=== PATIENT | male | born 1945 | race Caucasian/White ===

== ENCOUNTER 2017-02-10 15:37 | Emergency (ER) | payer BC ==
[~2017-02-10] VITALS: Ht 190.5 cm; Wt 126.5 kg
[~2017-02-10 15:37] MED LIST: ASPI81TA28 PO; ATOR-26 PO; CLOP1TAB15 PO; GABA-113 PO; GLC500 PO; ISOS30TA3 PO; LISI20TA55 PO; METO50TA16 PO; MONT1TAB3 PO
[2017-02-10 15:42] VITALS: TEMP 36.9; Ht 190.5 cm; Wt 126.5 kg
[2017-02-10 16:07] VITALS: O2SAT 94
[2017-02-10] MEDS ORDERED: GLC/500 PO (16:11)
[2017-02-10 16:13] LABS: HEMATOCRIT 42.9 % (42-52); MEAN CELL VOLUME 91.3 fL (80-100); MEAN CORPUSCULAR HEMOGLOBIN 31.1 pg (25-34); MEAN PLATELET VOLUME 11.9 fL (7.4-10.4); PLATELET COUNT 231 K/uL (130-400); WHITE BLOOD COUNT 10.04 K/uL (4.8-10.8)
--- NOTE | 2017-02-10 16:21 | DIAGNOSTIC IMAGING REPORT ---
CHEST ONE VIEW PORTABLE CLINICAL HISTORY: chest pain dyspnea COMPARISON STUDY: 08/12/2014 FINDINGS: Prior median sternotomy. Mild stable cardiomegaly. Lungs are clear. Diaphragms are smooth. IMPRESSION: Chronic change. No acute process. Electronically signed by: Lucian Shields M.D. 02/10/2017 4:20 PM Dictated Date/Time: 02/10/2017 4:19 PM
[2017-02-10 16:26] LABS: PROTHROMBIN TIME (PATIENT) 10.7 SECONDS (9.0-12.0)
[2017-02-10 16:37] LABS: BUN/CREATININE RATIO 18.8 (10-20); CALCIUM 8.7 mg/dl (8.5-10.1); CREATININE 1.8 mg/dl (0.60-1.40); POTASSIUM 4.3 mmol/L (3.5-5.1)
[2017-02-10 16:42] LABS: CKMB/CK RATIO 1.9 (0-3.0)
--- NOTE | 2017-02-10 18:24 | DIAGNOSTIC IMAGING REPORT ---
HEAD CT NONCONTRAST CT DOSE: 884.54 mGy.cm HISTORY: Headache headache TECHNIQUE: Multiaxial CT images of the head were performed without the use of intravenous contrast. Comparison: 07/13/2008 Findings: The paranasal sinuses and mastoid air cells are clear. The calvarium and skull base are intact. The ventricles and sulci are within normal limits. There is no mass, hematoma, midline shift, or acute infarct. 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 There is no new or interval finding. There is no evidence for acute intracranial hemorrhage. Impression: Chronic change including several old infarcts. No acute process. Electronically signed by: Lucian Shields M.D. 02/10/2017 6:22 PM Dictated Date/Time: 02/10/2017 6:20 PM
--- NOTE | 2017-02-10 18:56 | EMERGENCY ROOM VISIT NOTE ---
History Report prepared by Arabella: Liliana Love Under the Supervision of: Dr. Fer Velez D.O. First contact with patient: 15:38 Chief Complaint: CARDIAC ASSESSMENT Stated Complaint: PAIN ACROSS SHOULDERS,HEADACHE,BLURRED VISION Nursing Triage Summary: pt reports while shopping starte with pain in back and sob radiates into head , with vision changes , denies sob , speech is clear and appropriate, denies NV History of Present Illness The patient is a 71 year old male who presents to the Emergency Room with complaints of resolved upper back pain beginning just prior to arrival. He notes that he was out at the store shopping when he began to experiences this pain. He also experienced blurred vision and headache. The patient's notes that his speech changed but has now returned to baseline. Patient denies any symptoms at this time. 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 Review of Systems See HPI for pertinent positives & negatives. A total of 10 systems reviewed and were otherwise negative. Past Medical & Surgical Medical Problems: (1) Diabetes (2) HTN (hypertension) (3) GA (myocardial infarction) Surgical Problems: (1) S/P CABG x 2 Family History Cancer Diabetes mellitus Heart disease Hypertension Social History Smoking Status: Former Smoker Marital Status: Housing Status: lives with family Current/Historical Medications Scheduled Aspirin (Aspirin Ec), 81 MG PO HS Atorvastatin (Lipitor), 80 MG PO QAM Clopidogrel (Plavix), 75 MG PO QAM Gabapentin (Neurontin), 300 MG PO TID Isosorbide Mononitrate Ext Rel (Imdur Ext Rel), 30 MG PO QAM Lisinopril/Hctz (Prinzide 20-25MG), 1 TAB PO QAM Metformin Hcl (Glucophage), 500 MG PO BID Metoprolol Tartrate (Lopressor) (Lopressor), 50 MG PO BID Montelukast Sodium (Singulair), 10 MG PO HS Allergies Coded Allergies: No Known Allergies (Verified , 02/10/17) Physical Exam Vital Signs Date Time Temp Pulse Resp B/P Pulse Ox O2 Delivery O2 Flow Rate FiO2 02/10/17 17:57 56 20 116/74 94 Room Air 02/10/17 17:00 64 20 112/77 94 Room Air 02/10/17 16:09 61 02/10/17 16:07 94 Room Air 02/10/17 16:00 64 20 101/62 95 Room Air 02/10/17 15:42 36.9 67 18 94/58 94 Room Air Physical Exam CONSTITUTIONAL/VITAL SIGNS: Reviewed / noted above. GENERAL: Non-toxic in appearance. INTEGUMENTARY: Warm, dry, and [place]. HEAD: Normocephalic. EYES: without scleral icterus or trauma. ENT/OROPHARYNX: clear and moist. LYMPHADENOPATHY/NECK: Is supple without lymphadenopathy or meningismus. RESPIRATORY: Lungs clear and equal. CARDIOVASCULAR: Regular rate and rhythm. GI/ABDOMEN: Soft and nontender. No organomegaly or pulsatile mass. No rebound or guarding. Normal bowel sounds. EXTREMITIES: Warm and well perfused. BACK: No CVA tenderness. NEUROLOGICAL: Intact without focal deficits. PSYCHIATRIC: normal affect. MUSCULOSKELETAL: Normally developed with good muscle tone. Medical Decision & Procedures ER Provider Diagnostic Interpretation: Radiology results as stated below per my review and radiologist interpretation: CHEST ONE VIEW PORTABLE CLINICAL HISTORY: chest pain dyspnea COMPARISON STUDY: 08/12/2014 FINDINGS: Prior median sternotomy. Mild stable cardiomegaly. Lungs are clear. Diaphragms are smooth. IMPRESSION: Chronic change. No acute process. Electronically signed by: Lucian Shields M.D. 02/10/2017 4:20 PM Dictated Date/Time: 02/10/2017 4:[address] CT DOSE: 884.54 mGy.cm HISTORY: Headache headache TECHNIQUE: Multiaxial CT images of the head were performed without the use of intravenous contrast. Comparison: 07/13/2008 Findings: The paranasal sinuses and mastoid air cells are clear. The calvarium and skull base are intact. The ventricles and sulci are within normal limits. There is no mass, hematoma, midline shift, or acute infarct. 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 There is no new or interval finding. There is no evidence for acute intracranial hemorrhage. Impression: Chronic change including several old infarcts. No acute process. Electronically signed by: Lucian Shields M.D. 02/10/2017 6:22 PM Dictated Date/Time: 02/10/2017 6:20 PM Laboratory Results 02/10/17 16:00 02/10/17 16:00 Test 02/10/17 16:00 02/10/17 16:05 Red Blood Count 4.70 M/uL (4.7-6.1) Mean Corpuscular Volume 91.3 fL (80-100) Mean Corpuscular Hemoglobin 31.1 pg (25-34) Mean Corpuscular Hemoglobin Concent 34.0 g/dl (32-36) RDW Standard Deviation 49.0 fL (36.4-46.3) RDW Coefficient of Variation 14.5 % (11.5-14.5) Mean Platelet Volume 11.9 fL (7.4-10.4) Prothrombin Time 10.7 SECONDS (9.0-12.0) Prothromb Time International Ratio 1.0 (0.9-1.1) Activated Partial Thromboplast Time 24.7 SECONDS (21.0-31.0) Partial Thromboplastin Ratio 1.0 Anion Gap 13.0 mmol/L (3-11) Est Creatinine Clear Calc Drug Dose 55.5 ml/min Estimated GFR () 43.5 Estimated GFR (Non- 37.6 BUN/Creatinine Ratio 18.8 (10-20) Calcium Level 8.7 mg/dl (8.5-10.1) Total Bilirubin 0.5 mg/dl (0.2-1) Aspartate Amino Transf (AST/SGOT) 19 U/L (15-37) Alanine Aminotransferase (ALT/SGPT) 22 U/L (12-78) Alkaline Phosphatase 97 U/L (45-117) Total Creatine Kinase 99 U/L (39-308) Creatine Kinase MB 1.9 ng/ml (0.5-3.6) Creatine Kinase MB Ratio 1.9 (0-3.0) Total Protein 7.3 gm/dl (6.4-8.2) Albumin 3.6 gm/dl (3.4-5.0) Globulin 3.7 gm/dl (2.5-4.0) Albumin/Globulin Ratio 1.0 (0.9-2) Bedside Troponin I 0.000 ng/ml (0-0.045) Laboratory results as stated above per my review. ECG Indication: back/shoulder pain Rate (beats per minute): 64 Rhythm: normal sinus Findings: T-wave inversion (Lateral) Comparison ECG Date: When compared to numerous previous there is minimal new changes ED Course 1653: Previous medical records were reviewed. The patient was evaluated in room C12. A complete history and physical examination was performed. 1856: On reevaluation, the patient is hemodynamically stable. I discussed the results and findings with the patient. He verbalized agreement of the treatment plan. He was discharged home. Medical Decision Differential includes acute coronary syndrome, myocardial infarction, CVA, TIA, anemia, infection, pneumonia, UTI, pyelonephritis, poor nutrition, dehydration, electrolyte disturbance,hypoglycemia. This is a 71-year-old male who presents to the ED with a chief complaint of having a discomfort in the top of his back around 2:30 PM today. He states that his vision a little blurry and he also developed a headache and his speech seemed a little thick according to the . This occurred while he was walking through a store. He came to the emergency department for evaluation. His symptoms have resolved. He reports a history of GA, CABG, CVA, TIAs and diabetes. The patient's vital signs are normal. His physical exam was normal. Neurological exam is normal. He has no symptoms. CBC is normal. BUN is 34 creatinine is 1.8. Troponin is negative. Glucose was 156. Chest x-ray is negative for acute disease. EKG shows a normal sinus rhythm at a rate of [address] depressions in lateral leads. Patient has no chest pains or shortness of breath. CT scan of the brain did not show any acute disease. The patient was told the results of the test. He remains symptomatic during his ED stay. He is felt to be stable for discharge and outpatient follow-up. Impression Primary Impression: transient upper back pain Additional Impressions: Back ache Transient visual disturbance Scribe Attestation The scribe's documentation has been prepared under my direction and personally reviewed by me in its entirety. I confirm that the note above accurately reflects all work, treatment, procedures, and medical decision making performed by me. Departure Information Dispostion Home / Self-Care Referrals Chava Bell M.D. (PCP) Forms IMPORTANT VISIT INFORMATION Patient Instructions My [facility] Additional Instructions Follow-up with your doctor for further care and evaluation in 1-2 days. Return to the emergency department for worsening or new symptoms or any concerns. You have been examined and treated today on an emergency basis only. This is not a substitute for, or an effort to provide, complete comprehensive medical care. It is impossible to recognize and treat all injuries or illnesses in a single emergency department visit. It is therefore important that you follow up closely with your doctor. Call as soon as possible for an appointment. Problem Qualifiers
[2017-02-10 19:16] VITALS: BP 150/86; PULSE 54; O2SAT 98
[2017-08-17] MEDS ORDERED: LPR50X OR (11:30)
== END 2017-02-10 19:16 | disposition home or self-care (01) ==
LOC: C.EDB 15:38 → C.EDC 19:16
DX: M54.9 Dorsalgia, unspecified (principal); H53.9 Unspecified visual disturbance; I25.2 Old myocardial infarction; I10 Essential (primary) hypertension; E11.9 Type 2 diabetes mellitus without complications; Z95.1 Presence of aortocoronary bypass graft; Z86.73 Personal history of transient ischemic attack (TIA), and cerebral infarction without residual deficits; Z80.9 Family history of malignant neoplasm, unspecified; Z83.3 Family history of diabetes mellitus; Z82.49 Family history of ischemic heart disease and other diseases of the circulatory system; Z87.891 Personal history of nicotine dependence; Z79.82 Long term (current) use of aspirin; Z79.02 Long term (current) use of antithrombotics/antiplatelets; Z79.899 Other long term (current) drug therapy

== ENCOUNTER 2017-08-15 16:33 | Inpatient (IN) | payer BC, OTHER ==
[~2017-08-15] VITALS: Ht 190.5 cm; Wt 121.3 kg
[~2017-08-15 16:33] MED LIST changes: +GLC/500 PO; -GLC500 PO
[2017-08-15] MEDS ORDERED: ACET-1256 PO (17:01)
[2017-08-15] MEDS ORDERED: SODIUM CHLORIDE 0.9% 1000ML 2,000 ML IV STA (17:18)
[2017-08-15 17:30] LABS: BASO % 0.7 %; BASO ABS # 0.05 K/uL (0-0.2); COMPLETE YES; EOS % 1.5 %; HEMATOCRIT 31.1 % (42-52); IG% 0.1 %; LYMPH % 21.1 %; LYMPH ABS # 1.58 K/uL (1.2-3.4); MEAN CELL VOLUME 93.1 fL (80-100); MEAN CORPUSCULAR HEMOGLOBIN 29.9 pg (25-34); MEAN CORPUSCULAR HGB CONC 32.2 g/dl (32-36); MEAN PLATELET VOLUME 11.1 fL (7.4-10.4); MONO % 4.9 %; NEUT % 71.7 %; PLATELET COUNT 224 K/uL (130-400); RED BLOOD COUNT 3.34 M/uL (4.7-6.1); WHITE BLOOD COUNT 7.49 K/uL (4.8-10.8)
--- NOTE | 2017-08-15 17:34 | EMERGENCY ROOM VISIT NOTE ---
History Report prepared by Arabella: Ramone Means Under the Supervision of: Dr. Chel Castillo M.D. First contact with patient: 17:13 Chief Complaint: VOMITING Stated Complaint: WEAK, LIGHTHEADED, FLU SINCE SATURDAY- REFERRED Nursing Triage Summary: vomiting and diarrhea since , fever, dizziness, clammy, poor color, called pcp and told to bring to er, hx mi, cva, bypass surgery History of Present Illness The patient is a 71 year old male who presents to the Emergency Room with complaints of nausea that began two days ago. At this time, he suddenly became nauseated and began to experience vomiting and diarrhea. He also is also clammy , chilled, dizzy, weak, and lightheaded. He did not have any diarrhea today. He denies any chest pain, shortness of breath, melena, hematochezia, or abnormal urinary symptoms. He called his PCP today, and they told him to go to the ER. Per the patient's , she states that whenever the patient walks, he strays to the side, like he is intoxicated. He does not take any Lasix or other water pills. He has a past medical history of a SC, CVA, and a bypass surgery. He denies any trouble with his kidneys. Source of History: patient Onset: 2 days ago Position: other (GI) Symptom Intensity: moderate Quality: other (Nausea) Timing: constant Associated Symptoms: + chills, + diaphoresis, + nausea, + vomiting, + weakness, No fevers, No chest pain, No SOB, No melena, No hematochezia, No diarrhea, No urinary symptoms Review of Systems See HPI for pertinent positives & negatives. A total of 10 systems reviewed and were otherwise negative. Past Medical & Surgical Medical Problems: (1) Cerebrovascular disease (2) Coronary artery disease (3) Diabetes mellitus, type 2 (4) Dyslipidemia (5) GERD (gastroesophageal reflux disease) (6) Gout (7) History of atrial fibrillation (8) Hypertension (9) Peripheral vascular disease Surgical Problems: (1) Status post cataract extraction (2) Status post coronary artery bypass grafting (3) Status post repair of paraesophageal diaphragmatic hernia (4) Status post repair of ventral hernia (5) Status post tonsillectomy Family History Cancer Diabetes mellitus Heart disease Hypertension Social History Smoking Status: Former Smoker Drug Use: none Marital Status: Housing Status: lives with family Current/Historical Medications Scheduled Acetaminophen (Tylenol), 1,000 MG PO PRN UD Aspirin (Aspirin Ec), 81 MG PO HS Atorvastatin (Lipitor), 80 MG PO QAM Clopidogrel (Plavix), 75 MG PO QAM Gabapentin (Neurontin), 300 MG PO TID Isosorbide Mononitrate Ext Rel (Imdur Ext Rel), 30 MG PO QAM Lisinopril/Hctz (Prinzide 20-25MG), 1 TAB PO QAM Metformin Hcl (Glucophage), 500 MG PO BID Metoprolol Tartrate (Metoprolol Tartrate), 25 MG OR BID Montelukast Sodium (Singulair), 10 MG PO HS Scheduled PRN Indomethacin (Indocin), 50 MG PO TID PRN for gout attack Nitroglycerin (Nitrostat), 0.4 MG UT PRN PRN for chest pain Allergies Coded Allergies: No Known Allergies (Verified , 02/10/17) Physical Exam Vital Signs Date Time Temp Pulse Resp B/P (MAP) Pulse Ox O2 Delivery O2 Flow Rate FiO2 08/15/17 18:02 56 18 115/61 99 Room Air 08/15/17 17:12 56 08/15/17 17:07 53 16 87/53 98 Room Air 08/15/17 16:39 37.0 60 18 93/53 99 Room Air Physical Exam Vital signs reviewed. General: Ill appearing male, in no significant distress. Noted to be hypotensive. HEENT: No scleral icterus, PERRLA, neck supple. Dry mucous membranes. Atraumatic. Cardiovascular: Regular rate and rhythm, no extra sounds. Pulmonary: Clear to auscultation bilaterally, normal work of breathing. Abdomen: Soft, nontender, nondistended, positive bowel sounds. Musculoskeletal: Atraumatic, no peripheral edema. Neurologic: Patient awake alert and oriented x 3, full strength in all 4 extremities. Cranial nerves 2 through 12 grossly intact. Skin: Warm, dry, no rash Medical Decision & Procedures ER Provider Diagnostic Interpretation: Radiology results as stated below per my review and radiologist interpretation: CT HEAD WITHOUT CONTRAST (CT) CLINICAL HISTORY: dizzy, hypotension, gait abnormality COMPARISON STUDY: 02/10/2017 TECHNIQUE: Axial CT of the brain is performed from the vertex to the skull base. IV contrast was not administered for this examination. A dose lowering technique was utilized adhering to the principles of ALARA. CT DOSE: 614.27 mGy.cm FINDINGS: No intra or extra-axial mass lesions are visualized. There is no CT evidence of acute cortical infarction. There is no evidence of midline shift. There is no acute hemorrhage. No calvarial fractures are visualized. There are patchy white matter hypodensities likely on a small vessel basis. There is an old right occipital infarct. There is an old left basal ganglial lacunar infarct. There are old cortical infarctions within the left parietal lobe. There is no evidence of pathologic ventricular dilatation. There is no evidence of acute sinusitis IMPRESSION: Multiple old infarcts. No acute intracranial findings. Electronically signed by: Obdulio Ardon M.D. 08/15/2017 6:01 PM Dictated Date/Time: 08/15/2017 5:57 PM CHEST ONE VIEW PORTABLE CLINICAL HISTORY: hypotension COMPARISON STUDY: 02/10/2017 FINDINGS: The cardiac and mediastinal contours remain stable. There are postsurgical changes of a midline sternotomy. There is a thoracic scoliosis. There is no failure. There is no focal pulmonary consolidation. There are no pleural effusions.[ IMPRESSION: No active disease in the chest. Electronically signed by: Obdulio Ardon M.D. 08/15/2017 5:50 PM Dictated Date/Time: 08/15/2017 5:50 PM (RENAL)RETROPERITON COMP CLINICAL HISTORY: 71 years-old Male presenting with MCKENZIE. TECHNIQUE: Real-time grayscale and limited color Doppler ultrasound imaging of the kidneys and bladder was performed. COMPARISON: CT from 09/11/2014. FINDINGS: Right kidney: Normal echogenicity. Right kidney measures 10.4 cm. No hydronephrosis. No convincing evidence of calculus or mass. Normal perfusion. Left kidney: Normal echogenicity. Left kidney measures 10.2 cm. No hydronephrosis. No convincing evidence of calculus or mass. Normal perfusion. Bladder: No bladder wall thickening. Bilateral ureteral jets not visualized. Other: None. IMPRESSION: 1. Essentially normal renal ultrasound. No evidence of obstruction. Electronically signed by: Chava Broussard M.D. 08/15/2017 8:33 PM Dictated Date/Time: 08/15/2017 8:32 PM Laboratory Results Test 08/15/17 17:15 08/15/17 17:24 08/15/17 17:27 08/15/17 18:05 Prothrombin Time 10.5 SECONDS (9.0-12.0) Prothromb Time International Ratio 1.0 (0.9-1.1) Activated Partial Thromboplast Time 22.2 SECONDS (21.0-31.0) Partial Thromboplastin Ratio 0.9 Magnesium Level 2.2 mg/dl (1.8-2.4) Direct Bilirubin < 0.1 mg/dl (0-0.2) Total Creatine Kinase 84 U/L (39-308) Creatine Kinase MB 1.2 ng/ml (0.5-3.6) Creatine Kinase MB Ratio 1.4 (0-3.0) Bedside Troponin I < 0.030 ng/ml (0-0.045) Bedside Lactic Acid Venous 1.10 mmol/L (0.90-1.70) Urine Color DK YELLOW Urine Appearance CLOUDY (CLEAR) Urine pH 5.0 (4.5-7.5) Urine Specific [place] 1.025 (1.000-1.030) Urine Protein NEG (NEG) Urine Glucose (UA) NEG (NEG) Urine Ketones TRACE (NEG) Urine Occult Blood NEG (NEG) Urine Nitrite NEG (NEG) Urine Bilirubin NEG (NEG) Urine Urobilinogen NEG (NEG) Urine Leukocyte Esterase SMALL (NEG) Urine WBC (Auto) 5-10 /hpf (0-5) Urine RBC (Auto) 0-4 /hpf (0-4) Urine Hyaline Casts (Auto) 5-10 /lpf (0-5) Urine Epithelial Cells (Auto) >30 /lpf (0-5) Urine Bacteria (Auto) NEG (NEG) Urine Pathogenic Casts /lpf (0) Laboratory results per my review. Medications Administered Medications (Trade) Dose Ordered Sig/Wilemr Route Start Time Stop Time Status Last Admin Dose Admin Sodium Chloride 2,000 ml @ 999 mls/hr Q2H1M STAT IV 08/15/17 17:18 08/16/17 09:28 DC 08/15/17 17:18 999 MLS/HR ECG Indication: weakness Rate (beats per minute): 54 Rhythm: sinus bradycardia Findings: nonspecific-ST abn (anterior and lateral), no ectopy ED Course 1713: Past medical records reviewed. The patient was evaluated in room A9. A complete history and physical examination was performed. 1718: Ordered Sodium Chloride 2000 ml @ 999 mls/hr IV 1907: Upon reevaluation, the patient is resting comfortably. I discussed laboratory and radiographic results with him. He verbalized agreement of the treatment plan. I spoke with Dr. Cardenas of the [facility]. The patient will be evaluated for further management and care. Medical Decision Differential diagnosis: Etiologies such as metabolic, infection, hypo/hyperglycemia, electrolyte abnormalities, cardiac sources, intracerebral event, toxicologic, neurologic, as well as others were entertained. This pt was evaluated and found to be in no distress. IV access was obtained and lab work was drawn. Pt was found to be hypotensive. He was hydrated with 2L NSS. Lab work reveals a creatinine of 2.9 with creatinine of 76. Head CT was performed and is indicative of old injury. Renal US is negative. UA is negative. Pt will be evaluated by the hospitalist for further management. Medication Reconcilliation Current Medication List: was personally reviewed by me Blood Pressure Screening Patient's blood pressure: Low blood pressure Consults Time Called: 1903 Consulting Physician: Dr. Cardenas - [facility] Returned Call: 1907 I reviewed the patient's case with him. He will evaluate the patient for further management. Impression Primary Impression: Dehydration Additional Impressions: MCKENZIE (acute kidney injury) Hypotension Scribe Attestation The scribe's documentation has been prepared under my direction and personally reviewed by me in its entirety. I confirm that the note above accurately reflects all work, treatment, procedures, and medical decision making performed by me. Departure Information Dispostion Being Evaluated By Hospitalist Prescriptions Metoprolol Tartrate (Metoprolol Tartrate) 50 Mg Tab 25 MG OR BID, #30 TAB Prov: Michael Walton M.D. 08/17/17 Referrals Chava Bell M.D. (PCP) Patient Instructions My [facility] Problem Qualifiers
[2017-08-15 17:49] LABS: ALT/SGPT 22 U/L (12-78); BLOOD UREA NITROGEN 76 mg/dl (7-18); BUN/CREATININE RATIO 26.3 (10-20); CALCIUM 8.6 mg/dl (8.5-10.1); CARBON DIOXIDE 23 mmol/L (21-32); CHLORIDE 112 mmol/L (98-107); GLUCOSE 91 mg/dl (70-99); MAGNESIUM 2.2 mg/dl (1.8-2.4); POTASSIUM 4.6 mmol/L (3.5-5.1); SODIUM 143 mmol/L (136-145)
--- NOTE | 2017-08-15 17:52 | DIAGNOSTIC IMAGING REPORT ---
CHEST ONE VIEW PORTABLE CLINICAL HISTORY: hypotension COMPARISON STUDY: 02/10/2017 FINDINGS: The cardiac and mediastinal contours remain stable. There are postsurgical changes of a midline sternotomy. There is a thoracic scoliosis. There is no failure. There is no focal pulmonary consolidation. There are no pleural effusions.[ IMPRESSION: No active disease in the chest. Electronically signed by: Obdulio Ardon M.D. 08/15/2017 5:50 PM Dictated Date/Time: 08/15/2017 5:50 PM
[2017-08-15 17:54] LABS: ALKALINE PHOSPHATASE 76 U/L (45-117); AST/SGOT 19 U/L (15-37); CKMB/CK RATIO 1.4 (0-3.0)
--- NOTE | 2017-08-15 18:02 | DIAGNOSTIC IMAGING REPORT ---
CT HEAD WITHOUT CONTRAST (CT) CLINICAL HISTORY: dizzy, hypotension, gait abnormality COMPARISON STUDY: 02/10/2017 TECHNIQUE: Axial CT of the brain is performed from the vertex to the skull base. IV contrast was not administered for this examination. A dose lowering technique was utilized adhering to the principles of ALARA. CT DOSE: 614.27 mGy.cm FINDINGS: No intra or extra-axial mass lesions are visualized. There is no CT evidence of acute cortical infarction. There is no evidence of midline shift. There is no acute hemorrhage. No calvarial fractures are visualized. There are patchy white matter hypodensities likely on a small vessel basis. There is an old right occipital infarct. There is an old left basal ganglial lacunar infarct. There are old cortical infarctions within the left parietal lobe. There is no evidence of pathologic ventricular dilatation. There is no evidence of acute sinusitis IMPRESSION: Multiple old infarcts. No acute intracranial findings. Electronically signed by: Obdulio Ardon M.D. 08/15/2017 6:01 PM Dictated Date/Time: 08/15/2017 5:57 PM
[2017-08-15 18:30] LABS: URINE APPEARANCE CLOUDY (CLEAR); URINE BILIRUBIN NEG (NEG); URINE COLOR DK YELLOW; URINE EPITHELIAL CELL AUTO >30 /lpf (0-5); URINE NITRITE NEG (NEG); URINE SPECIFIC GRAVITY 1.025 (1.000-1.030); UROBILINOGEN NEG (NEG); ZZUR CULT IF INDIC CLEAN CATCH NO
[2017-08-15 18:36] LABS: MANUAL MICROSCOPIC REQUIRED? NO; REVIEW REQ? YES
--- NOTE | 2017-08-15 19:17 | History and Physical ---
History & Physical Date & Time of Service: Aug 15, 2017 at 19:17 . Chief Complaint: weakness . Primary Care Physician: Chava Bell M.D. . History of Present Illness Source: patient, family, clinic records, hospital records 71 [address]O male followed by Dr. Bell for Family Medicine. History of ischemic heart disease, cerebrovascular disease, hypertension, DM type 2, and other problems noted below. He was in his usual state of health until 2 nights prior to admission when he developed nausea, vomiting, diarrhea after eating supper. No hematemesis, melena, hematochezia. No abdominal pain. Also noted fever, chills, myalgias. Had multiple episodes of diarrhea that evening. Nausea and vomiting subsided by the next morning. Yesterday and today felt weak and lightheaded. Referred to ED for further evaluation. [place] somewhat better after receiving IV fluids in ED. . Past Medical/Surgical History Chronic and Resolved Medical Problems: (1) Cerebrovascular disease Permanent Comment: s/p stroke Status: Chronic (2) Coronary artery disease Permanent Comment: s/p CA, s/p CABG x 2 Status: Chronic (3) Diabetes mellitus, type 2 Status: Chronic (4) Dyslipidemia Status: Chronic (5) GERD (gastroesophageal reflux disease) Status: Chronic (6) Gout Status: Chronic (7) History of atrial fibrillation Status: Chronic (8) Hypertension Status: Chronic (9) Peripheral vascular disease Status: Chronic Surgical Problems: (1) Status post cataract extraction Status: Chronic (2) Status post coronary artery bypass grafting Status: Chronic (3) Status post repair of paraesophageal diaphragmatic hernia Status: Chronic (4) Status post repair of ventral hernia Status: Chronic (5) Status post tonsillectomy Status: Chronic . Family History Cancer Diabetes mellitus Heart disease Hypertension Social History Smoking Status: Former Smoker Alcohol Use: occasionally Drug Use: none Marital Status: Immunizations History of Influenza Vaccine: Yes History of Tetanus Vaccine?: Pt. states he is up to date History of Pneumococcal: Yes History of Hepatitis B Vaccine: pt states vaccine given prior to 2002 Multi-Drug Resistant Organisms History of MDRO: No Allergies Coded Allergies: No Known Allergies (Verified , 02/10/17) Home Medications Scheduled Acetaminophen (Tylenol), 1,000 MG PO PRN UD Aspirin (Aspirin Ec), 81 MG PO HS Atorvastatin (Lipitor), 80 MG PO QAM Clopidogrel (Plavix), 75 MG PO QAM Gabapentin (Neurontin), 300 MG PO TID Isosorbide Mononitrate Ext Rel (Imdur Ext Rel), 30 MG PO QAM Lisinopril/Hctz (Prinzide 20-25MG), 1 TAB PO QAM Metformin Hcl (Glucophage), 500 MG PO BID Metoprolol Tartrate (Lopressor) (Lopressor), 50 MG PO BID Montelukast Sodium (Singulair), 10 MG PO HS Scheduled PRN Indomethacin (Indocin), 50 MG PO TID PRN for gout attack Nitroglycerin (Nitrostat), 0.4 MG UT PRN PRN for chest pain Review of Systems Constitutional: + fever, + chills, + fatigue Eyes: No worsening of vision, No diplopia ENT: No nasal symptoms, No sore throat Respiratory: No cough, No shortness of breath Cardiovascular: No chest pain, No edema, No palpitations Abdomen: + problem reported (as noted above in HPI) Musculoskeletal: + muscle pain, No joint pain Genitourinary - Male: No hematuria, No dysuria Neurologic: + problem reported (no headaches; + diabetic neuropathy) Hematologic / Lymphatic: No abnormal bleeding/bruising, No swollen lymph nodes Integumentary: No rash, No new/changing skin lesions Physical Exam Vital Signs Date Time Temp Pulse Resp B/P (MAP) Pulse Ox O2 Delivery O2 Flow Rate FiO2 08/15/17 18:02 56 18 115/61 99 Room Air 08/15/17 17:12 56 08/15/17 17:07 53 16 87/53 98 Room Air 08/15/17 16:39 37.0 60 18 93/53 99 Room Air General Appearance: WD/WN, no apparent distress Head: normocephalic, atraumatic Eyes: normal inspection, PERRL, EOMI, sclerae normal (conjunctivae pink) ENT: normal ENT inspection, hearing grossly normal, pharynx normal Neck: supple, no adenopathy, thyroid normal, no JVD, trachea midline Respiratory/Chest: lungs clear (to A&P), no respiratory distress, no accessory muscle use Cardiovascular: regular rate, rhythm, no edema, no gallop, no JVD, normal peripheral pulses, + systolic murmur (I/ systolic murmur at base) Abdomen/GI: normal bowel sounds, non tender, soft, no organomegaly, no pulsatile mass Extremities/Musculoskelatal: normal inspection, no calf tenderness, normal capillary refill, no pedal edema, + pertinent finding (no diabetic foot lesions) 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 (PERRL, EOMI, no facial palsy, no dysarthria), no motor/sensory deficits (motor strenght upper and lower extremities 5/5 bilat), alert, normal mood/affect, normal reflexes (patellar DTR 's 2/2, plantar reflexes downgoing), oriented x 3 Skin: normal color, warm/dry, no rash Lymphatic: no adenopathy (cervical) Diagnostics Laboratory Results Results Past 24 Hours Test 08/15/17 17:15 08/15/17 17:24 08/15/17 17:27 08/15/17 18:05 Range/Units White Blood Count 7.49 4.8-10.8 K/uL Red Blood Count 3.34 4.7-6.1 M/uL Hemoglobin 10.0 14.0-18.0 g/dL Hematocrit 31.1 42-52 % Mean Corpuscular Volume 93.1 80-100 fL Mean Corpuscular Hemoglobin 29.9 25-34 pg Mean Corpuscular Hemoglobin Concent 32.2 32-36 g/dl Platelet Count 224 130-400 K/uL Mean Platelet Volume 11.1 7.4-10.4 fL Neutrophils (%) (Auto) 71.7 % Lymphocytes (%) (Auto) 21.1 % Monocytes (%) (Auto) 4.9 % Eosinophils (%) (Auto) 1.5 % Basophils (%) (Auto) 0.7 % Neutrophils # (Auto) 5.37 1.4-6.5 K/uL Lymphocytes # (Auto) 1.58 1.2-3.4 K/uL Monocytes # (Auto) 0.37 0.11-0.59 K/uL Eosinophils # (Auto) 0.11 0-0.5 K/uL Basophils # (Auto) 0.05 0-0.2 K/uL RDW Standard Deviation 49.7 36.4-46.3 fL RDW Coefficient of Variation 14.5 11.5-14.5 % Immature Granulocyte % (Auto) 0.1 % Immature Granulocyte # (Auto) 0.01 0.00-0.02 K/uL Sodium Level 143 136-145 mmol/L Potassium Level 4.6 3.5-5.1 mmol/L Chloride Level 112 98-107 mmol/L Carbon Dioxide Level 23 21-32 mmol/L Anion Gap 8.0 3-11 mmol/L Blood Urea Nitrogen 76 7-18 mg/dl Creatinine 2.90 0.60-1.40 mg/dl Est Creatinine Clear Calc Drug Dose 33.7 ml/min Estimated GFR () 24.5 Estimated GFR (Non- 21.1 BUN/Creatinine Ratio 26.3 10-20 Random Glucose 91 70-99 mg/dl Calcium Level 8.6 8.5-10.1 mg/dl Magnesium Level 2.2 1.8-2.4 mg/dl Total Bilirubin 0.4 0.2-1 mg/dl Direct Bilirubin < 0.1 0-0.2 mg/dl Aspartate Amino Transf (AST/SGOT) 19 15-37 U/L Alanine Aminotransferase (ALT/SGPT) 22 12-78 U/L Alkaline Phosphatase 76 45-117 U/L Total Creatine Kinase 84 39-308 U/L Creatine Kinase MB 1.2 0.5-3.6 ng/ml Creatine Kinase MB Ratio 1.4 0-3.0 Total Protein 6.6 6.4-8.2 gm/dl Albumin 3.4 3.4-5.0 gm/dl Bedside Troponin I < 0.030 0-0.045 ng/ml Bedside Lactic Acid Venous 1.10 0.90-1.70 mmol/L Urine Color DK YELLOW Urine Appearance CLOUDY CLEAR Urine pH 5.0 4.5-7.5 Urine Specific [place] 1.025 1.000-1.030 Urine Protein NEG NEG Urine Glucose (UA) NEG NEG Urine Ketones TRACE NEG Urine Occult Blood NEG NEG Urine Nitrite NEG NEG Urine Bilirubin NEG NEG Urine Urobilinogen NEG NEG Urine Leukocyte Esterase SMALL NEG Urine WBC (Auto) 5-10 0-5 /hpf Urine RBC (Auto) 0-4 0-4 /hpf Urine Hyaline Casts (Auto) 5-10 0-5 /lpf Urine Epithelial Cells (Auto) >30 0-5 /lpf Urine Bacteria (Auto) NEG NEG Urine Pathogenic Casts 0 /lpf Microbiology Results 08/15/17 Blood Culture, Received Pending 08/15/17 Blood Culture, Received Pending Diagnostic Radiology CHEST ONE VIEW PORTABLE FINDINGS: The cardiac and mediastinal contours remain stable. There are postsurgical changes of a midline sternotomy. There is a thoracic scoliosis. There is no failure. There is no focal pulmonary consolidation. There are no pleural effusions.[ IMPRESSION: No active disease in the chest. Electronically signed by: Obdulio Ardon M.D. 08/15/2017 5:50 PM Dictated Date/Time: 08/15/2017 5:[address] HEAD WITHOUT CONTRAST (CT) FINDINGS: No intra or extra-axial mass lesions are visualized. There is no CT evidence of acute cortical infarction. There is no evidence of midline shift. There is no acute hemorrhage. No calvarial fractures are visualized. There are patchy white matter hypodensities likely on a small vessel basis. There is an old right occipital infarct. There is an old left basal ganglial lacunar infarct. There are old cortical infarctions within the left parietal lobe. There is no evidence of pathologic ventricular dilatation. There is no evidence of acute sinusitis IMPRESSION: Multiple old infarcts. No acute intracranial findings. Electronically signed by: Obdulio Ardon M.D. 08/15/2017 6:01 PM Dictated Date/Time: 08/15/2017 5:57 PM (RENAL)RETROPERITON COMP FINDINGS: Right kidney: Normal echogenicity. Right kidney measures 10.4 cm. No hydronephrosis. No convincing evidence of calculus or mass. Normal perfusion. Left kidney: Normal echogenicity. Left kidney measures 10.2 cm. No hydronephrosis. No convincing evidence of calculus or mass. Normal perfusion. Bladder: No bladder wall thickening. Bilateral ureteral jets not visualized. Other: None. IMPRESSION: 1. Essentially normal renal ultrasound. No evidence of obstruction. Electronically signed by: Chava Broussard M.D. 08/15/2017 8:33 PM Dictated Date/Time: 08/15/2017 8:32 PM . EKG EKG performed at 17:06 reviewed and demonstrated SB at 54 / minute, slight ST depression and biphasic T-waves I, aVL. Tracing compared to 02/10/17- no significant changes. . Impression Assessment and Plan ACUTE KIDNEY INJURY Serum creatine 2.9, compared to baseline of 1.3. Acute kidney injury probably due to volume depletion from vomiting and diarrhea. No obstruction per renal US. IV fluids. Hold lisinopril, HCTZ, metformin. Follow labs. HYPOTENSION BP's in ED 93/53, 87/53. Hemodynamics improved with fluid resuscitation. Hypotension most likely due to volume depletion. Does not appear to be septic. No GI bleeding Hold lisinopril and HCTZ. Decrease metoprolol dose temporarily. Continue IV fluids. NAUSEA / VOMITING / DIARRHEA Probable viral gastroenteritis. Symptoms resolved. CORONARY ARTERY DISEASE Status post CA, status post CABG. No anginal symptoms. Continue aspirin and metoprolol (at reduced dose until hemodynamics improve). CEREBROVASCULAR DISEASE CT demonstrates old stroke, no new events. Continue aspirin and statin. HYPERTENSION BP's low in ED. Hold lisinopril and HCTZ. Reduced dose of metoprolol until hemodynamics improve. Follow and titrate Rx. DM TYPE 2 Well-controlled at home. Random blood sugar in ED 91. Hold metformin during hospital stay. Follow blood sugars. Lantus + NovoLog per protocol. VTE PROPHYLAXIS Moderate risk. SQ heparin. Ambulate. RESUSCITATION STATUS Full code. DISPOSITION Admit to Med-Surg Unit. Expected discharge to home. Family Medicine follow-up with Dr. Bell. . VTE Prophylaxis Risk Level: Moderate Given or contraindicated: Unfractionated heparin SQ
[2017-08-15] MEDS ORDERED: ACETAMINOPHEN 325 MG TAB PO PRN (19:30)
[2017-08-15] MEDS ORDERED: ONDANSETRON INJ 2 MG/ML 2 ML VIAL IV PRN (19:30)
[2017-08-15 19:49] LABS: PARTIAL THROMBOPLASTIN RATIO 0.9; PROTHROMBIN TIME (PATIENT) 10.5 SECONDS (9.0-12.0)
[2017-08-15] MEDS ORDERED: INDO-24 PO (20:01)
[2017-08-15] MEDS ORDERED: NTRGSL/4 UT (20:01)
[2017-08-15] MEDS ORDERED: NITROGLYCERIN 0.4 MG SL PER TAB CHARGE UT PRN (20:30)
--- NOTE | 2017-08-15 20:35 | DIAGNOSTIC IMAGING REPORT ---
(RENAL)RETROPERITON COMP CLINICAL HISTORY: 71 years-old Male presenting with MCKENZIE. TECHNIQUE: Real-time grayscale and limited color Doppler ultrasound imaging of the kidneys and bladder was performed. COMPARISON: CT from 09/11/2014. FINDINGS: Right kidney: Normal echogenicity. Right kidney measures 10.4 cm. No hydronephrosis. No convincing evidence of calculus or mass. Normal perfusion. Left kidney: Normal echogenicity. Left kidney measures 10.2 cm. No hydronephrosis. No convincing evidence of calculus or mass. Normal perfusion. Bladder: No bladder wall thickening. Bilateral ureteral jets not visualized. Other: None. IMPRESSION: 1. Essentially normal renal ultrasound. No evidence of obstruction. Electronically signed by: Chava Broussard M.D. 08/15/2017 8:33 PM Dictated Date/Time: 08/15/2017 8:32 PM
[2017-08-15] MEDS ORDERED: DEXTROSE 50% 50 ML SYR IV PRN (21:00)
[2017-08-15] MEDS ORDERED: GLUCOSE 10 TABS/TUBE PO PRN (21:00)
[2017-08-15] MEDS: INSULIN ASPART 100 UNITS/ML 3 ML PEN SC SCH (21:00)
[2017-08-15] MEDS ORDERED: GLUCAGON FOR INJ 1 MG VIAL SQ PRN (21:00)
[2017-08-15] MEDS ORDERED: GLUCOSE 40% GEL 15 GM TUBE PO PRN (21:00)
[2017-08-15] MEDS: INSULIN GLARGINE SOLOSTAR 100 UNITS/ML 3 ML PEN SC SCH (21:15)
[2017-08-15] MEDS: METOPROLOL TARTRATE 25 MG TAB PO SCH (21:15)
[2017-08-15 21:19] VITALS: BP 124/82; PULSE 60; TEMP 36.9; O2SAT 100; Ht 190.5 cm; Wt 121.3 kg
[2017-08-15 21:30] VITALS: PULSE 56
[2017-08-15] MEDS: ASPIRIN 81 MG ECTAB PO SCH (21:34)
[2017-08-15] MEDS: GABAPENTIN 300 MG CAP PO SCH (21:34)
[2017-08-15] MEDS: MONTELUKAST SOD 10 MG TAB PO SCH (21:34)
[2017-08-15] MEDS: HEPARIN SOD 5000 UNIT/0.5 ML CARP SQ SCH (21:39)
[2017-08-15] MEDS: SODIUM CHLORIDE 0.9% 1000ML 1,000 ML IV SCH (22:31)
[2017-08-15 23:52] VITALS: BP 97/56; PULSE 66; TEMP 36.7; O2SAT 98
[2017-08-16 05:36] LABS: HEMATOCRIT 26.6 % (42-52); MEAN CORPUSCULAR HEMOGLOBIN 31.1 pg (25-34); MEAN CORPUSCULAR HGB CONC 33.5 g/dl (32-36); MEAN PLATELET VOLUME 10.9 fL (7.4-10.4); PLATELET COUNT 171 K/uL (130-400); RED BLOOD COUNT 2.86 M/uL (4.7-6.1); WHITE BLOOD COUNT 5.49 K/uL (4.8-10.8)
[2017-08-16] MEDS: SODIUM CHLORIDE 0.9% 1000ML 1,000 ML IV SCH (06:11)
[2017-08-16 06:13] LABS: ESTIMATED AVERAGE GLUCOSE 134 mg/dl; HA1C FLAG Normal (Normal)
[2017-08-16 06:19] LABS: BUN/CREATININE RATIO 38.2 (10-20); CALCIUM 7.8 mg/dl (8.5-10.1); CREATININE 1.7 mg/dl (0.60-1.40); POTASSIUM 4.5 mmol/L (3.5-5.1)
[2017-08-16] MEDS: INSULIN ASPART 100 UNITS/ML 3 ML PEN SC SCH ×4 (06:30→21:00)
[2017-08-16 07:20] VITALS: BP 139/71; PULSE 68; TEMP 36.3; O2SAT 100
[2017-08-16] MEDS: INSULIN GLARGINE SOLOSTAR 100 UNITS/ML 3 ML PEN SC SCH ×2 (08:00→21:50)
[2017-08-16] MEDS: ATORVASTATIN 40 MG TAB PO SCH (08:05)
[2017-08-16] MEDS: METOPROLOL TARTRATE 25 MG TAB PO SCH ×2 (08:06→21:44)
[2017-08-16] MEDS: CLOPIDOGREL BISULFATE 75 MG TAB PO SCH (08:06)
[2017-08-16] MEDS: ISOSORBIDE MONONITRATE 30 MG TABCR PO SCH (08:06)
[2017-08-16] MEDS: GABAPENTIN 300 MG CAP PO SCH ×3 (08:06→21:45)
[2017-08-16] MEDS: HEPARIN SOD 5000 UNIT/0.5 ML CARP SQ SCH ×2 (08:11→21:49)
[2017-08-16 10:17] VITALS: BP 139/71; PULSE 68; TEMP 36.3; O2SAT 100
[2017-08-16 15:28] VITALS: BP 121/64; PULSE 66; TEMP 36.9; O2SAT 97
--- NOTE | 2017-08-16 15:55 | Progress Note ---
Progress Note Date of Service Aug 16, 2017. Progress Note Since night time hospital admission, patient doing well. Seen and examined with patient's at bedside. patient denies further symptoms of nausea, vomiting, diarrhea. creatinine after IV fluid trended down from 2.9 to 1.7. switched from IV fluids to oral intake and diet. creatinine baseline from outpatient labs was 1.33. will repeat labs tomorrow AM. Other issues CORONARY ARTERY DISEASE Status post [place], status post CABG. No anginal symptoms. Continue aspirin and metoprolol (at reduced dose until hemodynamics improve). CEREBROVASCULAR DISEASE CT demonstrates old stroke, no new events. Continue aspirin and statin. HYPERTENSION BP's low in ED. Hold lisinopril and HCTZ. Reduced dose of metoprolol until hemodynamics improve. Follow and titrate Rx. DM TYPE 2 Well-controlled at home. Random blood sugar in ED 91. Hold metformin during hospital stay. Follow blood sugars. Lantus + NovoLog per protocol. VTE PROPHYLAXIS Moderate risk. SQ heparin. Ambulate. General Appearance: WD/WN, no apparent distress Head: normocephalic, atraumatic Eyes: normal inspection, PERRL, EOMI, sclerae normal ENT: normal ENT inspection, hearing grossly normal, pharynx normal Neck: supple, no adenopathy, thyroid normal, no JVD, trachea midline Respiratory/Chest: lungs clear no respiratory distress, no accessory muscle use Cardiovascular: regular rate, rhythm, no edema, no gallop, no JVD, normal peripheral pulses, I/ systolic murmur at base Abdomen/GI: normal bowel sounds, non tender, soft, no organomegaly, no pulsatile mass Extremities: normal inspection, no calf tenderness, normal capillary refill, no pedal edema, Neurologic, EOMI, no dysarthria, no motor/sensory deficits, alert, normal mood/ affect, Skin: normal color, warm/dry, no rash Disposition: likely discharge home tomorrow. follow up appoints with Dr. Bell at [facility] on 08/19/17 at 8:45 AM have been made
[2017-08-16 16:00] VITALS: O2SAT 97
[2017-08-16] MEDS: ASPIRIN 81 MG ECTAB PO SCH (21:44)
[2017-08-16] MEDS: MONTELUKAST SOD 10 MG TAB PO SCH (21:45)
[2017-08-17] VITALS: O2SAT 97
[2017-08-17 00:09] VITALS: BP 134/75; PULSE 68; TEMP 36.9; O2SAT 97
[2017-08-17 05:51] VITALS: BP 129/77; PULSE 70; TEMP 36.7; O2SAT 97
[2017-08-17] MEDS: CLOPIDOGREL BISULFATE 75 MG TAB PO SCH (07:48)
[2017-08-17] MEDS: METOPROLOL TARTRATE 25 MG TAB PO SCH (07:49)
[2017-08-17] MEDS: GABAPENTIN 300 MG CAP PO SCH (07:49)
[2017-08-17] MEDS: ISOSORBIDE MONONITRATE 30 MG TABCR PO SCH (07:50)
[2017-08-17] MEDS: INSULIN GLARGINE SOLOSTAR 100 UNITS/ML 3 ML PEN SC SCH (07:53)
[2017-08-17] MEDS: ATORVASTATIN 40 MG TAB PO SCH (08:17)
[2017-08-17] MEDS: HEPARIN SOD 5000 UNIT/0.5 ML CARP SQ SCH (08:24)
[2017-08-17] MEDS: INSULIN ASPART 100 UNITS/ML 3 ML PEN SC SCH (08:24)
[2017-08-17 09:14] LABS: BASO % 0.8 %; BASO ABS # 0.05 K/uL (0-0.2); EOS % 1.6 %; IG% 0.2 %; LYMPH % 17.2 %; MEAN CELL VOLUME 90.9 fL (80-100); MEAN CORPUSCULAR HEMOGLOBIN 30.8 pg (25-34); MEAN PLATELET VOLUME 11.1 fL (7.4-10.4); MONO % 5.5 %; NEUT % 74.7 %; PLATELET COUNT 195 K/uL (130-400); RED BLOOD COUNT 3.41 M/uL (4.7-6.1); WHITE BLOOD COUNT 6.39 K/uL (4.8-10.8)
[2017-08-17 09:22] LABS: COMPLETE YES; MEAN CORPUSCULAR HGB CONC 33.9 g/dl (32-36)
[2017-08-17 09:51] LABS: BUN/CREATININE RATIO 23.9 (10-20); CALCIUM 8.6 mg/dl (8.5-10.1); CREATININE 1.3 mg/dl (0.60-1.40); POTASSIUM 4.2 mmol/L (3.5-5.1)
--- NOTE | 2017-08-17 11:11 | Progress Note ---
Progress Note Date of Service Aug 17, 2017. Progress Note Subjective: patient back at baseline health. denies further episodes of nausea/ vomiting/diarrhea/lightheadedness for which symptoms brought him to the hospital General Appearance: WD/WN, no apparent distress Head: normocephalic, atraumatic Eyes: normal inspection, PERRL, EOMI, sclerae normal ENT: normal ENT inspection, hearing grossly normal, pharynx normal Neck: supple, no adenopathy, thyroid normal, no JVD, trachea midline Respiratory/Chest: lungs clear no respiratory distress, no accessory muscle use Cardiovascular: regular rate, rhythm, no edema, no gallop, no JVD, normal peripheral pulses, I/ systolic murmur at base Abdomen/GI: normal bowel sounds, non tender, soft, no organomegaly, no pulsatile mass Extremities: normal inspection, no calf tenderness, normal capillary refill, no pedal edema, Neurologic, EOMI, no dysarthria, no motor/sensory deficits, alert, normal mood/ affect, Skin: normal color, warm/dry, no rash ACUTE KIDNEY INJURY: resolved Acute kidney injury probably due to volume depletion from vomiting and diarrhea. Since hospital admission, patient denies further symptoms of nausea, vomiting, diarrhea. creatinine after IV fluid trended down from 2.9 to 1.7 on 08/16/17. switched from IV fluids to oral intake and diet with subsequent creatinine lab on 08/17/17 1.3 which is comparable to creatinine baseline from outpatient labs of 1.33. Serum creatine 2.9, compared to baseline of 1.3. No obstruction per renal US. his home dose lisinopril-HCTZ was held during hospital stay but blood pressure of 130s systolic is within normal ranges can continue home dose lisinopril-HCTZ HYPOTENSION: resolved BP's in ED 93/53, 87/53. -his home dose lisinopril-HCTZ was held during hospital stay but blood pressure of 130s systolic is within normal ranges NAUSEA / VOMITING / DIARRHEA: resolved Probable viral gastroenteritis. CORONARY ARTERY DISEASE Status post [place], status post CABG. No anginal symptoms. Continue home dose aspirin On this admission his metoprolol of 50 mg BID at home was reduced to 25 mg BID with max heart rate 70 bpm, patient can continue 25 mg BID and follow up with his primary care doctor for further titration if needed CEREBROVASCULAR DISEASE CT head demonstrates old stroke, no new events. Continue aspirin and statin. HYPERTENSION BP's low in ED. Hold lisinopril and HCTZ. Reduced dose of metoprolol until hemodynamics improve. Follow and titrate Rx. DM TYPE 2 Well-controlled at home. Random blood sugar in ED 91. Held metformin during hospital stay and was placed on subcutaneous insulin Can restart metformin at home Studies: CHEST ONE VIEW PORTABLE CLINICAL HISTORY: hypotension COMPARISON STUDY: 02/10/2017 FINDINGS: The cardiac and mediastinal contours remain stable. There are postsurgical changes of a midline sternotomy. There is a thoracic scoliosis. There is no failure. There is no focal pulmonary consolidation. There are no pleural effusions. IMPRESSION: No active disease in the chest. Electronically signed by: Obdulio Ardon M.D. 08/15/2017 5:50 PM Dictated Date/Time: 08/15/2017 5:[address] HEAD WITHOUT CONTRAST (CT) FINDINGS: No intra or extra-axial mass lesions are visualized. There is no CT evidence of acute cortical infarction. There is no evidence of midline shift. There is no acute hemorrhage. No calvarial fractures are visualized. There are patchy white matter hypodensities likely on a small vessel basis. There is an old right occipital infarct. There is an old left basal ganglial lacunar infarct. There are old cortical infarctions within the left parietal lobe. There is no evidence of pathologic ventricular dilatation. There is no evidence of acute sinusitis IMPRESSION: Multiple old infarcts. No acute intracranial findings. Electronically signed by: Obdulio Ardon M.D. 08/15/2017 6:01 PM Dictated Date/Time: 08/15/2017 5:57 PM (RENAL)RETROPERITON COMP FINDINGS: Right kidney: Normal echogenicity. Right kidney measures 10.4 cm. No hydronephrosis. No convincing evidence of calculus or mass. Normal perfusion. Left kidney: Normal echogenicity. Left kidney measures 10.2 cm. No hydronephrosis. No convincing evidence of calculus or mass. Normal perfusion. Bladder: No bladder wall thickening. Bilateral ureteral jets not visualized. Other: None. IMPRESSION: 1. Essentially normal renal ultrasound. No evidence of obstruction. Electronically signed by: Chava Broussard M.D. 08/15/2017 8:33 PM Dictated Date/Time: 08/15/2017 8:32 PM Disposition:discharge home. follow up appoints with Dr. Bell at [facility] on 08/19/17 at 8:45 AM have been made
[2017-08-17] MEDS ORDERED: LPR50X OR (11:30)
--- NOTE | 2017-08-17 11:33 | Discharge Instructions ---
Discharge Instructions Date of Service Aug 17, 2017. Admission Reason for Admission: Acute Kidney Injury Discharge Discharge Diagnosis / Problem: gastroenteritis, acut kidney injury, hypotension Discharge Goals Goal(s): Improve function Activity Recommendations Activity Limitations: resume your previous activity . Instructions / Follow-Up Instructions / Follow-Up Subjective: patient back at baseline health. denies further episodes of nausea/ vomiting/diarrhea/lightheadedness for which symptoms brought him to the hospital General Appearance: WD/WN, no apparent distress Head: normocephalic, atraumatic Eyes: normal inspection, PERRL, EOMI, sclerae normal ENT: normal ENT inspection, hearing grossly normal, pharynx normal Neck: supple, no adenopathy, thyroid normal, no JVD, trachea midline Respiratory/Chest: lungs clear no respiratory distress, no accessory muscle use Cardiovascular: regular rate, rhythm, no edema, no gallop, no JVD, normal peripheral pulses, I/ systolic murmur at base Abdomen/GI: normal bowel sounds, non tender, soft, no organomegaly, no pulsatile mass Extremities: normal inspection, no calf tenderness, normal capillary refill, no pedal edema, Neurologic, EOMI, no dysarthria, no motor/sensory deficits, alert, normal mood/ affect, Skin: normal color, warm/dry, no rash ACUTE KIDNEY INJURY: resolved Acute kidney injury probably due to volume depletion from vomiting and diarrhea. Since hospital admission, patient denies further symptoms of nausea, vomiting, diarrhea. creatinine after IV fluid trended down from 2.9 to 1.7 on 08/16/17. switched from IV fluids to oral intake and diet with subsequent creatinine lab on 08/17/17 1.3 which is comparable to creatinine baseline from outpatient labs of 1.33. Serum creatine 2.9, compared to baseline of 1.3. No obstruction per renal US. his home dose lisinopril-HCTZ was held during hospital stay but blood pressure of 130s systolic is within normal ranges can continue home dose lisinopril-HCTZ HYPOTENSION: resolved BP's in ED 93/53, 87/53. -his home dose lisinopril-HCTZ was held during hospital stay but blood pressure of 130s systolic is within normal ranges NAUSEA / VOMITING / DIARRHEA: resolved Probable viral gastroenteritis. CORONARY ARTERY DISEASE Status post [place], status post CABG. No anginal symptoms. Continue home dose aspirin On this admission his metoprolol of 50 mg BID at home was reduced to 25 mg BID with max heart rate 70 bpm, patient can continue 25 mg BID and follow up with his primary care doctor for further titration if needed CEREBROVASCULAR DISEASE CT head demonstrates old stroke, no new events. Continue aspirin and statin. HYPERTENSION BP's low in ED. Hold lisinopril and HCTZ. Reduced dose of metoprolol until hemodynamics improve. Follow and titrate Rx. DM TYPE 2 Well-controlled at home. Random blood sugar in ED 91. Held metformin during hospital stay and was placed on subcutaneous insulin Can restart metformin at home Studies: CHEST ONE VIEW PORTABLE CLINICAL HISTORY: hypotension COMPARISON STUDY: 02/10/2017 FINDINGS: The cardiac and mediastinal contours remain stable. There are postsurgical changes of a midline sternotomy. There is a thoracic scoliosis. There is no failure. There is no focal pulmonary consolidation. There are no pleural effusions. IMPRESSION: No active disease in the chest. Electronically signed by: Obdulio Ardon M.D. 08/15/2017 5:50 PM Dictated Date/Time: 08/15/2017 5:[address] HEAD WITHOUT CONTRAST (CT) FINDINGS: No intra or extra-axial mass lesions are visualized. There is no CT evidence of acute cortical infarction. There is no evidence of midline shift. There is no acute hemorrhage. No calvarial fractures are visualized. There are patchy white matter hypodensities likely on a small vessel basis. There is an old right occipital infarct. There is an old left basal ganglial lacunar infarct. There are old cortical infarctions within the left parietal lobe. There is no evidence of pathologic ventricular dilatation. There is no evidence of acute sinusitis IMPRESSION: Multiple old infarcts. No acute intracranial findings. Electronically signed by: Obdulio Ardon M.D. 08/15/2017 6:01 PM Dictated Date/Time: 08/15/2017 5:57 PM (RENAL)RETROPERITON COMP FINDINGS: Right kidney: Normal echogenicity. Right kidney measures 10.4 cm. No hydronephrosis. No convincing evidence of calculus or mass. Normal perfusion. Left kidney: Normal echogenicity. Left kidney measures 10.2 cm. No hydronephrosis. No convincing evidence of calculus or mass. Normal perfusion. Bladder: No bladder wall thickening. Bilateral ureteral jets not visualized. Other: None. IMPRESSION: 1. Essentially normal renal ultrasound. No evidence of obstruction. Electronically signed by: Chava Broussard M.D. 08/15/2017 8:33 PM Dictated Date/Time: 08/15/2017 8:32 PM Disposition:discharge home. follow up appoints with Dr. Bell at [facility] on 08/19/17 at 8:45 AM have been made Current Hospital Diet Patient's current hospital diet: Diabetes Type 2 Diet, AHA Diet (Heart Healthy) Discharge Diet Recommended Diet: AHA Diet (Heart Healthy) Pending Studies Studies pending at discharge: no Laboratory Results Hemoglobin A1c Test 08/16/17 05:13 Range/Units Estimated Average Glucose 134 mg/dl Hemoglobin A1c 6.3 H 4.5-5.6 % Medical Emergencies . Who to Call and When: Medical Emergencies: If at any time you feel your situation is an emergency, please call 911 immediately. . Non-Emergent Contact Non-Emergency issues call your: Primary Care Provider Call Non-Emergent contact if: you have any medication questions . . "Provider Documentation" section prepared by Michael Walton. . VTE Core Measure Inpt VTE Proph given/why not?: SCD's
--- NOTE | 2017-08-17 11:36 | Discharge Summary ---
Discharge Summary Date of Service Aug 17, 2017. Discharge Summary Admission Date: Aug 15, 2017 at 19:20 Discharge Date: Aug 17, 2017 Discharge Disposition: Home Principal Diagnosis: gastroenteritis, hypotension, acute kidney injury Procedures: renal ultrasound, chest X ray, head CT Medication Reconciliation New Medications: Metoprolol Tartrate (Metoprolol Tartrate) 50 Mg Tab 25 MG OR BID, #30 TAB Continued Medications: Aspirin (Aspirin Ec) 81 Mg Tab 81 MG PO HS Atorvastatin (Lipitor) 80 Mg Tab 80 MG PO QAM, TAB Clopidogrel (Plavix) 75 Mg Tab 75 MG PO QAM, TAB Gabapentin (Neurontin) 300 Mg Cap 300 MG PO TID, CAP Indomethacin (Indocin) 50 Mg Cap 50 MG PO TID PRN for gout attack take with food Isosorbide Mononitrate Ext Rel (Imdur Ext Rel) 30 Mg Ertab 30 MG PO QAM, TAB Lisinopril/Hctz (Prinzide 20-25MG) Tab 1 TAB PO QAM Metformin Hcl (Glucophage) 500 Mg Tab 500 MG PO BID, TAB Montelukast Sodium (Singulair) 10 Mg Tab 10 MG PO HS, TAB Nitroglycerin (Nitrostat) 0.4 Mg Tab 0.4 MG UT PRN PRN for chest pain Discontinued Medications: Metoprolol Tartrate (Lopressor) (Lopressor) 50 Mg Tab 50 MG PO BID Admission Information HPI (per Admitting provider): 71 YO male followed by Dr. Bell for Family Medicine. History of ischemic heart disease, cerebrovascular disease, hypertension, DM type 2, and other problems noted below. He was in his usual state of health until 2 nights prior to admission when he developed nausea, vomiting, diarrhea after eating supper. No hematemesis, melena, hematochezia. No abdominal pain. Also noted fever, chills, myalgias. Had multiple episodes of diarrhea that evening. Nausea and vomiting subsided by the next morning. Yesterday and today felt weak and lightheaded. Referred to ED for further evaluation. [place] somewhat better after receiving IV fluids in ED. . Physical Exam (per Admitting): General Appearance: WD/WN, no apparent distress Head: normocephalic, atraumatic Eyes: normal inspection, PERRL, EOMI, sclerae normal (conjunctivae pink) ENT: normal ENT inspection, hearing grossly normal, pharynx normal Neck: supple, no adenopathy, thyroid normal, no JVD, trachea midline Respiratory/Chest: lungs clear (to A&P), no respiratory distress, no accessory muscle use Cardiovascular: regular rate, rhythm, no edema, no gallop, no JVD, normal peripheral pulses, + systolic murmur (I/ systolic murmur at base) Abdomen/GI: normal bowel sounds, non tender, soft, no organomegaly, no pulsatile mass Extremities/Musculoskelatal: normal inspection, no calf tenderness, normal capillary refill, no pedal edema, + pertinent finding (no diabetic foot lesions) Neurologic/Psych: [place] master II-XII nml as tested (PERRL, EOMI, no facial palsy, no dysarthria), no motor/sensory deficits (motor strenght upper and lower extremities 5/5 bilat), alert, normal mood/affect, normal reflexes (patellar DTR 's 2/2, plantar reflexes downgoing), oriented x 3 Skin: normal color, warm/dry, no rash Lymphatic: no adenopathy (cervical) Hospital Course Subjective: patient back at baseline health. denies further episodes of nausea/ vomiting/diarrhea/lightheadedness for which symptoms brought him to the hospital General Appearance: WD/WN, no apparent distress Head: normocephalic, atraumatic Eyes: normal inspection, PERRL, EOMI, sclerae normal ENT: normal ENT inspection, hearing grossly normal, pharynx normal Neck: supple, no adenopathy, thyroid normal, no JVD, trachea midline Respiratory/Chest: lungs clear no respiratory distress, no accessory muscle use Cardiovascular: regular rate, rhythm, no edema, no gallop, no JVD, normal peripheral pulses, I/ systolic murmur at base Abdomen/GI: normal bowel sounds, non tender, soft, no organomegaly, no pulsatile mass Extremities: normal inspection, no calf tenderness, normal capillary refill, no pedal edema, Neurologic, EOMI, no dysarthria, no motor/sensory deficits, alert, normal mood/ affect, Skin: normal color, warm/dry, no rash ACUTE KIDNEY INJURY: resolved Acute kidney injury probably due to volume depletion from vomiting and diarrhea. Since hospital admission, patient denies further symptoms of nausea, vomiting, diarrhea. creatinine after IV fluid trended down from 2.9 to 1.7 on 08/16/17. switched from IV fluids to oral intake and diet with subsequent creatinine lab on 08/17/17 1.3 which is comparable to creatinine baseline from outpatient labs of 1.33. Serum creatine 2.9, compared to baseline of 1.3. No obstruction per renal US. his home dose lisinopril-HCTZ was held during hospital stay but blood pressure of 130s systolic is within normal ranges can continue home dose lisinopril-HCTZ HYPOTENSION: resolved BP's in ED 93/53, 87/53. -his home dose lisinopril-HCTZ was held during hospital stay but blood pressure of 130s systolic is within normal ranges NAUSEA / VOMITING / DIARRHEA: resolved Probable viral gastroenteritis. CORONARY ARTERY DISEASE Status post GA, status post CABG. No anginal symptoms. Continue home dose aspirin On this admission his metoprolol of 50 mg BID at home was reduced to 25 mg BID with max heart rate 70 bpm, patient can continue 25 mg BID and follow up with his primary care doctor for further titration if needed CEREBROVASCULAR DISEASE CT head demonstrates old stroke, no new events. Continue aspirin and statin. HYPERTENSION BP's low in ED. Hold lisinopril and HCTZ. Reduced dose of metoprolol until hemodynamics improve. Follow and titrate Rx. DM TYPE 2 Well-controlled at home. Random blood sugar in ED 91. Held metformin during hospital stay and was placed on subcutaneous insulin Can restart metformin at home Studies: CHEST ONE VIEW PORTABLE CLINICAL HISTORY: hypotension COMPARISON STUDY: 02/10/2017 FINDINGS: The cardiac and mediastinal contours remain stable. There are postsurgical changes of a midline sternotomy. There is a thoracic scoliosis. There is no failure. There is no focal pulmonary consolidation. There are no pleural effusions. IMPRESSION: No active disease in the chest. Electronically signed by: Obdulio Ardon M.D. 08/15/2017 5:50 PM Dictated Date/Time: 08/15/2017 5:[address] HEAD WITHOUT CONTRAST (CT) FINDINGS: No intra or extra-axial mass lesions are visualized. There is no CT evidence of acute cortical infarction. There is no evidence of midline shift. There is no acute hemorrhage. No calvarial fractures are visualized. There are patchy white matter hypodensities likely on a small vessel basis. There is an old right occipital infarct. There is an old left basal ganglial lacunar infarct. There are old cortical infarctions within the left parietal lobe. There is no evidence of pathologic ventricular dilatation. There is no evidence of acute sinusitis IMPRESSION: Multiple old infarcts. No acute intracranial findings. Electronically signed by: Obdulio Ardon M.D. 08/15/2017 6:01 PM Dictated Date/Time: 08/15/2017 5:57 PM (RENAL)RETROPERITON COMP FINDINGS: Right kidney: Normal echogenicity. Right kidney measures 10.4 cm. No hydronephrosis. No convincing evidence of calculus or mass. Normal perfusion. Left kidney: Normal echogenicity. Left kidney measures 10.2 cm. No hydronephrosis. No convincing evidence of calculus or mass. Normal perfusion. Bladder: No bladder wall thickening. Bilateral ureteral jets not visualized. Other: None. IMPRESSION: 1. Essentially normal renal ultrasound. No evidence of obstruction. Electronically signed by: Chava Broussard M.D. 08/15/2017 8:33 PM Dictated Date/Time: 08/15/2017 8:32 PM Disposition:discharge home. follow up appoints with Dr. Bell at [facility] on 08/19/17 at 8:45 AM have been made Total time spent on discharge = This includes examination of the patient, discharge planning, medication reconciliation, and communication with other providers. Discharge Instructions see above
== END 2017-08-17 12:56 | disposition home or self-care (01) | DRG 684 ==
LOC: C.EDB 16:34 → C.4E 19:20 → ENRESERV 19:26
PROVIDERS: ADMIT Hospitalist; ATTEND Hospitalist
DX: N17.9 Acute kidney failure, unspecified (principal); A08.4 Viral intestinal infection, unspecified; E86.0 Dehydration; I95.9 Hypotension, unspecified; I25.2 Old myocardial infarction; I25.10 Atherosclerotic heart disease of native coronary artery without angina pectoris; E11.9 Type 2 diabetes mellitus without complications; E78.5 Hyperlipidemia, unspecified; M10.9 Gout, unspecified; I10 Essential (primary) hypertension; Z79.02 Long term (current) use of antithrombotics/antiplatelets; Z79.82 Long term (current) use of aspirin; Z79.84 Long term (current) use of oral hypoglycemic drugs; Z79.899 Other long term (current) drug therapy; Z95.1 Presence of aortocoronary bypass graft; Z83.3 Family history of diabetes mellitus; Z87.891 Personal history of nicotine dependence; Z86.73 Personal history of transient ischemic attack (TIA), and cerebral infarction without residual deficits

== ENCOUNTER 2019-03-30 13:23 | Inpatient (IN) ==
--- OUTSIDE RECORDS SUMMARY | 2019-03-30 13:27 | External Medical Summary | Continuity of Care Document ---
:1945 Author Name Homar Douglas Address Unavailable Unavailable , Care Team Providers Name Role Phone Homar Douglas Unavailable [email or web address] PCP, UNKNOWN Unavailable Unavailable Problems Active medical history not documented Allergies and Adverse Reactions Allergy history not documented Medications Medications not documented Procedures Procedures not documented Immunizations Immunizations not documented Plan of Treatment Planned Observations Planned Goals not documented Results No Known Results Results not documented
[2019-03-30] MEDS ORDERED: ASPIRIN CHEW 324 MG PO STA (13:45)
[2019-03-30 14:11] LABS: Basophils # (auto) 0.03 K/uL (0-0.2); Basophils % (auto) 0.3 %; Eosinophils # (auto) 0.01 K/uL (0-0.5); Eosinophils % (auto) 0.1 %; Hematocrit (blood only) 33.6 % (42-52); Hemoglobin 11.1 g/dL (14.0-18.0); Immature Granulocytes # (auto) 0.04 K/uL (0.00-0.02); Immature Granulocytes % (auto) 0.4 %; Lymphocytes # (auto) 1.05 K/uL (1.2-3.4); Lymphocytes % (auto) 9.7 %; Mean Corpuscular Volume 89.4 fL (80-100); Mean Platelet Volume 11.4 fL (7.4-10.4); Monocytes % (auto) 4.6 %; Neutrophils # (auto) 9.23 K/uL (1.4-6.5); Neutrophils % (auto) 84.9 %; Platelet Count 197 K/uL (130-400); RDW Coefficient of Variation 15.3 % (11.5-14.5); RDW Standard Deviation 49.4 fL (36.4-46.3); Red Blood Count 3.76 M/uL (4.7-6.1); White Blood Count 10.86 K/uL (4.8-10.8)
[2019-03-30 14:24] LABS: Partial Thromboplastin Ratio 0.8; Partial Thromboplastin Time 20.4 Seconds (21.0-31.0); Prothrombin Time 10.4 Seconds (9.0-12.0)
[2019-03-30 14:27] LABS: BUN Creatinine Ratio 62.9 (10-20); Blood Urea Nitrogen 88 mg/dl (7-18); Calcium 8.8 mg/dl (8.5-10.1); Carbon Dioxide 19 mmol/L (21-32); Chloride 113 mmol/L (98-107); Creatinine Clr Calc Pharmacy 66.3 ml/min; Est GFR (African American) 58.7; Est GFR (Non-African American) 50.6; Glucose 130 mg/dl (70-99); Potassium 4.2 mmol/L (3.5-5.1); Sodium 142 mmol/L (136-145)
[2019-03-30 14:32] LABS: Troponin I < 0.015 ng/ml (0-0.045)
--- NOTE | 2019-03-30 14:32 | XRay Report ---
XR chest 2V routine CLINICAL HISTORY: Chest pain. COMPARISON STUDY: Chest radiograph August 15, 2017. FINDINGS: Postoperative findings within the cervical spine, median sternotomy wires and upper abdomin al surgical clips are noted. There is moderate dextroscoliosis of the lower thoracic spine. No pneumo thorax or pleural effusion is noted. No consolidation or evidence for pulmonary edema. The cardiomedi astinal silhouette is stable. IMPRESSION: No acute cardiopulmonary findings. No change in appearance of the chest. Electronically signed by: Dexter Ibarra M.D. 03/30/2019 2:31 PM
[2019-03-30] MEDS ORDERED: OPTIRAY 320 125ml IV PRN ×2 (15:50)
--- NOTE | 2019-03-30 16:13 | CT Scan Report ---
CT angio chest PE protocol CT DOSE: 742.65 mGy.cm HISTORY: 73 years-old Male with ro PE. Acute shortness of breath TECHNIQUE: Multiple CTA images of the chest were obtained after the intravenous administration of 120 ml Optiray 320. Coronal and sagittal MIPS were obtained from the axial data set and were submitted for review. All measurements were obtained according to NASCET criteria. A dose lowering technique w as utilized adhering to the principles of ALARA. COMPARISON: Chest radiographs of same day. FINDINGS: CTA: Heart is normal in size without pericardial effusion. Prior median sternotomy and CABG. Extensive zachary horace coronary arterial calcifications are noted. There is no thoracic aortic aneurysm or dissection. M oderate mixed plaque formation but the thoracic aortic arch and proximal great vessels appear patent. Tortuosity of the descending thoracic aorta. The pulmonary arterial tree is opacified to level of th e segmental branches. The subsegmental branches are not well visualized secondary to contrast bolus t iming. No focal filling defects identified to suggest pulmonary thromboembolic disease. CT CHEST: Subcentimeter bilateral thyroid nodules. There is no adenopathy by CT size criteria. No pneumothorax or pleural effusion. Mild biapical pleural-parenchymal scarring. There are no suspicious pulmonary no dules or masses identified. 3 mm solid nodule the right upper lobe, image 29 series 4 is indeterminat e. Mild bilateral bronchial wall thickening. 2 mm pleural-based solid nodule about the superior segme nt of the right lower lobe, image 26 series 4. No focal airspace consolidation typical for pneumonia. Central airways appear to be patent. Postoperative changes of the gastroesophageal junction with small hiatal hernia. There is mild wall t hickening noted throughout the esophagus. There is a focal area of soft tissue prominence about the r ight aspect of the esophagus at the level of T6 measuring 1.3 x 0.8 cm on image 219 series 4. No acut e process of the imaged upper abdomen. Soft tissues are unremarkable. Degenerative changes of the onel ulders and spine. Thoracolumbar sigmoidal scoliosis. Postoperative changes of the lower cervical spin e. IMPRESSION: 1. No acute aortic pathology or evidence of pulmonary thromboembolic disease. 2. Mild bilateral bronchial wall thickening suggests reactive airway disease or bronchitis. 3. No focal airspace consolidation typical for pneumonia. 4. Prior median sternotomy and CABG. 5. Mild wall thickening about the esophagus with focal soft tissue prominence of the esophagus at the level of T6 suggestive of esophagitis or mucosal mass lesion. This could be correlated with endoscop y if of further clinical concern. The above report was generated using voice recognition software. It may contain grammatical, syntax o r spelling errors. Electronically signed by: Archie Dennis M.D. 03/30/2019 4:12 PM
--- NOTE | 2019-03-30 16:42 | Emergency Department Note ---
Entered by Aleksandra Barakat acting as a scribe for Koko Jesus History of Present Illness General Chief complaint: Cardiac Assessment Stated complaint: REF BY DR Upton POSSIBLE HEART ATTACK Time Seen by Provider: 03/30/19 13:39 Source: patient and family History of Present Illness Provider complaint: chest pain Onset (ago): day(s) (yesterday afternoon) Location: chest Quality: + other (pain) Associated symptoms: + shortness of breath; no cough The patient is a 73 year old male who presents to the Emergency Department with complaints of chest pain since yesterday afternoon. Per family, the patient was also sweaty and had shortness of breath. His family states that the patient was unable to walk more than 10 steps today without having to stop and catch his breath. Per family, the patient also slept 12 hours last night. His family states that the patient has a history of diabetes, CAD, and hypertension. The patient denies having a cough. His family also states that the patient has a history of a double bypass and then had a heart attack after that. The patient denies having chest pain or shortness of breath currently. His family states that the patient was recently hit in the eye with a stone mowing grass but denies losing consciousness at this time and states that the rock was small. The patient denies recent travel. He states that he is on Plavix. He denies hormone use. Home Medications Home Medications Medication Instructions Recorded Confirmed Type isosorbide mononitrate 30 mg PO QAM #0 tab 08/12/14 03/30/19 History aspirin [Aspirin Low Dose] 81 mg PO DAILY #0 09/11/14 03/30/19 History clopidogrel 75 mg PO QAM #0 tab 11/18/14 03/30/19 History gabapentin 600 mg PO AMPM #0 cap 03/20/16 03/30/19 History montelukast 10 mg PO PM #0 tab 03/20/16 03/30/19 History metformin 1,000 mg PO BID #0 tab 02/10/17 03/30/19 History acetaminophen [Acetaminophen Extra 1,000 mg PO UD PRN #0 tab 08/15/17 03/30/19 History Strength] nitroglycerin 0.4 mg SUBLINGUAL Q5M PRN #0 08/15/17 03/30/19 History ascorbic acid (vitamin C) 500 mg PO HS 03/30/19 03/30/19 History cyanocobalamin (vitamin B-12) 500 mcg PO Q2D 03/30/19 03/30/19 History gabapentin 300 mg PO HS 03/30/19 03/30/19 History lisinopril 5 mg PO DAILY 03/30/19 03/30/19 History pyridoxine (vitamin B6) [Vitamin 100 mg PO DAILY 03/30/19 03/30/19 History B-6] rosuvastatin 40 mg PO HS 03/30/19 03/30/19 History tamsulosin 0.4 mg PO DAILY 03/30/19 03/30/19 History Allergies Allergy/AdvReac Type Severity Reaction Status Date / Time No Known Allergies Allergy Verified 03/30/19 14:33 Past Med/Surg History Medical History Diabetes (Chronic) GERD (gastroesophageal reflux disease) (Chronic) HTN (hypertension) (Chronic) Social History Feels Safe at Home: Yes Smoking Status: Former smoker Review of Systems See HPI for pertinent positives & negatives. and A total of 10 systems reviewed and were otherwise negative Physical Exam Vital Signs Vital Signs - 24 hr 03/30/19 13:34 03/30/19 13:46 03/30/19 13:51 Temperature 36.7 C Temperature Source Oral Sepsis Recent Fever Within 48 Hours No Sepsis New/Unexplained Change in Mental Status No Sepsis Action Taken by Nursing No Action Required Pulse Rate 109 H 101 H Pulse Rate from SpO2 Sensor Pulse Rhythm Regular Pulse Strength Normal Respiratory Rate 20 21 Respiratory Effort / Characteristics Non-Labored Spontaneous Respiratory Depth Normal Respiratory Pattern Regular Blood Pressure 135/80 112/86 Blood Pressure Mean 98 94 Blood Pressure Position Sitting Pulse Oximetry 99 99 Oxygen Delivery Method Room Air Room Air 03/30/19 13:57 03/30/19 14:00 03/30/19 14:10 Temperature Temperature Source Sepsis Recent Fever Within 48 Hours Sepsis New/Unexplained Change in Mental Status Sepsis Action Taken by Nursing Pulse Rate 104 H 102 H 129 H Pulse Rate from SpO2 Sensor 128 H Pulse Rhythm Pulse Strength Respiratory Rate 19 17 22 Respiratory Effort / Characteristics Respiratory Depth Respiratory Pattern Blood Pressure 128/105 H Blood Pressure Mean 112 Blood Pressure Position Pulse Oximetry 98 Oxygen Delivery Method Room Air 03/30/19 14:30 03/30/19 14:31 03/30/19 15:00 Temperature Temperature Source Sepsis Recent Fever Within 48 Hours Sepsis New/Unexplained Change in Mental Status Sepsis Action Taken by Nursing Pulse Rate 107 H 107 H 105 H Pulse Rate from SpO2 Sensor 107 H 107 H 104 H Pulse Rhythm Pulse Strength Respiratory Rate 20 19 21 Respiratory Effort / Characteristics Respiratory Depth Respiratory Pattern Blood Pressure 126/94 Blood Pressure Mean 104 Blood Pressure Position Pulse Oximetry 97 97 97 Oxygen Delivery Method Room Air Room Air Room Air 03/30/19 15:01 03/30/19 15:30 03/30/19 15:31 Temperature Temperature Source Sepsis Recent Fever Within 48 Hours Sepsis New/Unexplained Change in Mental Status Sepsis Action Taken by Nursing Pulse Rate 105 H 100 H 103 H Pulse Rate from SpO2 Sensor 105 H 99 H 102 H Pulse Rhythm Pulse Strength Respiratory Rate 19 21 29 H Respiratory Effort / Characteristics Respiratory Depth Respiratory Pattern Blood Pressure 133/88 118/86 Blood Pressure Mean 103 96 Blood Pressure Position Pulse Oximetry 98 97 96 Oxygen Delivery Method Room Air Room Air Room Air 03/30/19 15:32 Temperature Temperature Source Sepsis Recent Fever Within 48 Hours Sepsis New/Unexplained Change in Mental Status Sepsis Action Taken by Nursing Pulse Rate 101 H Pulse Rate from SpO2 Sensor 99 H Pulse Rhythm Pulse Strength Respiratory Rate 23 Respiratory Effort / Characteristics Respiratory Depth Respiratory Pattern Blood Pressure 118/86 Blood Pressure Mean 96 Blood Pressure Position Pulse Oximetry 97 Oxygen Delivery Method Room Air GENERAL: He is oriented to person, place, and time. He appears well-developed and well-nourished. He does not appear distressed. HENT: Exam performed. - Head: Normocephalic and atraumatic. - Right Ear: External ear normal. No mastoid tenderness. - Left Ear: External ear normal. No mastoid tenderness. - Mouth/Throat: The oropharynx is clear and moist. No trismus in the jaw. No dental abscesses or uvula swelling. No oropharyngeal exudate or tonsillar abscesses. EYES: Conjunctivae and EOM are normal. Pupils are equal, round, and reactive to light. Right eye exhibits no discharge. Left eye exhibits no discharge. No scleral icterus. NECK: Normal range of motion. Neck supple. No JVD present. No spinous process tenderness present. No carotid bruit present. No rigidity. No tracheal deviation and normal range of motion present. No Brudzinski's sign and no Kernig's sign noted. CV: Normal rate, regular rhythm, normal heart sounds and intact distal pulses. There is no peripheral edema. Palpable radial pulses bue. PULM/CHEST: Effort normal and breath sounds normal. No respiratory distress. No stridor. He has no wheezes. He has no rales. - Chest Wall: He exhibits no tenderness. ABD: The abdomen is soft. Bowel sounds are normal. He has no distension. No mass is present. There is no tenderness. There is no rebound, no guarding, no Welch's sign and no tenderness at McBurney's point. Rovsig negative. MUSC/SKEL: Normal range of motion. There is no peripheral edema, tenderness or deformity. LYMPH: No cervical adenopathy. NEURO: He is alert and oriented to person, place, and time. He has normal strength. No cranial nerve deficit or sensory deficit. Coordination and gait normal. GCS eye subscore is 4. GCS verbal subscore is 5. GCS motor subscore is 6. Cerebellar tests wnl. SKIN: Skin is warm and dry. He is not diaphoretic. PSYCH: He has a normal mood and affect. Behavior is normal. Judgment and thought content normal. Course 1342: The patient was evaluated in room A11A. A history and physical were performed. 1437: The patient's labs and imaging are within normal limits. The patient remains persistently tachycardic in the 100-115 range. We will obtain a POC D- Dimer. 1631: CTA of the chest negative for PE. Patient will be brought in for rule out ACS given his symptoms as well as new EKG changes. I discussed the patient's case with Pennie Means who will evaluate the patient for further management. She states to admit to Dr. Guzman I updated the patient who verbalized agreement and understanding of the treatment plan. Consultations Consultation #1: Pennie Means Time: 16:31 Administered Medications Ioversol (Optiray 320 125ml) 120 ml IV ONCE PRN PRN Reason: Interaction Checking Stop: 04/03/19 15:49 Last Admin: 03/30/19 15:52 Dose: 120 ml Documented by: [id number] Discontinued Medications Aspirin (Aspirin) 324 mg PO NOW STA Stop: 03/30/19 13:46 Last Admin: 03/30/19 14:11 Dose: 324 mg Documented by: [id number] Medical Decision Making Medical Records Attestation: I reviewed the patient's medical records. Home Medications Current Medication List: was personally reviewed by me Laboratory Data Attestation: I reviewed the patient's lab results. Result diagrams: 03/30/19 14:00 03/30/19 14:00 Lab Results 03/30/19 03/30/19 03/30/19 Range/Units 14:00 14:00 14:00 WBC 10.86 H (4.8-10.8) K/uL RBC 3.76 L (4.7-6.1) M/uL Hgb 11.1 L (14.0-18.0) g/dL Hct 33.6 L (42-52) % MCV 89.4 (80-100) fL MCH 29.5 (25-34) pg MCHC 33.0 (32-36) g/dL RDW Std Deviation 49.4 H (36.4-46.3) fL RDW Coeff of Leela 15.3 H (11.5-14.5) % Plt Count 197 (130-400) K/uL MPV 11.4 H (7.4-10.4) fL Immature Gran % (Auto) 0.4 % Neut % (Auto) 84.9 % Lymph % (Auto) 9.7 % [place] % (Auto) 4.6 % Eos % (Auto) 0.1 % Baso % (Auto) 0.3 % Immature Gran # (Auto) 0.04 H (0.00-0.02) K/uL Neut # (Auto) 9.23 H (1.4-6.5) K/uL Lymph # (Auto) 1.05 L (1.2-3.4) K/uL [place] # (Auto) 0.50 (0.11-0.59) K/uL Eos # (Auto) 0.01 (0-0.5) K/uL Baso # (Auto) 0.03 (0-0.2) K/uL PT 10.4 (9.0-12.0) Seconds INR 1.0 (0.9-1.1) APTT 20.4 L (21.0-31.0) Seconds PTT Ratio 0.8 POC D-Dimer (0-450) ng/mlFEU Sodium 142 (136-145) mmol/L Potassium 4.2 (3.5-5.1) mmol/L Chloride 113 H (98-107) mmol/L Carbon Dioxide 19 L (21-32) mmol/L Anion Gap 10.0 (3-11) BUN 88 H (7-18) mg/dl Creatinine 1.39 (0.6-1.4) mg/dl Est Cr Clr Drug Dosing 66.3 ml/min Est GFR ( Amer) 58.7 Est GFR (Non-Af Amer) 50.6 BUN/Creatinine Ratio 62.9 H (10-20) Glucose 130 H (70-99) mg/dl Calcium 8.8 (8.5-10.1) mg/dl Troponin I < 0.015 (0-0.045) ng/ml Lipase 148 (73-393) U/L 03/30/19 Range/Units 14:41 WBC (4.8-10.8) K/uL RBC (4.7-6.1) M/uL Hgb (14.0-18.0) g/dL Hct (42-52) % MCV (80-100) fL MCH (25-34) pg MCHC (32-36) g/dL RDW Std Deviation (36.4-46.3) fL RDW Coeff of Leela (11.5-14.5) % Plt Count (130-400) K/uL MPV (7.4-10.4) fL Immature Gran % (Auto) % Neut % (Auto) % Lymph % (Auto) % [place] % (Auto) % Eos % (Auto) % Baso % (Auto) % Immature Gran # (Auto) (0.00-0.02) K/uL Neut # (Auto) (1.4-6.5) K/uL Lymph # (Auto) (1.2-3.4) K/uL [place] # (Auto) (0.11-0.59) K/uL Eos # (Auto) (0-0.5) K/uL Baso # (Auto) (0-0.2) K/uL PT (9.0-12.0) Seconds INR (0.9-1.1) APTT (21.0-31.0) Seconds PTT Ratio POC D-Dimer > 450 H* (0-450) ng/mlFEU Sodium (136-145) mmol/L Potassium (3.5-5.1) mmol/L Chloride (98-107) mmol/L Carbon Dioxide (21-32) mmol/L Anion Gap (3-11) BUN (7-18) mg/dl Creatinine (0.6-1.4) mg/dl Est Cr Clr Drug Dosing ml/min Est GFR ( Amer) Est GFR (Non-Af Amer) BUN/Creatinine Ratio (10-20) Glucose (70-99) mg/dl Calcium (8.5-10.1) mg/dl Troponin I (0-0.045) ng/ml Lipase (73-393) U/L Imaging Data Radiologist's Impression: Radiology results as stated below per my review and the radiologist's interpretation: XR chest 2V routine CLINICAL HISTORY: Chest pain. COMPARISON STUDY: Chest radiograph August 15, 2017. FINDINGS: Postoperative findings within the cervical spine, median sternotomy wires and upper abdominal surgical clips are noted. There is moderate dextroscoliosis of the lower thoracic spine. No pneumothorax or pleural effusion is noted. No consolidation or evidence for pulmonary edema. The cardiomediastinal silhouette is stable. IMPRESSION: No acute cardiopulmonary findings. No change in appearance of the chest. Electronically signed by: Dexter Ibarra M.D. 03/30/2019 2:[address] angio chest PE protocol CT DOSE: 742.65 mGy.cm HISTORY: 73 years-old Male with ro PE. Acute shortness of breath TECHNIQUE: Multiple CTA images of the chest were obtained after the intravenous administration of 120 ml Optiray 320. Coronal and sagittal MIPS were obtained from the axial data set and were submitted for review. All measurements were obtained according to NASCET criteria. A dose lowering technique was utilized adhering to the principles of ALARA. COMPARISON: Chest radiographs of same day. FINDINGS: CTA: Heart is normal in size without pericardial effusion. Prior median sternotomy and CABG. Extensive [place] coronary arterial calcifications are noted. There is no thoracic aortic aneurysm or dissection. Moderate mixed plaque formation but the thoracic aortic arch and proximal great vessels appear patent. Tortuosity of the descending thoracic aorta. The pulmonary arterial tree is opacified to level of the segmental branches. The subsegmental branches are not well visualized secondary to contrast bolus timing. No focal filling defects identified to sug gest pulmonary thromboembolic disease. CT CHEST: Subcentimeter bilateral thyroid nodules. There is no adenopathy by CT size criteria. No pneumothorax or pleural effusion. Mild biapical pleural-parenchymal scarring. There are no suspicious pulmonary nodules or masses identified. 3 mm solid nodule the right upper lobe, image 29 series 4 is indeterminate. Mild bilateral bronchial wall thickening. 2 mm pleural-based solid nodule about the superior segment of the right lower lobe, image 26 series 4. No focal airspace consolidation typical for pneumonia. Central airways appear to be patent. Postoperative changes of the gastroesophageal junction with small hiatal hernia. There is mild wall thickening noted throughout the esophagus. There is a focal area of soft tissue prominence about the right aspect of the esophagus at the level of T6 measuring 1.3 x 0.8 cm on image 219 series 4. No acute process of the imaged upper abdomen. Soft tissues are unremarkable. Degenerative changes of the shoulders and spine. Thoracolumbar sigmoidal scoliosis. Postoperative changes of the lower cervical spine. IMPRESSION: 1. No acute aortic pathology or evidence of pulmonary thromboembolic disease. 2. Mild bilateral bronchial wall thickening suggests reactive airway disease or bronchitis. 3. No focal airspace consolidation typical for pneumonia. 4. Prior median sternotomy and CABG. 5. Mild wall thickening about the esophagus with focal soft tissue prominence of the esophagus at the level of T6 suggestive of esophagitis or mucosal mass lesion. This could be correlated with endoscopy if of further clinical concern. The above report was generated using voice recognition software. It may contain grammatical, syntax or spelling errors. Electronically signed by: Archie Dennis M.D. 03/30/2019 4:12 PM ECG Data Attestation: I personally reviewed and interpreted this ECG as follows: Indication: chest pain Rate (beats per minute): 106 Rhythm: sinus tachycardia Findings: + other (FL, QRS, QTC within normal limits), + ST depression (mild in leads V2, V3) and + T-wave inversion (in lead I, II, aVL, V6); no ST elevation Comparison ECG Date: from (July 2017) Change: the following changes noted (TWI are new) Additional Comments: repeat ECG done at 1402: sinus tachycardia, 102, FL, QRS, QTC within normal limits. No ST elevation. No changes from the ECG done at 1343. Blood Pressure Blood Pressure Findings: Normal blood pressure MDM Narrative 1342: The patient was evaluated in room A11A. A history and physical were performed. 1437: The patient's labs and imaging are within normal limits. The patient remains persistently tachycardic in the 100-115 range. We will obtain a POC D- Dimer. 1631: CTA of the chest negative for PE. Patient will be brought in for rule out ACS given his symptoms as well as new EKG changes. I discussed the patient's case with Pennie Means who will evaluate the patient for further management. She states to admit to Dr. Guzman I updated the patient who verbalized agreement and understanding of the treatment plan. Impression & Plan Chest pain Discharge Plan Visit Data Chief Complaint: Cardiac Assessment Stated Complaint: REF BY - POSSIBLE HEART ATTACK ED Provider: Koko Jesus Discharge Problem: Chest pain Patient Disposition: Being Evaluated by Hospitalist Forms Stand Alone Forms: My [facility] Prescriptions Prescriptions: No Action isosorbide mononitrate 30 mg Tablet Extended Release 24 Hr 30 mg PO QAM Qty: 0 RF: 0 aspirin [Aspirin Low Dose] 81 mg Tablet,Delayed Release (Dr/Ec) 81 mg PO DAILY Qty: 0 RF: 0 clopidogrel 75 mg Tablet 75 mg PO QAM Qty: 0 RF: 0 gabapentin 300 mg Capsule 600 mg PO AMPM Qty: 0 RF: 0 montelukast 10 mg Tablet 10 mg PO PM Qty: 0 RF: 0 metformin 500 mg Tablet 1,000 mg PO BID Qty: 0 RF: 0 acetaminophen [Acetaminophen Extra Strength] 500 mg Tablet 1,000 mg PO UD PRN (Reason: Pain) Qty: 0 RF: 0 nitroglycerin 0.4 mg Tablet, Sublingual 0.4 mg sublingual Q5M PRN (Reason: Chest Pain) Qty: 0 RF: 0 cyanocobalamin (vitamin B-12) 500 mcg Tablet 500 mcg PO Q2D RF: 0 ascorbic acid (vitamin C) 500 mg Tablet 500 mg PO HS RF: 0 tamsulosin 0.4 mg Capsule 0.4 mg PO DAILY RF: 0 gabapentin 300 mg Capsule 300 mg PO HS RF: 0 lisinopril 5 mg Tablet 5 mg PO DAILY RF: 0 pyridoxine (vitamin B6) [Vitamin B-6] 100 mg Tablet 100 mg PO DAILY RF: 0 rosuvastatin 40 mg Tablet 40 mg PO HS RF: 0 Referrals Referrals: Chava Bell MD [Primary Care Provider] - Discharge Problem: Chest pain Qualifiers: Chest pain type: unspecified Qualified Code(s): R07.9 - Chest pain, unspecified The scribe's documentation has been prepared under my direction and personally reviewed by me in its entirety. I confirm that the note above accurately reflects all work, treatment, procedures, and medical decision making performed by me.
--- NOTE | 2019-03-30 17:53 | History & Physical Report ---
Date of Service March 30, 2019 Assessment & Plan (1) Chest pain: (2) Coronary artery disease: -Admit to telemetry -Patient presenting with reports of shortness of breath and chest heaviness very similar to his anginal equivalent in the past -EKG demonstrates new T wave inversions in leads I, II, aVL -Initial troponin negative, will continue to trend -Case was discussed with Dr. Gann -Low threshold for initiating IV heparin however need to discuss with ophthalmology given patient's recent eye injury -Given tachycardia, will resume metoprolol 12.5 mg twice daily (this was discontinued by cardiology about 1 year ago secondary to bradycardia and hypotension) -Continue aspirin, Plavix, statin, nitrate, ACEi (3) Diabetes mellitus, type 2: -Hgb A1c 6.1 02/2019 -Hold oral agents and utilize NovoLog per protocol while hospitalized (4) Hypertension: -BP controlled, continue isosorbide and lisinopril, adding metoprolol as above (5) CVA (cerebral vascular accident): (6) TIA (transient ischemic attack): -Continue aspirin, Plavix, statin (7) DVT prophylaxis: -SCDs for now until discussed with ophthalmology History of Present Illness Chief Complaint: Shortness of breath Primary Care Provider: Chava Bell MD 73-year-old male who presents the ED with shortness of breath. Patient reports his symptoms began yesterday. Patient reports feeling short of breath very minimal exertion with associated chest heaviness. He is also been having episodes of diaphoresis. He reports some nausea with diarrhea yesterday. 5 days ago, patient reports he was struck in the eye with a piece of debris while mowing grass and as per his eye doctor, he has been on minimal activity. He reports his symptoms are very similar as when he has had his previous MIs in the past. Patient was seen at his PCPs office today and was noted to be tachycardic with EKG changes. He was sent to the ED for further evaluation. No orthopnea, however patient reports he was instructed to not lie flat as per his eye doctor. He denies lower extremity edema. Patient denies lightheadedness, dizziness, syncopal events. No other recent illnesses, fevers, chills. He denies abdominal pain and vomiting. He denies any urinary symptoms. In the ED, EKG demonstrates new T wave inversions in leads I, II, aVL. Initial troponin is negative. Patient is hemodynamically stable. He was given a full dose aspirin. CTA chest is negative for PE. Allergies Allergy/AdvReac Type Severity Reaction Status Date / Time No Known Allergies Allergy Verified 03/30/19 14:33 Home Medications Home Medications Medication Instructions Recorded Confirmed Type isosorbide mononitrate 30 mg PO QAM #0 tab 08/12/14 03/30/19 History aspirin [Aspirin Low Dose] 81 mg PO DAILY #0 09/11/14 03/30/19 History clopidogrel 75 mg PO QAM #0 tab 11/18/14 03/30/19 History gabapentin 600 mg PO TID #0 cap 03/20/16 03/30/19 History montelukast 10 mg PO PM #0 tab 03/20/16 03/30/19 History metformin 500 mg PO BID #0 tab 02/10/17 03/30/19 History acetaminophen [Acetaminophen Extra 1,000 mg PO UD PRN #0 tab 08/15/17 03/30/19 History Strength] nitroglycerin 0.4 mg SUBLINGUAL Q5M PRN #0 08/15/17 03/30/19 History ascorbic acid (vitamin C) 500 mg PO HS 03/30/19 03/30/19 History cyanocobalamin (vitamin B-12) 500 mcg PO SUTUTHSA 03/30/19 03/30/19 History lisinopril 5 mg PO DAILY 03/30/19 03/30/19 History pyridoxine (vitamin B6) [Vitamin 100 mg PO MOWEFR 03/30/19 03/30/19 History B-6] rosuvastatin 40 mg PO HS 03/30/19 03/30/19 History tamsulosin 0.4 mg PO DAILY 03/30/19 03/30/19 History Past Med/Surg History Medical History Paroxysmal A-fib (Chronic) TIA (transient ischemic attack) (Chronic) CVA (cerebral vascular accident) (Chronic) Diabetes mellitus, type 2 (Chronic) Hypertension (Chronic) Dyslipidemia (Chronic) Gout (Chronic) GERD (gastroesophageal reflux disease) (Chronic) Diabetes (Chronic) GERD (gastroesophageal reflux disease) (Chronic) HTN (hypertension) (Chronic) Surgical History S/P CABG x 2 (Chronic) S/P repair of paraesophageal hernia (Chronic) History of Amie fundoplication (Chronic) H/O umbilical hernia repair (Chronic) x2 Status post cataract extraction (Chronic) Status post tonsillectomy (Chronic) Family History Mother Stroke Social History Preferred Language: Italian Communication Ability: Effective Car Dumper Required: No Beliefs That Will Affect Care: None Current Living Situation: Spouse Other Information That Helps Us Care for You: No Feels Safe at Home: Yes Safety Concerns: Feels Safe At This Time Smoking Status: Former smoker Do You Dip or Chew Tobacco: No Smoking End Date: 1988 Hx Alcohol Use: Yes Hx Substance Use: No Review of Systems Review of Systems: ROS per HPI, all other systems reviewed and negative Physical Exam Constitutional: WD/WN, vitals as above Eyes: PERRL, conjunctivae normal, anicteric sclerae ENMT: external ear and nose normal, oropharynx normal Respiratory: normal respiratory effort, lungs clear to auscultation Cardiovascular: Rate/Rhythm: regular rhythm and + tachycardic Vessels: normal peripheral pulses Extremities: no edema Gastrointestinal (Abdomen): normal bowel sounds, soft, nontender, no hepatosplenomegaly Musculoskeletal: no cyanosis or clubbing, extremities motor strength 5/5 Skin: no rashes, warm and dry Neurologic: PERRL, EOMI, accommodation nl, no face palsy, no dysarthria Psychiatric: A+Ox3, euthymic affect Results & Data Vital Signs (Past 12 Hours) Vital Signs Temp Pulse Resp BP Pulse Ox 03/30/19 15:32 101 H 23 118/86 97 03/30/19 15:31 103 H 29 H 118/86 96 03/30/19 15:30 100 H 21 97 03/30/19 15:01 105 H 19 133/88 98 03/30/19 15:00 105 H 21 97 03/30/19 14:31 107 H 19 126/94 97 03/30/19 14:30 107 H 20 97 03/30/19 14:10 129 H 22 128/105 H 98 03/30/19 14:00 102 H 17 03/30/19 13:57 104 H 19 03/30/19 13:51 99 03/30/19 13:46 101 H 21 112/86 03/30/19 13:34 36.7 C 109 H 20 135/80 99 Laboratory Results Laboratory Last Values WBC 10.86 K/uL (4.8-10.8) H 03/30/19 14:00 RBC 3.76 M/uL (4.7-6.1) L 03/30/19 14:00 Hgb 11.1 g/dL (14.0-18.0) L 03/30/19 14:00 Hct 33.6 % (42-52) L 03/30/19 14:00 MCV 89.4 fL (80-100) 03/30/19 14:00 MCH 29.5 pg (25-34) 03/30/19 14:00 MCHC 33.0 g/dL (32-36) 03/30/19 14:00 RDW Std Deviation 49.4 fL (36.4-46.3) H 03/30/19 14:00 RDW Coeff of Leela 15.3 % (11.5-14.5) H 03/30/19 14:00 Plt Count 197 K/uL (130-400) 03/30/19 14:00 MPV 11.4 fL (7.4-10.4) H 03/30/19 14:00 Immature Gran % (Auto) 0.4 % 03/30/19 14:00 Neut % (Auto) 84.9 % 03/30/19 14:00 Lymph % (Auto) 9.7 % 03/30/19 14:00 Garrett % (Auto) 4.6 % 03/30/19 14:00 Eos % (Auto) 0.1 % 03/30/19 14:00 Baso % (Auto) 0.3 % 03/30/19 14:00 Immature Gran # (Auto) 0.04 K/uL (0.00-0.02) H 03/30/19 14:00 Neut # (Auto) 9.23 K/uL (1.4-6.5) H 03/30/19 14:00 Lymph # (Auto) 1.05 K/uL (1.2-3.4) L 03/30/19 14:00 Garrett # (Auto) 0.50 K/uL (0.11-0.59) 03/30/19 14:00 Eos # (Auto) 0.01 K/uL (0-0.5) 03/30/19 14:00 Baso # (Auto) 0.03 K/uL (0-0.2) 03/30/19 14:00 PT 10.4 Seconds (9.0-12.0) 03/30/19 14:00 INR 1.0 (0.9-1.1) 03/30/19 14:00 APTT 20.4 Seconds (21.0-31.0) L 03/30/19 14:00 PTT Ratio 0.8 03/30/19 14:00 POC D-Dimer > 450 ng/mlFEU (0-450) H* 03/30/19 14:41 Sodium 142 mmol/L (136-145) 03/30/19 14:00 Potassium 4.2 mmol/L (3.5-5.1) 03/30/19 14:00 Chloride 113 mmol/L (98-107) H 03/30/19 14:00 Carbon Dioxide 19 mmol/L (21-32) L 03/30/19 14:00 Anion Gap 10.0 (3-11) 03/30/19 14:00 BUN 88 mg/dl (7-18) H 03/30/19 14:00 Creatinine 1.39 mg/dl (0.6-1.4) 03/30/19 14:00 Est Cr Clr Drug Dosing 66.3 ml/min 03/30/19 14:00 Est GFR ( Amer) 58.7 03/30/19 14:00 Est GFR (Non-Af Amer) 50.6 03/30/19 14:00 BUN/Creatinine Ratio 62.9 (10-20) H 03/30/19 14:00 Glucose 130 mg/dl (70-99) H 03/30/19 14:00 Calcium 8.8 mg/dl (8.5-10.1) 03/30/19 14:00 Troponin I < 0.015 ng/ml (0-0.045) 03/30/19 14:00 Lipase 148 U/L (73-393) 03/30/19 14:00 Diagnostic Findings CXR IMPRESSION: No acute cardiopulmonary findings. No change in appearance of the chest. CTA CHEST IMPRESSION: 1. No acute aortic pathology or evidence of pulmonary thromboembolic disease. 2. Mild bilateral bronchial wall thickening suggests reactive airway disease or bronchitis. 3. No focal airspace consolidation typical for pneumonia. 4. Prior median sternotomy and CABG. 5. Mild wall thickening about the esophagus with focal soft tissue prominence of the esophagus at the level of T6 suggestive of esophagitis or mucosal mass lesion. This could be correlated with endoscopy if of further clinical concern. Code Status & VTE Plan VTE Prophylaxis Plan VTE Prophylaxis will be ordered: Yes Supervising Physician Co-Signing Physician Notes Pt was seen and examined. Agreed with Pennie MAGAÑA exam, assessment and villalba. 73-year-old male with PMH of CAD, TIA, P-Afib, DM type 2 was sent from PCP office to the ER for chest heaviness and EKG changed. Pt said that he was at his PCP office this morning for SOB associated with chest heaviness and diaphoresis. His EKG demonstrates new T wave inversions in leads I, II, aVL. Troponin x2 sets negative. Case discussed with Cardiology. We will hold on heparin drip for now due to recent eye injury, but if troponin increases, will start on heparin dip. (Pt understood the risk and benefit if we have to start on heparin drip). Will monitor 3rd set of troponin. Continue aspirin, beta bill and statin. Will keep NPO after might for possible cardiac cath in am. Continue monitor closely in tele. MD Ricardo
[2019-03-30] MEDS ORDERED: GLUCAGON FOR INJ 1 MG VIAL SQ PRN (18:21)
[2019-03-30] MEDS ORDERED: DEXTROSE 50% 50 ML SYRINGE IV PRN (18:21)
[2019-03-30] MEDS ORDERED: GLUCOSE 40% GEL 15 GM TUBE PO PRN (18:21)
[2019-03-30] MEDS ORDERED: ENOXAPARIN INJ 40 MG/0.4 ML SYR SQ SCH (18:21)
[2019-03-30] MEDS ORDERED: GLUCOSE 10 TABS/TUBE PO PRN (18:21)
[2019-03-30] MEDS ORDERED: NITROGLYCERIN SL 0.4 MG/TAB TAB SL PRN (18:21)
[2019-03-30] MEDS ORDERED: CARBOHYDRATES FOR HYPOGLYCEMIA PO PRN (18:21)
[2019-03-30] MEDS: INSULIN ASPART 100 UNITS/ML 3 ML PEN SC SCH (20:26)
[2019-03-30] MEDS: ROSUVASTATIN CALCIUM 20 MG TAB PO SCH (21:03)
[2019-03-30] MEDS: GABAPENTIN 600 MG TAB PO SCH (21:04)
[2019-03-30] MEDS: METOPROLOL TARTRATE 25 MG TAB PO SCH (21:04)
[2019-03-30] MEDS: ASCORBIC ACID 500 MG TAB PO SCH (21:04)
[2019-03-30] MEDS: MONTELUKAST SODIUM 10 MG TABLET PO SCH (21:04)
[2019-03-31 05:34] LABS: Hemoglobin 10.5 g/dL (14.0-18.0); Mean Corpuscular Hgb Conc 33.9 g/dL (32-36); Mean Corpuscular Volume 87.6 fL (80-100); Platelet Count 185 K/uL (130-400); RDW Coefficient of Variation 15.1 % (11.5-14.5); Red Blood Count 3.54 M/uL (4.7-6.1); White Blood Count 7.42 K/uL (4.8-10.8)
[2019-03-31 05:51] LABS: BUN Creatinine Ratio 49.2 (10-20); Blood Urea Nitrogen 69 mg/dl (7-18); Calcium 8.8 mg/dl (8.5-10.1); Carbon Dioxide 26 mmol/L (21-32); Chloride 113 mmol/L (98-107); Creatinine Clr Calc Pharmacy 65.2 ml/min; Est GFR (African American) 57.7; Est GFR (Non-African American) 49.8; Glucose 114 mg/dl (70-99); Potassium 3.9 mmol/L (3.5-5.1); Sodium 142 mmol/L (136-145)
[2019-03-31 05:56] LABS: Troponin I < 0.015 ng/ml (0-0.045)
[2019-03-31] MEDS: INSULIN ASPART 100 UNITS/ML 3 ML PEN SC SCH ×4 (08:04→20:39)
[2019-03-31] MEDS: METOPROLOL TARTRATE 25 MG TAB PO SCH ×2 (08:09→14:14)
[2019-03-31] MEDS: CLOPIDOGREL BISULFATE 75 MG TAB PO SCH (08:10)
[2019-03-31] MEDS: GABAPENTIN 600 MG TAB PO SCH ×3 (08:10→20:41)
[2019-03-31] MEDS: ASPIRIN 81 MG ECTAB PO SCH (08:11)
[2019-03-31] MEDS: TAMSULOSIN HCL 0.4 MG CAP PO SCH (08:12)
[2019-03-31] MEDS: CYANOCOBALAMIN 500 MCG TABLET (VITAMIN B-12) PO SCH (08:12)
[2019-03-31] MEDS ORDERED: LISINOPRIL 5 MG TAB PO SCH (09:00)
[2019-03-31] MEDS ORDERED: ISOSORBIDE MONO EXTENDED REL 30 MG TABCR PO SCH (09:00)
[2019-03-31] MEDS ORDERED: PERFLUTREN LIPID MICROSPHERE (DEFINITY) IV ONE (10:23)
[2019-03-31] MEDS ORDERED: fentaNYL citrate 100 MCG/2 ML VIAL ONE (10:40)
[2019-03-31] MEDS ORDERED: NiCARDipine HCL INJ 2.5 MG/ML 10 ML AMP ONE (10:40)
[2019-03-31] MEDS ORDERED: NITROGLYCERIN/D5W 100MCG/ML 20ML SYR ONE (10:40)
[2019-03-31] MEDS ORDERED: MIDAZOLAM HCL 1 MG/ML 2ML VIAL ONE (10:40)
[2019-03-31] MEDS ORDERED: HEPARIN (PORCINE) 1000 UNIT/ML 10 ML (CATH LAB USE ONLY) ONE ×2 (10:40→11:39)
--- NOTE | 2019-03-31 11:05 | Cardiology Consultation ---
Date of Consultation March 31, 2019 Assessment & Plan (1) Unstable angina pectoris: I seen the patient earlier this morning. At that time at approximately 9 AM. He was asymptomatic. He was tolerating dual antiplatelet therapy, and admitting team had discussed with his recent eye surgery with ophthalmology last evening. It was recommended that he would be a candidate for anticoagulation if it was felt to be lifesaving. The decision has been made therefore to remain off of unfractionated heparin last evening as he did not have any significant elevation in his cardiac enzymes and his symptoms had improved, to reduce potential risk of bleeding and reduce risk of his site. The tentative plan was for him to have diagnostic cardiac catheterization later today. Meantime, the patient was transferred from the telemetry unit to the cardiac pulmonary lab for an echocardiogram. After completion of the echocardiogram while he was sitting in a wheelchair waiting for transfer back to the telemetry unit he was observed to have a transient syncopal episode. He was noted to be heavily diaphoretic upon awakening. A code purple was called to assess the patient independently. His systolic blood pressure was 120 mmHg, and his random fingerstick glucose was 150. He had been off of the monitoring and evaluation advisor at the time of the event, but he was placed back on the monitoring and evaluation advisor and he was noted to be in sinus rhythm in the range of 60 bpm. I reviewed his echo images revealing findings of previous circumflex territory scar of LV systolic dysfunction. My concern is that the patient is having unstable angina due to progression of his coronary disease perhaps in the LAD territory or perhaps more likely the right coronary artery territory which would explain his intermittent vague symptoms of feeling generalized illness, diaphoresis, exertional shortness of breath, and syncope. He may have ischemia affecting his conduction system. Regimens were made for urgent cardiac catheterization and he was transferred from [facility] directly to the cardiac catheterization laboratory where procedures being performed as this report is being completed. I discussed these new developments with the patient's spouse, and I accompanied her to the cardiac catheterization waiting room. The patient is not found to have a coronary artery culprit, there are potential differential to consider his arrhythmia especially given his past scar. The patient had an incidental finding on his CT of the chest of mild wall thickening about the esophagus with focal soft tissue prominence in the esophagus at the level of T6 suggestive of esophagitis possible mass lesion. This appears to be an incidental finding do not think it relates to his presenting symptoms. Further assessment will need to be completed after his cardiac up is completed. The patient was on aspirin, clopidogrel, lisinopril, metoprolol and rosuvastatin this morning occasions have been continued. Further recommendations be forthcoming after cardiac catheterization is completed. History of Present Illness Attending Physician: Michael Aguilar DO History of Present Illness Tulio Becerra is a 73 year old male seen in cardiology consultation per the request of GÓMEZ Chu of the [facility] service for symptoms of unstable angina EKG. The patient was in his normal state of health until 5 days ago when he sustained an injury to his right eye from debris that escaped from a lawnmower. He has been followed closely by Dr. Medina of ophthalmology due to concerns of increased intraocular pressure that of trend toward improvement. The patient had been off of his aspirin for 2 days on and Saturday, but continued clopidogrel without interruption. Today is Saturday and he has been back on the aspirin since Saturday. The patient was accompanied at the bedside by his spouse when I had first assessment this morning. She helped with the history as he does have a known mild cognitive impairment dating back to a prior stroke. 2 days ago on Saturday the patient did not quite feel like himself. He describes feeling generalized illness with episodes of heavy perspiration and exertional shortness of breath on and off again throughout the day. Yesterday, Saturday, he was seen in follow-up by ophthalmology and had recurrence of the symptoms including significant heavy perspiration consistent with diaphoresis vague abdominal discomfort and exertional shortness of breath. This prompted an acute visit with his primary care provider at which time an EKG revealed new lateral ST segment depression compared to his prior performed March 2018. The patient was feeling improved at the time he arrived in the emergency room. Initial EKG performed 03/30/2019 at 1343 revealed sinus tachycardia at 106 bpm with 0.[address] segment depression noted in the lateral precordial leads, high lateral leads I and aVL as well as lead II. These repolarization changes persisted on repeat EKG yesterday at 1402. The patient was admitted to the telemetry unit overnight last night and serial troponin levels were within normal limits. EKG performed this morning revealed improvement in the previously noted inferior repolarization changes with mild residual nonspecific T wave changes noted in the lateral precordial leads. When I had interviewed conversant this morning he was asymptomatic. His burning symptoms of diaphoresis and shortness of breath had resolved. He noted a mild visual disturbance in the right eye which has been trending toward improvement since his injury several days ago. Past Cardiac / Vascular History: The patient's coronary heart disease was initially diagnosed in the year 1999 when a stress test was performed for symptoms of vague fatigue. He was found to have two-vessel coronary heart disease and underwent CABG x2 at [facility] at that time with FOLEY to LAD and saphenous vein graft to the circumflex coronary artery. The right coronary artery was free of significantly obstructive disease therefore was managed medically without revascularization. In 2009 he presented with acute lateral ST segment elevation myocardial infarction. He underwent urgent cardiac catheterization at [facility] with findings of occlusion of the saphenous vein graft to the circumflex as well as the [place] circumflex. This was not amenable to revascularization and he was managed medically. At that time a chronic occlusion of the LAD was noted with patent FOLEY to LAD graft good distal flow. The [place] right coronary artery had mild obstructive disease was managed medically. An echocardiogram performed at the [facility] in July 2014 revealed low normal LVEF in the range of 50 to 55% with circumflex territory scar/hypokinesis to akinesis normal wall motion the remaining myocardial segments. Past history of stroke and therefore he is on dual antiplatelet therapy on a chronic basis with aspirin and clopidogrel in addition to his coronary heart disease. History is otherwise notable for type 2 diabetes mellitus, hypertension, dyslipidemia. Allergies Allergy/AdvReac Type Severity Reaction Status Date / Time No Known Allergies Allergy Verified 03/30/19 14:33 Home Medications Home Medications Medication Instructions Recorded Confirmed Type isosorbide mononitrate 30 mg PO QAM #0 tab 08/12/14 03/30/19 History aspirin [Aspirin Low Dose] 81 mg PO DAILY #0 09/11/14 03/30/19 History clopidogrel 75 mg PO QAM #0 tab 11/18/14 03/30/19 History gabapentin 600 mg PO TID #0 cap 03/20/16 03/30/19 History montelukast 10 mg PO PM #0 tab 03/20/16 03/30/19 History metformin 500 mg PO BID #0 tab 02/10/17 03/30/19 History acetaminophen [Acetaminophen Extra 1,000 mg PO UD PRN #0 tab 08/15/17 03/30/19 History Strength] nitroglycerin 0.4 mg SUBLINGUAL Q5M PRN #0 08/15/17 03/30/19 History ascorbic acid (vitamin C) 500 mg PO HS 03/30/19 03/30/19 History cyanocobalamin (vitamin B-12) 500 mcg PO SUTUTHSA 03/30/19 03/30/19 History lisinopril 5 mg PO DAILY 03/30/19 03/30/19 History pyridoxine (vitamin B6) [Vitamin 100 mg PO MOWEFR 03/30/19 03/30/19 History B-6] rosuvastatin 40 mg PO HS 03/30/19 03/30/19 History tamsulosin 0.4 mg PO DAILY 03/30/19 03/30/19 History Patient History Medical History Paroxysmal A-fib (Chronic) TIA (transient ischemic attack) (Chronic) CVA (cerebral vascular accident) (Chronic) Diabetes mellitus, type 2 (Chronic) Hypertension (Chronic) Dyslipidemia (Chronic) Gout (Chronic) GERD (gastroesophageal reflux disease) (Chronic) Diabetes (Chronic) GERD (gastroesophageal reflux disease) (Chronic) HTN (hypertension) (Chronic) Surgical History S/P CABG x 2 (Chronic) S/P repair of paraesophageal hernia (Chronic) History of Amie fundoplication (Chronic) H/O umbilical hernia repair (Chronic) x2 Status post cataract extraction (Chronic) Status post tonsillectomy (Chronic) Family History Mother Stroke Social History Preferred Language: Armenian Communication Ability: Effective Hog Handler Required: No Beliefs That Will Affect Care: None Current Living Situation: Spouse Other Information That Helps Us Care for You: No Feels Safe at Home: Yes Safety Concerns: Feels Safe At This Time Smoking Status: Former smoker Do You Dip or Chew Tobacco: No Smoking End Date: 1988 Hx Alcohol Use: Yes Hx Substance Use: No Review of Systems Review of Systems: All systems reviewed & are unremarkable except as noted in HPI & below Physical Exam Physical Exam: General: no acute distress and stated age Eyes: conjunctiva are pink and non-injected, sclera clear Neck: normal jugular venous pulse, no hepatojugular reflux Chest: normal shape and normal respiratory effort Lungs: clear to auscultation and percussion Cardiac Exam: - regular heart sounds, no murmurs, rubs, or gallops, no jugular venous distention Abdomen: abdomen soft, non-tender, no abnormal masses and no hepatosplenomegaly Musculoskeletal: no gait disturbance, no weakness Extremities: no edema and no cyanosis Neuro:awake, coversant, follows commands, no focal motor deficits Psych: appropriate affect and insight. Results & Data Vital Signs (Past 12 Hours) Vital Signs Temp Pulse Pulse Pulse Resp BP BP 03/31/19 07:33 36.3 C L 76 17 132/85 03/31/19 03:51 36.6 C 72 18 115/77 03/31/19 00:22 36.7 C 83 16 93/59 L 03/30/19 23:52 79 Pulse Ox 03/31/19 07:33 98 03/31/19 03:51 97 03/31/19 00:22 96 03/30/19 23:52 Laboratory Results Cardiac Enzymes 03/30/19 03/30/19 03/30/19 Range/Units 14:00 17:21 22:52 Troponin I < 0.015 < 0.015 0.024 (0-0.045) ng/ml 03/31/19 Range/Units 05:21 Troponin I < 0.015 (0-0.045) ng/ml Coagulation 03/30/19 Range/Units 14:00 PT 10.4 (9.0-12.0) Seconds APTT 20.4 L (21.0-31.0) Seconds CBC 03/30/19 03/31/19 Range/Units 14:00 05:21 WBC 10.86 H 7.42 (4.8-10.8) K/uL RBC 3.76 L 3.54 L (4.7-6.1) M/uL Hgb 11.1 L 10.5 L (14.0-18.0) g/dL Hct 33.6 L 31.0 L (42-52) % Plt Count 197 185 (130-400) K/uL Neut # (Auto) 9.23 H (1.4-6.5) K/uL Lymph # (Auto) 1.05 L (1.2-3.4) K/uL [place] # (Auto) 0.50 (0.11-0.59) K/uL Eos # (Auto) 0.01 (0-0.5) K/uL Baso # (Auto) 0.03 (0-0.2) K/uL Comprehensive Metabolic Panel 03/30/19 03/31/19 Range/Units 14:00 05:21 Sodium 142 142 (136-145) mmol/L Potassium 4.2 3.9 (3.5-5.1) mmol/L Chloride 113 H 113 H (98-107) mmol/L Carbon Dioxide 19 L 26 (21-32) mmol/L BUN 88 H 69 H (7-18) mg/dl Creatinine 1.39 1.41 H (0.6-1.4) mg/dl Glucose 130 H 114 H (70-99) mg/dl Calcium 8.8 8.8 (8.5-10.1) mg/dl Intake and Output 03/30/19 03/31/19 03/31/19 22:59 06:59 14:59 Intake Total 300 / 300 Output Total 900 / 900 Balance 300 / -600 -900 / -600 Intake: Oral 300 / 300 Output: Urine 900 / 900 Other: Other Intake Source NPO # Unmeasured Voids 3 Weight 113 kg 112.6 kg Diagnostic Findings EKG tracings as outlined above Medications Administered Current Inpatient Medications Acetaminophen (Tylenol) 650 mg PO Q4H PRN PRN Reason: Pain or Fever Stop: 04/29/19 18:20 Ascorbic Acid (Vitamin C) 500 mg PO HS [facility] Stop: 04/29/19 20:59 Last Admin: 03/30/19 21:04 Dose: 500 mg Documented by: Aspirin (Ecotrin Ectab) 81 mg PO DAILY [facility] Stop: 04/30/19 08:59 Last Admin: 03/31/19 08:11 Dose: 81 mg Documented by: Clopidogrel Bisulfate (Plavix) 75 mg PO QAM [facility] Stop: 04/30/19 08:59 Last Admin: 03/31/19 08:10 Dose: 75 mg Documented by: Cyanocobalamin (Vitamin B-12) 500 mcg PO SuTuThSa@0900 [facility] Stop: 04/30/19 08:59 Last Admin: 03/31/19 08:12 Dose: 500 mcg Documented by: Dextrose (Dextrose 50%) 25 - 50 ml IV UD PRN; Protocol PRN Reason: Hypoglycemia Protocol Stop: 04/29/19 18:20 Gabapentin (Neurontin) 600 mg PO TID [facility] Stop: 04/29/19 20:59 Last Admin: 03/31/19 08:10 Dose: 600 mg Documented by: Glucagon (Glucagen) 1 mg SQ UD PRN; Protocol PRN Reason: Hypoglycemia Protocol Stop: 04/29/19 18:20 Glucose (Glucose 40%) 15 - 30 gm PO UD PRN; Protocol PRN Reason: Hypoglycemia Protocol Stop: 04/29/19 18:20 Glucose (Dex4 Glucose) 4 - 8 tabs PO UD PRN; Protocol PRN Reason: Hypoglycemia Protocol Stop: 04/29/19 18:20 Insulin Aspart (Novolog Flexpen) 0 units SC ACHS [facility] Stop: 04/29/19 20:59 Last Admin: 03/31/19 08:04 Dose: Not Given Documented by: Isosorbide Mononitrate (Imdur Extended Rel) 30 mg PO QAM [facility] Stop: 04/30/19 08:59 Last Admin: 03/31/19 08:09 Dose: 30 mg Documented by: Lisinopril (Zestril) 5 mg PO DAILY [facility] Stop: 04/30/19 08:59 Last Admin: 03/31/19 08:10 Dose: 5 mg Documented by: Metoprolol Tartrate (Lopressor) 12.5 mg PO BID [facility] Stop: 04/29/19 20:59 Last Admin: 03/31/19 08:09 Dose: 12.5 mg Documented by: Miscellaneous (Carbohydrates For Hypoglycemia) 15 - 30 gm PO UD PRN PRN Reason: Hypoglycemia Treatment Stop: 04/29/19 18:20 Montelukast Sodium (Singulair) 10 mg PO PM [facility] Stop: 04/29/19 20:59 Last Admin: 03/30/19 21:04 Dose: 10 mg Documented by: Nitroglycerin (Nitrostat) 0.4 mg SL UD PRN PRN Reason: Chest Pain Stop: 04/29/19 18:20 Pyridoxine HCl (Vitamin B-6) 100 mg PO MoWeFr@0900 [facility] Stop: 05/01/19 08:59 Rosuvastatin Calcium (Crestor) 40 mg PO HS [facility] Stop: 04/29/19 20:59 Last Admin: 03/30/19 21:03 Dose: 40 mg Documented by: Tamsulosin HCl (Flomax) 0.4 mg PO DAILY [facility] Stop: 04/30/19 08:59 Last Admin: 03/31/19 08:12 Dose: 0.4 mg Documented by:
[2019-03-31] MEDS ORDERED: NOREPINEPHRINE BITARTRATE 1 MG/ML 4 ML VIAL (CATH LAB USE ONLY) ONE (11:18)
--- NOTE | 2019-03-31 12:16 | Cardiology Consultation ---
Date of Consultation March 31, 2019 Assessment & Plan (1) Unstable angina pectoris: Patient with known coronary artery disease, prior bypass surgery with known occluded vein graft to circumflex and severe [place] circumflex disease. Here with intermittent episodes of diaphoresis, shortness of breath found to have transient lateral ST depressions on EKG. Cardiac enzymes have been negative. Echo though shows mild decline in LV function in the setting of presyncopal event and echo lab today agree with proceeding with urgent cardiac catheterization. Discussed risk, benefits, alternatives of procedure with patient and he is willing to proceed. Plan to perform procedure via left radial artery. History of Present Illness Attending Physician: Michael Aguilar, History of Present Illness Mr. Becerra is a 73-year-old man with a history of coronary artery disease post two-vessel CABG in 1999, prior lateral STEMI with acute occlusion of vein graft to circumflex, type 2 diabetes, hypertension, dyslipidemia and ischemic heart myopathy with EF previously around 40%. Patient is followed by [facility] cardiology and Dr. Gann. Interventional cardiology consulted for cardiac catheterization. Patient had multiple recent episodes of generally feeling unwell, diaphoresis and some shortness of breath. Presenting EKG remarkable for lateral ST depressions. Serial troponins have been negative. Today while having an echo had an episode of presyncope and in the setting of concern for unstable ACS cardiac catheterization recommended. Allergies Allergy/AdvReac Type Severity Reaction Status Date / Time No Known Allergies Allergy Verified 03/30/19 14:33 Home Medications Home Medications Medication Instructions Recorded Confirmed Type isosorbide mononitrate 30 mg PO QAM #0 tab 08/12/14 03/30/19 History aspirin [Aspirin Low Dose] 81 mg PO DAILY #0 09/11/14 03/30/19 History clopidogrel 75 mg PO QAM #0 tab 11/18/14 03/30/19 History gabapentin 600 mg PO TID #0 cap 03/20/16 03/30/19 History montelukast 10 mg PO PM #0 tab 03/20/16 03/30/19 History metformin 500 mg PO BID #0 tab 02/10/17 03/30/19 History acetaminophen [Acetaminophen Extra 1,000 mg PO UD PRN #0 tab 08/15/17 03/30/19 History Strength] nitroglycerin 0.4 mg SUBLINGUAL Q5M PRN #0 08/15/17 03/30/19 History ascorbic acid (vitamin C) 500 mg PO HS 03/30/19 03/30/19 History cyanocobalamin (vitamin B-12) 500 mcg PO SUTUTHSA 03/30/19 03/30/19 History lisinopril 5 mg PO DAILY 03/30/19 03/30/19 History pyridoxine (vitamin B6) [Vitamin 100 mg PO MOWEFR 03/30/19 03/30/19 History B-6] rosuvastatin 40 mg PO HS 03/30/19 03/30/19 History tamsulosin 0.4 mg PO DAILY 03/30/19 03/30/19 History Patient History Medical History Paroxysmal A-fib (Chronic) TIA (transient ischemic attack) (Chronic) CVA (cerebral vascular accident) (Chronic) Diabetes mellitus, type 2 (Chronic) Hypertension (Chronic) Dyslipidemia (Chronic) Gout (Chronic) GERD (gastroesophageal reflux disease) (Chronic) Diabetes (Chronic) GERD (gastroesophageal reflux disease) (Chronic) HTN (hypertension) (Chronic) Surgical History S/P CABG x 2 (Chronic) S/P repair of paraesophageal hernia (Chronic) History of Amie fundoplication (Chronic) H/O umbilical hernia repair (Chronic) x2 Status post cataract extraction (Chronic) Status post tonsillectomy (Chronic) Family History Mother Stroke Social History Preferred Language: Arabic Communication Ability: Effective Photographic Platemaker Required: No Beliefs That Will Affect Care: None Current Living Situation: Spouse Other Information That Helps Us Care for You: No Feels Safe at Home: Yes Safety Concerns: Feels Safe At This Time Smoking Status: Former smoker Do You Dip or Chew Tobacco: No Smoking End Date: 1988 Hx Alcohol Use: Yes Hx Substance Use: No Review of Systems Review of Systems: All systems reviewed & are unremarkable except as noted in HPI & below Physical Exam Constitutional: WD/WN, vitals as above Respiratory: normal respiratory effort, lungs clear to auscultation Cardiovascular: RRR, no murmur, no edema Gastrointestinal (Abdomen): normal bowel sounds, soft, nontender, no hepatosplenomegaly Musculoskeletal: Extremities: extremities normal to inspection Skin: no rashes, warm and dry Psychiatric: A+Ox3, euthymic affect Results & Data Vital Signs (Past 12 Hours) Vital Signs Temp Pulse Pulse Resp BP BP Pulse Ox 03/31/19 07:33 36.3 C L 76 17 132/85 98 03/31/19 03:51 36.6 C 72 18 115/77 97 03/31/19 00:22 36.7 C 83 16 93/59 L 96
--- NOTE | 2019-03-31 12:20 | Hospitalist Progress Note ---
Date of Service March 31, 2019 Assessment & Plan (1) Chest pain: (2) Coronary artery disease: Echo at 11, Cath today too-Had QUARTZ CUTTER called in echo, went right to labor supervisor -Patient presenting with reports of shortness of breath and chest heaviness very similar to his anginal equivalent in the past -EKG demonstrates new T wave inversions in leads I, II, aVL -Trops all negative -Dr. Gann on case -Low threshold for initiating IV heparin however need to discuss with ophthalmology given patient's recent eye injury -Given tachycardia, will resume metoprolol 12.5 mg twice daily (this was discontinued by cardiology about 1 year ago secondary to bradycardia and hypotension) -Continue aspirin, Plavix, statin, nitrate, CIRO-I (3) Diabetes mellitus, type 2: -Hgb A1c 6.1 02/2019 -Hold oral agents and utilize NovoLog per protocol while hospitalized (4) Hypertension: -BP controlled, continue isosorbide and lisinopril, adding metoprolol as above (5) CVA (cerebral vascular accident): (6) TIA (transient ischemic attack): -Continue aspirin, Plavix, statin (7) DVT prophylaxis: -SCDs for now until discussed with ophthalmology Physical Exam Physical Exam: ROS-No Headache, No Visual Changes, No Nausea, No Vomiting, No Fever, No Chills, No Neck Pain or Stiffness, + Chest Pain similar to AMI CP, No Palpitations, No SOB, No HOYT, No Cough, No Sputum, No Wheezing, No Abdominal Pain, No Diarrhea, No Hematemesis, No Hemoptysis, No Unexpected Weight Loss, No Flank pain, No Melena, No Hematochezia, No Frequency, No Urgency, No Burning, No Hematuria, No Rashes, No Diaphoresis. Appetite is Normal Physical Exam Gen-AAO x 3, NAD, Afebrile, obese Head-NCAT, EOMI, PERRLA, Anicteric Sclera, No Posterior Pharyngeal Erythema Neck-Supple, No JVD, No Thyromegaly, No Masses, No LAD, No Bruits Lungs-Clear to Auscultation Bilaterally, No Rales, No Rhonchi, No Wheezing, No Crepitus Chest-No S4, +S1, +S2, No S3, No Murmurs, No Rubs, No Gallops, No Ectopy Abdomen-Soft, Bowel Sounds Present, Non Tender, Non Distended, No Hepatomegaly, No Splenomegaly, No Palpable Masses, No Rebound, No Rigidity, No Guarding Musculoskeletal-Full Range of Motion Bilaterally, No CVAT Extremities-No Cyanosis, No Clubbing, No Edema Nuero-Cranial Nerves II-XII grossly intact, Motor WNL, DTRs WNL, Strength WNL, Non Focal Psych-Normal Mood Results & Data Vital Signs (Past 12 Hours) Vital Signs Temp Pulse Pulse Resp BP BP Pulse Ox 03/31/19 07:33 36.3 C L 76 17 132/85 98 03/31/19 03:51 36.6 C 72 18 115/77 97 03/31/19 00:22 36.7 C 83 16 93/59 L 96 Current Diagnoses Type 2 diabetes mellitus without complications (03/30/19) Transient cerebral ischemic attack, unspecified (03/30/19) Essential (primary) hypertension (03/30/19) Unstable angina (03/30/19) Atherosclerotic heart disease of [place] coronary artery without angina pectoris (03/30/19) Cerebral infarction, unspecified (03/30/19) Chest pain, unspecified (03/30/19) Allergies No Known Allergies Allergy (Verified 03/30/19 14:33) Height/Weight/Isolation Height 6 ft 3 in Weight 112.6 kg Chemistry 03/30/19 03/31/19 14:00 05:21 Sodium 142 142 Potassium 4.2 3.9 Chloride 113 H 113 H Carbon Dioxide 19 L 26 Anion Gap 10.0 3.0 BUN 88 H 69 H Creatinine 1.39 1.41 H Glucose 130 H 114 H
[2019-03-31] MEDS ORDERED: SODIUM CHLORIDE 0.9% 1000ML 1,000 ML IV SCH (12:30)
--- NOTE | 2019-03-31 12:33 | Pre Anesthesia Assessment ---
Date of Service March 31, 2019 Pre Sedation Assessment Vital Signs Temp Pulse Pulse Pulse Resp BP BP 03/31/19 07:33 36.3 C L 76 17 03/31/19 03:51 36.6 C 72 18 115/77 03/31/19 00:22 36.7 C 83 16 93/59 L 03/30/19 23:52 79 03/30/19 19:16 37.4 C 97 H 20 152/94 H 03/30/19 18:25 36.6 C 116 H 18 03/30/19 18:24 03/30/19 18:16 36.8 C 103 H 18 03/30/19 17:30 90 18 143/89 H 03/30/19 17:00 03/30/19 16:38 03/30/19 15:33 100 H 18 03/30/19 15:32 101 H 23 118/86 03/30/19 15:31 103 H 29 H 118/86 03/30/19 15:30 100 H 21 03/30/19 15:01 105 H 19 133/88 03/30/19 15:00 105 H 21 03/30/19 14:31 107 H 19 126/94 03/30/19 14:30 107 H 20 03/30/19 14:10 129 H 22 128/105 H 03/30/19 14:00 102 H 17 03/30/19 13:57 104 H 19 03/30/19 13:51 03/30/19 13:46 101 H 21 112/86 03/30/19 13:34 36.7 C 109 H 20 135/80 BP Pulse Ox Pulse Ox 03/31/19 07:33 132/85 98 03/31/19 03:51 97 03/31/19 00:22 96 03/30/19 23:52 03/30/19 19:16 95 03/30/19 18:25 126/87 99 03/30/19 18:24 99 03/30/19 18:16 126/87 99 03/30/19 17:30 100 03/30/19 17:00 95 03/30/19 16:38 99 03/30/19 15:33 97 03/30/19 15:32 97 03/30/19 15:31 96 03/30/19 15:30 97 03/30/19 15:01 98 03/30/19 15:00 97 03/30/19 14:31 97 03/30/19 14:30 97 03/30/19 14:10 98 03/30/19 14:00 03/30/19 13:57 03/30/19 13:51 99 03/30/19 13:46 03/30/19 13:34 99 Cardiovascular RRR, no murmur, no edema Respiratory normal respiratory effort, lungs clear to auscultation Pre-Sedation Airway Assessment Smoking Status: Former smoker Hx Sleep Apnea: No Hx Difficult Intubation: No Short, Thick Neck: No Thyromental Distance: > or= 3.5 Finger Breadths Oral Cavity: + WNL Mallampati Class: III Procedure Planning Contraindications for Sedation: none Current Medications Reviewed: Yes Notes The planned sedation has been discussed with the patient. Informed Consent was obtained. I have identified the patient, determined the appropriateness of sedation and have assessed the patient immediately prior to the procedure. All medicine(s) and interventions are by my order.
--- NOTE | 2019-03-31 12:34 | Post Anesthesia Assessment ---
Date of Service March 31, 2019 Post Sedation Assessment Vital Signs Temp Pulse Pulse Pulse Resp BP BP 03/31/19 07:33 36.3 C L 76 17 03/31/19 03:51 36.6 C 72 18 115/77 03/31/19 00:22 36.7 C 83 16 93/59 L 03/30/19 23:52 79 03/30/19 19:16 37.4 C 97 H 20 152/94 H 03/30/19 18:25 36.6 C 116 H 18 03/30/19 18:24 03/30/19 18:16 36.8 C 103 H 18 03/30/19 17:30 90 18 143/89 H 03/30/19 17:00 03/30/19 16:38 03/30/19 15:33 100 H 18 03/30/19 15:32 101 H 23 118/86 03/30/19 15:31 103 H 29 H 118/86 03/30/19 15:30 100 H 21 03/30/19 15:01 105 H 19 133/88 03/30/19 15:00 105 H 21 03/30/19 14:31 107 H 19 126/94 03/30/19 14:30 107 H 20 03/30/19 14:10 129 H 22 128/105 H 03/30/19 14:00 102 H 17 03/30/19 13:57 104 H 19 03/30/19 13:51 03/30/19 13:46 101 H 21 112/86 03/30/19 13:34 36.7 C 109 H 20 135/80 BP Pulse Ox Pulse Ox 03/31/19 07:33 132/85 98 03/31/19 03:51 97 03/31/19 00:22 96 03/30/19 23:52 03/30/19 19:16 95 03/30/19 18:25 126/87 99 03/30/19 18:24 99 03/30/19 18:16 126/87 99 03/30/19 17:30 100 03/30/19 17:00 95 03/30/19 16:38 99 03/30/19 15:33 97 03/30/19 15:32 97 03/30/19 15:31 96 03/30/19 15:30 97 03/30/19 15:01 98 03/30/19 15:00 97 03/30/19 14:31 97 03/30/19 14:30 97 03/30/19 14:10 98 03/30/19 14:00 03/30/19 13:57 03/30/19 13:51 99 03/30/19 13:46 03/30/19 13:34 99 Recovery Score Activity: Moves 4 extremities Respiration: Deep Breath/Cough Circulation: +/-20% PreAnes Value Consciousness: Fully Awake Oxygen Saturation: O2 needed for >90% Discharge Sedation Level of Care: Fast Track Phase II Post Sedation Plan On clinical assessment, the patient appears to have tolerated the sedation without complications. Patient is recovering as anticipated. Patient will continue to be monitored by nursing and may be discharged when sedation discharge criteria are met per below protocol. Upon Completions of procedure and additional 15 minutes continue every 5 minute vital signs and the P.A.R. score; then discharge to a Phase I or Fast Track to Phase II per the following guidelines: * Discharge Patient to appropriate Phase II area if PAR is 8 or greater or return to pre- procedure baseline. The post - procedure orders will be as directed. * If PAR score is less than 8 or not return to pre-procedure baseline then patient will follow Phase I monitoring till PAR is reached for Phase II. The Phase I may be done in procedure room or may call to secure a Phase I area. * If naloxone or flumazenil are used for reversal, hold in Phase I for continued monitoring from when last reversal dose was given for a minimum of 60 minutes or longer pending the nurse and/or physician discretion of patient condition before discharge to Phase II. Please call the Sedation Physician to re-evaluate and complete post-note for discharge to Phase II area. Do NOT discharge from procedure sedation or Phase 1 until post- sedation evaluation note is complete by procedure /sedation MD Sedation Discharge Instructions to be given to the patient at discharge to home.
[2019-03-31 12:36] LABS: iSTAT Arterial Blood Gas HCO3 20 meg/L (19-24); iSTAT Arterial Blood Gas pCO2 42 mmHg (35-46); iSTAT Carbon Dioxide 22 mEq/l (24-31)
[2019-03-31 12:36] LABS: iSTAT Arterial Blood Gas HCO3 20 meg/L (19-24); iSTAT Arterial Blood Gas pCO2 42 mmHg (35-46); iSTAT Carbon Dioxide 22 mEq/l (24-31)
[2019-03-31] MEDS ORDERED: ICU PROTOCOL FOR HYPERGLYCEMIA PRN (12:36)
--- NOTE | 2019-03-31 12:44 | Cardiac Catheterization ---
Cardiac Cath Procedure Full Procedure Date March 31, 2019 Pre-Procedure Diagnosis Pre-Procedure Diagnosis: Acute Coronary Syndrome AUC Score AUC Score: 8 Post-Procedure Diagnosis Post-Procedure Diagnosis: Severe CAD and Normal Intracardiac Pressures Procedure(s) Performed Procedure(s) Performed: Coronary Angiography, Left Heart Cath, Right Heart Cath and Ultrasound Guided Vascular Access Business Editor Steven Luna MD Identification Printing Machine Setter(s) Michael Estimated Blood Loss Estimated Blood Loss: 10 Medication(s) Medication(s): Fentanyl, Heparin, Lidocaine 1%, Nicardipine, Nitroglycerin, Norepinephrine and Versed Summary of Findings Indication: Suspected unstable angina Access: 6 Fr left radial artery under ultrasound guidance, 7Fr right CFV Catheters: JR4, JL 3.5, EBU 3.5 guide Findings: With fentanyl 25 mcg, 1mg versed patient's systolic cough pressures to 80s, aortic catheter pressures to 50s. Received IV fluids and started on norepi. LM -calcified, moderate diffuse disease LAD -occluded at the ostium Circumflex -small vessel mild diffuse disease, severe diffuse mid segment disease. Occluded OM 2 fills via right to left collaterals. Small OM1 without significant disease. RCA -moderate caliber vessel, mild diffuse mid segment disease, 50% distal right PAV right after takeoff of PDA FOLEY to LADwidely patent, mid to distal LAD after anastomosis without significant disease. RA 0 RV 24/5 PA 21/3 (10) PAWP 4 LV 2 PaSat 59% AoSat 99% Swati CO/CI 5.3/2.2 LM cannulated with EBU 3.5 guide. Attempted to probe ostial LAD occlusion with airplane pilot photogrammetry 50 wire. Occlusion more consistent with chronic occlusion and equipment removed. Arterial Closure: TR Band. Norepi weaned off following completion of pressure. Summary: 1. Severe chronic coronary artery disease - Occluded ostial LAD (previously occluded in the mid segment in 2009 with loss of S1, D1 on current cath). - Severe mid circumflex disease. Occluded OM2. - 50% distal RCA/PAV disease 2. Patent FOLEY to LAD. SVG to Circumflex known to be occluded. 3. Low intracardiac filling pressures. 4. Normal cardiac output Recommendations: No evidence of ACS or low cardiac output to explain presyncope, dyspneic/diaphoretic spells. Continue IV fluids in setting of low filling pressuress Continued DAPT and ASCVD risk factor modification Further cardiac care per Dr. Gann Hemodynamics Rest Ao:: / Ao: LV: 55/2 Recommendations Recommendations: Medical Therapy and/or Counseling Specimens Specimens: None Radiation Exposure (mGy) 2140 Contrast (mls) 95 Fluids (cc crystalloids) Fluids (cc crystalloids): 750 Drains Drains: none Anesthesia moderate Procedural Complication(s) None Disposition ICU ACC Data: Rug Inspector Cardiac Status Clinical evaluation leading to the procedure CAD Presenation: Unstable angina Anginal Classification: CCS III Heart Failure: No Cardiogenic Shock within 24 Hours: No Cardiac Arrest within 24 Hours: No Imaging Studies Past 6 Months: Yes Stress Studies Past 6 Months: No Diagnostic Physicians Name: Steven Luna MD Closure Device Percutaneous Entry Location: Radial Closure Device: Radial Band Recommendations: Medical Therapy and/or Counseling PCI Indication: Unstable Angina Intraprocedure Events Significant Disection: No Perforation: No
[2019-03-31] MEDS ORDERED: NORMOSOL-R 1,000 ML IV ONE (13:07)
[2019-03-31] MEDS: NOREPINEPHRINE BIT INJ 8 MG in DEXTROSE 5% 500 ML IV SCH (13:47)
--- NOTE | 2019-03-31 14:40 | Critical Care Consultation ---
Date of Consultation March 31, 2019 Assessment & Plan (1) Unresponsive episode: Reason Critically Ill: Tulio is a 73-year-old male with a past medical history of CABG x2, coronary artery disease, Amie fundoplication, a single episode of A. 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 He has been admitted to ICU for care following hypotension and bradycardia S/P cardiac catheterization requiring pressor support. Neuro - [facility] ICU: Negative CVA/TIA: History of multiple TIA/CVA with no ongoing strength deficits, but some chronic memory deficits. On dual antiplatelet therapy with aspirin and Plavix, no recent events. MRA and CTA in 2016 showed bilateral MCA, REVIEWER SALES disease with diffuse cerebellar and cerebral atrophy with multifocal infarct. Continue aspirin and Plavix Bilateral carotid Doppler given history of TIA and unresponsive episode today Cardiac - Unresponsive event Following completion of an echo in the CP lab he had an episode of unresponsiveness and a code purple was called. Was not on telemetry at this time. Given concern based on reported decrease in LVEF from 50 to 55% in 2013 to 30% on echo, T wave inversions in leads I, 2, aVL he was taken immediately for cardiac catheterization which showed worsening disease compared to his last cath but with a widely patent LAD graft and no acute changes. Right heart cath showed preserved flow with diminished filling pressure. Given these findings he likely has chronic underlying cardiac disease progression and am suspicious for a vascular or less likely neurogenic origin for his symptoms. Troponins negative. - Bilateral doppler as above. Hold on CT-A given dye load from cardiac cath, follow Cr and puruse once renally stable and able to handle the dye load History of SD status post CABG x2, CAD - On DAPT Plavix/ASA - Hold metoprolol for hypotension - Hold lisinopril for hypotension - Rosuvastatin 40mg daily - Imdur 30mg qAM Respiratory - Shortness of breath without hypoxia - Normal appearing CXR without consolidation or fluid - Low suspicion for PNA - No signs of fluid overload - Sats adequate on room air. - ABG 7.3/42/181/20. RE GI - On a heart healthy diet today. Made n.p.o. at midnight by cardiology out of concern for possible interventional needs tomorrow RENAL/LYTES - No sodium, potassium derangement Cr 1.41, baseline appears ~1.3. Recieved dye load from cardiac cath today, reeval tomorrow Replace lytes as needed. - No concerns at this time. 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 Glucose in 100's. Glucose 150 after code purple above. HEME - Stable H&H. Hgb 10.5 Chronic normocytic anemia No indication for transfusion at this time. No leukocytosis. ID - No concerns for infection at this point. INTEGUMENTARY - No concerns at this time. LINES/IV ACCESS - PIVs intact. DVT PROPHYLAXIS - Heparin held in setting of recent eye injury. DAPT, SCDs. Thank you for allowing us to be part of this patient's care. Please refer to Dr. Gross's documentation for any further recommendations. Supervising Physician Co-Signing Physician Notes Dr. Kraft was resident physician during care of patient. I separately evalu ated patient for peraza portions of the history and the exam. I was present during the critical portion of medical decision making, and I discussed the case with the resident. I generally agree with the findings and plan. Patient requires Levophed for blood pressure support. I discussed the case with Dr. Mcdonald as well as Dr. Luna. I have personally spent 40 minutes of critical care time in the direct management of this patient. This is a life/limb threatening event. This includes time spent evaluating patient, direct bedside care, chart review, placing orders, interpretation of diagnostic studies, discussion with consultants, patient, and/or family members regarding treatment decisions, as well as other required patient management activities. This time is exclusive of all separately billable procedures, and teaching time and separate from and in addition to any other critical care service time. History of Present Illness Attending Physician: Michael Aguilar DO History of Present Illness Tulio is a 73-year-old male with a past medical history of CABG x2, coronary artery disease, Amie fundoplication, a single episode of A. 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 5 days prior to admission he had been mowing when his stone was kicked up, bounced off a dumpster, and struck the lateral portion of his right eye. He experienced clouding of his vision and was seen by Dr. Wilkerson with ophthalmology. He was placed on Alphagan and timolol drops and was seen yesterday for follow- up with reported normalization of his intraocular pressures. 2 days prior to admission he experienced an episode of "sweating like crazy "after showering with achiness, nausea, and diarrhea. He did not have any fevers, chills, or cough. He had some increased shortness of breath that evening without chest pain but feeling "uncomfortable ". He reports that with his prior heart attacks he did not get chest pain. On Saturday his shortness of breath worsened, he experienced improvement in his nausea and diarrhea but worsening with his chest discomfort and presented to the hospital. On admission to the hospital his troponins were noted to be negative although he had EKG changes including T wave inversions in leads I, II and aVL and he was taken for echocardiography. Repeat echo showed decrease in his LVEF to 30 to 35% from 50 to 55% in 2013. While in the [facility] lab he had a brief (less than 1 minute) episode of unresponsiveness while in a wheelchair. He was not on monitor at the time, a code purple was called. He spontaneously resumed consciousness but was diaphoretic. Blood sugar at the time was 150. Blood pressure at [facility] was 120/60. Given his presentation he was taken immediately to the [facility] and underwent cardiac catheterization which showed severe chronic coronary artery disease with known occlusion of ostial LAD and occluded SVG to circumflex graft. He also showed severe mid circumflex disease, 50% distal RCA disease, and low intracardiac filling pressures. His FOLEY to LAD was patent with normal cardiac output. Following cardiac catheterization he became bradycardic to 53 and hypotensive with systolic pressure in the 90s and he was transferred to the ICU for cardiac monitoring and pressure support. He was placed on Levophed on admission. His case was discussed between Dr. Gann and Dr. Wilkerson. Dr. Wilkerson recommended holding Alphagan and continuing atenolol to discontinue timolol if he became bradycardic in the future. Prior to admission he had been taking all medications as directed with the Alphagan and timolol being the only recent changes. He is otherwise on Plavix, isosorbide mononitrate, metformin, Flomax, gabapentin, Singulair, Crestor, aspirin, lisinopril. 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 Corey due to hypotension. Reconciliation of his prior CVA history showed work-up as below: Review of head and neck CTA from [facility] system performed on April 2016 with the followin. Occlusion of right M1 segment with distal reformation of insular and opercular branches through leptomeningeal collaterals from [facility] and posterior circulation 2. Severe, more than 70%, stenosis of left M1 segment with normal opacification of distal MCA 3. Chronic infarcts in the supratentorial brain and a bilateral MCA, right REVIEWER SALES distribution and right deep watershed distribution with corresponding expected perfusion abnormality 4. Diminutive right posterior cerebral artery P1 segment with distal occlusion and chronic right occipital lobe infarct 5. Severe short segment stenosis of left proximal ICA secondary to mixed attenuation atherosclerotic plaque In April 2016 Brain MRA showed occluded/severely attenuated signal in the MCA bilaterally and a nearly occluded right REVIEWER SALES. Left REVIEWER SALES and vertebrobasilar system are unremarkable. Brain MRI showed diffuse cerebellar and cerebral atrophy, multifocal infarct cerebellar and cerebral, and no acute intracranial abnormality at the time. He was seen on 05/22/[address] Bell with [facility] who reviewed his imaging and noted he first had a stroke at age 29 with right-sided weakness with his only risk factor at the time being extensive smoking. Was noted to have frequent TIAs at that time and was placed on aspirin and Plavix for secondary prevention. 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 We reviewed angiogram findings and it was felt that no endovascular intervention was feasible. He was instructed to continue medical management and follow-up with his PCP in stroke clinic. They noted he was a 1 pack-a-day smoker for approximately 20 years, stopped in 1988. Allergies Allergy/AdvReac Type Severity Reaction Status Date / Time No Known Allergies Allergy Verified 03/30/19 14:33 Home Medications Home Medications Medication Instructions Recorded Confirmed Type isosorbide mononitrate 30 mg PO QAM #0 tab 08/12/14 03/30/19 History aspirin [Aspirin Low Dose] 81 mg PO DAILY #0 09/11/14 03/30/19 History clopidogrel 75 mg PO QAM #0 tab 11/18/14 03/30/19 History gabapentin 600 mg PO TID #0 cap 03/20/16 03/30/19 History montelukast 10 mg PO PM #0 tab 03/20/16 03/30/19 History metformin 500 mg PO BID #0 tab 02/10/17 03/30/19 History acetaminophen [Acetaminophen Extra 1,000 mg PO UD PRN #0 tab 08/15/17 03/30/19 History Strength] nitroglycerin 0.4 mg SUBLINGUAL Q5M PRN #0 08/15/17 03/30/19 History ascorbic acid (vitamin C) 500 mg PO HS 03/30/19 03/30/19 History cyanocobalamin (vitamin B-12) 500 mcg PO SUTUTHSA 03/30/19 03/30/19 History lisinopril 5 mg PO DAILY 03/30/19 03/30/19 History pyridoxine (vitamin B6) [Vitamin 100 mg PO MOWEFR 03/30/19 03/30/19 History B-6] rosuvastatin 40 mg PO HS 03/30/19 03/30/19 History tamsulosin 0.4 mg PO DAILY 03/30/19 03/30/19 History Patient History Medical History Paroxysmal A-fib (Chronic) TIA (transient ischemic attack) (Chronic) CVA (cerebral vascular accident) (Chronic) Diabetes mellitus, type 2 (Chronic) Hypertension (Chronic) Dyslipidemia (Chronic) Gout (Chronic) GERD (gastroesophageal reflux disease) (Chronic) Diabetes (Chronic) GERD (gastroesophageal reflux disease) (Chronic) HTN (hypertension) (Chronic) Surgical History S/P CABG x 2 (Chronic) S/P repair of paraesophageal hernia (Chronic) History of Amie fundoplication (Chronic) H/O umbilical hernia repair (Chronic) x2 Status post cataract extraction (Chronic) Status post tonsillectomy (Chronic) Family History Mother Stroke Social History Preferred Language: Luxembourgish Communication Ability: Effective 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 Beliefs That Will Affect Care: None Current Living Situation: Spouse Other Information That Helps Us Care for You: No Feels Safe at Home: Yes Safety Concerns: Feels Safe At This Time Smoking Status: Former smoker Do You Dip or Chew Tobacco: No Smoking End Date: 1988 Hx Alcohol Use: Yes Hx Substance Use: No Review of Systems Review of Systems: Constitutional: Denies fever, chills, malaise, weight change Eyes: Endorses vision change, denies flashers reports visual acuity is intact but with a slight hazy quality ENT: Denies ear pain, sore throat Cardiovascular: Denies Chest pain, endorses chest 'uncomfortablenss'. Denies chest pressure, palpitations, extremity swelling Respiratory: Endorses shortness of breath, denies cough, sputum production, difficulty breathing Gastrointestinal: Denies abdominal pain, nausea, vomiting, constipation, diarrhea today. Genitourinary: Denies pain with urination Musculoskeletal: Denies weakness, muscle aches/pain, joint aches/pain Integumentary:Denies rash, lesions, bruising Neurological: Endorses some neuropathy at baseline. Denies headache, focal weakness. Physical Exam Physical Exam: General: A&Ox3. NAD. Cooperative. HEENT: Atraumatic, normocephalic. Pulm: CTAB A&P. -wheezes, -rales, -rhonchi. Symmetrical chest rise. No increase work of breathing. No respiratory distress. Cardiac: RRR, -mrg. Radial pulses intact and symmetrical. Abdominal: Nontender, nondistended, soft. BS present. Neuro: Speech: Fluent, no dysarthria, naming/comprehension intact without word finding difficulty Cranial nerve: Pupils equal and reactive to light bilaterally, decreased visual acuity in right eye, EOM intact without gaze preference, no facial asymmetry, hearing grossly intact Motor: 5 out of 5 strength to finger flexion/extension/interosseous, wrist flexion/extension, elbow flexion/extension, shoulder flexion, ankle dorsiflexion/plantarflexion, hip flexion bilaterally Sensory: Sensation intact to soft touch in distal extremities without deficit. No clonus Cerebellar: Normal [id number], [id number]-[id number] without tremor or dysmetria. No dysdiadochokinesia. Results & Data Vital Signs (Past 12 Hours) Vital Signs Temp Pulse Pulse Pulse Resp BP BP 03/31/19 13:37 57 L 16 103/56 L 03/31/19 13:32 51 L 14 101/60 03/31/19 13:27 51 L 14 96/56 L 03/31/19 13:22 52 L 19 86/50 L 03/31/19 13:17 55 L 20 96/59 L 03/31/19 13:12 54 L 18 89/50 L 03/31/19 13:08 54 L 17 84/48 L 03/31/19 13:02 51 L 13 104/58 L 03/31/19 13:01 52 L 16 117/65 03/31/19 13:00 51 L 18 90/59 L 03/31/19 12:54 61 18 64/28 L 03/31/19 12:47 57 L 18 85/46 L 03/31/19 12:44 63 20 75/43 L 03/31/19 12:39 63 23 86/46 L 03/31/19 12:37 19 03/31/19 10:28 49 L 03/31/19 09:30 78 03/31/19 09:00 88 03/31/19 08:30 73 03/31/19 08:00 71 03/31/19 07:33 36.3 C L 76 17 03/31/19 07:30 75 03/31/19 07:00 71 03/31/19 03:51 36.6 C 72 18 115/77 BP Pulse Ox 03/31/19 13:37 03/31/19 13:32 100 03/31/19 13:27 100 03/31/19 13:22 98 03/31/19 13:17 100 03/31/19 13:12 03/31/19 13:08 03/31/19 13:02 100 03/31/19 13:01 100 03/31/19 13:00 100 03/31/19 12:54 97 03/31/19 12:47 100 03/31/19 12:44 03/31/19 12:39 03/31/19 12:37 03/31/19 10:28 03/31/19 09:30 03/31/19 09:00 03/31/19 08:30 03/31/19 08:00 03/31/19 07:33 132/85 98 03/31/19 07:30 03/31/19 07:00 03/31/19 03:51 97 Laboratory Results 03/31/19 03/31/19 03/31/19 Range/Units 16:00 13:21 10:52 WBC (4.8-10.8) K/uL RBC (4.7-6.1) M/uL Hgb (14.0-18.0) g/dL Hct (42-52) % MCV (80-100) fL MCH (25-34) pg MCHC (32-36) g/dL RDW Std Deviation (36.4-46.3) fL RDW Coeff of Leela (11.5-14.5) % Plt Count (130-400) K/uL MPV (7.4-10.4) fL POC pH 7.30 L (7.35-7.45) POC pCO2 42 (35-46) mmHg POC pO2 181 H (80-95) mmHg POC HCO3 20 (19-24) catrachito/L POC Total CO2 22 L (24-31) mEq/l POC Base Excess -6.0 (-9-1.8) catrachito/L POC ABG O2 Sat 99.0 H (90-95) % Sodium (136-145) mmol/L Potassium (3.5-5.1) mmol/L Chloride (98-107) mmol/L Carbon Dioxide (21-32) mmol/L Anion Gap (3-11) BUN (7-18) mg/dl Creatinine (0.6-1.4) mg/dl Est Cr Clr Drug Dosing ml/min Est GFR ( Amer) Est GFR (Non-Af Amer) BUN/Creatinine Ratio (10-20) Glucose (70-99) mg/dl POC Glucose 132 H (70-99) Calcium (8.5-10.1) mg/dl Troponin I (0-0.045) ng/ml Nasal Screen MRSA (PCR) Negative (Negative) 03/31/19 03/31/19 03/31/19 Range/Units 10:49 10:35 05:21 WBC 7.42 (4.8-10.8) K/uL RBC 3.54 L (4.7-6.1) M/uL Hgb 10.5 L (14.0-18.0) g/dL Hct 31.0 L (42-52) % MCV 87.6 (80-100) fL MCH 29.7 (25-34) pg MCHC 33.9 (32-36) g/dL RDW Std Deviation 49.0 H (36.4-46.3) fL RDW Coeff of Leela 15.1 H (11.5-14.5) % Plt Count 185 (130-400) K/uL MPV 11.0 H (7.4-10.4) fL POC pH 7.30 L (7.35-7.45) POC pCO2 42 (35-46) mmHg POC pO2 34 L (80-95) mmHg POC HCO3 20 (19-24) catrachito/L POC Total CO2 22 L (24-31) mEq/l POC Base Excess -6.0 (-9-1.8) catrachito/L POC ABG O2 Sat 59.0 L (90-95) % Sodium (136-145) mmol/L Potassium (3.5-5.1) mmol/L Chloride (98-107) mmol/L Carbon Dioxide (21-32) mmol/L Anion Gap (3-11) BUN (7-18) mg/dl Creatinine (0.6-1.4) mg/dl Est Cr Clr Drug Dosing ml/min Est GFR ( Amer) Est GFR (Non-Af Amer) BUN/Creatinine Ratio (10-20) Glucose (70-99) mg/dl POC Glucose 150 H (70-99) Calcium (8.5-10.1) mg/dl Troponin I (0-0.045) ng/ml Nasal Screen MRSA (PCR) (Negative) 03/31/19 03/30/19 03/30/19 Range/Units 05:21 22:52 20:08 WBC (4.8-10.8) K/uL RBC (4.7-6.1) M/uL Hgb (14.0-18.0) g/dL Hct (42-52) % MCV (80-100) fL MCH (25-34) pg MCHC (32-36) g/dL RDW Std Deviation (36.4-46.3) fL RDW Coeff of Leela (11.5-14.5) % Plt Count (130-400) K/uL MPV (7.4-10.4) fL POC pH (7.35-7.45) POC pCO2 (35-46) mmHg POC pO2 (80-95) mmHg POC HCO3 (19-24) catrachito/L POC Total CO2 (24-31) mEq/l POC Base Excess (-9-1.8) catrachito/L POC ABG O2 Sat (90-95) % Sodium 142 (136-145) mmol/L Potassium 3.9 (3.5-5.1) mmol/L Chloride 113 H (98-107) mmol/L Carbon Dioxide 26 (21-32) mmol/L Anion Gap 3.0 (3-11) BUN 69 H (7-18) mg/dl Creatinine 1.41 H (0.6-1.4) mg/dl Est Cr Clr Drug Dosing 65.2 ml/min Est GFR ( Amer) 57.7 Est GFR (Non-Af Amer) 49.8 BUN/Creatinine Ratio 49.2 H (10-20) Glucose 114 H (70-99) mg/dl POC Glucose 98 (70-99) Calcium 8.8 (8.5-10.1) mg/dl Troponin I < 0.015 0.024 (0-0.045) ng/ml Nasal Screen MRSA (PCR) (Negative) Medications Administered Current Inpatient Medications Acetaminophen (Tylenol) 650 mg PO Q4H PRN PRN Reason: Pain or Fever Stop: 04/29/19 18:20 Ascorbic Acid (Vitamin C) 500 mg PO HS [facility] Stop: 04/29/19 20:59 Last Admin: 03/30/19 21:04 Dose: 500 mg Documented by: Aspirin (Ecotrin Ectab) 81 mg PO DAILY [facility] Stop: 04/30/19 08:59 Last Admin: 03/31/19 08:11 Dose: 81 mg Documented by: Clopidogrel Bisulfate (Plavix) 75 mg PO QAM [facility] Stop: 04/30/19 08:59 Last Admin: 03/31/19 08:10 Dose: 75 mg Documented by: Cyanocobalamin (Vitamin B-12) 500 mcg PO SuTuThSa@0900 [facility] Stop: 04/30/19 08:59 Last Admin: 03/31/19 08:12 Dose: 500 mcg Documented by: Dextrose (Dextrose 50%) 25 - 50 ml IV UD PRN; Protocol PRN Reason: Hypoglycemia Protocol Stop: 04/29/19 18:20 Gabapentin (Neurontin) 600 mg PO TID [facility] Stop: 04/29/19 20:59 Last Admin: 03/31/19 13:51 Dose: 600 mg Documented by: Glucagon (Glucagen) 1 mg SQ UD PRN; Protocol PRN Reason: Hypoglycemia Protocol Stop: 04/29/19 18:20 Glucose (Glucose 40%) 15 - 30 gm PO UD PRN; Protocol PRN Reason: Hypoglycemia Protocol Stop: 04/29/19 18:20 Glucose (Dex4 Glucose) 4 - 8 tabs PO UD PRN; Protocol PRN Reason: Hypoglycemia Protocol Stop: 04/29/19 18:20 Sodium Chloride (Nss 1000ml) 1,000 mls @ 150 mls/hr IV .Q6H40M [facility] Stop: 03/31/19 19:09 Last Admin: 03/31/19 13:42 Dose: 150 mls/hr Documented by: Norepinephrine Bitartrate 8 mg (/ Dextrose) 508 mls @ 38.61 mls/hr IV .[id number] [facility]; Protocol Stop: 04/30/19 13:44 Last Titration: 03/31/19 17:57 Dose: 0.09 mcg/kg/min, 38.6 mls/hr Documented by: Insulin Aspart (Novolog Flexpen) 0 units SC ACHS [facility] Stop: 04/29/19 20:59 Last Admin: 03/31/19 17:00 Dose: 4 units Documented by: Isosorbide Mononitrate (Imdur Extended Rel) 30 mg PO QAM [facility] Stop: 04/30/19 08:59 Last Admin: 03/31/19 08:09 Dose: 30 mg Documented by: Lisinopril (Zestril) 5 mg PO DAILY [facility] Stop: 04/30/19 08:59 Last Admin: 03/31/19 08:10 Dose: 5 mg Documented by: Miscellaneous (Carbohydrates For Hypoglycemia) 15 - 30 gm PO UD PRN PRN Reason: Hypoglycemia Treatment Stop: 04/29/19 18:20 Miscellaneous (Icu Protocol For Hyperglycemia) 1 ea N/A PRN PRN; Protocol PRN Reason: Hyperglycemia Protocol Stop: 04/02/19 12:35 Montelukast Sodium (Singulair) 10 mg PO PM [facility] Stop: 04/29/19 20:59 Last Admin: 03/30/19 21:04 Dose: 10 mg Documented by: Nitroglycerin (Nitrostat) 0.4 mg SL UD PRN PRN Reason: Chest Pain Stop: 04/29/19 18:20 Pyridoxine HCl (Vitamin B-6) 100 mg PO MoWeFr@0900 [facility] Stop: 05/01/19 08:59 Rosuvastatin Calcium (Crestor) 40 mg PO HS [facility] Stop: 04/29/19 20:59 Last Admin: 03/30/19 21:03 Dose: 40 mg Documented by: Tamsulosin HCl (Flomax) 0.4 mg PO DAILY [facility] Stop: 04/30/19 08:59 Last Admin: 03/31/19 08:12 Dose: 0.4 mg Documented by: Resident Activity Tracking Resident Involvement: Resident Care Provided Care Provided: Adult Hospital Medicine
--- NOTE | 2019-03-31 15:12 | Cardiology Progress Note ---
Date of Service March 31, 2019 Subjective Patient reassessed. Resting comfortably, lying supine. Sinus bradycardia at 53 bpm noted on night monitor. Systolic blood pressure 99 mmHg by noninvasive cuff. He remains on low-dose Levophed for blood pressure support. I called Dr Medina of ophthalmology who would examined him yesterday. At that time, his intraocular pressures were low. Based on his eye exam yesterday it would not appear that his symptoms are related to his intraocular pressure, however it is noted that the patient had recently been placed on 2 eyedrops Alphagan as well as timolol. The patient had already discontinued the Alphagan as of yesterday. He remains on timolol. To involve course may be contributing with causing her to be bradycardic, however when the patient was symptomatic from diaphoresis standpoint yesterday sinus tachycardia 110 bpm was present. For now, we will hold off on Alphagan, continue timolol, patient's prior to hospital dose of metoprolol has been placed on hold. Continue monitor on telemetry for additional potential arrhythmias. Results & Data Vital Signs (Past 12 Hours) Vital Signs Temp Pulse Pulse Pulse Resp BP BP 03/31/19 14:37 61 23 100/61 03/31/19 14:32 62 24 112/62 03/31/19 14:27 67 22 101/45 L 03/31/19 14:22 54 L 16 111/65 03/31/19 14:17 62 14 95/56 L 03/31/19 14:12 54 L 16 99/55 L 03/31/19 14:07 54 L 14 94/53 L 03/31/19 14:02 53 L 19 104/57 L 03/31/19 13:57 66 18 95/66 L 03/31/19 13:52 51 L 16 118/62 03/31/19 13:47 51 L 18 110/67 03/31/19 13:42 56 L 17 104/64 03/31/19 13:37 57 L 16 103/56 L 03/31/19 13:32 51 L 14 101/60 03/31/19 13:27 51 L 14 96/56 L 03/31/19 13:22 52 L 19 86/50 L 03/31/19 13:17 55 L 20 96/59 L 03/31/19 13:12 54 L 18 89/50 L 03/31/19 13:08 54 L 17 84/48 L 03/31/19 13:02 51 L 13 104/58 L 03/31/19 13:01 52 L 16 117/65 03/31/19 13:00 51 L 18 90/59 L 03/31/19 12:54 61 18 64/28 L 03/31/19 12:47 57 L 18 85/46 L 03/31/19 12:44 63 20 75/43 L 03/31/19 12:39 63 23 86/46 L 03/31/19 12:37 19 03/31/19 10:28 49 L 03/31/19 09:30 78 03/31/19 09:00 88 03/31/19 08:30 73 03/31/19 08:00 71 03/31/19 07:33 36.3 C L 76 17 03/31/19 07:30 75 03/31/19 07:00 71 03/31/19 03:51 36.6 C 72 18 115/77 BP Pulse Ox 03/31/19 14:37 96 03/31/19 14:32 03/31/19 14:27 96 03/31/19 14:22 100 03/31/19 14:17 03/31/19 14:12 93 03/31/19 14:07 94 03/31/19 14:02 100 03/31/19 13:57 100 03/31/19 13:52 100 03/31/19 13:47 03/31/19 13:42 100 03/31/19 13:37 03/31/19 13:32 100 03/31/19 13:27 100 03/31/19 13:22 98 03/31/19 13:17 100 03/31/19 13:12 03/31/19 13:08 03/31/19 13:02 100 03/31/19 13:01 100 03/31/19 13:00 100 03/31/19 12:54 97 03/31/19 12:47 100 03/31/19 12:44 03/31/19 12:39 03/31/19 12:37 03/31/19 10:28 03/31/19 09:30 03/31/19 09:00 03/31/19 08:30 03/31/19 08:00 03/31/19 07:33 132/85 98 03/31/19 07:30 03/31/19 07:00 03/31/19 03:51 97
[2019-03-31] MEDS: ACETAMINOPHEN 325 MG TAB PO PRN (18:19)
[2019-03-31] MEDS: MONTELUKAST SODIUM 10 MG TABLET PO SCH (20:40)
[2019-03-31] MEDS: ROSUVASTATIN CALCIUM 20 MG TAB PO SCH (20:40)
[2019-03-31] MEDS: ASCORBIC ACID 500 MG TAB PO SCH (20:41)
--- NOTE | 2019-03-31 21:53 | Ultrasound Report ---
CAROTID ARTERY ULTRASOUND CLINICAL HISTORY: syncope COMPARISON STUDY: Carotid ultrasound July 09, 2009. TECHNIQUE: Real-time, grayscale, and color Doppler sonography of the carotid and vertebral arteries w as performed. Images were viewed in the transverse and longitudinal planes. FINDINGS: There is extensive atherosclerotic plaque present within the distal left common carotid artery and pr oximal left internal carotid artery with moderate plaque within the proximal right internal carotid a rtery. Velocity measurements are listed below. COMMON CAROTID PEAK SYSTOLIC VELOCITY (CM/S): RIGHT 122 LEFT 120 ICA PEAK SYSTOLIC VELOCITY (CM/S): RIGHT 89 LEFT 245 Systolic ratio between the left internal to common carotid artery is elevated at 2. Antegrade flow is seen in the vertebral arteries. The external carotid arteries are patent. Elevated peak systolic velocity of 190 cm/s within the proximal left external carotid artery was noted. IMPRESSION: 1. Sonographic findings suggestive of greater than 70% stenosis of the proximal left internal carotid artery. 2. Moderate plaque within the proximal right internal carotid artery without evidence for stenosis. 3. Findings suggestive of a stenosis within the proximal left external carotid artery. Electronically signed by: Dexter Ibarra M.D. 03/31/2019 9:51 PM
[2019-04-01] MEDS: NOREPINEPHRINE BIT INJ 8 MG in DEXTROSE 5% 500 ML IV SCH ×2 (02:30→09:41)
[2019-04-01 04:49] LABS: Hemoglobin 9.3 g/dL (14.0-18.0); Mean Corpuscular Hgb Conc 34.4 g/dL (32-36); Mean Corpuscular Volume 88.2 fL (80-100); Mean Platelet Volume 11.1 fL (7.4-10.4); Platelet Count 201 K/uL (130-400); RDW Coefficient of Variation 15.1 % (11.5-14.5); RDW Standard Deviation 48.1 fL (36.4-46.3); Red Blood Count 3.06 M/uL (4.7-6.1); White Blood Count 9.07 K/uL (4.8-10.8)
[2019-04-01 05:12] LABS: Albumin Level 3.2 gm/dl (3.4-5.0); BUN Creatinine Ratio 31.4 (10-20); Bilirubin Direct 0.2 mg/dl (0-0.2); Calcium 8.1 mg/dl (8.5-10.1); Est GFR (African American) 58.7; Est GFR (Non-African American) 50.6; Magnesium 2.3 mg/dl (1.8-2.4); Potassium 3.6 mmol/L (3.5-5.1)
[2019-04-01 05:25] LABS: Albumin Globulin Ratio 1.1 (0.9-2); Bilirubin,Total 0.5 mg/dl (0.2-1); Globulin 2.9 gm/dl (2.5-4.0); Total Protein 6.1 gm/dl (6.4-8.2); Troponin I 0.302 ng/ml (0-0.045)
[2019-04-01] MEDS: CLOPIDOGREL BISULFATE 75 MG TAB PO SCH (08:11)
[2019-04-01] MEDS: ASPIRIN 81 MG ECTAB PO SCH (08:11)
--- NOTE | 2019-04-01 09:17 | Cardiology Progress Note ---
Date of Service April 01, 2019 Assessment & Plan (1) Unstable angina pectoris: EKG improved. No symptoms suggestive of angina overnight last night or thus far this morning. No significant arrhythmias. Troponin however is mildly elevated to the range of 0.302 NG per mL with previous measurements prior to his cardiac catheterization yesterday having been within normal limits. The patient has had ongoing hypotension since he was in the cardiac catheterization laboratory for which she is required low-dose Levophed treatment. Right heart catheterization yesterday revealed suggestion of volume depletion and therefore he is received 3.6 L of fluid in the last 24 hours. Cardiac outputs were within normal limits, despite noted decline in his ejection fraction on echocardiogram. No definite clear culprit in terms of his anginal symptoms on coronary angiography yesterday. The new occlusion of the proximal portion of the LAD diagonal system appears to be chronic by angiography appearance. -We will keep patient n.p.o. and titrate off Levophed. If ongoing hypotension despite fluids, will consider reinvestigation of his intermediate PDA lesion noted yesterday. Continue aspirin plus clopidogrel, antihypertensives on hold. (2) Ischemic cardiomyopathy: Patient with findings of circumflex territory scar on echocardiogram, the anterior septum however in the lateral wall are hypokinetic on the current echocardiogram new compared to 2014. Depending upon the view his ejection fraction appears to be within the range of 30 to 40%. 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 With an attached, sinus rhythm at 60 bpm was noted, with systolic blood pressure above 100 on vital signs and glucose that was 150 mg. Based on hypotension that is been observed in the meantime, this is likely hypotensive episode. After he regained consciousness, he had diaphoresis. Continue to monitor. No arrhythmia noted thus far. (4) CVA (cerebral vascular accident): History of past stroke episodes. Has progressive carotid occlusive disease. I do not think this explains his presenting symptoms, but will need to be reassessed after his cardiac work-up is complete. Hold off on CT angiogram of the carotids for now, given need for potential additional contrast further studies. Subjective Chief complaint: Follow-up heavy perspiration, shortness of breath, syncope Subjective: Patient seen and examined today in room 102 of the ICU. His son and spouse are at the bedside with him. He feels well at present. His right eye visual impairment is stable and unchanged. He denies headache. No additional episodes of diaphoresis. He remains however on low-dose Levophed through his peripheral IV to maintain a systolic blood pressure over 100 mmHg. Telemetry reveals stable sinus bradycardia and sinus rhythm in the 50 to 60 bpm range without significant tachycardia or bradycardia arrhythmia. Physical Exam Physical Exam: General: no acute distress and stated age Eyes: conjunctiva are pink and non-injected, sclera clear Neck: normal jugular venous pulse, no hepatojugular reflux Chest: normal shape and normal respiratory effort Lungs: clear to auscultation and percussion Cardiac Exam: - regular heart sounds, no murmurs, rubs, or gallops, no jugular venous distention Abdomen: abdomen soft, non-tender, no abnormal masses and no hepatosplenomegaly Extremities: no edema and no cyanosis Neuro:awake, coversant, follows commands, no focal motor deficits Psych: appropriate affect and insight. Results & Data Vital Signs (Past 12 Hours) Vital Signs Temp Pulse Pulse Resp BP BP BP 04/01/19 06:00 66 20 105/48 L 04/01/19 05:00 61 16 119/60 04/01/19 04:00 36.8 C 64 18 100/50 L 04/01/19 03:00 55 L 12 105/40 L 04/01/19 02:00 55 L 12 93/44 L 04/01/19 01:00 57 L 12 90/43 L 04/01/19 00:00 36.8 C 55 L 12 80/37 L 03/31/19 22:31 60 16 107/54 L 03/31/19 22:30 67 13 03/31/19 22:16 64 15 110/50 L 03/31/19 22:06 03/31/19 22:05 94/52 L 03/31/19 22:04 56 L 15 88/42 L 03/31/19 21:46 56 L 18 93/38 L 03/31/19 21:31 62 22 100/52 L 03/31/19 21:30 65 18 03/31/19 21:16 64 20 96/51 L Pulse Ox 04/01/19 06:00 98 04/01/19 05:00 94 04/01/19 04:00 98 04/01/19 03:00 94 04/01/19 02:00 98 05/08/19 01:00 94 04/01/19 00:00 97 03/31/19 22:31 96 03/31/19 22:30 97 03/31/19 22:16 98 03/31/19 22:06 99 03/31/19 22:05 03/31/19 22:04 03/31/19 21:46 97 03/31/19 21:31 98 03/31/19 21:30 97 03/31/19 21:16 97 Laboratory Results Cardiac Enzymes 04/01/19 Range/Units 04:11 AST 16 (15-37) U/L Troponin I 0.302 H* (0-0.045) ng/ml CBC 04/01/19 Range/Units 04:11 WBC 9.07 (4.8-10.8) K/uL RBC 3.06 L (4.7-6.1) M/uL Hgb 9.3 L (14.0-18.0) g/dL Hct 27.0 L (42-52) % Plt Count 201 (130-400) K/uL Comprehensive Metabolic Panel 04/01/19 Range/Units 04:11 Sodium 140 (136-145) mmol/L Potassium 3.6 (3.5-5.1) mmol/L Chloride 113 H (98-107) mmol/L Carbon Dioxide 24 (21-32) mmol/L BUN 44 H (7-18) mg/dl Creatinine 1.39 (0.6-1.4) mg/dl Glucose 145 H (70-99) mg/dl Calcium 8.1 L (8.5-10.1) mg/dl Direct Bilirubin 0.2 (0-0.2) mg/dl AST 16 (15-37) U/L ALT 21 (12-78) U/L Alkaline Phosphatase 56 (45-117) U/L Total Protein 6.1 L (6.4-8.2) gm/dl Albumin 3.2 L (3.4-5.0) gm/dl Intake and Output 03/31/19 04/01/19 04/01/19 22:59 06:59 14:59 Intake Total 3267.12 / 3681.20 414.08 / 3681.20 173.833 / 173.833 Output Total 400 / 1600 1200 / 1600 Balance 2867.12 / 2081.20 -785.92 / 2081.20 173.833 / 173.833 Intake: IV 2287.12 / 2701.20 414.08 / 2701.20 123.833 / 123.833 Levophed Inj 8 mg In D5w 500 ml 287.12 / 701.20 414.08 / 701.20 123.833 / 123.833 @ 0.06 MCG/KG/MIN 25.74 mls/hr IV .[id number] [facility] Rx#:[id number] Normosol-R 1,000 ml @ 999 mls/ 1000 / 1000 hr IV .Q1H1M ONE Rx#:[id number] Nss 1000ML 1,000 ml @ 150 mls/ 1000 / 1000 hr IV .Q6H40M [facility] Rx#:[id number] Oral 980 / 980 0 / 980 50 / 50 Output: Urine 400 / 1600 1200 / 1600 Other: # Unmeasured Voids 1 Weight 112.6 kg 113.5 kg Diagnostic Findings EKG performed 04/01/2019 revealed sinus rhythm at 63 bpm with very mild nonspecific repolarization changes most notably in the high lateral leads from 1 and aVL. Carotid duplex performed 03/31/2019 revealed sonographic findings suggestive of greater than 70% stenosis in the proximal left internal carotid artery.
[2019-04-01] MEDS: INSULIN ASPART 100 UNITS/ML 3 ML PEN SC SCH ×4 (09:40→20:18)
--- NOTE | 2019-04-01 10:56 | Critical Care Progress Note ---
Date of Service April 01, 2019 Assessment & Plan (1) Unresponsive episode: Reason Critically Ill: Tulio is a 73-year-old male with a past medical history of CABG x2, coronary artery disease, Amie fundoplication, a single episode of A. fib, multiple TIA/CVA on dual antiplatelet therapy, type 2 diabetes [id number], hypertension, and dyslipidemia who presented to the hospital with 1 to 2 days of shortness of breath worsened with minimal exertion, chest heaviness, and diaphoresis. He has been admitted to ICU for care following hypotension and bradycardia S/P cardiac catheterization requiring pressor support. Neuro - [facility] ICU: Negative CVA/TIA: History of multiple TIA/CVA with no ongoing strength deficits, but some chronic memory deficits. On dual antiplatelet therapy with aspirin and Plavix, no recent events. 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 Continue aspirin and Plavix Bilateral carotid Doppler shows left ICA 70% stenosis increased from his last Doppler in 2008. Given his extensive vascular disease he may be having contributing elements of autonomic instability. Recommend CT angiogram of the brain to further characterize intracranial vascular disease, however we will de lay this as he is pending a possible cardiac cath I do not want to give him an excess contrast load. Cardiac - Unresponsive event Following completion of an echo in the CP lab he had an episode of unresponsiveness and a code purple was called. Was not on telemetry at this time but had normal glucose and did not show any signs of seizure activity.. Given concern based on reported decrease in LVEF from 50 to 55% in 2013 to 30% on echo, T wave inversions in leads I, 2, aVL he was taken immediately for cardiac catheterization which showed worsening disease compared to his last cath but with a widely patent LAD graft and no acute changes. Right heart cath showed preserved flow with diminished filling pressure. Given these findings he likely has chronic underlying cardiac disease progression with a vascular or less likely neurogenic origin for his symptoms. Troponins negative. - Bilateral doppler as above. Hold on CT-A until cardiac work-up complete. Case under discussion with Dr. Gann and Dr. Luna. His case is being reviewed and he may have a repeat cath this afternoon if he is hemodynamically stable for potential PCI given his possible interval decrease in cardiac functio n. Required norepinephrine overnight, progressively weaned down and stopped at 0940 hours. Blood pressure currently 109/59. History of ID status post CABG x2, CAD - On DAPT Plavix/ASA - Hold metoprolol for hypotension - Hold lisinopril for hypotension - Rosuvastatin 40mg daily - Imdur 30mg qAM Respiratory - Shortness of breath without hypoxia - Normal appearing CXR without consolidation or fluid - Low suspicion for PNA - No signs of fluid overload - Sats adequate on room air. GI - N.p.o. pending interventional cardiology RENAL/LYTES - No sodium, potassium derangement Creatinine 1.39 today, no indication of MCKENZIE at this time Replace lytes as needed. - No concerns at this time. ENDO - T2DM non on exogenous insulin on metformin monotherapy RESIDENT INTERN - Last A1C <8% - [facility] ICU protocol. Glucose control adequate. Glucose 150 after code purple above. HEME - Hemoglobin 9.3 today. Continue to follow. Chronic normocytic anemia No indication for transfusion at this time. No leukocytosis. ID - No concerns for infection at this point. INTEGUMENTARY - No concerns at this time. LINES/IV ACCESS - PIVs intact. DVT PROPHYLAXIS - Heparin held in setting of recent eye injury and possible cardiac intervention. DAPT, SCDs. Thank you for allowing us to be part of this patient's care. Please refer to Dr. Gross's documentation for any further recommendations. Supervising Physician Co-Signing Physician Notes Dr. Garcia was resident physician during care of patient. I separately evaluated patient for peraza portions of the history and the exam. I was present during the critical portion of medical decision making, and I discussed the case with the resident. I generally agree with the findings and plan. Neuro: Patient has extracranial peripheral vascular disease that could possibly contribute to aspects of what could be described as dysautonomia. No lesion would be intervene herbal at this time while patient is still requiring vasoactive medication for blood pressure support. Patient has history concerning for microvascular disease, will obtain imaging of intracranial vessels when appropriate, we will defer till after cardiac catheterization Cardiovascular:I discussed the case extensively with Dr. Mcdonald, patient May require cardiac cath with possible intervention pending trial of cardiac function off vasoactive support. GI: N.p.o. for possible cardiac cath DVT prophylaxis: Currently wearing SCDs Lovenox on hold for possible intervention I have personally spent 40 minutes of critical care time in the direct management of this patient. This is a life/limb threatening event. This includes time spent evaluating patient, direct bedside care, chart review, placing orders, interpretation of diagnostic studies, discussion with consultants, patient, and/or family members regarding treatment decisions, as well as other required patient management activities. This time is exclusive of all separately billable procedures, and teaching time and separate from and in addition to any other critical care service time. Subjective Tulio reports he feels well today. He slept well last night, is hungry; has been kept n.p.o. for possible pending cardiac procedure. He is not having any chest pain, shortness of breath, lightheadedness, dizziness this morning. He reports his vision is sharp today with minimal haziness in the right eye. Has questions regarding the ongoing plan, but knows he is pending further evaluation with c ardiology. No other questions or concerns at time of visit. Review of Systems Review of Systems: Constitutional: Denies fever, chills, malaise, weight change Eyes: Endorses vision change, denies flashers reports visual acuity is intact but with a slight hazy quality. Improved from yesterday. ENT: Denies ear pain, sore throat Cardiovascular: Denies Chest pain and 'chest discomfort' today. Denies chest pressure, palpitations, extremity swelling Respiratory: Endorses shortness of breath, denies cough, sputum production, difficulty breathing Gastrointestinal: Denies abdominal pain, nausea, vomiting, constipation, diarrhea today. Genitourinary: Denies pain with urination Musculoskeletal: Denies weakness, muscle aches/pain, joint aches/pain Integumentary:Denies rash, lesions, bruising Neurological: Endorses some neuropathy at baseline without pain/complete numbness. Denies headache, focal weakness. Physical Exam Physical Exam: General: A&Ox3. NAD. Cooperative. HEENT: Atraumatic, normocephalic. Pulm: CTAB A&P. -wheezes, -rales, -rhonchi. Symmetrical chest rise. No increase work of breathing. No respiratory distress. Cardiac: RRR, -mrg. Radial pulses intact and symmetrical. Abdominal: Nontender, nondistended, soft. BS present. Neuro: Speech: Fluent, no dysarthria, naming/comprehension intact without word finding difficulty Cranial nerve: Pupils equal and reactive to light bilaterally, visual acuity grossly intact, no field cuts. EOM intact without gaze preference, no facial asymmetry, hearing grossly intact Motor: 5 out of 5 strength to finger flexion/extension/interosseous, wrist flexi on/extension, elbow flexion/extension, shoulder flexion, ankle dorsiflexion/plantarflexion, hip flexion bilaterally Sensory: Sensation intact to soft touch in distal extremities without deficit. No clonus Cerebellar: Normal [id number], kwbl-mb-rasc without tremor or dysmetria. No dysdiadochokinesia. Finger tap test reveals motor slowing of the left compared to the right with consistent rhythm. Results & Data Vital Signs (Past 12 Hours) Vital Signs Temp Pulse Pulse Resp BP BP BP 04/01/19 06:00 66 20 105/48 L 04/01/19 05:00 61 16 119/60 04/01/19 04:00 36.8 C 64 18 100/50 L 04/01/19 03:00 55 L 12 105/40 L 04/01/19 02:00 55 L 12 93/44 L 04/01/19 01:00 57 L 12 90/43 L 04/01/19 00:00 36.8 C 55 L 12 80/37 L 03/31/19 22:31 60 16 107/54 L 03/31/19 22:30 67 13 03/31/19 22:16 64 15 110/50 L 03/31/19 22:06 03/31/19 22:05 94/52 L 03/31/19 22:04 56 L 15 88/42 L 03/31/19 21:46 56 L 18 93/38 L 03/31/19 21:31 62 22 100/52 L 03/31/19 21:30 65 18 03/31/19 21:16 64 20 96/51 L 03/31/19 21:01 59 L 12 97/53 L 03/31/19 21:00 54 L 17 03/31/19 20:47 57 L 25 H 03/31/19 20:46 64 20 124/61 03/31/19 20:30 54 L 16 112/60 03/31/19 20:16 58 L 19 101/58 L 03/31/19 20:01 36.9 C 58 L 14 100/50 L 03/31/19 20:00 58 L 23 03/31/19 19:53 59 L 03/31/19 19:46 61 17 102/50 L 03/31/19 19:30 60 15 03/31/19 19:27 61 13 126/49 L 03/31/19 19:01 55 L 16 03/31/19 19:00 58 L 17 110/60 03/31/19 18:45 57 L 24 105/55 L Pulse Ox 04/01/19 06:00 98 04/01/19 05:00 94 04/01/19 04:00 98 04/01/19 03:00 94 04/01/19 02:00 98 04/01/19 01:00 94 04/01/19 00:00 97 03/31/19 22:31 96 03/31/19 22:30 97 03/31/19 22:16 98 03/31/19 22:06 99 03/31/19 22:05 03/31/19 22:04 03/31/19 21:46 97 03/31/19 21:31 98 03/31/19 21:30 97 03/31/19 21:16 97 03/31/19 21:01 95 03/31/19 21:00 98 03/31/19 20:47 98 03/31/19 20:46 98 03/31/19 20:30 98 03/31/19 20:16 99 03/31/19 20:01 99 03/31/19 20:00 100 03/31/19 19:53 03/31/19 19:46 98 03/31/19 19:30 96 03/31/19 19:27 100 03/31/19 19:01 99 03/31/19 19:00 100 03/31/19 18:45 99 Resident Activity Tracking Resident Involvement: Resident Care Provided Care Provided: Adult Hospital Medicine
[2019-04-01] MEDS: GABAPENTIN 600 MG TAB PO SCH ×5 (13:00→20:37)
[2019-04-01] MEDS: TIMOLOL MALEATE 0.5% OP SOLN 5 ML BTL OP SCH (13:24)
[2019-04-01] MEDS: PYRIDOXINE HCL 50 MG TAB PO SCH (13:41)
[2019-04-01] MEDS: TAMSULOSIN HCL 0.4 MG CAP PO SCH (13:42)
[2019-04-01] MEDS ORDERED: MIDAZOLAM HCL 1 MG/ML 2ML VIAL ONE (14:26)
[2019-04-01] MEDS ORDERED: HEPARIN (PORCINE) 1000 UNIT/ML 10 ML (CATH LAB USE ONLY) ONE ×3 (14:26→16:12)
[2019-04-01] MEDS ORDERED: fentaNYL citrate 100 MCG/2 ML VIAL ONE (14:26)
[2019-04-01] MEDS ORDERED: NITROGLYCERIN/D5W 100MCG/ML 20ML SYR ONE (14:27)
[2019-04-01] MEDS ORDERED: NiCARDipine HCL INJ 2.5 MG/ML 10 ML AMP ONE (14:27)
[2019-04-01] MEDS ORDERED: NOREPINEPHRINE BITARTRATE 1 MG/ML 4 ML VIAL (CATH LAB USE ONLY) ONE (15:20)
[2019-04-01] MEDS ORDERED: CLOPIDOGREL BISULFATE 300 MG TAB ONE (16:20)
--- NOTE | 2019-04-01 16:32 | Post Anesthesia Assessment ---
Date of Service April 01, 2019 Post Sedation Assessment Vital Signs Temp Pulse Pulse Resp BP BP BP 04/01/19 14:01 66 16 106/67 04/01/19 13:30 64 17 109/66 04/01/19 13:00 65 10 L 104/68 04/01/19 12:30 65 13 105/63 04/01/19 12:00 36.8 C 63 14 107/57 L 04/01/19 11:30 67 11 L 101/64 04/01/19 11:00 65 15 106/63 04/01/19 10:45 66 19 108/72 04/01/19 10:30 68 10 L 103/65 04/01/19 10:15 64 6 L 109/59 L 04/01/19 10:00 65 7 L 100/62 04/01/19 09:45 70 18 104/62 04/01/19 09:40 71 17 113/62 04/01/19 09:33 71 25 H 113/62 04/01/19 09:18 97 H 17 101/60 04/01/19 09:16 76 14 103/77 04/01/19 09:01 68 21 133/70 04/01/19 08:31 65 9 L 128/67 04/01/19 08:27 65 14 136/68 04/01/19 08:01 65 11 L 139/69 04/01/19 07:01 61 14 04/01/19 06:00 66 20 105/48 L 04/01/19 05:00 61 16 119/60 04/01/19 04:00 36.8 C 64 18 100/50 L 04/01/19 03:00 55 L 12 105/40 L 04/01/19 02:00 55 L 12 93/44 L 04/01/19 01:00 57 L 12 90/43 L 04/01/19 00:00 36.8 C 55 L 12 80/37 L 03/31/19 22:31 60 16 107/54 L 03/31/19 22:30 67 13 03/31/19 22:16 64 15 110/50 L 03/31/19 22:06 03/31/19 22:05 94/52 L 03/31/19 22:04 56 L 15 88/42 L 03/31/19 21:46 56 L 18 93/38 L 03/31/19 21:31 62 22 100/52 L 03/31/19 21:30 65 18 03/31/19 21:16 64 20 96/51 L 03/31/19 21:01 59 L 12 97/53 L 03/31/19 21:00 54 L 17 03/31/19 20:47 57 L 25 H 03/31/19 20:46 64 20 124/61 03/31/19 20:30 54 L 16 112/60 03/31/19 20:16 58 L 19 101/58 L 03/31/19 20:01 36.9 C 58 L 14 100/50 L 03/31/19 20:00 58 L 23 03/31/19 19:53 59 L 03/31/19 19:46 61 17 102/50 L 03/31/19 19:30 60 15 03/31/19 19:27 61 13 126/49 L 03/31/19 19:01 55 L 16 03/31/19 19:00 58 L 17 110/60 03/31/19 18:45 57 L 24 105/55 L 03/31/19 18:30 55 L 13 99/52 L 03/31/19 18:16 64 17 101/48 L 03/31/19 18:00 53 L 15 98/50 L 03/31/19 17:54 56 L 16 83/49 L 03/31/19 17:30 60 8 L 90/50 L 03/31/19 17:27 61 16 85/45 L 03/31/19 17:17 65 23 122/58 L 03/31/19 17:00 58 L 16 03/31/19 16:57 56 L 18 99/52 L 03/31/19 16:52 61 23 103/57 L 03/31/19 16:47 63 29 H 106/63 03/31/19 16:43 60 17 97/64 L 03/31/19 16:37 64 21 91/56 L 03/31/19 16:32 61 17 99/49 L Pulse Ox 04/01/19 14:01 99 04/01/19 13:30 99 04/01/19 13:00 97 04/01/19 12:30 100 04/01/19 12:00 99 04/01/19 11:30 98 04/01/19 11:00 98 04/01/19 10:45 99 04/01/19 10:30 96 04/01/19 10:15 98 04/01/19 10:00 98 04/01/19 09:45 96 04/01/19 09:40 97 04/01/19 09:33 98 04/01/19 09:18 04/01/19 09:16 04/01/19 09:01 99 04/01/19 08:31 99 04/01/19 08:27 98 04/01/19 08:01 98 04/01/19 07:01 99 04/01/19 06:00 98 04/01/19 05:00 94 04/01/19 04:00 98 04/01/19 03:00 94 04/01/19 02:00 98 04/01/19 01:00 94 04/01/19 00:00 97 03/31/19 22:31 96 03/31/19 22:30 97 03/31/19 22:16 98 03/31/19 22:06 99 03/31/19 22:05 03/31/19 22:04 03/31/19 21:46 97 03/31/19 21:31 98 03/31/19 21:30 97 03/31/19 21:16 97 03/31/19 21:01 95 03/31/19 21:00 98 03/31/19 20:47 98 03/31/19 20:46 98 03/31/19 20:30 98 03/31/19 20:16 99 03/31/19 20:01 99 03/31/19 20:00 100 03/31/19 19:53 03/31/19 19:46 98 03/31/19 19:30 96 03/31/19 19:27 100 03/31/19 19:01 99 03/31/19 19:00 100 03/31/19 18:45 99 03/31/19 18:30 99 03/31/19 18:16 94 03/31/19 18:00 99 03/31/19 17:54 94 03/31/19 17:30 99 03/31/19 17:27 100 03/31/19 17:17 99 03/31/19 17:00 100 03/31/19 16:57 100 03/31/19 16:52 96 03/31/19 16:47 100 05/07/19 16:43 100 03/31/19 16:37 99 03/31/19 16:32 100 Recovery Score Activity: Moves 4 extremities Respiration: Deep Breath/Cough Circulation: +/-20% PreAnes Value Consciousness: Fully Awake Oxygen Saturation: O2 needed for >90% Discharge Sedation Level of Care: Fast Track Phase II Post Sedation Plan On clinical assessment, the patient appears to have tolerated the sedation without complications. Patient is recovering as anticipated. Patient will continue to be monitored by nursing and may be discharged when sedation discharge criteria are met per below protocol. Upon Completions of procedure and additional 15 minutes continue every 5 minute vital signs and the P.A.R. score; then discharge to a Phase I or Fast Track to Phase II per the following guidelines: * Discharge Patient to appropriate Phase II area if PAR is 8 or greater or return to pre- procedure baseline. The post - procedure orders will be as directed. * If PAR score is less than 8 or not return to pre-procedure baseline then patient will follow Phase I monitoring till PAR is reached for Phase II. The Phase I may be done in procedure room or may call to secure a Phase I area. * If naloxone or flumazenil are used for reversal, hold in Phase I for continued monitoring from when last reversal dose was given for a minimum of 60 minutes or longer pending the nurse and/or physician discretion of patient condition before discharge to Phase II. Please call the Sedation Physician to re-evaluate and complete post-note for discharge to Phase II area. Do NOT discharge from procedure sedation or Phase 1 until post- sedation evaluation note is complete by procedure /sedation MD Sedation Discharge Instructions to be given to the patient at discharge to home.
--- NOTE | 2019-04-01 16:41 | Cardiac Catheterization ---
Cardiac Cath Procedure Full Procedure Date April 01, 2019 Pre-Procedure Diagnosis Pre-Procedure Diagnosis: Acute Coronary Syndrome AUC Score AUC Score: 8 Post-Procedure Diagnosis Post-Procedure Diagnosis: Severe CAD Procedure(s) Performed Procedure(s) Performed: Coronary Angiography and Drug Eluting Stent Catalyst Concentration Operator Steven Luna MD Compressor Stations Superintendent(s) Michael Estimated Blood Loss Estimated Blood Loss: 10 Medication(s) Medication(s): Clopidogrel, Fentanyl, Heparin, Lidocaine 1%, Nicardipine, Nitroglycerin and Versed Summary of Findings Indication: Suspected unstable angina, coronary artery disease Access: 6Fr right radial artery Catheters: AR1 guide Findings: For full details of patient's coronary angiography please see cath report dictated from 03/31/2019. Briefly patient thought to have moderate to severe distal RCA disease and decision to bring back patient for further assessment and possible PCI. Procedure: RCA cannulated with AR-1 guide BMW wire placed into right PLB IVUS used to assess extent of disease, unable to pass IVUS across distal lesion after PDA. Noted to have severe 60 to 70% disease in the distal RCA and mid segment. Vessel moderately calcified. Decision to proceed with PCI of distal RCA. RCA dilated with 2.5 compliant balloon 2.5 x 22 mm [place] drug-eluting stent placed to distal RCA across PDA and right PAV lesion. Stent post dilated with stent balloon Post procedure noted to have severe disease in mid segment Mid RCA stented with 3.0 x 26 mm Bart Postdilated with stent balloon IC vasodilators administered for vasospasm Post procedure angiography revealed well-expanded stents, RANDY-3 flow and no apparent coronary complications. Summary: 1. Successful PCI of mid and distal RCA/PAV with 2 drug-eluting stents (mid 3.0 x 26, distal 2.5 x 22 [place]). 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 Cardiac Status Clinical evaluation leading to the procedure CAD Presenation: Unstable angina Anginal Classification: CCS III Heart Failure: No Cardiogenic Shock within 24 Hours: No Cardiac Arrest within 24 Hours: No Imaging Studies Past 6 Months: Yes Stress Studies Past 6 Months: No Diagnostic Physicians Name: Steven Luna MD Status: Elective Closure Device Percutaneous Entry Location: Radial Closure Device: Radial Band Recommendations: Medical Therapy and/or Counseling PCI Indication: Unstable Angina Lesion Segment Name: distal RCA Culprit Artery: Yes Stenosis Prior to Rx (%): 70 Chronic Total Occlusion: No IVUS: Yes FFR: No Pre-Procedure RANDY Flow: 3 Previously Treated Lesion: No Lesion Complexity: High/C Lesion Length (mm): 15 Thrombus Present: No Bifurcation Lesion: Yes Guidewire Across Lesion: Stenosis Post-Procedure (%): 0 Post-Procedure RANDY Flow: 3 Devices(s) Deployed: Yes Yes Intraprocedure Events Significant Disection: No Perforation: No
--- NOTE | 2019-04-01 17:13 | Hospitalist Progress Note ---
Date of Service April 01, 2019 Assessment & Plan (1) Chest pain: (2) Coronary artery disease: Unstable angina pectoris H/O CAD S/P CABG S/P Cardiac Cath: Successful PCI of mid and distal RCA/PAV with 2 drug-eluting stents Continue aspirin, Plavix, Crestor Currently Off pressors Appreciate Cardiology/ICU team Input Received IV fluids for Hypotension Not BB; Held CIRO, Imdur due to hypotension Ischemic Cardiomyopathy EF: 30-40% Unresponsive Episode H/O CVA Progressive Carotid Artery disease May need further evaluation and Vascular surgery follow up as outpatient Continue Aspirin, Plavix, Statins Telemetry monitoring (3) Diabetes mellitus, type 2: Hgb A1c 6.1 02/2019 Hold oral agents Utilize NovoLog per protocol while hospitalized (4) Hypertension: Isosorbide and lisinopril, held (5) CVA (cerebral vascular accident): (6) TIA (transient ischemic attack): Continue aspirin, Plavix, statin (7) DVT prophylaxis: SCDs for now Code Status: Full Code Subjective Patient is seen and examined at bedside He is off pressors this morning Offers no complaints Denies chest pain, shortness of breath, dizziness, abdominal pain Family at bedside Discussed with primary products inspectors today. Review of Systems Review of Systems: All systems reviewed & are unremarkable except as noted in HPI & below Physical Exam Physical Exam: Physical Exam: Vitals signs as noted above General Appearance:Moderately built and nourished, no apparent distress Head: normocephalic, Atraumatic Eyes: normal inspection, EOMI Neck: supple, Trachea midline Respiratory/Chest: Normal breath sounds, CTA Cardiovascular: S1, S2, No murmur Abdomen/GI:Soft, Non tender, Bowel sounds present Extremities/Musculoskelatal:normal inspection, no edema Neurologic/Psych:AAOX3, grossly no focal neurological deficits Skin: normal color, warm Results & Data Vital Signs (Past 12 Hours) Vital Signs Temp Pulse Pulse Resp BP BP Pulse Ox 04/01/19 14:01 66 16 106/67 99 04/01/19 13:30 64 17 109/66 99 04/01/19 13:00 65 10 L 104/68 97 04/01/19 12:30 65 13 105/63 100 04/01/19 12:00 36.8 C 63 14 107/57 L 99 04/01/19 11:30 67 11 L 101/64 98 04/01/19 11:00 65 15 106/63 98 04/01/19 10:45 66 19 108/72 99 04/01/19 10:30 68 10 L 103/65 96 04/01/19 10:15 64 6 L 109/59 L 98 04/01/19 10:00 65 7 L 100/62 98 04/01/19 09:45 70 18 104/62 96 04/01/19 09:40 71 17 113/62 97 04/01/19 09:33 71 25 H 113/62 98 04/01/19 09:18 97 H 17 101/60 04/01/19 09:16 76 14 103/77 04/01/19 09:01 68 21 133/70 99 04/01/19 08:31 65 9 L 128/67 99 04/01/19 08:27 65 14 136/68 98 04/01/19 08:01 65 11 L 139/69 98 04/01/19 07:01 61 14 99 04/01/19 06:00 66 20 105/48 L 98 04/01/19 05:00 61 16 119/60 94 Laboratory Results Short CBC 04/01/19 Range/Units 04:11 WBC 9.07 (4.8-10.8) K/uL Hgb 9.3 L (14.0-18.0) g/dL Hct 27.0 L (42-52) % Plt Count 201 (130-400) K/uL BMP 04/01/19 04:11 Sodium 140 Potassium 3.6 Chloride 113 H Carbon Dioxide 24 BUN 44 H Creatinine 1.39 Glucose 145 H Calcium 8.1 L Cardiac Enzymes 04/01/19 Range/Units 04:11 Troponin I 0.302 H* (0-0.045) ng/ml Liver Function 04/01/19 Range/Units 04:11 Total Bilirubin 0.5 (0.2-1) mg/dl Direct Bilirubin 0.2 (0-0.2) mg/dl AST 16 (15-37) U/L ALT 21 (12-78) U/L Alkaline Phosphatase 56 (45-117) U/L Albumin 3.2 L (3.4-5.0) gm/dl
[2019-04-01] MEDS ORDERED: SODIUM CHLORIDE 0.9% 1000ML 1,000 ML IV SCH (17:15)
[2019-04-01] MEDS: ASCORBIC ACID 500 MG TAB PO SCH (20:37)
[2019-04-01] MEDS: ROSUVASTATIN CALCIUM 20 MG TAB PO SCH (20:37)
[2019-04-01] MEDS: MONTELUKAST SODIUM 10 MG TABLET PO SCH (20:38)
[2019-04-02 04:56] LABS: Hematocrit (blood only) 24.1 % (42-52); Hemoglobin 8.5 g/dL (14.0-18.0); Mean Corpuscular Hgb Conc 35.3 g/dL (32-36); Mean Corpuscular Volume 86.1 fL (80-100); Mean Platelet Volume 11.1 fL (7.4-10.4); Platelet Count 155 K/uL (130-400); RDW Coefficient of Variation 14.9 % (11.5-14.5); RDW Standard Deviation 47.4 fL (36.4-46.3); White Blood Count 5.75 K/uL (4.8-10.8)
[2019-04-02 05:48] LABS: BUN Creatinine Ratio 21.3 (10-20); Calcium 8.2 mg/dl (8.5-10.1); Creatinine Clr Calc Pharmacy 78.7 ml/min; Est GFR (African American) 72.3; Est GFR (Non-African American) 62.4; Magnesium 2.2 mg/dl (1.8-2.4); Phosphorus 2.6 mg/dl (2.5-4.9); Potassium 3.9 mmol/L (3.5-5.1); Troponin I 0.365 ng/ml (0-0.045)
[2019-04-02] MEDS: INSULIN ASPART 100 UNITS/ML 3 ML PEN SC SCH ×4 (07:59→20:34)
[2019-04-02] MEDS: ASPIRIN 81 MG ECTAB PO SCH (08:01)
[2019-04-02] MEDS: GABAPENTIN 600 MG TAB PO SCH ×3 (08:02→20:34)
[2019-04-02] MEDS: TIMOLOL MALEATE 0.5% OP SOLN 5 ML BTL OP SCH (08:02)
[2019-04-02] MEDS: CYANOCOBALAMIN 500 MCG TABLET (VITAMIN B-12) PO SCH (08:02)
[2019-04-02] MEDS: CLOPIDOGREL BISULFATE 75 MG TAB PO SCH (08:02)
[2019-04-02] MEDS: TAMSULOSIN HCL 0.4 MG CAP PO SCH (08:02)
--- NOTE | 2019-04-02 08:04 | Cardiology Progress Note ---
Date of Service April 02, 2019 Assessment & Plan (1) NSTEMI (non-ST elevated myocardial infarction): (2) Unresponsive episode: (3) NSVT (nonsustained ventricular tachycardia): (4) Ischemic cardiomyopathy: Patient with asymptomatic 17 beat wesley of nonsustained ventricular tachycardia 04/02/19 at 3:20 am while sleeping. First ventricular arrhythmia noted this admission. Was off the monitor however, when he had a transient loss of consciousness episode in cardiopulmonary, slumping over in wheel chair. LVEF in range of 30-40% on reassessment. New lateral and septal hypokinesis compared to 2014 echo, with chronic inferior / posterior scar unchanged compared to 2014. Cardiac output normal on cath hemodynamics. Patient s/p successful PCI of mid and distal RCA/PAV with 2 drug-eluting stents (mid 3.0 x 26, distal 2.5 x 22 [place]). The RCA lesions did not appear acute, perhaps had angina / ischemia provoked by the stress of recent eye injury. Given CAD, LVEF 30-40% , depending on view (apical 2 chamber motion looks normal, with normal LVEF) other views worse, especially with administration of ultrasound contrast, ischemic event, syncope, and NSVT on monitor, will plan to place Life Vest wearable defibrillator if pt and family agreeable, for 3 months of bridge therapy, then repeat echo, and 2 week Zio, and will assess clinically to determined if permanent AICD indicated, or if things improve post revascularization. Start low dose Beta Katheryn today. Patient previously not on beta katheryn , likely due to low HR at baseline. OK to transfer to PCU, NOT 2 North. Continue ASA, plavix, Rosuvastatin. No ACEI, ARB due to relative low BP earlier this stay. Subjective CC: follow up shortness of breath, heavy perspiration, syncope Subjective: patient feeling well. Recovered from repeat cath well overnight. OOB and eating breakfast in the chair. BP and HR stable. EKG pending. Review of Systems Review of Systems: All systems reviewed & are unremarkable except as noted in HPI & below Physical Exam Constitutional: WD/WN, vitals as above Respiratory: normal respiratory effort, lungs clear to auscultation Cardiovascular: RRR, no murmur, no edema Vessels: no JVD Extremities: no edema R and L radial access sites clean dry and intact. Skin: no rashes, warm and dry Neurologic: moves all extremities; no focal motor deficits conversant Results & Data Vital Signs (Past 12 Hours) Vital Signs Temp Pulse Resp BP Pulse Ox 04/02/19 06:01 63 15 123/78 96 04/02/19 05:00 67 17 106/44 L 99 04/02/19 04:31 67 17 92/44 L 98 04/02/19 04:00 36.9 C 56 L 12 99/54 L 04/02/19 03:30 60 14 122/70 99 04/02/19 03:00 66 12 119/79 98 04/02/19 02:30 63 18 106/61 94 04/02/19 02:01 69 16 123/76 96 04/02/19 01:34 69 5 L 85/54 L 100 04/02/19 01:00 65 16 94/47 L 98 04/02/19 00:30 65 18 118/67 96 04/02/19 00:16 72 13 96/46 L 97 04/02/19 00:03 36.6 C 71 18 83/40 L 96 04/01/19 23:00 76 19 121/56 L 04/01/19 22:58 72 04/01/19 22:00 79 18 116/62 100 04/01/19 21:00 76 19 151/73 H 99 04/01/19 20:00 36.9 C 69 18 138/79 98 Laboratory Results Cardiac Enzymes 04/02/19 Range/Units 04:07 Troponin I 0.365 H* (0-0.045) ng/ml CBC 04/02/19 Range/Units 04:07 WBC 5.75 (4.8-10.8) K/uL RBC 2.80 L (4.7-6.1) M/uL Hgb 8.5 L (14.0-18.0) g/dL Hct 24.1 L (42-52) % Plt Count 155 (130-400) K/uL Comprehensive Metabolic Panel 04/02/19 Range/Units 04:07 Sodium 143 (136-145) mmol/L Potassium 3.9 (3.5-5.1) mmol/L Chloride 113 H (98-107) mmol/L Carbon Dioxide 28 (21-32) mmol/L BUN 25 H (7-18) mg/dl Creatinine 1.17 (0.6-1.4) mg/dl Glucose 92 (70-99) mg/dl Calcium 8.2 L (8.5-10.1) mg/dl Intake and Output 04/01/19 04/02/19 04/02/19 22:59 06:59 14:59 Intake Total 0 / 949.863 750 / 949.863 Output Total 0 / 800 800 / 800 Balance 0 / 149.863 -50 / 149.863 Intake: IV 0 / 899.863 750 / 899.863 Levophed Inj 8 mg In D5w 500 ml 0 / 149.863 @ 0 MCG/KG/MIN IV .Q0M [facility] Rx# :[id number] Nss 1000ML 1,000 ml @ 100 mls/ 750 / 750 hr IV .Q10H [facility] Rx#:[id number] Oral 0 / 50 0 / 50 Output: Urine 0 / 800 800 / 800 Other: # Unmeasured Voids 1 Weight 113.4 kg Diagnostic Findings EKG pending. Medications Administered Current Inpatient Medications Acetaminophen (Tylenol) 650 mg PO Q4H PRN PRN Reason: Pain or Fever Stop: 04/29/19 18:20 Last Admin: 03/31/19 18:19 Dose: 650 mg Documented by: Ascorbic Acid (Vitamin C) 500 mg PO HS [facility] Stop: 04/29/19 20:59 Last Admin: 04/01/19 20:37 Dose: 500 mg Documented by: Aspirin (Ecotrin Ectab) 81 mg PO DAILY [facility] Stop: 04/30/19 08:59 Last Admin: 04/01/19 08:11 Dose: 81 mg Documented by: Clopidogrel Bisulfate (Plavix) 75 mg PO QAM [facility] Stop: 04/30/19 08:59 Last Admin: 04/01/19 08:11 Dose: 75 mg Documented by: Cyanocobalamin (Vitamin B-12) 500 mcg PO SuTuThSa@0900 [facility] Stop: 04/30/19 08:59 Last Admin: 03/31/19 08:12 Dose: 500 mcg Documented by: Dextrose (Dextrose 50%) 25 - 50 ml IV UD PRN; Protocol PRN Reason: Hypoglycemia Protocol Stop: 04/29/19 18:20 Gabapentin (Neurontin) 600 mg PO TID [facility] Stop: 04/29/19 20:59 Last Admin: 04/01/19 20:37 Dose: 600 mg Documented by: Glucagon (Glucagen) 1 mg SQ UD PRN; Protocol PRN Reason: Hypoglycemia Protocol Stop: 04/29/19 18:20 Glucose (Glucose 40%) 15 - 30 gm PO UD PRN; Protocol PRN Reason: Hypoglycemia Protocol Stop: 04/29/19 18:20 Glucose (Dex4 Glucose) 4 - 8 tabs PO UD PRN; Protocol PRN Reason: Hypoglycemia Protocol Stop: 04/29/19 18:20 Insulin Aspart (Novolog Flexpen) 0 units SC ACHS [facility] Stop: 04/29/19 20:59 Last Admin: 04/01/19 20:18 Dose: Not Given Documented by: Isosorbide Mononitrate (Imdur Extended Rel) 30 mg PO QAM [facility] Stop: 04/30/19 08:59 Last Admin: 03/31/19 08:09 Dose: 30 mg Documented by: Lisinopril (Zestril) 5 mg PO DAILY [facility] Stop: 04/30/19 08:59 Last Admin: 03/31/19 08:10 Dose: 5 mg Documented by: Metoprolol Tartrate (Lopressor) 12.5 mg PO BID [facility] Stop: 05/02/19 08:59 Miscellaneous (Carbohydrates For Hypoglycemia) 15 - 30 gm PO UD PRN PRN Reason: Hypoglycemia Treatment Stop: 04/29/19 18:20 Miscellaneous (Icu Protocol For Hyperglycemia) 1 ea N/A PRN PRN; Protocol PRN Reason: Hyperglycemia Protocol Stop: 04/02/19 12:35 Montelukast Sodium (Singulair) 10 mg PO PM [facility] Stop: 04/29/19 20:59 Last Admin: 04/01/19 20:38 Dose: 10 mg Documented by: Nitroglycerin (Nitrostat) 0.4 mg SL UD PRN PRN Reason: Chest Pain Stop: 04/29/19 18:20 Pyridoxine HCl (Vitamin B-6) 100 mg PO MoWeFr@0900 [facility] Stop: 05/01/19 08:59 Last Admin: 04/01/19 13:41 Dose: Not Given Documented by: Rosuvastatin Calcium (Crestor) 40 mg PO HS [facility] Stop: 04/29/19 20:59 Last Admin: 04/01/19 20:37 Dose: 40 mg Documented by: Tamsulosin HCl (Flomax) 0.4 mg PO DAILY [facility] Stop: 04/30/19 08:59 Last Admin: 04/01/19 13:42 Dose: Not Given Documented by: Timolol Maleate (Timoptic 0.5% Oph) 1 drops OP DAILY [facility] Stop: 05/01/19 11:14 Last Admin: 04/01/19 13:24 Dose: 1 drops Documented by:
--- NOTE | 2019-04-02 08:05 | Critical Care Progress Note ---
Date of Service April 02, 2019 Assessment & Plan (1) Unresponsive episode: Reason Critically Ill: Tulio is a 73-year-old male with a past medical history of CABG x2, coronary artery disease, Amie fundoplication, a single episode of A. fib, multiple TIA/CVA on dual antiplatelet therapy, type 2 diabetes [id number], hypertension, and dyslipidemia who presented to the hospital with 1 to 2 days of shortness of breath worsened with minimal exertion, chest heaviness, and diaphoresis. He has been admitted to ICU for care following hypotension and bradycardia S/P cardiac catheterization requiring pressor support. He has received PCI with 2X KARLY to his RCA/PAV and has been weaned off of norepinephrine with adequate pressures. Neuro - [facility] ICU: Negative CVA/TIA: History of multiple TIA/CVA with no ongoing strength deficits, but some chronic memory deficits. On dual antiplatelet therapy with aspirin and Plavix, no recent events. MRA and CTA in 2015 showed bilateral MCA, DISEASE CASE MANAGER disease with diffuse cerebellar and cerebral atrophy with multifocal infarct. Continue aspirin and Plavix Bilateral carotid Doppler shows left ICA 70% stenosis increased from his last Doppler in 2008. Given his extensive vascular disease he may be having contributing elements of autonomic instability. Repeat CTA shows no significant flow in either MCA with minimal distal MCA flow suspect secondary to collateralization. Chronic high-grade stenosis and/or occlusion. Intracranial carotids noted to have extensive plaque but without high-grade stenosis bilaterally. No acute pathology was noted. Given his recent stenting and cardiac work-up he is not a candidate for any surgical or vascular interventional stenting at this time, but he will require referral and follow-up with a vascular surgeon regarding his stenosis. Cardiac - Unresponsive event Following completion of an echo in the CP lab he had an episode of unresponsiveness and a code purple was called. Was not on telemetry at this time but had normal glucose and did not show any signs of seizure activity.. Given concern based on reported decrease in LVEF from 50 to 55% in 2013 to 30% on echo, T wave inversions in leads I, II, aVL he was taken immediately for cardiac catheterization which showed worsening disease compared to his last cath but with a widely patent LAD graft and no acute changes. Right heart cath showed preserved flow with diminished filling pressure. He was transferred to the ICU when he became hypotensive, but did well with norepinephrine drip which was weaned and stopped. He returned to cardiac catheterization and had placement of stents as noted below. No repeat episodes of syncope. He had 2 episodes of nonsustained ventricular tachycardia last night, one lasting 4 beats and one lasting 10 beats. Case discussed extensively with Dr. Gann who will be sending him up with a LifeVest. Status post cardiac catheterization with interventional placement of 2 drug- eluting stents to the mid DISEASE CASE MANAGER/BAV. Tolerated procedure well without hypertension or complications. No pain today - Bilateral doppler as above. He has been off norepinephrine support for >24 hours, maintaining adequate blood pressure currently 120/83 with good perfusion. Clinically no chest pain, chest pressure, shortness of breath, or syncope. History of ID status post CABG x2, CAD - On DAPT Plavix/ASA -Metoprolol 12.5 mg p.o. twice daily - Hold INTERVENTIONIST lisinopril at this time - Rosuvastatin 40mg daily -Hold INTERVENTIONIST Imdur 30mg qAM Respiratory - Shortness of breath without hypoxia - Normal appearing CXR without consolidation or fluid - Sats adequate on room air. -No concerns today. GI - Heart healthy diet RENAL/LYTES - No sodium, potassium derangement Creatinine 1.17 today, no signs of MCKENZIE following dye load from catheterization yesterday Replace lytes as needed. - No concerns at this time. ENDO - T2DM non on exogenous insulin on metformin monotherapy INTERVENTIONIST - Last A1C <8% - SSI ICU protocol. Glucose control adequate today. Glucose 150 after code purple above. HEME - Hemoglobin 8.5 today. Continue to follow. Chronic normocytic anemia No indication for transfusion at this time. No leukocytosis. ID - No concerns for infection at this point. INTEGUMENTARY - No concerns at this time. LINES/IV ACCESS - PIVs intact. DVT PROPHYLAXIS - DAPT, SCDs. Mr. Becerra is doing clinically well and is hemodynamically stable. Stable for downgrade from ICU today. Thank you for allowing us to be part of this patient's care. Please refer to Dr. Gross's documentation for any further recommendations. Supervising Physician Co-Signing Physician Notes Dr. Garcia was resident physician during care of patient. I separately evaluated patient for peraza portions of the history and the exam. I was present during the critical portion of medical decision making, and I discussed the case with the resident. I generally agree with the findings and plan. Patient had nonsustained ventricular tachycardia, will be receiving LifeVest, patient stable for downgrade out of ICU to telemetry. Discussed extensively with Dr. Mcdonald Subjective Tulio reports he feels unchanged from yesterday. He had his cardiac cath with placement of two KARLY yesterday, tolerated procedure well. He is not having any chest pain, chest pressure, palpitations, shortness of breath, or weakness tod ay. His vision in his R eye continues to be a little 'cloudy' but with good acuity and sharp lines. Denies eye pain. No lightheadedness/dizziness today. His is not present at bedside this morning, but would like to be called for any updates to the plan. No other questions or concerns at htis time. Review of Systems Review of Systems: Eyes: Endorses vision change (cloudy vision) unchanged from yesterday. Denies flashers reports visual acuity is intact but with a slight hazy quality. Denies eye pain. ENT: Denies ear pain, sore throat Cardiovascular: Denies Chest pain, chest pressure, chest discomfort, palpitations Respiratory: Denies shortness of breath, cough, sputum production, difficulty breathing Gastrointestinal: Denies abdominal pain, nausea, vomiting, constipation, diarrhea today. Genitourinary: Denies pain with urination Musculoskeletal: Denies weakness, muscle aches/pain, joint aches/pain Integumentary:Denies rash, lesions, bruising Neurological: Endorses some neuropathy at baseline without pain/complete numbness. Denies headache, focal weakness. Physical Exam Physical Exam: General: A&Ox3. NAD. Cooperative. HEENT: Atraumatic, normocephalic. Pulm: CTAB A&P. -wheezes, -rales, -rhonchi. Symmetrical chest rise. No increase work of breathing. No respiratory distress. Cardiac: RRR, -mrg. Radial pulses intact and symmetrical. Abdominal: Nontender, nondistended, soft. BS present. Neuro: Speech: Fluent, no dysarthria, naming/comprehension intact without word finding difficulty Cranial nerve: Pupils equal and reactive to light bilaterally, visual acuity grossly intact, no field cuts. EOM intact without gaze preference, no facial asymmetry, hearing grossly intact Motor: Moving distal extremities equally, no gross motor deficits. Ingredient Scaler Helper strength intact bilaterally. Cerebellar: No tremor. No dysdiadochokinesia. Finger tap test continues to show unchanged motor slowing of the left compared to the right with consistent rhythm. Results & Data Vital Signs (Past 12 Hours) Vital Signs Temp Pulse Resp BP Pulse Ox 04/02/19 06:01 63 15 123/78 96 04/02/19 05:00 67 17 106/44 L 99 04/02/19 04:31 67 17 92/44 L 98 04/02/19 04:00 36.9 C 56 L 12 99/54 L 04/02/19 03:30 60 14 122/70 99 04/02/19 03:00 66 12 119/79 98 04/02/19 02:30 63 18 106/61 94 04/02/19 02:01 69 16 123/76 96 04/02/19 01:34 69 5 L 85/54 L 100 04/02/19 01:00 65 16 94/47 L 98 04/02/19 00:30 65 18 118/67 96 04/02/19 00:16 72 13 96/46 L 97 04/02/19 00:03 36.6 C 71 18 83/40 L 96 04/01/19 23:00 76 19 121/56 L 04/01/19 22:58 72 04/01/19 22:00 79 18 116/62 100 04/01/19 21:00 76 19 151/73 H 99 04/01/19 20:00 36.9 C 69 18 138/79 98 04/01/19 19:00 68 16 123/72 99 Resident Activity Tracking Resident Involvement: Resident Care Provided Care Provided: Adult Hospital Medicine
[2019-04-02] MEDS ORDERED: OPTIRAY 320 125ml IV PRN (09:19)
--- NOTE | 2019-04-02 09:39 | CT Scan Report ---
CT angio head wo/w HISTORY: 73 years-old Male autonomic dysfunction, CVD last eval 2016 acutely altered mental status w ith history of prior stroke COMPARISON: CT head 08/15/2017 TECHNIQUE: CTA of the head was obtained following the intravenous administration of 120 mL Optiray 32 0 IV contrast. 3-D coronal and sagittal MIPS were obtained from the axial data set and were submitted for review. All measurements were obtained according to NASCET criteria. Additional noncontrast CT i mages of the head were also obtained. A dose lowering technique was used consistent with the principa ls of OCTAVIANO. FINDINGS: CT HEAD: Age-related involutional changes. Patchy white matter hypodensities suggest chronic microvascular isc hemic disease. Cerebral vascular calcifications are noted. Remote infarctions redemonstrated about th e left garcia radiata, right occipital, right frontal and left parietal lobes. There is no acute intr acranial hemorrhage, midline shift, abnormal extra-axial collections, acute territorial infarct, hydr ocephalus or intra-axial mass identified. No calvarial fracture. The mastoid air cells and middle ear cavities are clear. Paranasal sinuses are generally clear with only minimal mucosal thickening about the right maxillary and ethmoid air cells . Soft tissues and orbits are unremarkable. Prior bilateral cataract repair. CTA HEAD: Extensive calcified plaque noted about the bilateral petrous, cavernous and clinoid segments without high-grade stenosis identified. There is approximately 50% luminal narrowing noted about the bilatera l communicating segments secondary to underlying calcified plaque. The bilateral anterior cerebral ar teries and anterior communicating artery are widely patent. The bilateral middle cerebral arteries are markedly diminutive without significant flow seen within e ither M1 segment. Mild flow is seen within distal branches of the bilateral middle cerebral arteries, likely secondary to 2 collateral. Moderate calcified plaque about the V3 and V4 segments of the bilateral vertebral arteries without hi gh-grade stenosis. Basilar artery and left posterior cerebral artery are widely patent. Interval veno us sinuses are patent and unremarkable. The right posterior cerebral artery is diminutive without sig nificant flow seen past the mid P1 segment. IMPRESSION: 1. No significant flow identified within either middle cerebral artery with a mild degree of flow se en within the distal branches of the bilateral middle cerebral arteries, likely secondary to collater alization. Findings are suggestive of chronic high-grade stenosis and/or occlusion. 2. Diminutive right P1 without flow seen past the distal right 1 segment suggestive of high-grade sunshine nosis and/or occlusion, also likely chronic. 3. Extensive calcified plaque about the intracranial bilateral internal carotid arteries without high -grade stenosis. 4. No acute intracranial abnormality identified. The above report was generated using voice recognition software. It may contain grammatical, syntax o r spelling errors. Electronically signed by: Archie Dennis M.D. 04/02/2019 9:37 AM
[2019-04-02] MEDS ORDERED: SODIUM CHLORIDE 0.9% 1000ML 1,000 ML IV SCH (09:45)
[2019-04-02] MEDS: METOPROLOL TARTRATE 25 MG TAB PO SCH ×2 (10:45→20:32)
--- NOTE | 2019-04-02 14:32 | Hospitalist Progress Note ---
Date of Service April 02, 2019 Assessment & Plan (1) Chest pain: (2) Coronary artery disease: NSTEMI: POA Cardiogenic Shock H/O CAD S/P CABG S/P Cardiac Cath: Successful PCI of mid and distal RCA/PAV with 2 drug-eluting stents Continue aspirin, Plavix, Crestor Pressors discontinued Appreciate Cardiology/ICU team Input Received IV fluids for Hypotension Held CIRO, Imdur due to hypotension Started on Metoprolol 12.5mg BID NSVT: Asymptomatic Low dose Beta bill Monitor on Tele Ischemic Cardiomyopathy EF: 30-40% New lateral and septal hypokinesis compared and prior unchanged inferior/posterior scar on ECHO Planned to be placed on Life Vest 2 week Zio Patch and repeat ECHO in as per Cards Needs to reassess need for AICD placement as outpatient Unresponsive Episode H/O CVA Progressive Carotid Artery disease --Head CTA: No significant flow identified within either middle cerebral artery with a mild degree of flow seen within the distal branches of the bilateral middle cerebral arteries, likely secondary to collateralization. Findings are suggestive of chronic high-grade stenosis and/or occlusion. Diminutive right P1 without flow seen past the distal right 1 segment suggestive of high-grade stenosis and/or occlusion, also likely chronic. Extensive calcified plaque about the intracranial bilateral internal carotid arteries without high-grade stenosis. No acute intracranial abnormality identified. May need further evaluation and Vascular surgery follow up as outpatient Continue Aspirin, Plavix, Statins Telemetry monitoring (3) Diabetes mellitus, type 2: Hgb A1c 6.1 02/2019 Hold oral agents Utilize NovoLog per protocol while hospitalized (4) Hypertension: Isosorbide and lisinopril, held (5) CVA (cerebral vascular accident): (6) TIA (transient ischemic attack): Continue aspirin, Plavix, statin (7) DVT prophylaxis: SCDs for now Code Status: Full Code Subjective Patient is seen and examined at bedside Feels well No new complaints Had NSVT overnight Discussed with ICU team today Denies chest pain, shortness of breath, dizziness, abdominal pain Family at bedside Review of Systems Review of Systems: All systems reviewed & are unremarkable except as noted in HPI & below Physical Exam Physical Exam: Physical Exam: Vitals signs as noted above General Appearance:Moderately built and nourished, no apparent distress Head: normocephalic, Atraumatic Eyes: normal inspection, EOMI Neck: supple, Trachea midline Respiratory/Chest: Normal breath sounds, CTA Cardiovascular: S1, S2, No murmur Abdomen/GI:Soft, Non tender, Bowel sounds present Extremities/Musculoskelatal:normal inspection, no edema Neurologic/Psych:AAOX3, grossly no focal neurological deficits Skin: normal color, warm Results & Data Vital Signs (Past 12 Hours) Vital Signs Temp Pulse Pulse Resp BP BP Pulse Ox 04/02/19 14:03 36.6 C 61 16 121/65 100 04/02/19 13:50 66 04/02/19 11:00 67 20 04/02/19 10:30 64 19 04/02/19 10:01 71 20 141/88 H 04/02/19 10:00 71 26 H 04/02/19 09:31 71 15 04/02/19 09:30 71 17 125/71 04/02/19 09:19 85 27 H 04/02/19 09:00 79 24 120/83 04/02/19 08:31 83 29 H 04/02/19 08:30 79 19 118/66 04/02/19 08:08 85 17 130/61 04/02/19 08:00 84 20 04/02/19 07:30 36.8 C 85 16 04/02/19 07:16 90 19 04/02/19 07:00 78 17 127/92 100 04/02/19 06:01 63 15 123/78 96 04/02/19 05:00 67 17 106/44 L 99 04/02/19 04:31 67 17 92/44 L 98 04/02/19 04:00 36.9 C 56 L 12 99/54 L 04/02/19 03:30 60 14 122/70 99 04/02/19 03:00 66 12 119/79 98 Laboratory Results Short CBC 04/02/19 Range/Units 04:07 WBC 5.75 (4.8-10.8) K/uL Hgb 8.5 L (14.0-18.0) g/dL Hct 24.1 L (42-52) % Plt Count 155 (130-400) K/uL BMP 04/02/19 04:07 Sodium 143 Potassium 3.9 Chloride 113 H Carbon Dioxide 28 BUN 25 H Creatinine 1.17 Glucose 92 Calcium 8.2 L Cardiac Enzymes 04/02/19 Range/Units 04:07 Troponin I 0.365 H* (0-0.045) ng/ml
[2019-04-02] MEDS: ASCORBIC ACID 500 MG TAB PO SCH (20:32)
[2019-04-02] MEDS: ROSUVASTATIN CALCIUM 20 MG TAB PO SCH (20:34)
[2019-04-02] MEDS: MONTELUKAST SODIUM 10 MG TABLET PO SCH (20:34)
[2019-04-02] MEDS: ACETAMINOPHEN 325 MG TAB PO PRN (22:42)
[2019-04-03 07:44] LABS: Hematocrit (blood only) 26.1 % (42-52); Hemoglobin 8.9 g/dL (14.0-18.0); Mean Corpuscular Hgb Conc 34.1 g/dL (32-36); Mean Platelet Volume 10.8 fL (7.4-10.4); Platelet Count 166 K/uL (130-400); RDW Coefficient of Variation 15.1 % (11.5-14.5); RDW Standard Deviation 47.2 fL (36.4-46.3); White Blood Count 6.57 K/uL (4.8-10.8)
[2019-04-03] MEDS: PYRIDOXINE HCL 50 MG TAB PO SCH (08:02)
[2019-04-03] MEDS: TAMSULOSIN HCL 0.4 MG CAP PO SCH (08:02)
[2019-04-03] MEDS: METOPROLOL TARTRATE 25 MG TAB PO SCH (08:02)
[2019-04-03] MEDS: GABAPENTIN 600 MG TAB PO SCH ×2 (08:02→13:43)
[2019-04-03] MEDS: ASPIRIN 81 MG ECTAB PO SCH (08:02)
[2019-04-03] MEDS: CLOPIDOGREL BISULFATE 75 MG TAB PO SCH (08:03)
[2019-04-03] MEDS: TIMOLOL MALEATE 0.5% OP SOLN 5 ML BTL OP SCH (08:04)
[2019-04-03] MEDS: INSULIN ASPART 100 UNITS/ML 3 ML PEN SC SCH ×2 (08:05→12:04)
[2019-04-03 08:18] LABS: BUN Creatinine Ratio 14.8 (10-20); Calcium 8.9 mg/dl (8.5-10.1); Creatinine Clr Calc Pharmacy 76.2 ml/min; Est GFR (African American) 69.4; Est GFR (Non-African American) 59.9
[2019-04-03] MEDS ORDERED: POLYETHYLENE (MIRALAX) 17 GM PACK PO PRN (09:38)
[2019-04-03] MEDS ORDERED: DOCUSATE SODIUM 100 MG CAP PO SCH (09:45)
--- NOTE | 2019-04-03 11:14 | Cardiology Progress Note ---
Date of Service Stable for discharge today, after LifeVest fitting. April 03, 2019 Assessment & Plan (1) NSTEMI (non-ST elevated myocardial infarction): Based on his clinical presentation and hospital course, I do not think that the patient's presentation is vendor representatives of an acute change in his coronary anatomy, I think he likely has had progression of the disease in both the RCA and huslia LAD territory over the last few years since his cardiac catheterization in 2009 when he was noted to have the circumflex coronary territory STEMI. His recent eye injury and the increased demands on his body afterward likely provoked unstable angina with subsequent mild troponin elevation. He has found to have an interval decline in his LV function compared to 2014. His ejection fraction certainly looks worse when ultrasound contrast is administered as compared to the noncontrast images. Some of the views make his ejection fraction look more favorable in the range of 40%, and somewhat coarsened in the range of 30%, overall, I would grade his ejection fraction is in the range of 30 to 40% Right heart catheterization revealed that he was volume depleted with normal cardiac outputs. I do not think he will require daily diuretic at discharge. He previously not been on beta-bill due to intolerance with relative low blood pressure. Given his presentation especially with findings of nonsustained ventricular tachycardia and decline his ejection fraction, we will proceed with another trial, will transition him to metoprolol succinate for discharge 25 mg by mouth daily. Patient also to be on dual antiplatelet therapy with aspirin and clopidogrel, he has been on these chronically. (2) NSVT (nonsustained ventricular tachycardia): No additional ventricular tachycardia noted overnight last night, he did have a 14 beat Flagler of normal complex tachycardia consistent with SVT at 163 bpm at 1706 on 04/02/2019 with spontaneous conversion to sinus rhythm. Otherwise telemetry overnight revealed sinus rhythm in the 70 to 90 bpm range. 17 beat Jamila nonsustained ventricular tachycardia noted on 04/02/2019 3:20 AM while sleeping. This was after his RCA territory PCI. He of course had a transient loss of consciousness episode earlier this hospital stay while he had been off the rn er just after his echocardiogram. Given decline in ejection fraction, loss of consciousness episode, and finding of a single episode of nonsustained ventricular tachycardia, patient to be discharged on a Life Vest. Await arrival of device. Plan for reassessment with future outpatient echocardiogram and long-term rn er for reassessment. (3) Ischemic cardiomyopathy: Status post Successful PCI of mid and distal RCA/PAV with 2 drug-eluting stents (mid 3.0 x 26, distal 2.5 x 22 Bart) on 04/01/2019. (4) Unresponsive episode: As noted above. (5) Stenosis of left internal carotid artery: Patient with long-standing history of cerebrovascular disease with past stroke and TIA. Carotid duplex performed this admission revealed findings suggestive of greater than 70% stenosis of the proximal left internal carotid artery. CT angiogram of the brain was performed revealing intracerebral atherosclerosis, however the images were not extended to include the carotids. I do not think this is the acute issue that brought him to the hospital. He would not be a candidate for revascularization shortly after his cardiac event. Recommend outpatient consultation by [facility] vascular surgery at [facility]. Will defer further imaging to the vascular surgery team. If revascularization is considered in the future, perhaps be a better candidate for carotid stenting rather than endarterectomy. Subjective Chief complaint: Follow-up presenting symptom of heavy perspiration, shortness of breath, syncope Subjective: Patient sitting out of bed next to the window this morning. Feeling well. Denies any chest discomfort, shortness of breath, or heavy perspiration. No additional syncopal episodes. Blood pressures have all been above 100, with most recent blood pressure reading 127/64. He has been receiving both atenolol eyedrops, as well as metoprolol tartrate 12.5 mg twice daily. Physical Exam Physical Exam: General: no acute distress and stated age Eyes: conjunctiva are pink and non-injected, sclera clear Neck: normal jugular venous pulse, no hepatojugular reflux Chest: normal shape and normal respiratory effort Lungs: clear to auscultation and percussion Cardiac Exam: - regular heart sounds, no murmurs, rubs, or gallops, no jugular venous distention Abdomen: abdomen soft, non-tender, no abnormal masses and no hepatosplenomegaly Musculoskeletal: no gait disturbance, no weakness Extremities: no edema and no cyanosis Neuro:awake, coversant, follows commands, no focal motor deficits Psych: appropriate affect and insight. Results & Data Vital Signs (Past 12 Hours) Vital Signs Temp Pulse Pulse Resp BP Pulse Ox 04/03/19 08:00 72 04/03/19 07:13 36.8 C 76 20 127/64 97 04/03/19 03:07 37.0 C 66 17 123/70 96 04/02/19 23:12 37.4 C 79 18 104/66 95 04/02/19 23:00 71 Laboratory Results CBC 04/03/19 Range/Units 07:26 WBC 6.57 (4.8-10.8) K/uL RBC 3.00 L (4.7-6.1) M/uL Hgb 8.9 L (14.0-18.0) g/dL Hct 26.1 L (42-52) % Plt Count 166 (130-400) K/uL Comprehensive Metabolic Panel 04/03/19 Range/Units 07:26 Sodium 142 (136-145) mmol/L Potassium 4.0 (3.5-5.1) mmol/L Chloride 110 H (98-107) mmol/L Carbon Dioxide 28 (21-32) mmol/L BUN 18 (7-18) mg/dl Creatinine 1.21 (0.6-1.4) mg/dl Glucose 105 H (70-99) mg/dl Calcium 8.9 (8.5-10.1) mg/dl Intake and Output 04/02/19 04/03/19 04/03/19 22:59 06:59 14:59 Intake Total 100 / 361.333 0 / 0 Balance 100 / 361.333 0 / 0 Intake: IV 0 / 261.333 0 / 0 Nss 1000ML 1,000 ml @ 80 mls/hr 0 / 261.333 IV .[id number] [facility] Rx#:[id number] Oral 100 / 100 Other: Other Intake Source Sips # Unmeasured Voids 1 Weight 113.9 kg Diagnostic Findings EKG performed 04/02/2019 10:22 AM: Normal sinus rhythm at 65 bpm, mild nonspecific ST-T wave abnormality, unchanged compared to 04/02/2019. Compared to his presenting EKG upon arrival to the emergency room, the lateral horizontal ST segment depression noted in the precordial leads has resolved. Sinus tachycardia has resolved.
--- NOTE | 2019-04-03 16:29 | Hospitalist Progress Note ---
Date of Service April 03, 2019 Assessment & Plan (1) Chest pain: (2) Coronary artery disease: NSTEMI: POA Cardiogenic Shock H/O CAD S/P CABG S/P Cardiac Cath: Successful PCI of mid and distal RCA/PAV with 2 drug-eluting stents Continue aspirin, Plavix, Crestor Pressors discontinued BP stable off pressors Appreciate Cardiology/ICU team Input Received IV fluids for Hypotension Resumed lisinopril at lower dose 2.5 mg today Also plan to continue on Metoprolol Succinate 25mg daily Continue Imdur 30mg daily NSVT: Asymptomatic Continue Beta bill Monitor on Tele Life Vest placed Ischemic Cardiomyopathy EF: 30-40% New lateral and septal hypokinesis compared and prior unchanged inferior/posterior scar on ECHO Life Vest placed 2 week Zio Patch and repeat ECHO as per Cards as outpatient Needs to reassess need for AICD placement as outpatient No plan to discharge on diuretics Unresponsive Episode H/O CVA Progressive Carotid Artery disease --Head CTA: No significant flow identified within either middle cerebral artery with a mild degree of flow seen within the distal branches of the bilateral middle cerebral arteries, likely secondary to collateralization. Findings are suggestive of chronic high-grade stenosis and/or occlusion. Diminutive right P1 without flow seen past the distal right 1 segment suggestive of high-grade stenosis and/or occlusion, also likely chronic. Extensive calcified plaque about the intracranial bilateral internal carotid arteries without high-grade stenosis. No acute intracranial abnormality identified. Needs further evaluation and Vascular surgery follow up as outpatient Continue Aspirin, Plavix, Statins Telemetry monitoring (3) Diabetes mellitus, type 2: Hgb A1c 6.1 02/2019 Hold oral agents Utilize NovoLog per protocol while hospitalized (4) Hypertension: Isosorbide and lisinopril resumed (5) CVA (cerebral vascular accident): (6) TIA (transient ischemic attack): Continue aspirin, Plavix, statin (7) DVT prophylaxis: SCDs for now Code Status: Full Code Disposition: Plan to discharge home today Subjective Patient is seen and examined at bedside Reports constipation Getting Life Vest fitted today No other complaints Discussed with Cardiology today Denies chest pain, shortness of breath, dizziness, abdominal pain Family at bedside Review of Systems Review of Systems: All systems reviewed & are unremarkable except as noted in HPI & below Physical Exam Physical Exam: Physical Exam: Vitals signs as noted above General Appearance:Moderately built and nourished, no apparent distress Head: normocephalic, Atraumatic Eyes: normal inspection, EOMI Neck: supple, Trachea midline Respiratory/Chest: Normal breath sounds, CTA Cardiovascular: S1, S2, No murmur Abdomen/GI:Soft, Non tender, Bowel sounds present Extremities/Musculoskelatal:normal inspection, no edema Neurologic/Psych:AAOX3, grossly no focal neurological deficits Skin: normal color, warm Results & Data Vital Signs (Past 12 Hours) Vital Signs Temp Pulse Pulse Resp BP BP Pulse Ox 04/03/19 15:48 36.4 C L 62 18 123/71 98 04/03/19 11:23 37.2 C 72 18 99/53 L 97 04/03/19 08:00 72 04/03/19 07:13 36.8 C 76 20 127/64 97 Laboratory Results Short CBC 04/03/19 Range/Units 07:26 WBC 6.57 (4.8-10.8) K/uL Hgb 8.9 L (14.0-18.0) g/dL Hct 26.1 L (42-52) % Plt Count 166 (130-400) K/uL BMP 04/03/19 07:26 Sodium 142 Potassium 4.0 Chloride 110 H Carbon Dioxide 28 BUN 18 Creatinine 1.21 Glucose 105 H Calcium 8.9
--- NOTE | 2019-04-03 16:42 | Discharge Summary ---
Date of Service April 03, 2019 Admission HPI Per Admitting Provider 73-year-old male who presents the ED with shortness of breath. Patient reports his symptoms began yesterday. Patient reports feeling short of breath very minimal exertion with associated chest heaviness. He is also been having episodes of diaphoresis. He reports some nausea with diarrhea yesterday. 5 days ago, patient reports he was struck in the eye with a piece of debris while mowing grass and as per his eye doctor, he has been on minimal activity. He reports his symptoms are very similar as when he has had his previous MIs in the past. Patient was seen at his PCPs office today and was noted to be tachycardic with EKG changes. He was sent to the ED for further evaluation. No orthopnea, however patient reports he was instructed to not lie flat as per his eye doctor. He denies lower extremity edema. Patient denies lightheadedness, dizziness, syncopal events. No other recent illnesses, fevers, chills. He denies abdominal pain and vomiting. He denies any urinary symptoms. In the ED, EKG demonstrates new T wave inversions in leads I, II, aVL. Initial troponin is negative. Patient is hemodynamically stable. He was given a full dose aspirin. CTA chest is negative for PE. Admission Exam Per Admitting Provider Constitutional: WD/WN, vitals as above Eyes: PERRL, conjunctivae normal, anicteric sclerae ENMT: external ear and nose normal, oropharynx normal Respiratory: normal respiratory effort, lungs clear to auscultation Cardiovascular: Rate/Rhythm: regular rhythm and + tachycardic Vessels: normal peripheral pulses Extremities: no edema Gastrointestinal (Abdomen): normal bowel sounds, soft, nontender, no hepatosplenomegaly Musculoskeletal: no cyanosis or clubbing, extremities motor strength 5/5 Skin: no rashes, warm and dry Neurologic: PERRL, EOMI, accommodation nl, no face palsy, no dysarthria Psychiatric: A+Ox3, euthymic affect Principal Diagnosis Discharge Information Discharge Diagnosis NSTEMI NSVT Ischemic Cardiomyopathy Progressive Carotid Artery disease Discharge Goals Decrease discomfort,Improve disease control, Improve function Discharge Activity Limitations Per instructions/follow-up Discharge Data Allergies Allergy/AdvReac Type Severity Reaction Status Date / Time No Known Allergies Allergy Verified 03/30/19 14:33 Consultations 03/30/19 16:29 ED Decision to Admit Stat 03/30/19 18:21 Consult Cardiology Routine 03/31/19 10:39 Consult Cardiac Catheterization Routine 03/31/19 12:25 Consult Director Biostatistics Routine 03/31/19 12:36 Consult Case Management - Discharge Planning Routine 04/02/19 09:08 Consult Case Management - Discharge Planning Routine Procedures Performed Operation Date: 03/31/19 11:00 Actual Procedures s Cineradiography w/Routine Exam - Trav Luna MD p Cath, Right and Left with Grafts - Trav Luna MD s Ultrasound Vascular Access - Trav Luan MD s POBA SGL Vessel - Trav Luna MD Operation Date: 04/01/19 15:00 Actual Procedures s Cineradiography w/Routine Exam - Trav Luna MD p Drug Eluting Stent SGl Vessel - Trav Luna MD s IVUS Coronary Single Vessel - Trav Luna MD Chest CTA: 1. No acute aortic pathology or evidence of pulmonary thromboembolic disease. 2. Mild bilateral bronchial wall thickening suggests reactive airway disease or bronchitis. 3. No focal airspace consolidation typical for pneumonia. 4. Prior median sternotomy and CABG. 5. Mild wall thickening about the esophagus with focal soft tissue prominence of the esophagus at the level of T6 suggestive of esophagitis or mucosal mass lesion. This could be correlated with endoscopy if of further clinical concern. Carotid Doppler: 1. Sonographic findings suggestive of greater than 70% stenosis of the proximal left internal carotid artery. 2. Moderate plaque within the proximal right internal carotid artery without evidence for stenosis. 3. Findings suggestive of a stenosis within the proximal left external carotid artery. Head CTA: 1. No significant flow identified within either middle cerebral artery with a mild degree of flow seen within the distal branches of the bilateral middle cerebral arteries, likely secondary to collateralization. Findings are suggestive of chronic high-grade stenosis and/or occlusion. 2. Diminutive right P1 without flow seen past the distal right 1 segment suggestive of high-grade stenosis and/or occlusion, also likely chronic. 3. Extensive calcified plaque about the intracranial bilateral internal carotid arteries without high-grade stenosis. 4. No acute intracranial abnormality identified. ECHO: There is a large sized apical, septal, anteroseptal, inferior, posterior and lateral wall motion abnormality with hypokinesis to akinesis of the segments The left ventricle systolic function is moderate to severely reduced The qualitative left ventricular ejection fraction is 30 to 34% Ordered Studies 03/30/19 14:55 CT angio chest PE protocol Stat 03/31/19 10:46 CL Cath Imgs for PACS use only Routine 03/31/19 17:39 US carotid doppler BI Urgent 04/01/19 13:18 CL Cath Imgs for PACS use only Routine 04/02/19 06:44 CL IVUS Coronary Single Vessel Routine 04/02/19 08:20 CT angio head wo/w Routine Hospital Course (1) Chest pain: (2) Coronary artery disease: NSTEMI: POA Cardiogenic Shock H/O CAD S/P CABG S/P Cardiac Cath: Successful PCI of mid and distal RCA/PAV with 2 drug-eluting stents Continue aspirin, Plavix, Crestor Pressors discontinued BP stable off pressors Appreciate Cardiology/ICU team Input Received IV fluids for Hypotension Resumed lisinopril at lower dose 2.5 mg today Also plan to continue on Metoprolol Succinate 25mg daily Continue Imdur 30mg daily NSVT: Asymptomatic Continue Beta bill Monitor on Tele Life Vest placed Ischemic Cardiomyopathy EF: 30-40% New lateral and septal hypokinesis compared and prior unchanged inferior/posterior scar on ECHO Life Vest placed 2 week Zio Patch and repeat ECHO as per Cards as outpatient Needs to reassess need for AICD placement as outpatient No plan to discharge on diuretics Unresponsive Episode H/O CVA Progressive Carotid Artery disease --Head CTA: No significant flow identified within either middle cerebral artery with a mild degree of flow seen within the distal branches of the bilateral middle cerebral arteries, likely secondary to collateralization. Findings are suggestive of chronic high-grade stenosis and/or occlusion. Diminutive right P1 without flow seen past the distal right 1 segment suggestive of high-grade stenosis and/or occlusion, also likely chronic. Extensive calcified plaque about the intracranial bilateral internal carotid arteries without high-grade stenosi s. No acute intracranial abnormality identified. Needs further evaluation and Vascular surgery follow up as outpatient Continue Aspirin, Plavix, Statins Telemetry monitoring (3) Diabetes mellitus, type 2: Hgb A1c 6.1 02/2019 Hold oral agents Utilize NovoLog per protocol while hospitalized (4) Hypertension: Isosorbide and lisinopril resumed (5) CVA (cerebral vascular accident): (6) TIA (transient ischemic attack): Continue aspirin, Plavix, statin (7) DVT prophylaxis: SCDs for now Code Status: Full Code Disposition: Plan to discharge home today Total Time Total Time Spent Total Time Spent (In Minutes): 45 minutes Total Time Includes: Examination of the Patient, Discharge Planning, Medication Reconciliation, Communication With Other Providers and Other Discharge Plan Discharge Items Patient Disposition: Home - Self-Care Reason For Visit: CHEST PAIN Discharge Diagnosis: NSTEMI NSVT Ischemic Cardiomyopathy Progressive Carotid Artery disease Discharge Goals: Decrease discomfort, Improve disease control and Improve function Activity: Per 'Additional Instructions' section Exercise/Sports: Wait until after follow-up appointment Non-emergency contact: Primary Care Provider, Surgeon and Dietary Aide Cook Call non-emergency contact if: you have any medication questions, your symptoms worsen, your pain is not controlled, your pain is worsening, your pain is unusual for you, your pain is concerning for you and you have a fever Follow-up/Referrals: Chava Bell MD [Primary Care Provider] - Diet: Carb Consistent or DM2 and Heart Healthy Addtl Provider Instructions: Follow up with your PCP on April 082018 at 1:05pm Follow up with your Dietary Aide Cook on April 17, 2019 at 2:30pm Follow up with your Vascular Surgeon as recommended Seek immediate medical attention if your symptoms reoccur or worsen Home Care: * Take your medications exactly as directed. Don't skip doses. * Remember that recovery after a heart attack takes time. Plan to rest for at lease 4-8 weeks while you recover. Then return to normal activity when your doctor says it's okay. * Ask your doctor about joining a heart rehabilitation program. * Tell your doctor if you are feeling depressed. Feelings of sadness are common after a heart attack, but it is important that you speak to someone if you are feeling overwhelmed by these feelings. * If you are having chest pain, call 911 for an ambulance. Do NOT drive yourself to the hospital. * Ask your family members to learn CPR. * Learn to take your own blood pressure and pulse. Keep a record of your r esults. Ask your doctor when you should seek emergency medical attention. He or she will tell you which blood pressure reading is dangerous. Lifestyle Changes: * Maintain a healthy weight. Get help to lose any extra pounds. * Cut back on salt. * Limit canned, dried, packaged, and fast foods. * Don't add salt to your food. * Season foods with herbs instead of salt when you cook. * Break the smoking habit. Enroll in a stop-smoking program to improve your chances of success. * Limit fatty foods. * Ask your doctor about having your lipid levels checked regularly. * Build up your activity according to your doctor's recommendation. * Ask your doctor when it's okay to resume sexual activity. * Tell your doctor about any erectile dysfunction (ED) medication you are taking. Some ED medications are not safe if you take certain heart medications. * Try to manage stress. Follow Up: It is important for you to keep your follow up appointments with your medical provider. Prescriptions: New docusate sodium 100 mg Capsule 100 mg PO BID Qty: 14 RF: 0 metoprolol succinate 25 mg Tablet Extended Release 24 Hr 25 mg PO QAM 30 Days Qty: 30 RF: 1 lisinopril 2.5 mg Tablet 2.5 mg PO QAM 30 Days Qty: 30 RF: 1 polyethylene glycol 3350 [Miralax] 17 gram Powder In Packet 17 g PO DAILY PRN (Reason: constipation) Qty: 7 RF: 0 Continued isosorbide mononitrate 30 mg Tablet Extended Release 24 Hr 30 mg PO QAM Qty: 0 RF: 0 aspirin [Aspirin Low Dose] 81 mg Tablet,Delayed Release (Dr/Ec) 81 mg PO DAILY Qty: 0 RF: 0 clopidogrel 75 mg Tablet 75 mg PO QAM Qty: 0 RF: 0 gabapentin 300 mg Capsule 600 mg PO TID Qty: 0 RF: 0 montelukast 10 mg Tablet 10 mg PO PM Qty: 0 RF: 0 metformin 500 mg Tablet 500 mg PO BID Qty: 0 RF: 0 acetaminophen [Acetaminophen Extra Strength] 500 mg Tablet 1,000 mg PO UD PRN (Reason: Pain) Qty: 0 RF: 0 nitroglycerin 0.4 mg Tablet, Sublingual 0.4 mg sublingual Q5M PRN (Reason: Chest Pain) Qty: 0 RF: 0 cyanocobalamin (vitamin B-12) 500 mcg Tablet 500 mcg PO SUTUTHSA RF: 0 ascorbic acid (vitamin C) 500 mg Tablet 500 mg PO HS RF: 0 tamsulosin 0.4 mg Capsule 0.4 mg PO DAILY RF: 0 pyridoxine (vitamin B6) [Vitamin B-6] 100 mg Tablet 100 mg PO MOWEFR RF: 0 rosuvastatin 40 mg Tablet 40 mg PO HS RF: 0 Discontinued lisinopril 5 mg Tablet 5 mg PO DAILY RF: 0 Stand-Alone Forms: [facility]charge Orders: Discharge Order (Routine); Ordered 04/03/19 Ordered By: Jad Miles Admission Data Admit Date/Time: 03/31/19 12:36 Attending Provider: Jad Miles Admit Provider: Beth Silva Primary Care Provider: Chava Bell Other Providers: Michael Aguilar ; Beth Silva ; Urbano Gann ; Trav Luna ; Bryant Gross Service: Telemetry Other Interventions: Discharge Summary Assessment (RN) Last Done: 04/03/19 17:01 Pending Studies at Discharge: No DC Date/Time DO NOT enter until pt leaves facility: 04/03/19 17:54
[2019-04-04] MEDS ORDERED: LISINOPRIL 2.5 MG TAB PO SCH (09:00)
[2019-04-04] MEDS ORDERED: METOPROLOL SUCC 25MG EXT REL TAB PO SCH (09:00)
== END 2019-04-03 17:54 | disposition home or self-care (01) | DRG 246 ==
LOC: ED 13:23 → 2S 13:23 → SUATTDRO 03-31 12:36 → 1E 03-31 13:14 → 2S 04-02 13:53

== ENCOUNTER 2021-03-15 15:44 | Inpatient (IN) ==
[2021-03-15 16:07] LABS: Basophils # (auto) 0.04 K/uL (0-0.2); Basophils % (auto) 0.6 %; Eosinophils # (auto) 0.11 K/uL (0-0.5); Eosinophils % (auto) 1.5 %; Hematocrit (blood only) 43.5 % (42-52); Hemoglobin 14.9 g/dL (14.0-18.0); Lymphocytes # (auto) 1.91 K/uL (1.2-3.4); Lymphocytes % (auto) 26.3 %; Mean Corpuscular Hemoglobin 30.9 pg (25-34); Mean Corpuscular Hgb Conc 34.3 g/dL (32-36); Mean Corpuscular Volume 90.2 fL (80-100); Mean Platelet Volume 10.8 fL (7.4-10.4); Monocytes # (auto) 0.73 K/uL (0.11-0.59); Neutrophils # (auto) 4.48 K/uL (1.4-6.5); Neutrophils % (auto) 61.6 %; Platelet Count 188 K/uL (130-400); RDW Coefficient of Variation 14.2 % (11.5-14.5); RDW Standard Deviation 47.1 fL (36.4-46.3); Red Blood Count 4.82 M/uL (4.7-6.1); White Blood Count 7.27 K/uL (4.8-10.8)
--- NOTE | 2021-03-15 16:12 | Emergency Department Note ---
Impression & Plan Atrial fibrillation with rapid ventricular response ED Provider Note INFORMANT: Patient ED PROVIDER(S): Tulio Kerr MD CHIEF COMPLAINT: Low blood pressure PLAN: Disposition: Admitted Condition: Good Outpatient prescription management: none Referral: none MEDICAL DECISION MAKING: Patient presented emergency department noting low blood pressure. He did not have hypotension here but he was found to be tachycardic. He was in A. fib with RVR. He does note a history of this but prior ECGs available to me did not reveal any history of A. fib. He also had a left bundle branch block. Patient denied any chest pain. He does have an extensive cardiac history. An IV was established and he was given IV Lopressor. This did help control his rate. He did require second dose. He was found to have an unremarkable CBC and chemistry panel. The patient's troponin is mildly elevated. I did consult with Dr. Olmstead of [facility] cardiology. He recommended initiation of oral metoprolol tartrate 25 mg in addition to the IV doses. We also discussed IV heparinization and he did recommend this. The patient was given IV heparin. He will need further management in the hospital. Patient and are in agreement. Consultation was made with the [facility] hospitalist service. The patient was evaluated in ER by the team. He will be admitted under Dr. Silva. Triage Nursing notes reviewed and agree them. Vital Signs: reviewed and remarkable for tachycardia Differential diagnosis: Dehydration, electrolyte abnormality, cardiac dysrhythmia, thyroid dysfunction, pulmonary embolism, infection, gastrointestinal, as well as other pathologies. Diagnostics interpreted by me: ECG: Rate:144 Rhythm:Atrial fib with RVR [place]:Normal QRS:LBBB ST segements:No elevation or depression Other:+pvcs Cardiac Monitoring: Cardiac monitoring ordered by me: The patient was placed on continuous cardiac monitoring and observed. It revealed atrial fibrillation at 126 beats per minute. Imaging studies: Chest x-ray. Findings: A chest x-ray was performed and revealed no pneumothorax, effusion, infiltrate, pulmonary edema, free air under the diaphragm, or wide mediastinum. Impression: No acute disease. HPI: The patient is a 75 year old male who presents to the Emergency Room with complaints of hypotension. This started today. Patient has extensive cardiac history including afib and CAD. The patient also notes the following associated symptoms, dizziness, fatigue, SOB, weakness. The patient has tried pushing fluids for relieving factors. Current pain is rated as 0/10. No recent illnesses. Only noted some fatigue over the last few days. Pt denies LOC, headache, fevers, chills, diaphoresis, visual changes, neck pain, chest pain, nausea, vomiting, abdominal pain, back pain, melena, hematochezia, urinary symptoms, numbness, lymphadenopathy, rash, or other complaints. ROS: See above HPI for pertinent positives & negatives. A total of 10 systems reviewed and were otherwise negative. PAST MEDICAL HISTORY:See Below , CAD, Afib, DM PAST SURGICAL HISTORY:See Below, CABG, Stents FAMILY HISTORY:See Below SOCIAL HISTORY:See Below, , no tobacco HOME MEDICATIONS:See Below ALLERGIES:See Below VITALS:See Below PHYSICAL EXAMINATION: GENERAL: Awake, alert, well-appearing, in no distress HENT: Normocephalic, atraumatic. Oropharynx unremarkable. EYES: Normal conjunctiva. Sclera non-icteric. NECK: Inspection normal. Non-tender. Supple. No nuchal rigidity. FROM. No masses. RESPIRATORY: Clear to auscultation. No wheezes. No rales. Normal respiratory effort. CARDIAC: Tachycardic rate. Irregular rhythm. No murmurs. No rubs. Extremities warm and well perfused. Pulses equal. No JVD. GI: Soft, non-distended. No tenderness to palpation. No rebound or guarding. No masses. RECTAL: Deferred. MUSCULOSKELETAL: Atraumatic. Chest examination reveals no tenderness. The back is symmetrical on inspection without obvious abnormality. There is no CVA tender ness to palpation. No joint edema. LOWER EXTREMITIES: Calves are equal size bilaterally and non-tender. No edema. No discoloration. NEURO: Normal sensorium. No sensory or motor deficits noted. SKIN: No rash or jaundice noted. CRITICAL CARE: I have personally spent greater than 33 minutes of critical care time in the direct management of this patient. This includes bedside care, interpretation of diagnostic studies, and testing, discussion with consultants, patient, and family members, and other required patient management activities. This 33 minutes is in excess of all separately billable procedures. Tulio Kerr MD Past Med/Surg History Medical History (Updated 03/15/21 @ 18:02 by Cristina Cortez PA-C) CKD (chronic kidney disease) stage 3, GFR 30-59 ml/min CVA (cerebral vascular accident) Diabetes Diabetes mellitus, type 2 Dyslipidemia GERD (gastroesophageal reflux disease) GERD (gastroesophageal reflux disease) Gout HTN (hypertension) Hypertension Paroxysmal A-fib TIA (transient ischemic attack) Surgical History (Updated 03/15/21 @ 17:45 by Cristina Cortez PA-C) H/O umbilical hernia repair x2 History of coronary artery stent placement LAD and RCA 2019 History of Amie fundoplication S/P CABG x 2 S/P repair of paraesophageal hernia Status post cataract extraction Status post tonsillectomy Family History Mother Stroke Social History Smoking Status: Former smoker Second Hand Exposure: No; Do You Dip or Chew Tobacco: No; Tobacco Cessation Education Requested by Patient: No Hx Alcohol Use: Yes Alcohol type: beer Hx Substance Use: No Preferred Language: Mohawk Communication Ability: Effective Revit Drafter Required: No Beliefs That Will Affect Care: None Current Living Situation: Spouse current occupation: Retired Other Information That Helps Us Care for You: No Feels Safe at Home: Yes Safety Concerns: Feels Safe At This Time Assistive Devices: Hearing Aid - Left and Hearing Aid - Right Allergies Allergies Allergy/AdvReac Type Severity Reaction Status Date / Time No Known Allergies Allergy Verified 03/15/21 17:18 Home Meds Home Medications Medication Instructions Recorded Confirmed isosorbide mononitrate 30 mg PO QAM #0 tab 08/12/14 03/15/21 aspirin [Aspirin Low Dose] 81 mg PO DAILY #0 09/11/14 03/15/21 gabapentin 300 mg PO TID #0 cap 03/20/16 03/15/21 metformin 500 mg PO BID #0 tab 02/10/17 03/15/21 acetaminophen [Acetaminophen Extra 1,000 mg PO UD PRN #0 tab 08/15/17 03/15/21 Strength] nitroglycerin 0.4 mg SUBLINGUAL Q5M PRN #0 08/15/17 03/15/21 rosuvastatin 40 mg PO HS 03/30/19 03/15/21 tamsulosin 0.4 mg PO DAILY 03/30/19 03/15/21 clopidogrel 75 mg PO DAILY 03/15/21 03/15/21 cyanocobalamin (vitamin B-12) 1,000 mcg PO DAILY 03/15/21 03/15/21 gabapentin 800 mg PO TID 03/15/21 03/15/21 indomethacin 50 mg PO TID PRN 03/15/21 03/15/21 losartan 25 mg PO DAILY 03/15/21 03/15/21 montelukast 10 mg PO DAILY 03/15/21 03/15/21 Previous Rx's Medication Instructions Recorded docusate sodium 100 mg PO BID #14 cap 04/03/19 Results & Data (ED) Vital Signs Vital Signs - 24 hr 03/15/21 15:48 03/15/21 15:57 03/15/21 15:59 Temperature 36.7 C Temperature Source Temporal Artery Scan Pulse Rate 106 H 117 H Pulse Rate from SpO2 Sensor 122 H Pulse Rhythm Regular Pulse Strength Normal Respiratory Rate 20 17 Respiratory Effort / Characteristics Non-Labored Spontaneous Non-Labored Respiratory Depth Normal Normal Respiratory Pattern Regular Blood Pressure 141/83 H 123/94 Blood Pressure Mean 102 103 Blood Pressure Position Sitting Pulse Oximetry 99 98 Oxygen Delivery Method Room Air Room Air Sepsis Recent Fever Within 48 Hours No Sepsis New/Unexplained Change in Mental Status N/A Sepsis Action Taken by Nursing No Action Required 03/15/21 16:08 03/15/21 16:10 03/15/21 16:20 Temperature Temperature Source Pulse Rate 138 H 113 H 120 H Pulse Rate from SpO2 Sensor 93 H 100 H 89 Pulse Rhythm Pulse Strength Respiratory Rate 15 17 15 Respiratory Effort / Characteristics Respiratory Depth Respiratory Pattern Blood Pressure Blood Pressure Mean Blood Pressure Position Pulse Oximetry 98 90 98 Oxygen Delivery Method Sepsis Recent Fever Within 48 Hours Sepsis New/Unexplained Change in Mental Status Sepsis Action Taken by Nursing 03/15/21 16:23 03/15/21 16:30 03/15/21 16:45 Temperature Temperature Source Pulse Rate 116 H 109 H 96 H Pulse Rate from SpO2 Sensor 59 L 69 70 Pulse Rhythm Pulse Strength Respiratory Rate 17 15 15 Respiratory Effort / Characteristics Respiratory Depth Respiratory Pattern Blood Pressure 124/76 137/87 121/95 Blood Pressure Mean 92 103 103 Blood Pressure Position Pulse Oximetry 98 97 99 Oxygen Delivery Method Room Air Sepsis Recent Fever Within 48 Hours Sepsis New/Unexplained Change in Mental Status Sepsis Action Taken by Nursing 03/15/21 17:00 Temperature Temperature Source Pulse Rate 117 H Pulse Rate from SpO2 Sensor Pulse Rhythm Pulse Strength Respiratory Rate 15 Respiratory Effort / Characteristics Respiratory Depth Respiratory Pattern Blood Pressure 140/89 Blood Pressure Mean 106 Blood Pressure Position Pulse Oximetry 98 Oxygen Delivery Method Sepsis Recent Fever Within 48 Hours Sepsis New/Unexplained Change in Mental Status Sepsis Action Taken by Nursing Laboratory Data Result diagrams: 03/15/21 15:55 03/15/21 15:55 Lab Results 03/15/21 03/15/21 03/15/21 Range/Units 15:55 15:55 15:55 WBC 7.27 (4.8-10.8) K/uL RBC 4.82 (4.7-6.1) M/uL Hgb 14.9 (14.0-18.0) g/dL Hct 43.5 (42-52) % MCV 90.2 (80-100) fL MCH 30.9 (25-34) pg MCHC 34.3 (32-36) g/dL RDW Std Deviation 47.1 H (36.4-46.3) fL RDW Coeff of Leela 14.2 (11.5-14.5) % Plt Count 188 (130-400) K/uL MPV 10.8 H (7.4-10.4) fL Immature Gran % (Auto) 0.0 % Neut % (Auto) 61.6 % Lymph % (Auto) 26.3 % Karnes % (Auto) 10.0 % Eos % (Auto) 1.5 % Baso % (Auto) 0.6 % Neut # (Auto) 4.48 (1.4-6.5) K/uL Lymph # (Auto) 1.91 (1.2-3.4) K/uL Karnes # (Auto) 0.73 H (0.11-0.59) K/uL Eos # (Auto) 0.11 (0-0.5) K/uL Baso # (Auto) 0.04 (0-0.2) K/uL Immature Gran # (Auto) 0.00 (0.00-0.02) K/uL PT 10.0 (9.0-12.0) Seconds INR 1.0 (0.9-1.1) APTT 26.1 (21.0-31.0) Seconds PTT Ratio 1.0 Sodium 140 (136-145) mmol/L Potassium 4.5 (3.5-5.1) mmol/L Chloride 108 H (98-107) mmol/L Carbon Dioxide 29 (21-32) mmol/L Anion Gap 3.0 (3-11) BUN 25 H (7-18) mg/dl Creatinine 1.49 H (0.6-1.4) mg/dl Est Cr Clr Drug Dosing 60.1 ml/min Est GFR ( Amer) 53.2 Est GFR (Non-Af Amer) 45.9 BUN/Creatinine Ratio 16.9 (10-20) Glucose 85 (70-99) mg/dl Calcium 8.6 (8.5-10.1) mg/dl Magnesium 2.2 (1.8-2.4) mg/dl Total Bilirubin 0.6 (0.2-1) mg/dl AST 20 (15-37) U/L ALT 23 (12-78) U/L Alkaline Phosphatase 77 (45-117) U/L Troponin I 0.101 H* (0-0.045) ng/ml Total Protein 7.2 (6.4-8.2) gm/dl Albumin 3.6 (3.4-5.0) gm/dl Globulin 3.6 (2.5-4.0) gm/dl Albumin/Globulin Ratio 1.0 (0.9-2) TSH 5.620 H (0.300-4.500) uIu/ml Free T4 0.92 (0.8-1.6) ng/dl COVID-19 Eval Order SARS-CoV-2 (PCR) (Negative) Influenza Type A (PCR) (Neg) Influenza Type B (PCR) (Neg) RSV (RT-PCR) (Neg) 03/15/21 03/15/21 Range/Units 16:22 16:22 WBC (4.8-10.8) K/uL RBC (4.7-6.1) M/uL Hgb (14.0-18.0) g/dL Hct (42-52) % MCV (80-100) fL MCH (25-34) pg MCHC (32-36) g/dL RDW Std Deviation (36.4-46.3) fL RDW Coeff of Leela (11.5-14.5) % Plt Count (130-400) K/uL MPV (7.4-10.4) fL Immature Gran % (Auto) % Neut % (Auto) % Lymph % (Auto) % Karnes % (Auto) % Eos % (Auto) % Baso % (Auto) % Neut # (Auto) (1.4-6.5) K/uL Lymph # (Auto) (1.2-3.4) K/uL [place] # (Auto) (0.11-0.59) K/uL Eos # (Auto) (0-0.5) K/uL Baso # (Auto) (0-0.2) K/uL Immature Gran # (Auto) (0.00-0.02) K/uL PT (9.0-12.0) Seconds INR (0.9-1.1) APTT (21.0-31.0) Seconds PTT Ratio Sodium (136-145) mmol/L Potassium (3.5-5.1) mmol/L Chloride (98-107) mmol/L Carbon Dioxide (21-32) mmol/L Anion Gap (3-11) BUN (7-18) mg/dl Creatinine (0.6-1.4) mg/dl Est Cr Clr Drug Dosing ml/min Est GFR ( Amer) Est GFR (Non-Af Amer) BUN/Creatinine Ratio (10-20) Glucose (70-99) mg/dl Calcium (8.5-10.1) mg/dl Magnesium (1.8-2.4) mg/dl Total Bilirubin (0.2-1) mg/dl AST (15-37) U/L ALT (12-78) U/L Alkaline Phosphatase (45-117) U/L Troponin I (0-0.045) ng/ml Total Protein (6.4-8.2) gm/dl Albumin (3.4-5.0) gm/dl Globulin (2.5-4.0) gm/dl Albumin/Globulin Ratio (0.9-2) TSH (0.300-4.500) uIu/ml Free T4 (0.8-1.6) ng/dl COVID-19 Eval Order CovFluRsv at [facility] SARS-CoV-2 (PCR) NEGATIVE (Negative) Influenza Type A (PCR) Negative (Neg) Influenza Type B (PCR) Negative (Neg) RSV (RT-PCR) Negative (Neg) Administered Medications Gabapentin (Gabapentin 800 Mg Tab) 800 mg PO TID [facility] Stop: 04/14/21 20:59 Last Admin: 03/15/21 21:40 Dose: 800 mg Documented by: [id number] Gabapentin (Gabapentin 300 Mg Cap) 300 mg PO TID [facility] Stop: 04/14/21 20:59 Last Admin: 03/15/21 21:40 Dose: 300 mg Documented by: [id number] Heparin Sodium/Dextrose (Heparin Sodium/Dextrose) 25,000 units in 500 mls @ 35 mls/hr IV .[id number] [facility]; Protocol Stop: 04/14/21 17:04 Last Titration: 03/16/21 01:04 Dose: 1,650 units/hr, 33 mls/hr Documented by: [id number] Cosigned by: [id number] Admin: 03/15/21 17:19 Dose: 1,750 units/hr, 35 mls/hr Documented by: [id number] Cosigned by: [id number] Diltiazem HCl 125 mg/ Dextrose 125 mls @ 5 mls/hr IV .Q24H [facility]; Protocol Stop: 04/14/21 17:59 Last Admin: 03/15/21 18:41 Dose: 5 mg/hr, 5 mls/hr Documented by: [id number] Cosigned by: [id number] Insulin Aspart (Insulin Aspart 100 Units/Ml 3 Ml Pen) 0 units SC ACHS [facility] Stop: 04/14/21 20:59 Last Admin: 03/15/21 21:34 Dose: Not Given Documented by: [id number] Rosuvastatin Calcium (Rosuvastatin Calcium 20 Mg Tab) 40 mg PO HS [facility] Stop: 04/14/21 20:59 Last Admin: 03/15/21 21:40 Dose: 40 mg Documented by: [id number] Discontinued Medications Diltiazem HCl (Diltiazem Hcl 5 Mg/Ml 5 Ml Vial) 10 mg IV NOW STA Stop: 03/15/21 17:50 Last Admin: 03/15/21 18:43 Dose: 10 mg Documented by: [id number] Cosigned by: [id number] Heparin Sodium (Porcine) (Heparin Sod (Porcine) 1000 Unit/Ml 10 Ml Vial) 5,000 units IV NOW ONE Stop: 03/15/21 17:16 Last Admin: 03/15/21 17:21 Dose: 5,000 units Documented by: [id number] Cosigned by: [id number] Heparin Sodium/Dextrose (Heparin Iv Adult Wt-Based Standard With Bolus Protocol) 1 ea N/A NOW STA; Protocol Stop: 03/15/21 16:50 Last Admin: 03/15/21 17:22 Dose: Not Given Documented by: [id number] Sodium Chloride (Nss 1000ml) 500 mls @ 999 mls/hr IV .Q31M ONE Stop: 03/15/21 16:43 Last Infusion: 03/15/21 16:59 Dose: 999 mls/hr Documented by: [id number] Admin: 03/15/21 16:27 Dose: 999 mls/hr Documented by: [id number] Sodium Chloride (Nss 1000ml) 1,000 mls @ 125 mls/hr IV .Q8H STA Stop: 03/16/21 00:12 Last Admin: 03/15/21 16:28 Dose: 125 mls/hr Documented by: [id number] Metoprolol Tartrate (Metoprolol Tartrate 1 Mg/Ml Vial) 2.5 mg IV NOW STA Stop: 03/15/21 16:14 Last Admin: 03/15/21 16:24 Dose: 2.5 mg Documented by: [id number] Metoprolol Tartrate (Metoprolol Tartrate 50 Mg Tab) 25 mg PO NOW STA Stop: 03/15/21 16:52 Last Admin: 03/15/21 17:15 Dose: 25 mg Documented by: [id number] Metoprolol Tartrate (Metoprolol Tartrate 1 Mg/Ml Vial) 2.5 mg IV NOW STA Stop: 03/15/21 17:09 Last Admin: 03/15/21 17:16 Dose: 2.5 mg Documented by: [id number] Discharge Plan Visit Data Chief Complaint: Hypotension Stated Complaint: LOW BLOOD PRESSURE, DIZZY ED Provider: Tulio Kerr Discharge Problem: Atrial fibrillation with rapid ventricular response Patient Disposition: Admitted As Inpatient Discharge Instructions Interventions: ED Discharge Assessment Last Done: 03/15/21 20:47
[2021-03-15] MEDS ORDERED: SODIUM CHLORIDE 0.9% 1000ML 500 ML IV ONE (16:13)
[2021-03-15] MEDS ORDERED: METOPROLOL TARTRATE 1 MG/ML VIAL IV STA ×2 (16:13→17:08)
[2021-03-15] MEDS ORDERED: SODIUM CHLORIDE 0.9% 1000ML 1,000 ML IV STA (16:13)
[2021-03-15 16:27] LABS: Albumin Level 3.6 gm/dl (3.4-5.0); BUN Creatinine Ratio 16.9 (10-20); Calcium 8.6 mg/dl (8.5-10.1); Creatinine Clr Calc Pharmacy 60.1 ml/min; Est GFR (African American) 53.2; Est GFR (Non-African American) 45.9; Magnesium 2.2 mg/dl (1.8-2.4); Potassium 4.5 mmol/L (3.5-5.1)
[2021-03-15 16:40] LABS: Bilirubin,Total 0.6 mg/dl (0.2-1); Globulin 3.6 gm/dl (2.5-4.0); Thyroid Stimulating Hormone 5.62 uIu/ml (0.300-4.500); Total Protein 7.2 gm/dl (6.4-8.2); Troponin I 0.101 ng/ml (0-0.045)
[2021-03-15] MEDS ORDERED: Heparin IV Adult Wt-Based Standard WITH Bolus Protocol STA (16:49)
[2021-03-15] MEDS ORDERED: METOPROLOL TARTRATE 50 MG TAB PO STA (16:51)
[2021-03-15 16:55] LABS: T4 Free Thyroxine 0.92 ng/dl (0.8-1.6)
[2021-03-15] MEDS ORDERED: HEPARIN SOD (PORCINE) 1000 UNIT/ML IV ONE ×3 (17:05→17:15)
[2021-03-15 17:19] LABS: Influenza A virus by PCR Negative (Neg); Influenza B virus by PCR Negative (Neg); RSV by PCR Negative (Neg); SARS CoV2 RNA(COVID-19) InHosp NEGATIVE (Negative)
[2021-03-15] MEDS: HEPARIN SODIUM/DEXTROSE 25,000 UNITS/500 ML BAG IV SCH (17:19)
[2021-03-15 17:33] LABS: Partial Thromboplastin Time 26.1 Seconds (21.0-31.0)
--- NOTE | 2021-03-15 17:39 | History & Physical Report ---
Date of Service March 15, 2021 Assessment & Plan (1) Atrial fibrillation with rapid ventricular response: (2) LBBB (left bundle branch block): (3) Elevated troponin: This is a 75-year-old male who has significant past medical history of CAD with CABG x2 FOLEY to LAD and vein graft to OM, history of PCI to LAD/RCA 2019, ischemic cardiomyopathy with EF 40 to 45%, history of nonsustained SVT, history of CVA/TIA on dual antiplatelet therapy, PAF, T2DM, HTN, HLD, bilateral asymptomatic carotid artery stenosis, chronic high-grade stenosis of intracranial arteries who presents ED due to shortness of breath and a feeling x1 day. Patient with A. fib RVR, initial rates in 150s Received Toprol tartrate IV 2.5x2, oral metoprolol tartrate 25 mg Discussed with fuse cup expander Dr. Corey Admit to PCU Continue IV heparin drip Initiate IV diltiazem drip Consult cardiology Obtain echocardiogram Cycle troponin, likely elevated in setting of demand ischemia Electrolytes acceptable (4) Coronary artery disease: (5) Ischemic cardiomyopathy: CAD with history of CABG x2 FOLEY to LAD and vein graft to OM PCI to LAD and RCA in 2019 Most recent echocardiogram revealed EF 40 to 45%, well compensated no signs or symptoms of CHF Continue ASA, Plavix, statin and losartan Obtain echocardiogram Patient with new left bundle, discussed with cardiology Dr. Corey likely in setting of rate Monitor EKG, cycle trops (6) Diabetes mellitus, type 2: Last A1c 6.3 on 05/11/2020 Obtain A1c in a.m., hold Metformin NovoLog per protocol (7) CVA (cerebral vascular accident): With residual sensory right upper extremity deficit Continue ASA, Plavix, statin Per neurology permissive hypertension recommended secondary to chronic high- grade stenosis in bilateral MCA territory (8) Hypertension: Blood pressure adequate Continue losartan (9) Dyslipidemia: Continue statin (10) CKD (chronic kidney disease) stage 3, GFR 30-59 ml/min: Baseline creatinine 1.2-1.4 BUN/creatinine 25 and 1.49 today Receiving gentle IV fluid in ED Monitor renal function (11) DVT prophylaxis: Heparin gtt Dispo: PCU PCP: Arabella Full Code Pt was seen and examined in collaboration with Dr. Silva, please see addendum History of Present Illness Chief Complaint: SOB and ill feeling x 1 day. Primary Care Provider: Chava Bell MD This is a 75-year-old male who has significant past medical history of CAD with CABG x2 FOLEY to LAD and vein graft to OM, history of PCI to LAD/RCA 2018, ischemic cardiomyopathy with EF 40 to 45%, history of nonsustained SVT, history of CVA/TIA on dual antiplatelet therapy, PAF, T2DM, HTN, HLD, bilateral asymptomatic carotid artery stenosis, chronic high-grade stenosis of intracranial arteries who presents ED due to shortness of breath and a feeling x1 day. Over the past 2 days he has felt generally weak. Today he developed dyspnea on exertion, lightheadedness, "fuzzy vision." He took blood pressure at home and it was on lower side and his heart rate was, "all over the place." He called into PCP who recommended he be evaluated in ED. is at bedside and is concerned due to prior history of NE where he did not present with chest pain but required eventual bypass. He does recall history of A. fib in the past re quiring anticoagulation but is unsure why he was taken off. He also has past history of CVA approximately 45 years ago with some residual sensory defect and right-sided facial droop. He denies any recent illness, fever, chills, sweats, current lightheadedness, dizziness or syncope, shortness of breath at rest, cough, hemoptysis, nausea, vomiting, abdominal pain. He took his medications today. He has been compliant with his dual antiplatelet regimen of aspirin and Plavix. In ED patient was found to be in A. fib with RVR with heart rates in the 150s. Lab work notable for elevated troponin 0.101, BUN 25, creatinine 149. EKG revealed A. fib with RVR and new left bundle branch block. Patient denies any chest pain and also denied any chest pain with exertion. He has not required any nitroglycerin at home. In ED he was started on IV heparin drip with bolus. He was also received oral Lopressor and a dose of IV Lopressor. Allergies Allergy/AdvReac Type Severity Reaction Status Date / Time No Known Allergies Allergy Verified 03/15/21 17:18 Home Medications Medication Instructions Recorded Confirmed Type isosorbide mononitrate 30 mg PO QAM #0 tab 08/12/14 03/15/21 History gabapentin 300 mg PO TID #0 cap 03/20/16 03/15/21 History metformin 500 mg PO BID #0 tab 02/10/17 03/15/21 History acetaminophen [Acetaminophen Extra 1,000 mg PO UD PRN #0 tab 08/15/17 03/15/21 History Strength] nitroglycerin 0.4 mg SUBLINGUAL Q5M PRN #0 08/15/17 03/15/21 History rosuvastatin 40 mg PO HS 03/30/19 03/15/21 History tamsulosin 0.4 mg PO DAILY 03/30/19 03/15/21 History docusate sodium 100 mg PO BID #14 cap 04/03/19 03/15/21 Rx clopidogrel 75 mg PO DAILY 03/15/21 03/15/21 History cyanocobalamin (vitamin B-12) 1,000 mcg PO DAILY 03/15/21 03/15/21 History gabapentin 800 mg PO TID 03/15/21 03/15/21 History indomethacin 50 mg PO TID PRN 03/15/21 03/15/21 History losartan 25 mg PO DAILY 03/15/21 03/15/21 History montelukast 10 mg PO DAILY 03/15/21 03/15/21 History amiodarone 200 mg PO BID 30 Days #60 tab 03/18/21 Rx apixaban [Eliquis] 5 mg PO BID 30 Days #60 tab 03/18/21 Rx Past Med/Surg History Medical History CKD (chronic kidney disease) stage 3, GFR 30-59 ml/min CVA (cerebral vascular accident) Diabetes Diabetes mellitus, type 2 Dyslipidemia GERD (gastroesophageal reflux disease) GERD (gastroesophageal reflux disease) Gout HTN (hypertension) Hypertension Paroxysmal A-fib TIA (transient ischemic attack) Surgical History H/O umbilical hernia repair x2 History of coronary artery stent placement LAD and RCA 2019 History of Amie fundoplication S/P CABG x 2 S/P repair of paraesophageal hernia Status post cataract extraction Status post tonsillectomy Family History Mother Stroke Social History Smoking Status: Former smoker Second Hand Exposure: No; Hx Alcohol Use: Yes Alcohol type: beer Hx Substance Use: No Preferred Language: Angolan Communication Ability: Effective Scaffold Setter Required: No Beliefs That Will Affect Care: None Current Living Situation: Spouse current occupation: Retired Feels Safe at Home: Yes Assistive Devices: None Review of Systems Review of Systems: All systems reviewed & are unremarkable except as noted in HPI & below Physical Exam Physical Exam: Constitutional: WD/WN, vitals as above, NAD, sitting up in bed, pleasant, conversing easily Head: Normocephalic, Atraumatic Eyes: PERRL, conjunctivae normal, anicteric sclerae ENMT: external ear and nose normal, oropharynx normal Neck: trachea midline, no thyromegaly normal visual inspection Respiratory: normal respiratory effort, lungs clear to auscultation, no wheeze, rales, rhonchi. Normal insp/exp effort, no accessory muscle use Cardiovascular: Irregular rate, irregular rhythm, no murmur, no edema Vessels: no JVD or carotid bruit Chest: normal inspection of chest Abdomen: normal bowel sounds, soft, nontender, no hepatosplenomegaly Musculoskeletal: no cyanosis or clubbing, extremities motor strength 5/5 Skin: no rashes, warm and dry normal turgor Neurologic: PERRL, EOMI, accommodation nl, no face palsy, no dysarthria CN's II-XI intact bilaterally and moves all extremities Psychiatric: A+Ox3, euthymic affect Lymphatic: no cervical or axillary lymphadenopathy : deferred Results & Data Results & Data ([facility]) Vital Signs (Past 12 Hours) Vital Signs Temp Pulse Resp BP Pulse Ox 03/15/21 16:45 96 H 15 121/95 99 03/15/21 16:30 109 H 15 137/87 97 03/15/21 16:23 116 H 17 124/76 98 03/15/21 16:20 120 H 15 98 03/15/21 16:10 113 H 17 90 03/15/21 16:08 138 H 15 98 03/15/21 15:59 117 H 17 123/94 98 03/15/21 15:48 36.7 C 106 H 20 141/83 H 99 Medications Administered Sodium Chloride (Nss 1000ml) 1,000 mls @ 125 mls/hr IV .Q8H STA Stop: 03/16/21 00:12 Last Admin: 03/15/21 16:28 Dose: 125 mls/hr Documented by: [id number] Heparin Sodium/Dextrose (Heparin Sodium/Dextrose) 25,000 units in 500 mls @ 35 mls/hr IV .[id number] [facility]; Protocol Stop: 04/14/21 17:04 Last Admin: 03/15/21 17:19 Dose: 1,750 units/hr, 35 mls/hr Documented by: [id number] Cosigned by: [id number] Discontinued Medications Heparin Sodium (Porcine) (Heparin Sod (Porcine) 1000 Unit/Ml 10 Ml Vial) 5,000 units IV NOW ONE Stop: 03/15/21 17:16 Last Admin: 03/15/21 17:21 Dose: 5,000 units Documented by: [id number] Cosigned by: [id number] Heparin Sodium/Dextrose (Heparin Iv Adult Wt-Based Standard With Bolus Protocol) 1 ea N/A NOW ; Protocol Stop: 03/15/21 16:50 Last Admin: 03/15/21 17:22 Dose: Not Given Documented by: [id number] Sodium Chloride (Nss 1000ml) 500 mls @ 999 mls/hr IV .Q31M ONE Stop: 03/15/21 16:43 Last Infusion: 03/15/21 16:59 Dose: 999 mls/hr Documented by: [id number] Admin: 03/15/21 16:27 Dose: 999 mls/hr Documented by: [id number] Metoprolol Tartrate (Metoprolol Tartrate 1 Mg/Ml Vial) 2.5 mg IV NOW STA Stop: 03/15/21 16:14 Last Admin: 03/15/21 16:24 Dose: 2.5 mg Documented by: [id number] Metoprolol Tartrate (Metoprolol Tartrate 50 Mg Tab) 25 mg PO NOW STA Stop: 03/15/21 16:52 Last Admin: 03/15/21 17:15 Dose: 25 mg Documented by: [id number] Metoprolol Tartrate (Metoprolol Tartrate 1 Mg/Ml Vial) 2.5 mg IV NOW STA Stop: 03/15/21 17:09 Last Admin: 03/15/21 17:16 Dose: 2.5 mg Documented by: [id number] ECG Rate (beats per minute): 144 Rhythm: atrial fibrillation Findings: + LBBB COVID-19 Results Results COVID-19 Adm Lab Results: RBC 4.67 M/uL (4.7-6.1) L 03/16/21 WBC 5.20 K/uL (4.8-10.8) 03/16/21 Hgb 14.4 g/dL (14.0-18.0) 03/16/21 Hct 41.7 % (42-52) L 03/16/21 Plt Count 175 K/uL (130-400) 03/16/21 Neutrophils (%) (Auto) 61.6 % 03/15/21 Lymphocytes (%) (Auto) 26.3 % 03/15/21 Monocytes # (Auto) 0.73 K/uL (0.11-0.59) H 03/15/21 Eosinophils # (Auto) 0.11 K/uL (0-0.5) 03/15/21 Immature Granulocyte % (Auto) 0.0 % 03/15/21 Neutrophils # (Auto) 4.48 K/uL (1.4-6.5) 03/15/21 Lymphocytes # (Auto) 1.91 K/uL (1.2-3.4) 03/15/21 Monocytes # (Auto) 0.73 K/uL (0.11-0.59) H 03/15/21 Eosinophils # (Auto) 0.11 K/uL (0-0.5) 03/15/21 Basophils # (Auto) 0.04 K/uL (0-0.2) 03/15/21 Immature Granulocyte # (Auto) 0.00 K/uL (0.00-0.02) 03/15/21 Na 144 mmol/L (136-145) 03/16/21 K 4.1 mmol/L (3.5-5.1) 03/16/21 Cl 115 mmol/L (98-107) H 03/16/21 CO2 27 mmol/L (21-32) 03/16/21 Anion Gap 2.0 (3-11) L 03/16/21 BUN 22 mg/dl (7-18) H 03/16/21 Creatinine 1.13 mg/dl (0.6-1.4) 03/16/21 BUN/Creatinine Ratio 19.2 (10-20) 03/16/21 Glucose Level 95 mg/dl (70-99) 03/16/21 Ca 8.5 mg/dl (8.5-10.1) 03/16/21 Total Bilirubin 0.6 mg/dl (0.2-1) 03/15/21 AST/SGOT 20 U/L (15-37) 03/15/21 ALT/SGPT 23 U/L (12-78) 03/15/21 Alkaline Phosphatase 77 U/L (45-117) 03/15/21 Total Protein 7.2 gm/dl (6.4-8.2) 03/15/21 Albumin 3.6 gm/dl (3.4-5.0) 03/15/21 Globulin 3.6 gm/dl (2.5-4.0) 03/15/21 Albumin/Globulin Ratio 1.0 (0.9-2) 03/15/21 Troponin I 0.128 ng/ml (0-0.045) H* 03/16/21 PTT 42.6 Seconds (21.0-31.0) H 03/16/21 INR 1.0 (0.9-1.1) 03/15/21 COVID-19 PCR NEGATIVE (Negative) 03/15/21 Influenza Virus Type A (PCR) Negative (Neg) 03/15/21 Influenza Virus Type B (PCR) Negative (Neg) 03/15/21 Chest X-Ray 03/15/21 Code Status & VTE Plan Code Status Full Code VTE Prophylaxis Plan VTE Prophylaxis will be ordered: No Supervising Physician Co-Signing Physician Notes Pt was seen and examined. Agreed with Cristina CANALES exam, assessment and plan. 75-year-old male with significant past medical history of CAD with CABG x2 FOLEY to LAD and vein graft to OM, history of PCI to LAD/RCA 2018, ischemic cardiomyopathy with EF 40 to 45%, history of nonsustained SVT, history of CVA/TIA on dual antiplatelet therapy, PAF, T2DM, HTN, HLD, bilateral asymptomatic carotid artery stenosis, chronic high-grade stenosis of intracranial arteries who presents ED with c/o shortness of breath. Pt said that for the last 2 days he has been having SOB with exertion associated with weakness. and lightheadedness. He said that he checked his vital and his heart rate was all over the place. Pt said that in the past he remembered that he had Afib and was on anticoagulant. He could not remember why the anticoagulant was stopped. In ED patient was found to be in A. fib with RVR with heart rates in the 150s. Lab on admission showed elevated troponin 0.101, BUN 25, creatinine 149. EKG revealed A. fib with RVR and new left bundle branch block. Patient denies any chest pain and also denied any chest pain with exertion. In ED he was started on IV heparin drip with bolus and IV Lopressor was given. IV cardizem drip was started. Will continue IV Cardizem and Heparin drip. Will consult cardiology. Will get a resting ECHO in am.Will keep pt NPO after midnight. Will continue monitor closely in Telemetry. MD Ricardo
[2021-03-15] MEDS ORDERED: STAT IV Infusion **Titration per Protocol STA (17:49)
[2021-03-15] MEDS ORDERED: dilTIAZem HCl 5 MG/ML 5 ML VIAL IV STA (17:49)
[2021-03-15] MEDS ORDERED: dilTIAZem HCL 125 MG in DEXTROSE 5% 100 ML IV SCH (18:00)
--- NOTE | 2021-03-15 19:20 | XRay Report ---
XR chest 1V portable CLINICAL HISTORY: Shortness of breath COMPARISON STUDY: 03/30/2019 FINDINGS: The heart is enlarged. There are postsurgical changes of a midline sternotomy. There is a t horacic scoliosis. There is no failure. There is no focal pulmonary consolidation. There are no pleur al effusions.[ IMPRESSION: Cardiomegaly. No evidence of focal pulmonary consolidation. ACT 112: Negative or not required by law. Electronically signed by: Obdulio Ardon M.D. 03/15/2021 7:19 PM
[2021-03-15] MEDS ORDERED: DEXTROSE 50% 50 ML SYRINGE IV PRN (20:46)
[2021-03-15] MEDS ORDERED: ALUMINUM/MAGNESIUM SUSP 30 ML UDC PO PRN (20:46)
[2021-03-15] MEDS ORDERED: POLYETHYLENE (MIRALAX) 17 GM PACK PO PRN (20:46)
[2021-03-15] MEDS ORDERED: ONDANSETRON INJ 2 MG/ML 2 ML VIAL IV PRN (20:46)
[2021-03-15] MEDS ORDERED: CARBOHYDRATES FOR HYPOGLYCEMIA PO PRN (20:46)
[2021-03-15] MEDS ORDERED: MAGNESIUM HYDROXIDE SUSP 30 ML UDC PO PRN (20:46)
[2021-03-15] MEDS ORDERED: HEPARIN SODIUM/DEXTROSE 25,000 UNITS/500 ML BAG IV SCH (20:46)
[2021-03-15] MEDS ORDERED: ACETAMINOPHEN 325 MG TAB PO PRN (20:46)
[2021-03-15] MEDS ORDERED: GLUCOSE 40% GEL 15 GM TUBE PO PRN (20:46)
[2021-03-15] MEDS ORDERED: Heparin IV Adult Wt-Based Standard *NO* Bolus Protocol ONE (20:46)
[2021-03-15] MEDS ORDERED: GLUCAGON FOR INJ 1 MG VIAL SQ PRN (20:46)
[2021-03-15] MEDS ORDERED: GLUCOSE 10 TABS/TUBE PO PRN (20:46)
[2021-03-15] MEDS ORDERED: PNEUMOCOCCAL ADMINISTRATION CHARGE ONE (21:18)
[2021-03-15] MEDS ORDERED: PNEUMOCOCCAL POLYSACCHARIDES 25 MCG/0.5 ML VIAL/SYR IM ONE (21:18)
[2021-03-15] MEDS: INSULIN ASPART 100 UNITS/ML 3 ML PEN SC SCH (21:34)
[2021-03-15] MEDS: ROSUVASTATIN CALCIUM 20 MG TAB PO SCH (21:40)
[2021-03-15] MEDS: GABAPENTIN 300 MG CAP PO SCH (21:40)
[2021-03-15] MEDS: GABAPENTIN 800 MG TAB PO SCH (21:40)
[2021-03-16 00:54] LABS: Partial Thromboplastin Ratio 2.7
[2021-03-16 01:04] LABS: Partial Thromboplastin Time 70.3 Seconds (21.0-31.0)
[2021-03-16 04:31] LABS: Hematocrit (blood only) 41.7 % (42-52); Hemoglobin 14.4 g/dL (14.0-18.0); Mean Corpuscular Hemoglobin 30.8 pg (25-34); Mean Corpuscular Hgb Conc 34.5 g/dL (32-36); Mean Corpuscular Volume 89.3 fL (80-100); Mean Platelet Volume 11.4 fL (7.4-10.4); Platelet Count 175 K/uL (130-400); RDW Coefficient of Variation 14.4 % (11.5-14.5); Red Blood Count 4.67 M/uL (4.7-6.1)
[2021-03-16 04:49] LABS: Est GFR (African American) 74.3; Potassium 4.1 mmol/L (3.5-5.1)
[2021-03-16 04:50] LABS: BUN Creatinine Ratio 19.2 (10-20); Calcium 8.5 mg/dl (8.5-10.1); Creatinine Clr Calc Pharmacy 79.5 ml/min; Est GFR (Non-African American) 64.1; Magnesium 2.1 mg/dl (1.8-2.4)
[2021-03-16 04:56] LABS: Troponin I 0.194 ng/ml (0-0.045)
[2021-03-16] MEDS: INSULIN ASPART 100 UNITS/ML 3 ML PEN SC SCH ×4 (07:37→20:30)
[2021-03-16] MEDS: HEPARIN SODIUM/DEXTROSE 25,000 UNITS/500 ML BAG IV SCH ×2 (07:38→12:09)
[2021-03-16] MEDS: GABAPENTIN 800 MG TAB PO SCH ×3 (07:40→20:32)
[2021-03-16] MEDS: ISOSORBIDE MONO EXTENDED REL 30 MG TABCR PO SCH (07:40)
[2021-03-16] MEDS: CYANOCOBALAMIN 500 MCG TABLET (VITAMIN B-12) PO SCH (07:41)
[2021-03-16] MEDS: MONTELUKAST SODIUM 10 MG TABLET PO SCH (07:41)
[2021-03-16] MEDS: CLOPIDOGREL BISULFATE 75 MG TAB PO SCH (07:41)
[2021-03-16] MEDS: TAMSULOSIN HCL 0.4 MG CAP PO SCH (07:41)
[2021-03-16] MEDS: LOSARTAN POTASSIUM 25 MG TAB PO SCH (07:41)
[2021-03-16] MEDS: GABAPENTIN 300 MG CAP PO SCH ×3 (07:42→20:31)
[2021-03-16 07:56] LABS: Estimated Average Glucose 137 mg/dl; Hemoglobin A1C 6.4 % (4.5-5.6)
[2021-03-16 08:42] LABS: Partial Thromboplastin Ratio 2.6
[2021-03-16 08:44] LABS: Partial Thromboplastin Time 68.5 Seconds (21.0-31.0)
[2021-03-16] MEDS ORDERED: ASPIRIN 81 MG ECTAB PO SCH (09:00)
--- NOTE | 2021-03-16 10:04 | Cardiology Consultation ---
Date of Consultation March 16, 2021 Assessment & Plan (1) Atrial fibrillation with rapid ventricular response: (2) LBBB (left bundle branch block): (3) CKD (chronic kidney disease) stage 3, GFR 30-59 ml/min: (4) Elevated troponin: (5) Stenosis of left internal carotid artery: (6) Ischemic cardiomyopathy: (7) S/P CABG x 2: (8) CVA (cerebral vascular accident): Mr. Becerra is suffering from symptomatic atrial fibrillation with rapid ventricular response and a new rate related bundle. I do believe he would improve symptomatically with cardioversion to sinus rhythm. Given the fact that we do not know for certain how long he has been in A. fib obviously the risk of left atrial appendage thrombus must be taken into account. So at this point after discussing our treatment options with both the patient and his it was agreed that he would like to follow with rhythm control s trategy. So we will perform a PABLO guided cardioversion the procedure, risks, benefits and alternatives were discussed at great lengths. The patient is both state that they agree with the above plan and would like to proceed. Further recommendations to follow PABLO and hopefully cardioversion Patient will likely be discharged with Eliquis and possible amiodarone which was helpful in maintaining sinus rhythm when he was in A. fib in the postoperative state several years ago. History of Present Illness Attending Physician: Beth Silva MD History of Present Illness Mr. Becerra is a very pleasant 75-year-old gentleman who routinely follows with myself as an outpatient for his history of coronary artery disease and ischemic cardiomyopathy. He presented to the emergency department with complaints of fatigue and dizziness. He states he has been in his normal state of health until a few days ago when he started feeling rundown and tired while taking care of his 2 granddaughters. The day prior to presentation he started developing some dizziness and some visual changes. He called his PCP who recommended ER evaluation. Upon presentation he was found to be in atrial fibrillation with rapid ventricular response and a new left bundle branch block likely rate related. He was started on heparin and Cardizem drips as per my direction and admitted to telemetry. Overnight he states he has been feeling well at rest. Upon further questioning he denies any recent chest pain, shortness of breath, palpitations or lightheadedness. He has been compliant with his medications and otherwise feeling well. PAST MEDICAL HISTORY: 1. Coronary artery disease status post CABG x2 with a FOLEY to the LAD and vein graft to the OM with followup ST segment elevation NC and collapse of the vein graft 2. PCI to the LAD and RCA March 2019 revealing a patent FOLEY 3. Nonsustained ventricular tachycardia 4. Ischemic cardiomyopathy [id number]% 5. Carotid artery stenosis 6. History of CVA and likely recent TIA 7. Peripheral arterial disease with failed PTCA of the arteries of his hip under questionable circumstances at an outside facility 8. Paroxysmal atrial fibrillation 9. Diabetes 10. No flow in bilateral middle cerebral arteries with collateralization sugge stive of chronic high-grade stenosis and/or occlusion. Neurology recommending permissive hypertension to increased cerebral flow. Allergies Allergy/AdvReac Type Severity Reaction Status Date / Time No Known Allergies Allergy Verified 03/15/21 17:18 Home Medications Medication Instructions Recorded Confirmed Type isosorbide mononitrate 30 mg PO QAM #0 tab 08/12/14 03/15/21 History aspirin [Aspirin Low Dose] 81 mg PO DAILY #0 09/11/14 03/15/21 History gabapentin 300 mg PO TID #0 cap 03/20/16 03/15/21 History metformin 500 mg PO BID #0 tab 02/10/17 03/15/21 History acetaminophen [Acetaminophen Extra 1,000 mg PO UD PRN #0 tab 08/15/17 03/15/21 History Strength] nitroglycerin 0.4 mg SUBLINGUAL Q5M PRN #0 08/15/17 03/15/21 History rosuvastatin 40 mg PO HS 03/30/19 03/15/21 History tamsulosin 0.4 mg PO DAILY 03/30/19 03/15/21 History docusate sodium 100 mg PO BID #14 cap 04/03/19 03/15/21 Rx clopidogrel 75 mg PO DAILY 03/15/21 03/15/21 History cyanocobalamin (vitamin B-12) 1,000 mcg PO DAILY 03/15/21 03/15/21 History gabapentin 800 mg PO TID 03/15/21 03/15/21 History indomethacin 50 mg PO TID PRN 03/15/21 03/15/21 History losartan 25 mg PO DAILY 03/15/21 03/15/21 History montelukast 10 mg PO DAILY 03/15/21 03/15/21 History Patient History Medical History CKD (chronic kidney disease) stage 3, GFR 30-59 ml/min CVA (cerebral vascular accident) Diabetes Diabetes mellitus, type 2 Dyslipidemia GERD (gastroesophageal reflux disease) GERD (gastroesophageal reflux disease) Gout HTN (hypertension) Hypertension Paroxysmal A-fib TIA (transient ischemic attack) Surgical History H/O umbilical hernia repair x2 History of coronary artery stent placement LAD and RCA 2019 History of Amie fundoplication S/P CABG x 2 S/P repair of paraesophageal hernia Status post cataract extraction Status post tonsillectomy Family History Mother Stroke Social History Smoking Status: Former smoker Second Hand Exposure: No; Do You Dip or Chew Tobacco: No; Tobacco Cessation Education Requested by Patient: No Hx Alcohol Use: Yes Alcohol type: beer Hx Substance Use: No Preferred Language: French Communication Ability: Effective Sports Therapist Required: No Beliefs That Will Affect Care: None Current Living Situation: Spouse current occupation: Retired Other Information That Helps Us Care for You: No Feels Safe at Home: Yes Safety Concerns: Feels Safe At This Time Assistive Devices: Hearing Aid - Left and Hearing Aid - Right Review of Systems Review of Systems: All systems reviewed & are unremarkable except as noted in HPI & below Physical Exam Physical Exam: General: Awake, alert and oriented x 3. No acute distress. HEENT: Normocephalic, atraumatic. Pupils equal, round and reactive to light and accommodation. Extraocular muscles are intact. Anicteric sclera. Moist mucous membranes. Neck: No JVD. No bruit. Cardiovascular: irregularly irregular, unable to appreciate murmur, rub or gallop. Pulmonary: Clear to auscultation bilaterally. No rales, rhonchi, or wheezing. Abdomen: Bowel sounds x 4, soft. No rebound, guarding or tenderness. No organomegaly. Extremities: No clubbing, cyanosis or edema. +2 pedal pulses bilaterally. Skin: Warm and dry. Results & Data ([facility]) Vital Signs (Past 12 Hours) Vital Signs Temp Pulse Pulse Resp BP Pulse Ox 03/16/21 03:51 36.5 C 03/16/21 03:49 82 17 157/90 H 96 03/16/21 01:10 78 03/16/21 00:36 74 03/15/21 23:33 36.5 C 03/15/21 23:30 81 16 128/74 97 Laboratory Results Laboratory Results - last 24 hr 03/15/21 03/15/21 03/15/21 15:55 15:55 15:55 WBC 7.27 RBC 4.82 Hgb 14.9 Hct 43.5 MCV 90.2 MCH 30.9 MCHC 34.3 RDW Std Deviation 47.1 H RDW Coeff of Leela 14.2 Plt Count 188 MPV 10.8 H Immature Gran % (Auto) 0.0 Neut % (Auto) 61.6 Lymph % (Auto) 26.3 [place] % (Auto) 10.0 Eos % (Auto) 1.5 Baso % (Auto) 0.6 Neut # (Auto) 4.48 Lymph # (Auto) 1.91 [place] # (Auto) 0.73 H Eos # (Auto) 0.11 Baso # (Auto) 0.04 Immature Gran # (Auto) 0.00 PT 10.0 INR 1.0 APTT 26.1 PTT Ratio 1.0 Sodium 140 Potassium 4.5 Chloride 108 H Carbon Dioxide 29 Anion Gap 3.0 BUN 25 H Creatinine 1.49 H Est Cr Clr Drug Dosing 60.1 Est GFR ( Amer) 53.2 Est GFR (Non-Af Amer) 45.9 BUN/Creatinine Ratio 16.9 Glucose 85 POC Glucose Estimat Average Glucose Hemoglobin A1c Calcium 8.6 Magnesium 2.2 Total Bilirubin 0.6 AST 20 ALT 23 Alkaline Phosphatase 77 Troponin I 0.101 H* Total Protein 7.2 Albumin 3.6 Globulin 3.6 Albumin/Globulin Ratio 1.0 TSH 5.620 H Free T4 0.92 COVID-19 Eval Order SARS-CoV-2 (PCR) Influenza Type A (PCR) Influenza Type B (PCR) RSV (RT-PCR) 03/15/21 03/15/21 03/15/21 16:22 16:22 20:59 WBC RBC Hgb Hct MCV MCH MCHC RDW Std Deviation RDW Coeff of Leela Plt Count MPV Immature Gran % (Auto) Neut % (Auto) Lymph % (Auto) [place] % (Auto) Eos % (Auto) Baso % (Auto) Neut # (Auto) Lymph # (Auto) [place] # (Auto) Eos # (Auto) Baso # (Auto) Immature Gran # (Auto) PT INR APTT PTT Ratio Sodium Potassium Chloride Carbon Dioxide Anion Gap BUN Creatinine Est Cr Clr Drug Dosing Est GFR ( Amer) Est GFR (Non-Af Amer) BUN/Creatinine Ratio Glucose POC Glucose 103 H Estimat Average Glucose Hemoglobin A1c Calcium Magnesium Total Bilirubin AST ALT Alkaline Phosphatase Troponin I Total Protein Albumin Globulin Albumin/Globulin Ratio TSH Free T4 COVID-19 Eval Order CovFluRsv at [facility] SARS-CoV-2 (PCR) NEGATIVE Influenza Type A (PCR) Negative Influenza Type B (PCR) Negative RSV (RT-PCR) Negative 03/15/21 03/16/21 03/16/21 21:04 00:17 03:52 WBC 5.20 RBC 4.67 L Hgb 14.4 Hct 41.7 L MCV 89.3 MCH 30.8 MCHC 34.5 RDW Std Deviation 47.0 H RDW Coeff of Leela 14.4 Plt Count 175 MPV 11.4 H Immature Gran % (Auto) Neut % (Auto) Lymph % (Auto) [place] % (Auto) Eos % (Auto) Baso % (Auto) Neut # (Auto) Lymph # (Auto) [place] # (Auto) Eos # (Auto) Baso # (Auto) Immature Gran # (Auto) PT INR APTT 70.3 H* PTT Ratio 2.7 Sodium Potassium Chloride Carbon Dioxide Anion Gap BUN Creatinine Est Cr Clr Drug Dosing Est GFR ( Amer) Est GFR (Non-Af Amer) BUN/Creatinine Ratio Glucose POC Glucose Estimat Average Glucose Hemoglobin A1c Calcium Magnesium Total Bilirubin AST ALT Alkaline Phosphatase Troponin I 0.166 H* Total Protein Albumin Globulin Albumin/Globulin Ratio TSH Free T4 COVID-19 Eval Order SARS-CoV-2 (PCR) Influenza Type A (PCR) Influenza Type B (PCR) RSV (RT-PCR) 03/16/21 03/16/21 03/16/21 03:52 03:52 07:05 WBC RBC Hgb Hct MCV MCH MCHC RDW Std Deviation RDW Coeff of Leela Plt Count MPV Immature Gran % (Auto) Neut % (Auto) Lymph % (Auto) [place] % (Auto) Eos % (Auto) Baso % (Auto) Neut # (Auto) Lymph # (Auto) [place] # (Auto) Eos # (Auto) Baso # (Auto) Immature Gran # (Auto) PT INR APTT 68.5 H* PTT Ratio 2.6 Sodium 144 Potassium 4.1 Chloride 115 H Carbon Dioxide 27 Anion Gap 2.0 L BUN 22 H Creatinine 1.13 D Est Cr Clr Drug Dosing 79.5 Est GFR ( Amer) 74.3 Est GFR (Non-Af Amer) 64.1 BUN/Creatinine Ratio 19.2 Glucose 95 POC Glucose Estimat Average Glucose 137 Hemoglobin A1c 6.4 H Calcium 8.5 Magnesium 2.1 Total Bilirubin AST ALT Alkaline Phosphatase Troponin I 0.194 H* Total Protein Albumin Globulin Albumin/Globulin Ratio TSH Free T4 COVID-19 Eval Order SARS-CoV-2 (PCR) Influenza Type A (PCR) Influenza Type B (PCR) RSV (RT-PCR) 03/16/21 07:36 WBC RBC Hgb Hct MCV MCH MCHC RDW Std Deviation RDW Coeff of Leela Plt Count MPV Immature Gran % (Auto) Neut % (Auto) Lymph % (Auto) [place] % (Auto) Eos % (Auto) Baso % (Auto) Neut # (Auto) Lymph # (Auto) [place] # (Auto) Eos # (Auto) Baso # (Auto) Immature Gran # (Auto) PT INR APTT PTT Ratio Sodium Potassium Chloride Carbon Dioxide Anion Gap BUN Creatinine Est Cr Clr Drug Dosing Est GFR ( Amer) Est GFR (Non-Af Amer) BUN/Creatinine Ratio Glucose POC Glucose 95 Estimat Average Glucose Hemoglobin A1c Calcium Magnesium Total Bilirubin AST ALT Alkaline Phosphatase Troponin I Total Protein Albumin Globulin Albumin/Globulin Ratio TSH Free T4 COVID-19 Eval Order SARS-CoV-2 (PCR) Influenza Type A (PCR) Influenza Type B (PCR) RSV (RT-PCR) Medications Administered Current Inpatient Medications Acetaminophen (Acetaminophen 325 Mg Tab) 650 mg PO Q4H PRN PRN Reason: Pain or Fever Stop: 04/14/21 20:45 Al Hydrox/Mg Hydrox/Simethicone (Aluminum/Magnesium Susp 30 Ml Udc) 15 ml PO Q4H PRN PRN Reason: Dyspepsia Stop: 04/14/21 20:45 Aspirin (Aspirin 81 Mg Ectab) 81 mg PO DAILY GITA Stop: 04/15/21 08:59 Last Admin: 03/16/21 07:41 Dose: 81 mg Documented by: Clopidogrel Bisulfate (Clopidogrel Bisulfate 75 Mg Tab) 75 mg PO DAILY [facility] Stop: 04/15/21 08:59 Last Admin: 03/16/21 07:41 Dose: 75 mg Documented by: Cyanocobalamin (Cyanocobalamin 500 Mcg Tablet (Vitamin B-12)) 1,000 mcg PO DAILY [facility] Stop: 04/15/21 08:59 Last Admin: 03/16/21 07:41 Dose: 1,000 mcg Documented by: Dextrose (Dextrose 50% 50 Ml Syringe) 25 - 50 ml IV UD PRN; Protocol PRN Reason: Hypoglycemia Protocol Stop: 04/14/21 20:45 Gabapentin (Gabapentin 800 Mg Tab) 800 mg PO TID [facility] Stop: 04/14/21 20:59 Last Admin: 03/16/21 07:40 Dose: 800 mg Documented by: Gabapentin (Gabapentin 300 Mg Cap) 300 mg PO TID [facility] Stop: 04/14/21 20:59 Last Admin: 03/16/21 07:42 Dose: 300 mg Documented by: Glucagon (Glucagon For Inj 1 Mg Vial) 1 mg SQ UD PRN; Protocol PRN Reason: Hypoglycemia Protocol Stop: 04/14/21 20:45 Glucose (Glucose 10 Tabs/Tube) 4 - 8 tabs PO UD PRN; Protocol PRN Reason: Hypoglycemia Protocol Stop: 04/14/21 20:45 Glucose (Glucose 40% Gel 15 Gm Tube) 15 - 30 gm PO UD PRN; Protocol PRN Reason: Hypoglycemia Protocol Stop: 04/14/21 20:45 Heparin Sodium/Dextrose (Heparin Sodium/Dextrose) 25,000 units in 500 mls @ 31 mls/hr IV .Q16H8M [facility]; Protocol Stop: 04/14/21 17:04 Last Titration: 03/16/21 08:54 Dose: 1,550 units/hr, 31 mls/hr Documented by: Diltiazem HCl 125 mg/ Dextrose 125 mls @ 5 mls/hr IV .Q24H [facility]; Protocol Stop: 04/14/21 17:59 Last Titration: 03/16/21 07:38 Dose: 5 mg/hr, 5 mls/hr Documented by: Insulin Aspart (Insulin Aspart 100 Units/Ml 3 Ml Pen) 0 units SC ACHS [facility] Stop: 04/14/21 20:59 Last Admin: 03/16/21 07:37 Dose: Not Given Documented by: Isosorbide Mononitrate (Isosorbide [place] Extended Rel 30 Mg Tabcr) 30 mg PO QAM [facility] Stop: 04/15/21 08:59 Last Admin: 03/16/21 07:40 Dose: 30 mg Documented by: Losartan Potassium (Losartan Potassium 25 Mg Tab) 25 mg PO DAILY GITA Stop: 04/15/21 08:59 Last Admin: 03/16/21 07:41 Dose: 25 mg Documented by: Magnesium Hydroxide (Magnesium Hydroxide Susp 30 Ml Udc) 30 ml PO Q12H PRN PRN Reason: Constipation Stop: 04/14/21 20:45 Miscellaneous (Carbohydrates For Hypoglycemia ) 15 - 30 gm PO UD PRN PRN Reason: Hypoglycemia Protocol Stop: 04/14/21 20:45 Montelukast Sodium (Montelukast Sodium 10 Mg Tablet) 10 mg PO DAILY GITA Stop: 04/15/21 08:59 Last Admin: 03/16/21 07:41 Dose: 10 mg Documented by: Ondansetron HCl (Ondansetron Inj 2 Mg/Ml 2 Ml Vial) 4 mg IV Q6H PRN PRN Reason: Nausea Stop: 04/14/21 20:45 Polyethylene Glycol (Polyethylene (Miralax) 17 Gm Pack) 17 gm PO DAILY PRN PRN Reason: Constipation Stop: 04/14/21 20:45 Rosuvastatin Calcium (Rosuvastatin Calcium 20 Mg Tab) 40 mg PO HS GITA Stop: 04/14/21 20:59 Last Admin: 03/15/21 21:40 Dose: 40 mg Documented by: Tamsulosin HCl (Tamsulosin Hcl 0.4 Mg Cap) 0.4 mg PO DAILY GITA Stop: 04/15/21 08:59 Last Admin: 03/16/21 07:41 Dose: 0.4 mg Documented by:
--- NOTE | 2021-03-16 10:05 | History & Physical Bridge Note ---
Date of Service March 16, 2021 History & Physical Bridge Note I have examined the patient, reviewed the History & Physical and in the interval since the performance of the History & Physical I have noted the following changes of clinical significance: no changes noted
[2021-03-16] MEDS ORDERED: MIDAZOLAM HCL 5 MG/ML 1 ML VIAL ONE (10:38)
[2021-03-16] MEDS ORDERED: fentaNYL citrate 100 MCG/2 ML VIAL ONE ×2 (10:38→11:17)
--- NOTE | 2021-03-16 10:54 | Pre Anesthesia Assessment ---
Date of Service March 16, 2021 Pre Sedation Assessment Vital Signs Temp Pulse Pulse Resp BP BP Pulse Ox 03/16/21 10:40 96 H 18 162/90 H 96 03/16/21 10:00 93 H 17 03/16/21 09:00 91 H 18 03/16/21 08:21 104 H 24 144/103 H 03/16/21 08:00 115 H 20 03/16/21 07:55 36.7 C 95 H 19 144/103 H 95 03/16/21 07:00 82 8 L 03/16/21 06:45 83 9 L 03/16/21 03:51 36.5 C 03/16/21 03:49 82 17 157/90 H 96 03/16/21 01:10 78 03/16/21 00:36 74 03/15/21 23:33 36.5 C 03/15/21 23:30 81 16 128/74 97 03/15/21 21:16 78 03/15/21 20:56 36.6 C 88 20 129/87 95 03/15/21 18:45 86 15 130/100 98 03/15/21 18:41 107 H 16 130/94 95 03/15/21 18:21 118 H 13 120/80 99 03/15/21 18:00 109 H 15 154/108 H 98 03/15/21 17:45 109 H 15 153/95 H 99 03/15/21 17:30 104 H 17 128/87 96 03/15/21 17:15 104 H 17 134/107 H 95 03/15/21 17:00 117 H 15 140/89 98 03/15/21 16:45 96 H 15 121/95 99 03/15/21 16:30 109 H 15 137/87 97 03/15/21 16:23 116 H 17 124/76 98 03/15/21 16:20 120 H 15 98 03/15/21 16:10 113 H 17 90 03/15/21 16:08 138 H 15 98 03/15/21 15:59 117 H 17 123/94 98 03/15/21 15:48 36.7 C 106 H 20 141/83 H 99 Pre-Sedation Airway Assessment Smoking Status: Former smoker Hx Sleep Apnea: No Hx Difficult Intubation: No Short, Thick Neck: Yes Thyromental Distance: > or= 3.5 Finger Breadths Oral Cavity: + WNL Mallampati Class: I ASA: ASA3 NPO Status Date of Last Intake of Fluids: 03/15/21 Time of Last Intake of Fluids: 23:00 Date of Last Intake of Solid Food: 03/15/21 Time of Last Intake of Solid Foods: 23:00 Notes The planned sedation has been discussed with the patient. Informed Consent was obtained. I have identified the patient, determined the appropriateness of sedation and have assessed the patient immediately prior to the procedure. All medicine(s) and interventions are by my order.
--- NOTE | 2021-03-16 11:34 | Post Anesthesia Assessment ---
Date of Service March 16, 2021 Post Sedation Assessment Vital Signs Temp Pulse Pulse Resp BP BP Pulse Ox 03/16/21 11:30 98 H 15 132/66 97 03/16/21 11:28 110 H 15 138/85 98 03/16/21 11:25 98 H 15 132/78 98 03/16/21 11:20 106 H 15 140/78 98 03/16/21 11:18 99 H 15 149/89 H 97 03/16/21 11:14 119 H 18 146/99 H 99 03/16/21 11:11 97 H 18 148/84 H 97 03/16/21 11:08 102 H 24 140/106 H 97 03/16/21 10:40 96 H 18 162/90 H 96 03/16/21 10:00 93 H 17 03/16/21 09:00 91 H 18 03/16/21 08:21 104 H 24 144/103 H 03/16/21 08:00 115 H 20 03/16/21 07:55 36.7 C 95 H 19 144/103 H 95 03/16/21 07:00 82 8 L 03/16/21 06:45 83 9 L 03/16/21 03:51 36.5 C 03/16/21 03:49 82 17 157/90 H 96 03/16/21 01:10 78 03/16/21 00:36 74 03/15/21 23:33 36.5 C 03/15/21 23:30 81 16 128/74 97 03/15/21 21:16 78 03/15/21 20:56 36.6 C 88 20 129/87 95 03/15/21 18:45 86 15 130/100 98 03/15/21 18:41 107 H 16 130/94 95 03/15/21 18:21 118 H 13 120/80 99 03/15/21 18:00 109 H 15 154/108 H 98 03/15/21 17:45 109 H 15 153/95 H 99 03/15/21 17:30 104 H 17 128/87 96 03/15/21 17:15 104 H 17 134/107 H 95 03/15/21 17:00 117 H 15 140/89 98 03/15/21 16:45 96 H 15 121/95 99 03/15/21 16:30 109 H 15 137/87 97 03/15/21 16:23 116 H 17 124/76 98 03/15/21 16:20 120 H 15 98 03/15/21 16:10 113 H 17 90 03/15/21 16:08 138 H 15 98 03/15/21 15:59 117 H 17 123/94 98 03/15/21 15:48 36.7 C 106 H 20 141/83 H 99 Discharge Sedation Level of Care: Fast Track Phase II Post Sedation Plan On clinical assessment, the patient appears to have tolerated the sedation without complications. Patient is recovering as anticipated. Patient will continue to be monitored by nursing and may be discharged when sedation discharge criteria are met per below protocol. Upon Completions of procedure up to 15 minutes continue every 5 minute vital si gns and the P.A.R. score; then discharge to a Phase I or Fast Track to Phase II per the following guidelines: * Discharge Patient to appropriate Phase II area if PAR is 8 or greater or return to pre- procedure baseline. The post - procedure orders will be as directed. * If PAR score is less than 8 or not return to pre-procedure baseline then patient will follow Phase I monitoring till PAR is reached for Phase II. The Phase I may be done in procedure room or may call to secure a Phase I area. * If naloxone or flumazenil are used for reversal, hold in Phase I for continued monitoring from when last reversal dose was given for a minimum of 60 minutes or longer pending the nurse and/or physician discretion of patient condition before discharge to Phase II. Please call the Sedation Physician to re-evaluate and complete post-note for discharge to Phase II area. Do NOT discharge from procedure sedation or Phase 1 until post- sedation evaluation note is complete by procedure /sedation MD Sedation Discharge Instructions to be given to the patient at discharge to home.
--- NOTE | 2021-03-16 11:36 | Cardioversion ---
Date of Service March 16, 2021 Electrical Cardioversion Rpt Electrical Cardioversion Report Informed consent obtained. Patient prepped. Adequate moderate sedation achieved with a total of Versed 5 mg and fentanyl 125 mcg. PABLO performed which revealed no left atrial appendage thrombus. Patient repositioned. 360 J of synchronized direct-current energy was applied with successful cardioversion to sinus rhythm. Patient tolerated procedure well. To be recovered per protocol and return to telemetry bed. Start time: 1114 stop time: 1131 Plan: Return to telemetry. Continue heparin drip for now and initiate Eliquis therapy. Monitor on telemetry overnight.
[2021-03-16] MEDS: AMIODARONE 200 MG TAB PO SCH ×2 (13:15→17:00)
[2021-03-16 15:23] LABS: Partial Thromboplastin Ratio 1.6; Partial Thromboplastin Time 42.6 Seconds (21.0-31.0)
[2021-03-16] MEDS ORDERED: Nursing to Pharmacy Communication SCH (17:15)
[2021-03-16] MEDS ORDERED: METOPROLOL TARTRATE 25 MG TAB PO ONE (18:03)
--- NOTE | 2021-03-16 18:47 | Hospitalist Progress Note ---
Date of Service March 16, 2021 Assessment & Plan (1) Atrial fibrillation with rapid ventricular response: (2) LBBB (left bundle branch block): (3) Elevated troponin: This is a 75-year-old male who has significant past medical history of CAD with CABG x2 FOLEY to LAD and vein graft to OM, history of PCI to LAD/RCA 2019, ischemic cardiomyopathy with EF 40 to 45%, history of nonsustained SVT, history of CVA/TIA on dual antiplatelet therapy, PAF, T2DM, HTN, HLD, bilateral asymptomatic carotid artery stenosis, chronic high-grade stenosis of intracranial arteries who presents ED due to shortness of breath and a feeling x1 day. Present on admission with Afib with RVR Received Toprol tartrate IV 2.5x2, oral metoprolol tartrate 25 mg and metoprolol Cardizem drip and heparin were started on admission PABLO done showed no left atrial appendage thrombus S/P successful cardioversion by cardiology Starting on amiodarone 400mg TID Cardizem drip discontinued Will discontinue heparin drip and transition to eliquis 5mg BID Continue monitor in tele (4) Coronary artery disease: (5) Ischemic cardiomyopathy: CAD with history of CABG x2 FOLEY to LAD and vein graft to OM PCI to LAD and RCA in 2019 Most recent echocardiogram revealed EF 40 to 45%, well compensated no signs or symptoms of CHF Continue ASA, Plavix, statin and losartan (6) Diabetes mellitus, type 2: Last A1c 6.3 on 05/11/2020 Obtain A1c in a.m., hold Metformin NovoLog per protocol (7) CVA (cerebral vascular accident): With residual sensory right upper extremity deficit Continue ASA, Plavix, statin Per neurology permissive hypertension recommended secondary to chronic high- grade stenosis in bilateral MCA territory (8) Hypertension: Blood pressure adequate Continue losartan (9) Dyslipidemia: Continue statin (10) CKD (chronic kidney disease) stage 3, GFR 30-59 ml/min: Baseline creatinine 1.2-1.4 BUN/creatinine 25 and 1.49 today Receiving gentle IV fluid in ED Monitor renal function (11) DVT prophylaxis: Heparin gtt Dispo: PCU PCP: Arabella Full Code Admission and Anticipated Discharge Date Admission Date: March 15, 2021 Subjective Pt was seen and examined for follow up of Afib Lying in bed with no distress Pt said that he feels ok He had successful cardioverted today Denies any chest pain, palpitation, dizziness and SOB Review of Systems Review of Systems: All systems reviewed & are unremarkable except as noted in Subjective Physical Exam Physical Exam: General- No acute distress Head- atraumatic Eyes- PERRL, EOMI, ENT- oropharynx clear Neck- supple, no JVD Lungs- clear to auscultation Heart- regular rhythm; no murmur Abdomen- normal bowel sounds, soft, nontender Extremities- no calf tenderness Neuro- alert, oriented x 3; PERRL, EOMI; no facial palsy; no dysarthria Skin- warm & dry Results & Data Results & Data ([facility]) Vital Signs (Past 12 Hours) Vital Signs Temp Pulse Pulse Resp BP BP Pulse Ox 03/16/21 15:47 55 L 03/16/21 15:45 57 L 19 113/72 03/16/21 15:30 60 17 108/72 03/16/21 15:16 59 L 20 03/16/21 15:15 59 L 10 L 118/71 03/16/21 15:00 60 24 114/78 03/16/21 14:46 58 L 19 03/16/21 14:45 58 L 13 115/77 03/16/21 14:40 59 L 17 124/74 03/16/21 14:39 70 26 H 03/16/21 14:15 57 L 16 107/74 03/16/21 14:01 58 L 14 03/16/21 14:00 56 L 8 L 99/71 L 03/16/21 13:46 54 L 6 L 03/16/21 13:45 53 L 4 L 95/68 L 03/16/21 13:31 55 L 10 L 03/16/21 13:30 54 L 10 L 91/59 L 03/16/21 13:16 57 L 14 88/64 L 03/16/21 13:15 53 L 7 L 03/16/21 13:00 58 L 17 03/16/21 12:45 61 18 03/16/21 12:31 69 14 109/90 03/16/21 12:30 66 16 03/16/21 12:16 68 16 03/16/21 12:15 61 15 114/82 03/16/21 12:03 59 L 19 102/71 03/16/21 12:02 56 L 15 106/65 96 03/16/21 12:00 56 L 17 03/16/21 11:56 13 03/16/21 11:46 60 16 110/65 93 03/16/21 11:31 58 L 16 119/70 96 03/16/21 11:30 98 H 15 132/66 97 03/16/21 11:28 110 H 15 138/85 98 03/16/21 11:25 98 H 15 132/78 98 03/16/21 11:20 106 H 15 140/78 98 03/16/21 11:18 99 H 15 149/89 H 97 03/16/21 11:14 119 H 18 146/99 H 99 03/16/21 11:11 97 H 18 148/84 H 97 03/16/21 11:08 102 H 24 140/106 H 97 03/16/21 10:40 96 H 18 162/90 H 96 03/16/21 10:15 95 H 22 03/16/21 10:00 93 H 17 03/16/21 09:00 91 H 18 03/16/21 08:21 104 H 24 144/103 H 03/16/21 08:00 115 H 20 03/16/21 07:55 36.7 C 95 H 19 144/103 H 95 03/16/21 07:00 82 8 L
[2021-03-16] MEDS: APIXABAN 2.5 MG TAB PO SCH (20:31)
[2021-03-16] MEDS: ROSUVASTATIN CALCIUM 20 MG TAB PO SCH (20:32)
[2021-03-16] MEDS ORDERED: HEPARIN - STOP ORDER ONE (21:00)
--- NOTE | 2021-03-17 08:04 | Electrocardiogram Report ---
Test Reason : Blood Pressure : / mmHG Vent. Rate : 053 BPM Atrial Rate : 053 BPM P-R Int : 166 ms QRS Dur : 106 ms QT Int : 484 ms P-R-T Axes : 028 002 105 degrees QTc Int : 454 ms Sinus bradycardia Possible Left atrial enlargement Abnormal ECG When compared with ECG of 16-MAR-2021 05:55, (unconfirmed) Sinus rhythm has replaced Atrial fibrillation Vent. rate has decreased BY 36 BPM Confirmed by Steven Hensley ([id number]) on 03/16/2021 12:24:22 PM Also confirmed by Steven Hensley ([id number]), graphic editor Edouard Trevizo ([id number]) on 03/17/2021 8:04:15 AM Referred By: Chava Bell Confirmed By:Juan Hensley
[2021-03-17] MEDS: INSULIN ASPART 100 UNITS/ML 3 ML PEN SC SCH ×4 (08:23→20:35)
[2021-03-17] MEDS: MONTELUKAST SODIUM 10 MG TABLET PO SCH (09:07)
[2021-03-17] MEDS: TAMSULOSIN HCL 0.4 MG CAP PO SCH (09:07)
[2021-03-17] MEDS: ISOSORBIDE MONO EXTENDED REL 30 MG TABCR PO SCH (09:07)
[2021-03-17] MEDS: GABAPENTIN 800 MG TAB PO SCH ×3 (09:07→19:53)
[2021-03-17] MEDS: CYANOCOBALAMIN 500 MCG TABLET (VITAMIN B-12) PO SCH (09:07)
[2021-03-17] MEDS: CLOPIDOGREL BISULFATE 75 MG TAB PO SCH (09:07)
[2021-03-17] MEDS: APIXABAN 2.5 MG TAB PO SCH ×2 (09:07→19:54)
[2021-03-17] MEDS: GABAPENTIN 300 MG CAP PO SCH ×3 (09:07→19:53)
[2021-03-17] MEDS: LOSARTAN POTASSIUM 25 MG TAB PO SCH (09:07)
[2021-03-17] MEDS: AMIODARONE 200 MG TAB PO SCH ×4 (09:08→19:53)
--- NOTE | 2021-03-17 13:26 | Cardiology Progress Note ---
Date of Service March 17, 2021 Assessment & Plan (1) Atrial fibrillation with rapid ventricular response: Patient remains in sinus rhythm this morning. Telemetry reveals intermittent left bundle branch block 1 short run of atrial tachycardia last evening. No further arrhythmias. Heart rates trending towards bradycardic but no pauses no cardiac complaints. Plan continue telemetry additional 24-hour and follow EKGs on amiodarone load. Maintain anticoagulation as ordered with Eliquis Repeat EKG at 1700 (2) LBBB (left bundle branch block): (3) CKD (chronic kidney disease) stage 3, GFR 30-59 ml/min: (4) Elevated troponin: (5) Stenosis of left internal carotid artery: (6) Ischemic cardiomyopathy: (7) S/P CABG x 2: (8) CVA (cerebral vascular accident): Admission and Anticipated Discharge Date Admission Date: March 15, 2021 Subjective Patient was seen and examined, chart, medications, telemetry reviewed. Overall feels well this morning. Heart rate in the 50s. Brief runs of atrial tachycardia last evening no further events. Intermittent left bundle branch block notable on telemetry. Patient denies chest pains, shortness of breath, tachypalpitations or dizziness. Review of Systems Review of Systems: All systems reviewed & are unremarkable except as noted in HPI & below Physical Exam Constitutional: WD/WN, vitals as above Eyes: PERRL, conjunctivae normal, anicteric sclerae ENMT: external ear and nose normal, oropharynx normal Neck: trachea midline, no thyromegaly + thick neck Respiratory: normal respiratory effort, lungs clear to auscultation Cardiovascular: Rate/Rhythm: regular rate and regular rhythm Heart Sounds: normal S1 and normal S2; no gallop and no murmur Palpation: normal PMI Vessels: normal carotid upstroke and radial pulses present; no JVD and no carotid bruit Extremities: no edema Gastrointestinal (Abdomen): normal bowel sounds, soft, nontender, no hepatosplenomegaly Musculoskeletal: no cyanosis or clubbing, extremities motor strength 5/5 Skin: no rashes, warm and dry Neurologic: PERRL, EOMI, accommodation nl, no face palsy, no dysarthria Psychiatric: A+Ox3, euthymic affect Results & Data ([facility]) Vital Signs (Past 12 Hours) Vital Signs Temp Pulse Resp BP Pulse Ox 03/17/21 12:30 36.8 C 57 L 18 127/75 97 03/17/21 08:00 37.2 C 55 L 14 153/81 H 95 Laboratory Results Laboratory Results - last 24 hr 03/16/21 03/16/21 03/16/21 14:55 16:41 20:27 APTT 42.6 H PTT Ratio 1.6 POC Glucose 98 123 H Magnesium 03/17/21 03/17/21 03/17/21 05:17 07:57 12:12 APTT PTT Ratio POC Glucose 101 H 109 H Magnesium 2.3 ECG Additional Comments: 17-MAR-2021 05:27:21 [facility]-SICU ROUTINE RETRIEVAL Sinus bradycardia Left bundle branch block Abnormal ECG When compared with ECG of 16-MAR-2021 11:37, Left bundle branch block has replaced Incomplete left bundle block QTc 471
--- NOTE | 2021-03-17 16:19 | Electrocardiogram Report ---
Test Reason : Blood Pressure : / mmHG Vent. Rate : 049 BPM Atrial Rate : 049 BPM P-R Int : 178 ms QRS Dur : 158 ms QT Int : 522 ms P-R-T Axes : 081 030 135 degrees QTc Int : 471 ms Sinus bradycardia Left bundle branch block Abnormal ECG When compared with ECG of 16-MAR-2021 11:37, Left bundle branch block has replaced Incomplete left bundle block Confirmed by Steven Hensley ([id number]) on 03/17/2021 4:19:08 PM Referred By: Chava Bell Confirmed By:Juan Hensley
--- NOTE | 2021-03-17 17:32 | Electrocardiogram Report ---
Test Reason : Blood Pressure : / mmHG Vent. Rate : 089 BPM Atrial Rate : 086 BPM P-R Int : 000 ms QRS Dur : 142 ms QT Int : 416 ms P-R-T Axes : 000 024 162 degrees QTc Int : 506 ms Atrial fibrillation Left bundle branch block Abnormal ECG When compared with ECG of 15-MAR-2021 17:29, (unconfirmed) No significant change was found Confirmed by Steven Hensley ([id number]) on 03/17/2021 5:31:48 PM Referred By: Chava Bell Confirmed By:Juan Hensley
--- NOTE | 2021-03-17 17:32 | Electrocardiogram Report ---
Test Reason : Blood Pressure : / mmHG Vent. Rate : 144 BPM Atrial Rate : 156 BPM P-R Int : 000 ms QRS Dur : 136 ms QT Int : 330 ms P-R-T Axes : 000 -01 179 degrees QTc Int : 510 ms Atrial fibrillation with rapid ventricular response with premature ventricular or aberrantly conducte d complexes Left bundle branch block Abnormal ECG When compared with ECG of 02-APR-2019 10:22, Atrial fibrillation has replaced Sinus rhythm Vent. rate has increased BY 79 BPM Left bundle branch block is now Present Confirmed by Steven Hensley ([id number]) on 03/17/2021 5:32:31 PM Referred By: Confirmed By:Juan Hensley
--- NOTE | 2021-03-17 17:32 | Electrocardiogram Report ---
Test Reason : Blood Pressure : / mmHG Vent. Rate : 110 BPM Atrial Rate : 080 BPM P-R Int : 000 ms QRS Dur : 142 ms QT Int : 388 ms P-R-T Axes : 000 006 161 degrees QTc Int : 525 ms Atrial fibrillation with rapid ventricular response Left bundle branch block Abnormal ECG When compared with ECG of 15-MAR-2021 15:54, (unconfirmed) No significant change was found Confirmed by Steven Hensley ([id number]) on 03/17/2021 5:31:37 PM Referred By: Chava Bell Confirmed By:Juan Hensley
--- NOTE | 2021-03-17 19:21 | Hospitalist Progress Note ---
Date of Service March 17, 2021 Assessment & Plan (1) Atrial fibrillation with rapid ventricular response: (2) LBBB (left bundle branch block): (3) Elevated troponin: This is a 75-year-old male who has significant past medical history of CAD with CABG x2 FOLEY to LAD and vein graft to OM, history of PCI to LAD/RCA 2019, ischemic cardiomyopathy with EF 40 to 45%, history of nonsustained SVT, history of CVA/TIA on dual antiplatelet therapy, PAF, T2DM, HTN, HLD, bilateral asymptomatic carotid artery stenosis, chronic high-grade stenosis of intracranial arteries who presents ED due to shortness of breath and a feeling x1 day. Present on admission with Afib with RVR Received Toprol tartrate IV 2.5x2, oral metoprolol tartrate 25 mg and metoprolol Cardizem drip and heparin were started on admission PABLO done showed no left atrial appendage thrombus S/P successful cardioversion by cardiology on 03/16 Brief episode of atrial tachycardia Continue amiodarone 400mg TID Continue eliquis 5mg BID Continue monitor in tele (4) Coronary artery disease: (5) Ischemic cardiomyopathy: CAD with history of CABG x2 FOLEY to LAD and vein graft to OM PCI to LAD and RCA in 2019 Most recent echocardiogram revealed EF 40 to 45%, well compensated no signs or symptoms of CHF Continue ASA, Plavix, statin and losartan (6) Diabetes mellitus, type 2: Last A1c 6.3 on 05/11/2020 Obtain A1c in a.m., hold Metformin NovoLog per protocol (7) CVA (cerebral vascular accident): With residual sensory right upper extremity deficit Continue ASA, Plavix, statin Per neurology permissive hypertension recommended secondary to chronic high- grade stenosis in bilateral MCA territory (8) Hypertension: Blood pressure adequate Continue losartan (9) Dyslipidemia: Continue statin (10) CKD (chronic kidney disease) stage 3, GFR 30-59 ml/min: Baseline creatinine 1.2-1.4 BUN/creatinine 25 and 1.49 today Receiving gentle IV fluid in ED Monitor renal function (11) DVT prophylaxis: Heparin gtt Dispo: PCU PCP: Arabella Full Code Admission and Anticipated Discharge Date Admission Date: March 15, 2021 Subjective Pt was seen and examined for follow up of Afib Lying in bed with no distress Pt said that he feels ok He had a brief runs of atrial tachycardia last evening He had successful cardioverted today Denies any chest pain, palpitation, dizziness and SOB Review of Systems Review of Systems: All systems reviewed & are unremarkable except as noted in Subjective Physical Exam Physical Exam: General- No acute distress Head- atraumatic Eyes- PERRL, EOMI, ENT- oropharynx clear Neck- supple, no JVD Lungs- clear to auscultation Heart- regular rhythm; no murmur Abdomen- normal bowel sounds, soft, nontender Extremities- no calf tenderness Neuro- alert, oriented x 3; PERRL, EOMI; no facial palsy; no dysarthria Skin- warm & dry Results & Data Results & Data ([facility]) Vital Signs (Past 12 Hours) Vital Signs Temp Pulse Resp BP Pulse Ox 03/17/21 15:18 36.8 C 55 L 20 126/70 96 03/17/21 12:30 36.8 C 57 L 18 127/75 97 03/17/21 08:00 37.2 C 55 L 14 153/81 H 95
[2021-03-17] MEDS: ROSUVASTATIN CALCIUM 20 MG TAB PO SCH (19:53)
[2021-03-18] MEDS: CYANOCOBALAMIN 500 MCG TABLET (VITAMIN B-12) PO SCH (07:50)
[2021-03-18] MEDS: AMIODARONE 200 MG TAB PO SCH (07:50)
[2021-03-18] MEDS: APIXABAN 2.5 MG TAB PO SCH (07:50)
[2021-03-18] MEDS: CLOPIDOGREL BISULFATE 75 MG TAB PO SCH (07:50)
[2021-03-18] MEDS: GABAPENTIN 800 MG TAB PO SCH (07:50)
[2021-03-18] MEDS: ISOSORBIDE MONO EXTENDED REL 30 MG TABCR PO SCH (07:51)
[2021-03-18] MEDS: TAMSULOSIN HCL 0.4 MG CAP PO SCH (07:51)
[2021-03-18] MEDS: LOSARTAN POTASSIUM 25 MG TAB PO SCH (07:51)
[2021-03-18] MEDS: GABAPENTIN 300 MG CAP PO SCH (07:51)
[2021-03-18] MEDS: MONTELUKAST SODIUM 10 MG TABLET PO SCH (07:51)
[2021-03-18] MEDS: INSULIN ASPART 100 UNITS/ML 3 ML PEN SC SCH ×2 (07:55→11:58)
--- NOTE | 2021-03-18 12:13 | Hospitalist Progress Note ---
Date of Service March 18, 2021 Assessment & Plan (1) Atrial fibrillation with rapid ventricular response: (2) LBBB (left bundle branch block): (3) Elevated troponin: This is a 75-year-old male who has significant past medical history of CAD with CABG x2 FOLEY to LAD and vein graft to OM, history of PCI to LAD/RCA 2019, ischemic cardiomyopathy with EF 40 to 45%, history of nonsustained SVT, history of CVA/TIA on dual antiplatelet therapy, PAF, T2DM, HTN, HLD, bilateral asymptomatic carotid artery stenosis, chronic high-grade stenosis of intracranial arteries who presents ED due to shortness of breath and a feeling x1 day. Present on admission with Afib with RVR Received Toprol tartrate IV 2.5x2, oral metoprolol tartrate 25 mg and metoprolol Cardizem drip and heparin were started on admission PABLO done showed no left atrial appendage thrombus S/P successful cardioversion by cardiology on 03/16 Brief episode of atrial tachycardia on 03/16 case discussed with cardiology that recommended to decrease on amiodarone 200mg BID Continue eliquis 5mg BID Follow up with cardiology (4) Coronary artery disease: (5) Ischemic cardiomyopathy: CAD with history of CABG x2 FOLEY to LAD and vein graft to OM PCI to LAD and RCA in 2019 Most recent echocardiogram revealed EF 40 to 45%, well compensated no signs or symptoms of CHF Continue Plavix, statin and losartan Continue Eliquis BID and asa discontinued Case discussed with cardio and agreed about d/c aspirin (6) Diabetes mellitus, type 2: Last A1c 6.3 on 05/11/2020 Obtain A1c in a.m., hold Metformin NovoLog per protocol (7) CVA (cerebral vascular accident): With residual sensory right upper extremity deficit Continue Plavix, statin Will d/c aspirin since pt starting on eliquis due to risk of bleeding while on plavix+eliquis Per neurology permissive hypertension recommended secondary to chronic high- grade stenosis in bilateral MCA territory (8) Hypertension: Blood pressure adequate Continue losartan (9) Dyslipidemia: Continue statin (10) CKD (chronic kidney disease) stage 3, GFR 30-59 ml/min: Baseline creatinine 1.2-1.4 BUN/creatinine 25 and 1.49 today Receiving gentle IV fluid in ED Monitor renal function (11) DVT prophylaxis: Heparin gtt PCP: Arabella Full Code Discharge home today Admission and Anticipated Discharge Date Admission Date: March 15, 2021 Subjective Pt was seen and examined for follow up of Afib Lying in bed with no distress watching TV He said that he feels fine Denies any chest pain, palpitation, dizziness and SOB Review of Systems Review of Systems: All systems reviewed & are unremarkable except as noted in Subjective Physical Exam Physical Exam: General- No acute distress Head- atraumatic Eyes- PERRL, EOMI, ENT- oropharynx clear Neck- supple, no JVD Lungs- clear to auscultation Heart- regular rhythm; no murmur Abdomen- normal bowel sounds, soft, nontender Extremities- no calf tenderness Neuro- alert, oriented x 3; PERRL, EOMI; no facial palsy; no dysarthria Skin- warm & dry Results & Data Results & Data ([facility]) Vital Signs (Past 12 Hours) Vital Signs Temp Pulse Pulse Resp BP Pulse Ox 03/18/21 11:01 36.7 C 56 L 18 124/73 93 03/18/21 07:30 36.5 C 55 L 20 138/73 96 03/18/21 07:23 50 L 03/18/21 04:00 36.4 C L 55 L 16 137/80 97 03/18/21 00:10 36.6 C 54 L 16 126/74 96
--- NOTE | 2021-03-18 12:34 | Discharge Summary ---
Date of Service March 18, 2021 Admission HPI Per Admitting Provider This is a 75-year-old male who has significant past medical history of CAD with CABG x2 FOLEY to LAD and vein graft to OM, history of PCI to LAD/RCA 2018, ischemic cardiomyopathy with EF 40 to 45%, history of nonsustained SVT, history of CVA/TIA on dual antiplatelet therapy, PAF, T2DM, HTN, HLD, bilateral asymptomatic carotid artery stenosis, chronic high-grade stenosis of intracranial arteries who presents ED due to shortness of breath and a feeling x1 day. Over the past 2 days he has felt generally weak. Today he developed dyspnea on exertion, lightheadedness, "fuzzy vision." He took blood pressure at home and it was on lower side and his heart rate was, "all over the place." He called into PCP who recommended he be evaluated in ED. is at bedside and is concerned due to prior history of AL where he did not present with chest pain but required eventual bypass. He does recall history of A. fib in the past requiring anticoagulation but is unsure why he was taken off. He also has past history of CVA approximately 45 years ago with some residual sensory defect and right-sided facial droop. He denies any recent illness, fever, chills, sweats, current lightheadedness, dizziness or syncope, shortness of breath at rest, cough, hemoptysis, nausea, vomiting, abdominal pain. He took his medications today. He has been compliant with his dual antiplatelet regimen of aspirin and Plavix. In ED patient was found to be in A. fib with RVR with heart rates in the 150s. Lab work notable for elevated troponin 0.101, BUN 25, creatinine 149. EKG revealed A. fib with RVR and new left bundle branch block. Patient denies any chest pain and also denied any chest pain with exertion. He has not required any nitroglycerin at home. In ED he was started on IV heparin drip with bolus. He was also received oral Lopressor and a dose of IV Lopressor. Admission Exam Per Admitting Provider Constitutional: WD/WN, vitals as above, NAD, sitting up in bed, pleasant, conversing easily Head: Normocephalic, Atraumatic Eyes: PERRL, conjunctivae normal, anicteric sclerae ENMT: external ear and nose normal, oropharynx normal Neck: trachea midline, no thyromegaly normal visual inspection Respiratory: normal respiratory effort, lungs clear to auscultation, no wheeze, rales, rhonchi. Normal insp/exp effort, no accessory muscle use Cardiovascular: Irregular rate, irregular rhythm, no murmur, no edema Vessels: no JVD or carotid bruit Chest: normal inspection of chest Abdomen: normal bowel sounds, soft, nontender, no hepatosplenomegaly Musculoskeletal: no cyanosis or clubbing, extremities motor strength 5/5 Skin: no rashes, warm and dry normal turgor Neurologic: PERRL, EOMI, accommodation nl, no face palsy, no dysarthria CN's II-XI intact bilaterally and moves all extremities Psychiatric: A+Ox3, euthymic affect Lymphatic: no cervical or axillary lymphadenopathy : deferred Principal Diagnosis (1) Atrial fibrillation with rapid ventricular response: (2) LBBB (left bundle branch block): (3) Elevated troponin (4) Coronary artery disease: (5) Ischemic cardiomyopathy: (6) Diabetes mellitus, type 2 (7) CVA (cerebral vascular accident): (8) Hypertension: (9) Dyslipidemia (10) CKD (chronic kidney disease) stage 3, GFR 30-59 ml/min: Discharge Exam General- No acute distress Head- atraumatic Eyes- PERRL, EOMI, ENT- oropharynx clear Neck- supple, no JVD Lungs- clear to auscultation Heart- regular rhythm; no murmur Abdomen- normal bowel sounds, soft, nontender Extremities- no calf tenderness Neuro- alert, oriented x 3; PERRL, EOMI; no facial palsy; no dysarthria Skin- warm & dry Discharge Data Allergies Allergy/AdvReac Type Severity Reaction Status Date / Time No Known Allergies Allergy Verified 03/15/21 17:18 Consultations 03/15/21 16:59 ED Decision to Admit Stat 03/15/21 17:08 Consult Cardiology Routine Procedures Performed Operation Date: 03/16/21 11:00 Actual Procedures s Echo Transesophageal - Mukul Corey DO p Cardioversion - Mukul Corey DO s Echo Color Flow - Mukul Corey DO s Echo Doppler Complete - Mukul Corey DO Ordered Studies XR chest 1V portable CLINICAL HISTORY: Shortness of breath COMPARISON STUDY: 03/30/2019 FINDINGS: The heart is enlarged. There are postsurgical changes of a midline sternotomy. There is a thoracic scoliosis. There is no failure. There is no focal pulmonary consolidation. There are no pleural effusions.[ IMPRESSION: Cardiomegaly. No evidence of focal pulmonary consolidation. ACT 112: Negative or not required by law. Electronically signed by: Obdulio Ardon M.D. 03/15/2021 7:19 PM Dictated: 03/15/211917Transcribed: 03/15/211917 Hospital Course (1) Atrial fibrillation with rapid ventricular response: (2) LBBB (left bundle branch block): (3) Elevated troponin: This is a 75-year-old male who has significant past medical history of CAD with CABG x2 FOLEY to LAD and vein graft to OM, history of PCI to LAD/RCA 2018, ischemic cardiomyopathy with EF 40 to 45%, history of nonsustained SVT, history of CVA/TIA on dual antiplatelet therapy, PAF, T2DM, HTN, HLD, bilateral asymptomatic carotid artery stenosis, chronic high-grade stenosis of intracranial arteries who presents ED due to shortness of breath and a feeling x1 day. Present on admission with Afib with RVR Received Toprol tartrate IV 2.5x2, oral metoprolol tartrate 25 mg and metoprolol Cardizem drip and heparin were started on admission PABLO done showed no left atrial appendage thrombus S/P successful cardioversion by cardiology on 03/16 Brief episode of atrial tachycardia on 03/16 case discussed with cardiology that recommended to decrease on amiodarone 200mg BID Continue eliquis 5mg BID Follow up with cardiology (4) Coronary artery disease: (5) Ischemic cardiomyopathy: CAD with history of CABG x2 FOLEY to LAD and vein graft to OM PCI to LAD and RCA in 2018 Most recent echocardiogram revealed EF 40 to 45%, well compensated no signs or symptoms of CHF Continue Plavix, statin and losartan Continue Eliquis BID and asa discontinued Case discussed with cardio and agreed about d/c aspirin (6) Diabetes mellitus, type 2: Last A1c 6.3 on 05/11/2020 Obtain A1c in a.m., hold Metformin NovoLog per protocol (7) CVA (cerebral vascular accident): With residual sensory right upper extremity deficit Continue Plavix, statin Will d/c aspirin since pt starting on eliquis due to risk of bleeding while on plavix+eliquis Per neurology permissive hypertension recommended secondary to chronic high- grade stenosis in bilateral MCA territory (8) Hypertension: Blood pressure adequate Continue losartan (9) Dyslipidemia: Continue statin (10) CKD (chronic kidney disease) stage 3, GFR 30-59 ml/min: Baseline creatinine 1.2-1.4 BUN/creatinine 25 and 1.49 today Receiving gentle IV fluid in ED Monitor renal function (11) DVT prophylaxis: Heparin gtt PCP: Arabella Full Code Discharge home today Total Time Total Time Spent Total Time Spent (In Minutes): 35 minutes Total Time Includes: Examination of the Patient, Discharge Planning, Medication Reconciliation, Communication With Other Providers and Other Discharge Plan Discharge Items Patient Disposition: Home - Self-Care Reason For Visit: AFIB RVR Discharge Diagnosis: (1) Atrial fibrillation with rapid ventricular response: (2) LBBB (left bundle branch block): (3) Elevated troponin (4) Coronary artery disease: (5) Ischemic cardiomyopathy: (6) Diabetes mellitus, type 2 (7) CVA (cerebral vascular accident): (8) Hypertension: (9) Dyslipidemia (10) CKD (chronic kidney disease) stage 3, GFR 30-59 ml/min: Activity: Resume your previous activity Non-emergency contact: Primary Care Provider Call non-emergency contact if: you have any medication questions Follow-up/Referrals: Chava Bell MD [Primary Care Provider] - (Date & Time 03/23/2021 8:40 AM Provider Chava Bell MD Department [facility] ) Diet: Carb Consistent or DM2 and Heart Healthy Addtl Attending Provider Instructions: Follow up with your primary care provider dr. Bell on 03/23/2021 at 8:[address] [facility] Follow up with your cardiology (Please call for the appointment) Fall precaution Monitor for any abnormal bleeding while on blood thinner Eliquis Please seek medical attention if you develop any abnormal bleeding Medication Instructions: Eliquis Your condition is typically treated with an anticoagulant. Anticoagulants will thin your blood to help prevent new clots. You should take her medication exactly as directed. Never skip a dose. Never take a double dose. If you miss a dose, take it as soon as you remember. Avoid NSAIDs (Motrin, Aleve, Naproxen, Ibuprofen, Advil, Meloxicam,..) due to risks of bleeding Call your Primary Care doctor if you experience any of the following: Swelling or Pain in your leg Sudden, continuous pain deep in a muscle Pain that worsens when you are active or when you stand still for a long time Chest Pain Sudden Shortness of Breath Rapid or pounding heart beat Fainting Dizziness Cough with blood or bloody sputum Sweating more than normal Bruises Heavy or uncontrolled bleeding Blood in your urine, stool or vomit Black or tarry stools Pending Studies at Discharge: No Stand-Alone Forms: My [facility] [employer]eg[employer], Smoking Cessation Medications and DC Order Prescriptions: New amiodarone 200 mg Tablet 200 mg PO BID 30 Days Qty: 60 RF: 0 Eliquis 5 mg tablet 5 mg PO BID 30 Days Qty: 60 RF: 0 Continued isosorbide mononitrate 30 mg Tablet Extended Release 24 Hr 30 mg PO QAM Qty: 0 RF: 0 gabapentin 300 mg Capsule 300 mg PO TID Qty: 0 RF: 0 metformin 500 mg Tablet 500 mg PO BID Qty: 0 RF: 0 acetaminophen [Acetaminophen Extra Strength] 500 mg Tablet 1,000 mg PO UD PRN (Reason: Pain) Qty: 0 RF: 0 nitroglycerin 0.4 mg Tablet, Sublingual 0.4 mg sublingual Q5M PRN (Reason: Chest Pain) Qty: 0 RF: 0 tamsulosin 0.4 mg Capsule 0.4 mg PO DAILY RF: 0 rosuvastatin 40 mg Tablet 40 mg PO HS RF: 0 docusate sodium 100 mg Capsule 100 mg PO BID Qty: 14 RF: 0 indomethacin 50 mg capsule 50 mg PO TID PRN (Reason: as directed) RF: 0 gabapentin 800 mg tablet 800 mg PO TID RF: 0 montelukast 10 mg tablet 10 mg PO DAILY RF: 0 losartan 25 mg tablet 25 mg PO DAILY RF: 0 clopidogrel 75 mg Tablet 75 mg PO DAILY RF: 0 cyanocobalamin (vitamin B-12) 1,000 mcg Capsule 1,000 mcg PO DAILY RF: 0 Discontinued aspirin [Aspirin Low Dose] 81 mg Tablet,Delayed Release (Dr/Ec) 81 mg PO DAILY Qty: 0 RF: 0 Discharge Orders: Discharge Order (Routine); Ordered 03/18/21 Ordered By: Beth Overton/Other Patient Handouts: High Blood Sugar (Hyperglycemia), Hypoglycemia (Low Blood Sugar), Managing Type 2 Diabetes, 5 Steps for Eating Healthier, Managing Diabetes: The A1C Test Admission Data Admit Date/Time: 03/15/21 17:08 Attending Provider: Beth Silva Admit Provider: Beth Silva Primary Care Provider: Chava Bell Other Providers: Beth Silva ; Mukul Corey Other Interventions: Discharge Summary Assessment (RN) Last Done: 03/18/21 13:00
--- NOTE | 2021-03-18 13:30 | Cardiology Progress Note ---
Date of Service March 18, 2021 Assessment & Plan (1) Atrial fibrillation with rapid ventricular response: Patient remains in sinus rhythm this morning. Telemetry reveals intermittent left bundle branch block 1 short run of atrial tachycardia last evening. No further arrhythmias. Heart rates trending towards bradycardic but no pauses no cardiac complaints. Plan continue telemetry additional 24-hour and follow EKGs on amiodarone load. Maintain anticoagulation as ordered with Eliquis Repeat EKG at 1700 (2) LBBB (left bundle branch block): (3) CKD (chronic kidney disease) stage 3, GFR 30-59 ml/min: (4) Elevated troponin: (5) Stenosis of left internal carotid artery: (6) Ischemic cardiomyopathy: (7) S/P CABG x 2: (8) CVA (cerebral vascular accident): Patient is undergone successful PABLO guided cardioversion Has been maintained in normal sinus rhythm with amiodarone 200 mg twice daily. No significant bradycardia. Tolerating Eliquis. We will DC to home on current regimen of amiodarone and Eliquis. He was already on dual antiplatelet therapy and his aspirin will be discontinued at this time and Plavix continued for his underlying vascular disease and history of CVA. My office will call to arrange follow-up with me in 2 to 4 weeks. Okay to discharge to home. I called and reviewed with the patient's , Piper, as well. Admission and Anticipated Discharge Date Admission Date: March 15, 2021 Subjective Patient seen and examined, chart reviewed. States he is feeling well and denies any chest pain, shortness of breath, palpitations, lightheadedness, dizziness or syncope. Telemetry reviewed: Normal sinus rhythm with underlying left bundle branch block no significant bradycardic episodes or bradycardia arrhythmias. Review of Systems Review of Systems: All systems reviewed & are unremarkable except as noted in HPI & below Physical Exam Physical Exam: General: Awake, alert and oriented x 3. No acute distress. HEENT: Normocephalic, atraumatic. Pupils equal, round and reactive to light and accommodation. Extraocular muscles are intact. Anicteric sclera. Moist mucous membranes. Neck: No JVD. No bruit. Cardiovascular: Regular. Positive S-4. Normal S-1 and S-2. No S-3. 3/6 mid to late systolic ejection murmur, greatest at the right sternal border, second intercostal space with radiation to the bilateral carotids. No rubs. Pulmonary: Clear to auscultation bilaterally. No rales, rhonchi, or wheezing. Abdomen: Bowel sounds x 4, soft. No rebound, guarding or tenderness. No organomegaly. Extremities: No clubbing, cyanosis or edema. +2 pedal pulses bilaterally. Skin: Warm and dry. Results & Data ([facility]) Vital Signs (Past 12 Hours) Vital Signs Temp Pulse Pulse Resp BP Pulse Ox 03/18/21 13:00 36.7 C 56 L 18 124/73 93 03/18/21 11:01 36.7 C 56 L 18 124/73 93 03/18/21 07:30 36.5 C 55 L 20 138/73 96 03/18/21 07:23 50 L 03/18/21 04:00 36.4 C L 55 L 16 137/80 97
--- NOTE | 2021-03-19 06:55 | Electrocardiogram Report ---
Test Reason : Blood Pressure : / mmHG Vent. Rate : 052 BPM Atrial Rate : 052 BPM P-R Int : 174 ms QRS Dur : 108 ms QT Int : 444 ms P-R-T Axes : 025 006 102 degrees QTc Int : 412 ms Sinus bradycardia Possible Left atrial enlargement Abnormal ECG When compared with ECG of 17-MAR-2021 05:27, Left bundle branch block is no longer Present Confirmed by Fred Louise ([id number]) on 03/19/2021 6:55:21 AM Referred By: Chava Bell Confirmed By:Fred Louise
--- NOTE | 2021-03-19 07:41 | Electrocardiogram Report ---
Test Reason : Blood Pressure : / mmHG Vent. Rate : 056 BPM Atrial Rate : 056 BPM P-R Int : 172 ms QRS Dur : 106 ms QT Int : 438 ms P-R-T Axes : 030 017 102 degrees QTc Int : 422 ms Sinus bradycardia Possible Left atrial enlargement Abnormal ECG When compared with ECG of 17-MAR-2021 17:09, No significant change was found Confirmed by Fred Louise ([id number]) on 03/19/2021 7:41:09 AM Referred By: Chava Bell Confirmed By:Fred Louise
--- NOTE | 2021-03-28 13:02 | Coding Query ---
CODING QUERY To promote full compliance with coding requirements relating to patient care, provider participation is requested in all cases of storage architect uncertainty. Please assist us with the question(s) below: Coding Question(s): Elevated Troponin is documented throughout the record and on Discharge Summary, with documentation on the H&P of, "Cycle troponin, likely elevated in setting of demand ischemia", however, this is not documented past the H&P. Please specify below, in your clinical opinion, regarding the elevated troponin. ( ) Elevated Troponin is likely due to Demand Ischemia (x ) Elevated Troponin is likely due to Other: Please Specify___due to Afib ( ) Elevated Troponin is due to Unknown likely etiology Physician's Response(s): Thank you Stephanie Daniel Principal Diagnosis: "that condition established after study, to be chiefly responsible for occasioning the admission of the patient to the hospital for care." Co-Existing Principal Diagnosis: "when two or more diagnoses equally meet the criteria for principal diagnosis as determined by the circumstances of admission, diagnostic work up, and/or therapy provided, and the Alphabetic Index, Tabular List, or another coding guideline does not provide sequencing direction, any one of the diagnoses may be sequenced first." "When the physician has documented what appears to be a current diagnosis in the body of the record, but has not included the diagnosis in the final diagnostic statement, the physician should be asked whether the diagnosis should be added." (Source Coding [facility] 2 QTR90. p3-4) TAMELA
== END 2021-03-18 14:00 | disposition home or self-care (01) | DRG 310 ==
LOC: ED 15:44 → 1E 17:08 → 2S 03-17 14:53

== ENCOUNTER 2021-07-29 12:39 | Inpatient (IN) ==
--- NOTE | 2021-07-29 13:20 | Emergency Department Note ---
History of Present Illness General Chief complaint: Hypotension Stated complaint: VERY LOW BP,PASSING OUT,CARDIAC HX Time Seen by Provider: 07/29/21 13:07 Source: patient and family ( who is at the bedside) Mode of arrival: ambulatory Limitations: no limitations History of Present Illness This patient is 75-year-old male who comes in after feeling sweaty and passing out this morning. He was fine yesterday. His says blood pressure was one twenty-eight systolic and measured multiple times with the lowest being seventy- four. His pulse remained eighty-three and his oxygen remained fine. He was sitting on a barstool as it was next a fan he felt like he was sweaty he did not have a fever. He did fall. He may have hit his head but laying on his buttocks first he has no headache or external signs of trauma. His says he presents atypically and he presented very similarly when he had a cardiac issue and had a couple stents placed earlier this year. He has had no chest pain shortness of breath or pleurisy. No fever. Has been tired the last day or so. No blood or melena stool no abdominal or back pain. No focal numbness weakness. No headache neck pain or stiffness. No change in medications. He did see customs compliance manager on Saturday and is scheduled for a cardiac MRI this week. He has been keeping up with his fluids. Home Medications Medication Instructions Recorded Confirmed Type isosorbide mononitrate 30 mg 30 mg PO QAM #0 tab 08/12/14 07/29/21 History tablet,extended release 24 hr metformin 500 mg tablet 500 mg PO BID #0 tab 02/10/17 07/29/21 History acetaminophen 500 mg tablet 1,000 mg PO UD PRN #0 tab 08/15/17 07/29/21 History (Acetaminophen Extra Strength) nitroglycerin 0.4 mg sublingual 0.4 mg SUBLINGUAL Q5M PRN #0 08/15/17 07/29/21 History tablet rosuvastatin 40 mg tablet 40 mg PO HS 03/30/19 07/29/21 History tamsulosin 0.4 mg capsule 0.4 mg PO DAILY 03/30/19 07/29/21 History clopidogrel 75 mg tablet 75 mg PO DAILY 03/15/21 07/29/21 History gabapentin 800 mg tablet 800 mg PO TID 03/15/21 07/29/21 History indomethacin 50 mg capsule 50 mg PO TID PRN 03/15/21 07/29/21 History montelukast 10 mg tablet 10 mg PO DAILY 03/15/21 07/29/21 History cyanocobalamin (vitamin B-12) 5,000 mcg SUBLINGUAL DAILY 07/29/21 07/29/21 History 5,000 mcg sublingual tablet (Vitamin B-12) ezetimibe 10 mg tablet 10 mg PO DAILY 07/29/21 07/29/21 History utnypned-qho-qtioe acid 0.4 1 tab PO DAILY 07/29/21 07/29/21 History mg-lycopene 300 mcg-lutein 250 mcg tablet (Centrum Silver) Allergies Allergy/AdvReac Type Severity Reaction Status Date / Time No Known Allergies Allergy Verified 07/29/21 14:48 Past Med/Surg History Medical History (Updated 07/29/21 @ 19:21 by Bryant Willson MD) Atrial fibrillation with rapid ventricular response Chronic bundle branch block LBBB CKD (chronic kidney disease), stage III Coronary artery disease 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 CVA (cerebral vascular accident) Diabetes Diabetes mellitus, type 2 Dyslipidemia GERD (gastroesophageal reflux disease) GERD (gastroesophageal reflux disease) Gout HTN (hypertension) Hypertension Paroxysmal A-fib TIA (transient ischemic attack) Surgical History H/O umbilical hernia repair x2 History of coronary artery stent placement LAD and RCA 2019 History of Amie fundoplication S/P CABG x 2 S/P repair of paraesophageal hernia Status post cataract extraction Status post tonsillectomy Family History Mother Stroke Social History Smoking Status: Former smoker Second Hand Exposure: No; Hx Alcohol Use: Yes Alcohol type: beer Hx Substance Use: No Preferred Language: Japanese Communication Ability: Effective Radiology Technologist Required: No Beliefs That Will Affect Care: None Current Living Situation: Spouse current occupation: Retired Other Information That Helps Us Care for You: No Feels Safe at Home: Yes Safety Concerns: Feels Safe At This Time Assistive Devices: Hearing Aid - Bilateral Assistive Devices Comment: at home Review of Systems A total of 10 systems reviewed and were otherwise negative Physical Exam Vital Signs Vital Signs - 24 hr 07/29/21 12:48 07/29/21 13:02 07/29/21 13:16 Temperature 36.7 C Temperature Source Temporal Artery Scan Pulse Rate 70 66 70 Pulse Rate from SpO2 Sensor 66 Pulse Rhythm Regular Respiratory Rate 18 22 18 Blood Pressure 93/57 L 111/57 L Blood Pressure Mean 69 75 Pulse Oximetry 98 98 98 Oxygen Delivery Method Room Air Room Air Sepsis Recent Fever Within 48 Hours No Sepsis New/Unexplained Change in Mental Status No Sepsis Action Taken by Nursing No Action Required 07/29/21 13:31 07/29/21 14:00 07/29/21 14:30 Temperature Temperature Source Pulse Rate 62 65 64 Pulse Rate from SpO2 Sensor 64 65 Pulse Rhythm Respiratory Rate 14 17 20 Blood Pressure 91/49 L 113/81 132/67 Blood Pressure Mean 63 91 88 Pulse Oximetry 98 98 Oxygen Delivery Method Sepsis Recent Fever Within 48 Hours Sepsis New/Unexplained Change in Mental Status Sepsis Action Taken by Nursing 07/29/21 15:00 Temperature Temperature Source Pulse Rate 68 Pulse Rate from SpO2 Sensor 68 Pulse Rhythm Respiratory Rate 19 Blood Pressure 139/71 Blood Pressure Mean 93 Pulse Oximetry 97 Oxygen Delivery Method Sepsis Recent Fever Within 48 Hours Sepsis New/Unexplained Change in Mental Status Sepsis Action Taken by Nursing General: Well developed well nourished older male who appears in no acute distress, breathing comfortably on room air. Normal speech HEENT: Normal cephalic atraumatic. Pupils are equal round and reactive to light. Extraocular movements are intact. Oropharynx is pink with moist mucous membranes. No swelling of the mouth lips or tongue. Neck: Supple with a midline trachea. No meningeal signs or stiffness, no JVD or bruits. No Stridor. Chest: Clear to auscultation bilaterally. No wheezes or rhonchi. No increased work of breathing. Heart: Regular rate and rhythm without murmurs or gallops. Abdomen: Soft nontender, nondistended without rebound guarding or rigidity. Extremities: No cyanosis clubbing or edema. No calf tenderness or assymetry Spine/Back. Non tender to palpation. No CVA tenderness Skin: Good turgor without rashes. Neurologic exam: Cranial nerves two through 12 are intact. Motor and sensation are intact and symmetrical throughout. Course Administered Medications Insulin Aspart (Insulin Aspart 100 Units/Ml 3 Ml Pen) 0 units SC ACHS GITA Stop: 08/28/21 17:14 Last Admin: 07/29/21 18:40 Dose: Not Given Documented by: [id number] Discontinued Medications Sodium Chloride (Nss) 500 mls @ 999 mls/hr IV .Q31M ONE Stop: 07/29/21 14:03 Last Infusion: 07/29/21 14:32 Dose: 0 mls/hr Documented by: [id number] Admin: 07/29/21 13:36 Dose: 999 mls/hr Documented by: [id number] Critical Care Time Critical Care Time: Yes Total Critical Care Time: 36 Due to the patient's hypotension, complex medical history, frequent reassessment and evaluation need for cardiology consultation and echocardiogram in the ER as well as admission and further consultations and treatment, I have personally spent greater than 36 minutes of critical care time in the direct management of this patient. This includes bedside care, interpretation of diagnostic studies, and testing, discussion with consultants, patient, and family members, and other required patient management activities. This 36 minutes is in excess of all separately billable procedures. Medical Decision Making Differential Diagnosis Acute coronary syndrome, arrhythmia, sepsis, hypotension, anemia, trauma Medical Records Attestation: I reviewed the patient's medical records. Home Medications Current Medication List: was personally reviewed by me Laboratory Data Result diagrams: 07/29/21 13:05 07/29/21 13:05 Lab Results 07/29/21 07/29/21 07/29/21 Range/Units 13:05 13:05 13:05 WBC 10.50 (4.8-10.8) K/uL RBC 3.35 L (4.7-6.1) M/uL Hgb 10.5 L (14.0-18.0) g/dL Hct 32.7 L (42-52) % MCV 97.6 (80-100) fL MCH 31.3 (25-34) pg MCHC 32.1 (32-36) g/dL RDW Std Deviation 53.5 H (36.4-46.3) fL RDW Coeff of Leela 15.0 H (11.5-14.5) % Plt Count 186 (130-400) K/uL MPV 11.5 H (7.4-10.4) fL Immature Gran % (Auto) 0.2 % Neut % (Auto) 80.4 % Lymph % (Auto) 14.2 % [place] % (Auto) 3.8 % Eos % (Auto) 1.0 % Baso % (Auto) 0.4 % Neut # (Auto) 8.44 H (1.4-6.5) K/uL Lymph # (Auto) 1.49 (1.2-3.4) K/uL [place] # (Auto) 0.40 (0.11-0.59) K/uL Eos # (Auto) 0.11 (0-0.5) K/uL Baso # (Auto) 0.04 (0-0.2) K/uL Immature Gran # (Auto) 0.02 (0.00-0.02) K/uL PT 11.2 (9.0-12.0) Seconds INR 1.1 (0.9-1.1) APTT 20.2 L (21.0-31.0) Seconds PTT Ratio 0.8 Sodium 142 (136-145) mmol/L Potassium 5.4 H (3.5-5.1) mmol/L Chloride 113 H (98-107) mmol/L Carbon Dioxide 25 (21-32) mmol/L Anion Gap 4.0 (3-11) BUN 50 H (7-18) mg/dl Creatinine 1.74 H (0.6-1.4) mg/dl Est Cr Clr Drug Dosing Not Reportable Est GFR ( Amer) 44.1 ml/min Est GFR (Non-Af Amer) 38.1 ml/min BUN/Creatinine Ratio 28.5 H (10-20) Glucose 164 H (70-99) mg/dl Lactate (0.4-2.0) mmol/L Calcium 8.1 L (8.5-10.1) mg/dl Total Bilirubin 0.7 (0.2-1) mg/dl AST 23 (15-37) U/L ALT 32 (12-78) U/L Alkaline Phosphatase 56 (45-117) U/L Troponin I < 0.015 (0-0.045) ng/ml NT-Pro-B Natriuret Pep 791 (0-900) pg/ml Total Protein 6.0 L (6.4-8.2) gm/dl Albumin 3.1 L (3.4-5.0) gm/dl Globulin 2.9 (2.5-4.0) gm/dl Albumin/Globulin Ratio 1.1 (0.9-2) Lipase 373 (73-393) U/L Procalcitonin (0-0.5) ng/ml COVID-19 Eval Order SARS-CoV-2 (PCR) (Negative) 07/29/21 07/29/21 07/29/21 Range/Units 13:05 13:34 14:35 WBC (4.8-10.8) K/uL RBC (4.7-6.1) M/uL Hgb (14.0-18.0) g/dL Hct (42-52) % MCV (80-100) fL MCH (25-34) pg MCHC (32-36) g/dL RDW Std Deviation (36.4-46.3) fL RDW Coeff of Leela (11.5-14.5) % Plt Count (130-400) K/uL MPV (7.4-10.4) fL Immature Gran % (Auto) % Neut % (Auto) % Lymph % (Auto) % [place] % (Auto) % Eos % (Auto) % Baso % (Auto) % Neut # (Auto) (1.4-6.5) K/uL Lymph # (Auto) (1.2-3.4) K/uL [place] # (Auto) (0.11-0.59) K/uL Eos # (Auto) (0-0.5) K/uL Baso # (Auto) (0-0.2) K/uL Immature Gran # (Auto) (0.00-0.02) K/uL PT (9.0-12.0) Seconds INR (0.9-1.1) APTT (21.0-31.0) Seconds PTT Ratio Sodium (136-145) mmol/L Potassium (3.5-5.1) mmol/L Chloride (98-107) mmol/L Carbon Dioxide (21-32) mmol/L Anion Gap (3-11) BUN (7-18) mg/dl Creatinine (0.6-1.4) mg/dl Est Cr Clr Drug Dosing Est GFR ( Amer) ml/min Est GFR (Non-Af Amer) ml/min BUN/Creatinine Ratio (10-20) Glucose (70-99) mg/dl Lactate 3.1 H* (0.4-2.0) mmol/L Calcium (8.5-10.1) mg/dl Total Bilirubin (0.2-1) mg/dl AST (15-37) U/L ALT (12-78) U/L Alkaline Phosphatase (45-117) U/L Troponin I (0-0.045) ng/ml NT-Pro-B Natriuret Pep (0-900) pg/ml Total Protein (6.4-8.2) gm/dl Albumin (3.4-5.0) gm/dl Globulin (2.5-4.0) gm/dl Albumin/Globulin Ratio (0.9-2) Lipase (73-393) U/L Procalcitonin < 0.05 (0-0.5) ng/ml COVID-19 Eval Order Covid19 at [facility] SARS-CoV-2 (PCR) (Negative) 07/29/21 Range/Units 14:35 WBC (4.8-10.8) K/uL RBC (4.7-6.1) M/uL Hgb (14.0-18.0) g/dL Hct (42-52) % MCV (80-100) fL MCH (25-34) pg MCHC (32-36) g/dL RDW Std Deviation (36.4-46.3) fL RDW Coeff of Leela (11.5-14.5) % Plt Count (130-400) K/uL MPV (7.4-10.4) fL Immature Gran % (Auto) % Neut % (Auto) % Lymph % (Auto) % [place] % (Auto) % Eos % (Auto) % Baso % (Auto) % Neut # (Auto) (1.4-6.5) K/uL Lymph # (Auto) (1.2-3.4) K/uL [place] # (Auto) (0.11-0.59) K/uL Eos # (Auto) (0-0.5) K/uL Baso # (Auto) (0-0.2) K/uL Immature Gran # (Auto) (0.00-0.02) K/uL PT (9.0-12.0) Seconds INR (0.9-1.1) APTT (21.0-31.0) Seconds PTT Ratio Sodium (136-145) mmol/L Potassium (3.5-5.1) mmol/L Chloride (98-107) mmol/L Carbon Dioxide (21-32) mmol/L Anion Gap (3-11) BUN (7-18) mg/dl Creatinine (0.6-1.4) mg/dl Est Cr Clr Drug Dosing Est GFR ( Amer) ml/min Est GFR (Non-Af Amer) ml/min BUN/Creatinine Ratio (10-20) Glucose (70-99) mg/dl Lactate (0.4-2.0) mmol/L Calcium (8.5-10.1) mg/dl Total Bilirubin (0.2-1) mg/dl AST (15-37) U/L ALT (12-78) U/L Alkaline Phosphatase (45-117) U/L Troponin I (0-0.045) ng/ml NT-Pro-B Natriuret Pep (0-900) pg/ml Total Protein (6.4-8.2) gm/dl Albumin (3.4-5.0) gm/dl Globulin (2.5-4.0) gm/dl Albumin/Globulin Ratio (0.9-2) Lipase (73-393) U/L Procalcitonin (0-0.5) ng/ml COVID-19 Eval Order SARS-CoV-2 (PCR) NEGATIVE (Negative) Imaging Data Attestation: I personally reviewed and interpreted this imaging study as follows: My Impression: Chest x-rayno acute infiltrate, failure, pneumothorax seen Radiologist's Impression: Chest X-Ray 07/29/21 13:16 XR chest 1V portable CLINICAL HISTORY: Chest Pain COMPARISON STUDY: March 15, 2021 FINDINGS: No pneumothorax. No pleural effusion. Slightly asymmetrical hazy opacity seen at the left mid to lower lung, was also seen on prior study and most likely representing prominent epicardial fat pad however small atelectasis or infiltrate might also be included in differential diagnosis. Cardiomediastinal silhouette is stable and slightly prominent. No significant pulmonary vascular congestion.. Osseous structures: unremarkable Midline sternotomy wires are again seen. Fracture of the third wire is again seen. IMPRESSION: 1. Redemonstration of opacity within left lower lung which could represent prominent epicardial fat pad or atelectasis/infiltrate. ACT 112: Negative or not required by law. The above report was generated using voice recognition software. It may contain grammatical, syntax or spelling errors. Electronically signed by: Jane Gresham DO 07/29/2021 1:[address] 07/29/21 14:41 CT head/brain wo con CLINICAL HISTORY: syncope COMPARISON STUDY: April 02, 2019 TECHNIQUE: Axial CT of the brain is performed from the vertex to the skull base. IV contrast was not administered for this examination. A dose lowering technique was utilized adhering to the principles of ALARA. CT DOSE: 614.27 mGy.cm FINDINGS: No acute intracranial hemorrhage, no midline shift or space occupying lesions. Stable focal area of encephalomalacia is again seen within right occipital lobe. Stable lacunar infarct is seen within left basal ganglia. There are patchy white matter hypodensities likely on a small vessel basis. There is no evidence of pathologic ventricular dilatation. No acute depressed skull fractures seen. Visualized paranasal sinuses and mastoid air cells are patent and well-aerated. IMPRESSION: No acute intracranial hemorrhage, no midline shift or space occupying lesions. Stable encephalomalacia within the right occipital lobe. Stable lacunar infarct within left basal ganglia. No acute depressed skull fractures. ACT 112: Negative or not required by law. The above report was generated using voice recognition software. It may contain grammatical, syntax or spelling errors. Electronically signed by: Jane Gresham DO 07/29/2021 5:33 PM ECG Data Attestation: I personally reviewed and interpreted this ECG as follows: Indication: + weakness Rhythm: + normal sinus ECG Intervals/blocks: + Left bundle branch block, + Normal QT and + Normal [place] ECG ST segments: + Normal ST segments Comparison ECG Date: from (03/18/21) Change: the following changes noted (Left bundle branch block is now present) Additional Comments: EKG #2: Normal sinus rhythm rate of 64. Left bundle branch block. No significant change compared to EKG #1 MDM Narrative This patient comes in as described above. He was placed on a [place] operator in room C1. His blood pressure when I saw him was in the one teens systolic. The rest of his vitals were stable. EKG was obtained blood work was obtained. Given his history I am concerned about a cardiac event but also sepsis and other potential etiologies for symptoms. His initial blood pressure was low but then came up and went back down a little bit he was given gentle fluid bolus and this seemed to resolve he still said he felt lightheaded. His BUN and creatinine were elevated and he may be just clinically dry. Potassium was just mildly elevated but do not think high enough to cause his EKG changes he had no chest pain his troponin is negative thus far. Chest x-ray does not show any definite acute infiltrate failure or pneumothorax. I did discuss case with Dr. Rylan Olmstead and consulted him to see him in the ER as well as the patient has a very complex medical history and his felt that this is the same way he is present in the past with cardiac disease. Dr. Olmstead did do an echocardiogram and evaluate the patient in the ER. The [facility] are going to admit the patient for further treatment and evaluation. Continuous cardiac monitoring: Orders placed in the EMR for continuous [place] operator. Upon my interpretation the patient was noted to be normal sinus rhythm with a rate of 65 Impression & Plan Syncope, Dehydration, Personal history of coronary artery disease, Lab test negative for COVID-19 virus, Acute renal insufficiency, Acute hypotension Discharge Plan Visit Data Chief Complaint: Hypotension Stated Complaint: VERY LOW BP,PASSING OUT,CARDIAC HX ED Provider: Bryant Willson Discharge Problem: Syncope, Dehydration, Personal history of coronary artery disease, Lab test negative for COVID-19 virus, Acute renal insufficiency, Acute hypotension Patient Disposition: Admitted As Inpatient Discharge Instructions Interventions: ED Discharge Assessment Last Done: 07/29/21 16:14 Discharge Problem: Syncope Qualifiers: Syncope type: unspecified Qualified Code(s): R55 - Syncope and collapse
[2021-07-29 13:27] LABS: Basophils # (auto) 0.04 K/uL (0-0.2); Basophils % (auto) 0.4 %; Eosinophils # (auto) 0.11 K/uL (0-0.5); Hematocrit (blood only) 32.7 % (42-52); Hemoglobin 10.5 g/dL (14.0-18.0); Immature Granulocytes # (auto) 0.02 K/uL (0.00-0.02); Immature Granulocytes % (auto) 0.2 %; Lymphocytes # (auto) 1.49 K/uL (1.2-3.4); Lymphocytes % (auto) 14.2 %; Mean Corpuscular Hemoglobin 31.3 pg (25-34); Mean Corpuscular Hgb Conc 32.1 g/dL (32-36); Mean Corpuscular Volume 97.6 fL (80-100); Mean Platelet Volume 11.5 fL (7.4-10.4); Monocytes % (auto) 3.8 %; Neutrophils # (auto) 8.44 K/uL (1.4-6.5); Neutrophils % (auto) 80.4 %; Platelet Count 186 K/uL (130-400); RDW Standard Deviation 53.5 fL (36.4-46.3); Red Blood Count 3.35 M/uL (4.7-6.1)
[2021-07-29 13:33] LABS: INR 1.1 (0.9-1.1); Partial Thromboplastin Ratio 0.8; Partial Thromboplastin Time 20.2 Seconds (21.0-31.0); Prothrombin Time 11.2 Seconds (9.0-12.0)
[2021-07-29] MEDS ORDERED: SODIUM CHLORIDE 0.9% 500 ML IV ONE (13:33)
[2021-07-29 13:34] LABS: Alanine Aminotransferase 32 U/L (12-78); Albumin Level 3.1 gm/dl (3.4-5.0); Aspartate Aminotransferase 23 U/L (15-37); BUN Creatinine Ratio 28.5 (10-20); Blood Urea Nitrogen 50 mg/dl (7-18); Calcium 8.1 mg/dl (8.5-10.1); Carbon Dioxide 25 mmol/L (21-32); Chloride 113 mmol/L (98-107); Est GFR (African American) 44.1 ml/min; Est GFR (Non-African American) 38.1 ml/min; Glucose 164 mg/dl (70-99); Lipase 373 U/L (73-393); Potassium 5.4 mmol/L (3.5-5.1); Sodium 142 mmol/L (136-145)
[2021-07-29 13:39] LABS: Albumin Globulin Ratio 1.1 (0.9-2); Alkaline Phosphatase 56 U/L (45-117); Bilirubin,Total 0.7 mg/dl (0.2-1); Globulin 2.9 gm/dl (2.5-4.0); NT Pro B Type Natriuretic Pept 791 pg/ml (0-900); Troponin I < 0.015 ng/ml (0-0.045)
--- NOTE | 2021-07-29 13:46 | XRay Report ---
XR chest 1V portable CLINICAL HISTORY: Chest Pain COMPARISON STUDY: March 15, 2021 FINDINGS: No pneumothorax. No pleural effusion. Slightly asymmetrical hazy opacity seen at the left mid to lower lung, was also seen on prior study a nd most likely representing prominent epicardial fat pad however small atelectasis or infiltrate migh t also be included in differential diagnosis. Cardiomediastinal silhouette is stable and slightly prominent. No significant pulmonary vascular congestion.. Osseous structures: unremarkable Midline sternotomy wires are again seen. Fracture of the third wire is again seen. IMPRESSION: 1. Redemonstration of opacity within left lower lung which could represent prominent epicardial fat pad or atelectasis/infiltrate. ACT 112: Negative or not required by law. The above report was generated using voice recognition software. It may contain grammatical, syntax o r spelling errors. Electronically signed by: Jane Gresham DO 07/29/2021 1:44 PM
--- NOTE | 2021-07-29 13:55 | Cardiology Consultation ---
Date of Consultation July 29, 2021 Assessment & Plan (1) Syncope: (2) Cardiomyopathy, ischemic: Patient is a very complex 75-year-old male with known ischemic cardiomyopathy with extensive inferior posterior scar but no overt ischemia by recent testing. This morning he experienced symptoms of acute nausea followed by diaphoresis and syncope hypotension observed but no overt arrhythmia. EKGs reflect left bundle branch with mild hyper acute T waves. Echocardiogram nares reveals no change from prior recent testing and no new wall motion abnormalities. Initial troponin negative. Plan we will admit for observation on telemetry. Suspect patient will ultimately need to proceed to diagnostic cardiac catheterization given plans for biventricular pacemaker defibrillator implantation. No indications for acute coronary angiography currently. Anticoagulation only if significant change in troponin Alternate noncardiac causes of complaints will need to be considered including infection and vasovagal History of Present Illness Reason for Consultation: Syncope Requesting Physician: Dr. Willson History of Present Illness Patient is a 75-year-old male with complex history which includes 1. Coronary artery disease s/p CABG x2 with a FOLEY to the LAD and vein graft to the OM with followup STEMI and collapse of the vein graft, PCI to the LAD and RCA March 2019 revealing a patent FOLEY 3. H/o Nonsustained ventricular tachycardia 4. Ischemic cardiomyopathy, EF 30-34%, , NYHA class 3 5. Carotid artery stenosis- 6. History of CVA 7. Peripheral arterial disease 8. Paroxysmal atrial fibrillation, s/p PABLO/DCCV 03/16/2021, on amiodarone and Eliquis 9. Diabetestype 2 10. Intermittent/persistent LBBB Patient presents accompanied by his . Patient seen and examined in the emergency room acutely. History is notable for an episode of nausea earlier this morning followed by mild diaphoresis, lightheadedness hypotension and subsequent syncope. Out for approximately 2 minutes. Event witnessed by his . No tachycardia or bradycardia arrhythmias observed marked hypotension on testing found. No recent fevers chills unexplained infections. Had a busy day day prior with more urine than usual activity. Taking medications as prescribed without recent change. No acute weight gain with weight trending downward over the past several months. No bleeding difficulties melena hematochezia dysuria hematuria. Patient in the emergency room with only mild queasiness but feels well otherwise. Blood pressures within normal limits Initial troponin negative. EKG reflects left bundle branch block with mild hyperacute changes of the T waves Echocardiogram done at bedside acutely reflects no new wall motion abnormalities EF 35 to 40% with extensive inferior posterior scar. Allergies Allergy/AdvReac Type Severity Reaction Status Date / Time No Known Allergies Allergy Verified 07/29/21 14:48 Home Medications Medication Instructions Recorded Confirmed Type isosorbide mononitrate 30 mg 30 mg PO QAM #0 tab 08/12/14 07/29/21 History tablet,extended release 24 hr metformin 500 mg tablet 500 mg PO BID #0 tab 02/10/17 07/29/21 History acetaminophen 500 mg tablet 1,000 mg PO UD PRN #0 tab 08/15/17 07/29/21 History (Acetaminophen Extra Strength) nitroglycerin 0.4 mg sublingual 0.4 mg SUBLINGUAL Q5M PRN #0 08/15/17 07/29/21 History tablet rosuvastatin 40 mg tablet 40 mg PO HS 03/30/19 07/29/21 History tamsulosin 0.4 mg capsule 0.4 mg PO DAILY 03/30/19 07/29/21 History clopidogrel 75 mg tablet 75 mg PO DAILY 03/15/21 07/29/21 History gabapentin 800 mg tablet 800 mg PO TID 03/15/21 07/29/21 History indomethacin 50 mg capsule 50 mg PO TID PRN 03/15/21 07/29/21 History montelukast 10 mg tablet 10 mg PO DAILY 03/15/21 07/29/21 History cyanocobalamin (vitamin B-12) 5,000 mcg SUBLINGUAL DAILY 07/29/21 07/29/21 History 5,000 mcg sublingual tablet (Vitamin B-12) ezetimibe 10 mg tablet 10 mg PO DAILY 07/29/21 07/29/21 History zicrivwi-frn-zkgkh acid 0.4 1 tab PO DAILY 07/29/21 07/29/21 History mg-lycopene 300 mcg-lutein 250 mcg tablet (Centrum Silver) Patient History Medical History Atrial fibrillation with rapid ventricular response Chronic bundle branch block LBBB CKD (chronic kidney disease), stage III Coronary artery disease 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 CVA (cerebral vascular accident) Diabetes Diabetes mellitus, type 2 Dyslipidemia GERD (gastroesophageal reflux disease) GERD (gastroesophageal reflux disease) Gout HTN (hypertension) Hypertension Paroxysmal A-fib TIA (transient ischemic attack) Surgical History H/O umbilical hernia repair x2 History of coronary artery stent placement LAD and RCA 2019 History of Amie fundoplication S/P CABG x 2 S/P repair of paraesophageal hernia Status post cataract extraction Status post tonsillectomy Family History Mother Stroke Social History Smoking Status: Former smoker Second Hand Exposure: No; Hx Alcohol Use: Yes Alcohol type: beer Hx Substance Use: No Preferred Language: Salvadorean Communication Ability: Effective 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 Beliefs That Will Affect Care: None Current Living Situation: Spouse current occupation: Retired Other Information That Helps Us Care for You: No Feels Safe at Home: Yes Safety Concerns: Feels Safe At This Time Assistive Devices: None Assistive Devices Comment: at home Review of Systems Review of Systems: All systems reviewed & are unremarkable except as noted in HPI & below Physical Exam Constitutional: WD/WN, vitals as above Eyes: PERRL, conjunctivae normal, anicteric sclerae ENMT: external ear and nose normal, oropharynx normal Neck: trachea midline, no thyromegaly Respiratory: normal respiratory effort, lungs clear to auscultation Cardiovascular: Rate/Rhythm: regular rate and regular rhythm Heart Sounds: normal S1, normal S2 and + murmur (Grade 1/6 systolic); no gallop Palpation: normal PMI Vessels: normal carotid upstroke and radial pulses present; no JVD and no carotid bruit Extremities: no edema Gastrointestinal (Abdomen): normal bowel sounds, soft, nontender, no hepatosplenomegaly Musculoskeletal: no cyanosis or clubbing, extremities motor strength 5/5 Skin: no rashes, warm and dry Neurologic: PERRL, EOMI, accommodation nl, no face palsy, no dysarthria Psychiatric: A+Ox3, euthymic affect Results & Data ([facility]) Vital Signs (Past 12 Hours) Vital Signs Temp Pulse Resp BP Pulse Ox 07/29/21 13:16 70 18 98 07/29/21 13:02 66 22 111/57 L 98 07/29/21 12:48 36.7 C 70 18 93/57 L 98 Laboratory Results Laboratory Results - last 24 hr 07/29/21 07/29/21 07/29/21 13:05 13:05 13:05 WBC 10.50 RBC 3.35 L Hgb 10.5 L Hct 32.7 L MCV 97.6 MCH 31.3 MCHC 32.1 RDW Std Deviation 53.5 H RDW Coeff of Leela 15.0 H Plt Count 186 MPV 11.5 H Immature Gran % (Auto) 0.2 Neut % (Auto) 80.4 Lymph % (Auto) 14.2 Colbert % (Auto) 3.8 Eos % (Auto) 1.0 Baso % (Auto) 0.4 Neut # (Auto) 8.44 H Lymph # (Auto) 1.49 Colbert # (Auto) 0.40 Eos # (Auto) 0.11 Baso # (Auto) 0.04 Immature Gran # (Auto) 0.02 PT 11.2 INR 1.1 APTT 20.2 L PTT Ratio 0.8 Sodium 142 Potassium 5.4 H Chloride 113 H Carbon Dioxide 25 Anion Gap 4.0 BUN 50 H Creatinine 1.74 H Est Cr Clr Drug Dosing Not Reportable Est GFR ( Amer) 44.1 Est GFR (Non-Af Amer) 38.1 BUN/Creatinine Ratio 28.5 H Glucose 164 H Lactate Calcium 8.1 L Total Bilirubin 0.7 AST 23 ALT 32 Alkaline Phosphatase 56 Troponin I < 0.015 NT-Pro-B Natriuret Pep 791 Total Protein 6.0 L Albumin 3.1 L Globulin 2.9 Albumin/Globulin Ratio 1.1 Lipase 373 07/29/21 13:34 WBC RBC Hgb Hct MCV MCH MCHC RDW Std Deviation RDW Coeff of Leela Plt Count MPV Immature Gran % (Auto) Neut % (Auto) Lymph % (Auto) Colbert % (Auto) Eos % (Auto) Baso % (Auto) Neut # (Auto) Lymph # (Auto) Colbert # (Auto) Eos # (Auto) Baso # (Auto) Immature Gran # (Auto) PT INR APTT PTT Ratio Sodium Potassium Chloride Carbon Dioxide Anion Gap BUN Creatinine Est Cr Clr Drug Dosing Est GFR ( Amer) Est GFR (Non-Af Amer) BUN/Creatinine Ratio Glucose Lactate Pending Calcium Total Bilirubin AST ALT Alkaline Phosphatase Troponin I NT-Pro-B Natriuret Pep Total Protein Albumin Globulin Albumin/Globulin Ratio Lipase Diagnostic Findings Stress nuclear imaging 05/08/2021 Interpretation Summary Gated analysis reveals akinesis of the inferior lateral myocardium with an estimated left ventricular ejection fraction of 41%. Overall this pharmacologic nuclear stress test reveals a transmural infarct of the inferior lateral myocardium and no active ischemia. Echocardiogram 06/19/2021 The qualitative LV ejection fraction is 35-39% (moderately reduced). The left ventricular cavity size is mildly enlarged. The LV wall thickness is mildly increased (concentric). The septal motion is abnormal consistent with left bundle branch block. There is hypokinesis to akinesis of the inferior and posterior wall segements. The left ventricular diastolic function is mildly abnormal (grade I). Mild aortic valve regurgitation is present. Mild mitral regurgitation is present. Mild tricuspid regurgitation is present. The estimated pulmonary artery systolic pressure is 35-40mm Hg. The aortic root is mildly enlarged (4.3 cm). Preliminary echocardiogram 07/29/2021 no significant change from above
--- NOTE | 2021-07-29 15:46 | History & Physical Report ---
Date of Service July 29, 2021 Assessment & Plan (1) Syncope: Plan: Pt is 75 y/o M with PMH CAD with CABG x2 FOLEY to LAD and vein graft to OM, history of PCI to LAD/RCA 2018, ischemic cardiomyopathy with EF 35%, history of nonsustained SVT, history of CVA/TIA, PAF, DM II, HTN, HLD, bilateral asymptomatic carotid artery stenosis, chronic high-grade stenosis bilateral MCA presented to ER with complaint of syncope this morning. Patient reports this morning around 8 AM started feeling hot and dizzy. Patient's took his blood pressure several times and had trended down to 63/55. Then reports patient had syncopal episode and fell off barstool. Patient's reports patient was unresponsive for approximately 1 to 2 minutes. Denies chest pain, shortness of breath, vision changes, visual disturbance, palpitations, TSANG. In ER initial BP 93/57 up to 111/57. EKGs LBBB with no acute changes. Initial troponin negative. CT head: No acute intracranial changes. Was given 500 mL NSS bolus in ER. DDx: Arrhythmia, orthostatic hypotension, vasovagal syncope Admit telemetry Orthostatic vital signs Trend troponin CBC, BMP in a.m. Patient's -Piper would like contacted with updates as she reports patient has hard time retaining information. Her home phone number is [phone]. Her cell phone number is [phone] (2) Cardiomyopathy, ischemic: Plan: CAD History CABG x2 FOLEY to LAD and vein graft to OM, history of PCI to LAD/RCA 2018 Patient was seen by Dr. Yung 07/28/2021 for consideration of BiV ICD. History echo 06/19/2021: EF: 35-39% History of cardiac cath 03/2019: LAD: Ostial occluded, CX: Small moderate disease, OM 2: Occluded fills with right to left collaterals, RCA: Moderate disease, FOLEY-LAD pain, SVG-CX: Known occlusion Nuclear stress: 04/28/2021: No active ischemia, infarct inferior lateral myocardium Denies chest pain, shortness of breath. Initial troponin negative. Continue Plavix, isosorbide, statin Cardiology consult, Dr. Olmstead saw patient. Does not feel indications for acute coronary angiography currently. (3) Elevated lactic acid level: Plan: Lactate: 3.1 UA, unremarkable WBC: 10.5 Denies fever, chills, cough, chest pain, shortness of breath, urinary symptoms. May be secondary to hypertension Blood cultures pending Repeat lactate Will hold on further IV fluids currently (4) Hyperkalemia: Plan: K: 5.4 Repeat BMP this evening (5) Paroxysmal A-fib: Plan: Currently in sinus rhythm Patient no longer on amiodarone or Eliquis (6) CKD (chronic kidney disease), stage III: Plan: Cr: 1.7. Baseline 1.2-1.6 Monitor renal functions, avoid nephrotoxic agents when possible (7) Diabetes mellitus, type 2: Plan: A1c: 6.3 on 04/05/2021 Hold Metformin NovoLog sliding scale per protocol (8) CVA (cerebral vascular accident): Plan: History of chronic high-grade stenosis bilateral MCA Continue Plavix, statin (9) HTN (hypertension): Plan: Was taken off of losartan secondary to hypotension Patient initially hypotensive in ER (10) Chronic bundle branch block: Plan: Chronic LBBB DVT Prophylaxis -Heparin SQ Full Code as per discussion with pt Follows with Dr Bell for routine care Pt was seen and care coordinated with Dr Quintero. See addendum History of Present Illness Chief Complaint: Syncope Primary Care Provider: Chava Bell MD Pt is 75 y/o M with PMH CAD with CABG x2 FOLEY to LAD and vein graft to OM, history of PCI to LAD/RCA 2018, ischemic cardiomyopathy with EF 35%, history of nonsustained SVT, history of CVA/TIA, PAF, DM II, HTN, HLD, bilateral asymptomatic carotid artery stenosis, chronic high-grade stenosis bilateral MCA presented to ER with complaint of syncope this morning. Patient reports this morning around 8 AM started feeling hot. He reports when up to kitchen and sat on barstool to try and cool down but continued to feel hot and felt dizzy. Patient's took his blood pressure several times and had trended down to 63/55. Then reports patient had syncopal episode and fell off barstool. Patient's reports patient was unresponsive for approximately 1 to 2 minutes. Patient denies any known injury or headache. Denies chest pain, shortness of breath, vision changes, visual disturbance, palpitations. Denies fever/chills, diaphoresis, N/V/D/C, TSANG, neck pain, cough, sore throat, choking, otalgia, rhinorrhea, abdominal pain, paresthesias, weakness, extremity weakness, extremity edema, rashes, urinary symptoms. Patient was seen by Dr. Yung 07/28/2021 for consideration of BiV ICD. [place] [facility] [place]. History echo 06/19/2021: EF: 35-39% History of cardiac cath 03/2019: LAD: Ostial occluded, CX: Small moderate disease, OM 2: Occluded fills with right to left collaterals, RCA: Moderate disease, FOLEY-LAD pain, SVG-CX: Known occlusion Nuclear stress: 04/28/2021: No active ischemia, infarct inferior lateral myocardium In ER initial BP 93/57 up to 111/57. No arrhythmias noted on monitor while in ER. EKGs LBBB with no acute changes. CT head: No acute intracranial changes. Was given 500 mL NSS bolus in ER. Patient being admitted for further observation. Allergies Allergy/AdvReac Type Severity Reaction Status Date / Time No Known Allergies Allergy Verified 07/29/21 14:48 Home Medications Medication Instructions Recorded Confirmed Type isosorbide mononitrate 30 mg 30 mg PO QAM #0 tab 08/12/14 07/29/21 History tablet,extended release 24 hr metformin 500 mg tablet 500 mg PO BID #0 tab 02/10/17 07/29/21 History acetaminophen 500 mg tablet 1,000 mg PO UD PRN #0 tab 08/15/17 07/29/21 History (Acetaminophen Extra Strength) nitroglycerin 0.4 mg sublingual 0.4 mg SUBLINGUAL Q5M PRN #0 08/15/17 07/29/21 History tablet rosuvastatin 40 mg tablet 40 mg PO HS 03/30/19 07/29/21 History tamsulosin 0.4 mg capsule 0.4 mg PO DAILY 03/30/19 07/29/21 History clopidogrel 75 mg tablet 75 mg PO DAILY 03/15/21 07/29/21 History gabapentin 800 mg tablet 800 mg PO TID 03/15/21 07/29/21 History indomethacin 50 mg capsule 50 mg PO TID PRN 03/15/21 07/29/21 History montelukast 10 mg tablet 10 mg PO DAILY 03/15/21 07/29/21 History cyanocobalamin (vitamin B-12) 5,000 mcg SUBLINGUAL DAILY 07/29/21 07/29/21 History 5,000 mcg sublingual tablet (Vitamin B-12) ezetimibe 10 mg tablet 10 mg PO DAILY 07/29/21 07/29/21 History ucicxopz-hgf-niwpm acid 0.4 1 tab PO DAILY 07/29/21 07/29/21 History mg-lycopene 300 mcg-lutein 250 mcg tablet (Centrum Silver) Past Med/Surg History Medical History (Updated 07/29/21 @ 19:21 by Bryant Willson MD) Atrial fibrillation with rapid ventricular response Chronic bundle branch block LBBB CKD (chronic kidney disease), stage III Coronary artery disease 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 CVA (cerebral vascular accident) Diabetes Diabetes mellitus, type 2 Dyslipidemia GERD (gastroesophageal reflux disease) GERD (gastroesophageal reflux disease) Gout HTN (hypertension) Hypertension Paroxysmal A-fib TIA (transient ischemic attack) Surgical History H/O umbilical hernia repair x2 History of coronary artery stent placement LAD and RCA 2019 History of Amie fundoplication S/P CABG x 2 S/P repair of paraesophageal hernia Status post cataract extraction Status post tonsillectomy Family History Mother Stroke Social History Smoking Status: Former smoker Second Hand Exposure: No; Hx Alcohol Use: Yes Alcohol type: beer Hx Substance Use: No Preferred Language: Chadian Communication Ability: Effective 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 Beliefs That Will Affect Care: None Current Living Situation: Spouse current occupation: Retired Other Information That Helps Us Care for You: No Feels Safe at Home: Yes Safety Concerns: Feels Safe At This Time Assistive Devices: Hearing Aid - Bilateral Assistive Devices Comment: at home Review of Systems Review of Systems: All systems reviewed & are unremarkable except as noted in HPI & below Physical Exam Physical Exam: General: no distress, WDWN Head: normocephalic, atraumatic Eyes: PERRL, EOM's intact, conjunctiva non-injected, anicteric ENT: normal inspection external ears, nose, mucous membranes moist Neck: supple, trachea midline Lungs: clear, no respiratory distress, no wheezing/rhonchi/rales CV: RRR, + systolic murmur, no pretibial edema Abd: normal BS, soft, non-tender Ext: no cyanosis, no calf tenderness Neuro: A&O x 3, no focal deficits noted, normal affect Skin: warm, dry Results & Data Results & Data ([facility]) Vital Signs (Past 12 Hours) Vital Signs Temp Pulse Resp BP Pulse Ox 07/29/21 14:30 64 20 132/67 98 07/29/21 14:00 65 17 113/81 98 07/29/21 13:31 62 14 91/49 L 07/29/21 13:16 70 18 98 07/29/21 13:02 66 22 111/57 L 98 07/29/21 12:48 36.7 C 70 18 93/57 L 98 Laboratory Results Short CBC 07/29/21 Range/Units 13:05 WBC 10.50 (4.8-10.8) K/uL Hgb 10.5 L (14.0-18.0) g/dL Hct 32.7 L (42-52) % Plt Count 186 (130-400) K/uL BMP 07/29/21 13:05 Sodium 142 Potassium 5.4 H Chloride 113 H Carbon Dioxide 25 BUN 50 H Creatinine 1.74 H Glucose 164 H Calcium 8.1 L Cardiac Enzymes 07/29/21 Range/Units 13:05 Troponin I < 0.015 (0-0.045) ng/ml Liver Function 07/29/21 Range/Units 13:05 Total Bilirubin 0.7 (0.2-1) mg/dl AST 23 (15-37) U/L ALT 32 (12-78) U/L Alkaline Phosphatase 56 (45-117) U/L Albumin 3.1 L (3.4-5.0) gm/dl Urine 07/29/21 Range/Units 15:51 Urine Color Yellow Urine Appearance Clear (Clear) Urine pH 5.5 (4.5-7.5) Ur Specific [place] 1.022 (1.000-1.030) Urine Protein Negative (Negative) Urine Glucose (UA) Negative (Negative) Diagnostic Findings Chest X-Ray 07/29/21 13:16 XR chest 1V portable CLINICAL HISTORY: Chest Pain COMPARISON STUDY: March 15, 2021 FINDINGS: No pneumothorax. No pleural effusion. Slightly asymmetrical hazy opacity seen at the left mid to lower lung, was also seen on prior study and most likely representing prominent epicardial fat pad however small atelectasis or infiltrate might also be included in differential diagnosis. Cardiomediastinal silhouette is stable and slightly prominent. No significant pulmonary vascular congestion.. Osseous structures: unremarkable Midline sternotomy wires are again seen. Fracture of the third wire is again seen. IMPRESSION: 1. Redemonstration of opacity within left lower lung which could represent prominent epicardial fat pad or atelectasis/infiltrate. ACT 112: Negative or not required by law. The above report was generated using voice recognition software. It may contain grammatical, syntax or spelling errors. Electronically signed by: Jane Gresham DO 07/29/2021 1:[address] 07/29/21 14:41 CT head/brain wo con CLINICAL HISTORY: syncope COMPARISON STUDY: April 02, 2019 TECHNIQUE: Axial CT of the brain is performed from the vertex to the skull bas e. IV contrast was not administered for this examination. A dose lowering technique was utilized adhering to the principles of ALARA. CT DOSE: 614.27 mGy.cm FINDINGS: No acute intracranial hemorrhage, no midline shift or space occupying lesions. Stable focal area of encephalomalacia is again seen within right occipital lobe. Stable lacunar infarct is seen within left basal ganglia. There are patchy white matter hypodensities likely on a small vessel basis. There is no evidence of pathologic ventricular dilatation. No acute depressed skull fractures seen. Visualized paranasal sinuses and mastoid air cells are patent and well-aerated. IMPRESSION: No acute intracranial hemorrhage, no midline shift or space occupying lesions. Stable encephalomalacia within the right occipital lobe. Stable lacunar infarct within left basal ganglia. No acute depressed skull fractures. ACT 112: Negative or not required by law. The above report was generated using voice recognition software. It may contain grammatical, syntax or spelling errors. Electronically signed by: Jane Gresham DO 07/29/2021 5:33 PM Code Status & VTE Plan VTE Prophylaxis Plan VTE Prophylaxis will be ordered: Yes Supervising Physician Co-Signing Physician Notes Date of Service: July 29, 2021 History and physical exam performed by me, as detailed by Marysol Sosa PA-C History notable for 75 y/o M with PMH CAD with CABG x2 FOLEY to LAD and vein graft to OM, history of PCI to LAD/RCA 2018, ischemic cardiomyopathy with EF 35%, history of nonsustained SVT, history of CVA/TIA, PAF, DM II, HTN, HLD, bilateral asymptomatic carotid artery stenosis, chronic high-grade stenosis bilateral MCA, being considered for biventricular ICD who presents with an episode of syncope this morning after having dizziness and blood pressure trending down to 63/55 has been measured by at home. Syncopal episode lasted 1 to 2 minutes. Patient has no complaints at this time. Physical exam grossly unremarkable Lab work notable for potassium of 5.4, chloride of 113, creatinine of 1.74, lactate of 3.3, troponin of less than 0.015 Chest x-ray reported redemonstration of opacity in the left lower lobe which could be prominent epicardial fat or atelectasis/infiltrates -Syncopal episode Admit to telemetry for monitoring Cardiology consult Orthostatic vital signs Repeat lactates. Elevated lactate likely related to syncope with hypotension. Patient denies any respiratory symptoms. X-ray finding likely atelectasis or prominent epicardial fat. Procalcitonin is negative. Trend troponins Agree with other plans as detailed by Marysol Sosa PA-C
--- NOTE | 2021-07-29 15:54 | Electrocardiogram Report ---
Test Reason : Blood Pressure : / mmHG Vent. Rate : 064 BPM Atrial Rate : 064 BPM P-R Int : 170 ms QRS Dur : 146 ms QT Int : 464 ms P-R-T Axes : 028 001 085 degrees QTc Int : 478 ms Normal sinus rhythm Left bundle branch block Abnormal ECG When compared with ECG of 29-JUL-2021 13:00, (unconfirmed) No significant change was found Confirmed by Steven Hensley ([id number]) on 07/29/2021 3:54:12 PM Referred By: REFERRED SELF Confirmed By:Juan Hensley
--- NOTE | 2021-07-29 15:55 | Electrocardiogram Report ---
Test Reason : Blood Pressure : / mmHG Vent. Rate : 066 BPM Atrial Rate : 066 BPM P-R Int : 170 ms QRS Dur : 148 ms QT Int : 460 ms P-R-T Axes : 030 007 115 degrees QTc Int : 482 ms Normal sinus rhythm Left bundle branch block Abnormal ECG When compared with ECG of 18-MAR-2021 08:59, Left bundle branch block is now Present Confirmed by Steven Hensley ([id number]) on 07/29/2021 3:54:39 PM Referred By: REFERRED SELF Confirmed By:Juan Hensley
[2021-07-29 16:10] LABS: Appearance Urine Clear (Clear); Bilirubin Urine Negative (Negative); Blood Urine Negative (Negative); Color Urine Yellow; Glucose Urine UA Negative (Negative); Ketones Urine Trace (Negative); Leukocyte Esterase Urine Negative (Negative); Nitrite Urine Negative (Negative); Protein Urine Negative (Negative); Specific Gravity Urine 1.022 (1.000-1.030); Urobilinogen Urine Negative (Negative); pH Urine 5.5 (4.5-7.5)
[2021-07-29] MEDS ORDERED: DEXTROSE 50% 50 ML SYRINGE IV PRN (17:15)
[2021-07-29] MEDS ORDERED: CARBOHYDRATES FOR HYPOGLYCEMIA PO PRN (17:15)
[2021-07-29] MEDS ORDERED: GLUCOSE 40% GEL 15 GM TUBE PO PRN (17:15)
[2021-07-29] MEDS ORDERED: ACETAMINOPHEN 325 MG TAB PO PRN (17:15)
[2021-07-29] MEDS ORDERED: POLYETHYLENE (MIRALAX) 17 GM PACK PO PRN (17:15)
[2021-07-29] MEDS ORDERED: GLUCAGON FOR INJ 1 MG VIAL SQ PRN (17:15)
[2021-07-29] MEDS ORDERED: GLUCOSE 10 TABS/TUBE PO PRN (17:15)
--- NOTE | 2021-07-29 17:35 | CT Scan Report ---
CT head/brain wo con CLINICAL HISTORY: syncope COMPARISON STUDY: April 02, 2019 TECHNIQUE: Axial CT of the brain is performed from the vertex to the skull base. IV contrast was not administered for this examination. A dose lowering technique was utilized adhering to the principles of ALARA. CT DOSE: 614.27 mGy.cm FINDINGS: No acute intracranial hemorrhage, no midline shift or space occupying lesions. Stable focal area of encephalomalacia is again seen within right occipital lobe. Stable lacunar infar ct is seen within left basal ganglia. There are patchy white matter hypodensities likely on a small vessel basis. There is no evidence of pathologic ventricular dilatation. No acute depressed skull fractures seen. Visualized paranasal sinuses and mastoid air cells are patent and well-aerated. IMPRESSION: No acute intracranial hemorrhage, no midline shift or space occupying lesions. Stable encephalomalacia within the right occipital lobe. Stable lacunar infarct within left basal ganglia. No acute depressed skull fractures. ACT 112: Negative or not required by law. The above report was generated using voice recognition software. It may contain grammatical, syntax o r spelling errors. Electronically signed by: Jane Gresham DO 07/29/2021 5:33 PM
--- NOTE | 2021-07-29 18:17 | Communication Note ---
Date of Service: July 29, 2021 History and physical exam performed by me, as detailed by Marysol Sosa PA-C History notable for 75-year-old man with history of ischemic cardiomyopathy with EF of 35 to 39% being considered for biventricular ICD who presents with an episode of syncope this morning after having dizziness and blood pressure trending down to 63/55 has been measured by at home. Syncopal episode lasted 1 to 2 minutes. Patient has no complaints at this time. Physical exam grossly unremarkable Lab work notable for potassium of 5.4, chloride of 113, creatinine of 1.74, lactate of 3.3, troponin of less than 0.015 Chest x-ray reported redemonstration of opacity in the left lower lobe which could be prominent epicardial fat or atelectasis/infiltrates -Syncopal episode Admit to telemetry for monitoring Cardiology consult Orthostatic vital signs Repeat lactates. Elevated lactate likely related to syncope with hypotension. Patient denies any respiratory symptoms. X-ray finding likely atelectasis or prominent epicardial fat. Procalcitonin is negative. Trend troponins Agree with other plans as detailed by Marysol Sosa PA-C
[2021-07-29] MEDS: INSULIN ASPART 100 UNITS/ML 3 ML PEN SC SCH ×2 (18:40→22:09)
[2021-07-29] MEDS ORDERED: PNEUMOCOCCAL POLYSACCHARIDES 25 MCG/0.5 ML VIAL/SYR IM ONE (18:57)
[2021-07-29 20:12] LABS: BUN Creatinine Ratio 48.1 (10-20); Creatinine Clr Calc Pharmacy 59.8 ml/min; Est GFR (Non-African American) 47.4 ml/min; Potassium 4.9 mmol/L (3.5-5.1)
[2021-07-29] MEDS: GABAPENTIN 800 MG TAB PO SCH (21:04)
[2021-07-29] MEDS: ROSUVASTATIN CALCIUM 20 MG TAB PO SCH (21:05)
[2021-07-29] MEDS: HEPARIN SOD 5,000 UNIT/0.5 ML VIAL SQ SCH (21:05)
[2021-07-30] MEDS ORDERED: SODIUM CHLORIDE 0.9% 500 ML IV SCH (00:15)
[2021-07-30] MEDS: HEPARIN SOD 5,000 UNIT/0.5 ML VIAL SQ SCH (05:44)
[2021-07-30 06:34] LABS: Hematocrit (blood only) 23.9 % (42-52); Hemoglobin 7.6 g/dL (14.0-18.0); Mean Corpuscular Hemoglobin 30.4 pg (25-34); Mean Corpuscular Hgb Conc 31.8 g/dL (32-36); Mean Corpuscular Volume 95.6 fL (80-100); Mean Platelet Volume 10.9 fL (7.4-10.4); Platelet Count 133 K/uL (130-400); RDW Coefficient of Variation 15.1 % (11.5-14.5); RDW Standard Deviation 53.2 fL (36.4-46.3); White Blood Count 4.82 K/uL (4.8-10.8)
[2021-07-30 06:51] LABS: BUN Creatinine Ratio 60.9 (10-20); Calcium 7.7 mg/dl (8.5-10.1); Creatinine Clr Calc Pharmacy 65.2 ml/min; Est GFR (Non-African American) 52.7 ml/min; Magnesium 2.1 mg/dl (1.8-2.4); Potassium 4.3 mmol/L (3.5-5.1)
[2021-07-30 07:32] LABS: Basophils # (auto) 0.02 K/uL (0-0.2); Basophils % (auto) 0.4 %; Eosinophils # (auto) 0.03 K/uL (0-0.5); Eosinophils % (auto) 0.6 %; Hypochromasia Present; Lymphocytes % (auto) 24.9 %; Monocytes # (auto) 0.47 K/uL (0.11-0.59); Monocytes % (auto) 9.8 %; Neutrophils % (auto) 64.3 %
--- NOTE | 2021-07-30 07:39 | Electrocardiogram Report ---
Test Reason : Blood Pressure : / mmHG Vent. Rate : 080 BPM Atrial Rate : 080 BPM P-R Int : 166 ms QRS Dur : 146 ms QT Int : 444 ms P-R-T Axes : 094 031 167 degrees QTc Int : 512 ms Sinus rhythm with frequent Premature ventricular complexes Left bundle branch block Abnormal ECG When compared with ECG of 29-JUL-2021 13:32, Premature ventricular complexes are now Present T wave inversion now evident in Inferior leads Confirmed by Steven Hensley ([id number]) on 07/30/2021 7:38:47 AM Referred By: REFERRED SELF Confirmed By:Juan Hensley
--- NOTE | 2021-07-30 07:53 | Gastrointestinal Consultation ---
Date of Consultation July 30, 2021 Assessment & Plan (1) Symptomatic anemia: (2) GI bleed: (3) Hematochezia: concern for UGI bleed that is brisk at this time, elevated BUN. possible PUD vs. AVM or other etiology. Recs: NPO EGD today to evaluate and treat supportive care, IVFs protonix 40 mg IV BID thank you for allowing me to participate in the care of this patient History of Present Illness Attending Physician: Gi Quintero MD History of Present Illness 75 y/o M with PMH CAD with CABG x2 FOLEY to LAD and vein graft to OM, history of PCI to LAD/RCA 2018, ischemic cardiomyopathy with EF 35%, history of nonsustained SVT, history of CVA/TIA, PAF, DM II, HTN, HLD, bilateral asymptomatic carotid artery stenosis, chronic high-grade stenosis bilateral MCA presented to ER with complaint of syncope. Also noted to have dark stools. He started feeling dizzy and hot and fell off a barstool during syncopal episode, was unresponsive for 1-2 minutes. Hgb is noted to be 7.6 from baseline of 14 in February. Having dark red blood per rectum, BUN is elevated to 81. labs reviewed, VSS. Allergies Allergy/AdvReac Type Severity Reaction Status Date / Time No Known Allergies Allergy Verified 07/29/21 14:48 Home Medications Medication Instructions Recorded Confirmed Type isosorbide mononitrate 30 mg 30 mg PO QAM #0 tab 08/12/14 07/29/21 History tablet,extended release 24 hr metformin 500 mg tablet 500 mg PO BID #0 tab 02/10/17 07/29/21 History acetaminophen 500 mg tablet 1,000 mg PO UD PRN #0 tab 08/15/17 07/29/21 History (Acetaminophen Extra Strength) nitroglycerin 0.4 mg sublingual 0.4 mg SUBLINGUAL Q5M PRN #0 08/15/17 07/29/21 History tablet rosuvastatin 40 mg tablet 40 mg PO HS 03/30/19 07/29/21 History tamsulosin 0.4 mg capsule 0.4 mg PO DAILY 03/30/19 07/29/21 History clopidogrel 75 mg tablet 75 mg PO DAILY 03/15/21 07/29/21 History gabapentin 800 mg tablet 800 mg PO TID 03/15/21 07/29/21 History indomethacin 50 mg capsule 50 mg PO TID PRN 03/15/21 07/29/21 History montelukast 10 mg tablet 10 mg PO DAILY 03/15/21 07/29/21 History cyanocobalamin (vitamin B-12) 5,000 mcg SUBLINGUAL DAILY 07/29/21 07/29/21 History 5,000 mcg sublingual tablet (Vitamin B-12) ezetimibe 10 mg tablet 10 mg PO DAILY 07/29/21 07/29/21 History uyhssizq-kmr-vdsis acid 0.4 1 tab PO DAILY 07/29/21 07/29/21 History mg-lycopene 300 mcg-lutein 250 mcg tablet (Centrum Silver) Patient History Medical History Atrial fibrillation with rapid ventricular response Chronic bundle branch block LBBB CKD (chronic kidney disease), stage III Coronary artery disease 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 CVA (cerebral vascular accident) Diabetes Diabetes mellitus, type 2 Dyslipidemia GERD (gastroesophageal reflux disease) GERD (gastroesophageal reflux disease) Gout HTN (hypertension) Hypertension Paroxysmal A-fib TIA (transient ischemic attack) Surgical History H/O umbilical hernia repair x2 History of coronary artery stent placement LAD and RCA 2019 History of Amie fundoplication S/P CABG x 2 S/P repair of paraesophageal hernia Status post cataract extraction Status post tonsillectomy Family History Mother Stroke Social History Smoking Status: Former smoker Second Hand Exposure: No; Hx Alcohol Use: Yes Alcohol type: beer Hx Substance Use: No Preferred Language: [place] Communication Ability: Effective Child Care Development Specialist Required: No Beliefs That Will Affect Care: None Current Living Situation: Spouse current occupation: Retired Other Information That Helps Us Care for You: No Feels Safe at Home: Yes Safety Concerns: Feels Safe At This Time Assistive Devices: None Assistive Devices Comment: at home Review of Systems Constitutional: no fever, no chills and no weight loss Eyes: as per Subjective / HPI Ear, Nose, Mouth, Throat: as per Subjective / HPI Respiratory: no dyspnea and no dyspnea on exertion Cardiovascular: no chest pain and no palpitations Gastrointestinal: as per Subjective / HPI Musculoskeletal: no joint pain and no swelling Integumentary: no rash and no lesions Neurologic: no numbness and no paresthesia Psychiatric: no depression and no anxiety Endocrine: no fatigue Hematologic / Lymphatic: no easy bleeding and no easy bruising Physical Exam Constitutional: WD/WN, vitals as above Eyes: EOM intact bilaterally Neck: normal visual inspection Respiratory: normal respiratory effort, lungs clear to auscultation Cardiovascular: RRR, no murmur, no edema Gastrointestinal (Abdomen): Inspection/Auscultation: abdomen normal to inspection; abdomen not distended Percussion/Palpation: abdomen soft; abdomen nontender and no hepatosplenomegaly Musculoskeletal: Extremities: no cyanosis Gait: normal gait Skin: no rashes, warm and dry Neurologic: moves all extremities Psychiatric: A+Ox3, euthymic affect Results & Data ([facility]) Vital Signs (Past 12 Hours) Vital Signs Temp Pulse Pulse Resp BP Pulse Ox 07/30/21 05:20 36.7 C 74 18 100/58 L 100 07/30/21 04:09 99/64 L 07/30/21 03:12 36.9 C 71 16 93/55 L 94 07/30/21 01:31 102/61 07/30/21 00:10 78 76/44 L 07/29/21 23:50 37.2 C 78 17 90/51 L 96 07/29/21 23:00 81 07/29/21 20:05 36.8 C 83 16 114/61 98 PG Care Time/CCT Total # of Minutes Spent Total Time Spent with Patient: Total time spent is greater than 50% in coordination of care (as documented) at patient's floor/unit and/or counseling patient: Coding Level of Care Code 37930 Initial Inpt Care Lvl 3 Diagnoses Symptomatic anemia D64.9 GI bleed K92.2 Hematochezia K92.1
[2021-07-30] MEDS ORDERED: METOCLOPRAMIDE HCL INJ 5 MG/ML 2 ML VIAL IV ONE (08:01)
--- NOTE | 2021-07-30 08:12 | Anesthesiology Consultation ---
Date of Service July 30, 2021 Assessment & Plan Chart Review Chart Review: Acceptable Risk for Surgery and Patient NOT seen in Pre Admission Testing Consults Requested none ASA ASA4 Proposed Anesthesia Anesthesia Type: General History Surgery Operation Date: 07/30/21 09:00 Proposed Procedures p Esophagogastroduodenoscopy - Alessio Ray MD Height/Weight Height: 6 ft 2 in Weight: 109.6 kg Allergies Allergy/AdvReac Type Severity Reaction Status Date / Time No Known Allergies Allergy Verified 07/29/21 14:48 Medications Home Medications Medication Instructions Recorded Confirmed Last Taken isosorbide mononitrate 30 mg 30 mg PO QAM #0 tab 08/12/14 07/29/21 07/29/21 tablet,extended release 24 hr metformin 500 mg tablet 500 mg PO BID #0 tab 02/10/17 07/29/21 07/29/21 08:00 acetaminophen 500 mg tablet 1,000 mg PO UD PRN #0 tab 08/15/17 07/29/21 Unknown (Acetaminophen Extra Strength) nitroglycerin 0.4 mg sublingual 0.4 mg SUBLINGUAL Q5M PRN #0 08/15/17 07/29/21 Unknown tablet rosuvastatin 40 mg tablet 40 mg PO HS 03/30/19 07/29/21 07/28/21 tamsulosin 0.4 mg capsule 0.4 mg PO DAILY 03/30/19 07/29/21 07/29/21 clopidogrel 75 mg tablet 75 mg PO DAILY 03/15/21 07/29/21 07/29/21 gabapentin 800 mg tablet 800 mg PO TID 03/15/21 07/29/21 07/29/21 12:00 indomethacin 50 mg capsule 50 mg PO TID PRN 03/15/21 07/29/21 Unknown montelukast 10 mg tablet 10 mg PO DAILY 03/15/21 07/29/21 07/29/21 cyanocobalamin (vitamin B-12) 5,000 mcg SUBLINGUAL DAILY 07/29/21 07/29/21 07/29/21 5,000 mcg sublingual tablet (Vitamin B-12) ezetimibe 10 mg tablet 10 mg PO DAILY 07/29/21 07/29/21 07/29/21 lkskoope-jfl-qhzoo acid 0.4 1 tab PO DAILY 07/29/21 07/29/21 07/29/21 mg-lycopene 300 mcg-lutein 250 mcg tablet (Centrum Silver) Active Medications Generic Name Dose Route Start Last Admin Trade Name Freq PRN Reason Stop Dose Admin Gabapentin 800 mg 07/29/21 21:00 07/29/21 21:04 Gabapentin 800 Mg Tab PO 08/28/21 20:59 800 mg TID GITA Administration Heparin Sodium (Porcine) 5,000 units 07/29/21 22:00 07/30/21 05:44 Heparin Sod 5,000 Unit/0.5 Ml Vial SQ 08/28/21 21:59 5,000 units Q8 GITA Administration Insulin Aspart 0 units 07/29/21 17:15 07/29/21 22:09 Insulin Aspart 100 Units/Ml 3 Ml Pen SC 08/28/21 17:14 Not Given ACHS GITA Rosuvastatin Calcium 40 mg 07/29/21 21:00 07/29/21 21:05 Rosuvastatin Calcium 20 Mg Tab PO 08/28/21 20:59 40 mg HS GITA Administration Past Medical History Medical History Atrial fibrillation with rapid ventricular response Chronic bundle branch block LBBB CKD (chronic kidney disease), stage III Coronary artery disease 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 CVA (cerebral vascular accident) Diabetes Diabetes mellitus, type 2 Dyslipidemia GERD (gastroesophageal reflux disease) GERD (gastroesophageal reflux disease) Gout HTN (hypertension) Hypertension Paroxysmal A-fib TIA (transient ischemic attack) Exercise / Class Metabolic Activity III < 4 Walking/Shop/Light housework Past Family History Family History Mother Stroke Past Surgical History Surgical History H/O umbilical hernia repair x2 History of coronary artery stent placement LAD and RCA 2019 History of Amie fundoplication S/P CABG x 2 S/P repair of paraesophageal hernia Status post cataract extraction Status post tonsillectomy Past Anesthesia History No Hx of Anesthesia Complications and No Family Hx of Anesthesia Complications History of PONV No Hx of PONV and No Hx of Motion Sickness Social History Smoking Status: Former smoker tobacco type: cigarettes Hx Alcohol Use: Yes Alcohol type: beer alcohol intake frequency: holidays/special occasions only Hx Substance Use: No substance use type: does not use Physical Exam Vital Signs Last Vital Signs Temp 36.7 C 07/30/21 05:20 Pulse 74 07/30/21 05:20 Resp 18 07/30/21 05:20 BP 100/58 L 07/30/21 05:20 Pulse Ox 100 07/30/21 05:20 Testing Laboratory Results 07/30/21 05:59 07/30/21 05:59 PT 11.2 Seconds (9.0-12.0) 07/29/21 13:05 INR 1.1 (0.9-1.1) 07/29/21 13:05 APTT 20.2 Seconds (21.0-31.0) L 07/29/21 13:05 Urine Color Yellow 07/29/21 15:51 Urine Appearance Clear (Clear) 07/29/21 15:51 Urine pH 5.5 (4.5-7.5) 07/29/21 15:51 Ur Specific Richardson 1.022 (1.000-1.030) 07/29/21 15:51 Urine Protein Negative (Negative) 07/29/21 15:51 Urine Glucose (UA) Negative (Negative) 07/29/21 15:51 Urine Ketones Trace (Negative) H 07/29/21 15:51 Urine Nitrite Negative (Negative) 07/29/21 15:51 Ur Leukocyte Esterase Negative (Negative) 07/29/21 15:51 07/30/21 07/29/21 07:45 20:56 POC Glucose 158 H 106 H Electrocardiogram Date: 07/30/21 Findings: + NSR @ (at 80 w/frequent PVC's) and + LBBB Chest X-Ray Date: 07/29/21 Findings: + atelectasis (left lung atelectasis vs infiltrate) Echocardiogram Date: 03/16/21 EF: 30% LV Function: dysfunctional (severe LV dysfunction) RWMA: + akinetic and + hypokinetic Other Findings: + LVH Valvular Disease: + MR (mild) Other Testing carotid U/S-(03/31/19) LICA->70%; ALISSA-mod.plaque
--- NOTE | 2021-07-30 08:17 | Hospitalist Progress Note ---
Date of Service July 30, 2021 Assessment & Plan (1) Acute anemia: (2) GI bleed: (3) Syncope: Plan: Syncopal episode. Likely related to acute blood loss anemia due to GI bleed. Outpatient review of CBC showed hemoglobin ranges of 12-14. Hemoglobin was 10 on admission and dropped to 7.6 this morning. Patient was placed n.p.o. I discussed with lockstitch waistband setter who is going to take patient to EGD this morning. Monitor blood pressure Heparin subcu for DVT prophylaxis discontinued. Monitor hemoglobin and transfuse as needed to keep hemoglobin above 7. Imdur held for this morning as blood pressure was low normal (4) Cardiomyopathy, ischemic: Plan: CAD History CABG x2 FOLEY to LAD and vein graft to OM, history of PCI to LAD/RCA 2018 Patient was seen by Dr. Yung 07/28/2021 for consideration of BiV ICD. History echo 06/19/2021: EF: 35-39% History of cardiac cath 03/2019: LAD: Ostial occluded, CX: Small moderate disease, OM 2: Occluded fills with right to left collaterals, RCA: Moderate disease, FOLEY-LAD pain, SVG-CX: Known occlusion Nuclear stress: 04/28/2021: No active ischemia, infarct inferior lateral myocardium Denies any chest pain or shortness of breath. Troponin trend was negative (5) Elevated lactic acid level: Plan: Lactate: 3.1 on admission Low suspicion for infection based on presentation and findings. Elevated lactic likely due to hypotension resolved. Last was 1.4 (6) Hyperkalemia: Plan: K: 5.4 on admission Currently 4.3 (7) Paroxysmal A-fib: Plan: Currently in sinus rhythm Patient no longer on amiodarone or Eliquis (8) CKD (chronic kidney disease), stage III: Plan: Cr: 1.7 on admission. Baseline 1.2-1.6 Monitor renal functions, avoid nephrotoxic agents when possible Creatinine is 1.33 this morning (9) Diabetes mellitus, type 2: Plan: A1c: 6.3 on 04/05/2021 Hold Metformin NovoLog sliding scale per protocol (10) CVA (cerebral vascular accident): Plan: History of chronic high-grade stenosis bilateral MCA Continue Plavix, statin (11) HTN (hypertension): Plan: Was taken off of losartan secondary to hypotension Patient initially hypotensive in ER Imdur held this morning due to low normal blood pressures (12) Chronic bundle branch block: Plan: Chronic LBBB DVT Prophylaxis -Heparin SQ held in view of possible GI bleed Patient's -Piper would like contacted with updates as she reports patient has hard time retaining information. Her home phone number is [phone]. Her cell phone number is [phone] was updated Admission and Anticipated Discharge Date Admission Date: July 29, 2021 Subjective 75-year-old man with history of CAD status post CABG x2 FOLEY to LAD vein graft to OM, PCI to LAD and RCA in 2019, ischemic cardiomyopathy with EF of 35%, nonsustained SVT, CVA/TIA, proximal A. fib, DM type II, hypertension, hyperlipidemia, bilateral symptomatic carotid artery stenosis, chronic high- grade stenosis of bilateral MCA who came in yesterday for syncopal episode that happened yesterday morning. Was being recently evaluated by EP for possible biventricular ICD. Patient seen and examined this morning. Patient had 2 bowel movement overnight that was bloody as reported by patient and RN. Patient reported dizziness during bowel movement. Had episode of hypotension overnight and required fluid bolus. Patient currently denies any complaints. Denies any abdominal pain, nausea, vomiting. Denies any chest pain, cough, shortness of breath Denies palpitation, dizziness or fatigue. Review of Systems Review of Systems: Other review of system negative except as stated above Physical Exam Constitutional: + well hydrated and + obese; no acute distress Eyes: PERRL, conjunctivae normal, anicteric sclerae ENMT: external ear and nose normal, oropharynx normal Respiratory: normal respiratory effort, lungs clear to auscultation Cardiovascular: Rate/Rhythm: regular rate and regular rhythm S1-S2 Gastrointestinal (Abdomen): normal bowel sounds, soft, nontender, no hepatosplenomegaly Musculoskeletal: no cyanosis or clubbing, extremities motor strength 5/5 Neurologic: PERRL, EOMI, accommodation nl, no face palsy, no dysarthria Psychiatric: A+Ox3, euthymic affect Results & Data Results & Data ([facility]) Vital Signs (Past 12 Hours) Vital Signs Temp Pulse Pulse Resp BP Pulse Ox 07/30/21 05:20 36.7 C 74 18 100/58 L 100 07/30/21 04:09 99/64 L 07/30/21 03:12 36.9 C 71 16 93/55 L 94 07/30/21 01:31 102/61 07/30/21 00:10 78 76/44 L 07/29/21 23:50 37.2 C 78 17 90/51 L 96 07/29/21 23:00 81 Laboratory Results Abnormal lab results 07/29/21 07/29/21 07/29/21 Range/Units 13:05 13:05 13:05 RBC 3.35 L (4.7-6.1) M/uL Hgb 10.5 L (14.0-18.0) g/dL Hct 32.7 L (42-52) % MCHC (32-36) g/dL RDW Std Deviation 53.5 H (36.4-46.3) fL RDW Coeff of Leela 15.0 H (11.5-14.5) % MPV 11.5 H (7.4-10.4) fL Neut # (Auto) 8.44 H (1.4-6.5) K/uL APTT 20.2 L (21.0-31.0) Seconds Sodium (136-145) mmol/L Potassium 5.4 H (3.5-5.1) mmol/L Chloride 113 H (98-107) mmol/L BUN 50 H (7-18) mg/dl Creatinine 1.74 H (0.6-1.4) mg/dl BUN/Creatinine Ratio 28.5 H (10-20) Glucose 164 H (70-99) mg/dl POC Glucose (70-99) mg/dl Lactate (0.4-2.0) mmol/L Calcium 8.1 L (8.5-10.1) mg/dl Total Protein 6.0 L (6.4-8.2) gm/dl Albumin 3.1 L (3.4-5.0) gm/dl Urine Ketones (Negative) 07/29/21 07/29/21 07/29/21 Range/Units 13:34 15:51 16:00 RBC (4.7-6.1) M/uL Hgb (14.0-18.0) g/dL Hct (42-52) % MCHC (32-36) g/dL RDW Std Deviation (36.4-46.3) fL RDW Coeff of Leela (11.5-14.5) % MPV (7.4-10.4) fL Neut # (Auto) (1.4-6.5) K/uL APTT (21.0-31.0) Seconds Sodium (136-145) mmol/L Potassium (3.5-5.1) mmol/L Chloride (98-107) mmol/L BUN (7-18) mg/dl Creatinine (0.6-1.4) mg/dl BUN/Creatinine Ratio (10-20) Glucose (70-99) mg/dl POC Glucose (70-99) mg/dl Lactate 3.1 H* 3.3 H* (0.4-2.0) mmol/L Calcium (8.5-10.1) mg/dl Total Protein (6.4-8.2) gm/dl Albumin (3.4-5.0) gm/dl Urine Ketones Trace H (Negative) 07/29/21 07/29/21 07/29/21 Range/Units 17:34 19:37 20:56 RBC (4.7-6.1) M/uL Hgb (14.0-18.0) g/dL Hct (42-52) % MCHC (32-36) g/dL RDW Std Deviation (36.4-46.3) fL RDW Coeff of Leela (11.5-14.5) % MPV (7.4-10.4) fL Neut # (Auto) (1.4-6.5) K/uL APTT (21.0-31.0) Seconds Sodium (136-145) mmol/L Potassium (3.5-5.1) mmol/L Chloride 115 H (98-107) mmol/L BUN 70 H (7-18) mg/dl Creatinine 1.45 H (0.6-1.4) mg/dl BUN/Creatinine Ratio 48.1 H (10-20) Glucose 124 H (70-99) mg/dl POC Glucose 154 H 106 H (70-99) mg/dl Lactate (0.4-2.0) mmol/L Calcium 8.0 L (8.5-10.1) mg/dl Total Protein (6.4-8.2) gm/dl Albumin (3.4-5.0) gm/dl Urine Ketones (Negative) 07/30/21 07/30/21 07/30/21 Range/Units 05:59 05:59 07:45 RBC 2.50 L (4.7-6.1) M/uL Hgb 7.6 L (14.0-18.0) g/dL Hct 23.9 L (42-52) % MCHC 31.8 L (32-36) g/dL RDW Std Deviation 53.2 H (36.4-46.3) fL RDW Coeff of Leela 15.1 H (11.5-14.5) % MPV 10.9 H (7.4-10.4) fL Neut # (Auto) (1.4-6.5) K/uL APTT (21.0-31.0) Seconds Sodium 146 H (136-145) mmol/L Potassium (3.5-5.1) mmol/L Chloride 118 H (98-107) mmol/L BUN 81 H (7-18) mg/dl Creatinine (0.6-1.4) mg/dl BUN/Creatinine Ratio 60.9 H (10-20) Glucose 107 H (70-99) mg/dl POC Glucose 158 H (70-99) mg/dl Lactate (0.4-2.0) mmol/L Calcium 7.7 L (8.5-10.1) mg/dl Total Protein (6.4-8.2) gm/dl Albumin (3.4-5.0) gm/dl Urine Ketones (Negative) 07/30/21 Range/Units 10:12 RBC (4.7-6.1) M/uL Hgb (14.0-18.0) g/dL Hct (42-52) % MCHC (32-36) g/dL RDW Std Deviation (36.4-46.3) fL RDW Coeff of Leela (11.5-14.5) % MPV (7.4-10.4) fL Neut # (Auto) (1.4-6.5) K/uL APTT (21.0-31.0) Seconds Sodium (136-145) mmol/L Potassium (3.5-5.1) mmol/L Chloride (98-107) mmol/L BUN (7-18) mg/dl Creatinine (0.6-1.4) mg/dl BUN/Creatinine Ratio (10-20) Glucose (70-99) mg/dl POC Glucose 117 H (70-99) mg/dl Lactate (0.4-2.0) mmol/L Calcium (8.5-10.1) mg/dl Total Protein (6.4-8.2) gm/dl Albumin (3.4-5.0) gm/dl Urine Ketones (Negative) (1) Syncope Syncope type: unspecified Qualified Code(s): R55 - Syncope and collapse
[2021-07-30] MEDS: CYANOCOBALAMIN (VITAMIN B-12) 2,500 MCG TAB.SUBL SL SCH (08:22)
[2021-07-30] MEDS: INSULIN ASPART 100 UNITS/ML 3 ML PEN SC SCH ×4 (08:22→18:08)
[2021-07-30] MEDS: EZETIMIBE 10 MG TABLET PO SCH (08:22)
[2021-07-30] MEDS: GABAPENTIN 800 MG TAB PO SCH ×3 (08:22→21:16)
[2021-07-30] MEDS: ISOSORBIDE MONO EXTENDED REL 30 MG TABCR PO SCH (08:22)
[2021-07-30] MEDS: MONTELUKAST SODIUM 10 MG TABLET PO SCH (08:22)
[2021-07-30] MEDS: MULTIVITAMIN TAB PO SCH (08:23)
[2021-07-30] MEDS: TAMSULOSIN HCL 0.4 MG CAP PO SCH (08:23)
[2021-07-30] MEDS ORDERED: LIDOCAINE 2% 2 ML VIAL/AMP(20MG/ML) INFIL ONE (08:26)
[2021-07-30] MEDS ORDERED: GLYCOPYRROLATE 0.2 MG/ML VIAL ONE (08:26)
[2021-07-30] MEDS ORDERED: PROPOFOL IV EMULSION 10 MG/ML 20 ML VIAL IV ONE (08:26)
[2021-07-30] MEDS ORDERED: ONDANSETRON INJ 2 MG/ML 2 ML VIAL ONE ×2 (08:26→09:27)
[2021-07-30] MEDS ORDERED: SUCCINYLCHOLINE CHLORIDE 20 MG/ML 10 ML VIAL IV ONE (08:27)
[2021-07-30] MEDS ORDERED: FLUMAZENIL 0.1 MG/1 ML 10 ML VIAL IV PRN (08:59)
[2021-07-30] MEDS ORDERED: ONDANSETRON INJ 2 MG/ML 2 ML VIAL IV PRN (08:59)
[2021-07-30] MEDS ORDERED: ePHEDrine sulfate 50 MG/ML AMP IV PRN (08:59)
[2021-07-30] MEDS ORDERED: NALOXONE HCL 0.4 MG/1 ML VIAL/CARP IV PRN (08:59)
[2021-07-30] MEDS ORDERED: PROMETHAZINE HCL 12.5 MG in SODIUM CHLORIDE 0.9% 50 ML IV PRN (08:59)
[2021-07-30] MEDS ORDERED: ATROPINE SULFATE 0.1 MG/ML 10ML SYR IV PRN (08:59)
[2021-07-30] MEDS ORDERED: fentaNYL citrate 100 MCG/2 ML VIAL IV PRN (08:59)
[2021-07-30] MEDS ORDERED: LABETALOL HCL IV 5 MG/ML 20ML IV PRN (08:59)
[2021-07-30] MEDS ORDERED: CLOPIDOGREL BISULFATE 75 MG TAB PO SCH (09:00)
[2021-07-30] MEDS ORDERED: fentaNYL citrate 100 MCG/2 ML VIAL ONE (09:25)
[2021-07-30] MEDS ORDERED: PHENYLEPHRINE HCL 10 MG/ML VIAL ONE (09:30)
--- NOTE | 2021-07-30 09:53 | GI REPORT ---
Patient Name: Tulio Becerra Procedure Date: 07/30/2021 8:49 AM Date of : 1945 Admit Type: Inpatient Age: 75 Gender: Male Attending MD: Alessio Ray MD Procedure: Upper GI endoscopy Providers: Alessio Ray MD Referring MD: Gi Quintero Md Indications: Acute post hemorrhagic anemia, Melena Medicines: Monitored Anesthesia Care Complications: No immediate complications. Estimated blood loss: None. Estimated Blood Loss: Estimated blood loss: none. Procedure: Pre-Anesthesia Assessment: - Prior Anticoagulants: The patient has taken no previous anticoagulant or antiplatelet agents. - ASA Grade Assessment: II - A patient with mild systemic disease. After obtaining informed consent, the endoscope was passed under direct vision. Throughout the procedure, the patient's blood pressure, pulse, and oxygen saturations were monitored continuously. The Endoscope was introduced through the mouth, and advanced to the second part of duodenum. The upper GI endoscopy was accomplished without difficulty. The patient tolerated the procedure well. Findings: The examined esophagus was normal. A Dieulafoy lesion with oozing bleeding and stigmata of recent bleeding was found in the gastric fundus. Area was successfully injected with 6 mL of a 1:10,000 solution of epinephrine for hemostasis. Coagulation for hemostasis using bipolar probe was successful. For hemostasis, hemostatic spray was deployed. Several sprays were applied. There was no bleeding at the end of the procedure. The duodenal bulb and second portion of the duodenum were normal. Clotted blood was found in the stomach. extensive washing and suctioning was done using a therapeutic EGD scope. Impression: - Normal esophagus. - Dieulafoy lesion of stomach. - Normal duodenal bulb and second portion of the duodenum. - No specimens collected. Recommendation: - Return patient to [facility] for [facility] care. - NPO today. advance to clear liquids tomorrow morning if stable -protonix 40 mg IV BID -supportive care -strict avoidance of NSAIDS -repeat EGD in 8 weeks Alessio Ray MD 07/30/2021 9:53:01 AM This report has been signed electronically. Note Initiated On: 07/30/2021 8:49 AM Number of Addenda: 0 I attest to the content of the Intraoperative Record and orders documented therein, exceptions below {[id number]}
--- NOTE | 2021-07-30 09:54 | Procedure Note ---
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 lesion treated with epinephrine, bipolar 10 Fr, and hemospray successfully with hemostasis achieved. Recs: NPO today, advance to clear liquids tomorrow morning if stable protonix 40 mg IV BID repeat EGD in 8 weeks supportive care, IVFs Alessio Ray MD Gastroenterology Coding
--- NOTE | 2021-07-30 10:28 | Anesthesiology Progress Note ---
Date of Service July 30, 2021 Anesthesia Post Procedure Vital Signs Vital Signs: Temp Pulse Pulse Pulse Resp BP BP 07/30/21 10:25 82 17 113/64 07/30/21 10:15 102 H 19 113/62 07/30/21 10:05 99 H 22 114/65 07/30/21 09:56 36.4 C L 65 18 131/71 07/30/21 08:00 83 07/30/21 05:20 36.7 C 74 18 100/58 L 07/30/21 04:09 99/64 L 07/30/21 03:12 36.9 C 71 16 93/55 L 07/30/21 01:31 102/61 07/30/21 00:10 78 76/44 L 07/29/21 23:50 37.2 C 78 17 90/51 L 07/29/21 23:00 81 07/29/21 20:05 36.8 C 83 16 114/61 07/29/21 17:31 80 07/29/21 17:30 36.4 C L 81 18 111/67 07/29/21 16:14 80 20 102/57 L 07/29/21 16:00 102/57 L 07/29/21 15:30 87 16 140/96 07/29/21 15:00 68 19 139/71 07/29/21 14:30 64 20 132/67 07/29/21 14:00 65 17 113/81 07/29/21 13:31 62 14 91/49 L 07/29/21 13:16 70 18 07/29/21 13:02 66 22 111/57 L 07/29/21 12:48 36.7 C 70 18 93/57 L Pulse Ox 07/30/21 10:25 96 07/30/21 10:15 95 07/30/21 10:05 96 07/30/21 09:56 100 07/30/21 08:00 07/30/21 05:20 100 07/30/21 04:09 07/30/21 03:12 94 07/30/21 01:31 07/30/21 00:10 07/29/21 23:50 96 07/29/21 23:00 07/29/21 20:05 98 07/29/21 17:31 07/29/21 17:30 100 07/29/21 16:14 97 09/04/21 16:00 97 07/29/21 15:30 99 07/29/21 15:00 97 07/29/21 14:30 98 07/29/21 14:00 98 07/29/21 13:31 07/29/21 13:16 98 07/29/21 13:02 98 07/29/21 12:48 98 Transfer of Care Handoff Completed per policy Notes Mental Status: alert / awake / arousable Patient Amnestic to Procedure: Yes Nausea / Vomiting: adequately controlled Pain: adequately controlled Airway Patency, RR, SpO2: stable & adequate BP & HR: stable & adequate Hydration State: stable & adequate Anesthetic Complications: no major complications apparent
[2021-07-30] MEDS: NORMOSOL-R 1,000 ML IV SCH (11:26)
[2021-07-30] MEDS: PANTOprazole 40 MG in SYRINGE 0 ML IV SCH ×2 (11:37→21:17)
--- NOTE | 2021-07-30 12:11 | Cardiology Progress Note ---
Date of Service July 30, 2021 Assessment & Plan (1) Syncope: (2) Cardiomyopathy, ischemic: Plan: Patient is a very complex 75-year-old male with known ischemic cardiomyopathy with extensive inferior posterior scar but no overt ischemia by recent testing. This morning he experienced symptoms of acute nausea followed by diaphoresis and syncope hypotension observed but no overt arrhythmia. EKGs reflect left bundle branch with mild hyper acute T waves. Echocardiogram nares reveals no change from prior recent testing and no new wall motion abnormalities. Initial and serial troponin negative. Laboratory studies and clinical findings this morning reflect upper GI bleed confirmed on EGD. Per report patient no longer taking anticoagulation with apixaban nor amiodarone Plan: We will confirm cardiac medications. Source of presenting complaints likely GI bleed Admission and Anticipated Discharge Date Admission Date: July 29, 2021 Subjective Patient was seen and examined in recovery post EGD for upper GI bleed. No cardiac complaints though history limited Review of Systems Review of Systems: Unobtainable due to reduced consciousness Physical Exam Constitutional: WD/WN, vitals as above Eyes: PERRL, conjunctivae normal, anicteric sclerae ENMT: external ear and nose normal, oropharynx normal Neck: trachea midline, no thyromegaly Respiratory: normal respiratory effort, lungs clear to auscultation Cardiovascular: Rate/Rhythm: regular rate and regular rhythm Heart Sounds: normal S1, normal S2 and + murmur (Grade 1/6 systolic); no gallop Palpation: normal PMI Vessels: normal carotid upstroke and radial pulses present; no JVD and no carotid bruit Extremities: no edema Gastrointestinal (Abdomen): normal bowel sounds, soft, nontender, no hepatosplenomegaly Musculoskeletal: no cyanosis or clubbing, extremities motor strength 5/5 Skin: no rashes, warm and dry Neurologic: PERRL, EOMI, accommodation nl, no face palsy, no dysarthria Psychiatric: A+Ox3, euthymic affect Results & Data ([facility]) Vital Signs (Past 12 Hours) Vital Signs Temp Pulse Pulse Pulse Resp BP Pulse Ox 07/30/21 11:20 37.1 C 92 H 18 100/57 L 94 07/30/21 10:45 79 16 102/60 96 07/30/21 10:35 36.4 C L 80 17 113/64 95 07/30/21 10:25 82 17 113/64 96 07/30/21 10:15 102 H 19 113/62 95 07/30/21 10:05 99 H 22 114/65 96 07/30/21 09:56 36.4 C L 65 18 131/71 100 07/30/21 08:00 83 07/30/21 05:20 36.7 C 74 18 100/58 L 100 07/30/21 04:09 99/64 L 07/30/21 03:12 36.9 C 71 16 93/55 L 94 07/30/21 01:31 102/61 07/30/21 00:10 78 76/44 L Laboratory Results Laboratory Results - last 24 hr 07/29/21 07/29/21 07/29/21 13:05 13:05 13:05 WBC 10.50 RBC 3.35 L Hgb 10.5 L Hct 32.7 L MCV 97.6 MCH 31.3 MCHC 32.1 RDW Std Deviation 53.5 H RDW Coeff of Leela 15.0 H Plt Count 186 MPV 11.5 H Immature Gran % (Auto) 0.2 Neut % (Auto) 80.4 Lymph % (Auto) 14.2 Taney % (Auto) 3.8 Eos % (Auto) 1.0 Baso % (Auto) 0.4 Neut # (Auto) 8.44 H Lymph # (Auto) 1.49 Taney # (Auto) 0.40 Eos # (Auto) 0.11 Baso # (Auto) 0.04 Immature Gran # (Auto) 0.02 Hypochromasia PT 11.2 INR 1.1 APTT 20.2 L PTT Ratio 0.8 Sodium 142 Potassium 5.4 H Chloride 113 H Carbon Dioxide 25 Anion Gap 4.0 BUN 50 H Creatinine 1.74 H Est Cr Clr Drug Dosing Not Reportable Est GFR ( Amer) 44.1 Est GFR (Non-Af Amer) 38.1 BUN/Creatinine Ratio 28.5 H Glucose 164 H POC Glucose Estimat Average Glucose Hemoglobin A1c Lactate Calcium 8.1 L Magnesium Total Bilirubin 0.7 AST 23 ALT 32 Alkaline Phosphatase 56 Troponin I < 0.015 NT-Pro-B Natriuret Pep 791 Total Protein 6.0 L Albumin 3.1 L Globulin 2.9 Albumin/Globulin Ratio 1.1 Triglycerides Cholesterol LDL Cholesterol, Calc VLDL Cholesterol, Calc HDL Cholesterol Cholesterol/HDL Ratio Lipase 373 Procalcitonin Urine Color Urine Appearance Urine pH Ur Specific [place] Urine Protein Urine Glucose (UA) Urine Ketones Urine Blood Urine Nitrite Urine Bilirubin Urine Urobilinogen Ur Leukocyte Esterase COVID-19 Eval Order SARS-CoV-2 (PCR) 07/29/21 07/29/21 07/29/21 13:05 13:34 14:35 WBC RBC Hgb Hct MCV MCH MCHC RDW Std Deviation RDW Coeff of Leela Plt Count MPV Immature Gran % (Auto) Neut % (Auto) Lymph % (Auto) Taney % (Auto) Eos % (Auto) Baso % (Auto) Neut # (Auto) Lymph # (Auto) Taney # (Auto) Eos # (Auto) Baso # (Auto) Immature Gran # (Auto) Hypochromasia PT INR APTT PTT Ratio Sodium Potassium Chloride Carbon Dioxide Anion Gap BUN Creatinine Est Cr Clr Drug Dosing Est GFR ( Amer) Est GFR (Non-Af Amer) BUN/Creatinine Ratio Glucose POC Glucose Estimat Average Glucose Hemoglobin A1c Lactate 3.1 H* Calcium Magnesium Total Bilirubin AST ALT Alkaline Phosphatase Troponin I NT-Pro-B Natriuret Pep Total Protein Albumin Globulin Albumin/Globulin Ratio Triglycerides Cholesterol LDL Cholesterol, Calc VLDL Cholesterol, Calc HDL Cholesterol Cholesterol/HDL Ratio Lipase Procalcitonin < 0.05 Urine Color Urine Appearance Urine pH Ur Specific [place] Urine Protein Urine Glucose (UA) Urine Ketones Urine Blood Urine Nitrite Urine Bilirubin Urine Urobilinogen Ur Leukocyte Esterase COVID-19 Eval Order Covid19 at [facility] SARS-CoV-2 (PCR) 07/29/21 07/29/21 07/29/21 14:35 15:51 16:00 WBC RBC Hgb Hct MCV MCH MCHC RDW Std Deviation RDW Coeff of Leela Plt Count MPV Immature Gran % (Auto) Neut % (Auto) Lymph % (Auto) Taney % (Auto) Eos % (Auto) Baso % (Auto) Neut # (Auto) Lymph # (Auto) Taney # (Auto) Eos # (Auto) Baso # (Auto) Immature Gran # (Auto) Hypochromasia PT INR APTT PTT Ratio Sodium Potassium Chloride Carbon Dioxide Anion Gap BUN Creatinine Est Cr Clr Drug Dosing Est GFR ( Amer) Est GFR (Non-Af Amer) BUN/Creatinine Ratio Glucose POC Glucose Estimat Average Glucose Hemoglobin A1c Lactate 3.3 H* Calcium Magnesium Total Bilirubin AST ALT Alkaline Phosphatase Troponin I NT-Pro-B Natriuret Pep Total Protein Albumin Globulin Albumin/Globulin Ratio Triglycerides Cholesterol LDL Cholesterol, Calc VLDL Cholesterol, Calc HDL Cholesterol Cholesterol/HDL Ratio Lipase Procalcitonin Urine Color Yellow Urine Appearance Clear Urine pH 5.5 Ur Specific [place] 1.022 Urine Protein Negative Urine Glucose (UA) Negative Urine Ketones Trace H Urine Blood Negative Urine Nitrite Negative Urine Bilirubin Negative Urine Urobilinogen Negative Ur Leukocyte Esterase Negative COVID-19 Eval Order SARS-CoV-2 (PCR) NEGATIVE 07/29/21 07/29/21 07/29/21 17:34 19:37 19:37 WBC RBC Hgb Hct MCV MCH MCHC RDW Std Deviation RDW Coeff of Leela Plt Count MPV Immature Gran % (Auto) Neut % (Auto) Lymph % (Auto) Taney % (Auto) Eos % (Auto) Baso % (Auto) Neut # (Auto) Lymph # (Auto) Taney # (Auto) Eos # (Auto) Baso # (Auto) Immature Gran # (Auto) Hypochromasia PT INR APTT PTT Ratio Sodium 144 Potassium 4.9 Chloride 115 H Carbon Dioxide 25 Anion Gap 4.0 BUN 70 H Creatinine 1.45 H Est Cr Clr Drug Dosing 59.8 Est GFR ( Amer) 55.0 Est GFR (Non-Af Amer) 47.4 BUN/Creatinine Ratio 48.1 H Glucose 124 H POC Glucose 154 H Estimat Average Glucose Hemoglobin A1c Lactate Calcium 8.0 L Magnesium Total Bilirubin AST ALT Alkaline Phosphatase Troponin I < 0.015 NT-Pro-B Natriuret Pep Total Protein Albumin Globulin Albumin/Globulin Ratio Triglycerides Cholesterol LDL Cholesterol, Calc VLDL Cholesterol, Calc HDL Cholesterol Cholesterol/HDL Ratio Lipase Procalcitonin Urine Color Urine Appearance Urine pH Ur Specific [place] Urine Protein Urine Glucose (UA) Urine Ketones Urine Blood Urine Nitrite Urine Bilirubin Urine Urobilinogen Ur Leukocyte Esterase COVID-19 Eval Order SARS-CoV-2 (PCR) 07/29/21 07/29/21 07/30/21 19:37 20:56 00:51 WBC RBC Hgb Hct MCV MCH MCHC RDW Std Deviation RDW Coeff of Leela Plt Count MPV Immature Gran % (Auto) Neut % (Auto) Lymph % (Auto) Taney % (Auto) Eos % (Auto) Baso % (Auto) Neut # (Auto) Lymph # (Auto) Taney # (Auto) Eos # (Auto) Baso # (Auto) Immature Gran # (Auto) Hypochromasia PT INR APTT PTT Ratio Sodium Potassium Chloride Carbon Dioxide Anion Gap BUN Creatinine Est Cr Clr Drug Dosing Est GFR ( Amer) Est GFR (Non-Af Amer) BUN/Creatinine Ratio Glucose POC Glucose 106 H Estimat Average Glucose Hemoglobin A1c Lactate 1.4 Calcium Magnesium Total Bilirubin AST ALT Alkaline Phosphatase Troponin I 0.022 NT-Pro-B Natriuret Pep Total Protein Albumin Globulin Albumin/Globulin Ratio Triglycerides Cholesterol LDL Cholesterol, Calc VLDL Cholesterol, Calc HDL Cholesterol Cholesterol/HDL Ratio Lipase Procalcitonin Urine Color Urine Appearance Urine pH Ur Specific [place] Urine Protein Urine Glucose (UA) Urine Ketones Urine Blood Urine Nitrite Urine Bilirubin Urine Urobilinogen Ur Leukocyte Esterase COVID-19 Eval Order SARS-CoV-2 (PCR) 07/30/21 07/30/21 07/30/21 05:59 05:59 05:59 WBC 4.82 D RBC 2.50 L Hgb 7.6 L Hct 23.9 L MCV 95.6 MCH 30.4 MCHC 31.8 L RDW Std Deviation 53.2 H RDW Coeff of Leela 15.1 H Plt Count 133 MPV 10.9 H Immature Gran % (Auto) 0.0 Neut % (Auto) 64.3 Lymph % (Auto) 24.9 Taney % (Auto) 9.8 Eos % (Auto) 0.6 Baso % (Auto) 0.4 Neut # (Auto) 3.10 Lymph # (Auto) 1.20 Taney # (Auto) 0.47 Eos # (Auto) 0.03 Baso # (Auto) 0.02 Immature Gran # (Auto) 0.00 Hypochromasia Present PT INR APTT PTT Ratio Sodium 146 H Potassium 4.3 Chloride 118 H Carbon Dioxide 24 Anion Gap 4.0 BUN 81 H Creatinine 1.33 Est Cr Clr Drug Dosing 65.2 Est GFR ( Amer) 61.0 Est GFR (Non-Af Amer) 52.7 BUN/Creatinine Ratio 60.9 H Glucose 107 H POC Glucose Estimat Average Glucose Pending Hemoglobin A1c Pending Lactate Calcium 7.7 L Magnesium 2.1 Total Bilirubin AST ALT Alkaline Phosphatase Troponin I NT-Pro-B Natriuret Pep Total Protein Albumin Globulin Albumin/Globulin Ratio Triglycerides 92 Cholesterol 71 LDL Cholesterol, Calc 21 VLDL Cholesterol, Calc 18 HDL Cholesterol 32 Cholesterol/HDL Ratio 2 Lipase Procalcitonin Urine Color Urine Appearance Urine pH Ur Specific [place] Urine Protein Urine Glucose (UA) Urine Ketones Urine Blood Urine Nitrite Urine Bilirubin Urine Urobilinogen Ur Leukocyte Esterase COVID-19 Eval Order SARS-CoV-2 (PCR) 07/30/21 07/30/21 07/30/21 07:45 10:12 11:40 WBC RBC Hgb Hct MCV MCH MCHC RDW Std Deviation RDW Coeff of Leela Plt Count MPV Immature Gran % (Auto) Neut % (Auto) Lymph % (Auto) Taney % (Auto) Eos % (Auto) Baso % (Auto) Neut # (Auto) Lymph # (Auto) Taney # (Auto) Eos # (Auto) Baso # (Auto) Immature Gran # (Auto) Hypochromasia PT INR APTT PTT Ratio Sodium Potassium Chloride Carbon Dioxide Anion Gap BUN Creatinine Est Cr Clr Drug Dosing Est GFR ( Amer) Est GFR (Non-Af Amer) BUN/Creatinine Ratio Glucose POC Glucose 158 H 117 H 110 H Estimat Average Glucose Hemoglobin A1c Lactate Calcium Magnesium Total Bilirubin AST ALT Alkaline Phosphatase Troponin I NT-Pro-B Natriuret Pep Total Protein Albumin Globulin Albumin/Globulin Ratio Triglycerides Cholesterol LDL Cholesterol, Calc VLDL Cholesterol, Calc HDL Cholesterol Cholesterol/HDL Ratio Lipase Procalcitonin Urine Color Urine Appearance Urine pH Ur Specific [place] Urine Protein Urine Glucose (UA) Urine Ketones Urine Blood Urine Nitrite Urine Bilirubin Urine Urobilinogen Ur Leukocyte Esterase COVID-19 Eval Order SARS-CoV-2 (PCR) (1) Syncope Syncope type: unspecified Qualified Code(s): R55 - Syncope and collapse
--- NOTE | 2021-07-30 13:17 | Communication Note ---
Date of Service: July 30, 2021 Discussed clinical course with patient's . Confirm patient has not been taking apixaban nor amiodarone. We will restart amiodarone today given history of paroxysmal atrial fibrillation and ventricular arrhythmia EKG and
[2021-07-30] MEDS: AMIODARONE 200 MG TAB PO SCH (13:59)
[2021-07-30 15:21] LABS: Hematocrit (blood only) 23.9 % (42-52); Hemoglobin 7.9 g/dL (14.0-18.0); Mean Corpuscular Hemoglobin 31.2 pg (25-34); Mean Corpuscular Hgb Conc 33.1 g/dL (32-36); Mean Corpuscular Volume 94.5 fL (80-100); Mean Platelet Volume 10.8 fL (7.4-10.4); Platelet Count 153 K/uL (130-400); RDW Coefficient of Variation 15.4 % (11.5-14.5); RDW Standard Deviation 53.3 fL (36.4-46.3); Red Blood Count 2.53 M/uL (4.7-6.1); White Blood Count 7.68 K/uL (4.8-10.8)
[2021-07-30] MEDS: ROSUVASTATIN CALCIUM 20 MG TAB PO SCH (21:16)
[2021-07-31] MEDS: NORMOSOL-R 1,000 ML IV SCH (00:01)
[2021-07-31] MEDS: INSULIN ASPART 100 UNITS/ML 3 ML PEN SC SCH ×5 (00:43→20:58)
[2021-07-31 06:54] LABS: Hematocrit (blood only) 20.6 % (42-52); Hemoglobin 6.7 g/dL (14.0-18.0); Mean Corpuscular Hemoglobin 31.2 pg (25-34); Mean Corpuscular Hgb Conc 32.5 g/dL (32-36); Mean Corpuscular Volume 95.8 fL (80-100); Mean Platelet Volume 11.1 fL (7.4-10.4); Platelet Count 120 K/uL (130-400); RDW Coefficient of Variation 15.9 % (11.5-14.5); RDW Standard Deviation 55.7 fL (36.4-46.3); Red Blood Count 2.15 M/uL (4.7-6.1); White Blood Count 6.61 K/uL (4.8-10.8)
[2021-07-31 06:57] LABS: BUN Creatinine Ratio 45.3 (10-20); Creatinine Clr Calc Pharmacy 60.8 ml/min; Est GFR (African American) 56.9 ml/min; Est GFR (Non-African American) 49.1 ml/min; Potassium 4.1 mmol/L (3.5-5.1)
[2021-07-31] MEDS ORDERED: SODIUM CHLORIDE 0.9% 250 ML IV PRN (07:03)
--- NOTE | 2021-07-31 08:00 | Gastroenterology Progress Note ---
Date of Service July 31, 2021 Assessment & Plan (1) GI bleed: (2) 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: Plan: s/p EGD with hemostasis, feeling well now. dark stool is likely old blood emptying out, no active bleeding. Recs: --transfuse 1 unit PRBC at this time as hgb <7 --advance diet to clear liquids today --if bleeding recurs or worsening symptoms, may need to repeat EGD tomorrow/this week, would monitor for now --protonix 40 mg BID --EGD in 8 weeks tentatively, possibly sooner Alessio Ray MD Gastroenterology Admission and Anticipated Discharge Date Admission Date: July 29, 2021 Subjective no events overnight, had EGD yesterday with hemostasis of dielafoy lesion. No transfusions yesterday, he is feeling well today, had a black bowel movement this morning but no hematochezia, no hematemesis. labs reviewed, hgb is 6.7. VSS. Review of Systems Constitutional: no fever, no chills and no weight loss Eyes: as per Subjective / HPI Ear, Nose, Mouth, Throat: as per Subjective / HPI Respiratory: no dyspnea and no dyspnea on exertion Cardiovascular: no chest pain and no palpitations Gastrointestinal: as per Subjective / HPI Musculoskeletal: no joint pain and no swelling Integumentary: no rash and no lesions Neurologic: no numbness and no paresthesia Psychiatric: no depression and no anxiety Endocrine: no fatigue Hematologic / Lymphatic: no easy bleeding and no easy bruising Physical Exam Constitutional: WD/WN, vitals as above Eyes: EOM intact bilaterally Neck: normal visual inspection Respiratory: normal respiratory effort, lungs clear to auscultation Cardiovascular: RRR, no murmur, no edema Gastrointestinal (Abdomen): Inspection/Auscultation: abdomen normal to inspection; abdomen not distended Percussion/Palpation: abdomen soft; abdomen nontender and no hepatosplenomegaly Musculoskeletal: Extremities: no cyanosis Gait: normal gait Skin: no rashes, warm and dry Neurologic: moves all extremities Psychiatric: A+Ox3, euthymic affect Results & Data Results & Data ([facility]) Vital Signs (Past 12 Hours) Vital Signs Temp Pulse Pulse Resp BP Pulse Ox 07/31/21 07:01 36.7 C 69 18 100/64 97 07/31/21 04:25 36.8 C 66 16 107/67 97 07/30/21 23:30 63 07/30/21 23:14 36.3 C L 84 18 122/81 99 PG Care Time/CCT Total # of Minutes Spent Total Time Spent with Patient: Total time spent is greater than 50% in coordination of care (as documented) at patient's floor/unit and/or counseling patient: Coding Level of Care Code 08743 Subseq Hosp Care Lvl 3 Diagnoses GI bleed K92.2 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 K31.82
--- NOTE | 2021-07-31 08:14 | Cardiology Progress Note ---
Date of Service July 31, 2021 Assessment & Plan (1) Syncope: (2) Cardiomyopathy, ischemic: Plan: Patient is a very complex 75-year-old male with known ischemic cardiomyopathy with extensive inferior posterior scar but no overt ischemia by recent testing. This morning he experienced symptoms of acute nausea followed by diaphoresis and syncope hypotension observed but no overt arrhythmia. EKGs reflect left bundle branch with mild hyper acute T waves. Echocardiogram nares reveals no change from prior recent testing and no new wall motion abnormalities. Initial and serial troponin negative. Hospital course notable for regulation of upper GI bleed. Patient underwent endoscopic intervention. No clinical signs of ongoing bleeding. Hemoglobin down to 6.7 with anticipated transfusion today Plan: Continue current medications holding clopidogrel. Amiodarone resumed at 200 mg/day Repeat EKG in a.m. No indications for further cardiac testing currently we will follow as course proceed Admission and Anticipated Discharge Date Admission Date: July 29, 2021 Subjective Patient seen and examined, chart, medications, telemetry reviewed. Patient without complaints this morning. Bowel movements have substantially diminished. No abdominal pain or discomfort. No dizziness or lightheadedness. Telemetry reveals one brief run of atrial tachycardia last night No chest pains or shortness of breath Review of Systems Review of Systems: All systems reviewed & are unremarkable except as noted in Subjective Physical Exam Constitutional: WD/WN, vitals as above Eyes: PERRL, conjunctivae normal, anicteric sclerae ENMT: external ear and nose normal, oropharynx normal Neck: trachea midline, no thyromegaly Respiratory: normal respiratory effort, lungs clear to auscultation Cardiovascular: Rate/Rhythm: regular rate and regular rhythm Heart Sounds: normal S1, normal S2 and + murmur (Grade 1/6 systolic); no gallop Palpation: normal PMI Vessels: normal carotid upstroke and radial pulses present; no JVD and no carotid bruit Extremities: no edema Gastrointestinal (Abdomen): normal bowel sounds, soft, nontender, no hepatosplenomegaly Musculoskeletal: no cyanosis or clubbing, extremities motor strength 5/5 Skin: no rashes, warm and dry Neurologic: PERRL, EOMI, accommodation nl, no face palsy, no dysarthria Psychiatric: A+Ox3, euthymic affect Results & Data ([facility]) Vital Signs (Past 12 Hours) Vital Signs Temp Pulse Pulse Resp BP Pulse Ox 07/31/21 07:01 36.7 C 69 18 100/64 97 07/31/21 04:25 36.8 C 66 16 107/67 97 07/30/21 23:30 63 07/30/21 23:14 36.3 C L 84 18 122/81 99 Laboratory Results Laboratory Results - last 24 hr 07/30/21 07/30/21 07/30/21 10:12 11:40 15:13 WBC 7.68 RBC 2.53 L Hgb 7.9 L Hct 23.9 L MCV 94.5 MCH 31.2 MCHC 33.1 RDW Std Deviation 53.3 H RDW Coeff of Leela 15.4 H Plt Count 153 MPV 10.8 H Sodium Potassium Chloride Carbon Dioxide Anion Gap BUN Creatinine Est Cr Clr Drug Dosing Est GFR ( Amer) Est GFR (Non-Af Amer) BUN/Creatinine Ratio Glucose POC Glucose 117 H 110 H Calcium Blood Type Blood Type Recheck Antibody Screen Crossmatch 07/30/21 07/30/21 07/30/21 15:13 16:38 20:09 WBC RBC Hgb Hct MCV MCH MCHC RDW Std Deviation RDW Coeff of Leela Plt Count MPV Sodium Potassium Chloride Carbon Dioxide Anion Gap BUN Creatinine Est Cr Clr Drug Dosing Est GFR ( Amer) Est GFR (Non-Af Amer) BUN/Creatinine Ratio Glucose POC Glucose 105 H 93 Calcium Blood Type Blood Type Recheck A Positive Antibody Screen Crossmatch 07/31/21 07/31/21 07/31/21 00:11 05:41 05:41 WBC 6.61 RBC 2.15 L Hgb 6.7 L* Hct 20.6 L* MCV 95.8 MCH 31.2 MCHC 32.5 RDW Std Deviation 55.7 H RDW Coeff of Leela 15.9 H Plt Count 120 L MPV 11.1 H Sodium 146 H Potassium 4.1 Chloride 118 H Carbon Dioxide 25 Anion Gap 3.0 BUN 64 H Creatinine 1.41 H Est Cr Clr Drug Dosing 60.8 Est GFR ( Amer) 56.9 Est GFR (Non-Af Amer) 49.1 BUN/Creatinine Ratio 45.3 H Glucose 92 POC Glucose 104 H Calcium 8.0 L Blood Type Blood Type Recheck Antibody Screen Crossmatch 07/31/21 07/31/21 06:03 07:12 WBC RBC Hgb Hct MCV MCH MCHC RDW Std Deviation RDW Coeff of Leela Plt Count MPV Sodium Potassium Chloride Carbon Dioxide Anion Gap BUN Creatinine Est Cr Clr Drug Dosing Est GFR ( Amer) Est GFR (Non-Af Amer) BUN/Creatinine Ratio Glucose POC Glucose 100 H Calcium Blood Type Pending Blood Type Recheck Antibody Screen Pending Crossmatch See Detail (1) Syncope Syncope type: unspecified Qualified Code(s): R55 - Syncope and collapse
--- NOTE | 2021-07-31 08:17 | Hospitalist Progress Note ---
Date of Service July 31, 2021 Assessment & Plan (1) Acute anemia: (2) GI bleed: (3) Syncope: Plan: Syncopal episode. Due to acute blood loss anemia due to upper GI bleed. Outpatient review of CBC showed hemoglobin ranges of 12-14. Hemoglobin was 10 on admission and dropped to 7.6 yesterday. Status post EGD which showed bleeding from the LeFort lesion status post hemostasis Hb down to 6.7 this morning. Had 1 dark stool today. Likely old blood. Blood pressure stable. Continue to hold Plavix for 5 days as recommended by GI. Transfuse 1 PRBC Monitor CBC. Consent obtained from patient for blood transfusion. GI on board Start clears for today and monitor (4) Cardiomyopathy, ischemic: Plan: CAD History CABG x2 FOLEY to LAD and vein graft to OM, history of PCI to LAD/RCA 2018 Patient was seen by Dr. Yung 07/28/2021 for consideration of BiV ICD. History echo 06/19/2021: EF: 35-39% History of cardiac cath 03/2019: LAD: Ostial occluded, CX: Small moderate disease, OM 2: Occluded fills with right to left collaterals, RCA: Moderate disease, FOLEY-LAD pain, SVG-CX: Known occlusion Nuclear stress: 04/28/2021: No active ischemia, infarct inferior lateral myocardium Troponin trend was negative Patient started back on amiodarone per cardiology recommendation Plavix on hold as above (5) Elevated lactic acid level: Plan: Lactate: 3.1 on admission Low suspicion for infection based on presentation and findings. Elevated lactic likely due to hypotension, resolved. Last was 1.4 (6) Hyperkalemia: Plan: K: 5.4 on admission Currently 4.1 (7) Paroxysmal A-fib: Plan: Currently in sinus rhythm Patient no longer on amiodarone or Eliquis (8) CKD (chronic kidney disease), stage III: Plan: Cr: 1.7 on admission. Baseline 1.2-1.6 Monitor renal functions, avoid nephrotoxic agents when possible Creatinine is 1.41 this morning (9) Diabetes mellitus, type 2: Plan: A1c: 6.3 on 04/05/2021 Hold Metformin NovoLog sliding scale per protocol (10) CVA (cerebral vascular accident): Plan: History of chronic high-grade stenosis bilateral MCA Continue Plavix, statin (11) HTN (hypertension): Plan: Was taken off of losartan secondary to hypotension Patient initially hypotensive in ER Blood pressure still running low normal. Monitor (12) Chronic bundle branch block: Plan: Chronic LBBB DVT Prophylaxis -SCD PT/OT evaluation Patient's -Piper would like contacted with updates as she reports patient has hard time retaining information. Her home phone number is [phone]. Her cell phone number is [phone] was updated Admission and Anticipated Discharge Date Admission Date: July 29, 2021 Subjective 75-year-old man with history of CAD status post CABG x2 FOLEY to LAD vein graft to OM, PCI to LAD and RCA in 2019, ischemic cardiomyopathy with EF of 35%, nonsustained SVT, CVA/TIA, proximal A. fib, DM type II, hypertension, hyperlipidemia, bilateral symptomatic carotid artery stenosis, chronic high- grade stenosis of bilateral MCA who came in yesterday for syncopal episode that happened yesterday morning. Was being recently evaluated by EP for possible biventricular ICD. Found to have acute anemia due to blood loss. Had EGD which showed Gastric bleeding from Dieulafoy lesion status post epi injection and coagulation for hemostasis. Patient seen and examined today. Had one black stool this morning [first bowel movement since EGD]. Denies any dizziness, palpitation Denies any chest pain, shortness of breath, cough Denies any nausea, vomiting, abdominal pain or diarrhea. Review of Systems Review of Systems: Other review of systems negative except as above Physical Exam Constitutional: + well hydrated and + obese; no acute distress Eyes: PERRL, conjunctivae normal, anicteric sclerae ENMT: external ear and nose normal, oropharynx normal Respiratory: normal respiratory effort, lungs clear to auscultation Cardiovascular: Rate/Rhythm: regular rate and regular rhythm S1-S2. No pedal edema Gastrointestinal (Abdomen): normal bowel sounds, soft, nontender, no hepatosplenomegaly Musculoskeletal: no cyanosis or clubbing, extremities motor strength 5/5 Neurologic: PERRL, EOMI, accommodation nl, no face palsy, no dysarthria Psychiatric: A+Ox3, euthymic affect Results & Data Results & Data ([facility]) Vital Signs (Past 12 Hours) Vital Signs Temp Pulse Pulse Resp BP Pulse Ox 07/31/21 07:01 36.7 C 69 18 100/64 97 07/31/21 04:25 36.8 C 66 16 107/67 97 07/30/21 23:30 63 07/30/21 23:14 36.3 C L 84 18 122/81 99 Laboratory Results Abnormal lab results 07/30/21 07/30/21 07/30/21 Range/Units 05:59 15:13 16:38 RBC 2.53 L (4.7-6.1) M/uL Hgb 7.9 L (14.0-18.0) g/dL Hct 23.9 L (42-52) % RDW Std Deviation 53.3 H (36.4-46.3) fL RDW Coeff of Leela 15.4 H (11.5-14.5) % Plt Count (130-400) K/uL MPV 10.8 H (7.4-10.4) fL Sodium (136-145) mmol/L Chloride (98-107) mmol/L BUN (7-18) mg/dl Creatinine (0.6-1.4) mg/dl BUN/Creatinine Ratio (10-20) POC Glucose 105 H (70-99) mg/dl Hemoglobin A1c 6.2 H (4.5-5.6) % Calcium (8.5-10.1) mg/dl Crossmatch 07/31/21 07/31/21 07/31/21 Range/Units 00:11 05:41 05:41 RBC 2.15 L (4.7-6.1) M/uL Hgb 6.7 L* (14.0-18.0) g/dL Hct 20.6 L* (42-52) % RDW Std Deviation 55.7 H (36.4-46.3) fL RDW Coeff of Leela 15.9 H (11.5-14.5) % Plt Count 120 L (130-400) K/uL MPV 11.1 H (7.4-10.4) fL Sodium 146 H (136-145) mmol/L Chloride 118 H (98-107) mmol/L BUN 64 H (7-18) mg/dl Creatinine 1.41 H (0.6-1.4) mg/dl BUN/Creatinine Ratio 45.3 H (10-20) POC Glucose 104 H (70-99) mg/dl Hemoglobin A1c (4.5-5.6) % Calcium 8.0 L (8.5-10.1) mg/dl Crossmatch 07/31/21 07/31/21 Range/Units 06:03 07:12 RBC (4.7-6.1) M/uL Hgb (14.0-18.0) g/dL Hct (42-52) % RDW Std Deviation (36.4-46.3) fL RDW Coeff of Leela (11.5-14.5) % Plt Count (130-400) K/uL MPV (7.4-10.4) fL Sodium (136-145) mmol/L Chloride (98-107) mmol/L BUN (7-18) mg/dl Creatinine (0.6-1.4) mg/dl BUN/Creatinine Ratio (10-20) POC Glucose 100 H (70-99) mg/dl Hemoglobin A1c (4.5-5.6) % Calcium (8.5-10.1) mg/dl Crossmatch See Detail (1) Syncope Syncope type: unspecified Qualified Code(s): R55 - Syncope and collapse
[2021-07-31] MEDS: PANTOprazole 40 MG in SYRINGE 0 ML IV SCH ×2 (08:19→20:39)
[2021-07-31] MEDS: GABAPENTIN 800 MG TAB PO SCH ×3 (08:19→20:39)
[2021-07-31] MEDS: TAMSULOSIN HCL 0.4 MG CAP PO SCH (08:20)
[2021-07-31] MEDS: AMIODARONE 200 MG TAB PO SCH (08:20)
[2021-07-31] MEDS: CYANOCOBALAMIN (VITAMIN B-12) 2,500 MCG TAB.SUBL SL SCH (08:20)
[2021-07-31] MEDS: MULTIVITAMIN TAB PO SCH (08:20)
[2021-07-31] MEDS: EZETIMIBE 10 MG TABLET PO SCH (08:20)
[2021-07-31] MEDS: MONTELUKAST SODIUM 10 MG TABLET PO SCH (08:20)
[2021-07-31 08:23] LABS: Estimated Average Glucose 131 mg/dl; Hemoglobin A1C 6.2 % (4.5-5.6)
[2021-07-31] MEDS: ISOSORBIDE MONO EXTENDED REL 30 MG TABCR PO SCH (08:35)
[2021-07-31] MEDS ORDERED: Nursing to Pharmacy Communication SCH (10:15)
[2021-07-31 16:38] LABS: Hematocrit (blood only) 22.5 % (42-52); Hemoglobin 7.4 g/dL (14.0-18.0); Mean Corpuscular Hgb Conc 32.9 g/dL (32-36); Mean Corpuscular Volume 94.1 fL (80-100); Mean Platelet Volume 10.9 fL (7.4-10.4); Platelet Count 128 K/uL (130-400); RDW Coefficient of Variation 16.1 % (11.5-14.5); RDW Standard Deviation 55.6 fL (36.4-46.3); Red Blood Count 2.39 M/uL (4.7-6.1); White Blood Count 6.02 K/uL (4.8-10.8)
[2021-07-31] MEDS: ROSUVASTATIN CALCIUM 20 MG TAB PO SCH (20:39)
[2021-08-01 07:44] LABS: Hematocrit (blood only) 21.1 % (42-52); Hemoglobin 7.1 g/dL (14.0-18.0); Mean Corpuscular Hemoglobin 31.7 pg (25-34); Mean Corpuscular Hgb Conc 33.6 g/dL (32-36); Mean Corpuscular Volume 94.2 fL (80-100); Mean Platelet Volume 10.5 fL (7.4-10.4); Nucleated RBC # (auto) 0.02 K/uL (0-0); Nucleated RBC % (auto) 0.4 %; Platelet Count 111 K/uL (130-400); RDW Coefficient of Variation 16.3 % (11.5-14.5); RDW Standard Deviation 55.7 fL (36.4-46.3); Red Blood Count 2.24 M/uL (4.7-6.1); White Blood Count 4.46 K/uL (4.8-10.8)
[2021-08-01 08:21] LABS: BUN Creatinine Ratio 28.1 (10-20); Calcium 8.2 mg/dl (8.5-10.1); Creatinine Clr Calc Pharmacy 66.2 ml/min; Est GFR (African American) 62.7 ml/min; Est GFR (Non-African American) 54.1 ml/min; Potassium 3.9 mmol/L (3.5-5.1)
[2021-08-01] MEDS: ISOSORBIDE MONO EXTENDED REL 30 MG TABCR PO SCH (08:37)
[2021-08-01] MEDS: GABAPENTIN 800 MG TAB PO SCH ×3 (08:37→21:50)
[2021-08-01] MEDS: PANTOprazole 40 MG in SYRINGE 0 ML IV SCH ×2 (08:37→21:51)
[2021-08-01] MEDS: EZETIMIBE 10 MG TABLET PO SCH (08:38)
[2021-08-01] MEDS: MULTIVITAMIN TAB PO SCH (08:38)
[2021-08-01] MEDS: AMIODARONE 200 MG TAB PO SCH (08:38)
[2021-08-01] MEDS: MONTELUKAST SODIUM 10 MG TABLET PO SCH (08:38)
[2021-08-01] MEDS: CYANOCOBALAMIN (VITAMIN B-12) 2,500 MCG TAB.SUBL SL SCH (08:38)
[2021-08-01] MEDS: TAMSULOSIN HCL 0.4 MG CAP PO SCH (08:39)
[2021-08-01] MEDS: INSULIN ASPART 100 UNITS/ML 3 ML PEN SC SCH ×4 (08:40→22:02)
--- NOTE | 2021-08-01 09:41 | Gastroenterology Progress Note ---
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 Subjective Patient is a 75 yo male with a Dieulafoy lesion found on EGD on 07/30/21. The patient reports one dark stool yesterday (07/31), but denies further bowel movements or bleeding since that time. He denies abdominal pain or discomfort. No physical complaints today. H/H 7.1/21.1. Review of Systems Constitutional: no fever and no chills Respiratory: no cough and no dyspnea Cardiovascular: no chest pain Gastrointestinal: no abdominal pain, no heartburn, no change in bowel habits, no blood in stools and no melena Physical Exam Constitutional: WD/WN, vitals as above Respiratory: normal respiratory effort, lungs clear to auscultation Cardiovascular: RRR, no murmur, no edema Gastrointestinal (Abdomen): normal bowel sounds, soft, nontender, no hepatosplenomegaly Results & Data Results & Data ([facility]) Vital Signs (Past 12 Hours) Vital Signs Temp Pulse Pulse Resp BP Pulse Ox 08/01/21 07:52 36.7 C 73 18 109/68 95 08/01/21 07:41 65 08/01/21 02:39 36.7 C 76 20 119/65 93 07/31/21 23:30 61 07/31/21 22:28 36.8 C 55 L 18 103/56 L 94 PG Care Time/CCT Total # of Minutes Spent Total Time Spent with Patient: Total time spent is greater than 50% in coordination of care (as documented) at patient's floor/unit and/or counseling patient: Coding Level of Care Code 30462 Subseq Hosp Care Lvl 3 Diagnoses 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
--- NOTE | 2021-08-01 09:47 | Cardiology Progress Note ---
Date of Service August 01, 2021 Assessment & Plan (1) Syncope: Plan: Syncope In setting of acute GI bleed No arrhythmias on telemetry Chronic LBBB Amiodarone resumed due to history of afib to maintain NSR while off anticoagulation therapy (2) Cardiomyopathy, ischemic: Plan: LVEF 35% LBBB Recent nuclear stress demonstrating extensive scar without ischemia Outpatient cardiac MRI to be arranged Following with EP to consider BIV AICD (3) GI bleed: Plan: Admission for acute GI bleed. Continue protonix 40 mg BID per GI Monitor Hbg. No signs of recurrent bleeding this morning Plavix on Hold for 5 days Eliquis also discontinued/on hold Case discussed with Dr. Olmstead. No further cardiac testing warranted at this time. Plan: Admission and Anticipated Discharge Date Admission Date: July 29, 2021 Supervising Physician Co-Signing Physician Notes Patient seen and examined assessment and plan as above. No overt bleeding. Hemoglobin still trending low as noted. No arrhythmias on telemetry. Agree with transfusion continue current medical therapies. No change in planned cardiac evaluation as outpatient Subjective Patient resting in bed comfortably. Denies acute complaints. Feeling well. No recurrent dizziness/syncope/near syncope. No CP/SOB. No melena or hematochezia overnight. No hemoptysis. Review of Systems Review of Systems: All systems reviewed & are unremarkable except as noted in HPI & below Physical Exam Constitutional: WD/WN, vitals as above Eyes: PERRL, conjunctivae normal, anicteric sclerae ENMT: external ear and nose normal, oropharynx normal Neck: trachea midline, no thyromegaly Respiratory: normal respiratory effort, lungs clear to auscultation Cardiovascular: Rate/Rhythm: regular rate and regular rhythm Heart Sounds: normal S1, normal S2 and + murmur (Grade 1/6 systolic); no gallop Palpation: normal PMI Vessels: normal carotid upstroke and radial pulses present; no JVD and no carotid bruit Extremities: no edema Gastrointestinal (Abdomen): normal bowel sounds, soft, nontender, no hepatosplenomegaly Musculoskeletal: no cyanosis or clubbing, extremities motor strength 5/5 Skin: no rashes, warm and dry Neurologic: PERRL, EOMI, accommodation nl, no face palsy, no dysarthria Psychiatric: A+Ox3, euthymic affect Results & Data ([facility]) Vital Signs (Past 12 Hours) Vital Signs Temp Pulse Pulse Resp BP Pulse Ox 08/01/21 07:52 36.7 C 73 18 109/68 95 08/01/21 07:41 65 08/01/21 02:39 36.7 C 76 20 119/65 93 07/31/21 23:30 61 07/31/21 22:28 36.8 C 55 L 18 103/56 L 94 Laboratory Results 08/01/21 08/01/21 08/01/21 Range/Units 07:29 07:27 07:27 WBC 4.46 L (4.8-10.8) K/uL RBC 2.24 L (4.7-6.1) M/uL Hgb 7.1 L (14.0-18.0) g/dL Hct 21.1 L (42-52) % MCV 94.2 (80-100) fL MCH 31.7 (25-34) pg MCHC 33.6 (32-36) g/dL RDW Std Deviation 55.7 H (36.4-46.3) fL RDW Coeff of Leela 16.3 H (11.5-14.5) % Plt Count 111 L (130-400) K/uL MPV 10.5 H (7.4-10.4) fL Absolute Nucleated RBC 0.02 H (0-0) K/uL Nucleated RBC % (auto) 0.4 % Sodium 146 H (136-145) mmol/L Potassium 3.9 (3.5-5.1) mmol/L Chloride 114 H (98-107) mmol/L Carbon Dioxide 27 (21-32) mmol/L Anion Gap 5.0 (3-11) BUN 37 H (7-18) mg/dl Creatinine 1.30 (0.6-1.4) mg/dl Est Cr Clr Drug Dosing 66.2 ml/min Est GFR ( Amer) 62.7 ml/min Est GFR (Non-Af Amer) 54.1 ml/min BUN/Creatinine Ratio 28.1 H (10-20) Glucose 100 H (70-99) mg/dl POC Glucose 118 H (70-99) mg/dl Calcium 8.2 L (8.5-10.1) mg/dl Crossmatch 07/31/21 07/31/21 07/31/21 Range/Units 20:30 16:38 16:12 WBC 6.02 (4.8-10.8) K/uL RBC 2.39 L (4.7-6.1) M/uL Hgb 7.4 L (14.0-18.0) g/dL Hct 22.5 L (42-52) % MCV 94.1 (80-100) fL MCH 31.0 (25-34) pg MCHC 32.9 (32-36) g/dL RDW Std Deviation 55.6 H (36.4-46.3) fL RDW Coeff of Leela 16.1 H (11.5-14.5) % Plt Count 128 L (130-400) K/uL MPV 10.9 H (7.4-10.4) fL Absolute Nucleated RBC (0-0) K/uL Nucleated RBC % (auto) % Sodium (136-145) mmol/L Potassium (3.5-5.1) mmol/L Chloride (98-107) mmol/L Carbon Dioxide (21-32) mmol/L Anion Gap (3-11) BUN (7-18) mg/dl Creatinine (0.6-1.4) mg/dl Est Cr Clr Drug Dosing ml/min Est GFR ( Amer) ml/min Est GFR (Non-Af Amer) ml/min BUN/Creatinine Ratio (10-20) Glucose (70-99) mg/dl POC Glucose 84 101 H (70-99) mg/dl Calcium (8.5-10.1) mg/dl Crossmatch 07/31/21 07/31/21 Range/Units 11:31 07:12 WBC (4.8-10.8) K/uL RBC (4.7-6.1) M/uL Hgb (14.0-18.0) g/dL Hct (42-52) % MCV (80-100) fL MCH (25-34) pg MCHC (32-36) g/dL RDW Std Deviation (36.4-46.3) fL RDW Coeff of Leela (11.5-14.5) % Plt Count (130-400) K/uL MPV (7.4-10.4) fL Absolute Nucleated RBC (0-0) K/uL Nucleated RBC % (auto) % Sodium (136-145) mmol/L Potassium (3.5-5.1) mmol/L Chloride (98-107) mmol/L Carbon Dioxide (21-32) mmol/L Anion Gap (3-11) BUN (7-18) mg/dl Creatinine (0.6-1.4) mg/dl Est Cr Clr Drug Dosing ml/min Est GFR ( Amer) ml/min Est GFR (Non-Af Amer) ml/min BUN/Creatinine Ratio (10-20) Glucose (70-99) mg/dl POC Glucose 79 (70-99) mg/dl Calcium (8.5-10.1) mg/dl Crossmatch See Detail Diagnostic Findings Telemetry reviewed - NSR with PVC's. No afib or bradyarrhythmias (1) Syncope Syncope type: unspecified Qualified Code(s): R55 - Syncope and collapse
[2021-08-01] MEDS ORDERED: SODIUM CHLORIDE 0.9% 250 ML IV PRN (09:49)
--- NOTE | 2021-08-01 09:55 | Hospitalist Progress Note ---
Date of Service August 01, 2021 Assessment & Plan (1) Acute anemia: (2) GI bleed: (3) Syncope: Plan: Syncopal episode. Due to acute blood loss anemia due to upper GI bleed. Outpatient review of CBC showed hemoglobin ranges of 12-14. Hemoglobin was 10 on admission and dropped to 7.6 yesterday. Status post EGD which showed bleeding from the LeFort lesion status post hemostasis Got 1 PRBC yesterday Hb is 7.1 today Will give one PRBC today and monitor Hb later Blood pressure stable. GI on board Advance diet as tolerated Continue IV PPI BID (4) Cardiomyopathy, ischemic: Plan: CAD History CABG x2 FOLEY to LAD and vein graft to OM, history of PCI to LAD/RCA 2018 Patient was seen by Dr. Yung 07/28/2021 for consideration of BiV ICD. History echo 06/19/2021: EF: 35-39% History of cardiac cath 03/2019: LAD: Ostial occluded, CX: Small moderate disease, OM 2: Occluded fills with right to left collaterals, RCA: Moderate disease, FOLEY-LAD pain, SVG-CX: Known occlusion Nuclear stress: 04/28/2021: No active ischemia, infarct inferior lateral myocardium Troponin trend was negative Patient started back on amiodarone per cardiology recommendation Plavix on hold as above (5) Elevated lactic acid level: Plan: Lactate: 3.1 on admission Low suspicion for infection based on presentation and findings. Elevated lactic likely due to hypotension, resolved. Last was 1.4 (6) Hyperkalemia: Plan: K: 5.4 on admission Resolved (7) Paroxysmal A-fib: Plan: Currently in sinus rhythm Patient no longer on amiodarone or Eliquis (8) CKD (chronic kidney disease), stage III: Plan: Cr: 1.7 on admission. Baseline 1.2-1.6 Monitor renal functions, avoid nephrotoxic agents when possible Creatinine is 1.3 this morning (9) Diabetes mellitus, type 2: Plan: A1c: 6.3 on 04/05/2021 Hold Metformin NovoLog sliding scale per protocol (10) CVA (cerebral vascular accident): Plan: History of chronic high-grade stenosis bilateral MCA (11) HTN (hypertension): Plan: Was taken off of losartan secondary to hypotension Patient initially hypotensive in ER Blood pressure stable Monitor (12) Chronic bundle branch block: Plan: Chronic LBBB DVT Prophylaxis -SCD PT/OT evaluation Patient's -Piper would like contacted with updates as she reports patient has hard time retaining information. Her home phone number is [phone]. Her cell phone number is [phone] Admission and Anticipated Discharge Date Admission Date: July 29, 2021 Subjective 75-year-old man with history of CAD status post CABG x2 FOLEY to LAD vein graft to OM, PCI to LAD and RCA in 2019, ischemic cardiomyopathy with EF of 35%, nonsustained SVT, CVA/TIA, proximal A. fib, DM type II, hypertension, hyperlipidemia, bilateral symptomatic carotid artery stenosis, chronic high- grade stenosis of bilateral MCA who came in yesterday for syncopal episode that happened yesterday morning. Was being recently evaluated by EP for possible biventricular ICD. Found to have acute anemia due to blood loss. Had EGD which showed Gastric bleeding from Dieulafoy lesion status post epi injection and coagulation for hemostasis. Patient seen and examined today. 2 BM recorded by RN yesterday, one brown and one black Denies any dizziness, palpitation Denies any chest pain, shortness of breath, cough Denies any nausea, vomiting, abdominal pain or diarrhea. Review of Systems Review of Systems: Other review of systems negative except as above Physical Exam Constitutional: + well hydrated and + obese; no acute distress Eyes: PERRL, conjunctivae normal, anicteric sclerae ENMT: external ear and nose normal, oropharynx normal Respiratory: normal respiratory effort, lungs clear to auscultation Cardiovascular: Rate/Rhythm: regular rate and regular rhythm S1 S2 Gastrointestinal (Abdomen): normal bowel sounds, soft, nontender, no hepatosplenomegaly Musculoskeletal: no cyanosis or clubbing, extremities motor strength 5/5 Neurologic: PERRL, EOMI, accommodation nl, no face palsy, no dysarthria Psychiatric: A+Ox3, euthymic affect Results & Data Results & Data ([facility]) Vital Signs (Past 12 Hours) Vital Signs Temp Pulse Pulse Resp BP Pulse Ox 08/01/21 07:52 36.7 C 73 18 109/68 95 08/01/21 07:41 65 08/01/21 02:39 36.7 C 76 20 119/65 93 07/31/21 23:30 61 07/31/21 22:28 36.8 C 55 L 18 103/56 L 94 Laboratory Results Abnormal lab results 07/31/21 07/31/21 07/31/21 Range/Units 07:12 16:12 16:38 WBC (4.8-10.8) K/uL RBC 2.39 L (4.7-6.1) M/uL Hgb 7.4 L (14.0-18.0) g/dL Hct 22.5 L (42-52) % RDW Std Deviation 55.6 H (36.4-46.3) fL RDW Coeff of Leela 16.1 H (11.5-14.5) % Plt Count 128 L (130-400) K/uL MPV 10.9 H (7.4-10.4) fL Absolute Nucleated RBC (0-0) K/uL Sodium (136-145) mmol/L Chloride (98-107) mmol/L BUN (7-18) mg/dl BUN/Creatinine Ratio (10-20) Glucose (70-99) mg/dl POC Glucose 101 H (70-99) mg/dl Calcium (8.5-10.1) mg/dl Crossmatch See Detail 08/01/21 08/01/21 08/01/21 Range/Units 07:27 07:27 07:29 WBC 4.46 L (4.8-10.8) K/uL RBC 2.24 L (4.7-6.1) M/uL Hgb 7.1 L (14.0-18.0) g/dL Hct 21.1 L (42-52) % RDW Std Deviation 55.7 H (36.4-46.3) fL RDW Coeff of Leela 16.3 H (11.5-14.5) % Plt Count 111 L (130-400) K/uL MPV 10.5 H (7.4-10.4) fL Absolute Nucleated RBC 0.02 H (0-0) K/uL Sodium 146 H (136-145) mmol/L Chloride 114 H (98-107) mmol/L BUN 37 H (7-18) mg/dl BUN/Creatinine Ratio 28.1 H (10-20) Glucose 100 H (70-99) mg/dl POC Glucose 118 H (70-99) mg/dl Calcium 8.2 L (8.5-10.1) mg/dl Crossmatch (1) Syncope Syncope type: unspecified Qualified Code(s): R55 - Syncope and collapse
[2021-08-01 16:23] LABS: Hematocrit (blood only) 22.7 % (42-52); Hemoglobin 7.3 g/dL (14.0-18.0); Mean Corpuscular Hemoglobin 30.7 pg (25-34); Mean Corpuscular Hgb Conc 32.2 g/dL (32-36); Mean Corpuscular Volume 95.4 fL (80-100); Mean Platelet Volume 9.9 fL (7.4-10.4); Platelet Count 108 K/uL (130-400); RDW Coefficient of Variation 15.9 % (11.5-14.5); RDW Standard Deviation 54.2 fL (36.4-46.3); Red Blood Count 2.38 M/uL (4.7-6.1); White Blood Count 4.02 K/uL (4.8-10.8)
--- NOTE | 2021-08-01 18:26 | Electrocardiogram Report ---
Test Reason : Blood Pressure : / mmHG Vent. Rate : 065 BPM Atrial Rate : 065 BPM P-R Int : 180 ms QRS Dur : 162 ms QT Int : 502 ms P-R-T Axes : 088 031 158 degrees QTc Int : 522 ms Sinus rhythm with occasional Premature ventricular complexes Left bundle branch block Abnormal ECG When compared with ECG of 30-JUL-2021 05:31, No significant change was found Confirmed by Steven Hensley ([id number]) on 08/01/2021 6:26:10 PM Referred By: REFERRED SELF Confirmed By:Juan Hensley
[2021-08-01] MEDS: ROSUVASTATIN CALCIUM 20 MG TAB PO SCH (21:50)
[2021-08-02 06:05] LABS: Hematocrit (blood only) 22.7 % (42-52); Hemoglobin 7.3 g/dL (14.0-18.0); Mean Corpuscular Hemoglobin 30.5 pg (25-34); Mean Corpuscular Hgb Conc 32.2 g/dL (32-36); Mean Platelet Volume 11.2 fL (7.4-10.4); Platelet Count 105 K/uL (130-400); RDW Coefficient of Variation 15.7 % (11.5-14.5); RDW Standard Deviation 53.6 fL (36.4-46.3); Red Blood Count 2.39 M/uL (4.7-6.1)
[2021-08-02 06:43] LABS: BUN Creatinine Ratio 16.3 (10-20); Calcium 8.2 mg/dl (8.5-10.1); Creatinine Clr Calc Pharmacy 60.1 ml/min; Est GFR (Non-African American) 47.4 ml/min
[2021-08-02] MEDS ORDERED: SODIUM CHLORIDE 0.9% 250 ML IV PRN (08:44)
[2021-08-02] MEDS: AMIODARONE 200 MG TAB PO SCH (08:59)
[2021-08-02] MEDS: MULTIVITAMIN TAB PO SCH (08:59)
[2021-08-02] MEDS: GABAPENTIN 800 MG TAB PO SCH ×3 (08:59→20:53)
[2021-08-02] MEDS: EZETIMIBE 10 MG TABLET PO SCH (08:59)
[2021-08-02] MEDS: TAMSULOSIN HCL 0.4 MG CAP PO SCH (08:59)
[2021-08-02] MEDS: PANTOprazole 40 MG in SYRINGE 0 ML IV SCH (08:59)
[2021-08-02] MEDS: ISOSORBIDE MONO EXTENDED REL 30 MG TABCR PO SCH (08:59)
[2021-08-02] MEDS: CYANOCOBALAMIN (VITAMIN B-12) 2,500 MCG TAB.SUBL SL SCH (08:59)
[2021-08-02] MEDS: MONTELUKAST SODIUM 10 MG TABLET PO SCH (09:00)
[2021-08-02] MEDS: INSULIN ASPART 100 UNITS/ML 3 ML PEN SC SCH ×4 (09:00→21:37)
--- NOTE | 2021-08-02 10:26 | Cardiology Progress Note ---
Date of Service August 02, 2021 Assessment & Plan (1) Syncope: Plan: Syncope In setting of acute GI bleed No arrhythmias on telemetry Chronic LBBB Amiodarone resumed due to history of afib to maintain NSR while off anticoagulation therapy (2) Cardiomyopathy, ischemic: Plan: LVEF 35% LBBB Recent nuclear stress demonstrating extensive scar without ischemia Outpatient cardiac MRI to be arranged Following with EP to consider BIV AICD (3) GI bleed: Plan: Admission for acute GI bleed. Continue protonix 40 mg BID per GI Monitor Hbg, remains low at 7.3 despite 2 units PRBC's Currently receiving 3rd unit Episode of melena this morning (08/02) Consider repeat scope? Await GI eval Eliquis and plavix on hold Discussed updates with via telephone. She is requesting all providers call with updates as Tulio does not recall information. Case discussed with Dr. Olmstead. Will follow Plan: Admission and Anticipated Discharge Date Admission Date: July 29, 2021 Supervising Physician Co-Signing Physician Notes Patient was seen and examined, chart and medications reviewed. Full assessment as above. Patient has tolerated IV transfusions without signs or symptoms of acute edema or volume overload. Encourage patient to report any symptoms of dyspnea GI following. Subjective Patient ambulating in hallways without complaints. No chest pain or SOB. No recurrent dizziness or lightheadedness. No syncope. No orthopnea, PND or edema. No fever or cough. Receiving additional 1 unit PRBCs currently. Had an episode of melena this morning. No abdominal pain Review of Systems Review of Systems: All systems reviewed & are unremarkable except as noted in HPI & below Physical Exam Constitutional: WD/WN, vitals as above Eyes: PERRL, conjunctivae normal, anicteric sclerae ENMT: external ear and nose normal, oropharynx normal Neck: trachea midline, no thyromegaly Respiratory: normal respiratory effort, lungs clear to auscultation Cardiovascular: Rate/Rhythm: regular rate and regular rhythm Heart Sounds: normal S1, normal S2 and + murmur (Grade 1/6 systolic); no gallop Palpation: normal PMI Vessels: normal carotid upstroke and radial pulses present; no JVD and no carotid bruit Extremities: no edema Gastrointestinal (Abdomen): normal bowel sounds, soft, nontender, no hepatosplenomegaly Musculoskeletal: no cyanosis or clubbing, extremities motor strength 5/5 Skin: no rashes, warm and dry Neurologic: PERRL, EOMI, accommodation nl, no face palsy, no dysarthria Psychiatric: A+Ox3, euthymic affect Results & Data ([facility]) Vital Signs (Past 12 Hours) Vital Signs Temp Pulse Pulse Resp BP BP Pulse Ox 08/02/21 10:00 36.9 C 62 16 115/59 L 96 08/02/21 09:30 37 C 63 16 113/61 98 08/02/21 09:15 37 C 61 18 107/59 L 96 08/02/21 09:03 37.4 C 65 18 125/54 L 97 08/02/21 07:38 37.0 C 52 L 18 106/61 96 08/02/21 07:27 56 L 08/02/21 03:27 36.8 C 60 120/69 95 08/01/21 23:30 59 L Laboratory Results 08/02/21 08/02/21 08/02/21 Range/Units 07:55 05:47 05:47 WBC 3.90 L (4.8-10.8) K/uL RBC 2.39 L (4.7-6.1) M/uL Hgb 7.3 L (14.0-18.0) g/dL Hct 22.7 L (42-52) % MCV 95.0 (80-100) fL MCH 30.5 (25-34) pg MCHC 32.2 (32-36) g/dL RDW Std Deviation 53.6 H (36.4-46.3) fL RDW Coeff of Leela 15.7 H (11.5-14.5) % Plt Count 105 L (130-400) K/uL MPV 11.2 H (7.4-10.4) fL Sodium 144 (136-145) mmol/L Potassium 4.0 (3.5-5.1) mmol/L Chloride 111 H (98-107) mmol/L Carbon Dioxide 28 (21-32) mmol/L Anion Gap 4.0 (3-11) BUN 24 H (7-18) mg/dl Creatinine 1.45 H (0.6-1.4) mg/dl Est Cr Clr Drug Dosing 60.1 ml/min Est GFR ( Amer) 55.0 ml/min Est GFR (Non-Af Amer) 47.4 ml/min BUN/Creatinine Ratio 16.3 (10-20) Glucose 106 H (70-99) mg/dl POC Glucose 119 H (70-99) mg/dl Calcium 8.2 L (8.5-10.1) mg/dl Blood Type Antibody Screen Crossmatch 08/01/21 08/01/21 08/01/21 Range/Units 19:45 16:52 16:12 WBC 4.02 L (4.8-10.8) K/uL RBC 2.38 L (4.7-6.1) M/uL Hgb 7.3 L (14.0-18.0) g/dL Hct 22.7 L (42-52) % MCV 95.4 (80-100) fL MCH 30.7 (25-34) pg MCHC 32.2 (32-36) g/dL RDW Std Deviation 54.2 H (36.4-46.3) fL RDW Coeff of Leela 15.9 H (11.5-14.5) % Plt Count 108 L (130-400) K/uL MPV 9.9 (7.4-10.4) fL Sodium (136-145) mmol/L Potassium (3.5-5.1) mmol/L Chloride (98-107) mmol/L Carbon Dioxide (21-32) mmol/L Anion Gap (3-11) BUN (7-18) mg/dl Creatinine (0.6-1.4) mg/dl Est Cr Clr Drug Dosing ml/min Est GFR ( Amer) ml/min Est GFR (Non-Af Amer) ml/min BUN/Creatinine Ratio (10-20) Glucose (70-99) mg/dl POC Glucose 100 H 104 H (70-99) mg/dl Calcium (8.5-10.1) mg/dl Blood Type Antibody Screen Crossmatch 08/01/21 07/31/21 Range/Units 12:00 07:12 WBC (4.8-10.8) K/uL RBC (4.7-6.1) M/uL Hgb (14.0-18.0) g/dL Hct (42-52) % MCV (80-100) fL MCH (25-34) pg MCHC (32-36) g/dL RDW Std Deviation (36.4-46.3) fL RDW Coeff of Leela (11.5-14.5) % Plt Count (130-400) K/uL MPV (7.4-10.4) fL Sodium (136-145) mmol/L Potassium (3.5-5.1) mmol/L Chloride (98-107) mmol/L Carbon Dioxide (21-32) mmol/L Anion Gap (3-11) BUN (7-18) mg/dl Creatinine (0.6-1.4) mg/dl Est Cr Clr Drug Dosing ml/min Est GFR ( Amer) ml/min Est GFR (Non-Af Amer) ml/min BUN/Creatinine Ratio (10-20) Glucose (70-99) mg/dl POC Glucose 95 (70-99) mg/dl Calcium (8.5-10.1) mg/dl Blood Type A Positive Antibody Screen NEGATIVE Crossmatch See Detail Diagnostic Findings Telemetry reviewed - NSR with conduction delay. No arrhythmias Medications Administered Current Inpatient Medications Acetaminophen (Acetaminophen 325 Mg Tab) 650 mg PO Q4H PRN PRN Reason: Pain or Fever Stop: 08/28/21 17:14 Amiodarone HCl (Amiodarone 200 Mg Tab) 200 mg PO QAM GITA Stop: 08/29/21 13:29 Last Admin: 08/02/21 08:59 Dose: 200 mg Documented by: Clopidogrel Bisulfate (Clopidogrel Bisulfate 75 Mg Tab) 75 mg PO DAILY GITA Stop: 08/29/21 08:59 Last Admin: 07/30/21 08:22 Dose: Not Given Documented by: Cyanocobalamin (Cyanocobalamin (Vitamin B-12) 2,500 Mcg Tab.Subl) 5,000 mcg SL DAILY GITA Stop: 08/29/21 08:59 Last Admin: 08/02/21 08:59 Dose: 5,000 mcg Documented by: Dextrose (Dextrose 50% 50 Ml Syringe) 25 - 50 ml IV UD PRN; Protocol PRN Reason: Hypoglycemia Protocol Stop: 08/28/21 17:14 Ezetimibe (Ezetimibe 10 Mg Tablet) 10 mg PO DAILY GITA Stop: 08/29/21 08:59 Last Admin: 08/02/21 08:59 Dose: 10 mg Documented by: Gabapentin (Gabapentin 800 Mg Tab) 800 mg PO TID GITA Stop: 08/28/21 20:59 Last Admin: 08/02/21 08:59 Dose: 800 mg Documented by: Glucagon (Glucagon For Inj 1 Mg Vial) 1 mg SQ UD PRN; Protocol PRN Reason: Hypoglycemia Protocol Stop: 08/28/21 17:14 Glucose (Glucose 10 Tabs/Tube) 4 - 8 tabs PO UD PRN; Protocol PRN Reason: Hypoglycemia Protocol Stop: 08/28/21 17:14 Glucose (Glucose 40% Gel 15 Gm Tube) 15 - 30 gm PO UD PRN; Protocol PRN Reason: Hypoglycemia Protocol Stop: 08/28/21 17:14 Pantoprazole Sodium 40 mg/ (Syringe) 10 mls @ 5 mls/min IV BID GITA Stop: 08/29/21 08:59 Last Admin: 08/02/21 08:59 Dose: 5 mls/min Documented by: Sodium Chloride (Nss) 250 mls @ 15 mls/hr IV .[id number] PRN PRN Reason: For Transfusion Stop: 08/02/21 18:45 Insulin Aspart (Insulin Aspart 100 Units/Ml 3 Ml Pen) 0 units SC ACHS GITA Stop: 08/30/21 11:29 Last Admin: 08/02/21 09:00 Dose: 5 units Documented by: Isosorbide Mononitrate (Isosorbide [place] Extended Rel 30 Mg Tabcr) 30 mg PO QAM GITA Stop: 08/29/21 08:59 Last Admin: 08/02/21 08:59 Dose: 30 mg Documented by: Miscellaneous (Carbohydrates For Hypoglycemia ) 15 - 30 gm PO UD PRN PRN Reason: Hypoglycemia Protocol Stop: 08/28/21 17:14 Montelukast Sodium (Montelukast Sodium 10 Mg Tablet) 10 mg PO DAILY GITA Stop: 08/29/21 08:59 Last Admin: 08/02/21 09:00 Dose: 10 mg Documented by: Multivitamins (Multivitamin Tab) 1 tab PO DAILY GITA Stop: 08/29/21 08:59 Last Admin: 08/02/21 08:59 Dose: 1 tab Documented by: Polyethylene Glycol (Polyethylene (Miralax) 17 Gm Pack) 17 gm PO DAILY PRN PRN Reason: Constipation Stop: 08/28/21 17:14 Rosuvastatin Calcium (Rosuvastatin Calcium 20 Mg Tab) 40 mg PO HS GITA Stop: 08/28/21 20:59 Last Admin: 08/01/21 21:50 Dose: 40 mg Documented by: Tamsulosin HCl (Tamsulosin Hcl 0.4 Mg Cap) 0.4 mg PO DAILY [facility] Stop: 08/29/21 08:59 Last Admin: 08/02/21 08:59 Dose: 0.4 mg Documented by: (1) Syncope Syncope type: unspecified Qualified Code(s): R55 - Syncope and collapse
--- NOTE | 2021-08-02 11:19 | Gastroenterology Progress Note ---
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 Continue current therapy and supportive care NPO after midnight with possible EGD in AM for further evaluation of prior bleeding site. Subjective Patient is a 75 yo male with a Dieulafoy lesion. He feels well--denies any physical pain or symptoms but does note that he had a small, dark stool this morning. Since his EGD on 07/30/21, he has received 2 units of PRBCs and his hemoglobin has not increased. His H/H at present is 7.3/22.7. He is on Protonix IV 40 mg BID at present. He is receiving a 3rd unit of PRBCs today. He ate a tray of breakfast this morning. Review of Systems Constitutional: no fever and no chills Respiratory: no cough and no dyspnea Cardiovascular: no chest pain Gastrointestinal: + melena; no abdominal pain, no belching, no heartburn, no nausea, no vomiting, no coffee ground emesis and no hematemesis Physical Exam Constitutional: WD/WN, vitals as above Respiratory: normal respiratory effort, lungs clear to auscultation Cardiovascular: Rate/Rhythm: regular rate and regular rhythm Gastrointestinal (Abdomen): normal bowel sounds, soft, nontender, no hepatosplenomegaly Results & Data Results & Data ([facility]) Vital Signs (Past 12 Hours) Vital Signs Temp Pulse Pulse Resp BP BP Pulse Ox 08/02/21 10:30 36.8 C 61 18 131/66 87 L 08/02/21 10:00 36.9 C 62 16 115/59 L 96 08/02/21 09:30 37 C 63 16 113/61 98 08/02/21 09:15 37 C 61 18 107/59 L 96 08/02/21 09:03 37.4 C 65 18 125/54 L 97 08/02/21 07:38 37.0 C 52 L 18 106/61 96 08/02/21 07:27 56 L 08/02/21 03:27 36.8 C 60 120/69 95 08/01/21 23:30 59 L PG Care Time/CCT Total # of Minutes Spent Total Time Spent with Patient: Total time spent is greater than 50% in coordination of care (as documented) at patient's floor/unit and/or counseling patient: Coding Level of Care Code 33255 Subseq Hosp Care Lvl 3 Diagnoses 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
[2021-08-02] MEDS: PANTOprazole 40 MG in DEXTROSE 5% 100 ML IV SCH ×3 (12:00→22:30)
--- NOTE | 2021-08-02 16:06 | Hospitalist Progress Note ---
Date of Service August 02, 2021 Assessment & Plan (1) Acute anemia: (2) GI bleed: (3) Syncope: Plan: Syncopal episode. Due to acute blood loss anemia/upper GI bleed. -CT ABD:No acute intracranial hemorrhage, no midline shift or space occupying lesions. Stable encephalomalacia within the right occipital lobe. Stable lacunar infarct within left basal ganglia. No acute depressed skull fractures. 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 Dieulafoy lesion of stomach. Normal duodena l bulb and second portion of the duodenum. No specimens collected. Hb: 7.3 today Appreciate GI Input Continue PPI drip Plavix on hold Avoid NSAIDs Plan for repeat EGD tomorrow Monitor H&H (4) Cardiomyopathy, ischemic: Plan: CAD H/O CABG x2 FOLEY to LAD and vein graft to OM, history of PCI to LAD/RCA 2018 Patient was seen by Dr. Yung 07/28/2021 for consideration of BiV ICD. ECHO 06/19/2021: EF: 35-39% H/O Cardiac cath 03/2019: LAD: Ostial occluded, CX: Small moderate disease, OM 2: Occluded fills with right to left collaterals, RCA: Moderate disease, FOLEY-LAD pain, SVG-CX: Known occlusion Nuclear stress: 04/28/2021: No active ischemia, infarct inferior lateral myocardium Troponin trend was negative Plavix on hold secondary to GI bleed Continue statin, Isosorbide Appreciate cardiology input Likely will need BIV AICD as outpatient (5) Elevated lactic acid level: Plan: Lactate: 3.1 on admission Low suspicion for infection based on presentation and findings. Elevated lactic likely due to hypotension, resolved. (6) Hyperkalemia: Plan: K: 5.4 on admission Resolved (7) Paroxysmal A-fib: Plan: Currently in sinus rhythm Restarted amiodarone Eliquis on hold due to GI bleed (8) CKD (chronic kidney disease), stage III: Plan: Cr: 1.7 on admission. Baseline 1.2-1.6 Monitor renal function Avoid nephrotoxic agents when possible (9) Diabetes mellitus, type 2: Plan: A1c: 6.3 on 04/05/2021 Hold Metformin NovoLog sliding scale per protocol Monitor BGs (10) CVA (cerebral vascular accident): Plan: History of chronic high-grade stenosis bilateral MCA Continue Statin Plavix on hold (11) HTN (hypertension): Plan: Was taken off of losartan secondary to hypotension Patient initially hypotensive in ER Blood pressure stable Monitor (12) Chronic bundle branch block: Plan: Chronic LBBB DVT Px -SCD Re: GI Bleed Code Status Full Code Admission and Anticipated Discharge Date Admission Date: July 29, 2021 Subjective Patient is seen and examined at bedside Had small black-colored stool this morning Hemoglobin same as yesterday despite giving blood transfusion Denies chest pain, dyspnea, dizziness, nausea, abdominal pain Discussed with cardiology, and GI today Review of Systems Review of Systems: All systems reviewed & are unremarkable except as noted in Subjective Physical Exam Physical Exam: Physical Exam: Vitals signs as noted above General Appearance:Moderately built and nourished, no apparent distress Head: normocephalic, Atraumatic Eyes: normal inspection, EOMI Neck: supple, Trachea midline Respiratory/Chest: Normal breath sounds, CTA, No accessory muscle use Cardiovascular: S1, S2, + murmur Abdomen/GI:Soft, Non tender, Bowel sounds present Extremities/Musculoskeletal:normal inspection, no edema Neurologic/Psych:AAOX3, grossly no focal neurological deficits Skin: normal color, warm Results & Data Results & Data ([facility]) Vital Signs (Past 12 Hours) Vital Signs Temp Pulse Pulse Resp BP BP Pulse Ox 08/02/21 14:57 60 08/02/21 11:45 36.8 C 54 L 16 118/65 96 08/02/21 10:30 36.8 C 61 18 131/66 87 L 08/02/21 10:00 36.9 C 62 16 115/59 L 96 08/02/21 09:30 37 C 63 16 113/61 98 08/02/21 09:15 37 C 61 18 107/59 L 96 08/02/21 09:03 37.4 C 65 18 125/54 L 97 08/02/21 07:38 37.0 C 52 L 18 106/61 96 08/02/21 07:27 56 L Laboratory Results Short CBC 08/01/21 08/02/21 Range/Units 16:12 05:47 WBC 4.02 L 3.90 L (4.8-10.8) K/uL Hgb 7.3 L 7.3 L (14.0-18.0) g/dL Hct 22.7 L 22.7 L (42-52) % Plt Count 108 L 105 L (130-400) K/uL [facility] 08/02/21 05:47 Sodium 144 Potassium 4.0 Chloride 111 H Carbon Dioxide 28 BUN 24 H Creatinine 1.45 H Glucose 106 H Calcium 8.2 L (1) Syncope Syncope type: unspecified Qualified Code(s): R55 - Syncope and collapse
[2021-08-02] MEDS: ROSUVASTATIN CALCIUM 20 MG TAB PO SCH (20:53)
[2021-08-02 20:57] LABS: Hemoglobin 8.5 g/dL (14.0-18.0)
[2021-08-03] MEDS: PANTOprazole 40 MG in DEXTROSE 5% 100 ML IV SCH ×3 (03:02→13:19)
[2021-08-03 06:37] LABS: Hematocrit (blood only) 25.2 % (42-52); Hemoglobin 8.4 g/dL (14.0-18.0); Mean Corpuscular Hemoglobin 30.9 pg (25-34); Mean Corpuscular Hgb Conc 33.3 g/dL (32-36); Mean Corpuscular Volume 92.6 fL (80-100); Mean Platelet Volume 11.5 fL (7.4-10.4); Platelet Count 127 K/uL (130-400); RDW Coefficient of Variation 15.7 % (11.5-14.5); RDW Standard Deviation 51.2 fL (36.4-46.3); Red Blood Count 2.72 M/uL (4.7-6.1); White Blood Count 4.06 K/uL (4.8-10.8)
[2021-08-03 07:15] LABS: BUN Creatinine Ratio 13.9 (10-20); Calcium 8.2 mg/dl (8.5-10.1); Creatinine Clr Calc Pharmacy 65.8 ml/min; Est GFR (African American) 62.2 ml/min; Est GFR (Non-African American) 53.6 ml/min; Magnesium 1.9 mg/dl (1.8-2.4); Potassium 3.6 mmol/L (3.5-5.1)
[2021-08-03 07:22] LABS: Ferritin 72.3 ng/ml (8-388)
[2021-08-03] MEDS: INSULIN ASPART 100 UNITS/ML 3 ML PEN SC SCH ×4 (08:27→20:50)
[2021-08-03] MEDS: AMIODARONE 200 MG TAB PO SCH (08:28)
[2021-08-03] MEDS: CYANOCOBALAMIN (VITAMIN B-12) 2,500 MCG TAB.SUBL SL SCH (08:29)
[2021-08-03] MEDS: GABAPENTIN 800 MG TAB PO SCH ×3 (08:30→20:46)
[2021-08-03] MEDS: EZETIMIBE 10 MG TABLET PO SCH (08:30)
[2021-08-03] MEDS: ISOSORBIDE MONO EXTENDED REL 30 MG TABCR PO SCH (08:30)
[2021-08-03] MEDS: MONTELUKAST SODIUM 10 MG TABLET PO SCH (08:30)
[2021-08-03] MEDS: TAMSULOSIN HCL 0.4 MG CAP PO SCH (08:31)
[2021-08-03] MEDS: MULTIVITAMIN TAB PO SCH (08:31)
--- NOTE | 2021-08-03 09:24 | Cardiology Progress Note ---
Date of Service August 03, 2021 Assessment & Plan (1) Syncope: Plan: Syncope In setting of acute GI bleed No arrhythmias on telemetry Chronic LBBB Amiodarone resumed due to history of afib to maintain NSR while off anticoagulation therapy (2) Cardiomyopathy, ischemic: Plan: LVEF 35% LBBB Recent nuclear stress demonstrating extensive scar without ischemia Outpatient cardiac MRI to be arranged Following with EP to consider BIV AICD (3) GI bleed: Plan: Admission for acute GI bleed. Continue protonix 40 mg BID per GI Monitor Hbg, Increased to 8.4 today after 3rd unit PRBC's Await GI evaluation, possible EGD today. Patient remains NPO Eliquis and plavix on hold Case discussed with Dr. Olmstead. Will follow Plan: Admission and Anticipated Discharge Date Admission Date: July 29, 2021 Supervising Physician Co-Signing Physician Notes Plan and assessment as well outlined above with patient seen and examined. Await EGD results. Subjective Patient resting comfortably in bed. No additional BM since yesterday morning. Hbg improving this morning after 3rd unit PRBC's to 8.4. He is NPO this morning for possible repeat EGD. He denies chest pain or SOB. No recurrent dizziness or lightheadedness, no syncope or near syncope. No fever, cough, chills. No orthopnea, PND or edema. Review of Systems Review of Systems: All systems reviewed & are unremarkable except as noted in HPI & below Physical Exam Constitutional: WD/WN, vitals as above Eyes: PERRL, conjunctivae normal, anicteric sclerae ENMT: external ear and nose normal, oropharynx normal Neck: trachea midline, no thyromegaly Respiratory: normal respiratory effort, lungs clear to auscultation Cardiovascular: Rate/Rhythm: regular rate and regular rhythm Heart Sounds: normal S1, normal S2 and + murmur (Grade 1/6 systolic); no gallop Palpation: normal PMI Vessels: normal carotid upstroke and radial pulses present; no JVD and no carotid bruit Extremities: no edema Gastrointestinal (Abdomen): normal bowel sounds, soft, nontender, no hepatosplenomegaly Musculoskeletal: no cyanosis or clubbing, extremities motor strength 5/5 Skin: no rashes, warm and dry Neurologic: PERRL, EOMI, accommodation nl, no face palsy, no dysarthria Psychiatric: A+Ox3, euthymic affect Results & Data ([facility]) Vital Signs (Past 12 Hours) Vital Signs Temp Pulse Pulse Resp BP Pulse Ox 08/03/21 07:21 50 L 08/03/21 06:43 36.4 C L 52 L 18 110/60 96 08/03/21 03:07 36.6 C 61 18 116/53 L 94 08/02/21 23:16 36.7 C 62 18 138/72 92 08/02/21 23:00 58 L Laboratory Results 08/03/21 08/03/21 08/03/21 Range/Units 07:26 06:02 06:02 WBC 4.06 L (4.8-10.8) K/uL RBC 2.72 L (4.7-6.1) M/uL Hgb 8.4 L (14.0-18.0) g/dL Hct 25.2 L (42-52) % MCV 92.6 (80-100) fL MCH 30.9 (25-34) pg MCHC 33.3 (32-36) g/dL RDW Std Deviation 51.2 H (36.4-46.3) fL RDW Coeff of Leela 15.7 H (11.5-14.5) % Plt Count 127 L (130-400) K/uL MPV 11.5 H (7.4-10.4) fL Sodium 143 (136-145) mmol/L Potassium 3.6 (3.5-5.1) mmol/L Chloride 112 H (98-107) mmol/L Carbon Dioxide 29 (21-32) mmol/L Anion Gap 2.0 L (3-11) BUN 18 (7-18) mg/dl Creatinine 1.31 (0.6-1.4) mg/dl Est Cr Clr Drug Dosing 65.8 ml/min Est GFR ( Amer) 62.2 ml/min Est GFR (Non-Af Amer) 53.6 ml/min BUN/Creatinine Ratio 13.9 (10-20) Glucose 100 H (70-99) mg/dl POC Glucose 104 H (70-99) mg/dl Calcium 8.2 L (8.5-10.1) mg/dl Magnesium 1.9 (1.8-2.4) mg/dl Iron 32 L (35-175) mcg/dl TIBC 249 L (250-450) mcg/dl Transferrin 201 (200-360) mg/dl Transferrin % Sat 11 L (20-50) % Ferritin 72.3 (8-388) ng/ml Crossmatch 08/02/21 08/02/21 08/02/21 Range/Units 20:57 20:21 16:43 WBC (4.8-10.8) K/uL RBC (4.7-6.1) M/uL Hgb 8.5 L (14.0-18.0) g/dL Hct 26.0 L (42-52) % MCV (80-100) fL MCH (25-34) pg MCHC (32-36) g/dL RDW Std Deviation (36.4-46.3) fL RDW Coeff of Leela (11.5-14.5) % Plt Count (130-400) K/uL MPV (7.4-10.4) fL Sodium (136-145) mmol/L Potassium (3.5-5.1) mmol/L Chloride (98-107) mmol/L Carbon Dioxide (21-32) mmol/L Anion Gap (3-11) BUN (7-18) mg/dl Creatinine (0.6-1.4) mg/dl Est Cr Clr Drug Dosing ml/min Est GFR ( Amer) ml/min Est GFR (Non-Af Amer) ml/min BUN/Creatinine Ratio (10-20) Glucose (70-99) mg/dl POC Glucose 107 H 109 H (70-99) mg/dl Calcium (8.5-10.1) mg/dl Magnesium (1.8-2.4) mg/dl Iron (35-175) mcg/dl TIBC (250-450) mcg/dl Transferrin (200-360) mg/dl Transferrin % Sat (20-50) % Ferritin (8-388) ng/ml Crossmatch 08/02/21 07/31/21 Range/Units 11:34 07:12 WBC (4.8-10.8) K/uL RBC (4.7-6.1) M/uL Hgb (14.0-18.0) g/dL Hct (42-52) % MCV (80-100) fL MCH (25-34) pg MCHC (32-36) g/dL RDW Std Deviation (36.4-46.3) fL RDW Coeff of Leela (11.5-14.5) % Plt Count (130-400) K/uL MPV (7.4-10.4) fL Sodium (136-145) mmol/L Potassium (3.5-5.1) mmol/L Chloride (98-107) mmol/L Carbon Dioxide (21-32) mmol/L Anion Gap (3-11) BUN (7-18) mg/dl Creatinine (0.6-1.4) mg/dl Est Cr Clr Drug Dosing ml/min Est GFR ( Amer) ml/min Est GFR (Non-Af Amer) ml/min BUN/Creatinine Ratio (10-20) Glucose (70-99) mg/dl POC Glucose 116 H (70-99) mg/dl Calcium (8.5-10.1) mg/dl Magnesium (1.8-2.4) mg/dl Iron (35-175) mcg/dl TIBC (250-450) mcg/dl Transferrin (200-360) mg/dl Transferrin % Sat (20-50) % Ferritin (8-388) ng/ml Crossmatch See Detail Diagnostic Findings Telemetry reviewed - Sinus chris and NSR in the 50-60's. Conduction delay. No significant arrhythmias. (1) Syncope Syncope type: unspecified Qualified Code(s): R55 - Syncope and collapse
--- NOTE | 2021-08-03 09:51 | History & Physical Bridge Note ---
Date of Service August 03, 2021 History & Physical Bridge Note I have examined the patient, reviewed the History & Physical and in the interval since the performance of the History & Physical I have noted the following changes of clinical significance: no changes noted. Patient had melena on 08/02. After 3 units of PRBCs, his blood count did finally increase from a hemoglobin of 7.2 to 8.4. Patient has been NPO since prior to midnight. Proceed with EGD today. Supervising Physician Co-Signing Physician Notes Agree with SYLVIA Sepulveda as above Abd: Soft, NT, ND, +BS Continue current therapy and supportive care Proceed with EGD now
--- NOTE | 2021-08-03 13:16 | Hospitalist Progress Note ---
Date of Service August 03, 2021 Assessment & Plan (1) Acute anemia: (2) GI bleed: (3) Syncope: Plan: Syncopal episode. Due to acute blood loss anemia/upper GI bleed. -CT ABD:No acute intracranial hemorrhage, no midline shift or space occupying lesions. Stable encephalomalacia within the right occipital lobe. Stable lacunar infarct within left basal ganglia. No acute depressed skull fractures. 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 Dieulafoy lesion of stomach. Normal duodena l bulb and second portion of the duodenum. No specimens collected. Hb: 8.4 today Appreciate GI Input Continue PPI Continue to hold Plavix Avoid NSAIDs Planned for repeat EGD today Hb stable Further management based on EGD (4) Cardiomyopathy, ischemic: Plan: CAD H/O CABG x2 FOLEY to LAD and vein graft to OM, history of PCI to LAD/RCA 2018 Patient was seen by Dr. Yung 07/28/2021 for consideration of BiV ICD. ECHO 06/19/2021: EF: 35-39% H/O Cardiac cath 03/2019: LAD: Ostial occluded, CX: Small moderate disease, OM 2: Occluded fills with right to left collaterals, RCA: Moderate disease, FOLEY-LAD pain, SVG-CX: Known occlusion Nuclear stress: 04/28/2021: No active ischemia, infarct inferior lateral myocardium Troponin trend was negative Plavix on hold secondary to GI bleed Continue statin, Isosorbide Appreciate cardiology input Likely will need BIV AICD as outpatient after eval with EP Plan for cardiac MRI as outpatient (5) Elevated lactic acid level: Plan: Lactate: 3.1 on admission Low suspicion for infection based on presentation and findings. Elevated lactic likely due to hypotension, resolved. (6) Hyperkalemia: Plan: K: 5.4 on admission Resolved Monitor electrolytes (7) Paroxysmal A-fib: Plan: Currently in sinus rhythm Restarted amiodarone to maintain normal sinus rhythm while off anticoagulation Eliquis on hold due to GI bleed (8) CKD (chronic kidney disease), stage III: Plan: Cr: 1.7 on admission. Baseline 1.2-1.6 Monitor renal function Avoid nephrotoxic agents when possible (9) Diabetes mellitus, type 2: Plan: A1c: 6.3 on 04/05/2021 Hold Metformin NovoLog sliding scale per protocol Monitor BGs (10) CVA (cerebral vascular accident): Plan: History of chronic high-grade stenosis bilateral MCA Continue Statin Plavix on hold (11) HTN (hypertension): Plan: Was taken off of losartan secondary to hypotension Patient initially hypotensive in ER Blood pressure stable Monitor (12) Chronic bundle branch block: Plan: Chronic LBBB DVT Px -SCD Re: GI Bleed Code Status Full Code Admission and Anticipated Discharge Date Admission Date: July 29, 2021 Subjective Patient is seen and examined at bedside Plan for repeat EGD today No new complaints No recurrence of bleeding Denies chest pain, dyspnea, dizziness, nausea, abdominal pain Review of Systems Review of Systems: All systems reviewed & are unremarkable except as noted in Subjective Physical Exam Physical Exam: Physical Exam: Vitals signs as noted above General Appearance:Moderately built and nourished, no apparent distress Head: normocephalic, Atraumatic Eyes: normal inspection, EOMI Neck: supple, Trachea midline Respiratory/Chest: Normal breath sounds, CTA, No accessory muscle use Cardiovascular: S1, S2, + murmur Abdomen/GI:Soft, Non tender, Bowel sounds present Extremities/Musculoskeletal:normal inspection, no edema Neurologic/Psych:AAOX3, grossly no focal neurological deficits Skin: normal color, warm Results & Data Results & Data ([facility]) Vital Signs (Past 12 Hours) Vital Signs Temp Pulse Pulse Resp BP Pulse Ox 08/03/21 11:50 36.7 C 56 L 18 140/75 97 08/03/21 07:21 50 L 08/03/21 06:43 36.4 C L 52 L 18 110/60 96 08/03/21 03:07 36.6 C 61 18 116/53 L 94 Laboratory Results Short CBC 08/02/21 08/03/21 Range/Units 20:21 06:02 WBC 4.06 L (4.8-10.8) K/uL Hgb 8.5 L 8.4 L (14.0-18.0) g/dL Hct 26.0 L 25.2 L (42-52) % Plt Count 127 L (130-400) K/uL BMP 09/09/21 06:02 Sodium 143 Potassium 3.6 Chloride 112 H Carbon Dioxide 29 BUN 18 Creatinine 1.31 Glucose 100 H Calcium 8.2 L (1) Syncope Syncope type: unspecified Qualified Code(s): R55 - Syncope and collapse
--- NOTE | 2021-08-03 15:05 | Anesthesiology Consultation ---
Date of Service August 03, 2021 Assessment & Plan Chart Review Chart Review: Acceptable Risk for Surgery Consults Requested none History Surgery Operation Date: 07/30/21 09:00 Proposed Procedures p Esophagogastroduodenoscopy - Alessio Ray MD Operation Date: 08/03/21 17:15 Proposed Procedures p Esophagogastroduodenoscopy Dr Alexander - Asif Alexander, DO Height/Weight Height: 6 ft 2 in Weight: 108.3 kg Allergies Allergy/AdvReac Type Severity Reaction Status Date / Time No Known Allergies Allergy Verified 08/03/21 14:47 Medications Home Medications Medication Instructions Recorded Confirmed Last Taken isosorbide mononitrate 30 mg 30 mg PO QAM #0 tab 08/12/14 07/29/21 07/29/21 tablet,extended release 24 hr metformin 500 mg tablet 500 mg PO BID #0 tab 02/10/17 07/29/21 07/29/21 08:00 acetaminophen 500 mg tablet 1,000 mg PO UD PRN #0 tab 08/15/17 07/29/21 Unknown (Acetaminophen Extra Strength) nitroglycerin 0.4 mg sublingual 0.4 mg SUBLINGUAL Q5M PRN #0 08/15/17 07/29/21 Unknown tablet rosuvastatin 40 mg tablet 40 mg PO HS 03/30/19 07/29/21 07/28/21 tamsulosin 0.4 mg capsule 0.4 mg PO DAILY 03/30/19 07/29/21 07/29/21 clopidogrel 75 mg tablet 75 mg PO DAILY 03/15/21 07/29/21 07/29/21 gabapentin 800 mg tablet 800 mg PO TID 03/15/21 07/29/21 07/29/21 12:00 indomethacin 50 mg capsule 50 mg PO TID PRN 03/15/21 07/29/21 Unknown montelukast 10 mg tablet 10 mg PO DAILY 03/15/21 07/29/21 07/29/21 cyanocobalamin (vitamin B-12) 5,000 mcg SUBLINGUAL DAILY 07/29/21 07/29/21 07/29/21 5,000 mcg sublingual tablet (Vitamin B-12) ezetimibe 10 mg tablet 10 mg PO DAILY 07/29/21 07/29/21 07/29/21 bouhxeln-rxk-ozquy acid 0.4 1 tab PO DAILY 07/29/21 07/29/21 07/29/21 mg-lycopene 300 mcg-lutein 250 mcg tablet (Centrum Silver) Active Medications Generic Name Dose Route Start Last Admin Trade Name Freq PRN Reason Stop Dose Admin Acetaminophen 650 mg 07/29/21 17:15 08/02/21 10:41 Acetaminophen 325 Mg Tab PO 08/28/21 17:14 650 mg Q4H PRN Administration Pain or Fever Amiodarone HCl 200 mg 07/30/21 13:30 08/03/21 08:28 Amiodarone 200 Mg Tab PO 08/29/21 13:29 200 mg QAM GITA Administration Clopidogrel Bisulfate 75 mg 07/30/21 09:00 07/30/21 08:22 Clopidogrel Bisulfate 75 Mg Tab PO 08/29/21 08:59 Not Given DAILY GITA Cyanocobalamin 5,000 mcg 07/30/21 09:00 08/03/21 08:29 Cyanocobalamin (Vitamin B-12) 2,500 Mcg Tab.Subl SL 08/29/21 08:59 5,000 mcg DAILY GITA Administration Ezetimibe 10 mg 07/30/21 09:00 08/03/21 08:30 Ezetimibe 10 Mg Tablet PO 08/29/21 08:59 10 mg DAILY GITA Administration Gabapentin 800 mg 07/29/21 21:00 08/03/21 13:20 Gabapentin 800 Mg Tab PO 08/28/21 20:59 800 mg TID GITA Administration Pantoprazole Sodium 40 mg/ 100 mls @ 20 mls/hr 08/02/21 11:30 08/03/21 14:26 Dextrose IV 09/01/21 11:29 0 mg/hr Q5H GITA 0 mls/hr Infusion 8 MG/HR Insulin Aspart 0 units 07/31/21 11:30 08/03/21 12:07 Insulin Aspart 100 Units/Ml 3 Ml Pen SC 08/30/21 11:29 Not Given ACHS GITA Isosorbide Mononitrate 30 mg 07/30/21 09:00 08/03/21 08:30 Isosorbide [place] Extended Rel 30 Mg Tabcr PO 08/29/21 08:59 30 mg QAM GITA Administration Montelukast Sodium 10 mg 07/30/21 09:00 08/03/21 08:30 Montelukast Sodium 10 Mg Tablet PO 08/29/21 08:59 10 mg DAILY GITA Administration Multivitamins 1 tab 07/30/21 09:00 08/03/21 08:31 Multivitamin Tab PO 08/29/21 08:59 1 tab DAILY GITA Administration Rosuvastatin Calcium 40 mg 07/29/21 21:00 08/02/21 20:53 Rosuvastatin Calcium 20 Mg Tab PO 08/28/21 20:59 40 mg HS GITA Administration Tamsulosin HCl 0.4 mg 07/30/21 09:00 08/03/21 08:31 Tamsulosin Hcl 0.4 Mg Cap PO 08/29/21 08:59 0.4 mg DAILY GITA Administration NPO Date Last Intake of Fluids: 08/03/21 Time Last Intake of Fluids: 14:00 Last Intake of Fluids Comment: sip with med Date Last Intake of Solids: 08/02/21 Time Last Intake of Solids: 17:00 Past Medical History Medical History Atrial fibrillation with rapid ventricular response Chronic bundle branch block LBBB CKD (chronic kidney disease), stage III Coronary artery disease 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 CVA (cerebral vascular accident) Diabetes Diabetes mellitus, type 2 Dyslipidemia GERD (gastroesophageal reflux disease) GERD (gastroesophageal reflux disease) Gout HTN (hypertension) Hypertension Paroxysmal A-fib TIA (transient ischemic attack) Past Family History Family History Mother Stroke Past Surgical History Surgical History H/O umbilical hernia repair x2 History of coronary artery stent placement LAD and RCA 2019 History of Amie fundoplication S/P CABG x 2 S/P repair of paraesophageal hernia Status post cataract extraction Status post tonsillectomy Social History Smoking Status: Former smoker tobacco type: cigarettes Hx Alcohol Use: Yes Alcohol type: beer alcohol intake frequency: holidays/special occasions only Hx Substance Use: No substance use type: does not use Physical Exam Vital Signs Last Vital Signs Temp 37 C 08/03/21 14:47 Pulse 63 08/03/21 14:47 Resp 18 08/03/21 14:47 BP 140/76 08/03/21 14:47 Pulse Ox 96 08/03/21 14:47 Testing Laboratory Results 08/03/21 06:02 08/03/21 06:02 PT 11.2 Seconds (9.0-12.0) 07/29/21 13:05 INR 1.1 (0.9-1.1) 07/29/21 13:05 APTT 20.2 Seconds (21.0-31.0) L 07/29/21 13:05 Hemoglobin A1c 6.2 % (4.5-5.6) H 07/30/21 05:59 Urine Color Yellow 07/29/21 15:51 Urine Appearance Clear (Clear) 07/29/21 15:51 Urine pH 5.5 (4.5-7.5) 07/29/21 15:51 Ur Specific [place] 1.022 (1.000-1.030) 07/29/21 15:51 Urine Protein Negative (Negative) 07/29/21 15:51 Urine Glucose (UA) Negative (Negative) 07/29/21 15:51 Urine Ketones Trace (Negative) H 07/29/21 15:51 Urine Nitrite Negative (Negative) 07/29/21 15:51 Ur Leukocyte Esterase Negative (Negative) 07/29/21 15:51 Blood Type A Positive 07/31/21 07:12 Antibody Screen NEGATIVE 07/31/21 07:12 07/29/21 13:34 Aerobic Blood Culture - Final Blood No growth in Aerobic bottle after 5 days. Anaerobic Blood Culture - Final No growth in Anaerobic bottle after 5 days. 07/29/21 13:34 Aerobic Blood Culture - Final Blood No growth in Aerobic bottle after 5 days. Anaerobic Blood Culture - Final No growth in Anaerobic bottle after 5 days. 08/03/21 08/03/21 11:33 07:26 POC Glucose 100 H 104 H
[2021-08-03] MEDS ORDERED: PROPOFOL IV EMULSION 10 MG/ML 20 ML VIAL IV ONE (15:37)
[2021-08-03] MEDS ORDERED: LIDOCAINE 2% 2 ML VIAL/AMP(20MG/ML) INFIL ONE (15:37)
--- NOTE | 2021-08-03 15:43 | GI REPORT ---
Patient Name: Tulio Becerra Procedure Date: 08/03/2021 3:25 PM Date of : 1945 Admit Type: Inpatient Age: 75 Gender: Male Attending MD: Asif Alexander DO Procedure: Upper GI endoscopy Providers: Asif Alexander DO Referring MD: Gi Quintero Md Indications: Melena Medicines: Monitored Anesthesia Care Complications: No immediate complications. Estimated Blood Loss: Estimated blood loss: none. Procedure: Pre-Anesthesia Assessment: - Prior to the procedure, a History and Physical was performed, and patient medications and allergies were reviewed. The patient's tolerance of previous anesthesia was also reviewed. The risks and benefits of the procedure and the sedation options and risks were discussed with the patient. All questions were answered, and informed consent was obtained. Prior Anticoagulants: The patient has taken Plavix (clopidogrel), last dose was 5 days prior to procedure. ASA Grade Assessment: IV - A patient with severe systemic disease that is a constant threat to life. After reviewing the risks and benefits, the patient was deemed in satisfactory condition to undergo the procedure. After obtaining informed consent, the endoscope was passed under direct vision. Throughout the procedure, the patient's blood pressure, pulse, and oxygen saturations were monitored continuously. The Endoscope was introduced through the mouth, and advanced to the second part of duodenum. The upper GI endoscopy was accomplished without difficulty. The patient tolerated the procedure well. Findings: The esophagus was normal. A 3 mm ulceration was found in the gastric fundus from prior Dieulafoy lesion s/p epinephrine and Bipolar probe therapy. The area was unremarkable in appearance. Adjacent mucosal findings include erythema. There was no evidence of active or recent bleeding. The examined duodenum was normal. Impression: - Normal esophagus. - Scar in the gastric fundus. - Normal examined duodenum. - No specimens collected. Recommendation: - Return patient to [facility] for [facility] care. - Advance diet as tolerated. - Use Protonix (pantoprazole) 40 mg PO BID. Asif Alexander DO 08/03/2021 3:42:25 PM This report has been signed electronically. Note Initiated On: 08/03/2021 3:25 PM Number of Addenda: 0 I attest to the content of the Intraoperative Record and orders documented therein, exceptions below {[id number]}
--- NOTE | 2021-08-03 16:03 | Anesthesiology Progress Note ---
Date of Service August 03, 2021 Anesthesia Post Procedure Vital Signs Vital Signs: Temp Pulse Pulse Resp BP Pulse Ox 08/03/21 15:55 56 L 12 111/52 L 97 08/03/21 15:40 57 L 10 L 93/51 L 97 08/03/21 14:47 37 C 63 18 140/76 96 08/03/21 11:50 36.7 C 56 L 18 140/75 97 08/03/21 07:21 50 L 08/03/21 06:43 36.4 C L 52 L 18 110/60 96 08/03/21 03:07 36.6 C 61 18 116/53 L 94 08/02/21 23:16 36.7 C 62 18 138/72 92 08/02/21 23:00 58 L 08/02/21 19:35 36.6 C 53 L 18 150/74 H 97 08/02/21 16:16 36.4 C L 62 19 118/62 98 Transfer of Care Handoff Completed per policy Notes Mental Status: alert / awake / arousable Patient Amnestic to Procedure: Yes Nausea / Vomiting: adequately controlled Pain: adequately controlled Airway Patency, RR, SpO2: stable & adequate BP & HR: stable & adequate Hydration State: stable & adequate Anesthetic Complications: no major complications apparent
[2021-08-03] MEDS: ROSUVASTATIN CALCIUM 20 MG TAB PO SCH (20:45)
[2021-08-03] MEDS: PANTOprazole 40 MG TAB PO SCH (20:46)
[2021-08-04 06:47] LABS: Hematocrit (blood only) 27.3 % (42-52); Hemoglobin 8.8 g/dL (14.0-18.0); Mean Corpuscular Hemoglobin 30.6 pg (25-34); Mean Corpuscular Hgb Conc 32.2 g/dL (32-36); Mean Corpuscular Volume 94.8 fL (80-100); Mean Platelet Volume 10.7 fL (7.4-10.4); Platelet Count 149 K/uL (130-400); RDW Coefficient of Variation 15.9 % (11.5-14.5); RDW Standard Deviation 51.6 fL (36.4-46.3); Red Blood Count 2.88 M/uL (4.7-6.1); White Blood Count 4.49 K/uL (4.8-10.8)
[2021-08-04 07:20] LABS: BUN Creatinine Ratio 10.6 (10-20); Calcium 8.5 mg/dl (8.5-10.1); Creatinine Clr Calc Pharmacy 63.4 ml/min; Est GFR (African American) 59.4 ml/min; Est GFR (Non-African American) 51.3 ml/min; Potassium 3.8 mmol/L (3.5-5.1)
[2021-08-04] MEDS: AMIODARONE 200 MG TAB PO SCH (08:05)
[2021-08-04] MEDS: GABAPENTIN 800 MG TAB PO SCH ×2 (08:06→13:16)
[2021-08-04] MEDS: EZETIMIBE 10 MG TABLET PO SCH (08:06)
[2021-08-04] MEDS: CYANOCOBALAMIN (VITAMIN B-12) 2,500 MCG TAB.SUBL SL SCH (08:06)
[2021-08-04] MEDS: MULTIVITAMIN TAB PO SCH (08:07)
[2021-08-04] MEDS: PANTOprazole 40 MG TAB PO SCH (08:07)
[2021-08-04] MEDS: ISOSORBIDE MONO EXTENDED REL 30 MG TABCR PO SCH (08:07)
[2021-08-04] MEDS: MONTELUKAST SODIUM 10 MG TABLET PO SCH (08:07)
[2021-08-04] MEDS: TAMSULOSIN HCL 0.4 MG CAP PO SCH (08:07)
[2021-08-04] MEDS: INSULIN ASPART 100 UNITS/ML 3 ML PEN SC SCH ×2 (08:19→12:40)
--- NOTE | 2021-08-04 11:03 | Hospitalist Progress Note ---
Date of Service August 04, 2021 Assessment & Plan (1) Acute anemia: (2) GI bleed: (3) Syncope: Plan: Syncopal episode. Due to acute blood loss anemia/upper GI bleed. -CT ABD:No acute intracranial hemorrhage, no midline shift or space occupying lesions. Stable encephalomalacia within the right occipital lobe. Stable lacunar infarct within left basal ganglia. No acute depressed skull fractures. 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 Dieulafoy lesion of stomach. Normal duoden al bulb and second portion of the duodenum. No specimens collected. Repeat EGD on 08/03/21: Normal esophagus. Scar in the gastric fundus. Normal examined duodenum. No specimens collected. Patient could have iron deficiency anemia based on iron studies States having significant constipation with iron supplements previously and currently prefers to defer iron supplements Appreciate GI Input Continue PPI Continue to hold Plavix Avoid NSAIDs Monitor H&H Hb: 8.8 today (4) Cardiomyopathy, ischemic: Plan: CAD H/O CABG x2 FOLEY to LAD and vein graft to OM, history of PCI to LAD/RCA 2018 Patient was seen by Dr. Yung 07/28/2021 for consideration of BiV ICD. ECHO 06/19/2021: EF: 35-39% H/O Cardiac cath 03/2019: LAD: Ostial occluded, CX: Small moderate disease, OM 2: Occluded fills with right to left collaterals, RCA: Moderate disease, FOLEY-LAD pain, SVG-CX: Known occlusion Nuclear stress: 04/28/2021: No active ischemia, infarct inferior lateral myocardium Troponin trend was negative Plavix on hold secondary to GI bleed Continue statin, Isosorbide Appreciate cardiology input Likely will need BIV AICD as outpatient after eval with EP Plan for cardiac MRI as outpatient (5) Elevated lactic acid level: Plan: Lactate: 3.1 on admission Low suspicion for infection based on presentation and findings. Elevated lactic likely due to hypotension, resolved. (6) Hyperkalemia: Plan: K: 5.4 on admission Resolved Monitor electrolytes (7) Paroxysmal A-fib: Plan: Currently in sinus rhythm Restarted amiodarone to maintain normal sinus rhythm while off anticoagulation Colette on hold due to GI bleed (8) CKD (chronic kidney disease), stage III: Plan: Cr: 1.7 on admission. Baseline 1.2-1.6 Monitor renal function Avoid nephrotoxic agents when possible Cr:1.36 today (9) Diabetes mellitus, type 2: Plan: A1c: 6.3 on 04/05/2021 Hold Metformin NovoLog sliding scale per protocol Monitor BGs (10) CVA (cerebral vascular accident): Plan: History of chronic high-grade stenosis bilateral MCA Continue Statin Plavix on hold (11) HTN (hypertension): Plan: Was taken off of losartan secondary to hypotension Patient initially hypotensive in ER Blood pressure stable Monitor (12) Chronic bundle branch block: Plan: Chronic LBBB DVT Px -SCD Re: GI Bleed Code Status Full Code Admission and Anticipated Discharge Date Admission Date: July 29, 2021 Subjective Patient is seen and examined at bedside No recurrence of bleeding/melena Had EGD yesterday Denies chest pain, dyspnea, dizziness, nausea, abdominal pain Hb stable Review of Systems Review of Systems: All systems reviewed & are unremarkable except as noted in Subjective Physical Exam Physical Exam: Physical Exam: Vitals signs as noted above General Appearance:Moderately built and nourished, no apparent distress Head: normocephalic, Atraumatic Eyes: normal inspection, EOMI Neck: supple, Trachea midline Respiratory/Chest: Normal breath sounds, CTA, No accessory muscle use Cardiovascular: S1, S2, + murmur Abdomen/GI:Soft, Non tender, Bowel sounds present Extremities/Musculoskeletal:normal inspection, no edema Neurologic/Psych:AAOX3, grossly no focal neurological deficits Skin: normal color, warm Results & Data Results & Data ([facility]) Vital Signs (Past 12 Hours) Vital Signs Temp Pulse Pulse Resp BP BP Pulse Ox 08/04/21 07:46 36.5 C 58 L 16 122/72 100 08/04/21 07:22 54 L 08/04/21 03:58 36.6 C 59 L 18 138/65 97 08/03/21 23:25 36.8 C 58 L 18 107/52 L 95 08/03/21 23:00 55 L Laboratory Results Short CBC 08/04/21 Range/Units 06:16 WBC 4.49 L (4.8-10.8) K/uL Hgb 8.8 L (14.0-18.0) g/dL Hct 27.3 L (42-52) % Plt Count 149 (130-400) K/uL BMP 08/04/21 06:16 Sodium 142 Potassium 3.8 Chloride 110 H Carbon Dioxide 30 BUN 14 Creatinine 1.36 Glucose 103 H Calcium 8.5 (1) Syncope Syncope type: unspecified Qualified Code(s): R55 - Syncope and collapse
--- NOTE | 2021-08-04 11:31 | Cardiology Progress Note ---
Date of Service August 04, 2021 Assessment & Plan (1) Syncope: Plan: Syncope In setting of acute GI bleed No arrhythmias on telemetry Chronic LBBB Amiodarone resumed due to history of afib to maintain NSR while off anticoagulation therapy, no arrhythmias since admission would continue (2) Cardiomyopathy, ischemic: Plan: LVEF 35% LBBB Recent nuclear stress demonstrating extensive scar without ischemia Outpatient cardiac MRI to be arranged Following with EP to consider BIV AICD (3) GI bleed: Plan: Admission for acute GI bleed. Continue protonix 40 mg BID per GI No signs of further bleeding. Would resume clopidogrel on discharge Call with any additional questions Plan: Admission and Anticipated Discharge Date Admission Date: July 29, 2021 Subjective Patient seen and examined, chart, medications, telemetry reviewed. Patient overall feels well this morning no GI upset or irritation. No dizziness or lightheadedness. No breathlessness. No tachycardia or bradycardia arrhythmias on telemetry Review of Systems Review of Systems: All systems reviewed & are unremarkable except as noted in Subjective Physical Exam Constitutional: WD/WN, vitals as above Eyes: PERRL, conjunctivae normal, anicteric sclerae ENMT: external ear and nose normal, oropharynx normal Neck: trachea midline, no thyromegaly Respiratory: normal respiratory effort, lungs clear to auscultation Cardiovascular: Rate/Rhythm: regular rate and regular rhythm Heart Sounds: normal S1, normal S2 and + murmur (Grade 1/6 systolic); no gallop Palpation: normal PMI Vessels: normal carotid upstroke and radial pulses present; no JVD and no carotid bruit Extremities: no edema Gastrointestinal (Abdomen): normal bowel sounds, soft, nontender, no hepatosplenomegaly Musculoskeletal: no cyanosis or clubbing, extremities motor strength 5/5 Skin: no rashes, warm and dry Neurologic: PERRL, EOMI, accommodation nl, no face palsy, no dysarthria Psychiatric: A+Ox3, euthymic affect Results & Data ([facility]) Vital Signs (Past 12 Hours) Vital Signs Temp Pulse Pulse Resp BP BP Pulse Ox 08/04/21 10:59 37.0 C 53 L 16 123/69 92 08/04/21 07:46 36.5 C 58 L 16 122/72 100 08/04/21 07:22 54 L 08/04/21 03:58 36.6 C 59 L 18 138/65 97 Laboratory Results Laboratory Results - last 24 hr 08/03/21 08/03/21 08/03/21 16:29 18:01 20:19 WBC RBC Hgb Hct MCV MCH MCHC RDW Std Deviation RDW Coeff of Leela Plt Count MPV Sodium Potassium Chloride Carbon Dioxide Anion Gap BUN Creatinine Est Cr Clr Drug Dosing Est GFR ( Amer) Est GFR (Non-Af Amer) BUN/Creatinine Ratio Glucose POC Glucose 92 144 H 106 H Calcium 08/04/21 08/04/21 08/04/21 06:16 06:16 07:37 WBC 4.49 L RBC 2.88 L Hgb 8.8 L Hct 27.3 L MCV 94.8 MCH 30.6 MCHC 32.2 RDW Std Deviation 51.6 H RDW Coeff of Leela 15.9 H Plt Count 149 MPV 10.7 H Sodium 142 Potassium 3.8 Chloride 110 H Carbon Dioxide 30 Anion Gap 2.0 L BUN 14 Creatinine 1.36 Est Cr Clr Drug Dosing 63.4 Est GFR ( Amer) 59.4 Est GFR (Non-Af Amer) 51.3 BUN/Creatinine Ratio 10.6 Glucose 103 H POC Glucose 121 H Calcium 8.5 08/04/21 11:15 WBC RBC Hgb Hct MCV MCH MCHC RDW Std Deviation RDW Coeff of Leela Plt Count MPV Sodium Potassium Chloride Carbon Dioxide Anion Gap BUN Creatinine Est Cr Clr Drug Dosing Est GFR ( Amer) Est GFR (Non-Af Amer) BUN/Creatinine Ratio Glucose POC Glucose 101 H Calcium (1) Syncope Syncope type: unspecified Qualified Code(s): R55 - Syncope and collapse
--- NOTE | 2021-08-04 14:18 | Discharge Summary ---
Date of Service August 04, 2021 Admission HPI Per Admitting Provider Pt is 75 y/o M with PMH CAD with CABG x2 FOLEY to LAD and vein graft to OM, history of PCI to LAD/RCA 2018, ischemic cardiomyopathy with EF 35%, history of nonsustained SVT, history of CVA/TIA, PAF, DM II, HTN, HLD, bilateral asymptomatic carotid artery stenosis, chronic high-grade stenosis bilateral MCA presented to ER with complaint of syncope this morning. Patient reports this morning around 8 AM started feeling hot. He reports when up to kitchen and sat on barstool to try and cool down but continued to feel hot and felt dizzy. Patient's took his blood pressure several times and had trended down to 63/55. Then reports patient had syncopal episode and fell off barstool. Patient's reports patient was unresponsive for approximately 1 to 2 minutes. Patient denies any known injury or headache. Denies chest pain, shortness of breath, vision changes, visual disturbance, palpitations. Denies fever/chills, diaphoresis, N/V/D/C, TSANG, neck pain, cough, sore throat, choking, otalgia, rhinorrhea, abdominal pain, paresthesias, weakness, extremity weakness, extremity edema, rashes, urinary symptoms. Patient was seen by Dr. Yung 07/28/2021 for consideration of BiV ICD. Follows with [facility] cardiology. History echo 06/19/2021: EF: 35-39% History of cardiac cath 03/2019: LAD: Ostial occluded, CX: Small moderate disease, OM 2: Occluded fills with right to left collaterals, RCA: Moderate disease, FOLEY-LAD pain, SVG-CX: Known occlusion Nuclear stress: 04/28/2021: No active ischemia, infarct inferior lateral myocardium In ER initial BP 93/57 up to 111/57. No arrhythmias noted on monitor while in ER. EKGs LBBB with no acute changes. CT head: No acute intracranial changes. Was given 500 mL NSS bolus in ER. Patient being admitted for further observation. Admission Exam Per Admitting Provider Physical Exam Physical Exam: General: no distress, WDWN Head: normocephalic, atraumatic Eyes: PERRL, EOM's intact, conjunctiva non-injected, anicteric ENT: normal inspection external ears, nose, mucous membranes moist Neck: supple, trachea midline Lungs: clear, no respiratory distress, no wheezing/rhonchi/rales CV: RRR, + systolic murmur, no pretibial edema Abd: normal BS, soft, non-tender Ext: no cyanosis, no calf tenderness Neuro: A&O x 3, no focal deficits noted, normal affect Skin: warm, dry Principal Diagnosis Syncope Acute Blood Loss Anemia Acute upper GI bleed Discharge Data Allergies Allergy/AdvReac Type Severity Reaction Status Date / Time No Known Allergies Allergy Verified 08/03/21 14:47 Consultations 07/29/21 15:44 ED Decision to Admit Stat 07/29/21 17:15 Consult Cardiology Routine 07/30/21 07:13 Consult Gastroenterology Routine Procedures Performed Operation Date: 07/30/21 09:00 Actual Procedures p Esophagogastroduodenoscopy(Not Applicable) - Alessio Ray MD Operation Date: 08/03/21 17:15 Actual Procedures p Esophagogastroduodenoscopy - Asif Nayak Case, DO Ordered Studies 07/29/21 14:41 CT head/brain wo con Stat Hospital Course (1) Acute anemia: (2) GI bleed: (3) Syncope: Syncopal episode. Due to acute blood loss anemia/upper GI bleed. -CT ABD:No acute intracranial hemorrhage, no midline shift or space occupying lesions. Stable encephalomalacia within the right occipital lobe. Stable lacunar infarct within left basal ganglia. No acute depressed skull fractures. 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 Dieulafoy lesion of stomach. Normal duodenal bulb and second portion of the duodenum. No specimens collected. Repeat EGD on 08/03/21: Normal esophagus. Scar in the gastric fundus. Normal examined duodenum. No specimens collected. Patient could have iron deficiency anemia based on iron studies States having significant constipation with iron supplements previously and currently prefers to defer iron supplements Appreciate GI Input Continue PPI Continue to hold Plavix Avoid NSAIDs Monitor H&H Hb: 8.8 today (4) Cardiomyopathy, ischemic: CAD H/O CABG x2 FOLEY to LAD and vein graft to OM, history of PCI to LAD/RCA 2018 Patient was seen by Dr. Yung 07/28/2021 for consideration of BiV ICD. ECHO 06/19/2021: EF: 35-39% H/O Cardiac cath 03/2019: LAD: Ostial occluded, CX: Small moderate disease, OM 2: Occluded fills with right to left collaterals, RCA: Moderate disease, FOLEY-LAD pain, SVG-CX: Known occlusion Nuclear stress: 04/28/2021: No active ischemia, infarct inferior lateral myocardium Troponin trend was negative Plavix on hold secondary to GI bleed Continue statin, Isosorbide Appreciate cardiology input Likely will need BIV AICD as outpatient after eval with EP Plan for cardiac MRI as outpatient (5) Elevated lactic acid level: Lactate: 3.1 on admission Low suspicion for infection based on presentation and findings. Elevated lactic likely due to hypotension, resolved. (6) Hyperkalemia: K: 5.4 on admission Resolved Monitor electrolytes (7) Paroxysmal A-fib: Currently in sinus rhythm Restarted amiodarone to maintain normal sinus rhythm while off anticoagulation Eliquis on hold due to GI bleed (8) CKD (chronic kidney disease), stage III: Cr: 1.7 on admission. Baseline 1.2-1.6 Monitor renal function Avoid nephrotoxic agents when possible Cr:1.36 today (9) Diabetes mellitus, type 2: A1c: 6.3 on 04/05/2021 Hold Metformin NovoLog sliding scale per protocol Monitor BGs (10) CVA (cerebral vascular accident): History of chronic high-grade stenosis bilateral MCA Continue Statin Plavix on hold (11) HTN (hypertension): Was taken off of losartan secondary to hypotension Patient initially hypotensive in ER Blood pressure stable Monitor (12) Chronic bundle branch block: Chronic LBBB DVT Px -SCD Re: GI Bleed Code Status Full Code Total Time Total Time Spent Total Time Spent (In Minutes): 44 minutes Discharge Plan Discharge Items Patient Disposition: Home - Self-Care Reason For Visit: SYNCOPE Discharge Diagnosis: Syncope Acute Blood Loss Anemia Acute upper GI bleed Activity: Per Instructions section Exercise/Sports: Wait until after follow-up appointment Non-emergency contact: Primary Care Provider, Client Reporting Associate and Pegger Call non-emergency contact if: you have any medication questions, your symptoms worsen, your pain is concerning for you and you have a fever Follow-up/Referrals: Mukul Corey DO [Physician] - (Date & Time 09/19/2021 3:00 PM Provider Mukul Corey Jr., DO Department Cardiology, [facility] ) Chava Bell MD [Primary Care Provider] - (Date & Time 08/11/2021 10:40 AM Provider Chava Bell MD Department Family Practice [facility] ) Kamryn Siegel DO [Physician] - (Date & Time 08/17/2021 9:40 AM Provider Kamryn Siegel DO Department Gastroenterology, [facility] ) Diet: Carb Consistent or DM2 Addtl Attending Provider Instructions: Follow-up with your primary care physician Dr. Chava Bell on 08/11/2021 10:40 AM Follow-up with your pepper picker Dr. Corey on 09/19/2021 3:00 PM Follow-up with your carton forming machine operator Dr. Siegel on 08/17/2021 9:40 AM Monitor for any bleeding issues as advised. Do not take group of medications belonging to NSAIDs group -Increase your risk for bleeding and can worsen of your kidney function. List Of these medications includes but not limited to: Diclofenac Ibuprofen, Motrin, Advil Toradol,ketorolac Naproxen, Aleve, Naprosyn You can take Tylenol as needed for pain or fever When buying [id number] pain medications please consult with pharmacy if you are not sure regarding ingredients, as a lot of the pain medications have combination of NSAIDs and Tylenol. --You can resume Plavix tomorrow as recommended by your pepper picker, carton forming machine operator. If you notice any recurrence of bleeding, hold Plavix and consult your physician for immediate care. Seek immediate medical attention if your symptoms reoccur or worsen Please take all medications as instructed on discharge list below. Please call if you have any questions or problems. You can reach a [facility] hospitalist on duty at [facility] 24 hours a day by calling [phone] Pending Studies at Discharge: No Stand-Alone Forms: My [facility] CASTT, Smoking Cessation Medications and DC Order Prescriptions: New amiodarone 200 mg Tablet 200 mg PO QAM Qty: 30 RF: 1 pantoprazole 40 mg Tablet,Delayed Release (Dr/Ec) 40 mg PO BID Qty: 60 RF: 1 Continued isosorbide mononitrate 30 mg Tablet Extended Release 24 Hr 30 mg PO QAM Qty: 0 RF: 0 metformin 500 mg Tablet 500 mg PO BID Qty: 0 RF: 0 acetaminophen [Acetaminophen Extra Strength] 500 mg Tablet 1,000 mg PO UD PRN (Reason: Pain) Qty: 0 RF: 0 nitroglycerin 0.4 mg Tablet, Sublingual 0.4 mg sublingual Q5M PRN (Reason: Chest Pain) Qty: 0 RF: 0 tamsulosin 0.4 mg Capsule 0.4 mg PO DAILY RF: 0 rosuvastatin 40 mg Tablet 40 mg PO HS RF: 0 gabapentin 800 mg tablet 800 mg PO TID RF: 0 montelukast 10 mg tablet 10 mg PO DAILY RF: 0 clopidogrel 75 mg Tablet 75 mg PO DAILY RF: 0 ezetimibe 10 mg tablet 10 mg PO DAILY RF: 0 Centrum Silver 0.4-300-250 mg-mcg-mcg Tablet 1 tab PO DAILY RF: 0 cyanocobalamin (vitamin B-12) [Vitamin B-12] 5,000 mcg Tablet, Sublingual 5,000 mcg SUBLINGUAL DAILY RF: 0 Discontinued indomethacin 50 mg capsule 50 mg PO TID PRN (Reason: as directed) RF: 0 Discharge Orders: Discharge Order (Routine); Ordered 08/04/21 Ordered By: Jad Overton/Other Patient Handouts: A1C, High Blood Sugar (Hyperglycemia), Hypoglycemia (Low Blood Sugar) Admission Data Admit Date/Time: 07/29/21 15:17 Attending Provider: Jad Miles Admit Provider: Gi Quintero I. Primary Care Provider: Chava Bell Other Providers: Gi Quintero I. ; Rylan Olmstead ; Alessio Ray Other Interventions: Discharge Summary Assessment (RN) Last Done: 08/04/21 14:25
== END 2021-08-04 15:08 | disposition home or self-care (01) | DRG 378 ==
LOC: ED 12:39 → SUATTDRO 15:17 → 2N 15:17

== ENCOUNTER 2022-05-10 11:29 | Inpatient (IN) ==
--- NOTE | 2022-05-10 11:59 | Emergency Department Note ---
Impression & Plan Sepsis, Pneumonia, Elevated troponin, MCKENZIE (acute kidney injury), Acute hypokalemia ED Provider Note NAME: KEYANA CHAVIS AGE: 76 SEX: M : 1945 ARRIVES VIA: Walk-In INFORMANT: Patient ED PROVIDER(S): Andrews Rivers DO CHIEF COMPLAINT: dizzy HPI: Patient is a 76-year-old female who presents the ER for anemia, CKD, hypertension, hyperlipidemia, CVA, diabetes, ischemic cardiomyopathy with an ICD, TIA who presents the ER following a fall yesterday. He was very dizzy and lightheaded. He did not hit his head. There was no loss consciousness. He was at cardiology's office today and was referred in for admission. He has ST wave changes on his EKG per . He denies any chest pain or shortness of breath but does admit to diffuse fatigue. No dysuria, urgency, or frequency. No other exacerbating or remitting factors. ROS: See above HPI for pertinent positives & negatives. A total of 10 systems reviewed and were otherwise negative. PAST MEDICAL HISTORY:See Below PAST SURGICAL HISTORY:See Below FAMILY HISTORY:See Below SOCIAL HISTORY:See Below HOME MEDICATIONS:See Below ALLERGIES:See Below VITALS:See Below PHYSICAL EXAMINATION: GENERAL: Sitting up in bed, alert, well appearing, well nourished, no distress, non-toxic EYE EXAM: normal conjunctiva. PERRL and EOM's grossly intact. OROPHARYNX: no exudate, no erythema, lips, buccal mucosa, and tongue normal and mucous membranes are moist NECK: supple, no nuchal rigidity, no adenopathy, non-tender LUNGS: Clear to auscultation. Normal chest wall mechanics HEART: no murmurs, S1 normal and S2 normal ABDOMEN: abdomen soft, non-tender, normo-active bowel sounds, no masses, no rebound or guarding. BACK: Back is symmetrical on inspection and there is no deformity, no midline tenderness, no CVA tenderness. SKIN: no rashes and no bruising UPPER EXTREMITIES: upper extremities are grossly normal. LOWER EXTREMITIES: No pitting edema. NEURO EXAM: Alert following commands but could not obtain history, cranial nerves II-XII intact, slight slurred speech, no weakness of arms, no weakness of legs. Rapid alternating movements of her extremities intact. No drift. [place]-ej-otwy intact. MEDICAL DECISION MAKING: Patient is a 76-year-old male who presents ER for the above-stated complaint. IV was established blood work was obtained. Labs show no significant leukocytosis or anemia. BMP with mild hypokalemia. Creatinine was significantly elevated 2.20 from a baseline of about 1. LFTs were unremarkable. Troponin was significantly elevated at about 400. Procalcitonin was elevated 0.65. Lipase was normal. UA was contaminated. He does admit to a cough. He was found to be febrile and tachycardic on repeat evaluation. Chest x-ray suggest a right mid lobe infiltrate. This in combination with the new MCKENZIE I favor is the likely cause of the elevated troponin but cannot be certain at this time especially in light of his poor history. Denies any dysuria urgency or frequency. CT head was negative. EKG was paced. Pacemaker was interrogated an d showed 1 short 1 second run of VT earlier today per [employer]. On exam patient had no focal deficits. CT head was performed and unremarkable. Unable to perform angio secondary to the creatinine. Patient and were updated bedside. He was given IV fluids and IV antibiotics admitted to the hospitalist Pennie Lyle for further evaluation. Triage Nursing notes reviewed. Limited review of prior medical records performed Vital Signs: reviewed and remarkable for tachycardic Differential diagnosis: Infection, dehydration, metabolic abnormality, hypo/hyperglycemia, electrolyte disturbance, anemia, hypoxia, cardiac sources, intracerebral event, toxicologic, neurologic, as well as other pathologies. ER treatment provided: See below Diagnostics interpreted by me: ECG: Ventricular paced rate of 100 Left axis PVC QTC 495 Cardiac Monitoring: An order was placed for continuous cardiac monitoring. The monitor shows a rate of 100 with paced rhythm. Laboratory studies: As stated above and show below. 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 CVA (cerebral vascular accident) Diabetes Diabetes mellitus, type 2 Dyslipidemia GERD (gastroesophageal reflux disease) GERD (gastroesophageal reflux disease) Gout HTN (hypertension) Hypertension Paroxysmal A-fib TIA (transient ischemic attack) Surgical History H/O umbilical hernia repair x2 History of coronary artery stent placement LAD and RCA 2019 History of Amie fundoplication S/P CABG x 2 S/P repair of paraesophageal hernia Status post cataract extraction Status post tonsillectomy Family History Mother Stroke Denies family history of Crohn's disease Colorectal cancer Ulcerative colitis Social History Smoking Status: Former smoker Second Hand Exposure: No; Do You Dip or Chew Tobacco: No; Hx Alcohol Use: Yes Alcohol type: beer Hx Substance Use: No Preferred Language: Bengali Communication Ability: Effective Communication Ability Comment: [phone] [employer] Required: No Beliefs That Will Affect Care: None Current Living Situation: Spouse current occupation: Retired Feels Safe at Home: Yes Safety Concerns: Feels Safe At This Time Assistive Devices: None Allergies Allergies Allergy/AdvReac Type Severity Reaction Status Date / Time No Known Allergies Allergy Verified 10/11/21 08:42 Home Meds Home Medications Medication Instructions Recorded Confirmed isosorbide mononitrate 30 mg 30 mg PO QAM #0 tab 08/12/14 05/10/22 tablet,extended release 24 hr metformin 500 mg tablet 500 mg PO BID #0 tab 02/10/17 05/10/22 acetaminophen 500 mg tablet 1,000 mg PO UD PRN #0 tab 08/15/17 05/10/22 (Acetaminophen Extra Strength) nitroglycerin 0.4 mg sublingual 0.4 mg SUBLINGUAL Q5M PRN #0 08/15/17 05/10/22 tablet rosuvastatin 40 mg tablet 40 mg PO HS 03/30/19 05/10/22 tamsulosin 0.4 mg capsule 0.4 mg PO DAILY 03/30/19 05/10/22 clopidogrel 75 mg tablet 75 mg PO DAILY 03/15/21 05/10/22 montelukast 10 mg tablet 10 mg PO DAILY 03/15/21 05/10/22 cyanocobalamin (vitamin B-12) 5,000 mcg SUBLINGUAL DAILY 07/29/21 05/10/22 5,000 mcg sublingual tablet (Vitamin B-12) ezetimibe 10 mg tablet 10 mg PO DAILY 07/29/21 05/10/22 arlhuhri-fmp-cgznf acid 0.4 1 tab PO DAILY 07/29/21 05/10/22 mg-lycopene 300 mcg-lutein 250 mcg tablet (Centrum Silver) indomethacin 50 mg capsule 50 mg PO TID PRN 08/15/21 05/10/22 fludrocortisone 0.1 mg tablet 0.1 mg PO DAILY 05/10/22 05/10/22 pregabalin 75 mg capsule 75 mg PO TID 05/10/22 05/10/22 Results & Data (ED) Vital Signs Vital Signs - 24 hr 05/10/22 11:32 05/10/22 11:57 05/10/22 12:35 Temperature 37.2 C 37.9 C H Temperature Source Temporal Artery Scan Oral Pulse Rate 102 H Pulse Rate [Apical] 92 H Respiratory Rate 20 18 Respiratory Effort / Characteristics Non-Labored Non-Labored Spontaneous Respiratory Depth Normal Normal Respiratory Pattern Regular Regular Blood Pressure 112/71 Blood Pressure [Right Arm] 123/72 Blood Pressure Mean 84 Blood Pressure Mean [Right Arm] 89 Blood Pressure Position [Right Arm] Sitting Pulse Oximetry 95 92 Oxygen Delivery Method Room Air Room Air Sepsis Recent Fever Within 48 Hours No Sepsis New/Unexplained Change in Mental Status No Sepsis Action Taken by Nursing No Action Required Laboratory Data Result diagrams: 05/10/22 11:45 05/10/22 11:45 Lab Results 05/10/22 05/10/22 05/10/22 Range/Units 11:45 11:45 11:45 WBC 6.51 (4.8-10.8) K/uL RBC 4.69 L (4.7-6.1) M/uL Hgb 13.9 L (14.0-18.0) g/dL Hct 42.0 (42-52) % MCV 89.6 (80-100) fL MCH 29.6 (25-34) pg MCHC 33.1 (32-36) g/dL RDW Std Deviation 48.4 H (36.4-46.3) fL RDW Coeff of Leela 14.9 H (11.5-14.5) % Plt Count 137 (130-400) K/uL MPV 10.9 H (7.4-10.4) fL Neutrophils % (Manual) 87.9 % Lymphocytes % (Manual) 1.7 % Monocytes % (Manual) 9.5 % Blast Cells % (Manual) 0.9 % Neutrophils # (Manual) 5.72 (1.4-6.5) K/uL Total Absolute Neuts 5.72 (1.4-6.5) K/uL Lymphocytes # (Manual) 0.11 L (1.2-3.4) K/uL Total Abs Lymphocytes 0.11 L (1.2-3.4) K/uL Monocytes # (Manual) 0.62 H (0.11-0.59) K/uL Blast Cells # (Man) 0.06 H (0-0) K/uL Blood Smear Review Dohle Bodies 3+ Sodium 139 (136-145) mmol/L Potassium 3.4 L (3.5-5.1) mmol/L Chloride 108 H (98-107) mmol/L Carbon Dioxide 22 (21-32) mmol/L Anion Gap 9 (3-11) BUN 38 H (6-23) mg/dl Creatinine 2.21 H (0.6-1.4) mg/dl Est Cr Clr Drug Dosing 37.5 ml/min Est GFR ( Amer) 32.8 ml/min Est GFR (Non-Af Amer) 28.3 ml/min BUN/Creatinine Ratio 17.2 (10-20) Glucose 122 H (70-99(Fasting)) mg/dl Lactate (0.4-2.0) mmol/L Calcium 9.1 (8.5-10.1) mg/dl Total Bilirubin 1.1 H (0.2-1.0) mg/dl AST 34 (13-39) U/L ALT 23 (7-52) U/L Alkaline Phosphatase 64 (34-104) U/L Troponin I High Sens 394.6 H* (0-20) pg/ml Total Protein 6.8 (6.0-8.3) gm/dl Albumin 4.0 (3.4-5.0) gm/dl Globulin 2.8 (2.5-4.0) gm/dl Albumin/Globulin Ratio 1.4 (0.9-2) Lipase 13 (11-82) U/L Procalcitonin 0.65 H (0-0.5) ng/ml Urine Color Urine Appearance (Clear) Urine pH (4.5-7.5) Ur Specific Advance (1.000-1.030) Urine Protein (Negative) Urine Glucose (UA) (Negative) Urine Ketones (Negative) Urine Blood (Negative) Urine Nitrite (Negative) Urine Bilirubin (Negative) Urine Urobilinogen (Negative) Ur Leukocyte Esterase (Negative) Urine WBC (Auto) (0-5) /hpf Urine RBC (Auto) (0-4) /hpf U Hyaline Cast (Auto) (0-5) /lpf U Epithel Cells (Auto) (0-5) /lpf Urine Bacteria (Auto) (Negative) Granular Casts (0) /lpf Urine Yeast SARS-CoV-2, RNA, NAAT (NEGATIVE) 05/10/22 05/10/22 05/10/22 Range/Units 11:54 12:49 13:43 WBC (4.8-10.8) K/uL RBC (4.7-6.1) M/uL Hgb (14.0-18.0) g/dL Hct (42-52) % MCV (80-100) fL MCH (25-34) pg MCHC (32-36) g/dL RDW Std Deviation (36.4-46.3) fL RDW Coeff of Leela (11.5-14.5) % Plt Count (130-400) K/uL MPV (7.4-10.4) fL Neutrophils % (Manual) % Lymphocytes % (Manual) % Monocytes % (Manual) % Blast Cells % (Manual) % Neutrophils # (Manual) (1.4-6.5) K/uL Total Absolute Neuts (1.4-6.5) K/uL Lymphocytes # (Manual) (1.2-3.4) K/uL Total Abs Lymphocytes (1.2-3.4) K/uL Monocytes # (Manual) (0.11-0.59) K/uL Blast Cells # (Man) (0-0) K/uL Blood Smear Review Dohle Bodies Sodium (136-145) mmol/L Potassium (3.5-5.1) mmol/L Chloride (98-107) mmol/L Carbon Dioxide (21-32) mmol/L Anion Gap (3-11) BUN (6-23) mg/dl Creatinine (0.6-1.4) mg/dl Est Cr Clr Drug Dosing ml/min Est GFR ( Amer) ml/min Est GFR (Non-Af Amer) ml/min BUN/Creatinine Ratio (10-20) Glucose (70-99(Fasting)) mg/dl Lactate 0.9 (0.4-2.0) mmol/L Calcium (8.5-10.1) mg/dl Total Bilirubin (0.2-1.0) mg/dl AST (13-39) U/L ALT (7-52) U/L Alkaline Phosphatase (34-104) U/L Troponin I High Sens (0-20) pg/ml Total Protein (6.0-8.3) gm/dl Albumin (3.4-5.0) gm/dl Globulin (2.5-4.0) gm/dl Albumin/Globulin Ratio (0.9-2) Lipase (11-82) U/L Procalcitonin (0-0.5) ng/ml Urine Color Yellow Urine Appearance Turbid A (Clear) Urine pH 5.0 (4.5-7.5) Ur Specific Advance 1.015 (1.000-1.030) Urine Protein 2+ H (Negative) Urine Glucose (UA) Negative (Negative) Urine Ketones Trace H (Negative) Urine Blood 2+ H (Negative) Urine Nitrite Negative (Negative) Urine Bilirubin Negative (Negative) Urine Urobilinogen Negative (Negative) Ur Leukocyte Esterase Trace H (Negative) Urine WBC (Auto) >30 H (0-5) /hpf Urine RBC (Auto) 0-4 (0-4) /hpf U Hyaline Cast (Auto) 10-30 H (0-5) /lpf U Epithel Cells (Auto) >30 H (0-5) /lpf Urine Bacteria (Auto) Negative (Negative) Granular Casts 10-20 H (0) /lpf Urine Yeast Not Reportable SARS-CoV-2, RNA, NAAT NEGATIVE (NEGATIVE) Administered Medications Doxycycline Hyclate 100 mg/ (Dextrose) 110 mls @ 50 mls/hr IV Q12H GITA Stop: 05/17/22 15:59 Last Admin: 05/10/22 16:39 Dose: 50 mls/hr Documented by: [id number] Insulin Aspart (Insulin Aspart Per Unit) 0 units SC ACHS GITA Stop: 06/09/22 16:29 Last Admin: 05/10/22 17:21 Dose: 2 units Documented by: [id number] Cosigned by: [id number] Discontinued Medications Acetaminophen (Acetaminophen 325 Mg Tab) 650 mg PO NOW STA Stop: 05/10/22 12:38 Last Admin: 05/10/22 13:02 Dose: 650 mg Documented by: [id number] Sodium Chloride (Nss 1000ml) 1,000 mls @ 999 mls/hr IV .Q1H1M ONE Stop: 05/10/22 13:23 Last Infusion: 05/10/22 14:29 Dose: 0 mls/hr Documented by: [id number] Admin: 05/10/22 13:01 Dose: 999 mls/hr Documented by: [id number] Infusion: 05/10/22 13:01 Dose: 999 mls/hr Documented by: [id number] Admin: 05/10/22 12:33 Dose: 999 mls/hr Documented by: [id number] Sodium Chloride (Nss 1000ml) 1,000 mls @ 999 mls/hr IV .Q1H1M ONE Stop: 05/10/22 13:37 Last Infusion: 05/10/22 14:29 Dose: 0 mls/hr Documented by: [id number] Admin: 05/10/22 13:01 Dose: 999 mls/hr Documented by: [id number] Ceftriaxone Sodium (Rocephin) 2,000 mg in 70 mls @ 140 mls/hr IV NOW STA Stop: 05/10/22 13:06 Last Infusion: 05/10/22 13:41 Dose: 0 mls/hr Documented by: [id number] Admin: 05/10/22 13:00 Dose: 140 mls/hr Documented by: [id number] Azithromycin 500 mg/ Dextrose 255 mls @ 125 mls/hr IV ONE ONE Stop: 05/10/22 15:35 Last Infusion: 05/10/22 16:50 Dose: 0 mls/hr Documented by: [id number] Admin: 05/10/22 14:38 Dose: 125 mls/hr Documented by: [id number] Imaging Data Radiologist's Impression: Chest X-Ray 05/10/22 11:39 XR chest 1V portable CLINICAL HISTORY: Atypical chest pain. COMPARISON STUDY: Chest radiograph August 15, 2021 FINDINGS: Hazy right midlung density measuring 9.3 cm in extent has developed since prior exam of August 15, 2021. Otherwise, lungs are clear. No evidence for interstitial pulmonary edema. Cardiomegaly is again noted. Left subclavian pacer/AICD is in place. There are median sternotomy wires. Postoperative findings within the cervical spine are incidentally noted. There is no pneumothorax or pleural effusion. IMPRESSION: Interval development of hazy right midlung density. Pneumonia is favored. Fissural fluid or asymmetric alveolar pulmonary edema are considered less likely but could appear similar. Follow-up chest radiographs to ensure resolution are recommended. ACT 112: Negative or not required by law. Electronically signed by: Dexter Ibarra M.D. 05/10/2022 12:[address] 05/10/22 11:59 CT head/brain wo con CLINICAL HISTORY: dizzy Technique: Contiguous axial CT images of the head were acquired from the base of the skull to the vertex without intravenous contrast administration. Images were viewed in brain, subdural and bone windows. Automated dose lowering techniques and/or adjustment according to patient size were utilized for this exam. Comparison: Comparison is made to CT head 07/29/2021 Findings: The ventricles, basal cisterns, and cerebral sulci are normal. There is no acute intracranial hemorrhage or evidence of acute territorial infarction. Neither mass effect, shift of the midline structures, nor abnormal extra-axial fluid collections are shown. Old infarcts are seen in the left insula, left rene praventricular white matter, and right occipital regions. Imaged portions of the paranasal sinuses and mastoid air cells are clear. The orbits appear normal. There are no acute fractures of the calvaria or scalp swelling. Impression: No acute intracranial hemorrhage, no evidence of acute territorial infarction or other acute intracranial disease process. Old stable encephalomalacia as above. ACT 112: Negative or not required by law. Electronically signed by: Edward Pierce M.D. 05/10/2022 1:39 PM Discharge Plan Visit Data Chief Complaint: Referred by Doctor Stated Complaint: HEART ISSUES, REFERRED BY DR WARNER Provider: Andrews Rivers Discharge Problem: Sepsis, Pneumonia, Elevated troponin, MCKENZIE (acute kidney injury), Acute hypokalemia Discharge Problem: Sepsis Qualifiers: Sepsis type: sepsis due to unspecified organism Sepsis acute organ dysfunction status: unspecified Qualified Code(s): A41.9 - Sepsis, unspecified organism Pneumonia Qualifiers: Pneumonia type: due to unspecified organism Laterality: right Lung location: unspecified part of lung Qualified Code(s): J18.9 - Pneumonia, unspecified organism
[2022-05-10 12:05] LABS: Hemoglobin 13.9 g/dL (14.0-18.0); Mean Corpuscular Hemoglobin 29.6 pg (25-34); Mean Corpuscular Hgb Conc 33.1 g/dL (32-36); Mean Corpuscular Volume 89.6 fL (80-100); Mean Platelet Volume 10.9 fL (7.4-10.4); Platelet Count 137 K/uL (130-400); RDW Coefficient of Variation 14.9 % (11.5-14.5); RDW Standard Deviation 48.4 fL (36.4-46.3); Red Blood Count 4.69 M/uL (4.7-6.1); White Blood Count 6.51 K/uL (4.8-10.8)
[2022-05-10 12:26] LABS: Albumin Globulin Ratio 1.4 (0.9-2); BUN Creatinine Ratio 17.2 (10-20); Bilirubin,Total 1.1 mg/dl (0.2-1.0); Calcium 9.1 mg/dl (8.5-10.1); Creatinine Clr Calc Pharmacy 37.5 ml/min; Est GFR (African American) 32.8 ml/min; Est GFR (Non-African American) 28.3 ml/min; Globulin 2.8 gm/dl (2.5-4.0); Potassium 3.4 mmol/L (3.5-5.1); Total Protein 6.8 gm/dl (6.0-8.3)
[2022-05-10 12:33] LABS: Troponin I High Sensitivity 394.6 pg/ml (0-20)
[2022-05-10] MEDS: SODIUM CHLORIDE 0.9% 1000ML 1,000 ML IV ONE ×2 (12:33→13:01)
[2022-05-10] MEDS ORDERED: cefTRIAXone SODIUM 2,000 MG/70 ML BAG IV STA (12:37)
[2022-05-10] MEDS ORDERED: SODIUM CHLORIDE 0.9% 1000ML 1,000 ML IV ONE (12:37)
[2022-05-10] MEDS ORDERED: ACETAMINOPHEN 325 MG TAB PO STA (12:37)
--- NOTE | 2022-05-10 12:40 | XRay Report ---
XR chest 1V portable CLINICAL HISTORY: Atypical chest pain. COMPARISON STUDY: Chest radiograph August 15, 2021 FINDINGS: Hazy right midlung density measuring 9.3 cm in extent has developed since prior exam of Sep tem2020. Otherwise, lungs are clear. No evidence for interstitial pulmonary edema. Cardiomega ly is again noted. Left subclavian pacer/AICD is in place. There are median sternotomy wires. Postope rative findings within the cervical spine are incidentally noted. There is no pneumothorax or pleural effusion. IMPRESSION: Interval development of hazy right midlung density. Pneumonia is favored. Fissural fluid or asymmetric alveolar pulmonary edema are considered less likely but could appear similar. Follow-u p chest radiographs to ensure resolution are recommended. ACT 112: Negative or not required by law. Electronically signed by: Dexter Ibarra M.D. 05/10/2022 12:38 PM
[2022-05-10 13:05] LABS: Dohle Bodies 3+
[2022-05-10 13:06] LABS: ALC (manual) 0.11 K/uL (1.2-3.4); ANC (manual) 5.72 K/uL (1.4-6.5); Blast # (manual) 0.06 K/uL (0-0); Blast Cells % (manual) 0.9 %; Lymphocytes # (manual) 0.11 K/uL (1.2-3.4); Lymphocytes % (manual) 1.7 %; Monocytes # (manual) 0.62 K/uL (0.11-0.59); Monocytes % (manual) 9.5 %; Neutrophils # (manual) 5.72 K/uL (1.4-6.5); Neutrophils % (manual) 87.9 %
[2022-05-10] MEDS ORDERED: AZITHROMYCIN 500 MG in DEXTROSE 5% 250 ML IV ONE (13:33)
--- NOTE | 2022-05-10 13:41 | CT Scan Report ---
CT head/brain wo con CLINICAL HISTORY: dizzy Technique: Contiguous axial CT images of the head were acquired from the base of the skull to the shae scooter without intravenous contrast administration. Images were viewed in brain, subdural and bone [facility]. Automated dose lowering techniques and/or adjustment according to patient size were utilized for this exam. Comparison: Comparison is made to CT head 07/29/2021 Findings: The ventricles, basal cisterns, and cerebral sulci are normal. There is no acute intracranial hemorrh age or evidence of acute territorial infarction. Neither mass effect, shift of the midline structures , nor abnormal extra-axial fluid collections are shown. Old infarcts are seen in the left insula, le ft supraventricular white matter, and right occipital regions. Imaged portions of the paranasal sinuses and mastoid air cells are clear. The orbits appear normal. There are no acute fractures of the calvaria or scalp swelling. Impression: No acute intracranial hemorrhage, no evidence of acute territorial infarction or other acute intracra nial disease process. Old stable encephalomalacia as above. ACT 112: Negative or not required by law. Electronically signed by: Edward Pierce M.D. 05/10/2022 1:39 PM
[2022-05-10 14:49] LABS: Appearance Urine Turbid (Clear); Bacteria Urine Automated Negative (Negative); Bilirubin Urine Negative (Negative); Blood Urine 2+ (Negative); Color Urine Yellow; Epithelial Cell Urine Auto >30 /lpf (0-5); Glucose Urine UA Negative (Negative); Ketones Urine Trace (Negative); Leukocyte Esterase Urine Trace (Negative); Nitrite Urine Negative (Negative); Protein Urine 2+ (Negative); RBC Urine Automated 0-4 /hpf (0-4); Specific Gravity Urine 1.015 (1.000-1.030); Urobilinogen Urine Negative (Negative); WBC Urine Automated >30 /hpf (0-5)
--- NOTE | 2022-05-10 15:22 | Communication Note ---
Date of Service: May 10, 2022 History and physical exam performed by me Patient has been feeling sick and weak over the past week, reports rhinorrhea, congestion and some mild cough, increased weakness. Fell yesterday at an event in [place], described that legs gave out on him. Was seen at the ER at [place] and was discharged once declined that he had appointment with cardiol ogist according to . Patient mumbles, has right-sided facial droop. reports that this is chronic but usually worsens whenever he is sick. On exam, General: Elderly man in no acute distress Eyes: PERRL, conjunctivae normal, not pale, anicteric sclerae, EOM intact bilaterally ENMT: External ear and nose normal, oropharynx normal Respiratory: Normal respiratory effort, no respiratory distress, lungs clear to auscultation, no crackles and no wheezes Cardiovascular: RRR S1 S2 Chest (Breasts): Chest: normal inspection of chest Gastrointestinal (Abdomen): Abdomen is not distended, soft, non-tender to palpation, no guarding, no palpable hepatosplenomegaly, normal bowel sounds Musculoskeletal: No cyanosis or clubbing, all extremities motor strength 5/5 Neurologic: Alert and oriented x 3, mumbles, +right facial droop ( reported chronic but worsens with illness) Labs notable for potassium of 3.4, chloride of 108, creatinine of 2.21 [baseline of 1.4], troponin at bedtime of 394.6 UA showed trace leukocyte esterase, WBC of more than 30 CT head did not show any acute intracranial hemorrhage or infarct. Showed old stable encephalomalacia. Chest x-ray noted interval development of hazy right midline density. Pneumonia MCKENZIE on CKD 3 Elevated troponins Start ceftriaxone and doxycycline Get procalcitonin 2 L IV fluids ordered in ER. Will monitor after this and allow patient to drink by mouth. Monitor renal function Last echo reviewed showed EF of 30% Troponin slightly elevated in setting of acute illness plus acute on chronic kidney disease. Will trend. ER had reported short run of Vtach on ICD Cards consult PT/OT eval Can get MRI to rule out CVA considering risk factors Agree with plans as detailed by Pennie MAGAÑA
[2022-05-10] MEDS ORDERED: GLUCOSE 10 TABS/TUBE PO PRN (15:27)
[2022-05-10] MEDS ORDERED: GLUCAGON FOR INJ 1 MG VIAL SQ PRN (15:27)
[2022-05-10] MEDS ORDERED: ALBUT/IPRATROP 3MG/0.5MG NEB 3 ML VIAL NEB PRN (15:27)
[2022-05-10] MEDS ORDERED: GLUCOSE 40% GEL 15 GM TUBE PO PRN (15:27)
[2022-05-10] MEDS ORDERED: CARBOHYDRATES FOR HYPOGLYCEMIA PO PRN (15:27)
[2022-05-10] MEDS ORDERED: DEXTROSE 50% 50 ML SYRINGE IV PRN (15:27)
[2022-05-10] MEDS ORDERED: ACETAMINOPHEN 325 MG TAB PO PRN (15:27)
--- NOTE | 2022-05-10 16:13 | Cardiology Consultation ---
Date of Consultation May 10, 2022 Assessment & Plan (1) Pneumonia: (2) MCKENZIE (acute kidney injury): (3) Cardiomyopathy, ischemic: Patient previously trialed on Entresto and beta-bill but difficulties with hypotension complications resulted in discontinuation. Patient currently on Florinef (4) Elevated troponin: (5) Presence of combination internal cardiac defibrillator (ICD) and pacemaker: Complex 76-year-old male with known ischemic cardiomyopathy presents with weakness fever and chills probable pneumonia on chest x-ray. Laboratory studies reflect acute on chronic renal insufficiency and elevated troponin issues addressed are as follows 1. Acute weakness and fatigue possibly in association with febrile illness/pneumonia. Patient being treated and blood cultures ordered 2. Acute on chronic renal insufficiency 3. Ischemic cardiomyopathy with indwelling biventricular pacer defibrillator, no acute arrhythmias. Patient previously intolerant of Entresto, CIRO inhibitor 4. Moderate LV dysfunction 5. Elevated troponin Plan: Treat underlying infectious process. Blood cultures ordered cautious hydration given renal insufficiency as ordered We will add low-dose beta-bill with metoprolol succinate 12.5 mg/day given baseline heart rate of 100 (sinus mechanism) and elevated troponin. We will follow cautiously given past difficulties with orthostasis Echocardiogram to be reviewed in a.m. Follow troponins. Likely elevated secondary to acute renal insufficiency ischemic heart disease not completely excluded given history History of Present Illness Reason for Consultation: Weakness, fatigue, elevated troponin Requesting Physician: Gi Quintero MD Attending Physician: Gi Quintero MD History of Present Illness Patient is a complex 76-year-old male with ongoing issues which include 1. Coronary artery disease s/p CABG x2 with a FOLEY to the LAD and vein graft to the OM. Saphenous vein graft known occluded with patent left internal mammary artery graft by urgent cath 2018, drug-eluting stent to the mid and distal right coronary artery placed 3.Nonsustained ventricular tachycardia status post pacer defibrillator implantation July 2021 [employer] [facility] COORDINATOR-D, BiV device with left bundle pacing 4. Ischemic cardiomyopathy, EF 30-34%, NYHA class3 5. Carotid artery stenosis, moderate left internal carotid improved on most recent study of 02/16/2022 6. History of CVA 7. Peripheral arterial disease with failed PTCA of the arteries of his hip under questionable circumstances at an outside facility, normal exercise vascular leg Doppler 10/31/2021 8. Paroxysmal atrial fibrillation,s/p PABLO/DCCV 03/16/2021, without recurrence 9. Diabetestype 2 10. No flow in bilateral middle cerebral arteries with collateralization suggestive of chronic high-grade stenosis and/or occlusion 11.Intermittent LBBB 12. Iron deficiency anemia Patient presents this admission noting not feeling well for 2 or 3 days and yesterday developing marked fatigue while walking up a hill and heat. Patient collapsed without syncope "legs quit". Evaluated in the emergency room in [facility]. Patient discharged without diagnosis to follow-up with cardiology clinic today. Patient notes no chest pains or tachypalpitations. describes fevers to a greatest 102 yesterday with chills and rigors last evening. Mild cough nonproductive. No overt bleeding issues. No tachypalpitations. No defibrillator activation. Taking usual medications as prescribed. No signs or symptoms of fluid retention with weight gradually trending downward over the past 6 months with overall weight loss greater than 20 pounds. No melena medication dysuria hematuria no sleep disturbance. Currently without acute complaint but has residual mild dysarthria from remote stroke, feels weak EKG: Sinus mechanism at 100 bpm with atrial sensing, ventricular pacing Chest x-ray infiltrate right chest/pneumonia Allergies Allergy/AdvReac Type Severity Reaction Status Date / Time No Known Allergies Allergy Verified 10/11/21 08:42 Home Medications Medication Instructions Recorded Confirmed Type isosorbide mononitrate 30 mg 30 mg PO QAM #0 tab 08/12/14 05/10/22 History tablet,extended release 24 hr metformin 500 mg tablet 500 mg PO BID #0 tab 02/10/17 05/10/22 History acetaminophen 500 mg tablet 1,000 mg PO UD PRN #0 tab 08/15/17 05/10/22 History (Acetaminophen Extra Strength) nitroglycerin 0.4 mg sublingual 0.4 mg SUBLINGUAL Q5M PRN #0 08/15/17 05/10/22 History tablet rosuvastatin 40 mg tablet 40 mg PO HS 03/30/19 05/10/22 History tamsulosin 0.4 mg capsule 0.4 mg PO DAILY 03/30/19 05/10/22 History clopidogrel 75 mg tablet 75 mg PO DAILY 03/15/21 05/10/22 History montelukast 10 mg tablet 10 mg PO DAILY 03/15/21 05/10/22 History cyanocobalamin (vitamin B-12) 5,000 mcg SUBLINGUAL DAILY 07/29/21 05/10/22 History 5,000 mcg sublingual tablet (Vitamin B-12) ezetimibe 10 mg tablet 10 mg PO DAILY 07/29/21 05/10/22 History zysrkobi-lps-hnvpx acid 0.4 1 tab PO DAILY 07/29/21 05/10/22 History mg-lycopene 300 mcg-lutein 250 mcg tablet (Centrum Silver) indomethacin 50 mg capsule 50 mg PO TID PRN 08/15/21 05/10/22 History fludrocortisone 0.1 mg tablet 0.1 mg PO DAILY 05/10/22 05/10/22 History pregabalin 75 mg capsule 75 mg PO TID 05/10/22 05/10/22 History Patient History Medical History Atrial fibrillation with rapid ventricular response Chronic bundle branch block LBBB CKD (chronic kidney disease), stage III Coronary artery disease 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 CVA (cerebral vascular accident) Diabetes Diabetes mellitus, type 2 Dyslipidemia GERD (gastroesophageal reflux disease) GERD (gastroesophageal reflux disease) Gout HTN (hypertension) Hypertension Paroxysmal A-fib TIA (transient ischemic attack) Surgical History H/O umbilical hernia repair x2 History of coronary artery stent placement LAD and RCA 2019 History of Amie fundoplication S/P CABG x 2 S/P repair of paraesophageal hernia Status post cataract extraction Status post tonsillectomy Family History Mother Stroke Denies family history of Crohn's disease Colorectal cancer Ulcerative colitis Social History Smoking Status: Former smoker Second Hand Exposure: No; Do You Dip or Chew Tobacco: No; Hx Alcohol Use: Yes Alcohol type: beer Hx Substance Use: No Preferred Language: Luxembourgish Communication Ability: Effective Communication Ability Comment: [phone] Production Sound Mixer Required: No Beliefs That Will Affect Care: None Current Living Situation: Spouse current occupation: Retired Feels Safe at Home: Yes Safety Concerns: Feels Safe At This Time Assistive Devices: None Review of Systems Review of Systems: All systems reviewed & are unremarkable except as noted in HPI & below Physical Exam Constitutional: well nourished; no acute distress Eyes: PERRL, conjunctivae normal, anicteric sclerae Neck: trachea midline, no thyromegaly Respiratory: Auscultation: + diminished lung sounds Cardiovascular: Rate/Rhythm: regular rate and regular rhythm Heart Sounds: normal S1 and normal S2; no murmur Vessels: no JVD Extremities: no edema Chest (Breasts): Chest: + pacemaker (Pacer defibrillator left chest without irritation) Gastrointestinal (Abdomen): normal bowel sounds, soft, nontender, no hepatosplenomegaly Musculoskeletal: no cyanosis or clubbing, extremities motor strength 5/5 Results & Data ([facility]) Vital Signs (Past 12 Hours) Vital Signs Temp Pulse Pulse Resp BP BP Pulse Ox 05/10/22 12:35 37.9 C H 05/10/22 11:57 92 H 18 123/72 92 05/10/22 11:32 37.2 C 102 H 20 112/71 95 Laboratory Results Laboratory Results - last 24 hr 05/10/22 05/10/22 05/10/22 11:45 11:45 11:54 WBC 6.51 RBC 4.69 L Hgb 13.9 L Hct 42.0 MCV 89.6 MCH 29.6 MCHC 33.1 RDW Std Deviation 48.4 H RDW Coeff of Leela 14.9 H Plt Count 137 MPV 10.9 H Neutrophils % (Manual) 87.9 Lymphocytes % (Manual) 1.7 Monocytes % (Manual) 9.5 Blast Cells % (Manual) 0.9 Neutrophils # (Manual) 5.72 Total Absolute Neuts 5.72 Lymphocytes # (Manual) 0.11 L Total Abs Lymphocytes 0.11 L Monocytes # (Manual) 0.62 H Blast Cells # (Man) 0.06 H Blood Smear Review Dohle Bodies 3+ Sodium 139 Potassium 3.4 L Chloride 108 H Carbon Dioxide 22 Anion Gap 9 BUN 38 H Creatinine 2.21 H Est Cr Clr Drug Dosing 37.5 Est GFR ( Amer) 32.8 Est GFR (Non-Af Amer) 28.3 BUN/Creatinine Ratio 17.2 Glucose 122 H Lactate Calcium 9.1 Total Bilirubin 1.1 H AST 34 ALT 23 Alkaline Phosphatase 64 Troponin I High Sens 394.6 H* Total Protein 6.8 Albumin 4.0 Globulin 2.8 Albumin/Globulin Ratio 1.4 Lipase 13 Urine Color Urine Appearance Urine pH Ur Specific Fate Urine Protein Urine Glucose (UA) Urine Ketones Urine Blood Urine Nitrite Urine Bilirubin Urine Urobilinogen Ur Leukocyte Esterase Urine WBC (Auto) Urine RBC (Auto) U Hyaline Cast (Auto) U Epithel Cells (Auto) Urine Bacteria (Auto) Granular Casts Urine Yeast SARS-CoV-2, RNA, NAAT NEGATIVE 05/10/22 05/10/22 12:49 13:43 WBC RBC Hgb Hct MCV MCH MCHC RDW Std Deviation RDW Coeff of Leela Plt Count MPV Neutrophils % (Manual) Lymphocytes % (Manual) Monocytes % (Manual) Blast Cells % (Manual) Neutrophils # (Manual) Total Absolute Neuts Lymphocytes # (Manual) Total Abs Lymphocytes Monocytes # (Manual) Blast Cells # (Man) Blood Smear Review Dohle Bodies Sodium Potassium Chloride Carbon Dioxide Anion Gap BUN Creatinine Est Cr Clr Drug Dosing Est GFR ( Amer) Est GFR (Non-Af Amer) BUN/Creatinine Ratio Glucose Lactate 0.9 Calcium Total Bilirubin AST ALT Alkaline Phosphatase Troponin I High Sens Total Protein Albumin Globulin Albumin/Globulin Ratio Lipase Urine Color Yellow Urine Appearance Turbid A Urine pH 5.0 Ur Specific Fate 1.015 Urine Protein 2+ H Urine Glucose (UA) Negative Urine Ketones Trace H Urine Blood 2+ H Urine Nitrite Negative Urine Bilirubin Negative Urine Urobilinogen Negative Ur Leukocyte Esterase Trace H Urine WBC (Auto) >30 H Urine RBC (Auto) 0-4 U Hyaline Cast (Auto) 10-30 H U Epithel Cells (Auto) >30 H Urine Bacteria (Auto) Negative Granular Casts 10-20 H Urine Yeast Not Reportable SARS-CoV-2, RNA, NAAT Diagnostic Findings Chest x-ray 05/10/2022 IMPRESSION: Interval development of hazy right midlung density. Pneumonia is favored. Fissural fluid or asymmetric alveolar pulmonary edema are considered less likely but could appear similar. Follow-up chest radiographs to ensure resolution are recommended.
[2022-05-10] MEDS: DOXYCYCLINE HYCLATE 100 MG in DEXTROSE 5% 100 ML IV SCH (16:39)
[2022-05-10] MEDS: INSULIN ASPART PER UNIT SC SCH ×2 (17:21→21:58)
[2022-05-10] MEDS: METOPROLOL SUCC 25MG EXT REL TAB PO SCH (17:53)
--- NOTE | 2022-05-10 18:24 | Electrocardiogram Report ---
Test Reason : Blood Pressure : / mmHG Vent. Rate : 100 BPM Atrial Rate : 100 BPM P-R Int : 120 ms QRS Dur : 156 ms QT Int : 384 ms P-R-T Axes : 103 -14 139 degrees QTc Int : 495 ms Atrial-sensed ventricular-paced rhythm Premature ventricular complexes Abnormal ECG When compared with ECG of 15-AUG-2021 12:27, Vent. rate has increased BY 40 BPM Confirmed by Steven Hensley ([id number]) on 05/10/2022 6:23:50 PM Referred By: Mukul Corey Confirmed By:Juan Hensley
--- NOTE | 2022-05-10 19:48 | History & Physical Report ---
Date of Service May 10, 2022 Assessment & Plan (1) Pneumonia: Plan: Admit to telemetry Patient presenting by referral of outpatient cardiology office for evaluation of generalized weakness, illness, fall yesterday In the ED, CXR showing right middle lobe pneumonia Currently does not meet sepsis criteria Procalcitonin 0.65 S/p IV ceftriaxone and azithromycin in the ED. Continue with IV doxycycline and IV ceftriaxone. Blood and sputum cultures Pulmonary toilet with nebs, flutter valve, incentive spirometer (2) Acute kidney injury superimposed on CKD: (3) CKD (chronic kidney disease), stage III: Plan: Creatinine 2.2, baseline ~ 1.4 Likely prerenal due to acute illness /dehydration from heat exposure yesterday Received 1 L IVF in the ED, will hold on additional for now due to ischemic ca rdiomyopathy, EF 30-34% Monitor renal functions (4) Elevated troponin: (5) Coronary artery disease: Plan: HS trop 394.6 --> 441.9 No reports of chest pain, EKG demonstrates NSR, ventricular paced rhythm May be due to demand ischemia in the setting of acute illness and/or underlying renal insufficiency Continue to trend troponin Cardiology consulted --added low-dose metoprolol Resting echo Continue nitrate, Plavix, statin, Zetia (6) CVA (cerebral vascular accident): Plan: History of with chronic right-sided facial droop Family believes drooping may be worse than baseline and also speech is not as clear Brain MRI ordered Continue Plavix, statin, Zetia (7) Cardiomyopathy, ischemic: (8) Presence of combination internal cardiac defibrillator (ICD) and pacemaker: Plan: EF 30 to 35% on echo 09/2021 Has been intolerant to medications due to ongoing orthostasis Not on routine diuretics Monitor volume status closely (9) Paroxysmal A-fib: Plan: s/p cardioversion and maintained NSR -- not currently on any rate or rhythm controlling medications Low-dose metoprolol added by cardiology as above No anticoagulation due to GI bleeding history (10) Orthostasis: Plan: On Florinef (11) Diabetes mellitus, type 2: Plan: Hgb A1c 6.2 04/2022 Hold oral agents and utilize NovoLog per protocol while hospitalized (12) DVT prophylaxis: Plan: SQ heparin Admission and Anticipated Discharge Date Admission Date: May 10, 2022 History of Present Illness Chief Complaint: Generalized Weakness Primary Care Provider: Chava Bell MD 76-year-old male with PMH DM type II, CAD, ischemic cardiomyopathy EF 30 to 34%, s/p BiV pacer defibrillator, history of CVA, HTN, CKD stage III, paroxysmal atrial fibrillation not anticoagulated due to history of GI bleeding, and other problems to below who presents to the ED by referral of cardiology office for evaluation of generalized weakness, illness. Patient reports that he was at a horse show to watch his granddaughter yesterday. Notes that it was very hot and humid out. Reports that while he was walking up a hill, his legs gave out from under him and he fell to the ground. Patient was taken to an ER in [place]. is at the bedside who states the patient had a limited work-up and was discharged home to follow-up with his outpatient ruby on rails software developer today. Patient reports that he has not been feeling well for about the past 1 week. He has had worsening generalized weakness, rhinorrhea, congestion, mild cough. Has history of CVA with right facial droop. Family believes this may be worse than normal and also speech is not as clear. No fevers or chills. Denies chest pain or shortness of breath. No lightheadedness, dizziness, diaphoresis, syncopal events. Denies abdominal pain, nausea, vomiting, diarrhea. No urinary symptoms. In the ED, patient is hemodynamically stable. Labs show creatinine 2.2 (baseline ~ 1.4). HS troponin 394.6. EKG shows NSR, ventricular paced. CXR shows a right middle lobe pneumonia. Patient was given IV azithromycin, IV ceftriaxone, IVF. Allergies Allergy/AdvReac Type Severity Reaction Status Date / Time No Known Allergies Allergy Verified 10/11/21 08:42 Home Medications Medication Instructions Recorded Confirmed Type isosorbide mononitrate 30 mg 30 mg PO QAM #0 tab 08/12/14 05/10/22 History tablet,extended release 24 hr metformin 500 mg tablet 500 mg PO BID #0 tab 02/10/17 05/10/22 History acetaminophen 500 mg tablet 1,000 mg PO UD PRN #0 tab 08/15/17 05/10/22 History (Acetaminophen Extra Strength) nitroglycerin 0.4 mg sublingual 0.4 mg SUBLINGUAL Q5M PRN #0 08/15/17 05/10/22 History tablet rosuvastatin 40 mg tablet 40 mg PO HS 03/30/19 05/10/22 History tamsulosin 0.4 mg capsule 0.4 mg PO DAILY 03/30/19 05/10/22 History clopidogrel 75 mg tablet 75 mg PO DAILY 03/15/21 05/10/22 History montelukast 10 mg tablet 10 mg PO DAILY 03/15/21 05/10/22 History cyanocobalamin (vitamin B-12) 5,000 mcg SUBLINGUAL DAILY 07/29/21 05/10/22 History 5,000 mcg sublingual tablet (Vitamin B-12) ezetimibe 10 mg tablet 10 mg PO DAILY 07/29/21 05/10/22 History crgmlfpz-yvh-zkilj acid 0.4 1 tab PO DAILY 07/29/21 05/10/22 History mg-lycopene 300 mcg-lutein 250 mcg tablet (Centrum Silver) indomethacin 50 mg capsule 50 mg PO TID PRN 08/15/21 05/10/22 History fludrocortisone 0.1 mg tablet 0.1 mg PO DAILY 05/10/22 05/10/22 History pregabalin 75 mg capsule 75 mg PO TID 05/10/22 05/10/22 History Past Med/Surg History Medical History (Updated 05/10/22 @ 19:37 by GÓMEZ Chu) Atrial fibrillation with rapid ventricular response Chronic bundle branch block LBBB CKD (chronic kidney disease), stage III Coronary artery disease 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 CVA (cerebral vascular accident) Diabetes Diabetes mellitus, type 2 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 Dyslipidemia GERD (gastroesophageal reflux disease) GERD (gastroesophageal reflux disease) Gout HTN (hypertension) Hypertension Orthostasis Osteoarthritis of left knee Paroxysmal A-fib TIA (transient ischemic attack) Surgical History H/O umbilical hernia repair x2 History of coronary artery stent placement LAD and RCA 2019 History of Amie fundoplication S/P CABG x 2 S/P repair of paraesophageal hernia Status post cataract extraction Status post tonsillectomy Family History Mother Stroke Denies family history of Crohn's disease Colorectal cancer Ulcerative colitis Social History Smoking Status: Former smoker Second Hand Exposure: No; Do You Dip or Chew Tobacco: No; Hx Alcohol Use: Yes Alcohol type: beer Hx Substance Use: No Preferred Language: Nepali Communication Ability: Effective Communication Ability Comment: [phone] County Supervisor Required: No Beliefs That Will Affect Care: None Current Living Situation: Spouse current occupation: Retired Feels Safe at Home: Yes Safety Concerns: Feels Safe At This Time Assistive Devices: None Review of Systems Review of Systems: ROS per HPI, all other systems reviewed and negative Physical Exam Physical Exam: please refer to Dr. Quintero's addendum for physical exam Results & Data Results & Data ([facility]) Vital Signs (Past 12 Hours) Vital Signs Temp Pulse Pulse Resp BP BP Pulse Ox 05/10/22 17:55 66 107/61 05/10/22 17:00 67 21 116/66 94 05/10/22 16:47 71 117/70 05/10/22 16:38 71 24 117/70 95 05/10/22 16:00 63 18 111/63 96 05/10/22 15:31 37.4 C 65 24 107/65 96 05/10/22 15:27 05/10/22 15:24 66 17 107/65 96 05/10/22 15:00 70 23 114/64 05/10/22 12:35 37.9 C H 05/10/22 11:57 92 H 18 123/72 92 05/10/22 11:32 37.2 C 102 H 20 112/71 95 Pulse Ox 05/10/22 17:55 05/10/22 17:00 05/10/22 16:47 05/10/22 16:38 05/10/22 16:00 05/10/22 15:31 05/10/22 15:27 94 05/10/22 15:24 05/10/22 15:00 05/10/22 12:35 05/10/22 11:57 05/10/22 11:32 Laboratory Results Short CBC 05/10/22 05/10/22 05/10/22 Range/Units 11:45 11:45 18:01 WBC 6.51 (4.8-10.8) K/uL Hgb 13.9 L (14.0-18.0) g/dL Hct 42.0 (42-52) % Plt Count 137 (130-400) K/uL Troponin I High Sens 394.6 H* 441.9 H* (0-20) pg/ml BMP 05/10/22 11:45 Sodium 139 Potassium 3.4 L Chloride 108 H Carbon Dioxide 22 BUN 38 H Creatinine 2.21 H Glucose 122 H Calcium 9.1 Liver Function 05/10/22 Range/Units 11:45 Total Bilirubin 1.1 H (0.2-1.0) mg/dl AST 34 (13-39) U/L ALT 23 (7-52) U/L Alkaline Phosphatase 64 (34-104) U/L Albumin 4.0 (3.4-5.0) gm/dl Urine 05/10/22 Range/Units 13:43 Urine Color Yellow Urine Appearance Turbid A (Clear) Urine pH 5.0 (4.5-7.5) Ur Specific Jennings 1.015 (1.000-1.030) Urine Protein 2+ H (Negative) Urine Glucose (UA) Negative (Negative) Diagnostic Findings Chest X-Ray 05/10/22 11:39 XR chest 1V portable CLINICAL HISTORY: Atypical chest pain. COMPARISON STUDY: Chest radiograph August 15, 2021 FINDINGS: Hazy right midlung density measuring 9.3 cm in extent has developed since prior exam of August 15, 2021. Otherwise, lungs are clear. No evidence for interstitial pulmonary edema. Cardiomegaly is again noted. Left subclavian pacer/AICD is in place. There are median sternotomy wires. Postoperative findings within the cervical spine are incidentally noted. There is no pneumothorax or pleural effusion. IMPRESSION: Interval development of hazy right midlung density. Pneumonia is favored. Fissural fluid or asymmetric alveolar pulmonary edema are considered less likely but could appear similar. Follow-up chest radiographs to ensure resolution are recommended. ACT 112: Negative or not required by law. Electronically signed by: Dexter Ibarra M.D. 05/10/2022 12:[address] 05/10/22 11:59 CT head/brain wo con CLINICAL HISTORY: dizzy Technique: Contiguous axial CT images of the head were acquired from the base of the skull to the vertex without intravenous contrast administration. Images were viewed in brain, subdural and bone windows. Automated dose lowering techniques and/or adjustment according to patient size were utilized for this exam. Comparison: Comparison is made to CT head 07/29/2021 Findings: The ventricles, basal cisterns, and cerebral sulci are normal. There is no acute intracranial hemorrhage or evidence of acute territorial infarction. Neither mass effect, shift of the midline structures, nor abnormal extra-axial fluid collections are shown. Old infarcts are seen in the left insula, left supraventricular white matter, and right occipital regions. Imaged portions of the paranasal sinuses and mastoid air cells are clear. The orbits appear normal. There are no acute fractures of the calvaria or scalp swelling. Impression: No acute intracranial hemorrhage, no evidence of acute territorial infarction or other acute intracranial disease process. Old stable encephalomalacia as above. ACT 112: Negative or not required by law. Electronically signed by: Edward Pierce M.D. 05/10/2022 1:39 PM Code Status & VTE Plan Code Status Patient is a full code as per Dr. Quintero's discussion with him. VTE Prophylaxis Plan VTE Prophylaxis will be ordered: No Supervising Physician Co-Signing Physician Notes Date of Service: May 10, 2022 History and physical exam performed by me Patient has been feeling sick and weak over the past week, reports rhinorrhea, congestion and some mild cough, increased weakness. Fell yesterday at an event in [place], described that legs gave out on him. Was seen at the ER at [place] and was discharged once declined that he had appointment with ruby on rails software developer according to . Patient pino, has right-sided facial droop. reports that this is chronic but usually worsens whenever he is sick. On exam, General: Elderly man in no acute distress Eyes: PERRL, conjunctivae normal, not pale, anicteric sclerae, EOM intact bilaterally ENMT: External ear and nose normal, oropharynx normal Respiratory: Normal respiratory effort, no respiratory distress, lungs clear to auscultation, no crackles and no wheezes Cardiovascular: RRR S1 S2 Chest (Breasts): Chest: normal inspection of chest Gastrointestinal (Abdomen): Abdomen is not distended, soft, non-tender to palpation, no guarding, no palpable hepatosplenomegaly, normal bowel sounds Musculoskeletal: No cyanosis or clubbing, all extremities motor strength 5/5 Neurologic: Alert and oriented x 3, mumbles, +right facial droop ( reported chronic but worsens with illness) Labs notable for potassium of 3.4, chloride of 108, creatinine of 2.21 [baseline of 1.4], troponin at bedtime of 394.6 UA showed trace leukocyte esterase, WBC of more than 30 CT head did not show any acute intracranial hemorrhage or infarct. Showed old stable encephalomalacia. Chest x-ray noted interval development of hazy right midline density. Pneumonia MCKENZIE on CKD 3 Elevated troponins Start ceftriaxone and doxycycline Get procalcitonin 2 L IV fluids ordered in ER. Will monitor after this and allow patient to drink by mouth. Monitor renal function Last echo reviewed showed EF of 30% Troponin slightly elevated in setting of acute illness plus acute on chronic kidney disease. Will trend. ER had reported short run of Vtach on ICD Cards consult PT/OT eval Can get MRI to rule out CVA considering risk factors Agree with plans as detailed by Pennie MAGAÑA (1) Pneumonia Laterality: right Lung location: unspecified part of lung Pneumonia type: due to unspecified organism Qualified Code(s): J18.9 - Pneumonia, unspecified organism
[2022-05-10] MEDS: ROSUVASTATIN CALCIUM 20 MG TAB PO SCH (21:55)
[2022-05-10] MEDS: PREGABALIN 75 MG CAP PO SCH (21:58)
[2022-05-11] MEDS: DOXYCYCLINE HYCLATE 100 MG in DEXTROSE 5% 100 ML IV SCH ×2 (04:00→17:23)
[2022-05-11 05:08] LABS: Hematocrit (blood only) 37.6 % (42-52); Hemoglobin 12.6 g/dL (14.0-18.0); Mean Corpuscular Hemoglobin 30.3 pg (25-34); Mean Corpuscular Hgb Conc 33.5 g/dL (32-36); Mean Corpuscular Volume 90.4 fL (80-100); Mean Platelet Volume 10.9 fL (7.4-10.4); Platelet Count 129 K/uL (130-400); RDW Coefficient of Variation 14.9 % (11.5-14.5); RDW Standard Deviation 49.8 fL (36.4-46.3); Red Blood Count 4.16 M/uL (4.7-6.1); White Blood Count 5.71 K/uL (4.8-10.8)
[2022-05-11 05:36] LABS: BUN Creatinine Ratio 15.9 (10-20); Calcium 8.6 mg/dl (8.5-10.1); Creatinine Clr Calc Pharmacy 38.8 ml/min; Est GFR (African American) 34.1 ml/min; Est GFR (Non-African American) 29.4 ml/min; Potassium 3.3 mmol/L (3.5-5.1)
[2022-05-11] MEDS: INSULIN ASPART PER UNIT SC SCH ×4 (08:09→21:08)
[2022-05-11] MEDS ORDERED: POTASSIUM CHLORIDE 10 MEQ TABCR PO STA (08:38)
[2022-05-11] MEDS: CLOPIDOGREL BISULFATE 75 MG TAB PO SCH (09:13)
[2022-05-11] MEDS: EZETIMIBE 10 MG TABLET PO SCH (09:14)
[2022-05-11] MEDS: FLUDROCORTISONE ACETATE 0.1 MG TAB PO SCH (09:14)
[2022-05-11] MEDS: ISOSORBIDE MONO EXTENDED REL 30 MG TABCR PO SCH (09:14)
[2022-05-11] MEDS: METOPROLOL SUCC 25MG EXT REL TAB PO SCH ×2 (09:14→21:05)
[2022-05-11] MEDS: CYANOCOBALAMIN (B-12) 2,500 MCG TABLET SL SCH (09:14)
[2022-05-11] MEDS: TAMSULOSIN HCL 0.4 MG CAP PO SCH (09:15)
[2022-05-11] MEDS: MONTELUKAST SODIUM 10 MG TABLET PO SCH (09:15)
--- NOTE | 2022-05-11 09:16 | Cardiology Progress Note ---
Date of Service May 11, 2022 Assessment & Plan (1) Pneumonia: (2) MCKENZIE (acute kidney injury): (3) Cardiomyopathy, ischemic: Plan: Patient previously trialed on Entresto and beta-bill but difficulties with hypotension complications resulted in discontinuation. Patient currently on Florinef (4) Elevated troponin: (5) Presence of combination internal cardiac defibrillator (ICD) and pacemaker: Plan: Complex 76-year-old male with known ischemic cardiomyopathy presents with weakness fever and chills probable pneumonia on chest x-ray. Laboratory studies reflect acute on chronic renal insufficiency and elevated troponin issues addressed are as follows 1. Acute weakness and fatigue possibly in association with febrile illness/pneumonia. Patient being treated and blood cultures ordered 2. Acute on chronic renal insufficiency 3. Ischemic cardiomyopathy with indwelling biventricular pacer defibrillator, no acute arrhythmias. Patient previously intolerant of Entresto, CIRO inhibitor 4. Moderate LV dysfunction 5. Elevated troponin Plan: Treat underlying infectious process. Blood cultures ordered cautious hydration given renal insufficiency as ordered Echocardiogram reviewed on preliminary views no change to slightly improved from last examination September 2021 no new finding Tolerating addition of low-dose beta-bill Recommend supplementation potassium to greater than 4 with patient at risk for atrial arrhythmia Admission and Anticipated Discharge Date Admission Date: May 10, 2022 Subjective Patient seen and examined, chart, medications, telemetry reviewed. Denies any cardiac complaints. No syncope or near syncope. Had loose stools and diarrhea this morning minimal productive cough. No fevers or chills. No chest pains or discomfort. No arrhythmias on telemetry other than rare ventricular ectopy Review of Systems Review of Systems: All systems reviewed & are unremarkable except as noted in Subjective Physical Exam Constitutional: well nourished; no acute distress Eyes: PERRL, conjunctivae normal, anicteric sclerae ENMT: Mild baseline facial droop Neck: trachea midline, no thyromegaly Respiratory: normal respiratory effort, lungs clear to auscultation Auscultation: + diminished lung sounds Cardiovascular: Rate/Rhythm: regular rate and regular rhythm Heart Sounds: normal S1 and normal S2; no murmur Vessels: no JVD Extremities: no edema Chest (Breasts): Chest: + pacemaker (Pacer defibrillator left chest without irritation) Gastrointestinal (Abdomen): normal bowel sounds, soft, nontender, no hepatosplenomegaly Musculoskeletal: no cyanosis or clubbing, extremities motor strength 5/5 Results & Data ([facility]) Vital Signs (Past 12 Hours) Vital Signs Temp Pulse Pulse Resp BP BP Pulse Ox 05/11/22 05:32 37.3 C 05/11/22 04:00 37.4 C 73 69 19 128/75 128/75 96 05/11/22 03:00 72 25 H 94 05/11/22 02:00 72 20 96 05/11/22 01:00 70 25 H 05/11/22 00:00 37.4 C 68 65 13 120/62 120/62 96 05/10/22 23:00 72 25 H 93 05/10/22 22:00 77 26 H Laboratory Results Laboratory Results - last 24 hr 05/10/22 05/10/22 05/10/22 11:45 11:45 11:45 WBC 6.51 RBC 4.69 L Hgb 13.9 L Hct 42.0 MCV 89.6 MCH 29.6 MCHC 33.1 RDW Std Deviation 48.4 H RDW Coeff of Leela 14.9 H Plt Count 137 MPV 10.9 H Neutrophils % (Manual) 87.9 Lymphocytes % (Manual) 1.7 Monocytes % (Manual) 9.5 Blast Cells % (Manual) 0.9 Neutrophils # (Manual) 5.72 Total Absolute Neuts 5.72 Lymphocytes # (Manual) 0.11 L Total Abs Lymphocytes 0.11 L Monocytes # (Manual) 0.62 H Blast Cells # (Man) 0.06 H Blood Smear Review Dohle Bodies 3+ Sodium 139 Potassium 3.4 L Chloride 108 H Carbon Dioxide 22 Anion Gap 9 BUN 38 H Creatinine 2.21 H Est Cr Clr Drug Dosing 37.5 Est GFR ( Amer) 32.8 Est GFR (Non-Af Amer) 28.3 BUN/Creatinine Ratio 17.2 Glucose 122 H POC Glucose Lactate Calcium 9.1 Total Bilirubin 1.1 H AST 34 ALT 23 Alkaline Phosphatase 64 Troponin I High Sens 394.6 H* Total Protein 6.8 Albumin 4.0 Globulin 2.8 Albumin/Globulin Ratio 1.4 Lipase 13 Procalcitonin 0.65 H Urine Color Urine Appearance Urine pH Ur Specific [place] Urine Protein Urine Glucose (UA) Urine Ketones Urine Blood Urine Nitrite Urine Bilirubin Urine Urobilinogen Ur Leukocyte Esterase Urine WBC (Auto) Urine RBC (Auto) U Hyaline Cast (Auto) U Epithel Cells (Auto) Urine Bacteria (Auto) Granular Casts Urine Yeast Nasal Screen MRSA (PCR) Hepatitis C Ab (EIA) Hep C Ab Signal/Cutoff SARS-CoV-2, RNA, NAAT 05/10/22 05/10/22 05/10/22 11:54 12:49 13:43 WBC RBC Hgb Hct MCV MCH MCHC RDW Std Deviation RDW Coeff of Leela Plt Count MPV Neutrophils % (Manual) Lymphocytes % (Manual) Monocytes % (Manual) Blast Cells % (Manual) Neutrophils # (Manual) Total Absolute Neuts Lymphocytes # (Manual) Total Abs Lymphocytes Monocytes # (Manual) Blast Cells # (Man) Blood Smear Review Dohle Bodies Sodium Potassium Chloride Carbon Dioxide Anion Gap BUN Creatinine Est Cr Clr Drug Dosing Est GFR ( Amer) Est GFR (Non-Af Amer) BUN/Creatinine Ratio Glucose POC Glucose Lactate 0.9 Calcium Total Bilirubin AST ALT Alkaline Phosphatase Troponin I High Sens Total Protein Albumin Globulin Albumin/Globulin Ratio Lipase Procalcitonin Urine Color Yellow Urine Appearance Turbid A Urine pH 5.0 Ur Specific [place] 1.015 Urine Protein 2+ H Urine Glucose (UA) Negative Urine Ketones Trace H Urine Blood 2+ H Urine Nitrite Negative Urine Bilirubin Negative Urine Urobilinogen Negative Ur Leukocyte Esterase Trace H Urine WBC (Auto) >30 H Urine RBC (Auto) 0-4 U Hyaline Cast (Auto) 10-30 H U Epithel Cells (Auto) >30 H Urine Bacteria (Auto) Negative Granular Casts 10-20 H Urine Yeast Not Reportable Nasal Screen MRSA (PCR) Hepatitis C Ab (EIA) Hep C Ab Signal/Cutoff SARS-CoV-2, RNA, NAAT NEGATIVE 05/10/22 05/10/22 05/10/22 16:15 16:31 17:30 WBC RBC Hgb Hct MCV MCH MCHC RDW Std Deviation RDW Coeff of Leela Plt Count MPV Neutrophils % (Manual) Lymphocytes % (Manual) Monocytes % (Manual) Blast Cells % (Manual) Neutrophils # (Manual) Total Absolute Neuts Lymphocytes # (Manual) Total Abs Lymphocytes Monocytes # (Manual) Blast Cells # (Man) Blood Smear Review Dohle Bodies Sodium Potassium Chloride Carbon Dioxide Anion Gap BUN Creatinine Est Cr Clr Drug Dosing Est GFR ( Amer) Est GFR (Non-Af Amer) BUN/Creatinine Ratio Glucose POC Glucose 123 H Lactate Calcium Total Bilirubin AST ALT Alkaline Phosphatase Troponin I High Sens Total Protein Albumin Globulin Albumin/Globulin Ratio Lipase Procalcitonin Urine Color Urine Appearance Urine pH Ur Specific [place] Urine Protein Urine Glucose (UA) Urine Ketones Urine Blood Urine Nitrite Urine Bilirubin Urine Urobilinogen Ur Leukocyte Esterase Urine WBC (Auto) Urine RBC (Auto) U Hyaline Cast (Auto) U Epithel Cells (Auto) Urine Bacteria (Auto) Granular Casts Urine Yeast Nasal Screen MRSA (PCR) Negative Hepatitis C Ab (EIA) Pending Hep C Ab Signal/Cutoff Pending SARS-CoV-2, RNA, NAAT 05/10/22 05/10/22 05/11/22 18:01 21:57 00:14 WBC RBC Hgb Hct MCV MCH MCHC RDW Std Deviation RDW Coeff of Leela Plt Count MPV Neutrophils % (Manual) Lymphocytes % (Manual) Monocytes % (Manual) Blast Cells % (Manual) Neutrophils # (Manual) Total Absolute Neuts Lymphocytes # (Manual) Total Abs Lymphocytes Monocytes # (Manual) Blast Cells # (Man) Blood Smear Review Dohle Bodies Sodium Potassium Chloride Carbon Dioxide Anion Gap BUN Creatinine Est Cr Clr Drug Dosing Est GFR ( Amer) Est GFR (Non-Af Amer) BUN/Creatinine Ratio Glucose POC Glucose 100 H Lactate Calcium Total Bilirubin AST ALT Alkaline Phosphatase Troponin I High Sens 441.9 H* 338.3 H* D Total Protein Albumin Globulin Albumin/Globulin Ratio Lipase Procalcitonin Urine Color Urine Appearance Urine pH Ur Specific [place] Urine Protein Urine Glucose (UA) Urine Ketones Urine Blood Urine Nitrite Urine Bilirubin Urine Urobilinogen Ur Leukocyte Esterase Urine WBC (Auto) Urine RBC (Auto) U Hyaline Cast (Auto) U Epithel Cells (Auto) Urine Bacteria (Auto) Granular Casts Urine Yeast Nasal Screen MRSA (PCR) Hepatitis C Ab (EIA) Hep C Ab Signal/Cutoff SARS-CoV-2, RNA, NAAT 05/11/22 05/11/22 05/11/22 04:59 04:59 07:27 WBC 5.71 RBC 4.16 L Hgb 12.6 L Hct 37.6 L MCV 90.4 MCH 30.3 MCHC 33.5 RDW Std Deviation 49.8 H RDW Coeff of Leela 14.9 H Plt Count 129 L MPV 10.9 H Neutrophils % (Manual) Lymphocytes % (Manual) Monocytes % (Manual) Blast Cells % (Manual) Neutrophils # (Manual) Total Absolute Neuts Lymphocytes # (Manual) Total Abs Lymphocytes Monocytes # (Manual) Blast Cells # (Man) Blood Smear Review Dohle Bodies Sodium 141 Potassium 3.3 L Chloride 111 H Carbon Dioxide 21 Anion Gap 9 BUN 34 H Creatinine 2.14 H Est Cr Clr Drug Dosing 38.8 Est GFR ( Amer) 34.1 Est GFR (Non-Af Amer) 29.4 BUN/Creatinine Ratio 15.9 Glucose 93 POC Glucose 85 Lactate Calcium 8.6 Total Bilirubin AST ALT Alkaline Phosphatase Troponin I High Sens Total Protein Albumin Globulin Albumin/Globulin Ratio Lipase Procalcitonin Urine Color Urine Appearance Urine pH Ur Specific [place] Urine Protein Urine Glucose (UA) Urine Ketones Urine Blood Urine Nitrite Urine Bilirubin Urine Urobilinogen Ur Leukocyte Esterase Urine WBC (Auto) Urine RBC (Auto) U Hyaline Cast (Auto) U Epithel Cells (Auto) Urine Bacteria (Auto) Granular Casts Urine Yeast Nasal Screen MRSA (PCR) Hepatitis C Ab (EIA) Hep C Ab Signal/Cutoff SARS-CoV-2, RNA, NAAT Medications Administered Current Medications Acetaminophen (Acetaminophen 325 Mg Tab) 650 mg PO Q4H PRN PRN Reason: Pain or Fever Stop: 06/09/22 15:26 Albuterol (Albut/Ipratrop 3mg/0.5mg Neb 3 Ml Vial) 3 ml NEB Q4R PRN; Protocol PRN Reason: shortness of breath Stop: 06/09/22 15:26 Clopidogrel Bisulfate (Clopidogrel Bisulfate 75 Mg Tab) 75 mg PO DAILY [facility]ITA Stop: 06/10/22 08:59 Cyanocobalamin (Cyanocobalamin (B-12) 2,500 Mcg Tablet) 5,000 mcg SL DAILY GITA Stop: 06/10/22 08:59 Dextrose (Dextrose 50% 50 Ml Syringe) 25 - 50 ml IV UD PRN; Protocol PRN Reason: Hypoglycemia Protocol Stop: 06/09/22 15:26 Ezetimibe (Ezetimibe 10 Mg Tablet) 10 mg PO DAILY GITA Stop: 06/10/22 08:59 Fludrocortisone Acetate (Fludrocortisone Acetate 0.1 Mg Tab) 0.1 mg PO DAILY [facility]ITA Stop: 06/10/22 08:59 Glucagon (Glucagon For Inj 1 Mg Vial) 1 mg SQ UD PRN; Protocol PRN Reason: Hypoglycemia Protocol Stop: 06/09/22 15:26 Glucose (Glucose 10 Tabs/Tube) 4 - 8 tabs PO UD PRN; Protocol PRN Reason: Hypoglycemia Protocol Stop: 06/09/22 15:26 Glucose (Glucose 40% Gel 15 Gm Tube) 15 - 30 gm PO UD PRN; Protocol PRN Reason: Hypoglycemia Protocol Stop: 06/09/22 15:26 Ceftriaxone Sodium 2,000 mg/ (Dextrose) 70 mls @ 100 mls/hr IV Q24H GITA; Protocol Stop: 05/16/22 13:41 Doxycycline Hyclate 100 mg/ (Dextrose) 110 mls @ 50 mls/hr IV Q12H [facility] Stop: 05/17/22 15:59 Last Infusion: 05/11/22 06:34 Dose: Infused Documented by: Insulin Aspart (Insulin Aspart Per Unit) 0 units SC ACHS [facility] Stop: 06/09/22 16:29 Last Admin: 05/11/22 08:09 Dose: Not Given Documented by: Isosorbide Mononitrate (Isosorbide [place] Extended Rel 30 Mg Tabcr) 30 mg PO QAM [facility] Stop: 06/10/22 08:59 Metoprolol Succinate (Metoprolol Succ 25mg Ext Rel Tab) 12.5 mg PO QAM [facility] Stop: 06/09/22 16:14 Last Admin: 05/10/22 17:53 Dose: 12.5 mg Documented by: Miscellaneous (Carbohydrates For Hypoglycemia ) 15 - 30 gm PO UD PRN PRN Reason: Hypoglycemia Protocol Stop: 06/09/22 15:26 Montelukast Sodium (Montelukast Sodium 10 Mg Tablet) 10 mg PO DAILY [facility] Stop: 06/10/22 08:59 Pregabalin (Pregabalin 75 Mg Cap) 75 mg PO TID [facility] Stop: 06/09/22 20:59 Last Admin: 05/10/22 21:58 Dose: 75 mg Documented by: Rosuvastatin Calcium (Rosuvastatin Calcium 20 Mg Tab) 40 mg PO HS [facility] Stop: 06/09/22 20:59 Last Admin: 05/10/22 21:55 Dose: 40 mg Documented by: Tamsulosin HCl (Tamsulosin Hcl 0.4 Mg Cap) 0.4 mg PO DAILY [facility] Stop: 06/10/22 08:59
[2022-05-11] MEDS: PREGABALIN 75 MG CAP PO SCH ×3 (09:17→21:08)
[2022-05-11] MEDS: cefTRIAXone SODIUM 2,000 MG in DEXTROSE 5% 50 ML IV SCH (13:24)
--- NOTE | 2022-05-11 13:25 | Magnetic Resonance Report ---
MR brain wo con CLINICAL HISTORY: Rule out CVA TECHNIQUE: Multiplanar and multisequence MR images of the brain were obtained without intravenous con trast. Comparison: Comparison is made to MRI brain 04/25/2016 FINDINGS: No abnormal restricted diffusion is identified. Foci of T2 and FLAIR hyperintensity are noted in the paraventricular areas consistent with chronic small vessel ischemic disease. Ex vacuo ventriculomegal y and sulcal enlargement is noted compatible with diffuse encephalomalacia. Encephalomalacia is seen in multiple foci most prominently in the right occipital lobe. No mass or abnormal enhancement is see n. There is no mass effect or midline shift. There is no evidence of acute intraparenchymal hemorrhag e. No extra axial fluid collections are seen. The corpus callosum, pituitary gland, and cerebellar to nsils appear grossly unremarkable. Flow voids of the major intracranial arterial vessels are identified. The imaged portions of the para nasal sinuses, mastoid air cells, and orbits are unremarkable. IMPRESSION: Old infarcts and age-related changes. No acute abnormalities and in particular no acute infarct is se en. ACT 112: Negative or not required by law. Electronically signed by: Edward Pierce M.D. 05/11/2022 1:23 PM
--- NOTE | 2022-05-11 16:46 | Hospitalist Progress Note ---
Date of Service May 11, 2022 Assessment & Plan (1) Pneumonia: Plan: Pt was send to the ER from cardiology office for evaluation of generalized weakness, illness, fall CXR showed interval development of hazy right midlung density. Procalcitonin 0.65 S/p IV ceftriaxone and azithromycin in the ED. Continue with IV doxycycline and IV ceftriaxone. Sputum cx pending Continue Pulmonary toilet with nebs, flutter valve Continue incentive spirometer (2) Acute kidney injury superimposed on CKD: (3) CKD (chronic kidney disease), stage III: Plan: Creatinine 2.1 today, baseline ~ 1.4 Likely prerenal due to acute illness /dehydration from heat exposure yesterday Received 1 L IVF in the ED Continue monitor BMP (4) Elevated troponin: (5) Coronary artery disease: Plan: HS trop 394.6 --> 441.9, then 338 No reports of chest pain, EKG demonstrates NSR, ventricular paced rhythm ECHO showed May be due to demand ischemia in the setting of acute illness and/or underlying renal insufficiency Continue to trend troponin Cardiology consulted --added low-dose metoprolol Resting echo showed mild concentric LVH. Moderate sized apical, inferior and posterior wall motion abnormality with hypokinesis to akinesis of the segment EF 45-50 % improved slightly compare to previous echo Continue nitrate, Plavix, statin, Zetia (6) CVA (cerebral vascular accident): Plan: History of with chronic right-sided facial droop Family believes drooping may be worse than baseline and also speech is not as clear Brain MRI showed Old infarcts and age-related changes. No acute abnormalities and in particular no acute infarct is seen. ECHO showed no evidence of interatrial shunt Will get a carotid u/s Continue Plavix, statin, Zetia (7) Cardiomyopathy, ischemic: (8) Presence of combination internal cardiac defibrillator (ICD) and pacemaker: Plan: Resting echo showed mild concentric LVH. Moderate sized apical, inferior and posterior wall motion abnormality with hypokinesis to akinesis of the segment EF 45-50 % improved slightly compare to previous echo Has been intolerant to medications due to ongoing orthostasis Not on routine diuretics Monitor volume status closely cardiology on board (9) Paroxysmal A-fib: Plan: s/p cardioversion and maintained NSR -- not currently on any rate or rhythm controlling medications No anticoagulation due to GI bleeding history Continue Metoprolol and Isosorbide Mononitrate Electrolytes imbalance K 3.3 today K replaced Will keep K above 4 and Mg above 2 (10) Orthostasis: Plan: On Florinef (11) Diabetes mellitus, type 2: Plan: Hgb A1c 6.2 04/2022 Hold oral agents and utilize NovoLog per protocol while hospitalized (12) DVT prophylaxis: Plan: SQ heparin Admission and Anticipated Discharge Date Admission Date: May 10, 2022 Subjective Pt was seen and examined for follow up of weakness, MCKENZIE and pneumonia Lying in bed with no acute distress with daughter and at bedside Pt said that he feels al little better He said that he had 3 episodes of diarrhea today said his speech seems to get better Telemonitor showed ventricular ectopic Denies any chest pain, palpitation, dizziness and SOB Review of Systems Review of Systems: All systems reviewed & are unremarkable except as noted in Subjective Physical Exam Physical Exam: General- No acute distress Head- atraumatic Eyes- PERRL, EOMI, ENT- oropharynx clear Neck- supple, no JVD Lungs- clear to auscultation Heart- regular rhythm; no murmur, + pacemaker (Pacer defibrillator left chest without irritation) Abdomen- normal bowel sounds, soft, nontender Extremities- no calf tenderness Neuro- alert, oriented x 3; PERRL, EOMI; no facial palsy; no dysarthria Skin- warm & dry Results & Data Results & Data ([facility]) Vital Signs (Past 12 Hours) Vital Signs Temp Pulse Pulse Resp BP BP Pulse Ox 05/11/22 15:45 75 24 98 05/11/22 15:30 69 24 94 05/11/22 15:15 69 20 94 05/11/22 15:00 67 20 95 05/11/22 14:45 72 20 94 05/11/22 14:30 71 20 95 05/11/22 14:15 73 13 94 05/11/22 14:10 80 19 97 05/11/22 13:45 71 20 94 05/11/22 13:30 74 23 94 05/11/22 13:19 75 18 103/65 95 05/11/22 13:16 81 05/11/22 12:44 37.5 C 05/11/22 12:05 86 23 126/68 94 05/11/22 12:01 112 H 20 05/11/22 11:00 67 20 95 05/11/22 10:00 72 13 99 05/11/22 09:36 70 20 121/70 95 05/11/22 09:28 37 C 74 18 107/59 L 97 05/11/22 09:20 71 19 107/59 L 94 05/11/22 09:14 74 24 112/49 L 89 L 05/11/22 09:00 76 22 96 05/11/22 08:04 9 L 94 05/11/22 07:29 76 29 H 146/86 H 95 05/11/22 07:00 74 19 95 05/11/22 05:32 37.3 C (1) Pneumonia Laterality: right Lung location: unspecified part of lung Pneumonia type: due to unspecified organism Qualified Code(s): J18.9 - Pneumonia, unspecified organism
[2022-05-11] MEDS ORDERED: POTASSIUM CHLORIDE CRTAB 20 MEQ TABCR PO ONE (16:49)
[2022-05-11] MEDS ORDERED: MAGNESIUM SULFATE / D5W 1 GM/100 ML BAG IV ONE (17:00)
[2022-05-11] MEDS: ROSUVASTATIN CALCIUM 20 MG TAB PO SCH (21:05)
--- NOTE | 2022-05-11 21:05 | Ultrasound Report ---
US carotid doppler BI CLINICAL HISTORY: stroke like symptoms. COMPARISON: None. TECHNIQUE: Cardenas scale, Doppler spectral analysis, and color imaging was performed. Stenosis assessmen t by velocity criteria. FINDINGS: Right CCA velocity (cm/s): 94 Right ICA velocity (cm/s): 64 Right ICA/CCA ratio: 0.7 Right vertebral arterial flow: Antegrade. Right findings: There is no significant atherosclerotic plaquing noted on the right. Left CCA velocity (cm/s): 133 Left ICA velocity (cm/s): 222 Left ICA/CCA ratio: 1.7 Left vertebral arterial flow: Antegrade. Left findings: There is significant atherosclerotic plaque present involving the carotid bulb and or igin of the left internal carotid artery IMPRESSION: Significant atherosclerotic plaque involving the left carotid bulb and origin of the left internal carotid artery with findings characteristic of 50-69% stenosis using velocity criteria. ACT 112: Negative or not required by law. Electronically signed by: Gilbert Paz M.D. 05/11/2022 9:03 PM
[2022-05-12] MEDS: DOXYCYCLINE HYCLATE 100 MG in DEXTROSE 5% 100 ML IV SCH ×2 (03:17→16:31)
[2022-05-12 06:46] LABS: Hematocrit (blood only) 38.3 % (42-52); Hemoglobin 12.6 g/dL (14.0-18.0); Mean Corpuscular Hemoglobin 29.5 pg (25-34); Mean Corpuscular Hgb Conc 32.9 g/dL (32-36); Mean Corpuscular Volume 89.7 fL (80-100); Mean Platelet Volume 11.4 fL (7.4-10.4); Platelet Count 143 K/uL (130-400); RDW Coefficient of Variation 15.2 % (11.5-14.5); RDW Standard Deviation 49.8 fL (36.4-46.3); Red Blood Count 4.27 M/uL (4.7-6.1); White Blood Count 6.52 K/uL (4.8-10.8)
[2022-05-12 07:09] LABS: BUN Creatinine Ratio 14.4 (10-20); Calcium 8.5 mg/dl (8.5-10.1); Creatinine Clr Calc Pharmacy 38.3 ml/min; Est GFR (African American) 33.7 ml/min; Est GFR (Non-African American) 29.1 ml/min; Magnesium 1.8 mg/dl (1.7-2.4); Potassium 3.5 mmol/L (3.5-5.1)
[2022-05-12] MEDS: INSULIN ASPART PER UNIT SC SCH ×4 (08:47→21:31)
[2022-05-12] MEDS: FLUDROCORTISONE ACETATE 0.1 MG TAB PO SCH (08:48)
[2022-05-12] MEDS: TAMSULOSIN HCL 0.4 MG CAP PO SCH (08:49)
[2022-05-12] MEDS: CLOPIDOGREL BISULFATE 75 MG TAB PO SCH (08:49)
[2022-05-12] MEDS: MONTELUKAST SODIUM 10 MG TABLET PO SCH (08:49)
[2022-05-12] MEDS: ISOSORBIDE MONO EXTENDED REL 30 MG TABCR PO SCH (08:49)
[2022-05-12] MEDS: CYANOCOBALAMIN (B-12) 2,500 MCG TABLET SL SCH (08:49)
[2022-05-12] MEDS: EZETIMIBE 10 MG TABLET PO SCH (08:49)
[2022-05-12] MEDS: PREGABALIN 75 MG CAP PO SCH ×3 (08:55→21:34)
[2022-05-12] MEDS ORDERED: POTASSIUM CHLORIDE 10 MEQ TABCR PO STA (09:09)
[2022-05-12] MEDS: METOPROLOL SUCC 25MG EXT REL TAB PO SCH ×2 (09:19→21:32)
[2022-05-12] MEDS: cefTRIAXone SODIUM 2,000 MG in DEXTROSE 5% 50 ML IV SCH (12:32)
[2022-05-12] MEDS ORDERED: LOPERAMIDE HCL 2 MG CAP PO PRN (14:13)
--- NOTE | 2022-05-12 14:34 | Cardiology Progress Note ---
Date of Service May 12, 2022 Assessment & Plan (1) Cardiomyopathy, ischemic: Plan: Patient previously trialed on Entresto and beta-bill but difficulties with hypotension complications resulted in discontinuation. Patient currently on Florinef (2) Presence of combination internal cardiac defibrillator (ICD) and pacemaker: Plan: Complex 76-year-old male with known ischemic cardiomyopathy presents with weakness fever and chills probable pneumonia on chest x-ray. Laboratory studies reflect acute on chronic renal insufficiency and elevated troponin issues addressed are as follows 1. Acute weakness and fatigue possibly in association with febrile illness/pneumonia. Patient being treated and blood cultures ordered 2. Acute on chronic renal insufficiency 3. Ischemic cardiomyopathy with indwelling biventricular pacer defibrillator, no acute arrhythmias. Patient previously intolerant of Entresto, CIRO inhibitor 4. Moderate LV dysfunction 5. Elevated troponin Plan: Treat underlying infectious process. Blood cultures ordered cautious hydration given renal insufficiency as ordered Echocardiogram reviewed on preliminary views no change to slightly improved from last examination September 2021 no new finding Tolerating addition of low-dose beta-bill Recommend supplementation potassium to greater than 4 with patient at risk for atrial arrhythmia Admission and Anticipated Discharge Date Admission Date: May 10, 2022 Subjective Patient seen and examined, chart reviewed. Family at bedside. States he is feeling better than presentation. His appetite is returned but he still having diarrhea. Telemetry reviewed: Ventricularly paced rhythm Review of Systems Review of Systems: All systems reviewed & are unremarkable except as noted in HPI & below Physical Exam Physical Exam: General: Awake, alert and oriented x 3. No acute distress. HEENT: Normocephalic, atraumatic. Pupils equal, round and reactive to light and accommodation. Extraocular muscles are intact. Anicteric sclera. Moist mucous membranes. Neck: No JVD. No bruit. Cardiovascular: Regular. Positive S-4. Normal S-1 and S-2. No S-3. 3/6 mid to late systolic ejection murmur, greatest at the right sternal border, second intercostal space with radiation to the bilateral carotids. No rubs. Pulmonary: Clear to auscultation bilaterally. No rales, rhonchi, or wheezing. Abdomen: Bowel sounds x 4, soft. No rebound, guarding or tenderness. No organomegaly. Extremities: No clubbing, cyanosis or edema. +2 pedal pulses bilaterally. Skin: Warm and dry. Results & Data ([facility]) Vital Signs (Past 12 Hours) Vital Signs Temp Pulse Pulse Resp BP Pulse Ox 05/12/22 08:00 36.9 C 60 05/12/22 04:00 37 C 77 16 150/75 H 95
[2022-05-12] MEDS: SACCHAROMYCES BOULARDII 250 MG CAP PO SCH (16:29)
--- NOTE | 2022-05-12 20:17 | Hospitalist Progress Note ---
Date of Service May 12, 2022 Assessment & Plan (1) Pneumonia: Plan: Pt was send to the ER from cardiology office for evaluation of generalized weakness, illness, fall CXR showed interval development of hazy right midlung density. Procalcitonin 0.65 S/p IV ceftriaxone and azithromycin in the ED. Continue with IV doxycycline and IV ceftriaxone. Sputum culture and blood culture no growth Continue Pulmonary toilet with nebs, flutter valve Continue incentive spirometer (2) Acute kidney injury superimposed on CKD: (3) CKD (chronic kidney disease), stage III: Plan: Creatinine 2.1 today, baseline ~ 1.4 Likely prerenal due to acute illness /dehydration from heat exposure yesterday Received 1 L IVF in the ED Continue monitor BMP (4) Elevated troponin: (5) Coronary artery disease: Plan: HS trop 394.6 --> 441.9, then 338 No reports of chest pain, EKG demonstrates NSR, ventricular paced rhythm ECHO showed May be due to demand ischemia in the setting of acute illness and/or underlying renal insufficiency Continue to trend troponin Cardiology consulted --added low-dose metoprolol Resting echo showed mild concentric LVH. Moderate sized apical, inferior and posterior wall motion abnormality with hypokinesis to akinesis of the segment EF 45-50 % improved slightly compare to previous echo Continue nitrate, Plavix, statin, Zetia (6) CVA (cerebral vascular accident): Plan: History of with chronic right-sided facial droop Family believes drooping may be worse than baseline and also speech is not as clear Brain MRI showed Old infarcts and age-related changes. No acute abnormalities and in particular no acute infarct is seen. ECHO showed no evidence of interatrial shunt Carotid u/s showed significant atherosclerotic plaque involving the left carotid bulb and origin of the left internal carotid artery with findings characteristic of 50-69% stenosis using velocity criteria. Continue Plavix, statin, Zetia (7) Cardiomyopathy, ischemic: (8) Presence of combination internal cardiac defibrillator (ICD) and pacemaker: Plan: Resting echo showed mild concentric LVH. Moderate sized apical, inferior and posterior wall motion abnormality with hypokinesis to akinesis of the segment EF 45-50 % improved slightly compare to previous echo Has been intolerant to medications due to ongoing orthostasis Not on routine diuretics Monitor volume status closely cardiology on board (9) Paroxysmal A-fib: Plan: s/p cardioversion and maintained NSR -- not currently on any rate or rhythm controlling medications No anticoagulation due to GI bleeding history Continue Metoprolol and Isosorbide Mononitrate Electrolytes imbalance K 3.5 today K replaced keep K above 4 and Mg above 2 (10) Orthostasis: Plan: On Florinef (11) Diabetes mellitus, type 2: Plan: Hgb A1c 6.2 04/2022 Hold oral agents and utilize NovoLog per protocol while hospitalized (12) DVT prophylaxis: Plan: SQ heparin Disposition Requested recent hospital visit record since pt's said she received a call that his blood cx was positive Admission and Anticipated Discharge Date Admission Date: May 10, 2022 Subjective Pt was seen and examined for follow up of weakness, MCKENZIE and pneumonia Sitting in chair with no acute distress with daughter and at bedside He said that he is feeling much better He continues to have diarrhea and stool for C. difficile was negative He said that his strength and energy improved Denies any chest pain, palpitation, dizziness and SOB Review of Systems Review of Systems: All systems reviewed & are unremarkable except as noted in Subjective Physical Exam Physical Exam: General- No acute distress Head- atraumatic Eyes- PERRL, EOMI, ENT- oropharynx clear Neck- supple, no JVD Lungs- clear to auscultation Heart- regular rhythm; no murmur, + pacemaker (Pacer defibrillator left chest without irritation) Abdomen- normal bowel sounds, soft, nontender Extremities- no calf tenderness Neuro- alert, oriented x 3; PERRL, EOMI; no facial palsy; no dysarthria Skin- warm & dry Results & Data Results & Data ([facility]) Vital Signs (Past 12 Hours) Vital Signs Temp Pulse Pulse Resp BP BP Pulse Ox 05/12/22 20:01 37.4 C 67 22 160/86 H 97 05/12/22 19:00 05/12/22 17:46 90 23 152/92 H 94 05/12/22 16:32 60 26 H 139/79 05/12/22 16:30 36.7 C 05/12/22 16:00 60 05/12/22 11:30 36.9 C 05/12/22 11:29 60 23 123/70 96 Pulse Ox 05/12/22 20:01 05/12/22 19:00 97 05/12/22 17:46 05/12/22 16:32 05/12/22 16:30 05/12/22 16:00 05/12/22 11:30 05/12/22 11:29 (1) Pneumonia Laterality: right Lung location: unspecified part of lung Pneumonia type: due to unspecified organism Qualified Code(s): J18.9 - Pneumonia, unspecified organism
[2022-05-12] MEDS: ROSUVASTATIN CALCIUM 20 MG TAB PO SCH (21:32)
[2022-05-13] MEDS: DOXYCYCLINE HYCLATE 100 MG in DEXTROSE 5% 100 ML IV SCH ×2 (03:02→15:02)
[2022-05-13 08:03] LABS: BUN Creatinine Ratio 14.7 (10-20); Calcium 8.5 mg/dl (8.5-10.1); Creatinine Clr Calc Pharmacy 46.7 ml/min; Est GFR (African American) 42.9 ml/min; Magnesium 1.6 mg/dl (1.7-2.4); Potassium 3.5 mmol/L (3.5-5.1)
[2022-05-13] MEDS: INSULIN ASPART PER UNIT SC SCH ×4 (08:20→21:42)
[2022-05-13] MEDS: SACCHAROMYCES BOULARDII 250 MG CAP PO SCH (08:21)
[2022-05-13] MEDS: METOPROLOL SUCC 25MG EXT REL TAB PO SCH ×2 (08:21→21:42)
[2022-05-13] MEDS: PREGABALIN 75 MG CAP PO SCH ×3 (08:21→21:56)
[2022-05-13] MEDS: EZETIMIBE 10 MG TABLET PO SCH (08:22)
[2022-05-13] MEDS: ISOSORBIDE MONO EXTENDED REL 30 MG TABCR PO SCH (08:23)
[2022-05-13] MEDS: CYANOCOBALAMIN (B-12) 2,500 MCG TABLET SL SCH (08:23)
[2022-05-13] MEDS: CLOPIDOGREL BISULFATE 75 MG TAB PO SCH (08:23)
[2022-05-13] MEDS: FLUDROCORTISONE ACETATE 0.1 MG TAB PO SCH (08:23)
[2022-05-13] MEDS: TAMSULOSIN HCL 0.4 MG CAP PO SCH (08:24)
[2022-05-13] MEDS: MONTELUKAST SODIUM 10 MG TABLET PO SCH (08:24)
[2022-05-13] MEDS ORDERED: POTASSIUM CHLORIDE CRTAB 20 MEQ TABCR PO STA (08:42)
[2022-05-13] MEDS ORDERED: MAGNESIUM SULFATE / D5W 1 GM/100 ML BAG IV ONE (08:42)
[2022-05-13] MEDS: cefTRIAXone SODIUM 2,000 MG in DEXTROSE 5% 50 ML IV SCH (13:15)
[2022-05-13] MEDS: ROSUVASTATIN CALCIUM 20 MG TAB PO SCH (21:43)
--- NOTE | 2022-05-13 22:27 | Cardiology Progress Note ---
Date of Service May 13, 2022 Assessment & Plan (1) Cardiomyopathy, ischemic: Plan: Patient previously trialed on Entresto and beta-bill but difficulties with hypotension complications resulted in discontinuation. Patient currently on Florinef (2) Presence of combination internal cardiac defibrillator (ICD) and pacemaker: Plan: Complex 76-year-old male with known ischemic cardiomyopathy presents with weakness fever and chills probable pneumonia on chest x-ray. Laboratory studies reflect acute on chronic renal insufficiency and elevated troponin issues addressed are as follows 1. Acute weakness and fatigue possibly in association with febrile illness/pneumonia. Patient being treated and blood cultures ordered 2. Acute on chronic renal insufficiency 3. Ischemic cardiomyopathy with indwelling biventricular pacer defibrillator, no acute arrhythmias. Patient previously intolerant of Entresto, CIRO inhibitor 4. Moderate LV dysfunction 5. Elevated troponin Plan: Treat underlying infectious process. Blood cultures ordered cautious hydration given renal insufficiency as ordered Echocardiogram reviewed on preliminary views no change to slightly improved from last examination September 2021 no new finding Tolerating addition of low-dose beta-bill Recommend supplementation potassium to greater than 4 with patient at risk for atrial arrhythmia Admission and Anticipated Discharge Date Admission Date: May 10, 2022 Physical Exam Physical Exam: General: Awake, alert and oriented x 3. No acute distress. HEENT: Normocephalic, atraumatic. Pupils equal, round and reactive to light and accommodation. Extraocular muscles are intact. Anicteric sclera. Moist mucous membranes. Neck: No JVD. No bruit. Cardiovascular: Regular. Positive S-4. Normal S-1 and S-2. No S-3. 3/6 mid to late systolic ejection murmur, greatest at the right sternal border, second intercostal space with radiation to the bilateral carotids. No rubs. Pulmonary: Clear to auscultation bilaterally. No rales, rhonchi, or wheezing. Abdomen: Bowel sounds x 4, soft. No rebound, guarding or tenderness. No organomegaly. Extremities: No clubbing, cyanosis or edema. +2 pedal pulses bilaterally. Skin: Warm and dry. Results & Data ([facility]) Vital Signs (Past 12 Hours) Vital Signs Temp Pulse Pulse Resp BP Pulse Ox 05/13/22 19:49 37.3 C 67 18 164/82 H 96 05/13/22 17:46 37.1 C 62 18 151/82 H 95 05/13/22 16:00 60 05/13/22 11:34 37.8 C H 61 16 142/79 H 95
--- NOTE | 2022-05-13 22:30 | Hospitalist Progress Note ---
Date of Service May 13, 2022 Assessment & Plan (1) Pneumonia: Plan: Pt was send to the ER from cardiology office for evaluation of generalized weakness, illness, fall CXR showed interval development of hazy right midlung density. Procalcitonin 0.65 Received IV ceftriaxone and azithromycin in the ED. Continue with IV doxycycline and IV ceftriaxone. Sputum culture and blood culture no growth Continue Pulmonary toilet with nebs, flutter valve Continue incentive spirometer Clinically improves significantly (2) Acute kidney injury superimposed on CKD: (3) CKD (chronic kidney disease), stage III: Plan: Creatinine 1.7 today, baseline ~ 1.4 Likely prerenal due to acute illness /dehydration from heat exposure yesterday Received 1 L IVF in the ED Continue monitor BMP (4) Elevated troponin: (5) Coronary artery disease: Plan: HS trop 394.6 --> 441.9, then 338 No reports of chest pain, EKG demonstrates NSR, ventricular paced rhythm ECHO showed May be due to demand ischemia in the setting of acute illness and/or underlying renal insufficiency Continue to trend troponin Cardiology consulted --added low-dose metoprolol Resting echo showed mild concentric LVH. Moderate sized apical, inferior and posterior wall motion abnormality with hypokinesis to akinesis of the segment EF 45-50 % improved slightly compare to previous echo Continue nitrate, Plavix, statin, Zetia (6) CVA (cerebral vascular accident): Plan: History of with chronic right-sided facial droop Family believes drooping may be worse than baseline and also speech is not as clear Brain MRI showed Old infarcts and age-related changes. No acute abnormalities and in particular no acute infarct is seen. ECHO showed no evidence of interatrial shunt Carotid u/s showed significant atherosclerotic plaque involving the left carotid bulb and origin of the left internal carotid artery with findings characteristic of 50-69% stenosis using velocity criteria. Continue Plavix, statin, Zetia (7) Cardiomyopathy, ischemic: (8) Presence of combination internal cardiac defibrillator (ICD) and pacemaker: Plan: Resting echo showed mild concentric LVH. Moderate sized apical, inferior and posterior wall motion abnormality with hypokinesis to akinesis of the segment EF 45-50 % improved slightly compare to previous echo Has been intolerant to medications due to ongoing orthostasis Not on routine diuretics Monitor volume status closely cardiology on board (9) Paroxysmal A-fib: Plan: s/p cardioversion and maintained NSR -- not currently on any rate or rhythm controlling medications telemonitor showed 16 beats Vtach No anticoagulation due to GI bleeding history Continue Metoprolol and Isosorbide Mononitrate Electrolytes imbalance K 3.5 and Mg 1.6 today Continue replaced electrolytes Keep K above 4 and Mg above 2 (10) Orthostasis: Plan: On Florinef (11) Diabetes mellitus, type 2: Plan: Hgb A1c 6.2 04/2022 Hold oral agents and utilize NovoLog per protocol while hospitalized (12) DVT prophylaxis: Plan: SQ heparin Disposition Requested recent hospital visit record since pt's said she received a call that his blood cx was positive Admission and Anticipated Discharge Date Admission Date: May 10, 2022 Subjective Pt was seen and examined for follow up of weakness, MCKENZIE and pneumonia Lying in bed with no acute distress with at bedside He said that he is feeling much better He said that diarrhea improved He said that his strength and energy improved Denies any chest pain, palpitation, dizziness and SOB Review of Systems Review of Systems: All systems reviewed & are unremarkable except as noted in Subjective Physical Exam Physical Exam: General- No acute distress Head- atraumatic Eyes- PERRL, EOMI, ENT- oropharynx clear Neck- supple, no JVD Lungs- clear to auscultation Heart- regular rhythm; no murmur, + pacemaker (Pacer defibrillator left chest without irritation) Abdomen- normal bowel sounds, soft, nontender Extremities- no calf tenderness Neuro- alert, oriented x 3; PERRL, EOMI; no facial palsy; no dysarthria Skin- warm & dry Results & Data Results & Data ([facility]) Vital Signs (Past 12 Hours) Vital Signs Temp Pulse Pulse Resp BP Pulse Ox 05/13/22 19:49 37.3 C 67 18 164/82 H 96 05/13/22 17:46 37.1 C 62 18 151/82 H 95 05/13/22 16:00 60 05/13/22 11:34 37.8 C H 61 16 142/79 H 95 (1) Pneumonia Laterality: right Lung location: unspecified part of lung Pneumonia type: due to unspecified organism Qualified Code(s): J18.9 - Pneumonia, unspecified organism
[2022-05-14] MEDS: DOXYCYCLINE HYCLATE 100 MG in DEXTROSE 5% 100 ML IV SCH (03:40)
[2022-05-14 07:27] LABS: Hematocrit (blood only) 38.2 % (42-52); Hemoglobin 12.8 g/dL (14.0-18.0); Mean Corpuscular Hemoglobin 29.8 pg (25-34); Mean Corpuscular Hgb Conc 33.5 g/dL (32-36); Mean Platelet Volume 11.4 fL (7.4-10.4); Platelet Count 181 K/uL (130-400); RDW Coefficient of Variation 14.9 % (11.5-14.5); RDW Standard Deviation 48.4 fL (36.4-46.3); Red Blood Count 4.29 M/uL (4.7-6.1); White Blood Count 6.91 K/uL (4.8-10.8)
[2022-05-14] MEDS: CLOPIDOGREL BISULFATE 75 MG TAB PO SCH (08:15)
[2022-05-14] MEDS: ISOSORBIDE MONO EXTENDED REL 30 MG TABCR PO SCH (08:15)
[2022-05-14] MEDS: INSULIN ASPART PER UNIT SC SCH ×2 (08:15→12:18)
[2022-05-14] MEDS: TAMSULOSIN HCL 0.4 MG CAP PO SCH (08:15)
[2022-05-14] MEDS: PREGABALIN 75 MG CAP PO SCH ×2 (08:15→14:42)
[2022-05-14] MEDS: CYANOCOBALAMIN (B-12) 2,500 MCG TABLET SL SCH (08:16)
[2022-05-14] MEDS: MONTELUKAST SODIUM 10 MG TABLET PO SCH (08:16)
[2022-05-14] MEDS: SACCHAROMYCES BOULARDII 250 MG CAP PO SCH (08:16)
[2022-05-14] MEDS: FLUDROCORTISONE ACETATE 0.1 MG TAB PO SCH (08:16)
[2022-05-14] MEDS: EZETIMIBE 10 MG TABLET PO SCH (08:16)
[2022-05-14 08:28] LABS: Calcium 8.5 mg/dl (8.5-10.1); Creatinine Clr Calc Pharmacy 50.1 ml/min; Est GFR (Non-African American) 40.6 ml/min; Magnesium 1.6 mg/dl (1.7-2.4); Potassium 3.7 mmol/L (3.5-5.1)
[2022-05-14] MEDS ORDERED: POTASSIUM CHLORIDE CRTAB 20 MEQ TABCR PO STA (08:42)
[2022-05-14] MEDS ORDERED: MAGNESIUM SULFATE / D5W 1 GM/100 ML BAG IV ONE (09:00)
[2022-05-14] MEDS: METOPROLOL SUCC 25MG EXT REL TAB PO SCH (09:49)
[2022-05-14] MEDS ORDERED: MAGNESIUM OXIDE 400 MG TAB PO SCH (12:00)
[2022-05-14] MEDS: cefTRIAXone SODIUM 2,000 MG in DEXTROSE 5% 50 ML IV SCH (12:43)
--- NOTE | 2022-05-14 14:25 | Discharge Summary ---
Date of Service May 14, 2022 Admission HPI Per Admitting Provider 76-year-old male with PMH DM type II, CAD, ischemic cardiomyopathy EF 30 to 34%, s/p BiV pacer defibrillator, history of CVA, HTN, CKD stage III, paroxysmal atrial fibrillation not anticoagulated due to history of GI bleeding, and other problems to below who presents to the ED by referral of cardiology office for evaluation of generalized weakness, illness. Patient reports that he was at a horse show to watch his granddaughter yesterday. Notes that it was very hot and humid out. Reports that while he was walking up a hill, his legs gave out from under him and he fell to the ground. Patient was taken to an ER in [place]. 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 Patient reports that he has not been feeling well for about the past 1 week. He has had worsening generalized weakness, rhinorrhea, congestion, mild cough. Has history of CVA with right facial droop. Family believes this may be worse than normal and also speech is not as clear. No fevers or chills. Denies chest pain or shortness of breath. No lightheadedness, dizziness, diaphoresis, syncopal events. Denies abdominal pain, nausea, vomiting, diarrhea. No urinary symptoms. In the ED, patient is hemodynamically stable. Labs show creatinine 2.2 (baseline ~ 1.4). HS troponin 394.6. EKG shows NSR, ventricular paced. CXR shows a right middle lobe pneumonia. Patient was given IV azithromycin, IV ceftriaxone, IVF. Admission Exam Per Admitting Provider Chief Complaint: Generalized Weakness Primary Care Provider: Chava Bell MD 76-year-old male with PMH DM type II, CAD, ischemic cardiomyopathy EF 30 to 34%, s/p BiV pacer defibrillator, history of CVA, HTN, CKD stage III, paroxysmal atrial fibrillation not anticoagulated due to history of GI bleeding, and other problems to below who presents to the ED by referral of cardiology office for evaluation of generalized weakness, illness. Patient reports that he was at a horse show to watch his granddaughter yesterday. Notes that it was very hot and humid out. Reports that while he was walking up a hill, his legs gave out from under him and he fell to the ground. Patient was taken to an ER in [place]. 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 Patient reports that he has not been feeling well for about the past 1 week. He has had worsening generalized weakness, rhinorrhea, congestion, mild cough. Has history of CVA with right facial droop. Family believes this may be worse than normal and also speech is not as clear. No fevers or chills. Denies chest pain or shortness of breath. No lightheadedness, dizziness, diaphoresis, syncopal events. Denies abdominal pain, nausea, vomiting, diarrhea. No urinary symptoms. In the ED, patient is hemodynamically stable. Labs show creatinine 2.2 (baseline ~ 1.4). HS troponin 394.6. EKG shows NSR, ventricular paced. CXR shows a right middle lobe pneumonia. Patient was given IV azithromycin, IV ceftriaxone, IVF. Principal Diagnosis Pneumonia: Acute kidney injury superimposed on CKD: Elevated troponin: Coronary artery disease: CVA (cerebral vascular accident): Cardiomyopathy, ischemic: Presence of combination internal cardiac defibrillator (ICD) and pacemaker: Electrolytes imbalance Diabetes mellitus, type 2: Discharge Exam General- No acute distress Head- atraumatic Eyes- PERRL, EOMI, ENT- oropharynx clear Neck- supple, no JVD Lungs- clear to auscultation Heart- regular rhythm; no murmur, + pacemaker (Pacer defibrillator left chest without irritation) Abdomen- normal bowel sounds, soft, nontender Extremities- no calf tenderness Neuro- alert, oriented x 3; PERRL, EOMI; no facial palsy; no dysarthria Skin- warm & dry Discharge Data Allergies Allergy/AdvReac Type Severity Reaction Status Date / Time No Known Allergies Allergy Verified 10/11/21 08:42 Consultations 05/10/22 13:33 ED Decision to Admit Stat Ordered Studies 05/10/22 11:59 CT head/brain wo con Stat 05/11/22 00:00 MR brain wo con Stat 05/11/22 16:32 US carotid doppler BI Routine US carotid doppler BI CLINICAL HISTORY: stroke like symptoms. COMPARISON: None. TECHNIQUE: Cardenas scale, Doppler spectral analysis, and color imaging was performed. Stenosis assessment by velocity criteria. FINDINGS: Right CCA velocity (cm/s): 94 Right ICA velocity (cm/s): 64 Right ICA/CCA ratio: 0.7 Right vertebral arterial flow: Antegrade. Right findings: There is no significant atherosclerotic plaquing noted on the right. Left CCA velocity (cm/s): 133 Left ICA velocity (cm/s): 222 Left ICA/CCA ratio: 1.7 Left vertebral arterial flow: Antegrade. Left findings: There is significant atherosclerotic plaque present involving the carotid bulb and origin of the left internal carotid artery IMPRESSION: Significant atherosclerotic plaque involving the left carotid bulb and origin of the left internal carotid artery with findings characteristic of 50-69% stenosis using velocity criteria. ACT 112: Negative or not required by law. Electronically signed by: Gilbert Paz M.D. 05/11/2022 9:03 PM Dictated:05/11/222057 Transcribed: 05/11/222057 MR brain wo con CLINICAL HISTORY: Rule out CVA TECHNIQUE: Multiplanar and multisequence MR images of the brain were obtained without intravenous contrast. Comparison: Comparison is made to MRI brain 04/25/2016 FINDINGS: No abnormal restricted diffusion is identified. Foci of T2 and FLAIR hyperintensity are noted in the paraventricular areas consistent with chronic small vessel ischemic disease. Ex vacuo ventriculomegaly and sulcal enlargement is noted compatible with diffuse encephalomalacia. Encephalomalacia is seen in multiple foci most prominently in the right occipital lobe. No mass or abnormal enhancement is seen. There is no mass effect or midline shift. There is no evide nce of acute intraparenchymal hemorrhage. No extra axial fluid collections are seen. The corpus callosum, pituitary gland, and cerebellar tonsils appear grossly unremarkable. Flow voids of the major intracranial arterial vessels are identified. The imaged portions of the paranasal sinuses, mastoid air cells, and orbits are unremarkable. IMPRESSION: Old infarcts and age-related changes. No acute abnormalities and in particular no acute infarct is seen. ACT 112: Negative or not required by law. Electronically signed by: Edward Pierce M.D. 05/11/2022 1:23 PM Dictated:05/11/221307 Transcribed: 05/11/221307 CT head/brain wo con CLINICAL HISTORY: dizzy Technique: Contiguous axial CT images of the head were acquired from the base of the skull to the vertex without intravenous contrast administration. Images were viewed in brain, subdural and bone windows. Automated dose lowering techniques and/or adjustment according to patient size were utilized for this exam. Comparison: Comparison is made to CT head 07/29/2021 Findings: The ventricles, basal cisterns, and cerebral sulci are normal. There is no acute intracranial hemorrhage or evidence of acute territorial infarction. Neither mass effect, shift of the midline structures, nor abnormal extra-axial fluid collections are shown. Old infarcts are seen in the left insula, left supraventricular white matter, and right occipital regions. Imaged portions of the paranasal sinuses and mastoid air cells are clear. The orbits appear normal. There are no acute fractures of the calvaria or scalp swelling. Impression: No acute intracranial hemorrhage, no evidence of acute territorial infarction or other acute intracranial disease process. Old stable encephalomalacia as above. ACT 112: Negative or not required by law. Electronically signed by: Edward Pierce M.D. 05/10/2022 1:39 PM Dictated:05/10/22 1335 Transcribed: 05/10/22 1335 XR chest 1V portable CLINICAL HISTORY: Atypical chest pain. COMPARISON STUDY: Chest radiograph August 15, 2021 FINDINGS: Hazy right midlung density measuring 9.3 cm in extent has developed since prior exam of August 15, 2021. Otherwise, lungs are clear. No evidence for interstitial pulmonary edema. Cardiomegaly is again noted. Left subclavian pacer/AICD is in place. There are median sternotomy wires. Postoperative findings within the cervical spine are incidentally noted. There is no pneumothorax or pleural effusion. IMPRESSION: Interval development of hazy right midlung density. Pneumonia is favored. Fissural fluid or asymmetric alveolar pulmonary edema are considered less likely but could appear similar. Follow-up chest radiographs to ensure resolution are recommended. ACT 112: Negative or not required by law. Electronically signed by: Dexter Ibarra M.D. 05/10/2022 12:38 PM Dictated:05/10/22 1236 Transcribed: 05/10/22 1236 Hospital Course (1) Pneumonia: Pt was send to the ER from cardiology office for evaluation of generalized weakness, illness, fall CXR showed interval development of hazy right midlung density. Procalcitonin 0.65 Received IV ceftriaxone and azithromycin in the ED. Currently on IV doxycycline (start on 05/10) and IV ceftriaxone on (05/11) Sputum culture and blood culture no growth Continue Pulmonary toilet with nebs, flutter valve Continue incentive spirometer Clinically improves significantly Will discharge on doxycycline PO to complete an additional 3 days (2) Acute kidney injury superimposed on CKD: (3) CKD (chronic kidney disease), stage III: Creatinine 1.6 on discharge, baseline ~ 1.4 Likely prerenal due to acute illness /dehydration from heat exposure yesterday Received 1 L IVF in the ED Check BMP in 1 week to monitor renal function (4) Elevated troponin: (5) Coronary artery disease: HS trop 394.6 --> 441.9, then 338 No reports of chest pain, EKG demonstrates NSR, ventricular paced rhythm ECHO showed May be due to demand ischemia in the setting of acute illness and/or underlying renal insufficiency Continue to trend troponin Cardiology consulted --added low-dose metoprolol Resting echo showed mild concentric LVH. Moderate sized apical, inferior and posterior wall motion abnormality with hypokinesis to akinesis of the segment EF 45-50 % improved slightly compare to previous echo Continue nitrate, Plavix, statin, Zetia and (metoprolol started during this admission ) (6) CVA (cerebral vascular accident): History of with chronic right-sided facial droop Family believes drooping may be worse than baseline and also speech is not as clear Brain MRI showed Old infarcts and age-related changes. No acute abnormalities and in particular no acute infarct is seen. ECHO showed no evidence of interatrial shunt Carotid u/s showed significant atherosclerotic plaque involving the left carotid bulb and origin of the left internal carotid artery with findings characteristic of 50-69% stenosis using velocity criteria. Continue Plavix, statin, Zetia (7) Cardiomyopathy, ischemic: (8) Presence of combination internal cardiac defibrillator (ICD) and pacemaker: Resting echo showed mild concentric LVH. Moderate sized apical, inferior and posterior wall motion abnormality with hypokinesis to akinesis of the segment EF 45-50 % improved slightly compare to previous echo Has been intolerant to medications due to ongoing orthostasis Not on routine diuretics Monitor volume status closely cardiology on board Continue Metoprolol 12.5 BID Keep K above 4 and Mg above 2 Ok from cardiology standpoint to discharge home (9) Paroxysmal A-fib: s/p cardioversion and maintained NSR -- not currently on any rate or rhyth m controlling medications telemonitor showed 16 beats Vtach No anticoagulation due to GI bleeding history Continue Metoprolol and Isosorbide Mononitrate Electrolytes imbalance K 3.7 and Mg 1.6 today Continue replaced electrolytes Keep K above 4 and Mg above 2 Continue mg and K supplement Continue monitor BMP (10) Orthostasis: On Florinef (11) Diabetes mellitus, type 2: Hgb A1c 6.2 04/2022 Hold oral agents and utilize NovoLog per protocol while hospitalized (12) DVT prophylaxis: SQ heparin Disposition Requested recent hospital visit record since pt's said she received a call that his blood cx was positive repeat cx showed no growth Total Time Total Time Spent Total Time Spent (In Minutes): 35 minutes Discharge Plan Discharge Items Patient Disposition: Home - Self-Care Reason For Visit: PNEUMONIA, MCKENZIE Discharge Diagnosis: Pneumonia: Acute kidney injury superimposed on CKD: Elevated troponin: Coronary artery disease: CVA (cerebral vascular accident): Cardiomyopathy, ischemic: Presence of combination internal cardiac defibrillator (ICD) and pacemaker: Electrolytes imbalance Diabetes mellitus, type 2: Activity: Resume your previous activity Non-emergency contact: Primary Care Provider and Corporate Aircraft Mechanic Call non-emergency contact if: you have any medication questions and your symptoms worsen Follow-up/Referrals: Mukul Corey DO [Family Provider] - (Date & Time 06/27/2022 10:30 AMProviHu Jr., [facility] Chava Bell MD [Primary Care Provider] - (Date & Time 05/21/2022 9:00 Benita Bell [facility] ) Diet: Heart Healthy Addtl Attending Provider Instructions: Follow up with your primary care provider 05/21/2022 9:00 AM Chava Bell MD Family [facility] Follow up with your cardiology 06/27/2022 10:30 AM Mukul Corey Jr., [facility] Check BMP and magnesium in 1 week to monitor your electrolytes and renal function Please avoid nephrotoxic agents such as NSAIDs ( Motrin, aleve, Ibuprofen, n aproxen,...) Hold today dose meformin due to elevate creatinine Fall precaution Pending Studies at Discharge: No Stand-Alone Forms: My [facility], Smoking Cessation Medications and DC Order Prescriptions: New magnesium oxide 400 mg (241.3 mg magnesium) Tablet 400 mg PO BID 30 Days Qty: 60 RF: 0 metoprolol succinate 25 mg Tablet Extended Release 24 Hr 12.5 mg PO BID 30 Days Qty: 30 RF: 0 potassium chloride [K-Tab] 20 mEq tablet extended release 20 meq PO DAILY Qty: 30 RF: 0 doxycycline hyclate 100 mg tablet 100 mg PO BID 3 Days Qty: 6 RF: 0 Continued isosorbide mononitrate 30 mg Tablet Extended Release 24 Hr 30 mg PO QAM Qty: 0 RF: 0 metformin 500 mg Tablet 500 mg PO BID Qty: 0 RF: 0 acetaminophen [Acetaminophen Extra Strength] 500 mg Tablet 1,000 mg PO UD PRN (Reason: Pain) Qty: 0 RF: 0 nitroglycerin 0.4 mg Tablet, Sublingual 0.4 mg sublingual Q5M PRN (Reason: Chest Pain) Qty: 0 RF: 0 tamsulosin 0.4 mg Capsule 0.4 mg PO DAILY RF: 0 rosuvastatin 40 mg Tablet 40 mg PO HS RF: 0 montelukast 10 mg tablet 10 mg PO DAILY RF: 0 clopidogrel 75 mg Tablet 75 mg PO DAILY RF: 0 ezetimibe 10 mg tablet 10 mg PO DAILY RF: 0 Centrum Silver 0.4-300-250 mg-mcg-mcg Tablet 1 tab PO DAILY RF: 0 cyanocobalamin (vitamin B-12) [Vitamin B-12] 5,000 mcg Tablet, Sublingual 5,000 mcg SUBLINGUAL DAILY RF: 0 indomethacin 50 mg Capsule 50 mg PO TID PRN (Reason: Pain) RF: 0 pregabalin 75 mg capsule 75 mg PO TID RF: 0 fludrocortisone 0.1 mg tablet 0.1 mg PO DAILY RF: 0 Discharge Orders: Discharge Order (Routine); Ordered 05/14/22 Ordered By: Beth Silva Admission Data Admit Date/Time: 05/10/22 14:15 Attending Provider: Beth Silva Admit Provider: Gi Quintero I. Primary Care Provider: Chava Bell Other Providers: Gi Quintero I.
== END 2022-05-14 15:33 | disposition home or self-care (01) | DRG 194 ==
LOC: ED 11:29 → SUATTDRO 14:15 → 1E 14:15 → 2S 05-13 02:56

== ENCOUNTER 2025-06-23 16:39 | Inpatient (IN) ==
[2025-06-23 17:13] LABS: Hematocrit (blood only) 39.8 % (42.0-52.0); Hemoglobin 13.1 g/dl (14.0-18.0); Immature Granulocytes # (auto) 0.01 K/uL (0.01-0.20); Immature Granulocytes % (auto) 0.2 %; Mean Corpuscular Hemoglobin 29.3 pg (25.0-34.0); Mean Corpuscular Volume 89.0 fL (80.0-100.0); Platelet Count 133 K/uL (130-400); RDW Standard Deviation 48.3 fL (36.4-46.3); Red Blood Count 4.47 M/uL (4.70-6.10); White Blood Count 4.68 K/ul (4.8-10.8)
--- NOTE | 2025-06-23 17:15 | Emergency Department Note ---
Impression & Plan Acute exacerbation of CHF (congestive heart failure), NSVT (nonsustained ventricular tachycardia), Ambulatory dysfunction, Generalized weakness ED Provider Note NAME: KEYANA CHAVIS AGE: 79 SEX: M : 1945 ARRIVES VIA: Walk-In INFORMANT: Patient, ED PROVIDER(S): Sanford Luis DO CHIEF COMPLAINT: multiple complaints HPI: This is a 79-year-old male with the PMHx of CAD s/p CABG in 1999 and, CVA on antiplatelet therapy, CHF, atrial fibrillation, ICD, CKD, DM 2, and ?dementia presenting to [facility] for further evaluation of multiple complaints. Patient is accompanied by his who provide additional history. Per the patient's , the patient has had significant fluctuations in blood pressure over the last 2 months. They estimate that the blood pressure ranges from systolic blood pressures of the 70s to hypertensive to the 170s. Patient struggles to ambulate. Has been ataxic. He has had a poor appetite. Patient has had significant shortness of breath with minimal exertional activities. Patient reports that he is unable to lie flat. He does endorse orthopnea. Patient states he is have difficulty sleeping. Patient has gained approximately 10 pounds in the last few months. They also note intermittent episodes of diaphoresis and chills. He feels very lightheaded. No cough or congestion. Denies chest pain or palpitations. No shortness of breath. They deny abdominal pain, nausea and vomiting. No urinary complaints. No recent changes in bowel movements. Patient denies recent changes in medications or OTC supplements. Patient offers no other complaints, today. ADDITIONAL HISTORY OBTAINED: Per HPI Chronic Medical/Social Conditions Affecting Care: Per HPI PAST MEDICAL HISTORY: See Below PAST SURGICAL HISTORY: See Below FAMILY HISTORY: See Below SOCIAL HISTORY: See Below HOME MEDICATIONS: See Below ALLERGIES: See Below VITALS: See Below PHYSICAL EXAMINATION: GENERAL: Sitting up in bed, alert, well appearing, well nourished, no distress, non-toxic EYE EXAM: normal conjunctiva. PERRL and EOM's grossly intact. OROPHARYNX: no exudate, no erythema, lips, buccal mucosa, and tongue normal and mucous membranes are moist NECK: supple, no nuchal rigidity, no adenopathy, non-tender LUNGS: Clear to auscultation. Normal chest wall mechanics HEART: no murmurs, regular rate, irregular rhythm ABDOMEN: abdomen soft, non-tender, normo-active bowel sounds, no masses, no rebound or guarding. BACK: Back is symmetrical on inspection and there is no deformity, no midline tenderness, no CVA tenderness. SKIN: no rashes and no bruising UPPER EXTREMITIES: upper extremities are grossly normal. LOWER EXTREMITIES: Trace to 1+ pitting edema. NEURO EXAM: Normal sensorium, cranial nerves II-XII grossly intact, normal speech, no gross weakness of arms, no gross weakness of legs. No drift. Finger to nose intact. Gross sensation intact. MEDICAL DECISION MAKING: Differential diagnoses includes but not limited to ACS, unstable angina, dysrhythmia, PNA, hypervolemia/pulmonary edema, CHF exacerbation, COPD exacerbation, PE, pneumothorax, pericardial effusion, cardiac tamponade, anxiety/psychogenic, viral URI, vascular dementia, CVA, TIA, hydrocephalus In summary, this is a 79 year old male who presented with generalized weakness and concern for CHF exacerbation. Differential as above. Nursing notes and pertinent past medical records reviewed. Vital signs reviewed and the patient is hypertensive but otherwise afebrile and HDS. History and presentation revealed PCP visit, today, with concerns for CHF. His symptoms have been progressive over the 1.5 months. No acute symptoms. I reviewed medications. Patient does appear to be on stroke with oxygen therapy. Patient has no evidence of large vessel occlusion on exam. Will check CT head given the patient's complaints today. Physical examination revealed as above. As a result of my initial evaluation, plan for device interrogation while in the ED. Reviewed records, appears to have [employer] AICD in place. Diagnostics interpreted by me include EKG and cardiac monitoring as listed below: -Cardiac Monitoring: An order was placed for continuous cardiac monitoring. The monitor shows a rate of 50-70s with regular rhythm. -ECG: EKG independently interpreted by me yet atrial paced rhythm with frequent PVCs. Rate of 71ms. -CXR independently interpreted by me reveals no evidence of focal consolidation to suggest pna. No large pneumothorax or pleural effusion. Possible consolidation on the L. Appears to have mild interstitial edema and cardiomegaly. Patient completed laboratory studies and imaging. Results independently interpreted by me are Mild leukopenia and anemia that are stable as compared to prior. Does have stable CKD. Mild hyperglycemia noted. Troponin is within normal limits. BNP is slightly elevated at 310. The patient was managed with IV diuresis. CTH independently interpreted by me reveals no evidence of ICH. No significant hydrocephalus. No major skull fractures. CTH does not demonstrate findings to suggest an etiology of the patient's symptoms or presentation, today. There is evidence of prior stroke on this examination. Given ambulatory dysfunction, will obtain MRI brain for further evaluaiton of stroke. 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 He is having runs of nonsustained V. tach but not significant. Discussed further that the device is functioning appropriately. the patient has approximately 8 runs of nonsustained V. tach per hour. He also has approximately 313 single PVCs per hour. Patient does appear mildly hypervolemic on physical examination. Given this plus elevated BNP and his symptoms, we will give IV diuresis. Plan for load of Lasix with IV push 60 mg. Ultimately, the decision was made to admit the patient for CHF exacerbation and functional decline with ambulatory dysfunction. It was recommended to admit this patient at 1925. I discussed the case with the hospitalist service via [employer] and they are agreeable to admit the patient to their services by Dr. Nelson at 1932. Based on the above, including the patient's age, coexisting illnesses, labs, imaging, and exam findings the decision to treat as an inpatient. I discussed the patient with the hospitalist team who recommended admission to their services. They received the medications, treatments, interventions indicated above and their condition remained guarded. I discussed my findings with the patient and their family and they understand and agree with the treatment plan. All patient / family questions were answered to their satisfaction. Consults/Care Managements Discussions: Per [facility] ER treatment provided: See above Procedures:none Critical Care: None The chart was completed utilizing [employer] Speech voice recognition software. Grammatical errors, random word insertions, pronoun errors, and incomplete sentences are an occasional consequence of this system due to software limitations, ambient noise, and hardware issues. Any formal questions or concerns about the content, text, or information contained within the body of this dictation should be directly addressed to the physician for clarification. Past Med/Surg History Problem List Generalized weakness (Acute) Ambulatory dysfunction (Acute) NSVT (nonsustained ventricular tachycardia) (Acute) Acute exacerbation of CHF (congestive heart failure) (Acute) Acute on chronic heart failure with reduced ejection fraction (HFrEF, <= 40%) Lab test negative for COVID-19 virus (Acute) Chronic bundle branch block LBBB Dyslipidemia HTN (hypertension) Gout of knee Left knee DJD NSVT (nonsustained ventricular tachycardia) NSTEMI (non-ST elevated myocardial infarction) S/P repair of paraesophageal hernia (Chronic) History of Amie fundoplication (Chronic) H/O umbilical hernia repair (Chronic) x2 TIA (transient ischemic attack) (Chronic) Gout (Chronic) GERD (gastroesophageal reflux disease) (Chronic) Peripheral vascular disease (Chronic) Status post cataract extraction (Chronic) Status post repair of ventral hernia (Chronic) Status post tonsillectomy (Chronic) Medical History Orthostasis Acute kidney injury superimposed on CKD Acute hypokalemia Elevated troponin Pneumonia Sepsis Presence of combination internal cardiac defibrillator (ICD) and pacemaker 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 CKD (chronic kidney disease), stage III Cardiomyopathy, ischemic CKD (chronic kidney disease) stage 3, GFR 30-59 ml/min Elevated troponin LBBB (left bundle branch block) Atrial fibrillation with rapid ventricular response Stenosis of left internal carotid artery Ischemic cardiomyopathy DVT prophylaxis Paroxysmal A-fib CVA (cerebral vascular accident) GERD (gastroesophageal reflux disease) Diabetes Hypertension Coronary artery disease 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 Diabetes mellitus, type 2 Surgical History History of coronary artery stent placement LAD and RCA 2019 S/P CABG x 2 Family History Mother Stroke Denies family history of Crohn's disease Colorectal cancer Ulcerative colitis Social History Smoking Status: Former smoker Tobacco Type: Cigarettes Smoking End Date: 1988; Second Hand Exposure: No; Do You Dip or Chew Tobacco: No; Hx Alcohol Use: Yes Alcohol type: beer Hx Substance Use: No Preferred Language: Welsh Communication Ability: Effective Communication Ability Comment: [phone] Permit Technician Required: No Beliefs That Will Affect Care: None marital status: Current Living Situation: Spouse current occupation: Retired Other Information That Helps Us Care for You: No Feels Safe at Home: Yes Safety Concerns: Feels Safe At This Time Assistive Devices: Cane, Hearing Aid - Bilateral, Walker and Wheelchair Assistive Devices Comment: has assistive devices at home but does not use, uses wheelchair only w/ dog Allergies Allergies Allergy/AdvReac Type Severity Reaction Status Date / Time No Known Allergies Allergy Verified 05/04/24 00:08 Home Meds Home Medications Medication Instructions Recorded Confirmed isosorbide mononitrate 30 mg 30 mg PO QAM #0 tabs 08/12/14 06/23/25 tablet,extended release 24 hr nitroglycerin 0.4 mg sublingual 0.4 mg sublingual Q5M PRN Chest 08/15/17 06/23/25 tablet Pain ##0 rosuvastatin 40 mg tablet 40 mg PO QAM 03/30/19 06/23/25 tamsulosin 0.4 mg capsule 0.8 mg PO DAILY 03/30/19 06/23/25 clopidogrel 75 mg tablet 75 mg PO DAILY 03/15/21 06/23/25 montelukast 10 mg tablet 10 mg PO DAILY 03/15/21 06/23/25 ezetimibe 10 mg tablet 10 mg PO DAILY 07/29/21 06/23/25 pregabalin 75 mg capsule 75 mg PO QID 05/10/22 06/23/25 ascorbic acid (vitamin C) 1,000 mg 1 g PO HS 10/18/23 06/23/25 tablet (Vitamin C) cyanocobalamin (vitamin B-12) 500 mcg PO HS 10/18/23 06/23/25 1,000 mcg tablet (Vitamin B-12) finasteride 5 mg tablet (Proscar) 5 mg PO DAILY 10/18/23 06/23/25 metformin 500 mg tablet,extended 500 mg PO QPM 05/04/24 06/23/25 release 24 hr metoprolol succinate 25 mg 12.5 mg PO QAM 05/04/24 06/23/25 tablet,extended release 24 hr furosemide 20 mg tablet 20 mg PO DAILY 06/23/25 06/23/25 spironolactone 25 mg tablet 12.5 mg PO DAILY 06/23/25 06/23/25 Results & Data (ED) Vital Signs Vital Signs - 24 hr 06/23/25 16:41 06/23/25 17:04 06/23/25 17:21 Temperature 36.6 C Temperature Source Temporal Artery Scan Pulse Rate 65 75 69 Pulse Rate from SpO2 Sensor 73 Respiratory Rate 18 23 Respiratory Effort / Characteristics Non-Labored Spontaneous Respiratory Depth Normal Respiratory Pattern Regular Blood Pressure 140/78 154/91 H Blood Pressure Mean 98 112 Blood Pressure Position Sitting Pulse Oximetry 94 94 Oxygen Delivery Method Room Air Room Air Oxygen Flow Rate Sepsis Recent Fever Within 48 Hours No Sepsis New/Unexplained Change in Mental Status No Sepsis Action Taken by Nursing No Action Required 06/23/25 17:47 06/23/25 17:47 06/23/25 18:15 Temperature Temperature Source Pulse Rate 74 72 Pulse Rate from SpO2 Sensor 48 L Respiratory Rate 18 Respiratory Effort / Characteristics Respiratory Depth Respiratory Pattern Blood Pressure 140/67 Blood Pressure Mean 91 Blood Pressure Position Pulse Oximetry 96 96 96 Oxygen Delivery Method Room Air Room Air Room Air Oxygen Flow Rate 0 Sepsis Recent Fever Within 48 Hours Sepsis New/Unexplained Change in Mental Status Sepsis Action Taken by Nursing 06/23/25 18:39 06/23/25 19:33 Temperature Temperature Source Pulse Rate 74 74 Pulse Rate from SpO2 Sensor 59 L 56 L Respiratory Rate 17 17 Respiratory Effort / Characteristics Respiratory Depth Respiratory Pattern Blood Pressure 148/91 H 171/90 H Blood Pressure Mean 110 117 Blood Pressure Position Pulse Oximetry 95 96 Oxygen Delivery Method Room Air Room Air Oxygen Flow Rate Sepsis Recent Fever Within 48 Hours Sepsis New/Unexplained Change in Mental Status Sepsis Action Taken by Nursing Laboratory Data 06/23/25 16:53 06/23/25 16:53 Lab Results 06/23/25 Range/Units 16:53 WBC 4.68 L (4.8-10.8) K/ul RBC 4.47 L (4.70-6.10) M/uL Hgb 13.1 L (14.0-18.0) g/dl Hct 39.8 L (42.0-52.0) % MCV 89.0 (80.0-100.0) fL MCH 29.3 (25.0-34.0) pg MCHC 32.9 (32.0-36.0) g/dL RDW Std Deviation 48.3 H (36.4-46.3) fL RDW Coeff of Leela 15.1 H (11.5-14.5) % Plt Count 133 (130-400) K/uL MPV 12.2 (9.4-12.4) fL Immature Gran % (Auto) 0.2 % Neut % (Auto) 61.6 % Lymph % (Auto) 26.1 % [place] % (Auto) 10.0 % Eos % (Auto) 1.5 % Baso % (Auto) 0.6 % Neut # (Auto) 2.88 (1.40-6.50) K/uL Lymph # (Auto) 1.22 (1.20-3.40) K/uL [place] # (Auto) 0.47 (0.11-0.59) K/uL Eos # (Auto) 0.07 (0.00-0.50) K/uL Baso # (Auto) 0.03 (0.00-0.20) K/uL Immature Gran # (Auto) 0.01 (0.01-0.20) K/uL PT 10.6 (9.0-12.0) Seconds INR 1.0 (0.9-1.1) APTT 25 (21-31) Seconds PTT Ratio 0.9 Sodium 140 (136-145) mmol/L Potassium 4.2 (3.5-5.1) mmol/L Chloride 109 H (98-107) mmol/L Carbon Dioxide 24 (21-32) mmol/L Anion Gap 7 (3-11) BUN 40 H (6-23) mg/dl Creatinine 1.54 H (0.6-1.4) mg/dl Est Cr Clr Drug Dosing Not Reportable eGFR 46.17 BUN/Creatinine Ratio 26.0 H (10-20) Glucose 218 H (70-99(Fasting)) mg/dl Calcium 9.0 (8.6-10.3) mg/dl Phosphorus 3.6 (2.5-4.9) mg/dl Magnesium 2.2 (1.7-2.4) mg/dl Total Bilirubin 0.6 (0.2-1.0) mg/dl AST 38 (13-39) U/L ALT 38 (7-52) U/L Alkaline Phosphatase 62 (34-104) U/L Troponin I High Sens 8.4 (0-20) pg/ml B-Natriuretic Peptide 310 H (0-100) pg/ml Total Protein 6.8 (6.0-8.3) gm/dl Albumin 4.1 (3.4-5.0) gm/dl Globulin 2.7 (2.5-4.0) gm/dl Albumin/Globulin Ratio 1.5 (0.9-2) Administered Medications Heparin Sodium (Porcine) (Heparin Sod 5,000 Unit/0.5 Ml Vial) 5,000 units SQ Q8 GITA Stop: 07/23/25 23:12 Last Admin: 06/23/25 23:38 Dose: 5,000 units Documented By: TLB Insulin Aspart (Insulin Aspart Per Unit Charge) 0 units SC ACHS GITA Stop: 07/23/25 23:12 Last Admin: 06/23/25 23:30 Dose: Not Given Documented By: MED Pregabalin (Pregabalin 75 Mg Cap) 75 mg PO QID GITA Stop: 07/23/25 23:12 Last Admin: 06/23/25 23:38 Dose: 75 mg Documented By: TLB Discontinued Medications Furosemide (Furosemide 40 Mg/4 Ml Vial) 60 mg IV ONE ONE Stop: 06/23/25 19:12 Last Admin: 06/23/25 19:15 Dose: 60 mg Documented By: BLD Hydralazine HCl (Hydralazine Hcl 25 Mg Tab) 25 mg PO NOW STA Stop: 06/23/25 23:27 Last Admin: 06/23/25 23:53 Dose: 25 mg Documented By: TLPato Imaging Data Radiologist's Impression: Chest X-Ray 06/23/25 16:44 Exam: X-ray chest 1 view not provided Reason for exam: Chest pain Previous studies: None FINDINGS: Wire sternal sutures and clips are seen. Left-sided pacemaker/defibrillator is present. The heart is moderately enlarged with mild pulmonary venous hypertension but no barbie edema or acute lung infiltrate identified. No pleural effusion or pneumothorax is noted. IMPRESSION: 1. Moderate cardiomegaly with mild pulmonary venous hypertension, status post CABG and pacemaker placement. 2. Otherwise negative for acute disease. Electronically signed by Mukul Dawkins 06-23-2025 6:[address] 06/23/25 17:13 Exam: CTA head/brain without contrast. Reason for exam: Ambulatory dysfunction, ataxia. Previous studies: None FINDINGS: No intracranial mass, hemorrhage or edema is seen. There is a 2.6 cm focal area of decreased attenuation in the periphery of the right posterior cerebellar hemisphere consistent most likely within infarct of uncertain age. No mass effect or hemorrhage is seen. No extra-axial fluid collection is seen. Some diffuse atrophy and lucency seen in the deep white matter. No midline shift is seen. Extensive calcific atherosclerotic vascular changes seen in the visualized arterial vessels. Normal position and the visualized sinuses and mastoids maintained bilaterally. No acute process of the bony calvarium is seen. IMPRESSION: 1. Area of encephalomalacia/edema peripherally in the right cerebellar hemisphere consistent most often with an area of ischemic infarction of uncertain chronicity. The time course of this could be better evaluated with MRI study if indicated. 2. No evidence of mass or hemorrhage. 3. Mild chronic atrophy and lucency in the deep white matter most compatible with chronic ischemic angiopathy. Electronically signed by Mukul Dawkins 06-23-2025 6:16 PM Carotid Doppler Study 06/23/25 19:33 Exam(s): US CAROTID EXAM: US Duplex Bilateral Extracranial Arteries CLINICAL HISTORY: Reason for exam: weakness/dizziness. TECHNIQUE: Real-time duplex ultrasound scan of the extracranial arteries integrating B-mode two-dimensional vascular structure, Doppler spectral analysis and color flow Doppler imaging. COMPARISON: No relevant prior studies available. FINDINGS: Right common carotid artery: Right common carotid artery 72 cm/sec. No occlusion or significant stenosis on color flow and spectral Doppler imaging. Right internal carotid artery: Right internal carotid artery 98 cm/sec. No occlusion or significant stenosis on color flow and spectral Doppler imaging. Right external carotid artery: Right external carotid artery 100 cm/sec. No occlusion or significant stenosis on color flow and spectral Doppler imaging. Right vertebral artery: Right vertebral artery 43 cm/sec. Right ICA/CCA ratio: Right ICA/CCA ratio 1.4. Left common carotid artery: Left common carotid artery 75 cm/sec. No occlusion or significant stenosis on color flow and spectral Doppler imaging. Left internal carotid artery: Left internal carotid artery 108 cm/sec. [id number] atherosclerotic plaque in the left carotid bifurcation. No occlusion or significant stenosis on color flow and spectral Doppler imaging. Left external carotid artery: Left external carotid artery 142 cm/sec. No occlusion or significant stenosis on color flow and spectral Doppler imaging. Left vertebral artery: Left vertebral artery 66 cm/sec. Left ICA/CCA ratio: Left ICA/CCA ratio 2.8. Lymph nodes: Unremarkable. No lymphadenopathy. CAROTID STENOSIS REFERENCE USING IAC CRITERIA: Mild - <50% stenosis. ICA PSV is less than 180 cm/s and plaque or intimal thickening is visible. Moderate - 50-69% stenosis. ICA PSV is 180 to 230 cm/s and plaque is visible. Severe - 70-94% stenosis. ICA PSV is more than 230 cm/s and visible plaque with lumen narrowing is seen. Near occlusion - 95-99% stenosis. ICA PSV is variable and significant plaque with luminal narrowing is seen. Occluded - 100% stenosis. No flow identified. IMPRESSION: Velocity measurements and velocity ratios are consistent with. 50-69% stenosis of the proximal left internal carotid artery and less than 50% stenosis of the right. Electronically signed by: John Palumbo MD 06/23/25 22:46 PM Discharge Plan Visit Data Chief Complaint: Swelling/Edema to Extremity Stated Complaint: FLUID ED Provider: Sanford Luis Discharge Problem: Acute exacerbation of CHF (congestive heart failure), NSVT (nonsustained ventricular tachycardia), Ambulatory dysfunction, Generalized weakness Patient Disposition: Admitted As Inpatient Condition: Fair Discharge Instructions Interventions: ED Discharge Assessment Last Done: 06/23/25 22:45
[2025-06-23 17:30] LABS: Alanine Aminotransferase 38 U/L (7-52); Albumin Globulin Ratio 1.5 (0.9-2); Alkaline Phosphatase 62 U/L (34-104); Anion Gap 7 (3-11); Bilirubin,Total 0.6 mg/dl (0.2-1.0); Blood Urea Nitrogen 40 mg/dl (6-23); Calcium 9.0 mg/dl (8.6-10.3); Carbon Dioxide 24 mmol/L (21-32); Chloride 109 mmol/L (98-107); Globulin 2.7 gm/dl (2.5-4.0); Glucose 218 mg/dl (70-99(Fasting)); Potassium 4.2 mmol/L (3.5-5.1); Sodium 140 mmol/L (136-145); Total Protein 6.8 gm/dl (6.0-8.3)
[2025-06-23 17:43] LABS: Magnesium 2.2 mg/dl (1.7-2.4)
[2025-06-23 17:46] LABS: INR 1.0 (0.9-1.1); Partial Thromboplastin Time 25 Seconds (21-31); Prothrombin Time 10.6 Seconds (9.0-12.0)
--- NOTE | 2025-06-23 18:16 | CT Scan Report ---
Exam: CTA head/brain without contrast. Reason for exam: Ambulatory dysfunction, ataxia. Previous studies: None FINDINGS: No intracranial mass, hemorrhage or edema is seen. There is a 2.6 cm focal area of decreased attenuation in the periphery of the right posterior cerebellar hemisphere consistent most likely within infarct of uncertain age. No mass effect or hemorrhage is seen. No extra-axial fluid collection is seen. Some diffuse atrophy and lucency seen in the deep white matter. No midline shift is seen. Extensive calcific atherosclerotic vascular changes seen in the visualized arterial vessels. Normal position and the visualized sinuses and mastoids maintained bilaterally. No acute process of the bony calvarium is seen. IMPRESSION: 1. Area of encephalomalacia/edema peripherally in the right cerebellar hemisphere consistent most often with an area of ischemic infarction of uncertain chronicity. The time course of this could be better evaluated with MRI study if indicated. 2. No evidence of mass or hemorrhage. 3. Mild chronic atrophy and lucency in the deep white matter most compatible with chronic ischemic angiopathy. Electronically signed by Mukul Dawkins 06-23-2025 6:16 PM
--- NOTE | 2025-06-23 18:18 | XRay Report ---
Exam: X-ray chest 1 view not provided Reason for exam: Chest pain Previous studies: None FINDINGS: Wire sternal sutures and clips are seen. Left-sided pacemaker/defibrillator is present. The heart is moderately enlarged with mild pulmonary venous hypertension but no barbie edema or acute lung infiltrate identified. No pleural effusion or pneumothorax is noted. IMPRESSION: 1. Moderate cardiomegaly with mild pulmonary venous hypertension, status post CABG and pacemaker placement. 2. Otherwise negative for acute disease. Electronically signed by Mukul Dawkins 06-23-2025 6:18 PM
[2025-06-23] MEDS: FUROSEMIDE 40 MG/4 ML VIAL IV ONE (19:15)
--- NOTE | 2025-06-23 19:32 | History & Physical Report ---
Date of Service June 23, 2025 Assessment & Plan (1) Acute on chronic heart failure with reduced ejection fraction (HFrEF, <= 40%): (2) Presence of combination internal cardiac defibrillator (ICD) and pacemaker: (3) LBBB (left bundle branch block): Plan Mr. Tulio Becerra is a 79 year old gentleman with past medical history notable for HLD, Type 2 DM, Diabetic neuropathy, Diaphragmatic hernia, Asymptomatic carotid artery stenosis, HTN, CKD 3a, Chronic heart failure(HFrecEF), CAD, ischemic cardiomyopathy, PAF, PVD, AICD, iron deficiency anemia presented to [facility] ED due to progressive weakness, liable blood pressures, and weight gain. Patient admitted to med/surg for management of heart failure and evaluation of progressive weakness with concern for progressive decline iso possible vascular dementia. MRI is not able to be obtained as left ventricular lead is not MRI compatible. Blood pressures relatively elevated. Will continue with home GDMT with hold parameters. #Acute on chronic heart failure with previously recovered EF from 30% to 40% s/p AICD 2020 #Coronary artery disease S/P CABG x2 with a FOLEY to the LAD and vein graft to the OM with follow-up STEMI and collapse of the vein graft, PCI to the LAD and RCA March 2019 revealing a patent FOLEY #Nonsustained ventricular tachycardia #Chronic LBBB #Ischemic cardiomyopathy, HFrecEF 40% 2023 - Dry weight:262 lbs, on admisison 276lbs - Home diuretics: Lasix 20mg daily - GDMT: *BetaB: Continue metoprolol succinate daily, will increase to 25 mg daily *RAAS: Not on ACEi/ARB given history of liable blood pressures *Anam: Continue spironolactone for now with hold parameters *SGLT: Start Jardiance 25mg for HF/DM *Vasodilator: Continue Imdur *ICD: placed 2020 Troponin negative, BNP elevated 310 (seemingly higher on op draws) - Will hold on aggressive diuresis and assess am labs - Strict I/Os, daily weights -Cardiology consult for recommendations on gdmt optimization -Updating ECHO -admit med/surg #Ambulatory Dysfunction, shuffling gait #Mild cognitive impairment #History of CVA stroke reportedly at 30 yo, unclear eitology Follow neurology previously with a MoCA of Continue Sarma Alvarado Neurology consultation: conflicting op documentation with blood pressure targets in light of significant vascular stenosis--notes recommending <130 and others recommending "to keep BP on higher side to improve cerebral blood flow"; clarification for ideal goals iso symptoms and concern for vascular dementia Update A1C, lipid, TSH, b12, folate, vit D PT/OT #Paroxysmal atrial fibrillation, S/P PBALO/DCCV 03/16/2021 No longer on amiodarone and Eliquis monitor on tele continue metoprolol # Diabetes type 2 Last A1C 6.5% 02/2025 sliding scale starting jardiance hold home metformin for now #CKDIIIa reviewed OP cr, baseline for last year 1.1-1.5 Given elevated BUN/Cr ratio, will opt to hold further diuresis and monitor renal function at this time Trend BMP in am #Carotid artery stenosis- Follows with Vascular #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 #Peripheral arterial disease with failed PTCA 04/2016 Brain MRA Occluded or nearly occluded bilateral MCA's Occluded or nearly occluded R posterior cerebral artery Prior Carotid studies: Asymptomatic LICA 50-69% stenosis, Asymptomatic < 50% ALISSA stenosis Followed Vascular last in 2021 Continue plavix and statin Carotid dopplers ordered plan to resestablish OP v consult vascular contingent on above results #chronic normocytic anemia #EDGAR historically followed Heme/Onc for venofer infusions hgb at baselin of 12-13 repeat iron studies and optimize as able iso weakness DVT ppx heparin sq Full code admit med/tele PCP Dr Bell Admission and Anticipated Discharge Date Admission Date: Time spent evaluating patient, direct bedside care, chart review, placing orders, interpretation of diagnostic studies, discussion with consultants, patient, and family members, as well as other required patient management activities is 80 minutes. History of Present Illness Chief Complaint: Weakness Primary Care Provider: Chava Bell MD Mr. Tulio Becerra is a 79 year old gentleman with past medical history notable for HLD, Type 2 DM, Diabetic neuropathy, Diaphragmatic hernia, Asymptomatic carotid artery stenosis, HTN, CKD 3a, Chronic heart failure(HFrecEF), CAD, ischemic cardiomyopathy, PAF, PVD, AICD, iron deficiency anemia presented to [facility] ED due to progressive weakness, liable blood pressures, and weight gain. History was gathered with assistance from , Sheri, at bedside. Patient with progressive memory issues, however it has been worse in the last month; in fact a constellation of chronic symptoms seems to have progressively worsened prompting presentation to ED. In this time, patient experiencing fluctuating blood pressures as low as 70s systolic. has been encouraging significant water intake, with some improvement. She notes these lower pressure typically mid afternoon. Patient has experienced sweats and dizziness, but hasn't correlated these events to low pressures. This is more sporadic, including episodic chills. Patient noting more shortness of breath while laying down, now prompting him to sleep in his recliner. He remarks it to be more of a nasal congestion than a sensation of dyspnea, but still uncomfortable. He has noted more dyspnea on exertion, however, stating that he would not be able to walk across the ED. He does ambulate with a walker with longer distances and has an electric cart, but recently in the house he has been "furniture" walking. Additionally, his gait has become more "shuffling" in nature, where states last month he could take deliberate steps. also mentions his memory has declined notably. The patient frequently walks into rooms and forgets his reason for going in the room; however, she denies any noted hallucinations or other behavioral concerns. He does have a history of a stroke at 30 years old of unclear etiology.This has resulted in right facial droop and right hand weakness with sensory deficit. He notes that he has been drooling more intermittently, but denies any swallowing deficits. He states that his dry weight is typically 262 lbs, but he is now 276 lbs. He reports that his shorts have become more tight and his abdomen more full feeling--he denies any changes in his eating habits. He denies any cough, wheezing, chest pain, palpations. Reports urinary frequency, but chronic in nature. He denies bowel changes. He has continued all his medications as prescribed. He states he hasn't been on eliquis in years. He denies any Etoh use, no current tobacco ( quit 1988), no illicit drugs. In the ED, vitals were notable for BP of 140-170s, HR of 70s and O2 sat of 96 on room air Imaging revealed noted vascular congestion EKG a fib with PVCs noted ED interventions: IV lasix 60mg Patient to be admitted to med/tele for further evaluation and management of acute on chronic heart failure and possible progressive of vascular dementia contributing to weakness Allergies Allergy/AdvReac Type Severity Reaction Status Date / Time No Known Allergies Allergy Verified 05/04/24 00:08 Home Medications Medication Instructions Recorded Confirmed Type isosorbide mononitrate 30 mg 30 mg PO QAM #0 tabs 08/12/14 06/23/25 History tablet,extended release 24 hr nitroglycerin 0.4 mg sublingual 0.4 mg sublingual Q5M PRN Chest 08/15/17 06/23/25 History tablet Pain ##0 rosuvastatin 40 mg tablet 40 mg PO QAM 03/30/19 06/23/25 History tamsulosin 0.4 mg capsule 0.8 mg PO DAILY 03/30/19 06/23/25 History clopidogrel 75 mg tablet 75 mg PO DAILY 03/15/21 06/23/25 History montelukast 10 mg tablet 10 mg PO DAILY 03/15/21 06/23/25 History ezetimibe 10 mg tablet 10 mg PO DAILY 07/29/21 06/23/25 History pregabalin 75 mg capsule 75 mg PO QID 05/10/22 06/23/25 History ascorbic acid (vitamin C) 1,000 mg 1 g PO HS 10/18/23 06/23/25 History tablet (Vitamin C) cyanocobalamin (vitamin B-12) 500 mcg PO HS 10/18/23 06/23/25 History 1,000 mcg tablet (Vitamin B-12) finasteride 5 mg tablet (Proscar) 5 mg PO DAILY 10/18/23 06/23/25 History metformin 500 mg tablet,extended 500 mg PO QPM 05/04/24 06/23/25 History release 24 hr metoprolol succinate 25 mg 12.5 mg PO QAM 05/04/24 06/23/25 History tablet,extended release 24 hr furosemide 20 mg tablet 20 mg PO DAILY 06/23/25 06/23/25 History spironolactone 25 mg tablet 12.5 mg PO DAILY 06/23/25 06/23/25 History Past Med/Surg History Problem List Acute on chronic heart failure with reduced ejection fraction (HFrEF, <= 40%) Lab test negative for COVID-19 virus (Acute) Chronic bundle branch block LBBB Dyslipidemia HTN (hypertension) Gout of knee Left knee DJD NSVT (nonsustained ventricular tachycardia) NSTEMI (non-ST elevated myocardial infarction) S/P repair of paraesophageal hernia (Chronic) History of Amie fundoplication (Chronic) H/O umbilical hernia repair (Chronic) x2 TIA (transient ischemic attack) (Chronic) Gout (Chronic) GERD (gastroesophageal reflux disease) (Chronic) Peripheral vascular disease (Chronic) Status post cataract extraction (Chronic) Status post repair of ventral hernia (Chronic) Status post tonsillectomy (Chronic) Medical History Orthostasis Acute kidney injury superimposed on CKD Acute hypokalemia Elevated troponin Pneumonia Sepsis Presence of combination internal cardiac defibrillator (ICD) and pacemaker 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 CKD (chronic kidney disease), stage III Cardiomyopathy, ischemic CKD (chronic kidney disease) stage 3, GFR 30-59 ml/min Elevated troponin LBBB (left bundle branch block) Atrial fibrillation with rapid ventricular response Stenosis of left internal carotid artery Ischemic cardiomyopathy DVT prophylaxis Paroxysmal A-fib CVA (cerebral vascular accident) GERD (gastroesophageal reflux disease) Diabetes Hypertension Coronary artery disease 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 Diabetes mellitus, type 2 Surgical History History of coronary artery stent placement LAD and RCA 2019 S/P CABG x 2 Family History Mother Stroke Denies family history of Crohn's disease Colorectal cancer Ulcerative colitis Social History Smoking Status: Former smoker Tobacco Type: Cigarettes Second Hand Exposure: No; Do You Dip or Chew Tobacco: No; Hx Alcohol Use: Yes Alcohol type: beer Hx Substance Use: No Preferred Language: Malagasy Communication Ability: Effective Communication Ability Comment: [phone] Windows Phone Developer Required: No Beliefs That Will Affect Care: None marital status: Current Living Situation: Spouse current occupation: Retired Feels Safe at Home: Yes Assistive Devices: None Review of Systems Review of Systems: Constitutional: (-) fever/chills, (-) recent loss of weight, (-) appetite changes, (-) night sweats. Head: (-) headache, (-) dizziness. Eye: (-) blurring of vision, (-) double vision, (-) redness. Ear: (-) hearing loss, (-) discharge, (-) vertigo Nose: (-) discharge, (-) bleeding, (-) congestion, (-) post nasal drip. Throat: (-) sore throat, (-) hoarseness of voice, (-) odynophagia. Cardiovascular: (-) chest pain, (-) palpitations, (-) syncope, (+) orthopnea, (- ) PND, (-) leg swelling. Respiratory: (+) shortness of breath, (-) cough, (-) wheezing, (-) hemoptysis. Neuro: (-) weakness in extremities, (-) numbness, (-) tingling, (-) tremor. Gastrointestinal: (-) belly pain, (-) belly distension, (-) nausea, (-) vomiting, (-) diarrhea, (-) constipation, Genitourinary: (-) hematuria, (-) dysuria, (-) polyuria, (-) hesitancy, (+) frequency, chronic, (-) urinary incontinence. Musculoskeletal: (-) myalgia, (-) arthralgia. Skin: (-) rashes. Endocrine: (-) heat/cold intolerance. Psychiatry: (-) depression, (-) hallucination. Physical Exam Physical Exam: GENERAL APPEARANCE: AxOx4, generally well-appearing male, no acute distress. HEENT: NC, AT. MMM. EOMI, clear conjunctiva, oropharynx clear. Right facial droop (stable per ) predominately marked by downward turn of mouth and slight flattening of nasolabial fold NECK: Supple without lymphadenopathy. No stiffness or restricted ROM. HEART: Normal rate and regular rhythm, normal S1/S1, no m/r/g LUNGS: CTAB, moving air well. No crackles or wheezes are heard. ABDOMEN: Soft, nontender, slightly protuberant with good bowel sounds heard. BACK: No CVAT, no obvious deformity. EXTREMITIES: Without cyanosis, clubbing or edema. scar from prior knee replacment on right NEUROLOGICAL: Grossly nonfocal. Alert and oriented, moving all 4 extremities.facial droop as noted above, limited right hand home care liaison stength and poor adduction/abduction of digits 3-5 on right hand, reduced sensation, all chronic, however strength 5/5 in all proxmal muscle groups Skin: Warm and dry without any rash. Results & Data Results & Data Vital Signs (Past 12 Hours) Vital Signs Temp Pulse Resp BP Pulse Ox O2 Del Method O2 Flow Rate 06/23/25 18:39 74 17 148/91 H 95 Room Air 06/23/25 18:15 72 18 140/67 96 Room Air 06/23/25 17:47 74 96 Room Air 06/23/25 17:47 96 Room Air 0 06/23/25 17:21 69 23 154/91 H 94 Room Air 06/23/25 17:04 75 06/23/25 16:41 36.6 C 65 18 140/78 94 Room Air Laboratory Results Short CBC 06/23/25 Range/Units 16:53 WBC 4.68 L (4.8-10.8) K/ul Hgb 13.1 L (14.0-18.0) g/dl Hct 39.8 L (42.0-52.0) % Plt Count 133 (130-400) K/uL BMP 06/23/25 16:53 Sodium 140 Potassium 4.2 Chloride 109 H Carbon Dioxide 24 BUN 40 H Creatinine 1.54 H Glucose 218 H Calcium 9.0 Liver Function 06/23/25 Range/Units 16:53 Total Bilirubin 0.6 (0.2-1.0) mg/dl AST 38 (13-39) U/L ALT 38 (7-52) U/L Alkaline Phosphatase 62 (34-104) U/L Albumin 4.1 (3.4-5.0) gm/dl Diagnostic Findings Prior CT findings reviewed from 03/2024 in [facility]: FINDINGS: There is no intracranial mass or hemorrhage and there are no extra-axial collections. No mass effect or midline shift is present. There are multiple foci of encephalomalacia including in the right occipital lobe, left parietal lobe, adjacent to the central sulcus on the left, and in the deep white matter on the right with another focus in the left basal ganglia perhaps reflecting remote lacunar infarct versus large perivascular space. Parenchymal volume loss with mild ex vacuo enlargement of the ventricles is noted. The basal cisterns are patent. No calvarial abnormalities are evident. The orbits are unremarkable. The paranasal sinuses and mastoid air cells are clear. IMPRESSION: 1. No acute intracranial hemorrhage. 2. Multiple foci of encephalomalacia in the parenchyma as described above suggest areas of prior infarct. 3. Mild global volume loss Medications Administered Home Medications Medication Instructions Recorded Confirmed Last Taken isosorbide mononitrate 30 mg 30 mg PO QAM #0 tabs 08/12/14 06/23/25 05/03/24 tablet,extended release 24 hr nitroglycerin 0.4 mg sublingual 0.4 mg sublingual Q5M PRN Chest 08/15/17 06/23/25 Unknown tablet Pain ##0 rosuvastatin 40 mg tablet 40 mg PO QAM 03/30/19 06/23/25 05/03/24 tamsulosin 0.4 mg capsule 0.8 mg PO DAILY 03/30/19 06/23/25 05/03/24 clopidogrel 75 mg tablet 75 mg PO DAILY 03/15/21 06/23/25 05/03/24 montelukast 10 mg tablet 10 mg PO DAILY 03/15/21 06/23/25 05/03/24 ezetimibe 10 mg tablet 10 mg PO DAILY 07/29/21 06/23/25 05/03/24 pregabalin 75 mg capsule 75 mg PO QID 05/10/22 06/23/25 05/03/24 ascorbic acid (vitamin C) 1,000 mg 1 g PO HS 10/18/23 06/23/25 05/03/24 tablet (Vitamin C) cyanocobalamin (vitamin B-12) 500 mcg PO HS 10/18/23 06/23/25 05/03/24 1,000 mcg tablet (Vitamin B-12) finasteride 5 mg tablet (Proscar) 5 mg PO DAILY 10/18/23 06/23/25 05/03/24 metformin 500 mg tablet,extended 500 mg PO QPM 05/04/24 06/23/25 05/03/24 release 24 hr metoprolol succinate 25 mg 12.5 mg PO QAM 05/04/24 06/23/25 05/03/24 tablet,extended release 24 hr furosemide 20 mg tablet 20 mg PO DAILY 06/23/25 06/23/25 Unknown spironolactone 25 mg tablet 12.5 mg PO DAILY 06/23/25 06/23/25 Unknown
[2025-06-23 21:37] LABS: Appearance Urine Clear (Clear); Glucose Urine UA Negative (Negative)
[2025-06-23 21:57] LABS: Protein Creatinine Ratio Urine 0.3 (0-0.2); Total Protein Urine Random 4.7 mg/dl (0-11.9)
--- NOTE | 2025-06-23 22:47 | Ultrasound Report ---
Exam(s): US CAROTID EXAM: US Duplex Bilateral Extracranial Arteries CLINICAL HISTORY: Reason for exam: weakness/dizziness. TECHNIQUE: Real-time duplex ultrasound scan of the extracranial arteries integrating B-mode two-dimensional vascular structure, Doppler spectral analysis and color flow Doppler imaging. COMPARISON: No relevant prior studies available. FINDINGS: Right common carotid artery: Right common carotid artery 72 cm/sec. No occlusion or significant stenosis on color flow and spectral Doppler imaging. Right internal carotid artery: Right internal carotid artery 98 cm/sec. No occlusion or significant stenosis on color flow and spectral Doppler imaging. Right external carotid artery: Right external carotid artery 100 cm/sec. No occlusion or significant stenosis on color flow and spectral Doppler imaging. Right vertebral artery: Right vertebral artery 43 cm/sec. Right ICA/CCA ratio: Right ICA/CCA ratio 1.4. Left common carotid artery: Left common carotid artery 75 cm/sec. No occlusion or significant stenosis on color flow and spectral Doppler imaging. Left internal carotid artery: Left internal carotid artery 108 cm/sec. [id number] atherosclerotic plaque in the left carotid bifurcation. No occlusion or significant stenosis on color flow and spectral Doppler imaging. Left external carotid artery: Left external carotid artery 142 cm/sec. No occlusion or significant stenosis on color flow and spectral Doppler imaging. Left vertebral artery: Left vertebral artery 66 cm/sec. Left ICA/CCA ratio: Left ICA/CCA ratio 2.8. Lymph nodes: Unremarkable. No lymphadenopathy. CAROTID STENOSIS REFERENCE USING IAC CRITERIA: Mild - <50% stenosis. ICA PSV is less than 180 cm/s and plaque or intimal thickening is visible. Moderate - 50-69% stenosis. ICA PSV is 180 to 230 cm/s and plaque is visible. Severe - 70-94% stenosis. ICA PSV is more than 230 cm/s and visible plaque with lumen narrowing is seen. Near occlusion - 95-99% stenosis. ICA PSV is variable and significant plaque with luminal narrowing is seen. Occluded - 100% stenosis. No flow identified. IMPRESSION: Velocity measurements and velocity ratios are consistent with. 50-69% stenosis of the proximal left internal carotid artery and less than 50% stenosis of the right. Electronically signed by: John Palumbo MD 06/23/25 22:46 PM
[2025-06-23] MEDS ORDERED: DEXTROSE 50% 50 ML SYRINGE IV PRN (23:13)
[2025-06-23] MEDS ORDERED: ONDANSETRON INJ 2 MG/ML 2 ML VIAL IV PRN (23:13)
[2025-06-23] MEDS ORDERED: POLYETHYLENE (MIRALAX) 17 GM PACK PO PRN (23:13)
[2025-06-23] MEDS ORDERED: GLUCOSE 40% GEL 15 GM TUBE PO PRN (23:13)
[2025-06-23] MEDS ORDERED: CARBOHYDRATES FOR HYPOGLYCEMIA PO PRN (23:13)
[2025-06-23] MEDS ORDERED: GLUCOSE 10 TAB/TUBE PO PRN (23:13)
[2025-06-23] MEDS ORDERED: GLUCAGON FOR INJ 1 MG VIAL SQ PRN (23:13)
[2025-06-23] MEDS ORDERED: MELATONIN 3 MG TAB PO PRN (23:13)
[2025-06-23] MEDS ORDERED: ACETAMINOPHEN 325 MG TAB PO PRN (23:13)
[2025-06-23] MEDS ORDERED: NITROGLYCERIN SL 0.4 MG/TAB TAB SL PRN (23:13)
[2025-06-23 23:26] VITALS: RESP 18
[2025-06-23] MEDS: INSULIN ASPART PER UNIT CHARGE SC SCH (23:30)
[2025-06-23] MEDS: HEPARIN SOD 5,000 UNIT/0.5 ML VIAL SQ SCH (23:38)
[2025-06-23] MEDS: PREGABALIN 75 MG CAP PO SCH (23:38)
--- NOTE | 2025-06-24 08:47 | Cardiology Consultation ---
Date of Consultation June 24, 2025 History of Present Illness Reason for Consultation: NSVT, HF, HTN Requesting Physician: Dr. Nelson Attending Physician: Gi Quintero MD History of Present Illness Pt reports with multiple complaints including Labile blood pressures, Ambulation issues with HOYT, Orthopnea, weight gain, diaphoresis and chills. Allergies Allergy/AdvReac Type Severity Reaction Status Date / Time No Known Allergies Allergy Verified 05/04/24 00:08 Home Medications Medication Instructions Recorded Confirmed Type isosorbide mononitrate 30 mg 30 mg PO QAM #0 tabs 08/12/14 06/23/25 History tablet,extended release 24 hr nitroglycerin 0.4 mg sublingual 0.4 mg sublingual Q5M PRN Chest 08/15/17 06/23/25 History tablet Pain ##0 rosuvastatin 40 mg tablet 40 mg PO QAM 03/30/19 06/23/25 History tamsulosin 0.4 mg capsule 0.8 mg PO DAILY 03/30/19 06/23/25 History clopidogrel 75 mg tablet 75 mg PO DAILY 03/15/21 06/23/25 History montelukast 10 mg tablet 10 mg PO DAILY 03/15/21 06/23/25 History ezetimibe 10 mg tablet 10 mg PO DAILY 07/29/21 06/23/25 History pregabalin 75 mg capsule 75 mg PO QID 05/10/22 06/23/25 History ascorbic acid (vitamin C) 1,000 mg 1 g PO HS 10/18/23 06/23/25 History tablet (Vitamin C) cyanocobalamin (vitamin B-12) 500 mcg PO HS 10/18/23 06/23/25 History 1,000 mcg tablet (Vitamin B-12) finasteride 5 mg tablet (Proscar) 5 mg PO DAILY 10/18/23 06/23/25 History metformin 500 mg tablet,extended 500 mg PO QPM 05/04/24 06/23/25 History release 24 hr metoprolol succinate 25 mg 12.5 mg PO QAM 05/04/24 06/23/25 History tablet,extended release 24 hr furosemide 20 mg tablet 20 mg PO DAILY 06/23/25 06/23/25 History spironolactone 25 mg tablet 12.5 mg PO DAILY 06/23/25 06/23/25 History Patient History Medical History Orthostasis Acute kidney injury superimposed on CKD Acute hypokalemia Elevated troponin Pneumonia Sepsis Presence of combination internal cardiac defibrillator (ICD) and pacemaker 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 CKD (chronic kidney disease), stage III Cardiomyopathy, ischemic CKD (chronic kidney disease) stage 3, GFR 30-59 ml/min Elevated troponin LBBB (left bundle branch block) Atrial fibrillation with rapid ventricular response Stenosis of left internal carotid artery Ischemic cardiomyopathy DVT prophylaxis Paroxysmal A-fib CVA (cerebral vascular accident) GERD (gastroesophageal reflux disease) Diabetes Hypertension Coronary artery disease 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 Diabetes mellitus, type 2 Surgical History History of coronary artery stent placement LAD and RCA 2019 S/P CABG x 2 Family History Mother Stroke Denies family history of Crohn's disease Colorectal cancer Ulcerative colitis Social History Smoking Status: Former smoker Tobacco Type: Cigarettes Smoking End Date: 1988; Second Hand Exposure: No; Do You Dip or Chew Tobacco: No; Hx Alcohol Use: Yes Alcohol type: beer Hx Substance Use: No Preferred Language: [place] Communication Ability: Effective Communication Ability Comment: [phone] 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 Beliefs That Will Affect Care: None marital status: Current Living Situation: Spouse current occupation: Retired Other Information That Helps Us Care for You: No Feels Safe at Home: Yes Safety Concerns: Feels Safe At This Time Assistive Devices: Cane, Hearing Aid - Bilateral, Walker and Wheelchair Assistive Devices Comment: has assistive devices at home but does not use, uses wheelchair only w/ dog Results & Data Vital Signs (Past 12 Hours) Vital Signs Temp Pulse Pulse Resp BP BP Pulse Ox 06/24/25 04:00 36.4 C L 51 L 18 154/83 H 97 06/23/25 23:55 36.4 C L 57 L 18 182/100 H 95 06/23/25 23:13 36.4 C L 57 L 18 182/100 H 95 06/23/25 23:13 06/23/25 23:05 63 06/23/25 22:27 65 27 H 171/110 H 91 06/23/25 21:52 90 06/23/25 21:42 70 15 167/95 H 95 06/23/25 21:27 71 16 173/118 H 96 06/23/25 21:15 76 22 168/118 H 98 Pulse Ox O2 Del Method O2 Del Method 06/24/25 04:00 Room Air 06/23/25 23:55 Room Air 06/23/25 23:13 Room Air 06/23/25 23:13 95 Room Air 06/23/25 23:05 06/23/25 22:27 Room Air 06/23/25 21:52 06/23/25 21:42 06/23/25 21:27 06/23/25 21:15 Laboratory Results Cardiac Enzymes 06/23/25 Range/Units 16:53 AST 38 (13-39) U/L Troponin I High Sens 8.4 (0-20) pg/ml B-Natriuretic Peptide 310 H (0-100) pg/ml Coagulation 06/23/25 Range/Units 16:53 PT 10.6 (9.0-12.0) Seconds APTT 25 (21-31) Seconds B-Natriuretic Peptide 310 H (0-100) pg/ml CBC 06/23/25 Range/Units 16:53 WBC 4.68 L (4.8-10.8) K/ul RBC 4.47 L (4.70-6.10) M/uL Hgb 13.1 L (14.0-18.0) g/dl Hct 39.8 L (42.0-52.0) % Plt Count 133 (130-400) K/uL Neut # (Auto) 2.88 (1.40-6.50) K/uL Lymph # (Auto) 1.22 (1.20-3.40) K/uL Rich # (Auto) 0.47 (0.11-0.59) K/uL Eos # (Auto) 0.07 (0.00-0.50) K/uL Baso # (Auto) 0.03 (0.00-0.20) K/uL Comprehensive Metabolic Panel 06/23/25 Range/Units 16:53 Sodium 140 (136-145) mmol/L Potassium 4.2 (3.5-5.1) mmol/L Chloride 109 H (98-107) mmol/L Carbon Dioxide 24 (21-32) mmol/L BUN 40 H (6-23) mg/dl Creatinine 1.54 H (0.6-1.4) mg/dl Glucose 218 H (70-99(Fasting)) mg/dl Calcium 9.0 (8.6-10.3) mg/dl AST 38 (13-39) U/L ALT 38 (7-52) U/L Alkaline Phosphatase 62 (34-104) U/L Total Protein 6.8 (6.0-8.3) gm/dl Albumin 4.1 (3.4-5.0) gm/dl Intake and Output 06/23/25 06/24/25 06/24/25 22:59 06:59 14:59 Output Total 1550 / 1550 Balance -1550 / -1550 Output: Urine 1550 / 1550 Other: Weight 126 kg 122.4 kg Weight Measurement Method Built in Bedscale Standing Scale Diagnostic Findings Carotid US IMPRESSION: Velocity measurements and velocity ratios are consistent with. 50-69% stenosis of the proximal left internal carotid artery and less than 50% stenosis of the right. Head CT MPRESSION: 1. Area of encephalomalacia/edema peripherally in the right cerebellar hemisphere consistent most often with an area of ischemic infarction of uncertain chronicity. The time course of this could be better evaluated with MRI study if indicated. 2. No evidence of mass or hemorrhage. 3. Mild chronic atrophy and lucency in the deep white matter most compatible with chronic ischemic angiopathy. Electronically signed by Mukul Dawkins 06-23-2025 6:16 PM Chest X-ray IMPRESSION: 1. Moderate cardiomegaly with mild pulmonary venous hypertension, status post CABG and pacemaker placement. 2. Otherwise negative for acute disease Medications Administered Current Inpatient Medications Acetaminophen (Acetaminophen 325 Mg Tab) 650 mg PO Q4H PRN PRN Reason: Pain or Fever Stop: 07/23/25 23:12 Clopidogrel Bisulfate (Clopidogrel Bisulfate 75 Mg Tab) 75 mg PO DAILY GITA Stop: 07/24/25 08:59 Dextrose (Dextrose 50% 50 Ml Syringe) 25 - 50 ml IV UD PRN; Protocol PRN Reason: Hypoglycemia Protocol Stop: 07/23/25 23:12 Ezetimibe (Ezetimibe 10 Mg Tab) 10 mg PO DAILY GITA Stop: 07/24/25 08:59 Empagliflozin (Empagliflozin 25 Mg Tab) 25 mg PO DAILY GITA Stop: 07/24/25 08:59 Finasteride (Finasteride 5 Mg Tab) 5 mg PO DAILY GITA Stop: 07/24/25 08:59 Glucagon (Glucagon For Inj 1 Mg Vial) 1 mg SQ UD PRN; Protocol PRN Reason: Hypoglycemia Protocol Stop: 07/23/25 23:12 Glucose (Glucose 40% Gel 15 Gm Tube) 15 - 30 gm PO UD PRN; Protocol PRN Reason: Hypoglycemia Protocol Stop: 07/23/25 23:12 Glucose (Glucose 10 Tab/Tube) 4 - 8 tab PO UD PRN; Protocol PRN Reason: Hypoglycemia Protocol Stop: 07/23/25 23:12 Heparin Sodium (Porcine) (Heparin Sod 5,000 Unit/0.5 Ml Vial) 5,000 units SQ Q8 GITA Stop: 07/23/25 23:12 Last Admin: 06/24/25 05:32 Dose: 5,000 units Insulin Aspart (Insulin Aspart Per Unit Charge) 0 units SC ACHS GITA Stop: 07/23/25 23:12 Last Admin: 06/23/25 23:30 Dose: Not Given Isosorbide Mononitrate (Isosorbide Rich Extended Rel 30 Mg Tabcr) 30 mg PO QAM [facility] Stop: 07/24/25 08:59 Melatonin (Melatonin 3 Mg Tab) 3 mg PO HS PRN PRN Reason: Sleep Stop: 07/23/25 23:12 Metoprolol Succinate (Metoprolol Succ 25mg Ext Rel Tab) 25 mg PO QAM [facility] Stop: 07/24/25 08:59 Miscellaneous (Carbohydrates For Hypoglycemia ) 15 - 30 gm PO UD PRN PRN Reason: Hypoglycemia Protocol Stop: 07/23/25 23:12 Montelukast Sodium (Montelukast Sodium 10 Mg Tablet) 10 mg PO DAILY [facility] Stop: 07/24/25 08:59 Nitroglycerin (Nitroglycerin Sl 0.4 Mg/Tab Tab) 0.4 mg SL Q5M PRN PRN Reason: Chest Pain Stop: 07/23/25 23:12 Ondansetron HCl (Ondansetron Inj 2 Mg/Ml 2 Ml Vial) 4 mg IV Q6H PRN PRN Reason: Nausea Stop: 07/23/25 23:12 Polyethylene Glycol (Polyethylene (Miralax) 17 Gm Pack) 17 gm PO DAILY PRN PRN Reason: Constipation Stop: 07/23/25 23:12 Pregabalin (Pregabalin 75 Mg Cap) 75 mg PO QID [facility] Stop: 07/23/25 23:12 Last Admin: 06/23/25 23:38 Dose: 75 mg Rosuvastatin Calcium (Rosuvastatin Calcium 20 Mg Tab) 40 mg PO QAM [facility] Stop: 07/24/25 08:59 Spironolactone (Spironolactone 12.5 Mg Tab) 12.5 mg PO DAILY GITA Stop: 07/24/25 08:59 Tamsulosin HCl (Tamsulosin Hcl 0.4 Mg Cap) 0.8 mg PO DAILY GITA Stop: 07/24/25 08:59 PG Care Time/CCT Total # of Minutes Spent Total Time Spent with Patient: Total time spent is greater than 50% in coordination of care (as documented) at patient's floor/unit and/or counseling patient: Coding Level of Care Code 25768 IN/OBS CONSULT LVL 5,80M
[2025-06-24] MEDS: ISOSORBIDE MONO EXTENDED REL 30 MG TABCR PO SCH (08:55)
[2025-06-24] MEDS: ROSUVASTATIN CALCIUM 20 MG TAB PO SCH (08:55)
[2025-06-24] MEDS: MONTELUKAST SODIUM 10 MG TABLET PO SCH (08:55)
[2025-06-24] MEDS: EMPAGLIFLOZIN 25 MG TAB PO SCH (08:55)
[2025-06-24] MEDS: EZETIMIBE 10 MG TAB PO SCH (08:55)
[2025-06-24] MEDS: FINASTERIDE 5 MG TAB PO SCH (08:55)
[2025-06-24] MEDS: CLOPIDOGREL BISULFATE 75 MG TAB PO SCH (08:55)
[2025-06-24] MEDS: TAMSULOSIN HCL 0.4 MG CAP PO SCH (08:55)
[2025-06-24] MEDS: METOPROLOL SUCC 25MG EXT REL TAB PO SCH (08:55)
[2025-06-24] MEDS: SPIRONOLACTONE 12.5 MG TAB PO SCH (08:55)
[2025-06-24 09:35] LABS: Anion Gap 9.0 (3-11); Calcium 9.6 mg/dl (8.6-10.3); Carbon Dioxide 28.0 mmol/L (21-32); Chloride 105.0 mmol/L (98-107); Magnesium 2.2 mg/dl (1.7-2.4); Potassium 4.1 mmol/L (3.5-5.1); Sodium 142.0 mmol/L (136-145)
[2025-06-24 09:37] LABS: Hemoglobin A1C 6.7 % (4.5-5.6)
[2025-06-24 09:39] LABS: Hematocrit (blood only) 42.7 % (42.0-52.0); Hemoglobin 14.4 g/dl (14.0-18.0); Mean Corpuscular Hemoglobin 29.4 pg (25.0-34.0); Mean Corpuscular Volume 87.1 fL (80.0-100.0); Platelet Count 129 K/uL (130-400); RDW Standard Deviation 47.0 fL (36.4-46.3); Red Blood Count 4.90 M/uL (4.70-6.10); White Blood Count 5.94 K/ul (4.8-10.8)
[2025-06-24 09:41] LABS: Blood Urea Nitrogen 40.0 mg/dl (6-23); Cholesterol 134.0 mg/dl (0-200); Creatinine Clr Calc Pharmacy 59.3 ml/min; Glucose 108.0 mg/dl (70-99(Fasting)); HDL Cholesterol 48.0 mg/dl; Iron 99.0 mcg/dl (35-175); Total Iron Binding Cap Calc 399.0 mcg/dl (250-450); Transferrin 285.0 mg/dl (200-360); Transferrin (FE) Percent Satur 25.0 % (20-50); Triglycerides 145.0 mg/dl (0-150)
--- NOTE | 2025-06-24 10:00 | Hospitalist Progress Note ---
Date of Service June 24, 2025 Assessment & Plan (1) Acute on chronic heart failure with reduced ejection fraction (HFrEF, <= 40%): (2) Presence of combination internal cardiac defibrillator (ICD) and pacemaker: (3) LBBB (left bundle branch block): Plan 79 year old gentleman with past medical history notable for HLD, Type 2 DM, Diabetic neuropathy, Diaphragmatic hernia, Asymptomatic carotid artery stenosis, HTN, CKD 3a, Chronic heart failure(HFrecEF), CAD, ischemic cardiomyopathy, PAF, PVD, AICD, iron deficiency anemia presented to [facility] ED due to progressive weakness, liable blood pressures, orthopnea and weight gain #Acute on chronic heart failure with reduced EF s/p AICD 2020 #Coronary artery disease S/P CABG x2 with a FOLEY to the LAD and vein graft to the OM with follow-up STEMI and collapse of the vein graft, PCI to the LAD and RCA March 2019 revealing a patent FOLEY #Nonsustained ventricular tachycardia #Chronic LBBB #Ischemic cardiomyopathy, HFrecEF 40% 2023 Dry weight:[address], on admisison weight was 276lbs Home diuretics: Lasix 20mg daily and spironolactone Continue metoprolol succinate , increased to 25 mg daily Continue spironolactone and imdur Was started on jardiance this admission Troponin negative, BNP elevated 310 TTE showed mildly dil LV, LV wall thickness mildly increased in non infarct segments, apical WMA may reflect pacemaker activation, large inferiopost WMA with scar, EF 30-35%, Grade II DD, mild to mod MR, trace TR Awaiting Cardiology eval #Ambulatory Dysfunction, shuffling gait #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 Neuro suspects patient had a stroke in the last month. Goal BP is normotension Get PT/OT eval Continue Crestor, Zetia Get CTA head/Neck per Neuro to assess vessel status for any changes Outpatient neuro follow uin 4-6 weeks #Paroxysmal atrial fibrillation, S/P PABLO/DCCV 03/16/2021 Continue metoprolol Cardiology outpatient eval from 05/2024 noted patient was on eliquis. confirmed he was on eliquis but it was stopped within the past year. She could not remember when or why Awaiting Cards eval for recs regarding resuming eliquis. Neuro recommends eliquis + plavix but defers to Cardiology # Diabetes type 2 Hb A1C 6.7% 02/2025 Started jardiance. 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 #Peripheral arterial disease with failed PTCA 04/2016 Brain MRA Occluded or nearly occluded bilateral MCA's Occluded or nearly occluded R posterior cerebral artery Prior Carotid studies: Asymptomatic LICA 50-69% stenosis, Asymptomatic < 50% ALISSA stenosis Followed Vascular last in 2021 Continue plavix and statin Plan to resestablish OP v consult vascular contingent on above results #Chronic normocytic anemia #EDGAR Historically followed Heme/Onc for venofer infusions Hb is stable DVT ppx heparin sq Full code PCP Dr Arabella Jung spent a total of 60 minutes coordinating, documenting and providing care for this patient excluding time spent in performance of separately billed services Admission and Anticipated Discharge Date Admission Date: June 23, 2025 Subjective Patient seen and examined at bedside reports he has been getting ill over time with increased weight, orthopnea (He gets SOB when he lays down, now sleeps in a recliner), tight fitting clothes, progressive weakness also reports increased forgetfulness, occasional dizziness, labile BP and ambulatory dysfunction Patient denied chest pain, fever, chills, nausea, vomiting, diarrhea, abd pain Physical Exam Constitutional: + well hydrated; no acute distress Eyes: PERRL, conjunctivae normal, anicteric sclerae ENMT: external ear and nose normal, oropharynx normal Respiratory: normal respiratory effort, lungs clear to auscultation Cardiovascular: Rate/Rhythm: regular rate and regular rhythm Gastrointestinal (Abdomen): normal bowel sounds, soft, nontender, no hepatosplenomegaly Musculoskeletal: No pedal edema Neurologic: PERRL, EOMI, accommodation nl, no face palsy, no dysarthria Results & Data Results & Data Vital Signs (Past 12 Hours) Vital Signs Temp Pulse Pulse Resp BP BP BP 06/24/25 09:09 36.9 C 56 L 18 167/92 H 06/24/25 04:00 36.4 C L 51 L 18 154/83 H 06/23/25 23:55 36.4 C L 57 L 18 182/100 H 06/23/25 23:13 36.4 C L 57 L 18 182/100 H 06/23/25 23:13 06/23/25 23:05 63 06/23/25 22:27 65 27 H 171/110 H Pulse Ox Pulse Ox O2 Del Method O2 Del Method 06/24/25 09:09 95 Room Air 06/24/25 04:00 97 Room Air 06/23/25 23:55 95 Room Air 06/23/25 23:13 95 Room Air 06/23/25 23:13 95 Room Air 06/23/25 23:05 06/23/25 22:27 91 Room Air Laboratory Results Abnormal lab results 06/23/25 06/23/25 06/23/25 Range/Units 16:53 21:16 23:19 WBC 4.68 L (4.8-10.8) K/ul RBC 4.47 L (4.70-6.10) M/uL Hgb 13.1 L (14.0-18.0) g/dl Hct 39.8 L (42.0-52.0) % RDW Std Deviation 48.3 H (36.4-46.3) fL RDW Coeff of Leela 15.1 H (11.5-14.5) % Plt Count (130-400) K/uL Chloride 109 H (98-107) mmol/L BUN 40 H (6-23) mg/dl Creatinine 1.54 H (0.6-1.4) mg/dl BUN/Creatinine Ratio 26.0 H (10-20) Glucose 218 H (70-99(Fasting)) mg/dl POC Glucose 104 H (70-99) mg/dl Hemoglobin A1c (4.5-5.6) % B-Natriuretic Peptide 310 H (0-100) pg/ml Protein/Creatinin Ratio 0.3 H (0-0.2) 06/24/25 06/24/25 Range/Units 07:54 08:47 WBC (4.8-10.8) K/ul RBC (4.70-6.10) M/uL Hgb (14.0-18.0) g/dl Hct (42.0-52.0) % RDW Std Deviation 47.0 H (36.4-46.3) fL RDW Coeff of Leela 14.8 H (11.5-14.5) % Plt Count 129 L (130-400) K/uL Chloride (98-107) mmol/L BUN 40 H (6-23) mg/dl Creatinine 1.47 H (0.6-1.4) mg/dl BUN/Creatinine Ratio 27.2 H (10-20) Glucose 108 H (70-99(Fasting)) mg/dl POC Glucose 111 H (70-99) mg/dl Hemoglobin A1c 6.7 H (4.5-5.6) % B-Natriuretic Peptide (0-100) pg/ml Protein/Creatinin Ratio (0-0.2)
[2025-06-24 11:34] LABS: Thyroid Stimulating Hormone 3.901 uIu/ml (0.300-4.500)
[2025-06-24 11:38] LABS: Ferritin 59.9 ng/ml (8-388)
--- NOTE | 2025-06-24 11:50 | Neurology Consultation ---
Date of Consultation June 24, 2025 Assessment & Plan (1) Vascular dementia: Tulio Becerra is a 79 yo M presenting with decline over the past month. Suspect this may be related to stroke and his diagnosis of vascular dementia. Reasonable to obtain updated vessel studies with a CTA head and neck - carotid ultrasound is insufficient and prone to artifacts when a patient has known intracranial occlusions and is therefore not the best study in this context. Management is still aggressive control of his vascular risk factors and the only gap at this point is blood pressure control - he should be normotensive and anticoagulation for his afib. Ideally he should be on eliquis+plavix for his risk factors and va sculopathy. 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 -- Address AC for afib with cardiology, recommend eliquis+plavix -- CTA head and neck to assess vessel status for any changes -- Suspect this was stroke in the last month, would benefit from rehab/therapy evals -- Continue crestor 40mg daily -- Goal BP is normotension -- No other treatment for vascular dementia beyond controlling risk factors as above -- Outpatient neurology follow-up in 4-6 weeks Telehealth Consultation Telehealth Information Telehealth Information: I performed this visit using a real-time telehealth connection between my location and the patients location ([facility]). After connecting through interactive tele-video, patient was identified by name and date of and/or wristband check.Patient (or authorized healthcare cash application representative) was informed that this was a telemedicine visit and it was being conducted confidentially over secure lines. My office door was closed and no one else was present in the room with me.Patient (or authorized healthcare cash application representative) provided consent to proceed with the visit, expressed an understanding of privacy and security of the telemedicine visit, and gave permission to have a hospital cash application representative in the room in order to assist with the visit and to conduct portions of the visit, as needed. I informed the patient (or authorized healthcare cash application representative) that I reviewed their record and presented the opportunity for them to ask any questions regarding the visit today. The patient agreed to participate. History of Present Illness Reason for Consultation: vascular dementia Requesting Physician: Dr. Quintero Attending Physician: Gi Quintero MD History of Present Illness Tulio Becerra is a 79 yo M presenting with functional decline over the past month, shuffling gait, new R facial droop and worsening memory. 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 His AICD is not MRI compatible, last MRI from 2021 with significant vascular changes. Patient also has a history of afib but is not on anticoagulation. He has been taking his plavix and crestor otherwise. The patient reports he overall feels well and attributes his gait changes to his knee replacements. Allergies Allergy/AdvReac Type Severity Reaction Status Date / Time No Known Allergies Allergy Verified 05/04/24 00:08 Home Medications Medication Instructions Recorded Confirmed Type isosorbide mononitrate 30 mg 30 mg PO QAM #0 tabs 08/12/14 06/23/25 History tablet,extended release 24 hr nitroglycerin 0.4 mg sublingual 0.4 mg sublingual Q5M PRN Chest 08/15/17 06/23/25 History tablet Pain ##0 rosuvastatin 40 mg tablet 40 mg PO QAM 03/30/19 06/23/25 History tamsulosin 0.4 mg capsule 0.8 mg PO DAILY 03/30/19 06/23/25 History clopidogrel 75 mg tablet 75 mg PO DAILY 03/15/21 06/23/25 History montelukast 10 mg tablet 10 mg PO DAILY 03/15/21 06/23/25 History ezetimibe 10 mg tablet 10 mg PO DAILY 07/29/21 06/23/25 History pregabalin 75 mg capsule 75 mg PO QID 05/10/22 06/23/25 History ascorbic acid (vitamin C) 1,000 mg 1 g PO HS 10/18/23 06/23/25 History tablet (Vitamin C) cyanocobalamin (vitamin B-12) 500 mcg PO HS 10/18/23 06/23/25 History 1,000 mcg tablet (Vitamin B-12) finasteride 5 mg tablet (Proscar) 5 mg PO DAILY 10/18/23 06/23/25 History metformin 500 mg tablet,extended 500 mg PO QPM 05/04/24 06/23/25 History release 24 hr metoprolol succinate 25 mg 12.5 mg PO QAM 05/04/24 06/23/25 History tablet,extended release 24 hr furosemide 20 mg tablet 20 mg PO DAILY 06/23/25 06/23/25 History spironolactone 25 mg tablet 12.5 mg PO DAILY 06/23/25 06/23/25 History Patient History Medical History Orthostasis Acute kidney injury superimposed on CKD Acute hypokalemia Elevated troponin Pneumonia Sepsis Presence of combination internal cardiac defibrillator (ICD) and pacemaker 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 CKD (chronic kidney disease), stage III Cardiomyopathy, ischemic CKD (chronic kidney disease) stage 3, GFR 30-59 ml/min Elevated troponin LBBB (left bundle branch block) Atrial fibrillation with rapid ventricular response Stenosis of left internal carotid artery Ischemic cardiomyopathy DVT prophylaxis Paroxysmal A-fib CVA (cerebral vascular accident) GERD (gastroesophageal reflux disease) Diabetes Hypertension Coronary artery disease 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 Diabetes mellitus, type 2 Surgical History History of coronary artery stent placement LAD and RCA 2019 S/P CABG x 2 Family History Mother Stroke Denies family history of Crohn's disease Colorectal cancer Ulcerative colitis Social History Smoking Status: Former smoker Tobacco Type: Cigarettes Smoking End Date: 1988; Second Hand Exposure: No; Do You Dip or Chew Tobacco: No; Hx Alcohol Use: Yes Alcohol type: beer Hx Substance Use: No Preferred Language: Czech Communication Ability: Effective Communication Ability Comment: [phone] Fabric Normalizer Required: No Beliefs That Will Affect Care: None marital status: Current Living Situation: Spouse current occupation: Retired Other Information That Helps Us Care for You: No Feels Safe at Home: Yes Safety Concerns: Feels Safe At This Time Assistive Devices: Cane, Hearing Aid - Bilateral, Walker and Wheelchair Assistive Devices Comment: has assistive devices at home but does not use, uses wheelchair only w/ dog Review of Systems +forgetfulness, shuffling gait Physical Exam Awake and alert, fluent, no aphasia, noted R facial droop. No pronator drift, antigravity strength throughout. No ataxia in the upper or lower extremities. Results & Data Vital Signs (Past 12 Hours) Vital Signs Temp Pulse Resp BP BP Pulse Ox O2 Del Method 06/24/25 09:09 36.9 C 56 L 18 167/92 H 95 Room Air 06/24/25 04:00 36.4 C L 51 L 18 154/83 H 97 Room Air 06/23/25 23:55 36.4 C L 57 L 18 182/100 H 95 Room Air Laboratory Results Abnormal lab results 06/23/25 06/23/25 06/23/25 Range/Units 16:53 21:16 23:19 WBC 4.68 L (4.8-10.8) K/ul RBC 4.47 L (4.70-6.10) M/uL Hgb 13.1 L (14.0-18.0) g/dl Hct 39.8 L (42.0-52.0) % RDW Std Deviation 48.3 H (36.4-46.3) fL RDW Coeff of Leela 15.1 H (11.5-14.5) % Plt Count (130-400) K/uL Chloride 109 H (98-107) mmol/L BUN 40 H (6-23) mg/dl Creatinine 1.54 H (0.6-1.4) mg/dl BUN/Creatinine Ratio 26.0 H (10-20) Glucose 218 H (70-99(Fasting)) mg/dl POC Glucose 104 H (70-99) mg/dl Hemoglobin A1c (4.5-5.6) % B-Natriuretic Peptide 310 H (0-100) pg/ml Protein/Creatinin Ratio 0.3 H (0-0.2) 06/24/25 06/24/25 Range/Units 07:54 08:47 WBC (4.8-10.8) K/ul RBC (4.70-6.10) M/uL Hgb (14.0-18.0) g/dl Hct (42.0-52.0) % RDW Std Deviation 47.0 H (36.4-46.3) fL RDW Coeff of Leela 14.8 H (11.5-14.5) % Plt Count 129 L (130-400) K/uL Chloride (98-107) mmol/L BUN 40 H (6-23) mg/dl Creatinine 1.47 H (0.6-1.4) mg/dl BUN/Creatinine Ratio 27.2 H (10-20) Glucose 108 H (70-99(Fasting)) mg/dl POC Glucose 111 H (70-99) mg/dl Hemoglobin A1c 6.7 H (4.5-5.6) % B-Natriuretic Peptide (0-100) pg/ml Protein/Creatinin Ratio (0-0.2) Diagnostic Findings Chest X-Ray 06/23/25 16:44 Exam: X-ray chest 1 view not provided Reason for exam: Chest pain Previous studies: None FINDINGS: Wire sternal sutures and clips are seen. Left-sided pacemaker/defibrillator is present. The heart is moderately enlarged with mild pulmonary venous hypertension but no barbie edema or acute lung infiltrate identified. No pleural effusion or pneumothorax is noted. IMPRESSION: 1. Moderate cardiomegaly with mild pulmonary venous hypertension, status post CABG and pacemaker placement. 2. Otherwise negative for acute disease. Electronically signed by Mukul Dawkins 06-23-2025 6:[address] 06/23/25 17:13 Exam: CTA head/brain without contrast. Reason for exam: Ambulatory dysfunction, ataxia. Previous studies: None FINDINGS: No intracranial mass, hemorrhage or edema is seen. There is a 2.6 cm focal area of decreased attenuation in the periphery of the right posterior cerebellar hemisphere consistent most likely within infarct of uncertain age. No mass effect or hemorrhage is seen. No extra-axial fluid collection is seen. Some diffuse atrophy and lucency seen in the deep white matter. No midline shift is seen. Extensive calcific atherosclerotic vascular changes seen in the visualized arterial vessels. Normal position and the visualized sinuses and mastoids maintained bilaterally. No acute process of the bony calvarium is seen. IMPRESSION: 1. Area of encephalomalacia/edema peripherally in the right cerebellar hemisphere consistent most often with an area of ischemic infarction of uncertain chronicity. The time course of this could be better evaluated with MRI study if indicated. 2. No evidence of mass or hemorrhage. 3. Mild chronic atrophy and lucency in the deep white matter most compatible with chronic ischemic angiopathy. Electronically signed by Mukul Dawkins 06-23-2025 6:16 PM Carotid Doppler Study 06/23/25 19:33 Exam(s): US CAROTID EXAM: US Duplex Bilateral Extracranial Arteries CLINICAL HISTORY: Reason for exam: weakness/dizziness. TECHNIQUE: Real-time duplex ultrasound scan of the extracranial arteries integrating B-mode two-dimensional vascular structure, Doppler spectral analysis and color flow Doppler imaging. COMPARISON: No relevant prior studies available. FINDINGS: Right common carotid artery: Right common carotid artery 72 cm/sec. No occlusion or significant stenosis on color flow and spectral Doppler imaging. Right internal carotid artery: Right internal carotid artery 98 cm/sec. No occlusion or significant stenosis on color flow and spectral Doppler imaging. Right external carotid artery: Right external carotid artery 100 cm/sec. No occlusion or significant stenosis on color flow and spectral Doppler imaging. Right vertebral artery: Right vertebral artery 43 cm/sec. Right ICA/CCA ratio: Right ICA/CCA ratio 1.4. Left common carotid artery: Left common carotid artery 75 cm/sec. No occlusion or significant stenosis on color flow and spectral Doppler imaging. Left internal carotid artery: Left internal carotid artery 108 cm/sec. [id number] atherosclerotic plaque in the left carotid bifurcation. No occlusion or significant stenosis on color flow and spectral Doppler imaging. Left external carotid artery: Left external carotid artery 142 cm/sec. No occlusion or significant stenosis on color flow and spectral Doppler imaging. Left vertebral artery: Left vertebral artery 66 cm/sec. Left ICA/CCA ratio: Left ICA/CCA ratio 2.8. Lymph nodes: Unremarkable. No lymphadenopathy. CAROTID STENOSIS REFERENCE USING IAC CRITERIA: Mild - <50% stenosis. ICA PSV is less than 180 cm/s and plaque or intimal thickening is visible. Moderate - 50-69% stenosis. ICA PSV is 180 to 230 cm/s and plaque is visible. Severe - 70-94% stenosis. ICA PSV is more than 230 cm/s and visible plaque with lumen narrowing is seen. Near occlusion - 95-99% stenosis. ICA PSV is variable and significant plaque with luminal narrowing is seen. Occluded - 100% stenosis. No flow identified. IMPRESSION: Velocity measurements and velocity ratios are consistent with. 50-69% stenosis of the proximal left internal carotid artery and less than 50% stenosis of the right. Electronically signed by: John Palumbo MD 06/23/25 22:46 PM
--- NOTE | 2025-06-24 12:45 | CT Scan Report ---
CT angio head w con CLINICAL HISTORY: To better assess vasculopathy/stenosis. TECHNIQUE: Unenhanced axial CT scan of the brain is performed. Subsequently, following the IV adminis tration of 120 cc of Optiray, CT angiogram of the brain was performed from the skull base to the vert ex. Images are reviewed in the axial, sagittal, and coronal planes. 3-D MIPS images are created and a ssessed. IV contrast was administered without complication. All measurements were obtained according to NASCET criteria. A dose lowering technique was utilized adhering to the principles of ALARA. CT DOSE: 612 COMPARISON STUDY: Head CT yesterday and MRI of 05/11/2022 and CTA of 04/02/2019 FINDINGS: There is calcification distally at the internal carotid arteries bilaterally with mild dist al narrowing. There is calcification at the distal vertebral arteries bilaterally without occlusion. Left vertebral artery is dominant and the distal right vertebral artery is diminutive, anatomic varia nt. There is a small atherosclerotic calcification proximally at the basilar artery causing mild narr owing, stable. Otherwise the basilar artery is widely patent. There is stable atresia of the proximal middle cerebral arteries bilaterally with no significant flow seen in the M1 branches bilaterally, s table. There is reconstitution of diminutive distal middle cerebral artery branches bilaterally, stab le. Anterior and posterior cerebral arteries are patent bilaterally and the right INSURANCE AGENCY MANAGER is diminutive, stable. Cerebral venous sinuses opacify normally. IMPRESSION: Stable CTA of the brain with no significant flow is seen in the proximal middle cerebral arteries bilaterally. Otherwise as described. ACT 112: Negative or not required by law. The above report was generated using voice recognition software. It may contain grammatical, syntax o r spelling errors. Electronically signed by: Mukul Ochoa M.D. 06/24/2025 12:44 PM
--- NOTE | 2025-06-24 12:55 | CT Scan Report ---
CT ANGIOGRAPHY OF THE NECK WITH CONTRAST CLINICAL HISTORY: To better assess vasculopathy/stenosis. COMPARISON STUDY: Carotid ultrasound June 23, 2025. Technique: CT angiography of the carotid and vertebral arteries was obtained using Optiray and 3D rec onstruction on an independent workstation. NASCET criteria was utilized. Automated exposure control was utilized for the study. A dose lowering technique was utilized adhering to the principles of ALA RA. CT DOSE: 611.86 mGy.cm Findings: Visualized lung apices are unremarkable. Left subclavian pacer leads are partially imaged. Postoperative findings consistent with C5-C6 anterior and posterior fusions are noted. There are no a cute cervical spine fractures. There is no cervical lymphadenopathy. Extensive atherosclerotic plaque within the proximal left internal carotid artery is noted. This results in severe short segment narr owing (90%) of the left internal carotid artery 1.2 cm distal to vessel origin. There is 40% stenosis of the proximal right internal carotid artery due to moderate calcified plaque. Note is made of mode rate to severe stenosis of the intracranial portion of the left vertebral artery and moderate stenosi s of the intracranial portion of the right vertebral artery. Please note that the CTA of the head merle l be reported separately. IMPRESSION: 1. Short segment severe (90%) stenosis of the proximal left internal carotid artery due to extensive plaque. 2. 40% stenosis of the proximal right internal carotid artery. 3. Moderate to severe stenosis of the intracranial left vertebral artery and moderate stenosis of the intracranial right vertebral artery. ACT 112: Negative or not required by law. Electronically signed by: Dexter Ibarra M.D. 06/24/2025 12:53 PM
--- NOTE | 2025-06-24 12:56 | Neurology Consultation ---
Date of Consultation June 24, 2025 Assessment & Plan (1) Vascular dementia: Tulio Becerra is a 79 yo M presenting with decline over the past month. Suspect this may be related to stroke and his diagnosis of vascular dementia. Reasonable to obtain updated vessel studies with a CTA head and neck - carotid ultrasound is insufficient and prone to artifacts when a patient has known intracranial occlusions and is therefore not the best study in this context. Management is still aggressive control of his vascular risk factors and the only gap at this point is blood pressure control - he should be normotensive and anticoagulation for his afib. Ideally he should be on eliquis+plavix for his risk factors and va sculopathy. 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 -- Address AC for afib with cardiology, recommend eliquis+plavix -- CTA head and neck to assess vessel status for any changes -- Suspect this was stroke in the last month, would benefit from rehab/therapy evals -- Continue crestor 40mg daily -- Goal BP is normotension -- No other treatment for vascular dementia beyond controlling risk factors as above -- Outpatient neurology follow-up in 4-6 weeks Telehealth Consultation Telehealth Information Telehealth Information: I performed this visit using a real-time telehealth connection between my location and the patients location ([facility]). After connecting through interactive tele-video, patient was identified by name and date of and/or wristband check.Patient (or authorized healthcare counter sales representative) was informed that this was a telemedicine visit and it was being conducted confidentially over secure lines. My office door was closed and no one else was present in the room with me.Patient (or authorized healthcare counter sales representative) provided consent to proceed with the visit, expressed an understanding of privacy and security of the telemedicine visit, and gave permission to have a hospital counter sales representative in the room in order to assist with the visit and to conduct portions of the visit, as needed. I informed the patient (or authorized healthcare counter sales representative) that I reviewed their record and presented the opportunity for them to ask any questions regarding the visit today. The patient agreed to participate. History of Present Illness Attending Physician: Gi Quintero MD Allergies Allergy/AdvReac Type Severity Reaction Status Date / Time No Known Allergies Allergy Verified 05/04/24 00:08 Home Medications Medication Instructions Recorded Confirmed Type isosorbide mononitrate 30 mg 30 mg PO QAM #0 tabs 08/12/14 06/23/25 History tablet,extended release 24 hr nitroglycerin 0.4 mg sublingual 0.4 mg sublingual Q5M PRN Chest 08/15/17 06/23/25 History tablet Pain ##0 rosuvastatin 40 mg tablet 40 mg PO QAM 03/30/19 06/23/25 History tamsulosin 0.4 mg capsule 0.8 mg PO DAILY 03/30/19 06/23/25 History clopidogrel 75 mg tablet 75 mg PO DAILY 03/15/21 06/23/25 History montelukast 10 mg tablet 10 mg PO DAILY 03/15/21 06/23/25 History ezetimibe 10 mg tablet 10 mg PO DAILY 07/29/21 06/23/25 History pregabalin 75 mg capsule 75 mg PO QID 05/10/22 06/23/25 History ascorbic acid (vitamin C) 1,000 mg 1 g PO HS 10/18/23 06/23/25 History tablet (Vitamin C) cyanocobalamin (vitamin B-12) 500 mcg PO HS 10/18/23 06/23/25 History 1,000 mcg tablet (Vitamin B-12) finasteride 5 mg tablet (Proscar) 5 mg PO DAILY 10/18/23 06/23/25 History metformin 500 mg tablet,extended 500 mg PO QPM 05/04/24 06/23/25 History release 24 hr metoprolol succinate 25 mg 12.5 mg PO QAM 05/04/24 06/23/25 History tablet,extended release 24 hr furosemide 20 mg tablet 20 mg PO DAILY 06/23/25 06/23/25 History spironolactone 25 mg tablet 12.5 mg PO DAILY 06/23/25 06/23/25 History Patient History Medical History Orthostasis Acute kidney injury superimposed on CKD Acute hypokalemia Elevated troponin Pneumonia Sepsis Presence of combination internal cardiac defibrillator (ICD) and pacemaker 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 CKD (chronic kidney disease), stage III Cardiomyopathy, ischemic CKD (chronic kidney disease) stage 3, GFR 30-59 ml/min Elevated troponin LBBB (left bundle branch block) Atrial fibrillation with rapid ventricular response Stenosis of left internal carotid artery Ischemic cardiomyopathy DVT prophylaxis Paroxysmal A-fib CVA (cerebral vascular accident) GERD (gastroesophageal reflux disease) Diabetes Hypertension Coronary artery disease 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 Diabetes mellitus, type 2 Surgical History History of coronary artery stent placement LAD and RCA 2019 S/P CABG x 2 Family History Mother Stroke Denies family history of Crohn's disease Colorectal cancer Ulcerative colitis Social History Smoking Status: Former smoker Tobacco Type: Cigarettes Smoking End Date: 1988; Second Hand Exposure: No; Do You Dip or Chew Tobacco: No; Hx Alcohol Use: Yes Alcohol type: beer Hx Substance Use: No Preferred Language: Bhutanese Communication Ability: Effective Communication Ability Comment: [phone] E Business Project Manager Required: No Beliefs That Will Affect Care: None marital status: Current Living Situation: Spouse current occupation: Retired Other Information That Helps Us Care for You: No Feels Safe at Home: Yes Safety Concerns: Feels Safe At This Time Assistive Devices: Cane, Hearing Aid - Bilateral, Walker and Wheelchair Assistive Devices Comment: has assistive devices at home but does not use, uses wheelchair only w/ dog Physical Exam Awake and alert, fluent, no aphasia, noted R facial droop. No pronator drift, antigravity strength throughout. No ataxia in the upper or lower extremities. Results & Data Vital Signs (Past 12 Hours) Vital Signs Temp Pulse Resp BP BP Pulse Ox O2 Del Method 06/24/25 11:44 36.5 C 54 L 18 132/79 95 Room Air 06/24/25 09:09 36.9 C 56 L 18 167/92 H 95 Room Air 06/24/25 04:00 36.4 C L 51 L 18 154/83 H 97 Room Air
--- NOTE | 2025-06-24 13:42 | Cardiology Consultation ---
Date of Consultation June 24, 2025 Supervising Physician Co-Signing Physician Notes Attending Staff: Patient seen and examined with AP Staff Concur with observations and plan I take responsibility for the Cardiac Care delivered by our Team 79 yo man presenting with labile blood pressures, NSVT and weight gain Med Hx: * Dementia (Vascular) * Cerebrovascular Disease * CVA * CAD * CABG x2 (FOLEY to LAD, SVG to OM) * PCI to LAD * PCI to RCA * Hypertension * Hyperlipidemia * Diabetes * Ischemic Cardiomyopathy * LVEF 40% * PAF * ICD * CKD Stage III Plans: * SBP moving closer towards goal of 120 mmHg * Troponin - WNL - no evidence of ACS * Cardiomyopathy - LVEF 40% * Start Entresto 24/26 mg po BID; uptitrate to secure BP control * Increase Aldactone 25 mg po per day * Continue Jardiance 25 mg po per day * S/P PCI - continue Plavix * Continue Crestor 40 mg po per day * Continue Zetia 10 mg po per day * LDL 57 (Target LDL <55) * May consider repatha as an outpt * K+ goal 4.5-5 * Mag goal >2 * Check TSH * Consider increasing Toprol XL to 50 mg po per day to address NSVT * + Afib * CHADsVasc 8 -consider DOAC - Apixiban 5 mg po BID * ICD - interrogation as an outpt * Patient has a BiV pacer - is pacing 90+ % of time * Patient appears euvolemic * Please call back with any additional questions * 60 min spent addressing challenges, educating and advancing daily plan of care Richard Blackwell History of Present Illness Attending Physician: Gi Quintero MD Allergies Allergy/AdvReac Type Severity Reaction Status Date / Time No Known Allergies Allergy Verified 05/04/24 00:08 Home Medications Medication Instructions Recorded Confirmed Type isosorbide mononitrate 30 mg 30 mg PO QAM #0 tabs 08/12/14 06/23/25 History tablet,extended release 24 hr nitroglycerin 0.4 mg sublingual 0.4 mg sublingual Q5M PRN Chest 08/15/17 06/23/25 History tablet Pain ##0 rosuvastatin 40 mg tablet 40 mg PO QAM 03/30/19 06/23/25 History tamsulosin 0.4 mg capsule 0.8 mg PO DAILY 03/30/19 06/23/25 History clopidogrel 75 mg tablet 75 mg PO DAILY 03/15/21 06/23/25 History montelukast 10 mg tablet 10 mg PO DAILY 03/15/21 06/23/25 History ezetimibe 10 mg tablet 10 mg PO DAILY 07/29/21 06/23/25 History pregabalin 75 mg capsule 75 mg PO QID 05/10/22 06/23/25 History ascorbic acid (vitamin C) 1,000 mg 1 g PO HS 10/18/23 06/23/25 History tablet (Vitamin C) cyanocobalamin (vitamin B-12) 500 mcg PO HS 10/18/23 06/23/25 History 1,000 mcg tablet (Vitamin B-12) finasteride 5 mg tablet (Proscar) 5 mg PO DAILY 10/18/23 06/23/25 History metformin 500 mg tablet,extended 500 mg PO QPM 05/04/24 06/23/25 History release 24 hr metoprolol succinate 25 mg 12.5 mg PO QAM 05/04/24 06/23/25 History tablet,extended release 24 hr furosemide 20 mg tablet 20 mg PO DAILY 06/23/25 06/23/25 History spironolactone 25 mg tablet 12.5 mg PO DAILY 06/23/25 06/23/25 History Patient History Medical History Orthostasis Acute kidney injury superimposed on CKD Acute hypokalemia Elevated troponin Pneumonia Sepsis Presence of combination internal cardiac defibrillator (ICD) and pacemaker 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 CKD (chronic kidney disease), stage III Cardiomyopathy, ischemic CKD (chronic kidney disease) stage 3, GFR 30-59 ml/min Elevated troponin LBBB (left bundle branch block) Atrial fibrillation with rapid ventricular response Stenosis of left internal carotid artery Ischemic cardiomyopathy DVT prophylaxis Paroxysmal A-fib CVA (cerebral vascular accident) GERD (gastroesophageal reflux disease) Diabetes Hypertension Coronary artery disease 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 Diabetes mellitus, type 2 Surgical History History of coronary artery stent placement LAD and RCA 2019 S/P CABG x 2 Family History Mother Stroke Denies family history of Crohn's disease Colorectal cancer Ulcerative colitis Social History Smoking Status: Former smoker Tobacco Type: Cigarettes Smoking End Date: 1988; Second Hand Exposure: No; Do You Dip or Chew Tobacco: No; Hx Alcohol Use: Yes Alcohol type: beer Hx Substance Use: No Preferred Language: Kenyan Communication Ability: Effective Communication Ability Comment: [phone] 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[employer] Required: No Beliefs That Will Affect Care: None marital status: Current Living Situation: Spouse current occupation: Retired Other Information That Helps Us Care for You: No Feels Safe at Home: Yes Safety Concerns: Feels Safe At This Time Assistive Devices: Cane, Hearing Aid - Bilateral, Walker and Wheelchair Assistive Devices Comment: has assistive devices at home but does not use, uses wheelchair only w/ dog Review of Systems Review of Systems: All systems reviewed & are unremarkable except as noted in HPI & below Physical Exam Physical Exam: Obese S1S2 2/6 systolic murmur CTA B No C/C/E Warm and perfused Results & Data Vital Signs (Past 12 Hours) Vital Signs Temp Pulse Resp BP BP Pulse Ox O2 Del Method 06/24/25 11:44 36.5 C 54 L 18 132/79 95 Room Air 06/24/25 09:09 36.9 C 56 L 18 167/92 H 95 Room Air 06/24/25 04:00 36.4 C L 51 L 18 154/83 H 97 Room Air Laboratory Results Cardiac Enzymes 06/23/25 Range/Units 16:53 AST 38 (13-39) U/L Troponin I High Sens 8.4 (0-20) pg/ml B-Natriuretic Peptide 310 H (0-100) pg/ml Coagulation 06/23/25 Range/Units 16:53 PT 10.6 (9.0-12.0) Seconds APTT 25 (21-31) Seconds B-Natriuretic Peptide 310 H (0-100) pg/ml Lipids 06/24/25 Range/Units 07:54 Triglycerides 145 (0-150) mg/dl Cholesterol 134 (0-200) mg/dl HDL Cholesterol 48 mg/dl Cholesterol/HDL Ratio 2.8 (0-5) CBC 07/30/25 07/31/25 Range/Units 16:53 07:54 WBC 4.68 L 5.94 (4.8-10.8) K/ul RBC 4.47 L 4.90 (4.70-6.10) M/uL Hgb 13.1 L 14.4 (14.0-18.0) g/dl Hct 39.8 L 42.7 (42.0-52.0) % Plt Count 133 129 L (130-400) K/uL Neut # (Auto) 2.88 (1.40-6.50) K/uL Lymph # (Auto) 1.22 (1.20-3.40) K/uL Menard # (Auto) 0.47 (0.11-0.59) K/uL Eos # (Auto) 0.07 (0.00-0.50) K/uL Baso # (Auto) 0.03 (0.00-0.20) K/uL Comprehensive Metabolic Panel 06/23/25 06/24/25 Range/Units 16:53 07:54 Sodium 140 142 (136-145) mmol/L Potassium 4.2 4.1 (3.5-5.1) mmol/L Chloride 109 H 105 (98-107) mmol/L Carbon Dioxide 24 28 (21-32) mmol/L BUN 40 H 40 H (6-23) mg/dl Creatinine 1.54 H 1.47 H (0.6-1.4) mg/dl Glucose 218 H 108 H (70-99(Fasting)) mg/dl Calcium 9.0 9.6 (8.6-10.3) mg/dl AST 38 (13-39) U/L ALT 38 (7-52) U/L Alkaline Phosphatase 62 (34-104) U/L Total Protein 6.8 (6.0-8.3) gm/dl Albumin 4.1 (3.4-5.0) gm/dl Intake and Output 06/23/25 06/24/25 06/24/25 22:59 06:59 14:59 Output Total 1550 / 1550 Balance -1550 / -1550 Output: Urine 1550 / 1550 Other: Weight 126 kg 122.4 kg Weight Measurement Method Built in Bedscale Standing Scale Medications Administered Current Inpatient Medications Acetaminophen (Acetaminophen 325 Mg Tab) 650 mg PO Q4H PRN PRN Reason: Pain or Fever Stop: 07/23/25 23:12 Clopidogrel Bisulfate (Clopidogrel Bisulfate 75 Mg Tab) 75 mg PO DAILY GITA Stop: 07/24/25 08:59 Last Admin: 06/24/25 08:55 Dose: 75 mg Dextrose (Dextrose 50% 50 Ml Syringe) 25 - 50 ml IV UD PRN; Protocol PRN Reason: Hypoglycemia Protocol Stop: 07/23/25 23:12 Ezetimibe (Ezetimibe 10 Mg Tab) 10 mg PO DAILY GITA Stop: 07/24/25 08:59 Last Admin: 06/24/25 08:55 Dose: 10 mg Empagliflozin (Empagliflozin 25 Mg Tab) 25 mg PO DAILY GITA Stop: 07/24/25 08:59 Last Admin: 06/24/25 08:55 Dose: 25 mg Finasteride (Finasteride 5 Mg Tab) 5 mg PO DAILY GITA Stop: 07/24/25 08:59 Last Admin: 06/24/25 08:55 Dose: 5 mg Glucagon (Glucagon For Inj 1 Mg Vial) 1 mg SQ UD PRN; Protocol PRN Reason: Hypoglycemia Protocol Stop: 07/23/25 23:12 Glucose (Glucose 40% Gel 15 Gm Tube) 15 - 30 gm PO UD PRN; Protocol PRN Reason: Hypoglycemia Protocol Stop: 07/23/25 23:12 Glucose (Glucose 10 Tab/Tube) 4 - 8 tab PO UD PRN; Protocol PRN Reason: Hypoglycemia Protocol Stop: 07/23/25 23:12 Heparin Sodium (Porcine) (Heparin Sod 5,000 Unit/0.5 Ml Vial) 5,000 units SQ Q8 GITA Stop: 07/23/25 23:12 Last Admin: 06/24/25 13:20 Dose: 5,000 units Insulin Aspart (Insulin Aspart Per Unit Charge) 0 units SC ACHS GITA Stop: 07/23/25 23:12 Last Admin: 06/24/25 12:42 Dose: Not Given Isosorbide Mononitrate (Isosorbide Menard Extended Rel 30 Mg Tabcr) 30 mg PO QAM [facility] Stop: 07/24/25 08:59 Last Admin: 06/24/25 08:55 Dose: 30 mg Melatonin (Melatonin 3 Mg Tab) 3 mg PO HS PRN PRN Reason: Sleep Stop: 07/23/25 23:12 Metoprolol Succinate (Metoprolol Succ 25mg Ext Rel Tab) 25 mg PO QAM [facility] Stop: 07/24/25 08:59 Last Admin: 06/24/25 08:55 Dose: 25 mg Miscellaneous (Carbohydrates For Hypoglycemia ) 15 - 30 gm PO UD PRN PRN Reason: Hypoglycemia Protocol Stop: 07/23/25 23:12 Montelukast Sodium (Montelukast Sodium 10 Mg Tablet) 10 mg PO DAILY GITA Stop: 07/24/25 08:59 Last Admin: 06/24/25 08:55 Dose: 10 mg Nitroglycerin (Nitroglycerin Sl 0.4 Mg/Tab Tab) 0.4 mg SL Q5M PRN PRN Reason: Chest Pain Stop: 07/23/25 23:12 Ondansetron HCl (Ondansetron Inj 2 Mg/Ml 2 Ml Vial) 4 mg IV Q6H PRN PRN Reason: Nausea Stop: 07/23/25 23:12 Polyethylene Glycol (Polyethylene (Miralax) 17 Gm Pack) 17 gm PO DAILY PRN PRN Reason: Constipation Stop: 07/23/25 23:12 Pregabalin (Pregabalin 75 Mg Cap) 75 mg PO QID [facility] Stop: 07/23/25 23:12 Last Admin: 06/24/25 13:20 Dose: 75 mg Rosuvastatin Calcium (Rosuvastatin Calcium 20 Mg Tab) 40 mg PO QAM [facility] Stop: 07/24/25 08:59 Last Admin: 06/24/25 08:55 Dose: 40 mg Spironolactone (Spironolactone 12.5 Mg Tab) 12.5 mg PO DAILY [facility] Stop: 07/24/25 08:59 Last Admin: 06/24/25 08:55 Dose: 12.5 mg Tamsulosin HCl (Tamsulosin Hcl 0.4 Mg Cap) 0.8 mg PO DAILY [facility] Stop: 07/24/25 08:59 Last Admin: 06/24/25 08:55 Dose: 0.8 mg PG Care Time/CCT Total # of Minutes Spent Total Time Spent with Patient: Total time spent is greater than 50% in coordination of care (as documented) at patient's floor/unit and/or counseling patient: Coding Level of Care Code 00406 IN/OBS CONSULT LVL 5,80M
[2025-06-24] MEDS: VALSARTAN/SACUBITRIL 26/24MG TAB PO SCH (20:35)
[2025-06-24] MEDS: APIXABAN 5 MG TABLET PO SCH (20:35)
[2025-06-25 03:57] LABS: Hematocrit (blood only) 41.3 % (42.0-52.0); Hemoglobin 13.8 g/dl (14.0-18.0); Mean Corpuscular Hemoglobin 29.5 pg (25.0-34.0); Mean Corpuscular Volume 88.2 fL (80.0-100.0); Platelet Count 131 K/uL (130-400); RDW Standard Deviation 47.3 fL (36.4-46.3); Red Blood Count 4.68 M/uL (4.70-6.10); White Blood Count 5.61 K/ul (4.8-10.8)
[2025-06-25 04:14] LABS: Anion Gap 8.0 (3-11); Blood Urea Nitrogen 40.0 mg/dl (6-23); Calcium 9.0 mg/dl (8.6-10.3); Carbon Dioxide 25.0 mmol/L (21-32); Chloride 105.0 mmol/L (98-107); Creatinine Clr Calc Pharmacy 53.5 ml/min; Glucose 109.0 mg/dl (70-99(Fasting)); Magnesium 2.2 mg/dl (1.7-2.4); Potassium 4.1 mmol/L (3.5-5.1); Sodium 138.0 mmol/L (136-145)
[2025-06-25] MEDS: METOPROLOL SUCC 50MG EXT REL TAB PO SCH (08:53)
[2025-06-25] MEDS: SPIRONOLACTONE 25 MG TAB PO SCH (08:53)
[2025-06-25 11:54] VITALS: PULSE 59; TEMP 98.1; O2SAT 95
--- NOTE | 2025-06-25 12:20 | Cardiology Progress Note ---
Date of Service June 25, 2025 Assessment & Plan (1) Vascular dementia: Plan: * Patient with recent cognitive impairment. CT head this admission reveals a 2.6 cm focal area of decreased attenuation in the periphery of the right posterior cerebellar hemisphere consistent with encephalomalacia, due to infarct of uncertain chronicity, perhaps took place within the last month given the patient's recent cognitive decline. * CTA of the neck revealed a short segment of 90% stenosis in the proximal left internal carotid artery * MRI brain would be helpful for further characterization. Patient has a Medtronic biventricular pacemaker/AICD with left bundle lead which was placed in 2021 and having the left bundle lead plugged into the left ventricular port of the device is considered off label and therefore MRI brain cannot be performed at [facility] due to current radiology policy. Will arrange for study to be performed at [facility]. * Outpatient vascular surgery follow up of the carotid disease to be arranged. * Agree with plans for Eliquis plus clopidogrel for stroke prevention. (2) Acute on chronic heart failure with reduced ejection fraction (HFrEF, <= 40%): Plan: * Per recent device check, patient has therapeutic cardiac resynchronization pacing less than 90% of the time, likely in part due to frequent PVCs , metoprolol succinate therefore increased to 50 mg daily * Patient to continue outpatient dose of spironolactone 12.5 mg daily, Jardiance and Entresto added. * Will need basic metabolic panel at time of outpatient follow-up with PCP in about a week given changes in cardiac medications as well as need to follow-up given the plan for upcoming MRI with contrast I spent a total of 50 minutes on the date of service in preparation, delivery, and documentation of the care provided to this patient, excluding any time spent in the performance of separately billed services. Case reviewed with Dr Quintero for the purpose of coordination of care. Nain Gann DO Admission and Anticipated Discharge Date Admission Date: June 23, 2025 Subjective Patient seen in cardiology follow up . Denies subjective complaints. Telemetry reveals SR with A V sequential pacing. Cardiac History: Cardiac Problems: 1. Coronary artery disease S/P CABG x2 with a FOLEY to the LAD and vein graft to the OM with follow-up STEMI and collapse of the vein graft, PCI to the LAD and RCA March 2019 revealing a patent FOLEY 3. H/O Nonsustained ventricular tachycardia 4. Ischemic cardiomyopathy, EF 30-35%, NYHA class 3 5. Carotid artery stenosis- Follows with Vascular 6. History of CVA 7. Peripheral arterial disease with failed PTCA of the arteries of his hip under questionable circumstances at an outside facility 8. Paroxysmal atrial fibrillation, S/P PABLO/DCCV 03/16/2021, on amiodarone and Eliquis 9. Diabetes type 2 10. No flow in bilateral middle cerebral arteries with collateralization suggestive of chronic high-grade stenosis and/or occlusion 11. Intermittent LBBB 12. Medtronic BI-V AICD (left bundle lead) implant in Jul 2021 in the setting of LVEF < 35%, LBBB and Syncope 13. History of labile hypertension - with prior recommendations from neurology to keep BP on higher side to improve cerebral blood flow Review of Systems Review of Systems: All systems reviewed & are unremarkable except as noted in HPI & below Physical Exam Physical Exam: General: no acute distress and stated age Eyes: conjunctiva are pink and non-injected, sclera clear Neck: normal jugular venous pulse, no hepatojugular reflux Chest: normal shape and normal respiratory effort -Left infraclavicular ICD pocket, clean dry intact, no erythema Lungs: clear to auscultation and percussion Cardiac Exam: - regular heart sounds, no murmurs, rubs, or gallops, no jugular venous distention Abdomen: abdomen soft, non-tender, no abnormal masses and no hepatosplenomegaly Musculoskeletal: no gait disturbance, no weakness Extremities: no edema and no cyanosis Neuro: no focal deficits, cognitive impairment, poor historian Results & Data Vital Signs (Past 12 Hours) Vital Signs Temp Pulse Pulse Resp BP BP Pulse Ox 06/25/25 11:54 36.7 C 59 L 18 105/60 95 06/25/25 07:41 37.0 C 51 L 18 145/75 H 91 06/25/25 07:18 66 06/25/25 03:28 36.5 C 66 18 122/69 93 O2 Del Method 06/25/25 11:54 Room Air 06/25/25 07:41 Room Air 06/25/25 07:18 06/25/25 03:28 Room Air Laboratory Results CBC 06/25/25 Range/Units 03:39 WBC 5.61 (4.8-10.8) K/ul RBC 4.68 L (4.70-6.10) M/uL Hgb 13.8 L (14.0-18.0) g/dl Hct 41.3 L (42.0-52.0) % Plt Count 131 (130-400) K/uL Comprehensive Metabolic Panel 06/25/25 Range/Units 03:39 Sodium 138 (136-145) mmol/L Potassium 4.1 (3.5-5.1) mmol/L Chloride 105 (98-107) mmol/L Carbon Dioxide 25 (21-32) mmol/L BUN 40 H (6-23) mg/dl Creatinine 1.63 H (0.6-1.4) mg/dl Glucose 109 H (70-99(Fasting)) mg/dl Calcium 9.0 (8.6-10.3) mg/dl Intake and Output 06/24/25 06/25/25 06/25/25 22:59 06:59 14:59 Intake Total 1325 / 1325 Output Total 1625 / 2525 900 / 2525 Balance -300 / -1200 -900 / -1200 Intake: Oral 1325 / 1325 Output: Urine 1625 / 2525 900 / 2525 Other: Weight 120.2 kg Weight Measurement Method Standing Scale Coding Level of Care Code 08944 SUB INP/OBS CARE 3/50MIN History Comprehensive Exam Comprehensive Diagnoses Vascular dementia F01.50 Acute on chronic heart failure with reduced ejection fraction (HFrEF, <= 40%) I50.23 Time Spent (min) 50
--- NOTE | 2025-06-25 12:28 | Discharge Summary ---
Date of Service June 25, 2025 Admission HPI Per Admitting Provider Mr. Tulio Becerra is a 79 year old gentleman with past medical history notable for HLD, Type 2 DM, Diabetic neuropathy, Diaphragmatic hernia, Asymptomatic carotid artery stenosis, HTN, CKD 3a, Chronic heart failure(HFrecEF), CAD, ischemic cardiomyopathy, PAF, PVD, AICD, iron deficiency anemia presented to [facility] ED due to progressive weakness, liable blood pressures, and weight gain. History was gathered with assistance from , Sheri, at bedside. Patient with progressive memory issues, however it has been worse in the last month; in fact a constellation of chronic symptoms seems to have progressively worsened prompting presentation to ED. In this time, patient experiencing fluctuating blood pressures as low as 70s systolic. has been encouraging significant water intake, with some improvement. She notes these lower pressure typically mid afternoon. Patient has experienced sweats and dizziness, but hasn't correlated these events to low pressures. This is more sporadic, including episodic chills. Patient noting more shortness of breath while laying down, now prompting him to sleep in his recliner. He remarks it to be more of a nasal congestion than a sensation of dyspnea, but still uncomfortable. He has noted more dyspnea on exertion, however, stating that he would not be able to walk across the ED. He does ambulate with a walker with longer distances and has an electric cart, but recently in the house he has been "furniture" walking. Additionally, his gait has become more "shuffling" in nature, where states last month he could take deliberate steps. also mentions his memory has declined notably. The patient frequently walks into rooms and forgets his reason for going in the room; however, she denies any noted hallucinations or other behavioral concerns. He does have a history of a stroke at 30 years old of unclear etiology.This has resulted in right facial droop and right hand weakness with sensory deficit. He notes that he has been drooling more intermittently, but denies any swallowing deficits. He states that his dry weight is typically 262 lbs, but he is now 276 lbs. He reports that his shorts have become more tight and his abdomen more full feeling--he denies any changes in his eating habits. He denies any cough, wheezing, chest pain, palpations. Reports urinary frequency, but chronic in nature. He denies bowel changes. He has continued all his medications as prescribed. He states he hasn't been on eliquis in years. He denies any Etoh use, no current tobacco ( quit 1988), no illicit drugs. In the ED, vitals were notable for BP of 140-170s, HR of 70s and O2 sat of 96 on room air Imaging revealed noted vascular congestion EKG a fib with PVCs noted ED interventions: IV lasix 60mg Patient to be admitted to [facility] for further evaluation and management of acute on chronic heart failure and possible progressive of vascular dementia contributing to weakness Admission Exam Per Admitting Provider GENERAL APPEARANCE: AxOx4, generally well-appearing male, no acute distress. HEENT: NC, AT. MMM. EOMI, clear conjunctiva, oropharynx clear. Right facial droop (stable per ) predominately marked by downward turn of mouth and slight flattening of nasolabial fold NECK: Supple without lymphadenopathy. No stiffness or restricted ROM. HEART: Normal rate and regular rhythm, normal S1/S1, no m/r/g LUNGS: CTAB, moving air well. No crackles or wheezes are heard. ABDOMEN: Soft, nontender, slightly protuberant with good bowel sounds heard. BACK: No CVAT, no obvious deformity. EXTREMITIES: Without cyanosis, clubbing or edema. scar from prior knee replacment on right NEUROLOGICAL: Grossly nonfocal. Alert and oriented, moving all 4 extremit ies.facial droop as noted above, limited right hand manager hydraulic stength and poor adduction/abduction of digits 3-5 on right hand, reduced sensation, all chronic, however strength 5/5 in all proxmal muscle groups Skin: Warm and dry without any rash. Principal Diagnosis Acute on chronic heart failure Recent stroke Vascular dementia Chronic kidney disease Carotid vascular disease Discharge Exam Constitutional + well hydrated; no acute distress Eyes PERRL, conjunctivae normal, anicteric sclerae ENMT external ear and nose normal, oropharynx normal Respiratory normal respiratory effort, lungs clear to auscultation Cardiovascular Rate/Rhythm: regular rate and regular rhythm Gastrointestinal (Abdomen) normal bowel sounds, soft, nontender, no hepatosplenomegaly Musculoskeletal No pedal edema Neurologic PERRL, EOMI, accommodation nl, no face palsy, no dysarthria Discharge Data Allergies Allergy/AdvReac Type Severity Reaction Status Date / Time No Known Allergies Allergy Verified 05/04/24 00:08 Consultations 06/23/25 19:34 ED Decision to Admit Stat 06/23/25 23:13 Consult Neurology Routine Ordered Studies 06/23/25 17:13 CT head/brain wo con Stat 06/23/25 19:33 US carotid doppler BI Routine 06/24/25 11:46 CTA head w con [CT angio head w con] Urgent CTA neck with con [CT angio neck with con] Urgent Hospital Course (1) Acute on chronic heart failure with reduced ejection fraction (HFrEF, <= 40%): (2) Presence of combination internal cardiac defibrillator (ICD) and pacemaker: (3) LBBB (left bundle branch block): Plan 79 year old gentleman with past medical history notable for HLD, Type 2 DM, Diabetic neuropathy, Diaphragmatic hernia, Asymptomatic carotid artery stenosis, HTN, CKD 3a, Chronic heart failure(HFrecEF), CAD, ischemic cardiomyopathy, PAF, PVD, AICD, iron deficiency anemia presented to [facility] ED due to progressive weakness, liable blood pressures, orthopnea and weight gain #Acute on chronic heart failure with reduced EF s/p AICD 2020 #Coronary artery disease S/P CABG x2 with a FOLEY to the LAD and vein graft to the OM with follow-up STEMI and collapse of the vein graft, PCI to the LAD and RCA March 2019 revealing a patent FOLEY #Nonsustained ventricular tachycardia #Chronic LBBB #Ischemic cardiomyopathy, HFrecEF 40% 2023 Troponin negative, BNP elevated 310 TTE showed mildly dil LV, LV wall thickness mildly increased in non infarct segments, apical WMA may reflect pacemaker activation, large inferiopost WMA with scar, EF 30-35%, Grade II DD, mild to mod MR, trace TR Dry weight:[address], on admission weight was 276lbs Home diuretics: Lasix 20mg daily and spironolactone 12.5mg Patient got IV lasix inpatient Weight today is 264lb Cardiology evaluated and adjustments were made to his meds Metoprolol succinate was increased to 50mg daily Spironolactone was increased to 25mg daily Started on entresto 25-26 BID Started on jardiance #Ambulatory Dysfunction, shuffling gait #Possible vascular dementia #Carotid artery stenosis #History of CVA Reportedly had a stroke at age 30, unclear etiology CT head noted area of encephalomalacia/edema peripherally in right cerebellar hemisphere consistent with area of ischemic infarction of uncertain chronicity MRI brain could not be obtained at this time as he has a [employer] biventricular pacemaker/AICD with left bundle lead which was placed in 2021 and having the left bundle lead plugged into the left ventricular port of the device is considered off label and therefore MRI brain cannot be performed at [facility] due to current radiology policy. Cassandra Developer Dr Gann is making arrangement for study to be performed at [facility] Neuro evaluated and suspects patient had a stroke in the last month. Goal BP is normotension Continue Crestor, Zetia Outpatient neuro follow up in 4-6 weeks #Paroxysmal atrial fibrillation, S/P PABLO/DCCV 03/16/2021 Continue metoprolol succinate as above Cardiology outpatient eval from 05/2024 noted patient was on eliquis. confirmed he was on eliquis but it was stopped within the past year. 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 No significant flow seen in proximal middle cerebral arteries bilaterally Reported he had followed with Vascular at [place] and [facility] in the past Most recent follow up is with Vascular [facility] in 2021 Advised him and about urgent follow up with Vascular surgery. Continue plavix, statin Total Time Total Time Spent Total Time Spent (In Minutes): 60 Total Time Includes: Examination of the Patient, Discharge Planning, Medication Reconciliation and Communication With Other Providers Discharge Plan Discharge Items Patient Disposition: Home - Self-Care Reason For Visit: CHF, WEAKNESS Discharge Diagnosis: Acute on chronic heart failure Recent stroke Vascular dementia Chronic kidney disease Carotid vascular disease Condition on Discharge: Fair Activity: Resume your previous activity Non-emergency contact: Primary Care Provider, Cassandra Developer, Auto Collision Repair Instructor and Neurologist Call non-emergency contact if: you have any medication questions and your symptoms worsen Follow-up/Referrals: Chava Bell MD [Primary Care Provider] - (Date & Time 06/30/2025 2:00 PM Provider: Pennie Forrest, Family [facility] ) Noemy Espinoza MD [Physician] - (Date & Time 07/29/2025 1:40 PM Provider: Noemy Espinoza MD Neurology [facility]) Diet: Carb Consistent or DM2 and Heart Healthy Addtl Attending Provider Instructions: Mr Hernan Troncoso presented to the hospital with multiple complaints and was managed for the above listed diagnoses. The following changes were made to your medications: - Your metoprolol succinate was increased to 50mg daily - Your spironolactone was increased to 25mg daily - You were started on Entresto (Valsartan/Sacubitril) - You were also started on apixaban (eliquis) - STOP taking metformin for now - You were started on Jardiance for heart failure as well as diabetes Please continue taking your other medications including plavix, rosuvastatin, ezetimibe. Please ensure follow up with your Cassandra Developer and Primary Doctor. Your Primary Doctor should check Basic Metabolic Panel on follow up to monitor your Kidney function with the new medication changes. Ensure follow up with Neurology, Nephrology and Vascular Surgery. It was a pleasure taking care of you. Pending Studies at Discharge: No Stand-Alone Forms: My [employer] Smoking Cessation Medications and DC Order Prescriptions: New metoprolol succinate 50 mg Tablet Extended Release 24 Hr 50 mg PO QAM Qty: 30 0RF Eliquis 5 mg Tablet 5 mg PO BID Qty: 60 0RF Jardiance 25 mg Tablet 25 mg PO DAILY Qty: 30 0RF Entresto 24-26 mg Tablet 1 tab PO BID Qty: 60 0RF Continued isosorbide mononitrate 30 mg Tablet Extended Release 24 Hr 30 mg PO QAM Qty: 0 nitroglycerin 0.4 mg Tablet, Sublingual 0.4 mg sublingual Q5M PRN (Reason: Chest Pain) Qty: 0 tamsulosin 0.4 mg Capsule 0.8 mg PO DAILY rosuvastatin 40 mg Tablet 40 mg PO QAM montelukast 10 mg tablet 10 mg PO DAILY clopidogrel 75 mg Tablet 75 mg PO DAILY ezetimibe 10 mg tablet 10 mg PO DAILY ascorbic acid (vitamin C) [Vitamin C] 1,000 mg Tablet 1 g PO HS cyanocobalamin (vitamin B-12) [Vitamin B-12] 1,000 mcg Tablet 500 mcg PO HS finasteride [Proscar] 5 mg Tablet 5 mg PO DAILY pregabalin 75 mg capsule 75 mg PO QID furosemide 20 mg tablet 20 mg PO DAILY Changed spironolactone 25 mg tablet 25 mg PO DAILY Qty: 30 0RF Discontinued metoprolol succinate 25 mg tablet extended release 24 hr 12.5 mg PO QAM metformin 500 mg tablet extended release 24 hr 500 mg PO QPM Discharge Orders: Discharge Order (Routine); Ordered 06/25/25 Ordered By: Gi Overton/Other Patient Handouts: Managing Type 2 Diabetes Admission Data Admit Date/Time: 06/23/25 20:42 Attending Provider: Gi Quintero I. Admit Provider: Carly Nelson Primary Care Provider: Chava Bell Other Providers: Carly Nelson; Jordan Domínguez Other Interventions: Discharge Summary Assessment (RN) Last Done: 06/25/25 13:13
[2025-06-25 13:14] VITALS: BP 122/69
[2025-06-25 15:00] LABS: Folate (Folic Acid),Ser orPlas > 22.30 ng/ml (>5.38)
[2025-06-25 15:05] LABS: Vitamin B12 786 pg/ml (180-914)
--- NOTE | 2025-06-25 20:42 | Electrocardiogram Report ---
Test Reason : Blood Pressure : */* mmHG Vent. Rate : 71 BPM Atrial Rate : * BPM P-R Int : * ms QRS Dur : 258 ms QT Int : 520 ms P-R-T Axes : * 266 64 degrees QTcB Int : 565 ms AV dual-paced rhythm with frequent Premature ventricular complexes Abnormal ECG When compared with ECG of 03-May-2024 23:02, Vent. rate has decreased by 3 bpm Confirmed by Fred Louise ([id number]) on 06/25/2025 8:42:12 PM Referred By: Confirmed By: Fred Louise
== END 2025-06-25 13:54 | disposition home or self-care (01) | DRG 291 ==
LOC: ED 16:39 → 2N 20:42 → SUATTDRO 20:42 → 2N 22:45

== ENCOUNTER 2025-06-29 09:10 | Inpatient (IN) ==
[2025-06-29 09:49] LABS: Hematocrit (blood only) 44.8 % (42.0-52.0); Hemoglobin 15.2 g/dl (14.0-18.0); Immature Granulocytes # (auto) 0.01 K/uL (0.01-0.20); Immature Granulocytes % (auto) 0.2 %; Mean Corpuscular Hemoglobin 30.7 pg (25.0-34.0); Mean Corpuscular Volume 90.5 fL (80.0-100.0); Platelet Count 145 K/uL (130-400); RDW Standard Deviation 49.3 fL (36.4-46.3); Red Blood Count 4.95 M/uL (4.70-6.10); White Blood Count 4.16 K/ul (4.8-10.8)
[2025-06-29 09:50] LABS: Base Excess VBG -0.6 mEq/L; HCO3 VBG 25 mmol/L; Oxygen Saturation VBG 77.6 %; PCO2 VBG 46 mmHg (38-50); PO2 VBG 43 mmHg; pH VBG 7.35 (7.36-7.41)
--- NOTE | 2025-06-29 09:58 | Emergency Department Note ---
Impression & Plan Pulmonary edema, HOYT (dyspnea on exertion) ED Provider Note NAME: KEYANA CHAVIS AGE: 79 SEX: M : 1945 ARRIVES VIA: Walk-In INFORMANT: Patient, ED PROVIDER(S): Jese Rowe DO CHIEF COMPLAINT: Shortness of breath HPI: The patient is a 79-year-old male who presented to the emergency department for an evaluation of shortness of breath. The patient was recently admitted to our facility and discharged last Saturday. He has a history of congestive heart failure. The patient has had an 11 pound weight gain over the last few days. The patient's been having shortness of breath especially with lying flat as well as with exertion. The patient called his primary care physician and they were referred to the emergency department for further evaluation. ROS: See above HPI for pertinent positives & negatives. A total of 10 systems reviewed and were otherwise negative. PAST MEDICAL HISTORY: See Below PAST SURGICAL HISTORY: See Below FAMILY HISTORY: See Below SOCIAL HISTORY: See Below HOME MEDICATIONS: See Below ALLERGIES: See Below VITALS: See Below PHYSICAL EXAMINATION: GENERAL: Patient is awake alert in no acute distress patient is resting comfortably and showing no signs of anxiety EYES: The conjunctivae are clear. The pupils are round and reactive. EARS, NOSE, MOUTH AND THROAT: The nose is without any evidence of any deformity. NECK: The neck is nontender and supple. Positive HJR was noted. RESPIRATORY: Diminished breath sounds are noted throughout. There is no rales rhonchi or wheezing. CARDIOVASCULAR: Regular rate and rhythm noted there no murmurs rubs or gallops normal S1 normal S2. GASTROINTESTINAL: The abdomen is soft. Abdomen is nontender. MUSCULOSKELETAL/EXTREMITIES: There is no evidence of gross deformity full range of motion is noted in the hips and shoulders. SKIN: Skin is warm and dry. Trace pedal edema was noted bilaterally. NEUROLOGIC: Patient is awake alert and oriented x3 MEDICAL DECISION MAKING: The patient is a 79-year-old male who presented to the emergency department for an evaluation of shortness of breath. The patient has a history of CHF. The patient was sent to the emergency department by his primary care physician's office. The patient's had weight gain. History and physical exam do appear to be consistent with volume overload. He was treated with Lasix in the emergency department. He was able to ambulate. He did become tachypneic but did not become significantly hypoxic. I discussed his condition with the on-call [facility] hospitalist. They have agreed to evaluate the patient in the emergency department for further management and disposition. I discussed the patient's laboratory and radiographic studies with him. Triage Nursing notes reviewed. Prior medical records reviewed Vital Signs: reviewed and remarkable for bradycardia and elevated blood pressure. Differential diagnosis: Reactive airway disease, pneumonia, pneumothorax, COPD, CHF, infections, cardiac ischemia, pulmonary embolism, musculoskeletal, gastrointestinal, as well as other pathologies. ER treatment provided: See below Diagnostics interpreted by me: ECG: EKG was obtained in the emergency department. My interpretation is ventricular paced rhythm at 82 bpm. PVCs were noted. An underlying bundle branch block pattern was appreciated. This was compared to a tracing from June 23, 2025. No changes were noted. Cardiac Monitoring: An order was placed for continuous cardiac monitoring. The monitor shows a rate of 72 bpm with paced rhythm. PVCs were noted. Laboratory studies: As stated above and show below. Imaging studies: See below. Radiographic imaging was reviewed by myself Consultation(s): I discussed this case with Cristy who is on-call for the [facility] hospitalist group. Past Med/Surg History Problem List HOYT (dyspnea on exertion) (Acute) Pulmonary edema (Acute) History of CVA (cerebrovascular accident) Ischemic cardiomyopathy Vascular dementia Generalized weakness (Acute) Ambulatory dysfunction (Acute) NSVT (nonsustained ventricular tachycardia) (Acute) Acute exacerbation of CHF (congestive heart failure) (Acute) Acute on chronic heart failure with reduced ejection fraction (HFrEF, <= 40%) Lab test negative for COVID-19 virus (Acute) Chronic bundle branch block LBBB Dyslipidemia HTN (hypertension) Gout of knee Left knee DJD NSVT (nonsustained ventricular tachycardia) NSTEMI (non-ST elevated myocardial infarction) S/P repair of paraesophageal hernia (Chronic) History of Amie fundoplication (Chronic) H/O umbilical hernia repair (Chronic) x2 TIA (transient ischemic attack) (Chronic) Gout (Chronic) GERD (gastroesophageal reflux disease) (Chronic) Peripheral vascular disease (Chronic) Status post cataract extraction (Chronic) Status post repair of ventral hernia (Chronic) Status post tonsillectomy (Chronic) Medical History Orthostasis Acute kidney injury superimposed on CKD Acute hypokalemia Elevated troponin Pneumonia Sepsis Presence of combination internal cardiac defibrillator (ICD) and pacemaker 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 CKD (chronic kidney disease), stage III Cardiomyopathy, ischemic CKD (chronic kidney disease) stage 3, GFR 30-59 ml/min Elevated troponin LBBB (left bundle branch block) Atrial fibrillation with rapid ventricular response Stenosis of left internal carotid artery Ischemic cardiomyopathy DVT prophylaxis Paroxysmal A-fib CVA (cerebral vascular accident) GERD (gastroesophageal reflux disease) Diabetes Hypertension Coronary artery disease 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 Diabetes mellitus, type 2 Surgical History History of coronary artery stent placement LAD and RCA 2019 S/P CABG x 2 Family History Mother Stroke Denies family history of Crohn's disease Colorectal cancer Ulcerative colitis Social History Smoking Status: Former smoker Tobacco Type: Cigarettes Second Hand Exposure: No; Do You Dip or Chew Tobacco: No; Tobacco Cessation Education Requested by Patient: No Hx Alcohol Use: Yes Alcohol type: beer Hx Substance Use: No Preferred Language: Telugu Communication Ability: Effective Communication Ability Comment: [phone] Satellite Installer Required: No Beliefs That Will Affect Care: None marital status: Current Living Situation: Spouse current occupation: Retired Feels Safe at Home: Yes Safety Concerns: Feels Safe At This Time Assistive Devices: Cane, Hearing Aid - Bilateral and Walker Allergies Allergies Allergy/AdvReac Type Severity Reaction Status Date / Time No Known Allergies Allergy Verified 05/04/24 00:08 Home Meds Home Medications Medication Instructions Recorded Confirmed isosorbide mononitrate 30 mg 30 mg PO QAM #0 tabs 08/12/14 06/29/25 tablet,extended release 24 hr nitroglycerin 0.4 mg sublingual 0.4 mg sublingual Q5M PRN Chest 08/15/17 06/29/25 tablet Pain ##0 rosuvastatin 40 mg tablet 40 mg PO QAM 03/30/19 06/29/25 tamsulosin 0.4 mg capsule 0.4 mg PO BID 03/30/19 06/29/25 clopidogrel 75 mg tablet 75 mg PO QAM 03/15/21 06/29/25 montelukast 10 mg tablet 10 mg PO QAM 03/15/21 06/29/25 ezetimibe 10 mg tablet 10 mg PO QAM 07/29/21 06/29/25 pregabalin 75 mg capsule 75 mg PO QID 05/10/22 06/29/25 ascorbic acid (vitamin C) 1,000 mg 1 g PO HS 10/18/23 06/29/25 tablet (Vitamin C) cyanocobalamin (vitamin B-12) 500 mcg PO HS 10/18/23 06/29/25 1,000 mcg tablet (Vitamin B-12) finasteride 5 mg tablet (Proscar) 5 mg PO DAILY 10/18/23 06/29/25 furosemide 20 mg tablet 20 mg PO QAM 06/23/25 06/29/25 empagliflozin 25 mg tablet 25 mg PO QAM 06/29/25 06/29/25 (Jardiance) spironolactone 25 mg tablet 25 mg PO QAM 06/29/25 06/29/25 Previous Rx's Medication Instructions Recorded apixaban 5 mg tablet (Eliquis) 5 mg PO BID #60 tabs 06/25/25 metoprolol succinate 50 mg 50 mg PO QAM #30 tabs 06/25/25 tablet,extended release 24 hr sacubitril 24 mg-valsartan 26 mg 1 tab PO BID #60 tabs 06/25/25 tablet (Entresto) Results & Data (ED) Vital Signs Vital Signs - 24 hr 06/29/25 09:13 06/29/25 09:25 06/29/25 09:48 Temperature 36.5 C Temperature Source Temporal Artery Scan Pulse Rate 48 L 70 80 Pulse Rate [Apical] Pulse Rate [Exercises] Pulse Rate [Recovery] Pulse Rhythm [Apical] Pulse Strength [Apical] Respiratory Rate 18 16 Respiratory Rate [Exercises] Respiratory Rate [Recovery] Respiratory Effort / Characteristics Non-Labored Spontaneous Respiratory Depth Normal Respiratory Pattern Blood Pressure 140/78 Blood Pressure [Right Arm] Blood Pressure Mean 98 Blood Pressure Mean [Right Arm] Pulse Oximetry 97 98 Pulse Oximetry [Exercises] Pulse Oximetry [Recovery] Oxygen Delivery Method Nasal Cannula Room Air Sepsis New/Unexplained Change in Mental Status N/A Sepsis Action Taken by Nursing No Action Required 06/29/25 10:31 06/29/25 10:31 06/29/25 10:31 Temperature Temperature Source Pulse Rate Pulse Rate [Apical] 76 Pulse Rate [Exercises] Pulse Rate [Recovery] Pulse Rhythm [Apical] Pulse Strength [Apical] Respiratory Rate 20 Respiratory Rate [Exercises] Respiratory Rate [Recovery] Respiratory Effort / Characteristics Non-Labored Spontaneous Respiratory Depth Normal Respiratory Pattern Blood Pressure Blood Pressure [Right Arm] 171/91 H Blood Pressure Mean Blood Pressure Mean [Right Arm] 117 Pulse Oximetry 98 98 97 Pulse Oximetry [Exercises] Pulse Oximetry [Recovery] Oxygen Delivery Method Room Air Room Air Sepsis New/Unexplained Change in Mental Status Sepsis Action Taken by Nursing 06/29/25 11:13 06/29/25 11:52 06/29/25 12:03 Temperature Temperature Source Pulse Rate Pulse Rate [Apical] 82 71 67 Pulse Rate [Exercises] Pulse Rate [Recovery] Pulse Rhythm [Apical] Pulse Strength [Apical] Respiratory Rate 20 20 20 Respiratory Rate [Exercises] Respiratory Rate [Recovery] Respiratory Effort / Characteristics Non-Labored Non-Labored Non-Labored Respiratory Depth Normal Normal Normal Respiratory Pattern Blood Pressure Blood Pressure [Right Arm] 163/106 H 179/108 H 162/106 H Blood Pressure Mean Blood Pressure Mean [Right Arm] 125 131 124 Pulse Oximetry 94 95 99 Pulse Oximetry [Exercises] Pulse Oximetry [Recovery] Oxygen Delivery Method Room Air Room Air Room Air Sepsis New/Unexplained Change in Mental Status Sepsis Action Taken by Nursing 06/29/25 12:40 06/29/25 12:52 Temperature Temperature Source Pulse Rate Pulse Rate [Apical] 70 Pulse Rate [Exercises] 70 Pulse Rate [Recovery] 80 Pulse Rhythm [Apical] Regular Pulse Strength [Apical] Normal Respiratory Rate 22 Respiratory Rate [Exercises] 20 Respiratory Rate [Recovery] 30 H Respiratory Effort / Characteristics Non-Labored Spontaneous Respiratory Depth Normal Respiratory Pattern Regular Blood Pressure Blood Pressure [Right Arm] 163/101 H Blood Pressure Mean Blood Pressure Mean [Right Arm] 121 Pulse Oximetry 98 Pulse Oximetry [Exercises] 92 Pulse Oximetry [Recovery] 98 Oxygen Delivery Method Room Air Room Air Sepsis New/Unexplained Change in Mental Status Sepsis Action Taken by Alf Medications Current Medication List: was personally reviewed by me Laboratory Data Attestation: I reviewed the patient's lab results. 06/29/25 09:32 06/29/25 09:32 Lab Results 06/29/25 06/29/25 06/29/25 Range/Units 09:32 09:44 11:10 WBC 4.16 L (4.8-10.8) K/ul RBC 4.95 (4.70-6.10) M/uL Hgb 15.2 (14.0-18.0) g/dl Hct 44.8 (42.0-52.0) % MCV 90.5 (80.0-100.0) fL MCH 30.7 (25.0-34.0) pg MCHC 33.9 (32.0-36.0) g/dL RDW Std Deviation 49.3 H (36.4-46.3) fL RDW Coeff of Leela 15.0 H (11.5-14.5) % Plt Count 145 (130-400) K/uL MPV 11.9 (9.4-12.4) fL Immature Gran % (Auto) 0.2 % Neut % (Auto) 64.5 % Lymph % (Auto) 22.6 % Day % (Auto) 9.4 % Eos % (Auto) 1.9 % Baso % (Auto) 1.4 % Neut # (Auto) 2.68 (1.40-6.50) K/uL Lymph # (Auto) 0.94 L (1.20-3.40) K/uL Day # (Auto) 0.39 (0.11-0.59) K/uL Eos # (Auto) 0.08 (0.00-0.50) K/uL Baso # (Auto) 0.06 (0.00-0.20) K/uL Immature Gran # (Auto) 0.01 (0.01-0.20) K/uL PT 10.9 (9.0-12.0) Seconds INR 1.0 (0.9-1.1) APTT 31 (21-31) Seconds PTT Ratio 1.2 VBG pH 7.35 L (7.36-7.41) VBG pCO2 46 (38-50) mmHg VBG pO2 43 mmHg VBG HCO3 25 mmol/L VBG O2 Saturation 77.6 % VBG Base Excess -0.6 mEq/L Sodium 141 (136-145) mmol/L Potassium 4.5 (3.5-5.1) mmol/L Chloride 108 H (98-107) mmol/L Carbon Dioxide 27 (21-32) mmol/L Anion Gap 6 (3-11) BUN 51 H (6-23) mg/dl Creatinine 1.81 H (0.6-1.4) mg/dl Est Cr Clr Drug Dosing Not Reportable eGFR 38.04 BUN/Creatinine Ratio 28.2 H (10-20) Glucose 102 H (70-99(Fasting)) mg/dl Calcium 9.2 (8.6-10.3) mg/dl Magnesium 2.9 H (1.7-2.4) mg/dl Total Bilirubin 0.7 (0.2-1.0) mg/dl AST 31 (13-39) U/L ALT 30 (7-52) U/L Alkaline Phosphatase 65 (34-104) U/L Troponin I High Sens 11.5 (0-20) pg/ml B-Natriuretic Peptide 474 H (0-100) pg/ml Total Protein 7.8 (6.0-8.3) gm/dl Albumin 4.6 (3.4-5.0) gm/dl Globulin 3.2 (2.5-4.0) gm/dl Albumin/Globulin Ratio 1.4 (0.9-2) Urine Color Yellow Urine Appearance Clear (Clear) Urine pH 6.0 (4.5-7.5) Ur Specific [place] 1.010 (1.000-1.030) Urine Protein Negative (Negative) Urine Glucose (UA) 1+ H (Negative) Urine Ketones Negative (Negative) Urine Blood Negative (Negative) Urine Nitrite Negative (Negative) Urine Bilirubin Negative (Negative) Urine Urobilinogen Negative (Negative) Ur Leukocyte Esterase Negative (Negative) Urine Comment Administered Medications Discontinued Medications Furosemide (Furosemide 40 Mg/4 Ml Vial) 40 mg IV ONE ONE Stop: 06/29/25 10:12 Last Admin: 06/29/25 10:42 Dose: 40 mg Documented By: NELL Imaging Data Attestation: I personally reviewed and interpreted this imaging study as follows: My Impression: 1 view chest x-ray was obtained in the emergency department. My interpretation is cardiomegaly with volume overload, final report below. Radiologist's Impression: Chest X-Ray 06/29/25 09:27 SINGLE VIEW CHEST CLINICAL HISTORY: Dyspnea FINDINGS: 2 AP, portable, upright chest radiographs are compared to study dated 06/23/2025 and correlated with chest CT dated 03/30/2019. The patient is status post midline sternotomy. A 3-lead cardiac AICD is unchanged in position. The heart is enlarged noting atherosclerotic calcification of the thoracic aorta. There is evidence of congestive failure. Scarring/atelectasis is noted at the lung bases. No large pleural effusion is identified. No pneumothorax is seen. The skeletal structures are osteopenic. The bony thorax is grossly intact. IMPRESSION: 1. Cardiomegaly and AICD with evidence of congestive failure. 2. No airspace consolidation or large pleural effusion is seen. ACT 112: Negative or not required by law. Electronically signed by: Linden Thacker M.D. 06/29/2025 10:25 AM Discharge Plan Visit Data Chief Complaint: Shortness of Breath/Dyspnea Stated Complaint: REF BY DR HO, ROBERTO ED Provider: Jese Roew Discharge Problem: Pulmonary edema, HOYT (dyspnea on exertion) Patient Disposition: Admitted As Inpatient Condition: Fair Discharge Instructions Interventions: ED Discharge Assessment Last Done: 06/29/25 13:58
[2025-06-29 10:16] LABS: Alanine Aminotransferase 30 U/L (7-52); Albumin Globulin Ratio 1.4 (0.9-2); Alkaline Phosphatase 65 U/L (34-104); Anion Gap 6 (3-11); Bilirubin,Total 0.7 mg/dl (0.2-1.0); Blood Urea Nitrogen 51 mg/dl (6-23); Calcium 9.2 mg/dl (8.6-10.3); Carbon Dioxide 27 mmol/L (21-32); Chloride 108 mmol/L (98-107); Globulin 3.2 gm/dl (2.5-4.0); Glucose 102 mg/dl (70-99(Fasting)); Magnesium 2.9 mg/dl (1.7-2.4); Potassium 4.5 mmol/L (3.5-5.1); Sodium 141 mmol/L (136-145); Total Protein 7.8 gm/dl (6.0-8.3)
[2025-06-29 10:20] LABS: INR 1.0 (0.9-1.1); Partial Thromboplastin Time 31 Seconds (21-31); Prothrombin Time 10.9 Seconds (9.0-12.0)
--- NOTE | 2025-06-29 10:26 | XRay Report ---
SINGLE VIEW CHEST CLINICAL HISTORY: Dyspnea FINDINGS: 2 AP, portable, upright chest radiographs are compared to study dated 06/23/2025 and correla rafael with chest CT dated 03/30/2019. The patient is status post midline sternotomy. A 3-lead cardiac AIC D is unchanged in position. The heart is enlarged noting atherosclerotic calcification of the thoraci c aorta. There is evidence of congestive failure. Scarring/atelectasis is noted at the lung bases. No large pleural effusion is identified. No pneumothorax is seen. The skeletal structures are osteopeni c. The bony thorax is grossly intact. IMPRESSION: 1. Cardiomegaly and AICD with evidence of congestive failure. 2. No airspace consolidation or large pleural effusion is seen. ACT 112: Negative or not required by law. Electronically signed by: Linden Thacker M.D. 06/29/2025 10:25 AM
[2025-06-29] MEDS: FUROSEMIDE 40 MG/4 ML VIAL IV ONE (10:42)
--- NOTE | 2025-06-29 11:17 | Electrocardiogram Report ---
Test Reason : Blood Pressure : */* mmHG Vent. Rate : 82 BPM Atrial Rate : 43 BPM P-R Int : 144 ms QRS Dur : 188 ms QT Int : 448 ms P-R-T Axes : 147 -85 58 degrees QTcB Int : 523 ms AV sequential pacing with frequent and consecutive ventricular ectopy Abnormal ECG When compared with ECG of 23-Jun-2025 16:53, Vent. rate has increased by 11 bpm Confirmed by Steven Hensley ([id number]) on 06/29/2025 11:17:16 AM Referred By: Confirmed By: Steven Hensley
[2025-06-29 11:21] LABS: Appearance Urine Clear (Clear); Glucose Urine UA 1+ (Negative)
--- NOTE | 2025-06-29 13:19 | History & Physical Report ---
Date of Service June 29, 2025 Assessment & Plan (1) Acute on chronic heart failure with reduced ejection fraction (HFrEF, <= 40%): (2) Ischemic cardiomyopathy: (3) Vascular dementia: (4) History of CVA (cerebrovascular accident): Plan Patient is a 79-year-old male with PMHx significant for CAD s/p CABG x 2 with a FOLEY to the LAD and vein graft to the OM with follow-up STEMI and collapse of the vein graft [PCI to the LAD and RCA in March 2019 revealing a patent FOLEY], history of nonsustained ventricular tachycardia, ischemic cardiomyopathy [EF = 30-35% - May 2025], HFrEF s/p BIV AICD in July 2021, asymptomatic bilateral carotid artery stenosis, history of CVA at age 30 of unclear etiology with residual R-sided facial droop and R hand weakness/sensory deficit, PAD with failed PTCA of the arteries of his hip under questionable circumstances at an outside facility, PAF s/p PABLO/DCCV in February 2021, DMII, no flow in bilateral middle cerebral arteries with collateralization suggestive of chronic high-grade stenosis and/or occlusion, intermittent LBBB, labile HTN [with prior recommendations from neurology to keep BP on higher side to improve cerebral blood flow], vascular dementia, CKD stage IIIa, postgastric surgery syndrome and EDGAR who presented to the ED from home with complaints of HOYT, orthopnea and weight gain of 11lb since being discharged from our service on 06/25/25. Patient was admitted from 06/23/25-06/25/25 with acute on chronic HFrEF, ambulatory dysfunction in the setting of progressive vascular dementia vs possible undiagnosed CVA within the past month. Following adjustments made to his medication list: metoprolol succinate increased to 50mg daily [re: therapeutic cardiac resynchronization pacing less than 90% of the time likely in part due to frequent PVCs on recent device check], Aldactone increased to 25mg daily, started on Entresto BID, started on Jardiance, restarted on Eliquis [unclear reasoning for stopping this in the first place]. TTE, 06/24/25: EF 30-35%, LV wall thickness mildly increased in non-infarct segments, mildly dilated LV, large inferoposterior wall motion abnormality with scar, grade II DD consistent with elevated LA pressure, mild-mod MR, trace TR. #Acute on chronic HFrEF #Ischemic cardiomyopathy #History of NSVT s/p BIV AICD in July 2021 #Chronic LBBB #CAD s/p CABG x 2 with a FOLEY to the LAD and vein graft to the OM with follow-up STEMI and collapse of the vein graft, PCI to the LAD and RCA in March 2019 revealing a patent FOLEY HS-troponin x 1 neg, BNP 474 Wt today 126.3kg; wt previously 120.2kg on 06/25/25 = 6.1kg wt gain CXR: evidence of congestive failure, no large pleural effusion S/p po Lasix 20mg, po Aldactone 25mg at home plus additional 40mg IV Lasix in ED Check abdominal US, re: + fluid wave on exam (? anasarca) Appreciate cards consult Will continue IV Lasix 20mg BID for now with next dose this evening pending cards eval, hold home diuretics Strict I&Os, daily wts (standing if able), tele monitoring Continue Entresto, Jardestineyance, BB Continue Plavix, statin, Zetia #Vascular dementia --> progressive memory deficits x past 1-2 months #Recent functional decline/ambulatory dysfunction with shuffling gait Evaluated by neuro last admission: suspect pt may have experienced a stroke over the past month -CT head noted area of encephalomalacia/edema peripherally in right cere bellar hemisphere consistent with area of ischemic infarction of uncertain chronicity -MRI brain could not be obtained at this time as he has a [employer] biventricular pacemaker/AICD with left bundle lead which was placed in 2021 and having the left bundle lead plugged into the left ventricular port of the device is considered off label and therefore MRI brain cannot be performed at [facility] due to current radiology policy -Need to ensure pt is arranged for OP MRI brain study - will need to be completed at [facility] (Dr. Gann previously arranging for this study to be performed) -Need to ensure OP neuro f/u in 4-6wks #Bilateral carotid artery stenosis CTA head and neck on 06/24/25 showed 90% stenosis of proximal left ICA due to extensive plaque, 40% stenosis of proximal right ICA, mod to severe stenosis of intracranial left Vertebral artery and moderate stenosis of intracranial right vertebral artery, no significant flow seen in proximal middle cerebral arteries bilaterally -Need to arrange OP vascular surgery eval Continue Plavix, statin, Zetia #PAF s/p PABLO/DCCV in February 2021 Continue BB, Eliquis #DMII Hgb A1c 6.7% as of 02/2025, recheck in AM Previously on metformin --> stopped last admission 2/2 starting Jardiance Continue Jardiance SSI protocol while inpt, follow BSG checks ACHS #CKD stage IIIa Cr 1.81 today, previously Cr 1.63 on 06/25/25 Difficult to determine baseline Cr given recent med changes, lapses in OP monitoring Doubt MCKENZIE, continue to monitor DVT Prophylaxis: Eliquis Disposition: Observation in med/tele Patient seen in collaboration with Dr. Swift. Please see addendum. I spent a total of 60 minutes coordinating, documenting, and providing care for this patient excluding time spent in the performance of separately billed services or time spent by another provider/QHP. This included personally reviewing all current laboratories and imaging studies, medical reconciliation, outpatient chart review and discussion with specialists. This chart was completed in part utilizing Speech Voice Recognition Software. Grammatical errors, random word insertions, pronoun errors, and incomplete sentences are an occasional consequence of this system due to software limitations, ambient noise, and hardware issues. Any formal questions or concerns about the content, text, or information contained within the body of this dictation should be directly addressed to the provider for clarification. History of Present Illness Chief Complaint: SOB/dyspnea Primary Care Provider: Chava Bell MD Patient is a 79-year-old male with PMHx significant for CAD s/p CABG x 2 with a FOLEY to the LAD and vein graft to the OM with follow-up STEMI and collapse of the vein graft [PCI to the LAD and RCA in March 2019 revealing a patent FOLEY], history of nonsustained ventricular tachycardia, ischemic cardiomyopathy [EF = 30-35% - May 2025], HFrEF s/p BIV AICD in July 2021, asymptomatic bilateral carotid artery stenosis, history of CVA at age 30 of unclear etiology with residual R-sided facial droop and R hand weakness/sensory deficit, PAD with failed PTCA of the arteries of his hip under questionable circumstances at an outside facility, PAF s/p PABLO/DCCV in February 2021, DMII, no flow in bilateral middle cerebral arteries with collateralization suggestive of chronic high-grade stenosis and/or occlusion, intermittent LBBB, labile HTN [with prior recommendations from neurology to keep BP on higher side to improve cerebral blood flow], vascular dementia, CKD stage IIIa, postgastric surgery syndrome and EDGAR who presented to the ED from home with complaints of increased SOB and weight gain of 11lb since being discharged from our service on 06/25/25. History gathered from the patient with assistance from his , Piper, at bedside. Patient recently discharged from our service on 06/25/25 to home without services. Patient was admitted from 06/23/25-06/25/25 with acute on chronic HFrEF, ambulatory dysfunction in the setting of progressive vascular dementia vs possible undiagnosed CVA within the past month. Following adjustments made to his medication list: metoprolol succinate increased to 50mg daily [re: therapeutic cardiac resynchronization pacing less than 90% of the time likely in part due to frequent PVCs on recent device check], Aldactone increased to 25mg daily, started on Entresto BID, started on Jardiance, restarted on Eliquis [unclear reasoning for stopping this in the first place]. Since his discharge home last week, patient has gained approximately 11lbs despite medication compliance with notable orthopnea and worsening HOYT. notes that he was audibly "gurgling on fluid" during sleep. No reported chest pain. No change in urinary habits or reported fevers. No diet or appetite changes. CXR completed in ED and noted congestive changes. S/p 40mg IV Lasix in ED. Patient denies any SOB at rest. Maintaining O2 saturations in the upper 90s on RA. Vitals notable for labile HTN but otherwise remained stable; BP 170/110 at the time of my evaluation. SBP has been trending anywhere between 110s-180s at home per his . TTE, 06/24/25: EF 30-35%, LV wall thickness mildly increased in non-infarct segments, mildly dilated LV, large inferoposterior wall motion abnormality with scar, grade II DD consistent with elevated LA pressure, mild-mod MR, trace TR. Weight today 126.3kg; weight previously 120.2kg on 06/25/25. Allergies Allergy/AdvReac Type Severity Reaction Status Date / Time No Known Allergies Allergy Verified 05/04/24 00:08 Home Medications Medication Instructions Recorded Confirmed Type isosorbide mononitrate 30 mg 30 mg PO QAM #0 tabs 08/12/14 06/29/25 History tablet,extended release 24 hr nitroglycerin 0.4 mg sublingual 0.4 mg sublingual Q5M PRN Chest 08/15/17 06/29/25 History tablet Pain ##0 rosuvastatin 40 mg tablet 40 mg PO QAM 03/30/19 06/29/25 History tamsulosin 0.4 mg capsule 0.4 mg PO BID 03/30/19 06/29/25 History clopidogrel 75 mg tablet 75 mg PO QAM 03/15/21 06/29/25 History montelukast 10 mg tablet 10 mg PO QAM 03/15/21 06/29/25 History ezetimibe 10 mg tablet 10 mg PO QAM 07/29/21 06/29/25 History pregabalin 75 mg capsule 75 mg PO QID 05/10/22 06/29/25 History ascorbic acid (vitamin C) 1,000 mg 1 g PO HS 10/18/23 06/29/25 History tablet (Vitamin C) cyanocobalamin (vitamin B-12) 500 mcg PO HS 10/18/23 06/29/25 History 1,000 mcg tablet (Vitamin B-12) finasteride 5 mg tablet (Proscar) 5 mg PO DAILY 10/18/23 06/29/25 History furosemide 20 mg tablet 20 mg PO QAM 06/23/25 06/29/25 History apixaban 5 mg tablet (Eliquis) 5 mg PO BID #60 tabs 06/25/25 06/29/25 Rx metoprolol succinate 50 mg 50 mg PO QAM #30 tabs 06/25/25 06/29/25 Rx tablet,extended release 24 hr sacubitril 24 mg-valsartan 26 mg 1 tab PO BID #60 tabs 06/25/25 06/29/25 Rx tablet (Entresto) empagliflozin 25 mg tablet 25 mg PO QAM 06/29/25 06/29/25 History (Jardiance) spironolactone 25 mg tablet 25 mg PO QAM 06/29/25 06/29/25 History Past Med/Surg History Problem List HOYT (dyspnea on exertion) (Acute) Pulmonary edema (Acute) History of CVA (cerebrovascular accident) Ischemic cardiomyopathy Vascular dementia Generalized weakness (Acute) Ambulatory dysfunction (Acute) NSVT (nonsustained ventricular tachycardia) (Acute) Acute exacerbation of CHF (congestive heart failure) (Acute) Acute on chronic heart failure with reduced ejection fraction (HFrEF, <= 40%) Lab test negative for COVID-19 virus (Acute) Chronic bundle branch block LBBB Dyslipidemia HTN (hypertension) Gout of knee Left knee DJD NSVT (nonsustained ventricular tachycardia) NSTEMI (non-ST elevated myocardial infarction) S/P repair of paraesophageal hernia (Chronic) History of Amie fundoplication (Chronic) H/O umbilical hernia repair (Chronic) x2 TIA (transient ischemic attack) (Chronic) Gout (Chronic) GERD (gastroesophageal reflux disease) (Chronic) Peripheral vascular disease (Chronic) Status post cataract extraction (Chronic) Status post repair of ventral hernia (Chronic) Status post tonsillectomy (Chronic) Medical History Orthostasis Acute kidney injury superimposed on CKD Acute hypokalemia Elevated troponin Pneumonia Sepsis Presence of combination internal cardiac defibrillator (ICD) and pacemaker 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 CKD (chronic kidney disease), stage III Cardiomyopathy, ischemic CKD (chronic kidney disease) stage 3, GFR 30-59 ml/min Elevated troponin LBBB (left bundle branch block) Atrial fibrillation with rapid ventricular response Stenosis of left internal carotid artery Ischemic cardiomyopathy DVT prophylaxis Paroxysmal A-fib CVA (cerebral vascular accident) GERD (gastroesophageal reflux disease) Diabetes Hypertension Coronary artery disease 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 Diabetes mellitus, type 2 Surgical History History of coronary artery stent placement LAD and RCA 2019 S/P CABG x 2 Family History Mother Stroke Denies family history of Crohn's disease Colorectal cancer Ulcerative colitis Social History Smoking Status: Former smoker Tobacco Type: Cigarettes Second Hand Exposure: No; Do You Dip or Chew Tobacco: No; Tobacco Cessation Education Requested by Patient: No Hx Alcohol Use: Yes Alcohol type: beer Hx Substance Use: No Preferred Language: Chinese Communication Ability: Effective Communication Ability Comment: [phone] Critical Care Physician Required: No Beliefs That Will Affect Care: None marital status: Current Living Situation: Spouse current occupation: Retired Feels Safe at Home: Yes Safety Concerns: Feels Safe At This Time Assistive Devices: Cane, Hearing Aid - Bilateral and Walker Review of Systems Review of Systems: At least ten systems reviewed and negative, except as noted in the HPI. Physical Exam Constitutional: well developed and + obese; not in distress Eyes: no conjunctival abnormality ENMT: Ears: no hearing impairment and no external ear abnormality Mouth: oral mucous membranes not dry (chronic R-sided facial droop s/p CVA at age 30 - unchanged) Neck: trachea midline, no thyromegaly Respiratory: normal respiratory effort and able to speak in complete sentences; no respiratory distress and no cough Auscultation: + crackles (trace bilaterally L>R); no wheezes Cardiovascular: Rate/Rhythm: regular rate and regular rhythm Heart Sounds: no murmur Extremities: no pedal edema Gastrointestinal (Abdomen): Inspection/Auscultation: abdomen normal to inspection and normal bowel sounds; abdomen not distended Percussion/Palpation: abdomen soft; abdomen nontender Musculoskeletal: Extremities: extremities normal to inspection and strength 5/5 throughout (limited R hand food and beverage lead strength s/p prior CVA at age 30 - unchanged) Skin: no rashes, warm and dry Neurologic: CN's II-XI intact bilaterally (grossly - not formally tested) Psychiatric: Orientation: alert and oriented x 3 Results & Data Results & Data Vital Signs (Past 12 Hours) Vital Signs Temp Pulse Pulse Pulse Pulse Resp Resp 06/29/25 12:52 70 22 06/29/25 12:40 70 80 20 06/29/25 12:03 67 20 06/29/25 11:52 71 20 06/29/25 11:13 82 20 06/29/25 10:31 06/29/25 10:31 76 20 06/29/25 10:31 06/29/25 09:48 80 06/29/25 09:25 70 16 06/29/25 09:13 36.5 C 48 L 18 Resp BP BP Pulse Ox Pulse Ox Pulse Ox O2 Del Method 06/29/25 12:52 163/101 H 98 Room Air 06/29/25 12:40 30 H 92 98 Room Air 06/29/25 12:03 162/106 H 99 Room Air 06/29/25 11:52 179/108 H 95 Room Air 06/29/25 11:13 163/106 H 94 Room Air 06/29/25 10:31 97 Room Air 06/29/25 10:31 171/91 H 98 06/29/25 10:31 98 Room Air 06/29/25 09:48 06/29/25 09:25 98 Room Air 06/29/25 09:13 140/78 97 Nasal Cannula Laboratory Results Short CBC 06/29/25 Range/Units 09:32 WBC 4.16 L (4.8-10.8) K/ul Hgb 15.2 (14.0-18.0) g/dl Hct 44.8 (42.0-52.0) % Plt Count 145 (130-400) K/uL BMP 06/29/25 09:32 Sodium 141 Potassium 4.5 Chloride 108 H Carbon Dioxide 27 BUN 51 H Creatinine 1.81 H Glucose 102 H Calcium 9.2 Liver Function 06/29/25 Range/Units 09:32 Total Bilirubin 0.7 (0.2-1.0) mg/dl AST 31 (13-39) U/L ALT 30 (7-52) U/L Alkaline Phosphatase 65 (34-104) U/L Albumin 4.6 (3.4-5.0) gm/dl Urine 06/29/25 Range/Units 11:10 Urine Color Yellow Urine Appearance Clear (Clear) Urine pH 6.0 (4.5-7.5) Ur Specific Biddle 1.010 (1.000-1.030) Urine Protein Negative (Negative) Urine Glucose (UA) 1+ H (Negative) Diagnostic Findings Chest X-Ray 06/29/25 09:27 SINGLE VIEW CHEST CLINICAL HISTORY: Dyspnea FINDINGS: 2 AP, portable, upright chest radiographs are compared to study dated 06/23/2025 and correlated with chest CT dated 03/30/2019. The patient is status post midline sternotomy. A 3-lead cardiac AICD is unchanged in position. The heart is enlarged noting atherosclerotic calcification of the thoracic aorta. There is evidence of congestive failure. Scarring/atelectasis is noted at the lung bases. No large pleural effusion is identified. No pneumothorax is seen. The skeletal structures are osteopenic. The bony thorax is grossly intact. IMPRESSION: 1. Cardiomegaly and AICD with evidence of congestive failure. 2. No airspace consolidation or large pleural effusion is seen. ACT 112: Negative or not required by law. Electronically signed by: Linden Thacker M.D. 06/29/2025 10:25 AM Medications Administered Discontinued Medications Furosemide (Furosemide 40 Mg/4 Ml Vial) 40 mg IV ONE ONE Stop: 06/29/25 10:12 Last Admin: 06/29/25 10:42 Dose: 40 mg Documented By: FG Code Status & VTE Plan Code Status FULL CODE - As per discussion with the patient and his at bedside. Supervising Physician Co-Signing Physician Notes Patient seen and examined at bedside. at bedside. Patient 12 pounds up from recent admission several days ago. Patient taking meds as prescribed. Worsening orthopnea at home is primary symptom and mild SOB. On exam, no pitting edema bilaterally, fluid wave notable in abdomen, no pitting edema in abdomen noted, JVP mildly elevated. On room air, creatinine around baseline, mildly elevated BNP above age adjusted baseline. Chest xray with pulmonary edema. Recent echo HFrEF (EF 30-35%) with grade II diastolic dysfunction. Patient presenting to ED with recurrent, symptomatic decompensated HFrEF (EF 30- 35%), although no evidence of hypoxia. HR limits increased metoprolol dosing, already on entresto, farxiga, aldactone. Cardiology consult, appreciate recs for outpatient management. Ascites survey given fluid wave, could be source of weight gain, although suspicion for ascites is relatively low given history. I have seen and discussed the case with the collaborating advanced practitioner. I agree with the above H&P. I have reviewed and confirmed the patients medical history, the findings on physical examination, and the patients diagnosis and treatment plan with Vladislav CANALES and agree with the information documented. I spent a total of 30 minutes coordinating, documenting, and providing care for this patient excluding time spent in the performance of separately billed services. All of the aforementioned completed outside of collaborating with the assigned advanced practitioner for a full treatment plan. I have reviewed the advanced practitioner's documentation, and I agree with, and take responsibility for the plan of care (3) Vascular dementia Dementia behavioral or psychological symptom: unspecified whether behavioral, psychotic, or mood disturbance or anxiety Dementia severity: unspecified severity Qualified Code(s): F01.50 - Vascular dementia, unspecified severity, without behavioral disturbance, psychotic disturbance, mood disturbance, and anxiety
[2025-06-29] MEDS ORDERED: MAGNESIUM HYDROXIDE SUSP 30 ML UDC PO PRN (14:17)
[2025-06-29] MEDS ORDERED: PROMETHAZINE 6.25 MG/50.25 ML BAG IV PRN (14:17)
[2025-06-29] MEDS ORDERED: POLYETHYLENE (MIRALAX) 17 GM PACK PO PRN (14:17)
[2025-06-29] MEDS ORDERED: ACETAMINOPHEN 325 MG TAB PO PRN (14:17)
[2025-06-29] MEDS ORDERED: GLUCAGON FOR INJ 1 MG VIAL SQ PRN (15:08)
[2025-06-29] MEDS ORDERED: GLUCOSE 40% GEL 15 GM TUBE PO PRN (15:08)
[2025-06-29] MEDS ORDERED: CARBOHYDRATES FOR HYPOGLYCEMIA PO PRN (15:08)
[2025-06-29] MEDS ORDERED: GLUCOSE 10 TAB/TUBE PO PRN (15:08)
[2025-06-29] MEDS ORDERED: DEXTROSE 50% 50 ML SYRINGE IV PRN (15:08)
--- NOTE | 2025-06-29 15:20 | Cardiology Consultation ---
Date of Consultation June 29, 2025 Assessment & Plan (1) History of CVA (cerebrovascular accident): (2) Ischemic cardiomyopathy: (3) Acute on chronic heart failure with reduced ejection fraction (HFrEF, <= 40%): (4) HTN (hypertension): Plan (1)HFrEF (2)HTN (3)Pacemaker/AICD (4)CVA/ Vascular dementia (5)Ischemic cardiomyopathy HFrEF -Continue home dose of Lasix,Jardiance, spironolactone, Entresto -Consider Torsemide 20 mg? HTN -Continue Metoprolol 50 mg daily Pacemaker/AICD - Continue Metoprolol 50 mg daily -Follow with pacer clinic as scheduled CVA/ Vascular dementia -Continue, Plavix and Eliquis -Obtain MRI, awaiting scheduling Ischemic cardiomyopathy/HLD - Continue Metoprolol 50 mg daily - Continue Imdur 30 mg daily - Continue rosuvastatin,Zetia Supervising Physician Co-Signing Physician Notes I have personally performed a history and physical examination on the patient. I have reviewed the advance practitioner's documentation, and I agree with, and take responsibility for the plan of care. 79-year-old male presents with weight gain, orthopnea, and shortness of breath. Recently hospitalized due to cognitive impairment related to vascular dementia. reports approximately 11 pound weight gain since hospital discharge on Saturday. Denies any medication noncompliance or excessive sodium intake. reports significant fluid intake on Saturday of approximately 64 ounces of water due to labile blood pressures. Voices concern regarding ineffectiveness of oral Lasix in the outpatient setting. Patient reports minimal diuresis after taking 20mg PO lasix at home. Treated in the emergency department with 40 mg of intravenous furosemide. Repo rts significant diuresis since admission, however, fluid balance has not been recorded. Shortness of breath improved. Currently able to lie flat for examination. Denies edema, or abdominal bloating. PE: VSS, Gen NAD, AAO x3. Heart: Regular rhythm, normal S1-S2. No murmur. Lungs: Clear bilateral, no rales, rhonchi, wheeze. Extremities: No edema. Impression: 1. Acute on chronic heart failure with reduced ejection fraction -Provoked by excessive fluid intake and ineffectiveness of oral diuretic therapy in setting of chronic kidney disease. 2. Ischemic cardiomyopathy status post biventricular ICD with ineffective pacing (<90%) -Metoprolol titrated to 50 mg daily during recent hospitalization 3. Paroxysmal atrial fibrillation -Previously treated with amiodarone however, discontinued -AV paced without evidence of recurrent atrial fibrillation per most recent device interrogation -Appropriately anticoagulated with Eliquis Plan/recommendations: * Continue IV diuresis with furosemide 20 mg twice daily. * Monitor fluid balance, daily weight, GFR, and electrolytes. * Sodium restriction advised. * Transition to oral torsemide, 20 mg daily at discharge. * Continue other cardiovascular medications as ordered. Tony Bradley DO, [facility] I spent a total of 60 minutes on the date of service in preparation, delivery, and documentation of the care provided to this patient, excluding any time spent in the performance of separately billed services. History of Present Illness Reason for Consultation: Acute on chronic HFrEF Requesting Physician: Cristy Loomis PA-C Attending Physician: Ayaz Swift MD History of Present Illness Pt is a 79 year old gentleman with past medical history notable for HLD, Type 2 DM, Diabetic neuropathy, Diaphragmatic hernia, Asymptomatic carotid artery stenosis, HTN, CKD 3a, Chronic heart failure(HFrEF) CAD, ischemic cardiomyopathy, CABGX2, PAF, PVD, AICD, iron deficiency anemia, and stroke at 30 years old who was recently admitted 06/23-06/25 for trouble mentating, labile blood pressure, trouble with ambulation, sob and orthopnea. CT head with that admission revealed a 2.6 cm focal area of decreased attenuation in the periphery of the right posterior cerebellar hemisphere consistent with encephalomalacia, due to infarct of uncertain chronicity, perhaps took place within the last month given the patient's recent cognitive decline. CTA revealed 90% stenosis of the left carotid. Echocardiogram revealed EF of 30-35%, Inferoposterior wall motion abnormality with scar, and grade 2 diastolic dysfunction. Neurology was consulted and it was thought that this admission could have been a result of a CVA/vascular dementia. At the time pt could not have a MRI of brain due to AICD. Arrangements were made to obtain a MRI as there is a protocol in place to be able to obtain an MRI with this device.It was recommended per neurology for patient to continue Plavix and restart Eliquis. Pt's metoprolol was increased due to PVC load on pacer interrogation and was started on Jardiance and Entresto. Pt was d/c'd and awaiting MRI scheduling. This admission pt complains of labile blood pressures, weight gain of 13lbs, orthopnea, HOYT. states pt has been compliant with all medications and doesn't recall any changes that would cause any of these issues. states she could hear him "gargling" when trying to sleep and that pt had to sleep in the chair as he was orthopneic. She states she hasn't noticed any swelling, but that he doesn't usually present with swelling. Pt denies any cp, palpitations, lightheadedness or dizziness. Allergies Allergy/AdvReac Type Severity Reaction Status Date / Time No Known Allergies Allergy Verified 05/04/24 00:08 Home Medications Medication Instructions Recorded Confirmed Type isosorbide mononitrate 30 mg 30 mg PO QAM #0 tabs 08/12/14 06/29/25 History tablet,extended release 24 hr nitroglycerin 0.4 mg sublingual 0.4 mg sublingual Q5M PRN Chest 08/15/17 06/29/25 History tablet Pain ##0 rosuvastatin 40 mg tablet 40 mg PO QAM 03/30/19 06/29/25 History tamsulosin 0.4 mg capsule 0.4 mg PO BID 03/30/19 06/29/25 History clopidogrel 75 mg tablet 75 mg PO QAM 03/15/21 06/29/25 History montelukast 10 mg tablet 10 mg PO QAM 03/15/21 06/29/25 History ezetimibe 10 mg tablet 10 mg PO QAM 07/29/21 06/29/25 History pregabalin 75 mg capsule 75 mg PO QID 05/10/22 06/29/25 History ascorbic acid (vitamin C) 1,000 mg 1 g PO HS 10/18/23 06/29/25 History tablet (Vitamin C) cyanocobalamin (vitamin B-12) 500 mcg PO HS 10/18/23 06/29/25 History 1,000 mcg tablet (Vitamin B-12) finasteride 5 mg tablet (Proscar) 5 mg PO DAILY 10/18/23 06/29/25 History furosemide 20 mg tablet 20 mg PO QAM 06/23/25 06/29/25 History apixaban 5 mg tablet (Eliquis) 5 mg PO BID #60 tabs 06/25/25 06/29/25 Rx metoprolol succinate 50 mg 50 mg PO QAM #30 tabs 06/25/25 06/29/25 Rx tablet,extended release 24 hr sacubitril 24 mg-valsartan 26 mg 1 tab PO BID #60 tabs 06/25/25 06/29/25 Rx tablet (Entresto) empagliflozin 25 mg tablet 25 mg PO QAM 06/29/25 06/29/25 History (Jardiance) spironolactone 25 mg tablet 25 mg PO QAM 06/29/25 06/29/25 History Patient History Medical History Orthostasis Acute kidney injury superimposed on CKD Acute hypokalemia Elevated troponin Pneumonia Sepsis Presence of combination internal cardiac defibrillator (ICD) and pacemaker 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 CKD (chronic kidney disease), stage III Cardiomyopathy, ischemic CKD (chronic kidney disease) stage 3, GFR 30-59 ml/min Elevated troponin LBBB (left bundle branch block) Atrial fibrillation with rapid ventricular response Stenosis of left internal carotid artery Ischemic cardiomyopathy DVT prophylaxis Paroxysmal A-fib CVA (cerebral vascular accident) GERD (gastroesophageal reflux disease) Diabetes Hypertension Coronary artery disease 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 Diabetes mellitus, type 2 Surgical History History of coronary artery stent placement LAD and RCA 2019 S/P CABG x 2 Family History Mother Stroke Denies family history of Crohn's disease Colorectal cancer Ulcerative colitis Social History Smoking Status: Former smoker Tobacco Type: Cigarettes Second Hand Exposure: No; Do You Dip or Chew Tobacco: No; Tobacco Cessation Education Requested by Patient: No Hx Alcohol Use: Yes Alcohol type: beer Hx Substance Use: No Preferred Language: Kitt[place] Communication Ability: Effective Communication Ability Comment: [phone] Seismic Engineer Required: No Beliefs That Will Affect Care: None marital status: Current Living Situation: Spouse current occupation: Retired Feels Safe at Home: Yes Safety Concerns: Feels Safe At This Time Assistive Devices: Cane, Hearing Aid - Bilateral and Walker Review of Systems Constitutional: + weight gain Respiratory: + dyspnea and + dyspnea on exertion Cardiovascular: + dyspnea, + dyspnea at rest and + ortho pnea Physical Exam Constitutional: well developed, + acute distress, + physical limitations and + overweight Eyes: PERRL Neck: trachea midline, no thyromegaly Respiratory: normal respiratory effort Auscultation: + diminished lung sounds Cardiovascular: RRR, no murmur, no edema Rate/Rhythm: regular rate Chest (Breasts): Chest: + pacemaker Gastrointestinal (Abdomen): Inspection/Auscultation: + abdomen distended and normal bowel sounds Musculoskeletal: no cyanosis or clubbing, extremities motor strength 5/5 Skin: no rashes, warm and dry Neurologic: No new changes from previous CVA residual issues noted. Pt at [facility] has some facial asymmetry. Psychiatric: A+Ox3, euthymic affect Results & Data Vital Signs (Past 12 Hours) Vital Signs Temp Pulse Pulse Pulse Pulse Resp Resp 06/29/25 14:20 36.5 C 54 L 20 06/29/25 13:58 70 20 06/29/25 12:52 70 22 06/29/25 12:40 70 80 20 06/29/25 12:03 67 20 06/29/25 11:52 71 20 06/29/25 11:13 82 20 06/29/25 10:31 06/29/25 10:31 76 20 06/29/25 10:31 06/29/25 09:48 80 06/29/25 09:25 70 16 06/29/25 09:13 36.5 C 48 L 18 Resp BP BP Pulse Ox Pulse Ox Pulse Ox O2 Del Method 06/29/25 14:20 153/91 H 93 Room Air 06/29/25 13:58 94 Room Air 06/29/25 12:52 163/101 H 98 Room Air 06/29/25 12:40 30 H 92 98 Room Air 06/29/25 12:03 162/106 H 99 Room Air 06/29/25 11:52 179/108 H 95 Room Air 06/29/25 11:13 163/106 H 94 Room Air 06/29/25 10:31 97 Room Air 06/29/25 10:31 171/91 H 98 06/29/25 10:31 98 Room Air 06/29/25 09:48 06/29/25 09:25 98 Room Air 06/29/25 09:13 140/78 97 Nasal Cannula Laboratory Results Cardiac Enzymes 06/29/25 Range/Units 09:32 AST 31 (13-39) U/L Troponin I High Sens 11.5 (0-20) pg/ml B-Natriuretic Peptide 474 H (0-100) pg/ml Coagulation 06/29/25 Range/Units 09:32 PT 10.9 (9.0-12.0) Seconds APTT 31 (21-31) Seconds B-Natriuretic Peptide 474 H (0-100) pg/ml CBC 06/29/25 Range/Units 09:32 WBC 4.16 L (4.8-10.8) K/ul RBC 4.95 (4.70-6.10) M/uL Hgb 15.2 (14.0-18.0) g/dl Hct 44.8 (42.0-52.0) % Plt Count 145 (130-400) K/uL Neut # (Auto) 2.68 (1.40-6.50) K/uL Lymph # (Auto) 0.94 L (1.20-3.40) K/uL Mayes # (Auto) 0.39 (0.11-0.59) K/uL Eos # (Auto) 0.08 (0.00-0.50) K/uL Baso # (Auto) 0.06 (0.00-0.20) K/uL Comprehensive Metabolic Panel 06/29/25 Range/Units 09:32 Sodium 141 (136-145) mmol/L Potassium 4.5 (3.5-5.1) mmol/L Chloride 108 H (98-107) mmol/L Carbon Dioxide 27 (21-32) mmol/L BUN 51 H (6-23) mg/dl Creatinine 1.81 H (0.6-1.4) mg/dl Glucose 102 H (70-99(Fasting)) mg/dl Calcium 9.2 (8.6-10.3) mg/dl AST 31 (13-39) U/L ALT 30 (7-52) U/L Alkaline Phosphatase 65 (34-104) U/L Total Protein 7.8 (6.0-8.3) gm/dl Albumin 4.6 (3.4-5.0) gm/dl Intake and Output 06/29/25 06/29/25 06/29/25 06:59 14:59 22:59 Other: Weight 121.3 kg Weight Measurement Method Standing Scale Patient Weight 06/30/25 06:59 Weight 121.3 kg Diagnostic Findings Abdominal US 06/29/25 IMPRESSION: No abdominal ascites is identified. chest x-ray 06/29/25 IMPRESSION: 1. Cardiomegaly and AICD with evidence of congestive failure. 2. No airspace consolidation or large pleural effusion is seen. ECG 06/29/25 AV sequential pacing with frequent and consecutive ventricular ectopy Abnormal ECG When compared with ECG of 23-Jun-2025 16:53, Vent. rate has increased by 11 bpm Confirmed by Steven Hensley ([id number]) on 06/29/2025 11:17:16 AM Echocardiogram 06/24/25 -EF 30-35% -Inferoposterior wall motion abnormality with scar -Grade 2 diastolic dysfunction Medications Administered Current Inpatient Medications Acetaminophen (Acetaminophen 325 Mg Tab) 650 mg PO Q4H PRN PRN Reason: Pain or Fever Stop: 07/29/25 14:16 Apixaban (Apixaban 5 Mg Tablet) 5 mg PO BID [facility] Stop: 07/29/25 20:59 Ascorbic Acid (Ascorbic Acid 500 Mg Tab) 1,000 mg PO HS GITA Stop: 07/29/25 20:59 Clopidogrel Bisulfate (Clopidogrel Bisulfate 75 Mg Tab) 75 mg PO QAM [facility] Stop: 07/30/25 08:59 Cyanocobalamin (Cyanocobalamin (B-12) 500 Mcg Tablet) 500 mcg PO HS [facility] Stop: 07/29/25 20:59 Dextrose (Dextrose 50% 50 Ml Syringe) 25 - 50 ml IV UD PRN; Protocol PRN Reason: Hypoglycemia Protocol Stop: 07/29/25 15:07 Ezetimibe (Ezetimibe 10 Mg Tab) 10 mg PO QAM [facility] Stop: 07/30/25 08:59 Empagliflozin (Empagliflozin 25 Mg Tab) 25 mg PO QAM [facility] Stop: 07/30/25 08:59 Finasteride (Finasteride 5 Mg Tab) 5 mg PO DAILY [facility] Stop: 07/30/25 08:59 Furosemide (Furosemide Inj 20 Mg/2 Ml Vial) 20 mg IV [id number] [facility] Stop: 07/29/25 16:59 Glucagon (Glucagon For Inj 1 Mg Vial) 1 mg SQ UD PRN; Protocol PRN Reason: Hypoglycemia Protocol Stop: 07/29/25 15:07 Glucose (Glucose 40% Gel 15 Gm Tube) 15 - 30 gm PO UD PRN; Protocol PRN Reason: Hypoglycemia Protocol Stop: 07/29/25 15:07 Glucose (Glucose 10 Tab/Tube) 4 - 8 tab PO UD PRN; Protocol PRN Reason: Hypoglycemia Protocol Stop: 07/29/25 15:07 Promethazine HCl (Phenergan) 6.25 mg in 50.25 mls @ 201 mls/hr IV Q6H PRN PRN Reason: Nausea And Vomiting Stop: 07/29/25 14:16 Insulin Aspart (Insulin Aspart Per Unit Charge) 0 units SC ACHS [facility] Stop: 07/29/25 16:29 Isosorbide Mononitrate (Isosorbide Mayes Extended Rel 30 Mg Tabcr) [facility]: 07/30/25 08:59 Magnesium Hydroxide (Magnesium Hydroxide Susp 30 Ml Udc) 30 ml PO Q12H PRN PRN Reason: Constipation Stop: 07/29/25 14:16 Metoprolol Succinate (Metoprolol Succ 50mg Ext Rel Tab) [facility] [place] Stop: 07/30/25 08:59 Miscellaneous (Carbohydrates For Hypoglycemia ) 15 - 30 gm PO UD PRN PRN Reason: Hypoglycemia Protocol Stop: 07/29/25 15:07 Montelukast Sodium (Montelukast Sodium 10 Mg Tablet) [facility] [place] Stop: 07/30/25 08:59 Polyethylene Glycol (Polyethylene (Miralax) 17 Gm Pack) 17 gm PO DAILY PRN PRN Reason: Constipation Stop: 07/29/25 14:16 Pregabalin (Pregabalin 75 Mg Cap) 75 mg PO QID [facility] Stop: 07/29/25 16:59 Rosuvastatin Calcium (Rosuvastatin Calcium 20 Mg Tab) 40 mg PO QAM [facility] Stop: 07/30/25 08:59 Sacubitril/Valsartan (Valsartan/Sacubitril 26/24mg Tab) 1 tab PO BID [facility] Stop: 07/29/25 20:59 Tamsulosin HCl (Tamsulosin Hcl 0.4 Mg Cap) 0.4 mg PO BID [facility] Stop: 07/29/25 20:59 PG Care Time/CCT Total # of Minutes Spent Total Time Spent with Patient: 55 Coding Level of Care Code 02447 IN/OBS CONSULT LVL 5,80M Diagnoses History of CVA (cerebrovascular accident) Z86.73 Ischemic cardiomyopathy I25.5 Acute on chronic heart failure with reduced ejection fraction (HFrEF, <= 40%) I50.23 HTN (hypertension) I10
--- NOTE | 2025-06-29 15:51 | Ultrasound Report ---
ULTRASOUND ASCITES CHECK CLINICAL HISTORY: Ascites check. COMPARISON STUDY: Abdominal CT dated 09/11/2014. FINDINGS: Real-time grayscale sonography of all 4 quadrants of the abdomen was performed to assess fo r abdominal ascites. No abdominal ascites is identified. IMPRESSION: No abdominal ascites is identified. Electronically signed by: Linden Thacker M.D. 06/29/2025 3:49 PM
[2025-06-29] MEDS: FUROSEMIDE INJ 20 MG/2 ML VIAL IV SCH (16:23)
[2025-06-29] MEDS: PREGABALIN 75 MG CAP PO SCH (16:30)
[2025-06-29] MEDS: INSULIN ASPART PER UNIT CHARGE SC SCH (16:31)
[2025-06-29] MEDS ORDERED: ONDANSETRON INJ 2 MG/ML 2 ML VIAL IV PRN (20:47)
[2025-06-29] MEDS ORDERED: ASCORBIC ACID 500 MG TAB PO SCH (21:00)
[2025-06-29] MEDS: TAMSULOSIN HCL 0.4 MG CAP PO SCH (21:50)
[2025-06-29] MEDS: APIXABAN 5 MG TABLET PO SCH (21:50)
[2025-06-29] MEDS: VALSARTAN/SACUBITRIL 26/24MG TAB PO SCH (21:50)
[2025-06-29] MEDS: CYANOCOBALAMIN (B-12) 500 MCG TABLET PO SCH (21:52)
[2025-06-30 04:28] LABS: Hematocrit (blood only) 42.3 % (42.0-52.0); Hemoglobin 14.4 g/dl (14.0-18.0); Immature Granulocytes # (auto) 0.01 K/uL (0.01-0.20); Immature Granulocytes % (auto) 0.2 %; Mean Corpuscular Hemoglobin 30.2 pg (25.0-34.0); Mean Corpuscular Volume 88.7 fL (80.0-100.0); Platelet Count 136 K/uL (130-400); RDW Standard Deviation 49.0 fL (36.4-46.3); Red Blood Count 4.77 M/uL (4.70-6.10); White Blood Count 5.54 K/ul (4.8-10.8)
[2025-06-30 04:48] LABS: Anion Gap 10.0 (3-11); Blood Urea Nitrogen 56.0 mg/dl (6-23); Calcium 8.9 mg/dl (8.6-10.3); Carbon Dioxide 23.0 mmol/L (21-32); Chloride 107.0 mmol/L (98-107); Creatinine Clr Calc Pharmacy 42.8 ml/min; Glucose 109.0 mg/dl (70-99(Fasting)); Magnesium 2.5 mg/dl (1.7-2.4); Potassium 4.5 mmol/L (3.5-5.1); Sodium 140.0 mmol/L (136-145)
[2025-06-30 08:02] LABS: Hemoglobin A1C 6.9 % (4.5-5.6)
[2025-06-30] MEDS: CLOPIDOGREL BISULFATE 75 MG TAB PO SCH (08:07)
[2025-06-30] MEDS: EZETIMIBE 10 MG TAB PO SCH (08:08)
[2025-06-30] MEDS: FINASTERIDE 5 MG TAB PO SCH (08:08)
[2025-06-30] MEDS: EMPAGLIFLOZIN 25 MG TAB PO SCH (08:08)
[2025-06-30] MEDS: ISOSORBIDE MONO EXTENDED REL 30 MG TABCR PO SCH (08:09)
[2025-06-30] MEDS: MONTELUKAST SODIUM 10 MG TABLET PO SCH (08:09)
[2025-06-30] MEDS: METOPROLOL SUCC 50MG EXT REL TAB PO SCH (08:09)
[2025-06-30] MEDS: ROSUVASTATIN CALCIUM 20 MG TAB PO SCH (08:10)
[2025-06-30] MEDS ORDERED: FUROSEMIDE INJ 20 MG/2 ML VIAL IV SCH (09:00)
--- NOTE | 2025-06-30 10:13 | Cardiology Progress Note ---
Date of Service June 30, 2025 Assessment & Plan (1) History of CVA (cerebrovascular accident): (2) Ischemic cardiomyopathy: (3) Acute on chronic heart failure with reduced ejection fraction (HFrEF, <= 40%): (4) HTN (hypertension): [place] [address] Cardiology Consultation Signed Patient: KEYANA CHAVIS Admit Date: 06/29/25 MR#: [id number] Att Phy: Ayaz Swift MD Acct ID: [id number] Kristy Phy: Chava Bell MD Date: 1945 Fam Phy: Age: 79 Location: 2N Sex: M Room/Bed: N284-2 Legal Sex: M cc: ~ *NOTICE TO RECEIVING REPUBLICAN/AGENCY This information is strictly Confidential and protected under [place] law. [place] law prohibits you from making any further disclosure of this information unless further disclosure is expressly permitted by the written consent of the person to whom it pertains or is authorized by law. A general authorization for the release of medical or other information is not sufficient for this purpose. Hospital accepts no responsibility if the information is made available to any other person, INCLUDING THE PATIENT. Date of Consultation June 29, 2025 Assessment & Plan (1) History of CVA (cerebrovascular accident): (2) Ischemic cardiomyopathy: (3) Acute on chronic heart failure with reduced ejection fraction (HFrEF, <= 40%): (4) HTN (hypertension): (5)Pacemaker/ AICD Plan (1)HFrEF (2)HTN (3)Pacemaker/AICD (4)CVA/ Vascular dementia (5)Ischemic cardiomyopathy HFrEF -Continue home dose of Lasix,Jardiance, spironolactone, Entresto -Stop Lasix -Start Torsemide 20 mg daily -Educated pt and on 2 gram sodium restriction and 1800 ml fluid restriction. -Educated pt to balance out fluids throughout day to maintain a consistent bp HTN -Continue Metoprolol 50 mg daily -BP this am 109/72 Pacemaker/AICD -Continue Metoprolol 50 mg daily -Follow with pacer clinic as scheduled -Paced on tele with PVC's and PAT for 1 min at 0804 this am CVA/ Vascular dementia -Continue, Plavix and Eliquis -Obtain MRI, awaiting scheduling -There is some noted worsening of garbled speech this am from his normal baseline and pt seems to struggle more with word finding Ischemic cardiomyopathy/HLD - Continue Metoprolol 50 mg daily - Continue Imdur 30 mg daily - Continue rosuvastatin,Zetia I spent a total of 30 minutes on the date of service in preparation, delivery, and documentation of the care provided to this patient, excluding any time spent in the performance of separately billed services. Admission and Anticipated Discharge Date Admission Date: June 29, 2025 Supervising Physician Co-Signing Physician Notes Attending attestation: Case reviewed with the advanced practitioner. I have personally performed a history and physical examination on the patient. I have reviewed the advanced practitioner's documentation on the date of service referenced in note, and I agree with, and take responsibility for the plan of care. Subjective: At the time my assessment, patient also being evaluated as a "stroke alert" due to decreased mentation, difficulty grasping, with noted difficulty with his speech earlier today. Upon my arrival, a repeat blood pressure revealed a systolic blood pressure of 106 mmHg. Telemetry reveals sinus rhythm AV sequential pacing in the 70s. Patient did have a run of supraventricular tachycardia this morning at 8:04 AM and was self terminated. Exam: Cardiovascular regular rhythm, no murmurs, trace edema Neurologic: Patient's mental status improved during my assessment, able to name items, no focal deficits. Data: Creatinine this morning trended up to 2.02 mg/dL EKG performed 06/29/2025 revealed AV sequential pacing with frequent PVCs similar to previous Impression/ Plan: 1) Strokelike symptoms 2)Recent concerns of stroke/vascular dementia and hospital stay last week 3)Acute decompensation of heart failure with reduced ejection fraction due to ischemic cardiomyopathy 4)Frequent PVCs Patient with history of reduced flow in the bilateral middle cerebral arteries with collateralization suggestive of high grade stenosis / occlusion as per outpatient records. Previously , some degree of hypertension was permitted in effort to allow for better cerebral perfusion. Due to concerns of new ischemic stroke on CT last week and concerns of symptoms of progressive vascular dementia, Eliquis and clopidogrel started last week and due to cardiomyopathy Medications were intensified with noted high dose SGLT2 inhibitor, new treatment with Entresto, and metoprolol dose was uptitrated due to frequent episodes of PVCs, nonsustained VT. I question if the patient's current neurologic symptoms are related to decreased cerebral perfusion in the setting of medications and diuretic treatment. I have held his Entresto moving forward. Plan to hold diuretic therapy with creatinine trending up. Recommend stat noncontrast CT of the brain given strokelike symptoms especially to rule out hemorrhagic stroke given Eliquis/clopidogrel administration. MRI of the brain not performed last week due to concerns about compatibility of his [employer]tr[employer] pacemaker/AICD. An MRI was to be performed as an outpatient within the [facility]. At present, he is a poor candidate for gadolinium given his acute kidney injury. Will reassess feasibility of performing MRI at this institution during this hospital stay. Case discussed with Dr Mckenzie of the hosptalist service for the purpose of coordination of care. I spent a total of 30 minutes coordinating, documenting, and providing care for this patient excluding time spent in the performance of separately billed services or time spent by another provider. Urbano Gann, DO Subjective Patient seen today for follow-up from an admission yesterday with worsening shortness of breath, fatigue, orthopnea. Patient's is concerned this morning as patient is mumbling his speech and struggling to find some words that is not the norm for him. She states that he seems a little off today more so than usual. Patient states he does not feel any different but just that his knows what she is talking about. Patient denies chest pain, palpitations, states that his shortness of breath has improved, states he does get slightly dizzy if he stands up too quick. Patient's had questions in regards to his grade of congestive heart failure and when we would get the MRI. She is concerned that from the previous admission he has had a stroke and that it is worsening as he seems to be getting worse. Patient's states that he has trouble with his blood pressure as he is high at times but also low and correlates this with his intake of fluid and salt. She states that he will drink a pot of coffee as well as normal consumption of water and he fluids throughout the day. Then states that sometimes he will not drink enough and notices that his blood pressure is too low as well. Review of Systems Respiratory: + dyspnea on exertion Cardiovascular: + dyspnea and + orthopnea Neurologic: + unsteadiness Physical Exam Constitutional: + overweight Eyes: PERRL ENMT: Right sided facial droop noted at [facility], but pt's states that it has worsened too Neck: trachea midline, no thyromegaly Respiratory: Auscultation: lungs clear to auscultation bilaterally and + diminished lung sounds Cardiovascular: RRR, no murmur, no edema Rate/Rhythm: regular rate and regular rhythm Vessels: + JVD Chest (Breasts): Chest: + pacemaker Gastrointestinal (Abdomen): normal bowel sounds, soft, nontender, no hepatosplenomegaly Musculoskeletal: Right sided mild weakness noted. This is his baseline from a previous stroke Skin: no rashes, warm and dry Neurologic: normal touch/pain/proprioception and moves all extremities Cranial Nerves: PERRL, normal accommodation and tongue midline Coordination: + abnormal [id number]-[id number] test and + abnormal axuy-xi-bhxs test Right facial droop that is normal, but states it may be a little worse Psychiatric: A+Ox3, euthymic affect Garbled, more so than usual per Results & Data Vital Signs (Past 12 Hours) Vital Signs Temp Pulse Pulse Resp BP BP Pulse Ox 06/30/25 09:49 68 06/30/25 08:06 36.5 C 65 18 109/72 97 06/30/25 07:23 06/30/25 02:24 36.7 C 72 14 108/65 94 06/29/25 23:12 36.5 C 62 14 109/69 93 O2 Del Method 06/30/25 09:49 06/30/25 08:06 Room Air 06/30/25 07:23 Room Air 06/30/25 02:24 Room Air 06/29/25 23:12 Room Air Laboratory Results CBC 06/30/25 Range/Units 04:01 WBC 5.54 (4.8-10.8) K/ul RBC 4.77 (4.70-6.10) M/uL Hgb 14.4 (14.0-18.0) g/dl Hct 42.3 (42.0-52.0) % Plt Count 136 (130-400) K/uL Neut # (Auto) 3.28 (1.40-6.50) K/uL Lymph # (Auto) 1.50 (1.20-3.40) K/uL [place] # (Auto) 0.60 H (0.11-0.59) K/uL Eos # (Auto) 0.10 (0.00-0.50) K/uL Baso # (Auto) 0.05 (0.00-0.20) K/uL Comprehensive Metabolic Panel 06/30/25 Range/Units 04:01 Sodium 140 (136-145) mmol/L Potassium 4.5 (3.5-5.1) mmol/L Chloride 107 (98-107) mmol/L Carbon Dioxide 23 (21-32) mmol/L BUN 56 H (6-23) mg/dl Creatinine 2.02 H (0.6-1.4) mg/dl Glucose 109 H (70-99(Fasting)) mg/dl Calcium 8.9 (8.6-10.3) mg/dl Intake and Output 06/29/25 06/30/25 06/30/25 22:59 06:59 14:59 Intake Total 1050 / 1050 Output Total 400 / 400 Balance 650 / 650 Intake: Oral 1050 / 1050 Output: Urine 400 / 400 Other: Weight 120.3 kg Weight Measurement Method Standing Scale Medications Administered Current Inpatient Medications Acetaminophen (Acetaminophen 325 Mg Tab) 650 mg PO Q4H PRN PRN Reason: Pain or Fever Stop: 07/29/25 14:16 Apixaban (Apixaban 5 Mg Tablet) 5 mg PO BID [facility] Stop: 07/29/25 20:59 Last Admin: 06/30/25 08:07 Dose: 5 mg Clopidogrel Bisulfate (Clopidogrel Bisulfate 75 Mg Tab) 75 mg PO QAM [facility] Stop: 07/30/25 08:59 Last Admin: 06/30/25 08:07 Dose: 75 mg Cyanocobalamin (Cyanocobalamin (B-12) 500 Mcg Tablet) 500 mcg PO HS [facility] Stop: 07/29/25 20:59 Last Admin: 06/29/25 21:52 Dose: 500 mcg Dextrose (Dextrose 50% 50 Ml Syringe) 25 - 50 ml IV UD PRN; Protocol PRN Reason: Hypoglycemia Protocol Stop: 07/29/25 15:07 Ezetimibe (Ezetimibe 10 Mg Tab) 10 mg PO QAM [facility] Stop: 07/30/25 08:59 Last Admin: 06/30/25 08:08 Dose: 10 mg Empagliflozin (Empagliflozin 25 Mg Tab) 25 mg PO QAM [facility] Stop: 07/30/25 08:59 Last Admin: 06/30/25 08:08 Dose: 25 mg Finasteride (Finasteride 5 Mg Tab) 5 mg PO DAILY [facility] Stop: 07/30/25 08:59 Last Admin: 06/30/25 08:08 Dose: 5 mg Furosemide (Furosemide Inj 20 Mg/2 Ml Vial) 20 mg IV [id number] [facility] Stop: 07/29/25 16:59 Last Admin: 06/30/25 08:09 Dose: 20 mg Glucagon (Glucagon For Inj 1 Mg Vial) 1 mg SQ UD PRN; Protocol PRN Reason: Hypoglycemia Protocol Stop: 07/29/25 15:07 Glucose (Glucose 40% Gel 15 Gm Tube) 15 - 30 gm PO UD PRN; Protocol PRN Reason: Hypoglycemia Protocol Stop: 07/29/25 15:07 Glucose (Glucose 10 Tab/Tube) 4 - 8 tab PO UD PRN; Protocol PRN Reason: Hypoglycemia Protocol Stop: 07/29/25 15:07 Insulin Aspart (Insulin Aspart Per Unit Charge) 0 units SC [facility] Stop: 07/29/25 16:29 Last Admin: 06/30/25 09:26 Dose: 6 units Isosorbide Mononitrate (Isosorbide [place] Extended Rel 30 Mg Tabcr) 30 mg PO QAM [facility] Stop: 07/30/25 08:59 Last Admin: 06/30/25 08:09 Dose: 30 mg Metoprolol Succinate (Metoprolol Succ 50mg Ext Rel Tab) 50 mg PO QAM [facility] Stop: 07/30/25 08:59 Last Admin: 06/30/25 08:09 Dose: 50 mg Miscellaneous (Carbohydrates For Hypoglycemia ) 15 - 30 gm PO UD PRN PRN Reason: Hypoglycemia Protocol Stop: 07/29/25 15:07 Montelukast Sodium (Montelukast Sodium 10 Mg Tablet) 10 mg PO QAM [facility] Stop: 07/30/25 08:59 Last Admin: 06/30/25 08:09 Dose: 10 mg Ondansetron HCl (Ondansetron Inj 2 Mg/Ml 2 Ml Vial) 4 mg IV Q6H PRN PRN Reason: Nausea And Vomiting Stop: 07/29/25 20:46 Polyethylene Glycol (Polyethylene (Miralax) 17 Gm Pack) 17 gm PO DAILY PRN PRN Reason: Constipation Stop: 07/29/25 14:16 Pregabalin (Pregabalin 75 Mg Cap) 75 mg PO QID [facility] Stop: 07/29/25 16:59 Last Admin: 06/30/25 08:17 Dose: 75 mg Rosuvastatin Calcium (Rosuvastatin Calcium 20 Mg Tab) 40 mg PO QAM [facility] Stop: 07/30/25 08:59 Last Admin: 06/30/25 08:10 Dose: 40 mg Sacubitril/Valsartan (Valsartan/Sacubitril 26/24mg Tab) 1 tab PO BID [facility] Stop: 07/29/25 20:59 Last Admin: 06/30/25 08:07 Dose: 1 tab Tamsulosin HCl (Tamsulosin Hcl 0.4 Mg Cap) 0.4 mg PO BID [facility] Stop: 07/29/25 20:59 Last Admin: 06/30/25 08:10 Dose: 0.4 mg PG Care Time/CCT Total # of Minutes Spent Total Time Spent: 55 Coding Level of Care Code 26073 SUB INP/OBS CARE 3/50MIN History Comprehensive Exam Comprehensive Diagnoses History of CVA (cerebrovascular accident) Z86.73 Ischemic cardiomyopathy I25.5 Acute on chronic heart failure with reduced ejection fraction (HFrEF, <= 40%) I50.23 HTN (hypertension) I10 Time Spent (min) 60 Comment 30 minutes were spent by GÓMEZ Duncan [address] Gann
--- NOTE | 2025-06-30 11:25 | Communication Note ---
Date of Service: June 30, 2025 Patient was stroke alert early in the morning. Patient's was at bedside when she was trying to have the patient get out of the bed to go to the bathr oom. Patient sat at the edge of the bed and he started feeling lightheaded and then was not responding appropriately to patient's , according to patient's patient was mumbling, shaking, had bilateral hand tremors, and had eyes rolling backwards. Nursing help came immediately, until then patient was sitting up in chair for about 4 minutes. Per nursing, patient did not have any lower extremity weakness, they were able to transfer him to bed easily, about 1 minutes into lying in bed he slowly came back to his senses. His vitals were 106/63, 96% on room air, 64 bpm. Fingerstick glucose was 188. Patient was immediately evaluated at bedside. No slurring of speech was noted, no facial deviation or tongue deviation. Bilateral upper and lower extremities strength 5/5. The patient denied any numbness or tingling or any weakness. Patient remembers only getting lightheaded when he sat up at the edge of the bed but does not remember any other events. Patient's upset at bedside, 2 sons at bedside Lico and Chris who were all updated on plan of care in detail. Because the patient is on Eliquis and Plavix, we got CT head immediately which came back negative for bleed per my interpretation. And then I spoke with telestroke over the phone, we discussed patient's clinical status and recent ischemic stroke findings. He feels that this is Orthostatic syncope rather than stroke and no need for urgent MRI at the moment. Orthostatic vitals also came back positive. Case was discussed with cardiology, patient put on gentle IV fluid for now. Went back to patient's room again and updated about the radiologist interpretation of CT scan finding. Patient back to his baseline with no neurological signs and symptoms at the completion of my exam. Neurology consult placed. family felt satisfied with updates and were agreeable to plan of care. Total critical care time spent: 40 minutes.
--- NOTE | 2025-06-30 11:33 | CT Scan Report ---
CT head/brain wo con CLINICAL HISTORY: 79 years-old Male with AMS. Acutely altered mental status TECHNIQUE: Multiple axial CT images of the head were obtained without contrast. A dose lowering tech nique was utilized adhering to the principles of ALARA. CT DOSE: 873.7 mGy.cm COMPARISON: Head CT 06/23/2025, brain MRI 05/11/2022 FINDINGS: No acute intracranial hemorrhage, midline shift, intracranial mass, hydrocephalus, territorial ischem ia or abnormal extra-axial collection. Scattered areas of encephalomalacia related to chronic infarct s in the bilateral cerebral hemispheres an right cerebellum are redemonstrated. Involutional changes with chronic microvascular ischemic disease. Prior bilateral lens repair. The calvarium is intact. T he paranasal sinuses, mastoid air cells, and middle ear cavities are clear. IMPRESSION: No acute intracranial abnormality. ACT 112: Negative or not required by law. The above report was generated using voice recognition software. It may contain grammatical, syntax o r spelling errors. Electronically signed by: Don Dennis M.D. 06/30/2025 11:32 AM
[2025-06-30] MEDS: SODIUM CHLORIDE 0.9% 500 ML IV SCH (12:05)
--- NOTE | 2025-06-30 13:45 | Hospitalist Progress Note ---
Date of Service June 30, 2025 Assessment & Plan (1) Acute on chronic heart failure with reduced ejection fraction (HFrEF, <= 40%): (2) Ischemic cardiomyopathy: (3) Vascular dementia: (4) History of CVA (cerebrovascular accident): Plan Patient is a 79-year-old male with PMHx significant for CAD s/p CABG x 2 with a FOLEY to the LAD and vein graft to the OM with follow-up STEMI and collapse of the vein graft [PCI to the LAD and RCA in March 2019 revealing a patent FOLEY], history of nonsustained ventricular tachycardia, ischemic cardiomyopathy [EF = 30-35% - May 2025], HFrEF s/p BIV AICD in July 2021, asymptomatic bilateral carotid artery stenosis, history of CVA at age 30 of unclear etiology with residual R-sided facial droop and R hand weakness/sensory deficit, PAD with failed PTCA of the arteries of his hip under questionable circumstances at an outside facility, PAF s/p PABLO/DCCV in February 2021, DMII, no flow in bilateral middle cerebral arteries with collateralization suggestive of chronic high-grade stenosis and/or occlusion, intermittent LBBB, labile HTN [with prior recommendations from neurology to keep BP on higher side to improve cerebral blood flow], vascular dementia, CKD stage IIIa, postgastric surgery syndrome and EDGAR who presented to the ED from home with complaints of HOYT, orthopnea and weight gain of 11lb since being discharged from our service on 06/25/25. Patient was admitted from 06/23/25-06/25/25 with acute on chronic HFrEF, ambulatory dysfunction in the setting of progressive vascular dementia vs possible undiagnosed CVA within the past month. Following adjustments made to his medication list: metoprolol succinate increased to 50mg daily [re: therapeutic cardiac resynchronization pacing less than 90% of the time likely in part due to frequent PVCs on recent device check], Aldactone increased to 25mg daily, started on Entresto BID, started on Jardiance, restarted on Eliquis [unclear reasoning for stopping this in the first place]. TTE, 06/24/25: EF 30-35%, LV wall thickness mildly increased in non-infarct segments, mildly dilated LV, large inferoposterior wall motion abnormality with scar, grade II DD consistent with elevated LA pressure, mild-mod MR, trace TR. #Acute on chronic HFrEF #Ischemic cardiomyopathy #History of NSVT s/p BIV AICD in July 2021 #Chronic LBBB #CAD s/p CABG x 2 with a FOLEY to the LAD and vein graft to the OM with follow-up STEMI and collapse of the vein graft, PCI to the LAD and RCA in March 2019 revealing a patent FOLEY HS-troponin x 1 neg, BNP 474 Wt at presentation 126.3kg; wt previously 120.2kg on 06/25/25 = 6.1kg wt gain CXR: evidence of congestive failure, no large pleural effusion Home meds: Lasix 20mg, Aldactone 25mg Cardio on board: complex due to orthostatic syncope - meds are held due to low BP, getting fluid at the moment, appreciate cardio help w/ GDMT optimization. Strict I&Os, daily wts (standing if able), tele monitoring Continue Plavix, statin, Zetia #CKD stage IIIa Cr 1.81 at presentation, previously Cr 1.63 on 06/25/25 Difficult to determine baseline Cr given recent med changes, lapses in OP monitoring Doubt MCKENZIE, continue to monitor Cr uptrending today. #Vascular dementia --> progressive memory deficits x past 1-2 months #Recent functional decline/ambulatory dysfunction with shuffling gait Evaluated by neuro last admission: suspect pt may have experienced a stroke over the past month -CT head noted area of encephalomalacia/edema peripherally in right cerebellar hemisphere consistent with area of ischemic infarction of uncertain chronicity -MRI brain could not be obtained at this time as he has a [employer]tr[employer] biventricular pacemaker/AICD with left bundle lead which was placed in 2021 and having the left bundle lead plugged into the left ventricular port of the device is considered off label and therefore MRI brain cannot be performed at [facility] due to current radiology policy -Need to ensure pt is arranged for OP MRI brain study - will need to be completed at [facility] -Need to ensure OP neuro f/u in 4-6wks Had stroke alert in AM of 06/30, see communication note, likely orthostatic syncope contributory. Telestroke evaled, formal neuro consult pending. slow transition during change in position, compression stocking. Educated pt and his family the need for slow transition during change in position. #Bilateral carotid artery stenosis CTA head and neck on 06/24/25 showed 90% stenosis of proximal left ICA due to extensive plaque, 40% stenosis of proximal right ICA, mod to severe stenosis of intracranial left Vertebral artery and moderate stenosis of intracranial right vertebral artery, no significant flow seen in proximal middle cerebral arteries bilaterally -Need to arrange OP vascular surgery eval Continue Plavix, statin, Zetia #PAF s/p PABLO/DCCV in February 2021: Continue BB, Eliquis #DMII: Hgb A1c 6.7% as of 02/2025, 6.9 this admisison. Previously on metformin --> stopped last admission 12/27 starting Jardiance. Continue Jardiance. SSI pro tocol while inpt, follow BSG checks ACHS DVT Prophylaxis: Eliquis Disposition: pt/ot. cm to assist. Admission and Anticipated Discharge Date Admission Date: June 29, 2025 Subjective Patient was seen and examined at bedside. During morning examination, patient was lying in bed, on room air, NAD, resting comfortably. No neurological signs and symptoms. Patient reports eating okay/moving bowels okay/no chest pain or shortness of breath now. Patient was a stroke alert later in the morning, see communication note. Physical Exam Physical Exam: Constitutional: well developed and + obese; not in d istress Eyes: no conjunctival ab normality ENMT: Ears: no hearing i mpairment and no e xternal ear abnorm ality Mouth: oral mucous membranes not dry (chronic R -sided facial droo p s/p CVA at age [age] - unchanged) Neck: trachea midline, n o thyromegaly Respiratory: normal respiratory effort and able t o speak in complet e sentences; no re spiratory distress and no cough Aus cultation: + crack les x bb; no wheez es Cardiovascular: Rate/Rhythm: regul ar rate and regula r rhythm Heart So unds: no murmur E xtremities: no ped al edema Gastrointestinal ( Abdomen): Inspection/Auscult ation: abdomen nor mal to inspection and normal bowel s ounds; abdomen not distended Percus xin/Palpation: ab domen soft; abdome n nontender Musculoskeletal: Extremities: extre mities normal to i nspection and stre ngth 5/5 throughou t Skin: no rashes, warm an d dry Neurologic: CN's II-XI intact bilaterally (gross ly - not formally tested) Psychiatric: Orientation: alert and oriented x 3 Results & Data Results & Data Vital Signs (Past 12 Hours) Vital Signs Temp Pulse Pulse Pulse Resp BP BP 06/30/25 12:22 62 88/46 L 06/30/25 11:59 64 58/32 L 06/30/25 11:43 66 76/44 L 06/30/25 11:38 64 66/46 L 06/30/25 09:49 68 06/30/25 08:06 36.5 C 65 18 109/72 06/30/25 07:23 06/30/25 02:24 36.7 C 72 14 108/65 Pulse Ox O2 Del Method 06/30/25 12:22 06/30/25 11:59 06/30/25 11:43 06/30/25 11:38 06/30/25 09:49 06/30/25 08:06 97 Room Air 06/30/25 07:23 Room Air 06/30/25 02:24 94 Room Air (3) Vascular dementia Dementia severity: unspecified severity Dementia behavioral or psychological symptom: unspecified whether behavioral, psychotic, or mood disturbance or anxiety Qualified Code(s): F01.50 - Vascular dementia, unspecified severity, without behavioral disturbance, psychotic disturbance, mood disturbance, and anxiety
--- NOTE | 2025-06-30 17:14 | XRay Report ---
EXAM: Portable AP chest radiograph TECHNIQUE: AP portable radiograph of the chest was obtained. INDICATION: Shortness of breath Comparison: Chest radiograph June 23, 2025. FINDINGS: LINES and TUBES: Left-sided cardiac ICD again seen with leads projecting over the right atrium and the right ventricle of the heart. CARDIOVASCULAR: Cardiac silhouette is stably enlarged in size with redemonstrated post-CABG changes. LUNGS/PLEURA: No focal consolidation identified. Mild interstitial pulmonary edema is similar to the previous. Small pleural fluids are suggested. No discernible pneumothorax. OSSEOUS/OTHER: No displaced acute osseous process identified. Median sternotomy wires, several of which are fractured. IMPRESSION: Similar congestive changes of the cardiovascular system compared to the previous. Electronically signed by Bryce Curran 06-30-2025 5:14 PM
--- NOTE | 2025-06-30 17:51 | Neurology Consultation ---
Date of Consultation June 30, 2025 Assessment & Plan (1) Vascular dementia: Continue with risk factor modification, continue with Eliquis and Plavix. Plan No need for transfer at this point Recommend referral to neuroendovascular surgery to address his left ICA stenosis. Telehealth Consultation Telehealth Information Telehealth Information: I performed this visit using a real-time telehealth connection between my location and the patients location ([facility]). After connecting through interactive tele-video, patient was identified by name and date of and/or wristband check.Patient (or authorized healthcare patient representative) was informed that this was a telemedicine visit and it was being conducted confidentially over secure lines. My office door was closed and no one else was present in the room with me.Patient (or authorized healthcare patient representative) provided consent to proceed with the visit, expressed an understanding of privacy and security of the telemedicine visit, and gave permission to have a hospital patient representative in the room in order to assist with the visit and to conduct portions of the visit, as needed. I informed the patient (or authorized healthcare patient representative) that I reviewed their record and presented the opportunity for them to ask any questions regarding the visit today. The patient agreed to participate. History of Present Illness Reason for Consultation: Vascular dementia, stroke Requesting Physician: Yandel Mckenzie Attending Physician: Ayaz Swift MD History of Present Illness Mr Becerra is a 79 Y.O male patient with a PMH of multiple strokes, recent subacute infarct. 90% left ICA stenosis per CTA done recently. The patient has been admitted to the hospital with acute on chronic CHF exacerbation ejection fraction 30%. Neurology was consulted for further evaluation the patient is already been started on Eliquis and Plavix. He suffers from cognitive deficits in addition to ambulatory dysfunction and deconditioning. Neurology was to confirm the need for an MRI. The patient did have CT scan of the head done earlier today 24 hours after his last CTA yesterday that did not show any acute infarcts. Allergies Allergy/AdvReac Type Severity Reaction Status Date / Time No Known Allergies Allergy Verified 05/04/24 00:08 Home Medications Medication Instructions Recorded Confirmed Type isosorbide mononitrate 30 mg 30 mg PO QAM #0 tabs 08/12/14 06/29/25 History tablet,extended release 24 hr nitroglycerin 0.4 mg sublingual 0.4 mg sublingual Q5M PRN Chest 08/15/17 06/29/25 History tablet Pain ##0 rosuvastatin 40 mg tablet 40 mg PO QAM 03/30/19 06/29/25 History tamsulosin 0.4 mg capsule 0.4 mg PO BID 03/30/19 06/29/25 History clopidogrel 75 mg tablet 75 mg PO QAM 03/15/21 06/29/25 History montelukast 10 mg tablet 10 mg PO QAM 03/15/21 06/29/25 History ezetimibe 10 mg tablet 10 mg PO QAM 07/29/21 06/29/25 History pregabalin 75 mg capsule 75 mg PO QID 05/10/22 06/29/25 History ascorbic acid (vitamin C) 1,000 mg 1 g PO HS 10/18/23 06/29/25 History tablet (Vitamin C) cyanocobalamin (vitamin B-12) 500 mcg PO HS 10/18/23 06/29/25 History 1,000 mcg tablet (Vitamin B-12) finasteride 5 mg tablet (Proscar) 5 mg PO DAILY 10/18/23 06/29/25 History furosemide 20 mg tablet 20 mg PO QAM 06/23/25 06/29/25 History apixaban 5 mg tablet (Eliquis) 5 mg PO BID #60 tabs 06/25/25 06/29/25 Rx metoprolol succinate 50 mg 50 mg PO QAM #30 tabs 06/25/25 06/29/25 Rx tablet,extended release 24 hr sacubitril 24 mg-valsartan 26 mg 1 tab PO BID #60 tabs 06/25/25 06/29/25 Rx tablet (Entresto) empagliflozin 25 mg tablet 25 mg PO QAM 06/29/25 06/29/25 History (Jardiance) spironolactone 25 mg tablet 25 mg PO QAM 06/29/25 06/29/25 History Patient History Medical History Orthostasis Acute kidney injury superimposed on CKD Acute hypokalemia Elevated troponin Pneumonia Sepsis Presence of combination internal cardiac defibrillator (ICD) and pacemaker 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 CKD (chronic kidney disease), stage III Cardiomyopathy, ischemic CKD (chronic kidney disease) stage 3, GFR 30-59 ml/min Elevated troponin LBBB (left bundle branch block) Atrial fibrillation with rapid ventricular response Stenosis of left internal carotid artery Ischemic cardiomyopathy DVT prophylaxis Paroxysmal A-fib CVA (cerebral vascular accident) GERD (gastroesophageal reflux disease) Diabetes Hypertension Coronary artery disease 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 Diabetes mellitus, type 2 Surgical History History of coronary artery stent placement LAD and RCA 2019 S/P CABG x 2 Family History Mother Stroke Denies family history of Crohn's disease Colorectal cancer Ulcerative colitis Social History Smoking Status: Former smoker Tobacco Type: Cigarettes Second Hand Exposure: No; Do You Dip or Chew Tobacco: No; Tobacco Cessation Education Requested by Patient: No Hx Alcohol Use: Yes Alcohol type: beer Hx Substance Use: No Preferred Language: Comoran Communication Ability: Effective Communication Ability Comment: [phone] Machine Stemmer Required: No Beliefs That Will Affect Care: None marital status: Current Living Situation: Spouse current occupation: Retired Feels Safe at Home: Yes Safety Concerns: Feels Safe At This Time Assistive Devices: None Review of Systems CHF exacerbation, ambulatory dysfunction, generalized weakness Physical Exam General Constitutional: Appearance normally developed, obese Head and face: normocephalic and atraumatic Eyes: no ptosis, no anisocoria, and no dysconjugate gaze Respiratory: normal effort Cardiovascular: regular rhythm and regular rate Abdomen: non distended Skin: no rashes, lesions, or ulcers noted Psychiatric: normal judgement and insight, normal mood, and normal affect NEUROLOGIC EXAMINATION: Mental Status:alert, oriented to place and person , not to time Cranial Nerves: CN 2 - no visual defect on confrontation and pupils round, equal, reactive to light CN 3, 4, 6 - extra-ocular movements intact and no nystagmus CN 5 - facial sensation intact CN 7 - no facial asymmetry CN 8 - intact hearing CN 9, 10 - palate symmetric, normal gag CN 11 - good shoulder shrug CN 12 - tongue midline MOTOR: Strength was at least antigravity throughout, Pronator drift was absent and There were no abnormal movements SENSATION: intact and symmetric to pinprick, light touch, vibration and joint position GAIT: deferred COORDINATION: no ataxia with finger to nose REFLEXES: cannot assess over telemedicine Results & Data Vital Signs (Past 12 Hours) Vital Signs Temp Pulse Pulse Pulse Resp BP BP 06/30/25 17:13 68 06/30/25 12:22 62 88/46 L 06/30/25 11:59 64 58/32 L 06/30/25 11:43 66 76/44 L 06/30/25 11:38 64 66/46 L 06/30/25 09:49 68 06/30/25 08:06 36.5 C 65 18 109/72 06/30/25 07:23 Pulse Ox O2 Del Method 06/30/25 17:13 06/30/25 12:22 06/30/25 11:59 06/30/25 11:43 06/30/25 11:38 06/30/25 09:49 06/30/25 08:06 97 Room Air 06/30/25 07:23 Room Air Laboratory Results Laboratory Results - last 24 hr 06/29/25 06/30/25 06/30/25 20:47 04:01 09:23 WBC 5.54 RBC 4.77 Hgb 14.4 Hct 42.3 MCV 88.7 MCH 30.2 MCHC 34.0 RDW Std Deviation 49.0 H RDW Coeff of Leela 14.9 H Plt Count 136 MPV 12.0 Immature Gran % (Auto) 0.2 Neut % (Auto) 59.2 Lymph % (Auto) 27.1 Blackford % (Auto) 10.8 Eos % (Auto) 1.8 Baso % (Auto) 0.9 Neut # (Auto) 3.28 Lymph # (Auto) 1.50 Blackford # (Auto) 0.60 H Eos # (Auto) 0.10 Baso # (Auto) 0.05 Immature Gran # (Auto) 0.01 Sodium 140 Potassium 4.5 Chloride 107 Carbon Dioxide 23 Anion Gap 10 BUN 56 H Creatinine 2.02 H Est Cr Clr Drug Dosing 42.8 eGFR 33.34 BUN/Creatinine Ratio 27.7 H Glucose 109 H POC Glucose 79 133 H Estimat Average Glucose 151 Hemoglobin A1c 6.9 H Calcium 8.9 Phosphorus 4.7 Magnesium 2.5 H 06/30/25 06/30/25 10:49 16:58 WBC RBC Hgb Hct MCV MCH MCHC RDW Std Deviation RDW Coeff of Leela Plt Count MPV Immature Gran % (Auto) Neut % (Auto) Lymph % (Auto) Blackford % (Auto) Eos % (Auto) Baso % (Auto) Neut # (Auto) Lymph # (Auto) Blackford # (Auto) Eos # (Auto) Baso # (Auto) Immature Gran # (Auto) Sodium Potassium Chloride Carbon Dioxide Anion Gap BUN Creatinine Est Cr Clr Drug Dosing eGFR BUN/Creatinine Ratio Glucose POC Glucose 188 H 121 H Estimat Average Glucose Hemoglobin A1c Calcium Phosphorus Magnesium Diagnostic Findings Head CT 06/30/25 10:54 CT head/brain wo con CLINICAL HISTORY: 79 years-old Male with AMS. Acutely altered mental status TECHNIQUE: Multiple axial CT images of the head were obtained without contrast. A dose lowering technique was utilized adhering to the principles of ALARA. CT DOSE: 873.7 mGy.cm COMPARISON: Head CT 06/23/2025, brain MRI 05/11/2022 FINDINGS: No acute intracranial hemorrhage, midline shift, intracranial mass, hydrocephalus, territorial ischemia or abnormal extra-axial collection. Scattered areas of encephalomalacia related to chronic infarcts in the bilateral cerebral hemispheres an right cerebellum are redemonstrated. Involutional changes with chronic microvascular ischemic disease. Prior bilateral lens repair. The calvarium is intact. The paranasal sinuses, mastoid air cells, and middle ear cavities are clear. IMPRESSION: No acute intracranial abnormality. ACT 112: Negative or not required by law. The above report was generated using voice recognition software. It may contain grammatical, syntax or spelling errors. Electronically signed by: Don Dennis M.D. 06/30/2025 11:32 AM Chest X-Ray 06/30/25 16:11 EXAM: Portable AP chest radiograph TECHNIQUE: AP portable radiograph of the chest was obtained. INDICATION: Shortness of breath Comparison: Chest radiograph June 23, 2025. FINDINGS: LINES and TUBES: Left-sided cardiac ICD again seen with leads projecting over the right atrium and the right ventricle of the heart. CARDIOVASCULAR: Cardiac silhouette is stably enlarged in size with redemonstrated post-CABG changes. LUNGS/PLEURA: No focal consolidation identified. Mild interstitial pulmonary edema is similar to the previous. Small pleural fluids are suggested. No discernible pneumothorax. OSSEOUS/OTHER: No displaced acute osseous process identified. Median sternotomy wires, several of which are fractured. IMPRESSION: Similar congestive changes of the cardiovascular system compared to the previous. Electronically signed by Bryce Curran 06-30-2025 5:14 PM Medications Administered Home Medications Medication Instructions Recorded Confirmed Last Taken isosorbide mononitrate 30 mg 30 mg PO QAM #0 tabs 08/12/14 06/29/25 05/03/24 tablet,extended release 24 hr nitroglycerin 0.4 mg sublingual 0.4 mg sublingual Q5M PRN Chest 08/15/17 06/29/25 Unknown tablet Pain ##0 rosuvastatin 40 mg tablet 40 mg PO QAM 03/30/19 06/29/25 05/03/24 tamsulosin 0.4 mg capsule 0.4 mg PO BID 03/30/19 06/29/25 05/03/24 clopidogrel 75 mg tablet 75 mg PO QAM 03/15/21 06/29/25 05/03/24 montelukast 10 mg tablet 10 mg PO QAM 03/15/21 06/29/25 05/03/24 ezetimibe 10 mg tablet 10 mg PO QAM 07/29/21 06/29/25 05/03/24 pregabalin 75 mg capsule 75 mg PO QID 05/10/22 06/29/25 05/03/24 ascorbic acid (vitamin C) 1,000 mg 1 g PO HS 10/18/23 06/29/25 05/03/24 tablet (Vitamin C) cyanocobalamin (vitamin B-12) 500 mcg PO HS 10/18/23 06/29/25 05/03/24 1,000 mcg tablet (Vitamin B-12) finasteride 5 mg tablet (Proscar) 5 mg PO DAILY 10/18/23 06/29/25 05/03/24 furosemide 20 mg tablet 20 mg PO QAM 06/23/25 06/29/25 Unknown apixaban 5 mg tablet (Eliquis) 5 mg PO BID #60 tabs 06/25/25 06/29/25 Unknown metoprolol succinate 50 mg 50 mg PO QAM #30 tabs 06/25/25 06/29/25 Unknown tablet,extended release 24 hr sacubitril 24 mg-valsartan 26 mg 1 tab PO BID #60 tabs 06/25/25 06/29/25 Unknown tablet (Entresto) empagliflozin 25 mg tablet 25 mg PO QAM 06/29/25 06/29/25 Unknown (Jardiance) spironolactone 25 mg tablet 25 mg PO QAM 06/29/25 06/29/25 Unknown Active Medications Generic Name Dose Route Start Last Admin Trade Name Que PRN Reason Stop Dose Admin Apixaban 5 mg 06/29/25 21:00 06/30/25 08:07 Apixaban 5 Mg Tablet PO 07/29/25 20:59 5 mg BID GITA Administration Clopidogrel Bisulfate 75 mg 06/30/25 09:00 06/30/25 08:07 Clopidogrel Bisulfate 75 Mg Tab PO 07/30/25 08:59 75 mg QAM GITA Administration Cyanocobalamin 500 mcg 06/29/25 21:00 06/29/25 21:52 Cyanocobalamin (B-12) 500 Mcg Tablet PO 07/29/25 20:59 500 mcg HS GITA Administration Ezetimibe 10 mg 06/30/25 09:00 06/30/25 08:08 Ezetimibe 10 Mg Tab PO 07/30/25 08:59 10 mg QAM GITA Administration Empagliflozin 25 mg 06/30/25 09:00 06/30/25 08:08 Empagliflozin 25 Mg Tab PO 07/30/25 08:59 25 mg QAM GITA Administration Finasteride 5 mg 06/30/25 09:00 06/30/25 08:08 Finasteride 5 Mg Tab PO 07/30/25 08:59 5 mg DAILY GITA Administration Furosemide 20 mg 06/29/25 17:00 06/30/25 08:09 Furosemide Inj 20 Mg/2 Ml Vial IV 07/29/25 16:59 20 mg [id number] GITA Administration Insulin Aspart 0 units 06/29/25 16:30 06/30/25 13:01 Insulin Aspart Per Unit Charge SC 07/29/25 16:29 7 units ACHS GITA Administration Isosorbide Mononitrate 30 mg 06/30/25 09:00 06/30/25 08:09 Isosorbide Blackford Extended Rel 30 Mg Tabcr PO 07/30/25 08:59 30 mg QAM GITA Administration Metoprolol Succinate 50 mg 06/30/25 09:00 06/30/25 08:09 Metoprolol Succ 50mg Ext Rel Tab PO 07/30/25 08:59 50 mg QAM GITA Administration Montelukast Sodium 10 mg 06/30/25 09:00 06/30/25 08:09 Montelukast Sodium 10 Mg Tablet PO 07/30/25 08:59 10 mg QAM GITA Administration Pregabalin 75 mg 06/29/25 17:00 06/30/25 13:05 Pregabalin 75 Mg Cap PO 07/29/25 16:59 75 mg QID GITA Administration Rosuvastatin Calcium 40 mg 06/30/25 09:00 06/30/25 08:10 Rosuvastatin Calcium 20 Mg Tab PO 07/30/25 08:59 40 mg QAM GITA Administration Sacubitril/Valsartan 1 tab 06/29/25 21:00 06/30/25 08:07 Valsartan/Sacubitril 26/24mg Tab PO 07/29/25 20:59 1 tab BID GITA Administration Tamsulosin HCl 0.4 mg 06/29/25 21:00 06/30/25 08:10 Tamsulosin Hcl 0.4 Mg Cap PO 07/29/25 20:59 0.4 mg BID GITA Administration (1) Vascular dementia Dementia severity: unspecified severity Dementia behavioral or psychological symptom: unspecified whether behavioral, psychotic, or mood disturbance or anxiety Qualified Code(s): F01.50 - Vascular dementia, unspecified severity, without behavioral disturbance, psychotic disturbance, mood disturbance, and anxiety
--- NOTE | 2025-06-30 18:12 | Critical Care Consultation ---
Date of Consultation June 30, 2025 Assessment & Plan (1) HOYT (dyspnea on exertion): (2) Ischemic cardiomyopathy: (3) Acute exacerbation of CHF (congestive heart failure): (4) Hypotension: (5) MCKENZIE (acute kidney injury): (6) Peripheral vascular disease: (7) GERD (gastroesophageal reflux disease): (8) Chronic bundle branch block: (9) Dyslipidemia: (10) Vascular dementia: Plan Reason Critically Ill: 79-year-old male admitted to the hospital for shortness of breath. Sent to ICU for hypotension on the floor Coronary artery disease s/p CABG in 2018, biventricular AICD 2020, chronic left bundle branch block, systolic CHF, vascular dementia, CKD stage IIIa, diabetes type 2, paroxysmal A-fib on Eliquis Neuro - [facility]: -- History of vascular dementia Progressive memory deficits since last 6-8 weeks Cardiac - 2D echo 06/24/2025: EF 30-35%, grade 2 diastolic dysfunction, moderate MR, RV normal in size and function -- Transient hypotension Could be secondary to overdiuresis He did get IV fluids on the floor In the ICU patient's blood pressure is decent. I do not think any inotrope support is needed right now. If he deteriorates then inotrope support could be considered --Paroxysmal A-fib On Eliquis TSH within normal limits 06/24/2025 --History of coronary artery disease s/p CABG in 2019 On metoprolol succinate 50, Entresto, spironolactone 25 mg at home --Bilateral carotid artery stenosis 90% left ICA and 40% stenosis of the proximal right ICA Respiratory - Chest x-ray 06/30/2025 personally reviewed: Portable film, satisfactory effort, right costophrenic angle is clean, left costophrenic angle is blunted, AICD in place, no clear lung infiltrate appreciated --Saturating well on room air --[id number] smoking history Quit in 1988 GI - -- No acute issues RENAL/LYTES - -- MCKENZIE on CKD 3 AA Baseline creatinine 1.6 Monitor BUN/creatinine Avoid nephrotoxic medications Strict ins and outs ENDO - -- Diabetes type 2 Continue with ICU hypoglycemia protocol HEME - -- Monitor H&H ID - -- No signs of infection Chest x-ray and UA clean --Prophylaxis VTE: Eliquis GI: None Lines: Peripheral Diet: Cardiac Plan: In/out: Positive 910 mL since coming to the hospital Patient's blood pressure in the ICU is in the MAP 70s. Unsure if there was issue with the blood pressure cuff on the floor. Hold blood pressure medication for the time being Lactate and BNP ordered for the patient along with random cortisol If there is any worsening of patient's blood pressure then would recommend 5% albumin, 5 to 10 mL to be given first and if still no improvement then inotrope. I have personally spent 46 minutes of critical care time in the direct management of this patient. This is a life/limb threatening event. This includes time spent evaluating patient, direct bedside care, chart review, placing orders, interpretation of diagnostic studies, discussion with consultants, patient, and family members, as well as other required patient management activities. This time is exclusive of all separately billable procedures, and teaching time and separate from and in addition to any other critical care service time. History of Present Illness Attending Physician: Ayaz Swift MD History of Present Illness 79-year-old male admitted to the hospital for shortness of breath. Sent to ICU for hypotension on the floor Coronary artery disease s/p CABG in 2018, biventricular AICD 2020, chronic left bundle branch block, systolic CHF, vascular dementia, CKD stage IIIa, diabetes type 2, paroxysmal A-fib on Eliquis Brief signout was given by Dr. Mckenzie. On the phone I was told that the patient systolic blood pressure has been in the 70s and he was complaining of worsening shortness of breath. He was given fluids today but given that he started complaining of shortness of breath they were elected to give him more fluids. In the ICU when I saw the patient's patient's was in the room. He was not in any respiratory distress He was saturating 97% on room air Heart rate was in the 70s. Irregular. Blood pressure was systolic in the 110's MAP was in the high 70s. I checked the blood pressure twice He denies any dizziness, no nausea, no vomiting No unusual headache or blurry vision No weakness anywhere. Denies any abdominal pain. Has been afebrile Social history: Approximately [id number] smoking history, quit in 1988. 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 No history of lung cancer in the family Allergies Allergy/AdvReac Type Severity Reaction Status Date / Time No Known Allergies Allergy Verified 05/04/24 00:08 Home Medications Medication Instructions Recorded Confirmed Type isosorbide mononitrate 30 mg 30 mg PO QAM #0 tabs 08/12/14 06/29/25 History tablet,extended release 24 hr nitroglycerin 0.4 mg sublingual 0.4 mg sublingual Q5M PRN Chest 08/15/17 06/29/25 History tablet Pain ##0 rosuvastatin 40 mg tablet 40 mg PO QAM 03/30/19 06/29/25 History tamsulosin 0.4 mg capsule 0.4 mg PO BID 03/30/19 06/29/25 History clopidogrel 75 mg tablet 75 mg PO QAM 03/15/21 06/29/25 History montelukast 10 mg tablet 10 mg PO QAM 03/15/21 06/29/25 History ezetimibe 10 mg tablet 10 mg PO QAM 07/29/21 06/29/25 History pregabalin 75 mg capsule 75 mg PO QID 05/10/22 06/29/25 History ascorbic acid (vitamin C) 1,000 mg 1 g PO HS 10/18/23 06/29/25 History tablet (Vitamin C) cyanocobalamin (vitamin B-12) 500 mcg PO HS 10/18/23 06/29/25 History 1,000 mcg tablet (Vitamin B-12) finasteride 5 mg tablet (Proscar) 5 mg PO DAILY 10/18/23 06/29/25 History furosemide 20 mg tablet 20 mg PO QAM 06/23/25 06/29/25 History apixaban 5 mg tablet (Eliquis) 5 mg PO BID #60 tabs 06/25/25 06/29/25 Rx metoprolol succinate 50 mg 50 mg PO QAM #30 tabs 06/25/25 06/29/25 Rx tablet,extended release 24 hr sacubitril 24 mg-valsartan 26 mg 1 tab PO BID #60 tabs 06/25/25 06/29/25 Rx tablet (Entresto) empagliflozin 25 mg tablet 25 mg PO QAM 06/29/25 06/29/25 History (Jardiance) spironolactone 25 mg tablet 25 mg PO QAM 06/29/25 06/29/25 History Patient History Medical History Orthostasis Acute kidney injury superimposed on CKD Acute hypokalemia Elevated troponin Pneumonia Sepsis Presence of combination internal cardiac defibrillator (ICD) and pacemaker 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 CKD (chronic kidney disease), stage III Cardiomyopathy, ischemic CKD (chronic kidney disease) stage 3, GFR 30-59 ml/min Elevated troponin LBBB (left bundle branch block) Atrial fibrillation with rapid ventricular response Stenosis of left internal carotid artery Ischemic cardiomyopathy DVT prophylaxis Paroxysmal A-fib CVA (cerebral vascular accident) GERD (gastroesophageal reflux disease) Diabetes Hypertension Coronary artery disease 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 Diabetes mellitus, type 2 Surgical History History of coronary artery stent placement LAD and RCA 2019 S/P CABG x 2 Family History Mother Stroke Denies family history of Crohn's disease Colorectal cancer Ulcerative colitis Social History Smoking Status: Former smoker Tobacco Type: Cigarettes Second Hand Exposure: No; Do You Dip or Chew Tobacco: No; Tobacco Cessation Education Requested by Patient: No Hx Alcohol Use: Yes Alcohol type: beer Hx Substance Use: No Preferred Language: Bengali Communication Ability: Effective Communication Ability Comment: [phone] Tenderizer Tender Required: No Beliefs That Will Affect Care: None marital status: Current Living Situation: Spouse current occupation: Retired Feels Safe at Home: Yes Safety Concerns: Feels Safe At This Time Assistive Devices: None Review of Systems 2 Review of Systems: All systems reviewed & are unremarkable except as noted in HPI & below Physical Exam 2 Physical Exam: Constitutional: No acute distress HEENT: EOMI, PERRLA, seems to have little slurred speech at baseline Respiratory system: Good air entry bilaterally, no wheeze, no rhonchi, no crackles CVS: S1-S2 positive, no murmurs or gallops, left-sided AICD Abdomen: Soft, nontender, nondistended, positive bowel sounds x4, obese Extremities: +2 pulses bilaterally radialis/ dorsalis pedis, no cyanosis, +2 edema bilateral lower extremity Neuro: Awake alert oriented x3, cranial nerves II to XII grossly intact Psych: Normal mood and affect G/U: No Sharp Skin: no rashes, warm and dry Lymphatic: no cervical or axillary lymphadenopathy Results & Data Results & Data Vital Signs (Past 12 Hours) Vital Signs Temp Pulse Pulse Pulse Resp BP BP 06/30/25 17:13 68 06/30/25 12:22 62 88/46 L 06/30/25 11:59 64 58/32 L 06/30/25 11:43 66 76/44 L 06/30/25 11:38 64 66/46 L 06/30/25 09:49 68 06/30/25 08:06 36.5 C 65 18 109/72 06/30/25 07:23 Pulse Ox O2 Del Method 06/30/25 17:13 06/30/25 12:22 06/30/25 11:59 06/30/25 11:43 06/30/25 11:38 06/30/25 09:49 06/30/25 08:06 97 Room Air 06/30/25 07:23 Room Air Laboratory Results 06/30/25 04:01 06/30/25 04:01 Coding Level of Care Code 69411 CRITICAL CARE 1ST 30-74M Diagnoses HOYT (dyspnea on exertion) R06.09 Ischemic cardiomyopathy I25.5 Acute exacerbation of CHF (congestive heart failure) I50.9 Hypotension I95.9 MCKENZIE (acute kidney injury) N17.9 Peripheral vascular disease I73.9 GERD (gastroesophageal reflux disease) K21.9 Chronic bundle branch block I45.4 Dyslipidemia E78.5 Vascular dementia, unspecified dementia severity, unspecified whether behavioral, psychotic, or mood disturbance or anxiety F01.50 Dementia severity: unspecified severity Dementia behavioral or psychological symptom: unspecified whether behavioral, psychotic, or mood disturbance or anxiety (10) Vascular dementia Dementia severity: unspecified severity Dementia behavioral or psychological symptom: unspecified whether behavioral, psychotic, or mood disturbance or anxiety Qualified Code(s): F01.50 - Vascular dementia, unspecified severity, without behavioral disturbance, psychotic disturbance, mood disturbance, and anxiety
[2025-07-01 05:03] LABS: Hematocrit (blood only) 44.7 % (42.0-52.0); Hemoglobin 14.9 g/dl (14.0-18.0); Immature Granulocytes # (auto) 0.01 K/uL (0.01-0.20); Immature Granulocytes % (auto) 0.1 %; Mean Corpuscular Hemoglobin 29.4 pg (25.0-34.0); Mean Corpuscular Volume 88.2 fL (80.0-100.0); Platelet Count 139 K/uL (130-400); RDW Standard Deviation 49.2 fL (36.4-46.3); Red Blood Count 5.07 M/uL (4.70-6.10); White Blood Count 7.15 K/ul (4.8-10.8)
[2025-07-01 05:17] LABS: Anion Gap 10.0 (3-11); Blood Urea Nitrogen 59.0 mg/dl (6-23); Calcium 9.0 mg/dl (8.6-10.3); Carbon Dioxide 23.0 mmol/L (21-32); Chloride 107.0 mmol/L (98-107); Creatinine Clr Calc Pharmacy 44.8 ml/min; Glucose 106.0 mg/dl (70-99(Fasting)); Magnesium 2.6 mg/dl (1.7-2.4); Potassium 4.5 mmol/L (3.5-5.1); Sodium 140.0 mmol/L (136-145)
--- NOTE | 2025-07-01 07:33 | Critical Care Progress Note ---
Date of Service July 01, 2025 Assessment & Plan (1) HOYT (dyspnea on exertion): (2) Ischemic cardiomyopathy: (3) Acute exacerbation of CHF (congestive heart failure): (4) Hypotension: (5) MCKENZIE (acute kidney injury): (6) Peripheral vascular disease: (7) GERD (gastroesophageal reflux disease): (8) Chronic bundle branch block: (9) Dyslipidemia: (10) Vascular dementia: Plan Reason Critically Ill: 79-year-old male admitted to the hospital for shortness of breath. Sent to ICU for hypotension on the floor Coronary artery disease s/p CABG in 2018, biventricular AICD 2020, chronic left bundle branch block, systolic CHF, vascular dementia, CKD stage IIIa, diabetes type 2, paroxysmal A-fib on Eliquis Neuro - [facility]: -- History of vascular dementia Progressive memory deficits since last 6-8 weeks With carotid artery stenosis. Overall goal is to be have permissive hypertension but with multiple PVCs it has seem to be difficult Cardiac - 2D echo 06/24/2025: EF 30-35%, grade 2 diastolic dysfunction, moderate MR, RV normal in size and function -- Transient hypotension Could be secondary to overdiuresis plus high PVC burden He did get IV fluids on the floor In the ICU patient's blood pressure is decent. I do not think any inotrope support is needed right now. If he deteriorates then inotrope support could be considered --Paroxysmal A-fib as well as NSVT On Eliis TSH within normal limits 06/24/2025 --History of coronary artery disease s/p CABG in 2019 On metoprolol succinate 50, Entresto, spironolactone 25 mg at home --Bilateral carotid artery stenosis 90% left ICA and 40% stenosis of the proximal right ICA Respiratory - Chest x-ray 06/30/2025 personally reviewed: Portable film, satisfactory effort, right costophrenic angle is clean, left costophrenic angle is blunted, AICD in place, no clear lung infiltrate appreciated --Saturating well on room air --[id number] smoking history Quit in 1988 GI - -- No acute issues RENAL/LYTES - -- MCKENZIE on CKD 3 AA Baseline creatinine 1.6 Monitor BUN/creatinine Avoid nephrotoxic medications Strict ins and outs ENDO - -- Diabetes type 2 Continue with ICU hypoglycemia protocol HEME - -- Monitor H&H ID - -- No signs of infection Chest x-ray and UA clean --Prophylaxis VTE: Eliquis GI: None Lines: Peripheral Diet: Cardiac Plan: In/out: -791, urine output 1950 Patient does have high PVC burden on the telemetry strip. That could be one of the reason why patient suddenly gets hypotensive. Does not seem to be in a CHF exacerbation right now. If he gets hypotensive then would give IV albumin. Case discussed with Dr. Gann in depth. They would want him to get metoprolol so that we can decrease the burden of PVCs. They are considering restarting amiodarone for the same reason. His random cortisol is only 4.85. I would have low threshold to start hydrocortisone if need be. Midodrine could also be thought of keeping in mind that it might increase the afterload but at least we would be able to use beta-blockers with it Given that we are going to start him on metoprolol 25 mg I would like him to be in the unit to monitor his blood pressure. If his blood pressure stays stable then consider downgrading to PCU later today. Patient's was at bedside was made aware regarding the discussions. I spent more than 50 minutes looking in the chart, images, discussing the plan of care with the patient, RN as well as primary team This includes time spent evaluating patient, direct bedside care, chart review, placing orders, interpretation of diagnostic studies, discussion with consultants, patient, and family members, as well as other required patient management activities. This time is exclusive of all separately billable procedures, and teaching time and separate from and in addition to any other critical care service time. Please note the above document was generated using voice recognition software. It may contain grammatical, syntax or spelling errors.Any formal questions or concerns about the content, text or information contained within the body of this dictation should be directly addressed to the provider for clarification. Admission and Anticipated Discharge Date Admission Date: June 30, 2025 Subjective Patient seen and examined at bedside. No acute distress, no adverse events overnight Patient's blood pressure was in the 110s when I saw him with MAP in the low 70s He did have 1 episode of low blood pressure in the 90s overnight. Denied any nausea or vomiting No abdominal pain No headache He does have some slurred speech which is his baseline. He was saturating well on room air Review of Systems 2 Review of Systems: All systems reviewed & are unremarkable except as noted in Subjective Physical Exam 2 Physical Exam: Constitutional: No acute distress HEENT: EOMI, PERRLA, seems to have little slurred speech at baseline Respiratory system: Good air entry bilaterally, no wheeze, no rhonchi, no crackles CVS: S1-S2 positive, no murmurs or gallops, left-sided AICD Abdomen: Soft, nontender, nondistended, positive bowel sounds x4, obese Extremities: +2 pulses bilaterally radialis/ dorsalis pedis, no cyanosis, +2 edema bilateral lower extremity Neuro: Awake alert oriented x3, cranial nerves II to XII grossly intact Psych: Normal mood and affect G/U: No Sharp Skin: no rashes, warm and dry Lymphatic: no cervical or axillary lymphadenopathy Results & Data Results & Data Vital Signs (Past 12 Hours) Vital Signs Temp Pulse Resp BP Pulse Ox O2 Del Method 07/01/25 06:00 78 19 138/67 95 Room Air 07/01/25 05:06 72 20 117/62 93 Room Air 07/01/25 04:00 36.5 C 88 18 109/53 L 97 Room Air 07/01/25 03:03 96 H 15 105/54 L 97 Room Air 07/01/25 02:07 86 20 95/49 L 96 Room Air 07/01/25 01:01 71 15 109/79 97 Room Air 07/01/25 00:17 83 15 155/70 H 97 Room Air 06/30/25 23:04 76 06/30/25 23:03 88 17 158/78 H 96 Room Air 06/30/25 22:06 75 18 97 Room Air 06/30/25 21:00 76 19 140/99 95 Room Air 06/30/25 20:04 36.6 C 88 20 132/79 99 Room Air 06/30/25 19:34 71 Laboratory Results 07/01/25 04:33 07/01/25 04:33 Coding Level of Care Code 20425 SUB INP/OBS CARE 3/50MIN Diagnoses HOYT (dyspnea on exertion) R06.09 Ischemic cardiomyopathy I25.5 Acute exacerbation of CHF (congestive heart failure) I50.9 Hypotension I95.9 MCKENZIE (acute kidney injury) N17.9 Peripheral vascular disease I73.9 GERD (gastroesophageal reflux disease) K21.9 Chronic bundle branch block I45.4 Dyslipidemia E78.5 Vascular dementia, unspecified dementia severity, unspecified whether behavioral, psychotic, or mood disturbance or anxiety F01.50 Dementia behavioral or psychological symptom: unspecified whether behavioral, psychotic, or mood disturbance or anxiety Dementia severity: unspecified severity (10) Vascular dementia Dementia behavioral or psychological symptom: unspecified whether behavioral, psychotic, or mood disturbance or anxiety Dementia severity: unspecified severity Qualified Code(s): F01.50 - Vascular dementia, unspecified severity, without behavioral disturbance, psychotic disturbance, mood disturbance, and anxiety
[2025-07-01 09:20] LABS: Thyroid Stimulating Hormone 5.337 uIu/ml (0.300-4.500)
[2025-07-01] MEDS: METOPROLOL SUCC 25MG EXT REL TAB PO SCH (10:11)
--- NOTE | 2025-07-01 10:28 | Cardiology Progress Note ---
Date of Service July 01, 2025 Assessment & Plan (1) History of CVA (cerebrovascular accident): (2) Ischemic cardiomyopathy: (3) NSVT (nonsustained ventricular tachycardia): (4) Acute on chronic heart failure with reduced ejection fraction (HFrEF, <= 40%): (5) HTN (hypertension): Plan (1)HFrEF (2)HTN (3)Pacemaker/AICD (4)CVA/ Vascular dementia (5)Ischemic cardiomyopathy HFrEF -Reduce dose of Toprol XL to 25 mg daily -Continue education on low sodium diet and fluid restriction. -Continue to hold Jardiance, Lasix, Imdur and Entresto -Monitor I/O and weight closely HTN -Permissive HTN -Metoprolol reduced to 25 mg daily. -Bp'S labile, but improving this am -Last reading at bedside 118/62 Pacemaker/AICD- frequent PVCs/ NSVT -Continue Metoprolol XL 25 mg daily -Consider adding Amiodarone 200mg -Liver enzymes and TSH wnl -Follow with pacer clinic as scheduled -Paced on Tele CVA/ Vascular dementia -Continue, Plavix and Eliquis -Obtain MRI, awaiting scheduling -Neurology consulted Ischemic cardiomyopathy/HLD - Metoprolol XL 25 daily -Continue rosuvastatin,Zetia -Continue Plavix, and Eliquis I spent a total of 30 minutes on the date of service in preparation, delivery, and documentation of the care provided to this patient, excluding any time spent in the performance of separately billed services. Steven MAGAÑA Department of Cardiology, [facility] This chart was completed in part utilizing Speech Voice Recognition Software. Grammatical errors, random word insertions, pronoun errors, and incomplete sentences are an occasional consequence of this system due to software limitations, ambient noise, and hardware issues. Any formal questions or concerns about the content, text, or information contained within the body of this dictation should be directly addressed to the provider for clarification. Admission and Anticipated Discharge Date Admission Date: June 30, 2025 Supervising Physician Co-Signing Physician Notes Attending attestation: Case reviewed with the advanced practitioner. I have personally performed a history and physical examination on the patient. I have reviewed the advanced practitioner's documentation on the date of service referenced in note, and I agree with, and take responsibility for the plan of care. Patient subjectively improved. Telemetry reveals sinus rhythm with AV sequential pacing ongoing frequent PVCs. I believe that some of the blood pressure readings are technically limited due to the frequent PVCs. Liver function test as measured on 06/29/2025 within normal limits. TSH obtained today minimally elevated at 5.3 IU/L, free T4 normal. Resume amiodarone 200 mg twice daily. This will not lower the blood pressure, and we will be helpful with regards to suppressing the PVCs and allowing for therapeutic biventricular pacing. The corrected QT interval as measured on EKG is over 500 ms, but this measurement is not reliable given the frequent PVCs. With pacemaker/AICD in place, for arrhythmia risk of amiodarone felt to be low. Patient was previously on amiodarone, stopped for unknown reasons in around 2021 per patient/spouse do not remember him having any intolerance. Case discussed with Dr Rodrigez of critical care medicine for the purpose of coordination of care. I spent a total of 30 minutes coordinating, documenting, and providing care for this patient excluding time spent in the performance of separately billed services or time spent by another provider. DO Olya Amaya Patient is seen today in the ICU for follow-up. Was transferred to ICU yesterday evening after episodes of hypotension as low as 58/32. Pt was symptomatic with these pressures with i ntelligible speech, slower mentation and lightheadedness, and dizziness yesterday. Attempts were made to bolus and watch as bp's have been labile. Patient received 500 mL, normal saline bolus yesterday but due to concerns of ongoing low blood pressure was transferred to the intensive care unit for further observation/management. Blood pressure has improved without need for pressors. It is thought that due to pt's history of CVA's and last admissions medication adjustments and implementation of GDMT for heart failure that this impeded cerebrovascular blood flow and this could be the causation for the stroke like symptoms experienced yesterday. Pt is known to have vascular dementia, but pt and verbalized worsening issues yesterday on assessment Pt is mentating and feeling better today, smiling and in good spirits with at bedside joking. Pt and state that he is better today, but are concerned with the still low bp's as they are informed that he is to have permissive hypertension for better cerebral blood flow. Bp's are labile, as I was sitting bedside with pt's discussing care I cycled through two pressures 15 min apart. The first reading was 85/48, and then 118/62. Pt states he is still lightheaded, but not dizzy and states he does not have cp, sob, palpitations or other issues at this time. Review of Systems Review of Systems: All systems reviewed & are unremarkable except as noted in HPI & below Constitutional: + weakness Cardiovascular: + lightheadedness Physical Exam Constitutional: WD/WN, vitals as above + overweight Eyes: PERRL Neck: trachea midline, no thyromegaly Respiratory: normal respiratory effort, lungs clear to auscultation Auscultation: lungs clear to auscultation bilaterally and + diminished lung sounds Cardiovascular: RRR, no murmur, no edema Rate/Rhythm: regular rate and regular rhythm Extremities: normal capillary refill Chest (Breasts): Chest: + pacemaker Gastrointestinal (Abdomen): normal bowel sounds, soft, nontender, no hepatosplenomegaly Musculoskeletal: no cyanosis or clubbing, extremities motor strength 5/5 Skin: no rashes, warm and dry Neurologic: Facial palsy and dysarthria at baseline for pt. Psychiatric: A+Ox3, euthymic affect Results & Data Vital Signs (Past 12 Hours) Vital Signs Temp Pulse Resp BP Pulse Ox O2 Del Method 07/01/25 06:00 78 19 138/67 95 Room Air 07/01/25 05:06 72 20 117/62 93 Room Air 07/01/25 04:00 36.5 C 88 18 109/53 L 97 Room Air 07/01/25 03:03 96 H 15 105/54 L 97 Room Air 07/01/25 02:07 86 20 95/49 L 96 Room Air 07/01/25 01:01 71 15 109/79 97 Room Air 07/01/25 00:17 83 15 155/70 H 97 Room Air 06/30/25 23:04 76 06/30/25 23:03 88 17 158/78 H 96 Room Air Laboratory Results Cardiac Enzymes 06/30/25 Range/Units 18:38 B-Natriuretic Peptide 145 H (0-100) pg/ml Coagulation 06/30/25 Range/Units 18:38 B-Natriuretic Peptide 145 H (0-100) pg/ml CBC 07/01/25 Range/Units 04:33 WBC 7.15 (4.8-10.8) K/ul RBC 5.07 (4.70-6.10) M/uL Hgb 14.9 (14.0-18.0) g/dl Hct 44.7 (42.0-52.0) % Plt Count 139 (130-400) K/uL Neut # (Auto) 4.51 (1.40-6.50) K/uL Lymph # (Auto) 1.73 (1.20-3.40) K/uL [place] # (Auto) 0.72 H (0.11-0.59) K/uL Eos # (Auto) 0.12 (0.00-0.50) K/uL Baso # (Auto) 0.06 (0.00-0.20) K/uL Comprehensive Metabolic Panel 07/01/25 Range/Units 04:33 Sodium 140 (136-145) mmol/L Potassium 4.5 (3.5-5.1) mmol/L Chloride 107 (98-107) mmol/L Carbon Dioxide 23 (21-32) mmol/L BUN 59 H (6-23) mg/dl Creatinine 1.94 H (0.6-1.4) mg/dl Glucose 106 H (70-99(Fasting)) mg/dl Calcium 9.0 (8.6-10.3) mg/dl Intake and Output 06/30/25 07/01/25 07/01/25 22:59 06:59 14:59 Intake Total 500 / 1160 300 / 1160 Output Total 500 / 1951 851 / 1951 Balance 0 / -791 -551 / -791 Intake: IV 500 / 500 Sodium Chloride 0.9% 500 ml @ 500 / 500 125 mls/hr IV .Q4H [facility] Rx#: [id number] Oral 300 / 660 Output: Urine 500 / 1950 850 / 1950 # Bowel Movements Other: Weight 121.9 kg 121.8 kg Weight Measurement Method Built in [facility] Medications Administered Current Inpatient Medications Acetaminophen (Acetaminophen 325 Mg Tab) 650 mg PO Q4H PRN PRN Reason: Pain or Fever Stop: 07/29/25 14:16 Apixaban (Apixaban 5 Mg Tablet) 5 mg PO BID [facility] Stop: 07/29/25 20:59 Last Admin: 07/01/25 08:03 Dose: 5 mg Clopidogrel Bisulfate (Clopidogrel Bisulfate 75 Mg Tab) 75 mg PO QAM [facility] Stop: 07/30/25 08:59 Last Admin: 07/01/25 08:03 Dose: 75 mg Cyanocobalamin (Cyanocobalamin (B-12) 500 Mcg Tablet) 500 mcg PO HS [facility] Stop: 07/29/25 20:59 Last Admin: 06/30/25 20:07 Dose: 500 mcg Dextrose (Dextrose 50% 50 Ml Syringe) 25 - 50 ml IV UD PRN; Protocol PRN Reason: Hypoglycemia Protocol Stop: 07/29/25 15:07 Ezetimibe (Ezetimibe 10 Mg Tab) 10 mg PO [facility] Stop: 07/30/25 08:59 Last Admin: 07/01/25 08:03 Dose: 10 mg Empagliflozin (Empagliflozin 25 Mg Tab) [facility] Stop: 07/30/25 08:59 Last Admin: 06/30/25 08:08 Dose: 25 mg Finasteride (Finasteride 5 Mg Tab) 5 mg PO DAILY [facility] Stop: 07/30/25 08:59 Last Admin: 07/01/25 08:02 Dose: 5 mg Furosemide (Furosemide Inj 20 Mg/2 Ml Vial) 20 mg IV [id number] [facility] Stop: 07/29/25 16:59 Last Admin: 06/30/25 08:09 Dose: 20 mg Glucagon (Glucagon For Inj 1 Mg Vial) 1 mg SQ UD PRN; Protocol PRN Reason: Hypoglycemia Protocol Stop: 07/29/25 15:07 Glucose (Glucose 40% Gel 15 Gm Tube) 15 - 30 gm PO UD PRN; Protocol PRN Reason: Hypoglycemia Protocol Stop: 07/29/25 15:07 Glucose (Glucose 10 Tab/Tube) 4 - 8 tab PO UD PRN; Protocol PRN Reason: Hypoglycemia Protocol Stop: 07/29/25 15:07 Insulin Aspart (Insulin Aspart Per Unit Charge) 0 units SC ACHS [facility] Stop: 07/29/25 16:29 Last Admin: 07/01/25 08:02 Dose: 6 units Isosorbide Mononitrate (Isosorbide [place] Extended Rel 30 Mg Tabcr) 30 [facility] Stop: 07/30/25 08:59 Last Admin: 06/30/25 08:09 Dose: 30 mg Metoprolol Succinate (Metoprolol Succ 25mg Ext Rel Tab) 25 mg PO QAM [facility] Stop: 07/31/25 08:59 Last Admin: 07/01/25 10:11 Dose: 25 mg Miscellaneous (Carbohydrates For Hypoglycemia ) 15 - 30 gm PO UD PRN PRN Reason: Hypoglycemia Protocol Stop: 07/29/25 15:07 Montelukast Sodium (Montelukast Sodium 10 Mg Tablet) 10 mg PO QAM [facility] Stop: 07/30/25 08:59 Last Admin: 07/01/25 08:03 Dose: 10 mg Ondansetron HCl (Ondansetron Inj 2 Mg/Ml 2 Ml Vial) 4 mg IV Q6H PRN PRN Reason: Nausea And Vomiting Stop: 07/29/25 20:46 Polyethylene Glycol (Polyethylene (Miralax) 17 Gm Pack) 17 gm PO DAILY PRN PRN Reason: Constipation Stop: 07/29/25 14:16 Pregabalin (Pregabalin 75 Mg Cap) 75 mg PO QID [facility] Stop: 07/29/25 16:59 Last Admin: 07/01/25 08:01 Dose: 75 mg Rosuvastatin Calcium (Rosuvastatin Calcium 20 Mg Tab) 40 mg PO QAM [facility] Stop: 07/30/25 08:59 Last Admin: 07/01/25 08:03 Dose: 40 mg Sacubitril/Valsartan (Valsartan/Sacubitril 26/24mg Tab) 1 tab PO BID [facility] [place] Stop: 07/29/25 20:59 Last Admin: 06/30/25 08:07 Dose: 1 tab Tamsulosin HCl (Tamsulosin Hcl 0.4 Mg Cap) 0.4 mg PO BID [facility] Stop: 07/29/25 20:59 Last Admin: 07/01/25 08:04 Dose: 0.4 mg PG Care Time/CCT Total # of Minutes Spent Total Time Spent: 30 Total Time Spent with Patient: Total time spent is greater than 50% in coordination of care (as documented) at patient's floor/unit and/or counseling patient: Coding Level of Care Code 69444 SUB INP/OBS CARE 3/50MIN Diagnoses History of CVA (cerebrovascular accident) Z86.73 Ischemic cardiomyopathy I25.5 NSVT (nonsustained ventricular tachycardia) I47.29 Acute on chronic heart failure with reduced ejection fraction (HFrEF, <= 40%) I50.23 HTN (hypertension) I10
--- NOTE | 2025-07-01 11:22 | Palliative Care Consultation ---
Date of Consultation July 02, 2025 Assessment & Plan (1) Palliative care by specialist: Met with pt and his Rosa at bedside from 11:00 - 11:40 to discuss GOC. Introduced Palliative Medicine and explained our role in advanced care planning, symptom management and navigation through the progression of life limiting disease. Patient and/or family were receptive to palliative services for goals of care discussions. Reviewed we are different from hospice, a home health nurse visiting service. (2) Counseling regarding advanced directives and goals of care: Patient currently exhibits decisional capacity based on the ability to convey understanding of personal PMHx, current medical condition, treatment options nor the risks / benefits/ potential outcomes of accepting/declining those options, and ability to make decisions based on such knowledge. Hospital does not have written documentation of patient wishes concerning his chosen proxy for medical decisions. Per PA [id number], in absence of written documentation of patient w ishrizwan, pt's proxy for medical decisions would be his . Pt does not require a proxy for medical decisions. Given the progressively debilitating nature of vascular dementia, we discussed establishing and advanced directive. Helped pt and understand the importance of written documentation of patient wishes concerning his chosen proxy for medical decisions. Discussed importance of chosing a proxy that is available by phone or in person and agrees to verbalize the patient's values and wishes in the event he is unable to express himself. Patient and verbalized understanding and requested blank copies of HCPOA paperwork to complete. I supplied them with 2 copies to review and complete at their leisure. (3) Advanced care planning/counseling discussion: Met with pt and his , they live in private residence and have two adult sons, a daughter and seven grandchildren who live locally and are very active in their lives. rosa shared that the patient remains independent with all ADLs but is needing more assistance with iADLs and experiencing increasing forgetfulness over past several weeks. We discussed the patient's heart failure and dementia as progressively debilitating diseases. Helped Tulio and Rosa understand the difficulty managing heart failure in setting of vascular dementia. Rosa shared that they have been told by cardiology that the patient will need CEA for carotid stenosis of 90%, but that he is extremely high risk for complications or so conservative management has been recommended. Rosa shared that Tulio has some limitations in his activity, but continues to have good quality of life so they do not feel that it is worth the risk to pursue any aggressive interventions at this time. Spent a substantial amount of time discussing the progressively debilitating nature of dementia. Explained that dementia is incurable and irreversible, and can include progressive/worsening memory loss, confusion, language difficulties/lack of comprehension skills/loss of verbal skills eventually, mood changes, impaired judgment, trouble with motor skills/coordination/balance issues, visual and spatial problems, hallucinations, and personality changes. The rate of progression in mixed dementia can vary widely from person to person. Factors such as the types of dementia involved, overall health, and genetics can influence the speed of progression. Some individuals experience a more gradual decline, while others may progress more rapidly through the stages. We discussed and differentiated dementia from delirium and helped family understand that they can co-exist. I reviewed Dementia is a terminal illness. Aggressive medical treatment for patients with advanced dementia is often inappropriate for medical reasons, has a low rate of success, and can have negative outcomes that hasten functional decline and . ([place] [employer] Ethics Committee and Clinical Practice and Models of Care Committee. J Am Geriatr Soc. 2014 Aug;62(8):1590-3 and Jordan SL, Catarina JM, Escobar SC, Bhupendra V. A national study of the location of for older persons with dementia. J Am Geriatr Soc 2005; 53(2):299-305.). Helped them understand differences between dementia and delirium. Discussed ty pical progression of dementia and how it may be staged. Stage 1: Normal Functioning: In the early stage, individuals show no signs of dementia, and their cognitive function is normal Stage 2: Very Mild Cognitive Decline: Minor memory lapses and forgetfulness may occur but are often attributed to normal aging Stage 3: Mild Cognitive Decline: Early signs of dementia become more noticeable, such as memory problems and difficulty finding words Stage 4: Moderate Cognitive Decline: Memory loss becomes more pronounced, and individuals may struggle with tasks like managing finances and planning Stage 5: Moderately Severe Cognitive Decline: Daily functioning becomes challenging, and individuals may require assistance with tasks like dressing and bathing Stage 6: Severe Cognitive Decline: In this stage, individuals need substantial help with daily activities, and communication becomes increasingly difficult Stage 7: Very Severe Cognitive Decline: In the final stage, individuals may lose the ability to communicate, walk, and perform basic tasks. They require iulkf-[id number] care. Older adults with dementia frequently receive acute care in their last year of life although Hospice care was more common for home/HALFWAY residents. Overall time in hospice remains short due to the underutilization of the hospice benefit for terminal dementia (Yesy MM, Alexandra JM, Danika KM, Keron DE, Carmenza PY. Dementia Care in the Last Year of Life: Experiences in a Community Practice and in Alf Facilities. J Palliat Care. 2022;38(2):135-142. doi:10.1177/[id number]) Home Hospice is a valuable option for terminal dementia who desire to have peaceful EOL at home. Home hospice care for advanced dementia can improve symptom management and caregiver satisfaction, while decreasing caregiver burden, preventing hospitalizations and discontinuing unnecessary medication (Tania SA, Stephanie R, Estrella G, et al. Home hospice for older people with advanced dementia: a sdv pilot/navigator/dds operator project [published correction appears in Isr J Health Policy Res. 2019 May 25;8(1):56]. Isr J Health Policy Res. 2019;8(1):42. Published 2018March 30. doi:10.1186/m52293-175-6672-z). We discussed outpt follow up with the palliative care team in clinic and and explained our role in advanced care planning, symptom management and navigation through the progression of life limiting disease. Rosa and Tulio are agreeable and may benefit from Palliative Care Clinic follow up with Dr Howell after discharge. We also discussed [facility]'s Enhanced Community Care Management (ECCM) program thathelps manage chronic conditions and maximize independence.ECCM is available to [facility] members providing more frequent check-insto help pt/family understand diagnostics and disease progressiion, manage appointments and medications; symptom management; navigate healthcare and create advance care plans. Rosa shared that this program "sounds like exactly what we need right now". Supplied Rosa with pamphlet with contact information for ECCM program.. Plan as above History of Present Illness Reason for Consultation: goals of care Requesting Physician: Em Rodrigez MD, FCCP Attending Physician: Ayaz Swift MD History of Present Illness Mr Becerra 79-year-old male with PMHx significant for CAD s/p CABG x 2 with a FOLEY to the LAD and vein graft to the OM with follow-up STEMI and collapse of the vein graft [PCI to the LAD and RCA in March 2019 revealing a patent FOLEY], history of nonsustained ventricular tachycardia, ischemic cardiomyopathy [EF = 30-35% - May 2025], HFrEF s/p BIV AICD in July 2021, asymptomatic bilateral carotid artery stenosis, history of CVA at age 30 of unclear etiology with residual R-sided facial droop and R hand weakness/sensory deficit, PAD with failed PTCA of the arteries of his hip under questionable circumstances at an outside facility, PAF s/p PABLO/DCCV in February 2021, DMII, no flow in bilateral middle cerebral arteries with collateralization suggestive of chronic high-grade stenosis and/or occlusion, intermittent LBBB, labile HTN [with prior recommendations from neurology to keep BP on higher side to improve cerebral blood flow], vascular dementia, CKD stage IIIa, postgastric surgery syndrome and EDGAR who presented to the ED from home on 06/30 with HOYT, orthopnea and weight gain of 11lb since being discharged from our service on 06/25/25. Patient was admitted from 06/23/25-06/25/25 with acute on chronic HFrEF, ambulatory dysfunction in the setting of progressive vascular dementia vs possible undiagnosed CVA within previous month. TTE, 06/24/25: EF 30-35%, LV wall thickness mildly increased in non-infarct segments, mildly dilated LV, large inferoposterior wall motion abnormality with scar, grade II DD consistent with elevated LA pressure, mild-mod MR, trace TR. Allergies Allergy/AdvReac Type Severity Reaction Status Date / Time No Known Allergies Allergy Verified 05/04/24 00:08 Home Medications Medication Instructions Recorded Confirmed Type isosorbide mononitrate 30 mg 30 mg PO QAM #0 tabs 08/12/14 06/29/25 History tablet,extended release 24 hr nitroglycerin 0.4 mg sublingual 0.4 mg sublingual Q5M PRN Chest 08/15/17 06/29/25 History tablet Pain ##0 rosuvastatin 40 mg tablet 40 mg PO QAM 03/30/19 06/29/25 History tamsulosin 0.4 mg capsule 0.4 mg PO BID 03/30/19 06/29/25 History clopidogrel 75 mg tablet 75 mg PO QAM 03/15/21 06/29/25 History montelukast 10 mg tablet 10 mg PO QAM 03/15/21 06/29/25 History ezetimibe 10 mg tablet 10 mg PO QAM 07/29/21 06/29/25 History pregabalin 75 mg capsule 75 mg PO QID 05/10/22 06/29/25 History ascorbic acid (vitamin C) 1,000 mg 1 g PO HS 10/18/23 06/29/25 History tablet (Vitamin C) cyanocobalamin (vitamin B-12) 500 mcg PO HS 10/18/23 06/29/25 History 1,000 mcg tablet (Vitamin B-12) finasteride 5 mg tablet (Proscar) 5 mg PO DAILY 10/18/23 06/29/25 History furosemide 20 mg tablet 20 mg PO QAM 06/23/25 06/29/25 History apixaban 5 mg tablet (Eliquis) 5 mg PO BID #60 tabs 06/25/25 06/29/25 Rx metoprolol succinate 50 mg 50 mg PO QAM #30 tabs 06/25/25 06/29/25 Rx tablet,extended release 24 hr sacubitril 24 mg-valsartan 26 mg 1 tab PO BID #60 tabs 06/25/25 06/29/25 Rx tablet (Entresto) empagliflozin 25 mg tablet 25 mg PO QAM 06/29/25 06/29/25 History (Jardiance) spironolactone 25 mg tablet 25 mg PO QAM 06/29/25 06/29/25 History Patient History Medical History Orthostasis Acute kidney injury superimposed on CKD Acute hypokalemia Elevated troponin Pneumonia Sepsis Presence of combination internal cardiac defibrillator (ICD) and pacemaker 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 CKD (chronic kidney disease), stage III Cardiomyopathy, ischemic CKD (chronic kidney disease) stage 3, GFR 30-59 ml/min Elevated troponin LBBB (left bundle branch block) Atrial fibrillation with rapid ventricular response Stenosis of left internal carotid artery Ischemic cardiomyopathy DVT prophylaxis Paroxysmal A-fib CVA (cerebral vascular accident) GERD (gastroesophageal reflux disease) Diabetes Hypertension Coronary artery disease 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 Diabetes mellitus, type 2 Surgical History History of coronary artery stent placement LAD and RCA 2019 S/P CABG x 2 Family History Mother Stroke Denies family history of Crohn's disease Colorectal cancer Ulcerative colitis Social History Smoking Status: Former smoker Tobacco Type: Cigarettes Second Hand Exposure: No; Do You Dip or Chew Tobacco: No; Hx Alcohol Use: Yes Alcohol type: beer Hx Substance Use: No Preferred Language: Iraqi Communication Ability: Effective Communication Ability Comment: [phone] Application Packager Required: No Beliefs That Will Affect Care: Spiritual marital status: Current Living Situation: Spouse current occupation: Retired Feels Safe at Home: Yes Assistive Devices: None Review of Systems Review of Systems: All systems reviewed & are unremarkable except as noted in HPI & below Physical Exam Constitutional: WD/WN, vitals as above + physical limitations and + overweight Eyes: PERRL and normal accommodation Neck: trachea midline, no thyromegaly Respiratory: normal respiratory effort, lungs clear to auscultation Auscultation: lungs clear to auscultation bilaterally and + diminished lung sounds Cardiovascular: RRR, no murmur, no edema Rate/Rhythm: regular rhythm Chest (Breasts): Chest: + pacemaker Gastrointestinal (Abdomen): normal bowel sounds, soft, nontender, no hepatosplenomegaly Musculoskeletal: no cyanosis or clubbing, extremities motor strength 5/5 Skin: no rashes, warm and dry Neurologic: At baseline with speech and facial palsy. Residual right sided weakness at baseline Psychiatric: A+Ox3, euthymic affect Results & Data Vital Signs (Past 12 Hours) Vital Signs Temp Pulse Resp BP Pulse Ox O2 Del Method 07/01/25 06:00 78 19 138/67 95 Room Air 07/01/25 05:06 72 20 117/62 93 Room Air 07/01/25 04:00 36.5 C 88 18 109/53 L 97 Room Air 07/01/25 03:03 96 H 15 105/54 L 97 Room Air 07/01/25 02:07 86 20 95/49 L 96 Room Air 07/01/25 01:01 71 15 109/79 97 Room Air 07/01/25 00:17 83 15 155/70 H 97 Room Air Laboratory Results Abnormal lab results 07/01/25 07/01/25 07/01/25 Range/Units 04:33 16:13 20:42 Chloride (98-107) mmol/L BUN (6-23) mg/dl Creatinine (0.6-1.4) mg/dl BUN/Creatinine Ratio (10-20) Glucose (70-99(Fasting)) mg/dl POC Glucose 114 H 107 H (70-99) mg/dl TSH 5.337 H (0.300-4.500) uIu/ml 07/02/25 07/02/25 Range/Units 05:32 07:19 Chloride 110 H (98-107) mmol/L BUN 63 H (6-23) mg/dl Creatinine 2.04 H (0.6-1.4) mg/dl BUN/Creatinine Ratio 30.9 H (10-20) Glucose 109 H (70-99(Fasting)) mg/dl POC Glucose 113 H (70-99) mg/dl TSH (0.300-4.500) uIu/ml Diagnostic Findings Abdomen Ultrasound 06/29/25 14:48 ULTRASOUND ASCITES CHECK CLINICAL HISTORY: Ascites check. COMPARISON STUDY: Abdominal CT dated 09/11/2014. FINDINGS: Real-time grayscale sonography of all 4 quadrants of the abdomen was performed to assess for abdominal ascites. No abdominal ascites is identified. IMPRESSION: No abdominal ascites is identified. Electronically signed by: Linden Thacker M.D. 06/29/2025 3:[address] 06/30/25 10:54 CT head/brain wo con CLINICAL HISTORY: 79 years-old Male with AMS. Acutely altered mental status TECHNIQUE: Multiple axial CT images of the head were obtained without contrast. A dose lowering technique was utilized adhering to the principles of ALARA. CT DOSE: 873.7 mGy.cm COMPARISON: Head CT 06/23/2025, brain MRI 05/11/2022 FINDINGS: No acute intracranial hemorrhage, midline shift, intracranial mass, hydrocephalus, territorial ischemia or abnormal extra-axial collection. Scattered areas of encephalomalacia related to chronic infarcts in the bilateral cerebral hemispheres an right cerebellum are redemonstrated. Involutional changes with chronic microvascular ischemic disease. Prior bilateral lens repair. The calvarium is intact. The paranasal sinuses, mastoid air cells, and middle ear cavities are clear. IMPRESSION: No acute intracranial abnormality. ACT 112: Negative or not required by law. The above report was generated using voice recognition software. It may contain grammatical, syntax or spelling errors. Electronically signed by: Don Dennis M.D. 06/30/2025 11:32 AM Chest X-Ray 06/30/25 16:11 EXAM: Portable AP chest radiograph TECHNIQUE: AP portable radiograph of the chest was obtained. INDICATION: Shortness of breath Comparison: Chest radiograph June 23, 2025. FINDINGS: LINES and TUBES: Left-sided cardiac ICD again seen with leads projecting over the right atrium and the right ventricle of the heart. CARDIOVASCULAR: Cardiac silhouette is stably enlarged in size with redemonstrated post-CABG changes. LUNGS/PLEURA: No focal consolidation identified. Mild interstitial pulmonary edema is similar to the previous. Small pleural fluids are suggested. No discernible pneumothorax. OSSEOUS/OTHER: No displaced acute osseous process identified. Median sternotomy wires, several of which are fractured. IMPRESSION: Similar congestive changes of the cardiovascular system compared to the previous. Electronically signed by Bryce Curran 06-30-2025 5:14 PM Abdomen Ultrasound 06/29/25 14:48 ULTRASOUND ASCITES CHECK CLINICAL HISTORY: Ascites check. COMPARISON STUDY: Abdominal CT dated 09/11/2014. FINDINGS: Real-time grayscale sonography of all 4 quadrants of the abdomen was performed to assess for abdominal ascites. No abdominal ascites is identified. IMPRESSION: No abdominal ascites is identified. Electronically signed by: Linden Thacker M.D. 06/29/2025 3:[address] 06/30/25 10:54 CT head/brain wo con CLINICAL HISTORY: 79 years-old Male with AMS. Acutely altered mental status TECHNIQUE: Multiple axial CT images of the head were obtained without contrast. A dose lowering technique was utilized adhering to the principles of ALARA. CT DOSE: 873.7 mGy.cm COMPARISON: Head CT 06/23/2025, brain MRI 05/11/2022 FINDINGS: No acute intracranial hemorrhage, midline shift, intracranial mass, hydrocephalus, territorial ischemia or abnormal extra-axial collection. Scattered areas of encephalomalacia related to chronic infarcts in the bilateral cerebral hemispheres an right cerebellum are redemonstrated. Involutional changes with chronic microvascular ischemic disease. Prior bilateral lens repair. The calvarium is intact. The paranasal sinuses, mastoid air cells, and middle ear cavities are clear. IMPRESSION: No acute intracranial abnormality. ACT 112: Negative or not required by law. The above report was generated using voice recognition software. It may contain grammatical, syntax or spelling errors. Electronically signed by: Don Dennis M.D. 06/30/2025 11:32 AM Chest X-Ray 06/30/25 16:11 EXAM: Portable AP chest radiograph TECHNIQUE: AP portable radiograph of the chest was obtained. INDICATION: Shortness of breath Comparison: Chest radiograph June 23, 2025. FINDINGS: LINES and TUBES: Left-sided cardiac ICD again seen with leads projecting over the right atrium and the right ventricle of the heart. CARDIOVASCULAR: Cardiac silhouette is stably enlarged in size with redemonstrated post-CABG changes. LUNGS/PLEURA: No focal consolidation identified. Mild interstitial pulmonary edema is similar to the previous. Small pleural fluids are suggested. No discernible pneumothorax. OSSEOUS/OTHER: No displaced acute osseous process identified. Median sternotomy wires, several of which are fractured. IMPRESSION: Similar congestive changes of the cardiovascular system compared to the previous. Electronically signed by Bryce Curran 06-30-2025 5:14 PM Medications Administered Current Inpatient Medications Acetaminophen (Acetaminophen 325 Mg Tab) 650 mg PO Q4H PRN PRN Reason: Pain or Fever Stop: 07/29/25 14:16 Amiodarone HCl (Amiodarone 200 Mg Tab) 200 mg PO BIDM [facility] Stop: 07/31/25 16:59 Last Admin: 07/02/25 08:26 Dose: 200 mg Apixaban (Apixaban 5 Mg Tablet) 5 mg PO BID [facility] Stop: 07/29/25 20:59 Last Admin: 07/02/25 08:26 Dose: 5 mg Clopidogrel Bisulfate (Clopidogrel Bisulfate 75 Mg Tab) 75 mg PO QAM [facility] Stop: 07/30/25 08:59 Last Admin: 07/02/25 08:26 Dose: 75 mg Cyanocobalamin (Cyanocobalamin (B-12) 500 Mcg Tablet) 500 mcg PO HS [facility] Stop: 07/29/25 20:59 Last Admin: 07/01/25 19:59 Dose: 500 mcg Dextrose (Dextrose 50% 50 Ml Syringe) 25 - 50 ml IV UD PRN; Protocol PRN Reason: Hypoglycemia Protocol Stop: 07/29/25 15:07 Ezetimibe (Ezetimibe 10 Mg Tab) 10 mg PO QAM [facility] Stop: 07/30/25 08:59 Last Admin: 07/02/25 08:26 Dose: 10 mg Empagliflozin (Empagliflozin 25 Mg Tab) 25 mg PO QAM [facility] Stop: 07/30/25 08:59 Last Admin: 06/30/25 08:08 Dose: 25 mg Finasteride (Finasteride 5 Mg Tab) 5 mg PO DAILY [facility] Stop: 07/30/25 08:59 Last Admin: 07/02/25 08:26 Dose: 5 mg Furosemide (Furosemide Inj 20 Mg/2 Ml Vial) 20 mg IV BID17 [facility] Stop: 07/29/25 16:59 Last Admin: 06/30/25 08:09 Dose: 20 mg Glucagon (Glucagon For Inj 1 Mg Vial) 1 mg SQ UD PRN; Protocol PRN Reason: Hypoglycemia Protocol Stop: 07/29/25 15:07 Glucose (Glucose 40% Gel 15 Gm Tube) 15 - 30 gm PO UD PRN; Protocol PRN Reason: Hypoglycemia Protocol Stop: 07/29/25 15:07 Glucose (Glucose 10 Tab/Tube) 4 - 8 tab PO UD PRN; Protocol PRN Reason: Hypoglycemia Protocol Stop: 07/29/25 15:07 Insulin Aspart (Insulin Aspart Per Unit Charge) 0 units SC ACHS [facility] Stop: 07/29/25 16:29 Last Admin: 07/01/25 20:43 Dose: Not Given Isosorbide Mononitrate (Isosorbide [place] Extended Rel 30 Mg Tabcr) 30 mg PO QAM [facility] Stop: 07/30/25 08:59 Last Admin: 06/30/25 08:09 Dose: 30 mg Melatonin (Melatonin 3 Mg Tab) 6 mg PO HS PRN PRN Reason: Sleep Stop: 07/31/25 20:46 Last Admin: 07/01/25 21:35 Dose: 6 mg Metoprolol Succinate (Metoprolol Succ 25mg Ext Rel Tab) 25 mg PO QAM [facility] Stop: 07/31/25 08:59 Last Admin: 07/02/25 08:26 Dose: 25 mg Miscellaneous (Carbohydrates For Hypoglycemia ) 15 - 30 gm PO UD PRN PRN Reason: Hypoglycemia Protocol Stop: 07/29/25 15:07 Montelukast Sodium (Montelukast Sodium 10 Mg Tablet) 10 mg PO QAM [facility] Stop: 07/30/25 08:59 Last Admin: 07/02/25 08:26 Dose: 10 mg Ondansetron HCl (Ondansetron Inj 2 Mg/Ml 2 Ml Vial) 4 mg IV Q6H PRN PRN Reason: Nausea And Vomiting Stop: 07/29/25 20:46 Polyethylene Glycol (Polyethylene (Miralax) 17 Gm Pack) 17 gm PO DAILY PRN PRN Reason: Constipation Stop: 07/29/25 14:16 Pregabalin (Pregabalin 75 Mg Cap) 75 mg PO QID [facility] Stop: 07/29/25 16:59 Last Admin: 07/01/25 19:58 Dose: 75 mg Rosuvastatin Calcium (Rosuvastatin Calcium 20 Mg Tab) 40 mg PO QAM [facility] Stop: 07/30/25 08:59 Last Admin: 07/02/25 08:26 Dose: 40 mg Sacubitril/Valsartan (Valsartan/Sacubitril 26/24mg Tab) 1 tab PO BID [facility] Stop: 07/29/25 20:59 Last Admin: 06/30/25 08:07 Dose: 1 tab Tamsulosin HCl (Tamsulosin Hcl 0.4 Mg Cap) 0.4 mg PO BID [facility] Stop: 07/29/25 20:59 Last Admin: 07/02/25 08:26 Dose: 0.4 mg PG Care Time/CCT Total # of Minutes Spent Total Time Spent with Patient: Total time spent is greater than 50% in coordination of care (as documented) at patient's floor/unit and/or counseling patient: Advanced Care Planning 10074 Advanced Care Planning 30 [place] [address] IN/OBS CONSULT LVL 4,60M Patient Type New History Expanded Problem Focused Exam Expanded Problem Focused Medical Decision Making Moderate Complexity Diagnoses Palliative care by specialist Z51.5 Counseling regarding advanced directives and goals of care Z71.89 Advanced care planning/counseling discussion Z71.89 Additional Codes Advanced Care Planning - 21444 Advanced Care Planning 30 Min: 51801 Advanced Care Planning 30 Min ([id number])
[2025-07-01] MEDS: ALBUMIN 5% 250 ML IV ONE (12:55)
--- NOTE | 2025-07-01 13:32 | Hospitalist Progress Note ---
Date of Service July 01, 2025 Assessment & Plan (1) Acute on chronic heart failure with reduced ejection fraction (HFrEF, <= 40%): (2) Ischemic cardiomyopathy: (3) Vascular dementia: (4) History of CVA (cerebrovascular accident): Plan Patient is a 79-year-old male with PMHx significant for CAD s/p CABG x 2 with a FOLEY to the LAD and vein graft to the OM with follow-up STEMI and collapse of the vein graft [PCI to the LAD and RCA in March 2019 revealing a patent FOLEY], history of nonsustained ventricular tachycardia, ischemic cardiomyopathy [EF = 30-35% - May 2025], HFrEF s/p BIV AICD in July 2021, asymptomatic bilateral carotid artery stenosis, history of CVA at age 30 of unclear etiology with residual R-sided facial droop and R hand weakness/sensory deficit, PAD with failed PTCA of the arteries of his hip under questionable circumstances at an outside facility, PAF s/p PABLO/DCCV in February 2021, DMII, no flow in bilateral middle cerebral arteries with collateralization suggestive of chronic high-grade stenosis and/or occlusion, intermittent LBBB, labile HTN [with prior recommendations from neurology to keep BP on higher side to improve cerebral blood flow], vascular dementia, CKD stage IIIa, postgastric surgery syndrome and EDGAR who presented to the ED from home with complaints of HOYT, orthopnea and weight gain of 11lb since being discharged from our service on 06/25/25. Patient was admitted from 06/23/25-06/25/25 with acute on chronic HFrEF, ambulatory dysfunction in the setting of progressive vascular dementia vs possible undiagnosed CVA within the past month. Following adjustments made to his medication list: metoprolol succinate increased to 50mg daily [re: therapeutic cardiac resynchronization pacing less than 90% of the time likely in part due to frequent PVCs on recent device check], Aldactone increased to 25mg daily, started on Entresto BID, started on Jardiance, restarted on Eliquis [unclear reasoning for stopping this in the first place]. TTE, 06/24/25: EF 30-35%, LV wall thickness mildly increased in non-infarct segments, mildly dilated LV, large inferoposterior wall motion abnormality with scar, grade II DD consistent with elevated LA pressure, mild-mod MR, trace TR. #Acute on chronic HFrEF #Ischemic cardiomyopathy #History of NSVT s/p BIV AICD in July 2021 #Chronic LBBB #CAD s/p CABG x 2 with a FOLEY to the LAD and vein graft to the OM with follow-up STEMI and collapse of the vein graft, PCI to the LAD and RCA in March 2019 revealing a patent FOLEY HS-troponin x 1 neg, BNP 474 Wt at presentation 126.3kg; wt previously 120.2kg on 06/25/25 = 6.1kg wt gain CXR: evidence of congestive failure, no large pleural effusion Home meds: Lasix 20mg, Aldactone 25mg Cardio on board: complex due to orthostatic syncope - meds are held due to low BP, appreciate cardio help w/ GDMT optimization. Strict I&Os, daily wts (standing if able), tele monitoring Continue Plavix, statin, Zetia #CKD stage IIIa Cr 1.81 at presentation, previously Cr 1.63 on 06/25/25 Difficult to determine baseline Cr given recent med changes, lapses in OP monitoring Doubt MCKENZIE, continue to monitor Cr slight downtrend today. #Vascular dementia --> progressive memory deficits x past 1-2 months #Recent functional decline/ambulatory dysfunction with shuffling gait Evaluated by neuro last admission: suspect pt may have experienced a stroke over the past month -CT head noted area of encephalomalacia/edema peripherally in right cerebellar hemisphere consistent with area of ischemic infarction of uncertain chronicity -MRI brain could not be obtained at this time as he has a Medtronic biventricular pacemaker/AICD with left bundle lead which was placed in 2021 and having the left bundle lead plugged into the left ventricular port of the device is considered off label and therefore MRI brain cannot be performed at [facility] due to current radiology policy -Need to ensure pt is arranged for OP MRI brain study - will need to be completed at [facility] -Need to ensure OP neuro f/u in 4-6wks Had stroke alert in AM of 06/30, see communication note 06/30, likely orthostatic syncope contributory. Telestroke evaled, Neuro evaled - recs is neuroendovascular surgery eval as OP to address his left ICA stenosis. slow transition during change in position, compression stocking. Educated pt and his family the need for slow transition during change in position. #Bilateral carotid artery stenosis CTA head and neck on 06/24/25 showed 90% stenosis of proximal left ICA due to extensive plaque, 40% stenosis of proximal right ICA, mod to severe stenosis of intracranial left Vertebral artery and moderate stenosis of intracranial right vertebral artery, no significant flow seen in proximal middle cerebral arteries bilaterally -Need to arrange OP vascular surgery eval Continue Plavix, statin, Zetia #PAF s/p PABLO/DCCV in February 2021: Continue BB, Eliquis #DMII: Hgb A1c 6.7% as of 02/2025, 6.9 this admission. Previously on metformin --> stopped last admission 12/27 starting Jardiance. Continue Jardiance when able. SSI protocol while inpt, follow BSG checks ACHS DVT Prophylaxis: Eliquis Disposition: currently being observed in icu due to low bp. Admission and Anticipated Discharge Date Admission Date: June 30, 2025 Subjective Patient was seen and examined at bedside. Patient was lying propped up in bed, on room air, NAD, resting comfortably. Pt's at bedside who was also updated on plan of care. Patient reports eating okay/moving bowels okay/no chest pain or shortness of breath now. Pt reports some lightheadedness but denies dizziness, appears BP is still soft. Physical Exam Physical Exam: Constitutional: well developed and + obese; not in d istress Eyes: no conjunctival ab normality ENMT: Ears: no hearing i mpairment and no e xternal ear abnorm ality Mouth: oral mucous membranes not dry (chronic R -sided facial droo p s/p CVA at age [age] - unchanged) Neck: trachea midline, n o thyromegaly Respiratory: normal respiratory effort and able t o speak in complet e sentences; no re spiratory distress and no cough Aus cultation: + crack les x bb; no wheez es Cardiovascular: Rate/Rhythm: regul ar rate and regula r rhythm Heart So unds: no murmur E xtremities: no ped al edema Gastrointestinal ( Abdomen): Inspection/Auscult ation: abdomen nor mal to inspection and normal bowel s ounds; abdomen not distended Percus xin/Palpation: ab domen soft; abdome n nontender Musculoskeletal: Extremities: extre mities normal to i nspection and stre ngth 5/5 throughou t Skin: no rashes, warm an d dry Neurologic: CN's II-XI intact bilaterally (gross ly - not formally tested) Psychiatric: Orientation: alert and oriented x 3 Results & Data Results & Data Vital Signs (Past 12 Hours) Vital Signs Temp Pulse Resp BP Pulse Ox O2 Del Method 07/01/25 06:00 78 19 138/67 95 Room Air 07/01/25 05:06 72 20 117/62 93 Room Air 07/01/25 04:00 36.5 C 88 18 109/53 L 97 Room Air 07/01/25 03:03 96 H 15 105/54 L 97 Room Air 07/01/25 02:07 86 20 95/49 L 96 Room Air (3) Vascular dementia Dementia severity: unspecified severity Dementia behavioral or psychological symptom: unspecified whether behavioral, psychotic, or mood disturbance or anx iety Qualified Code(s): F01.50 - Vascular dementia, unspecified severity, without behavioral disturbance, psychotic disturbance, mood disturbance, and anxiety
[2025-07-01] MEDS: AMIODARONE 200 MG TAB PO SCH (17:17)
[2025-07-01] MEDS: MELATONIN 3 MG TAB PO PRN (21:35)
[2025-07-02 06:59] LABS: Anion Gap 6.0 (3-11); Blood Urea Nitrogen 63.0 mg/dl (6-23); Calcium 9.0 mg/dl (8.6-10.3); Carbon Dioxide 24.0 mmol/L (21-32); Chloride 110.0 mmol/L (98-107); Creatinine Clr Calc Pharmacy 42.5 ml/min; Glucose 109.0 mg/dl (70-99(Fasting)); Potassium 4.9 mmol/L (3.5-5.1); Sodium 140.0 mmol/L (136-145)
--- NOTE | 2025-07-02 10:08 | Cardiology Progress Note ---
Date of Service July 02, 2025 Assessment & Plan (1) History of CVA (cerebrovascular accident): (2) Ischemic cardiomyopathy: (3) NSVT (nonsustained ventricular tachycardia): (4) HTN (hypertension): (5) Acute on chronic heart failure with reduced ejection fraction (HFrEF, <= 40%): Plan (1)HFrEF (2)HTN (3)Pacemaker/AICD (4)CVA/ Vascular dementia (5)Ischemic cardiomyopathy HFrEF -Toprol XL to 25 mg daily -Continue education on low sodium diet and fluid restriction. -Continue to hold Jardiance, Lasix, Imdur and Entresto -Monitor I/O and weight closely HTN -Permissive HTN -BP's have been stable no hypotension noted overnight or this am -Metoprolol 25 mg daily. Pacemaker/AICD- frequent PVCs/ NSVT -Continue Metoprolol XL 25 mg daily -Amiodarone 200mg BID -Follow with pacer clinic as scheduled -Paced on Tele with some PVC's CVA/ Vascular dementia -Continue, Plavix and Eliquis -Obtain MRI, awaiting scheduling -Neurology consulted Ischemic cardiomyopathy/HLD - Metoprolol XL 25 daily -Continue rosuvastatin,Zetia -Continue Plavix, and Eliquis I spent a total of 30 minutes on the date of service in preparation, delivery, and documentation of the care provided to this patient, excluding any time spent in the performance of separately billed services. Steven MAGAÑA Department of Cardiology, [facility] Admission and Anticipated Discharge Date Admission Date: June 30, 2025 Supervising Physician Co-Signing Physician Notes Attending attestation: Case reviewed with the advanced practitioner. I have personally performed a history and physical examination on the patient. I have reviewed the advanced practitioner's documentation on the date of service referenced in note, and I agree with, and take responsibility for the plan of care. Subjective: Patient's mentation is at his recent baseline. Exam: Cardiovascular: Regular rhythm with ectopy, no edema Data: Telemetry reveals sinus rhythm, rate has trended up to 90s, still with occasional PVCs Impression/ Plan: 79-year-old male with longstanding history of coronary heart disease, ischemic cardiomyopathy, CABG x 2 with FOLEY to LAD and vein graft to the OM in the year 1999, PCI to the LAD and RCA in 2019. Nonsustained ventricular tachycardia, intermittent left bundle branch block for which patient underwent implantation of a Medtronic biventricular AICD in July, with left bundle lead.Left ventricular ejection fraction 30-35% on echo this admission, unchanged compared to previous with grade II diastolic dysfunction, mild to moderate mitral regurgitation, inferior/posterior akinesis/scar. Patient also has history of recurrent stroke episodes. First of which was at least [address] scan with large area of posterior encephalomalacia. This is the patient's second recent admission. Initially admitted 06/23/2025 with progressive decline in mentation, strokelike symptoms. CT at that time revealed what look like new stroke compared to the previous. He was subsequently readmitted several days later with concerns of volume overload. Has longstanding history of middle cerebral artery territory stenosis on CTA and past recommendations had been for permissive hypertension to allow for cerebral perfusion. -In effort to optimize the patient's volume status, patient developed hypotension on multiple medications as well as MCKENZIE. Medications held, blood pressure now improved, and mentation has improved back to his recent normal (albeit worse than it was a year ago per spouse). -Continue metoprolol succinate 25 mg daily. Amiodarone 200 mg twice daily which the patient had been on in the past, initiated post PVC suppression to allow for therapeutic biventricular pacing. -Jardiance 25 mg daily on hold) if reinitiated would restart at 10 mg dose). -Isosorbide mononitrate, Entresto, furosemide on hold. -Baseline diuretic dose had only been furosemide 20 mg daily. -Continue Eliquis and clopidogrel for vascular dementia, history of PAF --As medications reinitiated, would first add back Jardiance 10 mg daily. --MRI brain not performed at this institution due to configuration of his biventricular pacemaker with left bundle lead plugged into the coronary sinus port. This cannot be done at [facility] or [facility] either. I have already placed an order in his outpatient chart for MRI at [facility] as an outpatient. I spent a total of 25 minutes coordinating, documenting, and providing care for this patient excluding time spent in the performance of separately billed services or time spent by another provider. Urbano Gann DO Subjective Patient seen this morning for follow-up on tele with at bedside. Patient had been in the ICU Saturday evening and for hypotension with strokelike symptoms due to hypoperfusion and medication adjustments. Patient was started on Amiodarone BID yesterday for rhythm control and Metoprolol was reduced to 25 mg. Blood pressures have been stable and he has been a paced with PVCs on the monitor. Patient reports no symptoms at this time. Denies lightheadedness, dizziness, chest pain, shortness of breath, palpitations. States that he feels fine and much improved from yesterday and the day before. Review of Systems Review of Systems: All systems reviewed & are unremarkable except as noted in HPI & below Physical Exam Constitutional: WD/WN, vitals as above + physical limitations and + overweight Eyes: PERRL and normal accommodation Neck: trachea midline, no thyromegaly Respiratory: normal respiratory effort, lungs clear to auscultation Auscultation: lungs clear to auscultation bilaterally and + diminished lung sounds Cardiovascular: RRR, no murmur, no edema Rate/Rhythm: regular rhythm Chest (Breasts): Chest: + pacemaker Gastrointestinal (Abdomen): normal bowel sounds, soft, nontender, no hepatosplenomegaly Musculoskeletal: no cyanosis or clubbing, extremities motor strength 5/5 Skin: no rashes, warm and dry Neurologic: At baseline with speech and facial palsy. Residual right sided weakness at baseline Psychiatric: A+Ox3, euthymic affect Results & Data Vital Signs (Past 12 Hours) Vital Signs Temp Pulse Pulse Resp BP Pulse Ox O2 Del Method 07/02/25 07:44 36.5 C 66 18 117/76 96 Room Air 07/02/25 07:21 74 07/02/25 02:53 36.9 C 60 20 136/72 96 Room Air 07/01/25 22:47 36.9 C 59 L 18 112/71 99 Room Air 07/01/25 22:41 67 Laboratory Results Current Inpatient Medicatio Comprehensive Metabolic Panel 07/02/25 Range/Units 05:32 Sodium 140 (136-145) mmol/L Potassium 4.9 (3.5-5.1) mmol/L Chloride 110 H (98-107) mmol/L Carbon Dioxide 24 (21-32) mmol/L BUN 63 H (6-23) mg/dl Creatinine 2.04 H (0.6-1.4) mg/dl Glucose 109 H (70-99(Fasting)) mg/dl Calcium 9.0 (8.6-10.3) mg/dl Intake and Output 07/01/25 07/02/25 07/02/25 22:59 06:59 14:59 Intake Total 1370 / 1620 Output Total Balance 1369 / 1619 Intake: Oral 1370 / 1370 Output: # Bowel Movements Other: # Unmeasured Voids 1 Weight 120.9 kg Weight Measurement [facility] Medications Administered Current Inpatient Medications Acetaminophen (Acetaminophen 325 Mg Tab) 650 mg PO Q4H PRN PRN Reason: Pain or Fever Stop: 07/29/25 14:16 Amiodarone HCl (Amiodarone 200 Mg Tab) 200 mg PO BIDM [facility] Stop: 07/31/25 16:59 Last Admin: 07/02/25 08:26 Dose: 200 mg Apixaban (Apixaban 5 Mg Tablet) 5 mg PO BID GITA Stop: 07/29/25 20:59 Last Admin: 07/02/25 08:26 Dose: 5 mg Clopidogrel Bisulfate (Clopidogrel Bisulfate 75 Mg Tab) 75 mg PO QAM GITA Stop: 07/30/25 08:59 Last Admin: 07/02/25 08:26 Dose: 75 mg Cyanocobalamin (Cyanocobalamin (B-12) 500 Mcg Tablet) 500 mcg PO HS [facility] Stop: 07/29/25 20:59 Last Admin: 07/01/25 19:59 Dose: 500 mcg Dextrose (Dextrose 50% 50 Ml Syringe) 25 - 50 ml IV UD PRN; Protocol PRN Reason: Hypoglycemia Protocol Stop: 07/29/25 15:07 Ezetimibe (Ezetimibe 10 Mg Tab) 10 mg PO QAM GITA Stop: 07/30/25 08:59 Last Admin: 07/02/25 08:26 Dose: 10 mg Empagliflozin (Empagliflozin 25 Mg Tab) 25 mg PO QAM GITA Stop: 07/30/25 08:59 Last Admin: 06/30/25 08:08 Dose: 25 mg Finasteride (Finasteride 5 Mg Tab) 5 mg PO DAILY GITA Stop: 07/30/25 08:59 Last Admin: 07/02/25 08:26 Dose: 5 mg Furosemide (Furosemide Inj 20 Mg/2 Ml Vial) 20 mg IV [id number] GITA Stop: 07/29/25 16:59 Last Admin: 06/30/25 08:09 Dose: 20 mg Glucagon (Glucagon For Inj 1 Mg Vial) 1 mg SQ UD PRN; Protocol PRN Reason: Hypoglycemia Protocol Stop: 07/29/25 15:07 Glucose (Glucose 40% Gel 15 Gm Tube) 15 - 30 gm PO UD PRN; Protocol PRN Reason: Hypoglycemia Protocol Stop: 07/29/25 15:07 Glucose (Glucose 10 Tab/Tube) 4 - 8 tab PO UD PRN; Protocol PRN Reason: Hypoglycemia Protocol Stop: 07/29/25 15:07 Insulin Aspart (Insulin Aspart Per Unit Charge) 0 units SC [facility] Stop: 07/29/25 16:29 Last Admin: 07/02/25 08:32 Dose: 9 units Isosorbide Mononitrate (Isosorbide [place] Extended Rel 30 Mg Tabcr) [facility] Stop: 07/30/25 08:59 Last Admin: 06/30/25 08:09 Dose: 30 mg Melatonin (Melatonin 3 Mg Tab) 6 mg PO HS PRN PRN Reason: Sleep Stop: 07/31/25 20:46 Last Admin: 07/01/25 21:35 Dose: 6 mg Metoprolol Succinate (Metoprolol Succ 25mg Ext Rel Tab) 25 mg PO QAM [facility] Stop: 07/31/25 08:59 Last Admin: 07/02/25 08:26 Dose: 25 mg Miscellaneous (Carbohydrates For Hypoglycemia ) 15 - 30 gm PO UD PRN PRN Reason: Hypoglycemia Protocol Stop: 07/29/25 15:07 Montelukast Sodium (Montelukast Sodium 10 Mg Tablet) [facility] Stop: 07/30/25 08:59 Last Admin: 07/02/25 08:26 Dose: 10 mg Ondansetron HCl (Ondansetron Inj 2 Mg/Ml 2 Ml Vial) 4 mg IV Q6H PRN PRN Reason: Nausea And Vomiting Stop: 07/29/25 20:46 Polyethylene Glycol (Polyethylene (Miralax) 17 Gm Pack) 17 gm PO DAILY PRN PRN Reason: Constipation Stop: 07/29/25 14:16 Pregabalin (Pregabalin 75 Mg Cap) 75 mg PO QID [facility] Stop: 07/29/25 16:59 Last Admin: 07/02/25 08:32 Dose: 75 mg Rosuvastatin Calcium (Rosuvastatin Calcium 20 Mg Tab) 40 mg PO QAM [facility] Stop: 07/30/25 08:59 Last Admin: 07/02/25 08:26 Dose: 40 mg Sacubitril/Valsartan (Valsartan/Sacubitril 26/24mg Tab) 1 tab PO BID [facility] Stop: 07/29/25 20:59 Last Admin: 06/30/25 08:07 Dose: 1 tab Tamsulosin HCl (Tamsulosin Hcl 0.4 Mg Cap) 0.4 mg PO BID [facility] Stop: 07/29/25 20:59 Last Admin: 07/02/25 08:26 Dose: 0.4 mg PG Care Time/CCT Total # of Minutes Spent Total Time Spent: 30 Total Time Spent with Patient: Total time spent is greater than 50% in coordination of care (as documented) at patient's floor/unit and/or counseling patient: Coding Level of Care Code 61772 SUB INP/OBS CARE 3/50MIN Diagnoses History of CVA (cerebrovascular accident) Z86.73 Ischemic cardiomyopathy I25.5 NSVT (nonsustained ventricular tachycardia) I47.29 HTN (hypertension) I10 Acute on chronic heart failure with reduced ejection fraction (HFrEF, <= 40%) I50.23 Time Spent (min) 50 Comment 30 minutes spent by Monica Campos, [address] Gann
--- NOTE | 2025-07-02 15:12 | Hospitalist Progress Note ---
Date of Service July 02, 2025 Assessment & Plan (1) Acute on chronic heart failure with reduced ejection fraction (HFrEF, <= 40%): (2) Ischemic cardiomyopathy: (3) Vascular dementia: (4) History of CVA (cerebrovascular accident): Plan Patient is a 79-year-old male with PMHx significant for CAD s/p CABG x 2 with a FOLEY to the LAD and vein graft to the OM with follow-up STEMI and collapse of the vein graft [PCI to the LAD and RCA in March 2019 revealing a patent FOLEY], history of nonsustained ventricular tachycardia, ischemic cardiomyopathy [EF = 30-35% - May 2025], HFrEF s/p BIV AICD in July 2021, asymptomatic bilateral carotid artery stenosis, history of CVA at age 30 of unclear etiology with residual R-sided facial droop and R hand weakness/sensory deficit, PAD with failed PTCA of the arteries of his hip under questionable circumstances at an outside facility, PAF s/p PABLO/DCCV in February 2021, DMII, no flow in bilateral middle cerebral arteries with collateralization suggestive of chronic high-grade stenosis and/or occlusion, intermittent LBBB, labile HTN [with prior recommendations from neurology to keep BP on higher side to improve cerebral blood flow], vascular dementia, CKD stage IIIa, postgastric surgery syndrome and EDGAR who presented to the ED from home with complaints of HOYT, orthopnea and weight gain of 11lb since being discharged from our service on 06/25/25. Patient was admitted from 06/23/25-06/25/25 with acute on chronic HFrEF, ambulatory dysfunction in the setting of progressive vascular dementia vs possible undiagnosed CVA within the past month. Following adjustments made to his medication list: metoprolol succinate increased to 50mg daily [re: therapeutic cardiac resynchronization pacing less than 90% of the time likely in part due to frequent PVCs on recent device check], Aldactone increased to 25mg daily, started on Entresto BID, started on Jardiance, restarted on Eliquis [unclear reasoning for stopping this in the first place]. TTE, 06/24/25: EF 30-35%, LV wall thickness mildly increased in non-infarct segments, mildly dilated LV, large inferoposterior wall motion abnormality with scar, grade II DD consistent with elevated LA pressure, mild-mod MR, trace TR. #Acute on chronic HFrEF #Ischemic cardiomyopathy #History of NSVT s/p BIV AICD in July 2021 #Chronic LBBB #CAD s/p CABG x 2 with a FOLEY to the LAD and vein graft to the OM with follow-up STEMI and collapse of the vein graft, PCI to the LAD and RCA in March 2019 revealing a patent FOLEY HS-troponin x 1 neg, BNP 474 Wt at presentation 126.3kg; wt previously 120.2kg on 06/25/25 = 6.1kg wt gain CXR: evidence of congestive failure, no large pleural effusion Home meds: Lasix 20mg, Aldactone 25mg Cardio on board: complex due to orthostatic syncope - meds are held due to low BP, appreciate cardio help w/ GDMT optimization. Strict I&Os, daily wts (standing if able), tele monitoring Continue Plavix, statin, Zetia #CKD stage IIIa Cr 1.81 at presentation, previously Cr 1.63 on 06/25/25 Difficult to determine baseline Cr given recent med changes, lapses in OP monitoring Doubt MCKENZIE, continue to monitor Cr slight uptrend today. #Vascular dementia --> progressive memory deficits x past 1-2 months #Recent functional decline/ambulatory dysfunction with shuffling gait Evaluated by neuro last admission: suspect pt may have experienced a stroke over the past month -CT head noted area of encephalomalacia/edema peripherally in right cerebellar hemisphere consistent with area of ischemic infarction of uncertain chronicity -MRI brain could not be obtained at this time as he has a Medtronic biventricular pacemaker/AICD with left bundle lead which was placed in 2021 and having the left bundle lead plugged into the left ventricular port of the device is considered off label and therefore MRI brain cannot be performed at [facility] due to current radiology policy -Need to ensure pt is arranged for OP MRI brain study - will need to be completed at [facility] -Need to ensure OP neuro f/u in 4-6wks Had stroke alert in AM of 06/30, see communication note 06/30, likely orthostatic syncope contributory. Telestroke evaled, Neuro evaled - recs is neuroendovascular surgery eval as OP to address his left ICA stenosis. slow transition during change in position, compression stocking. Educated pt and his family the need for slow transition during change in position. #Bilateral carotid artery stenosis CTA head and neck on 06/24/25 showed 90% stenosis of proximal left ICA due to extensive plaque, 40% stenosis of proximal right ICA, mod to severe stenosis of intracranial left Vertebral artery and moderate stenosis of intracranial right vertebral artery, no significant flow seen in proximal middle cerebral arteries bilaterally -Need to arrange OP vascular surgery eval Continue Plavix, statin, Zetia #PAF s/p PABLO/DCCV in February 2021: Continue BB, Eliquis #DMII: Hgb A1c 6.7% as of 02/2025, 6.9 this admission. Previously on metformin --> stopped last admission 12/27 starting Jardiance. Continue Jardiance when able. SSI protocol while inpt, follow BSG checks ACHS DVT Prophylaxis: Colette Disposition: pcu/tele Admission and Anticipated Discharge Date Admission Date: June 30, 2025 Subjective Patient was seen and examined at bedside. Patient was sitting at the edge of the bed, on room air, NAD, resting comfortably. Pt's at bedside who was also updated on plan of care. Patient reports eating okay/moving bowels okay/no chest pain or shortness of breath. Pt denies dizziness and lightheadedness but pt's at bedside states pt still has dizziness. Physical Exam Physical Exam: Constitutional: well developed and + obese; not in d istress Eyes: no conjunctival ab normality ENMT: Ears: no hearing i mpairment and no e xternal ear abnorm ality Mouth: oral mucous membranes not dry (chronic R -sided facial droo p s/p CVA at age [age] - unchanged) Neck: trachea midline, n o thyromegaly Respiratory: normal respiratory effort and able t o speak in complet e sentences; no re spiratory distress and no cough Aus cultation: + crack les x bb; no wheez es Cardiovascular: Rate/Rhythm: regul ar rate and regula r rhythm Heart So unds: no murmur E xtremities: no ped al edema Gastrointestinal ( Abdomen): Inspection/Auscult ation: abdomen nor mal to inspection and normal bowel s ounds; abdomen not distended Percus xin/Palpation: ab domen soft; abdome n nontender Musculoskeletal: Extremities: extre mities normal to i nspection and stre ngth 5/5 throughou t Skin: no rashes, warm an d dry Neurologic: CN's II-XI intact bilaterally (gross ly - not formally tested) Psychiatric: Orientation: alert and oriented x 3 Results & Data Results & Data Vital Signs (Past 12 Hours) Vital Signs Temp Pulse Pulse Resp BP Pulse Ox O2 Del Method 07/02/25 15:05 80 07/02/25 11:43 36.5 C 50 L 18 107/69 97 Room Air 07/02/25 07:44 36.5 C 66 18 117/76 96 Room Air 07/02/25 07:21 74 (3) Vascular dementia Dementia severity: unspecified severity Dementia behavioral or psychological symptom: unspecified whether behavioral, psychotic, or mood disturbance or anxiety Qualified Code(s): F01.50 - Vascular dementia, unspecified severity, without behavioral disturbance, psychotic disturbance, mood disturbance, and anxiety
[2025-07-03 07:27] LABS: Anion Gap 8.0 (3-11); Blood Urea Nitrogen 65.0 mg/dl (6-23); Calcium 9.1 mg/dl (8.6-10.3); Carbon Dioxide 23.0 mmol/L (21-32); Chloride 110.0 mmol/L (98-107); Creatinine Clr Calc Pharmacy 42.2 ml/min; Glucose 97.0 mg/dl (70-99(Fasting)); Magnesium 2.7 mg/dl (1.7-2.4); Potassium 4.8 mmol/L (3.5-5.1); Sodium 141.0 mmol/L (136-145)
--- NOTE | 2025-07-03 08:01 | Cardiology Progress Note ---
Date of Service July 03, 2025 Assessment & Plan (1) Ischemic cardiomyopathy: (2) Acute on chronic heart failure with reduced ejection fraction (HFrEF, <= 40%): (3) Chronic bundle branch block: (4) Presence of combination internal cardiac defibrillator (ICD) and pacemaker: (5) NSVT (nonsustained ventricular tachycardia): (6) HTN (hypertension): (7) History of CVA (cerebrovascular accident): Plan 79-year-old male with longstanding history of coronary heart disease, ischemic cardiomyopathy, CABG x 2 with FOLEY to LAD and vein graft to the OM in the year 1999, PCI to the LAD and RCA in 2018. Nonsustained ventricular tachycardia, intermittent left bundle branch block for which patient underwent implantation of a Medtronic biventricular AICD in July, with left bundle lead. ECHO upon admission with LVEF 30-35% unchanged compared to previous study with grade II diastolic dysfunction, mild to moderate mitral regurgitation, and inferior/posterior akinesis/scar. History of recurrent stroke episodes with first at least 20 years ago. Recently admitted 06/23/2025 with progressive decline in mentation and stroke-like symptoms. CT at that time revealed what look like new stroke compared to the previous. Subsequently readmitted several days later with concerns of volume overload. In effort to optimize the patient's volume status, patient developed hypotension on multiple medications as well as MCKENZIE. Medications held upon admission. Blood pressure and mentation improved. Recommendations: * Does not appear significantly volume overloaded upon exam and weight remains stable * Heart rate and blood pressure well controlled * AV-paced with rates in 70s and frequent PVC burden with bigeminy and couplets upon telemetry review * Repeat EKG with QTc WNL at 451 ms * Continue amiodarone 200 mg twice daily for PVC suppression * Continue metoprolol succinate ER 25 mg daily * Kidney function remains elevated (2.04 -> 2.05) on AM labs * Hold Jardiance, Imdur, Entresto, and Lasix at this time * Continue SUS[employer]IST Eliquis, Plavix, rosuvastatin and Zetia as per current regimen Case discussed and coordinated with Dr. Cordon. Please see Dr. Cordon notes for further recommendations. I spent a total of 35 minutes coordinating, documenting, and providing care for this patient excluding time spent in the performance of separately billed services or time spent by another provider/QHP. GÓMEZ Wilson Department of Cardiology Admission and Anticipated Discharge Date Admission Date: June 30, 2025 Supervising Physician Co-Signing Physician Notes I spent a total of 30 minutes on the date of service in preparation, delivery, and documentation of the care provided to this patient, excluding any time spent in the performance of separately billed services. I have personally performed a history and physical examination on the patient. I have reviewed the advance practitioner's documentation, and I agree with, and take responsibility for the plan of care. Subjective Seen by cardiology today for examination and follow-up. Laying comfortably in bed on room air. No acute events overnight. Lightheadedness with getting up out of bed otherwise feeling well. Denies chest pressure, pain, shortness of breath, tachy palpitations, syncope, orthopnea, PND, or worsening edema. Chart, medications, and telemetry personally reviewed. Review of Systems Review of Systems: See HPI for pertinent positives. All others negative other than those noted in the HPI. CONSTITUTIONAL: No change in weight, No weakness, No fatigue, No fevers, No sweats or chills. HEENT: No visual changes, No epistaxis, No bleeding gums, No dysphagia, PULMONARY: No cough, sputum, or hemoptysis, No wheezing, No shortness of breath, and No recent change in breathing. CARDIOVASCULAR: No chest pain, No dyspnea on exertion, No edema, No palpitations, No syncope, No claudication, No calf pain. GASTROINTESTINAL: No change in appetite, No abdominal pain, No change in bowel habits, No significant heartburn, No nausea, No vomiting, No diarrhea, No constipation, No blood in stools or black tarry stools, No dysphagia. HEMATOLOGIC: No abnormal bleeding and No bruising. NEUROLOGICAL: +lightheadedness. No falls, No dizziness, Normal balance, No headaches, and No weakness. PSYCH: No sleep disturbances, No mood changes. Physical Exam Physical Exam: Vital signs within normal limits as above. General: Well developed and nourished. No acute distress. A+Ox3. HEENT: Normocephalic. Atraumatic. EOMI. Conjunctiva and sclera clear. NECK: Trachea midline. No thyromegaly. No carotid bruits. No JVD. Carotid upstrokes are brisk. Heart: Irregular rhythm. S1 and S2 noted. No murmur. No rubs or gallops. PMI non displaced. Lungs: No acute respiratory distress. Clear to auscultation. No wheezes.No rhonchi. No rales. Abdomen: Normal bowel sounds. Soft. Nontender. No abdominal bruits. Extremities: Normal capillary refill. No edema. No clubbing or cyanosis. Pulses: radial=2/4, dorsal pedis=2/4. Skin: Warm and dry. NEURO: No focal deficits. PSYCH: Appropriate affect and insight. Results & Data Vital Signs (Past 12 Hours) Vital Signs Temp Pulse Pulse Pulse Resp BP Pulse Ox 07/03/25 07:37 36.5 C 69 18 121/70 94 07/03/25 02:46 36.6 C 43 L 20 138/62 95 07/02/25 23:05 36.6 C 84 18 131/86 95 07/02/25 22:59 67 O2 Del Method 07/03/25 07:37 Room Air 07/03/25 02:46 Room Air 07/02/25 23:05 Room Air 07/02/25 22:59 Laboratory Results Comprehensive Metabolic Panel 07/03/25 Range/Units 06:03 Sodium 141 (136-145) mmol/L Potassium 4.8 (3.5-5.1) mmol/L Chloride 110 H (98-107) mmol/L Carbon Dioxide 23 (21-32) mmol/L BUN 65 H (6-23) mg/dl Creatinine 2.05 H (0.6-1.4) mg/dl Glucose 97 (70-99(Fasting)) mg/dl Calcium 9.1 (8.6-10.3) mg/dl Intake and Output 07/02/25 07/03/25 07/03/25 22:59 06:59 14:59 Output Total Balance -26 / -26 Output: Urine # Bowel Movements Other: # Unmeasured Voids 1 3 Weight 120.7 kg Weight Measurement Method Built in [facility] Care Time/CCT Total # of Minutes Spent Total Time Spent: 35 Total Time Spent with Patient: Total time spent is greater than 50% in coordination of care (as documented) at patient's floor/unit and/or counseling patient: Coding [place] [address] SUB INP/OBS CARE 3/50MIN Patient Type Established Diagnoses Ischemic cardiomyopathy I25.5 Acute on chronic heart failure with reduced ejection fraction (HFrEF, <= 40%) I50.23 Chronic bundle branch block I45.4 Presence of combination internal cardiac defibrillator (ICD) and pacemaker Z95.810 NSVT (nonsustained ventricular tachycardia) I47.29 HTN (hypertension) I10 History of CVA (cerebrovascular accident) Z86.73 Time Spent (min) 50
--- NOTE | 2025-07-03 16:58 | Hospitalist Progress Note ---
Date of Service July 03, 2025 Assessment & Plan (1) Acute on chronic heart failure with reduced ejection fraction (HFrEF, <= 40%): (2) Ischemic cardiomyopathy: (3) Vascular dementia: (4) History of CVA (cerebrovascular accident): Plan Patient is a 79-year-old male with PMHx significant for CAD s/p CABG x 2 with a FOLEY to the LAD and vein graft to the OM with follow-up STEMI and collapse of the vein graft [PCI to the LAD and RCA in March 2019 revealing a patent FOLEY], history of nonsustained ventricular tachycardia, ischemic cardiomyopathy [EF = 30-35% - May 2025], HFrEF s/p BIV AICD in July 2021, asymptomatic bilateral carotid artery stenosis, history of CVA at age 30 of unclear etiology with residual R-sided facial droop and R hand weakness/sensory deficit, PAD with failed PTCA of the arteries of his hip under questionable circumstances at an outside facility, PAF s/p PABLO/DCCV in February 2021, DMII, no flow in bilateral middle cerebral arteries with collateralization suggestive of chronic high-grade stenosis and/or occlusion, intermittent LBBB, labile HTN [with prior recommendations from neurology to keep BP on higher side to improve cerebral blood flow], vascular dementia, CKD stage IIIa, postgastric surgery syndrome and EDGAR who presented to the ED from home with complaints of HOYT, orthopnea and weight gain of 11lb since being discharged from our service on 06/25/25. Patient was admitted from 06/23/25-06/25/25 with acute on chronic HFrEF, ambulatory dysfunction in the setting of progressive vascular dementia vs possible undiagnosed CVA within the past month. Following adjustments made to his medication list: metoprolol succinate increased to 50mg daily [re: therapeutic cardiac resynchronization pacing less than 90% of the time likely in part due to frequent PVCs on recent device check], Aldactone increased to 25mg daily, started on Entresto BID, started on Jardiance, restarted on Eliquis [unclear reasoning for stopping this in the first place]. TTE, 06/24/25: EF 30-35%, LV wall thickness mildly increased in non-infarct segments, mildly dilated LV, large inferoposterior wall motion abnormality with scar, grade II DD consistent with elevated LA pressure, mild-mod MR, trace TR. #Acute on chronic HFrEF #Ischemic cardiomyopathy #History of NSVT s/p BIV AICD in July 2021 #Chronic LBBB #CAD s/p CABG x 2 with a FOLEY to the LAD and vein graft to the OM with follow-up STEMI and collapse of the vein graft, PCI to the LAD and RCA in March 2019 revealing a patent FOLEY HS-troponin x 1 neg, BNP 474 Wt at presentation 126.3kg; wt previously 120.2kg on 06/25/25 = 6.1kg wt gain CXR: evidence of congestive failure, no large pleural effusion Home meds: Lasix 20mg, Aldactone 25mg Cardio on board: complex due to orthostatic syncope - meds are held due to low BP, appreciate cardio help w/ GDMT optimization. Strict I&Os, daily wts (standing if able), tele monitoring Continue Plavix, statin, Zetia #CKD stage IIIa Cr 1.81 at presentation, previously Cr 1.63 on 06/25/25 Difficult to determine baseline Cr given recent med changes, lapses in OP monitoring Doubt MCKENZIE, continue to monitor Cr slight uptrend today. #Vascular dementia --> progressive memory deficits x past 1-2 months #Recent functional decline/ambulatory dysfunction with shuffling gait Evaluated by neuro last admission: suspect pt may have experienced a stroke over the past month -CT head noted area of encephalomalacia/edema peripherally in right cerebellar hemisphere consistent with area of ischemic infarction of uncertain chronicity -MRI brain could not be obtained at this time as he has a [employer]tronic biventricular pacemaker/AICD with left bundle lead which was placed in 2021 and having the left bundle lead plugged into the left ventricular port of the device is considered off label and therefore MRI brain cannot be performed at [facility] due to current radiology policy -Need to ensure pt is arranged for OP MRI brain study - will need to be completed at [facility] -Need to ensure OP neuro f/u in 4-6wks Had stroke alert in AM of 06/30, see communication note 06/30, likely orthostatic syncope contributory. Telestroke evaled, Neuro evaled - recs is neuroendovascular surgery eval as OP to address his left ICA stenosis. slow transition during change in position, compression stocking. Educated pt and his family the need for slow transition during change in position. #Bilateral carotid artery stenosis CTA head and neck on 06/24/25 showed 90% stenosis of proximal left ICA due to extensive plaque, 40% stenosis of proximal right ICA, mod to severe stenosis of intracranial left Vertebral artery and moderate stenosis of intracranial right vertebral artery, no significant flow seen in proximal middle cerebral arteries bilaterally -Need to arrange OP vascular surgery eval Continue Plavix, statin, Zetia #PAF s/p PABLO/DCCV in February 2021: Continue BB, Eliquis #DMII: Hgb A1c 6.7% as of 02/2025, 6.9 this admission. Previously on metformin --> stopped last admission 12/27 starting Jardiance. Continue Jardiance when able. SSI protocol while inpt, follow BSG checks ACHS DVT Prophylaxis: Colette Disposition: pcu/tele Admission and Anticipated Discharge Date Admission Date: June 30, 2025 Subjective Patient was seen and examined at bedside. Patient was lying in bed, on room air, NAD, resting comfortably. Pt's at bedside who was also updated on plan of care. Patient reports eating okay/moving bowels okay/no chest pain or shortness of breath. Pt denies dizziness and lightheadedness but pt's at bedside states pt still has dizziness when standing. Tele reviewed w/ significant PVC load. Physical Exam Physical Exam: Constitutional: well developed and + obese; not in d istress Eyes: no conjunctival ab normality ENMT: Ears: no hearing i mpairment and no e xternal ear abnorm ality Mouth: oral mucous membranes not dry (chronic R -sided facial droo p s/p CVA at age [age] - unchanged) Neck: trachea midline, n o thyromegaly Respiratory: normal respiratory effort and able t o speak in complet e sentences; no re spiratory distress and no cough Aus cultation: + crack les x bb; no wheez es Cardiovascular: Rate/Rhythm: regul ar rate and regula r rhythm Heart So unds: no murmur E xtremities: no ped al edema Gastrointestinal ( Abdomen): Inspection/Auscult ation: abdomen nor mal to inspection and normal bowel s ounds; abdomen not distended Percus xin/Palpation: ab domen soft; abdome n nontender Musculoskeletal: Extremities: extre mities normal to i nspection and stre ngth 5/5 throughou t Skin: no rashes, warm an d dry Neurologic: CN's II-XI intact bilaterally (gross ly - not formally tested) Psychiatric: Orientation: alert and oriented x 3 Results & Data Results & Data Vital Signs (Past 12 Hours) Vital Signs Temp Pulse Pulse Pulse Resp BP BP 07/03/25 16:47 36.7 C 59 L 16 114/71 07/03/25 15:04 71 07/03/25 11:51 36.5 C 56 L 18 137/87 07/03/25 08:00 68 07/03/25 07:37 36.5 C 69 18 121/70 07/03/25 07:00 Pulse Ox O2 Del Method 07/03/25 16:47 95 Room Air 07/03/25 15:04 07/03/25 11:51 96 Room Air 07/03/25 08:00 07/03/25 07:37 94 Room Air 07/03/25 07:00 Room Air (3) Vascular dementia Dementia severity: unspecified severity Dementia behavioral or psychological symptom: unspecified whether behavioral, psychotic, or mood disturbance or anxiety Qualified Code(s): F01.50 - Vascular dementia, unspecified severity, without behavioral disturbance, psychotic disturbance, mood disturbance, and anxiety
[2025-07-04 07:26] LABS: Anion Gap 7.0 (3-11); Blood Urea Nitrogen 57.0 mg/dl (6-23); Calcium 9.2 mg/dl (8.6-10.3); Carbon Dioxide 25.0 mmol/L (21-32); Chloride 109.0 mmol/L (98-107); Creatinine Clr Calc Pharmacy 47.7 ml/min; Glucose 99.0 mg/dl (70-99(Fasting)); Potassium 4.6 mmol/L (3.5-5.1); Sodium 141.0 mmol/L (136-145)
--- NOTE | 2025-07-04 08:35 | Cardiology Progress Note ---
Date of Service July 04, 2025 Assessment & Plan (1) Ischemic cardiomyopathy: (2) Acute on chronic heart failure with reduced ejection fraction (HFrEF, <= 40%): (3) Chronic bundle branch block: (4) Presence of combination internal cardiac defibrillator (ICD) and pacemaker: (5) NSVT (nonsustained ventricular tachycardia): (6) HTN (hypertension): (7) History of CVA (cerebrovascular accident): Plan 79-year-old male with longstanding history of coronary heart disease, ischemic cardiomyopathy, CABG x 2 with FOLEY to LAD and vein graft to the OM in the year 1999, PCI to the LAD and RCA in 2018. Nonsustained ventricular tachycardia, intermittent left bundle branch block for which patient underwent implantation of a Medtronic biventricular AICD in July, with left bundle lead. ECHO upon admission with LVEF 30-35% unchanged compared to previous study with grade II diastolic dysfunction, mild to moderate mitral regurgitation, and inferior/posterior akinesis/scar. History of recurrent stroke episodes with first at least 20 years ago. Recently admitted 06/23/2025 with progressive decline in mentation and stroke-like symptoms. CT at that time revealed what looked like new stroke compared to the previous. Subsequently readmitted several days later with concerns of volume overload. In effort to optimize the patient's volume status, patient started on multiple medications and developed hypotension as well as MCKENZIE. Medications held upon admission. Blood pressure and mentation improved. Recommendations: * Does not appear significantly volume overloaded upon exam and weight remains stable * Heart rate and blood pressure well controlled * AV-paced with rates in 70s and frequent PVC burden with bigeminy and couplets upon telemetry review * Continue amiodarone 200 mg twice daily for PVC suppression * Increased to metoprolol succinate ER 25 mg twice daily * Kidney function improved (2.05 -> 1.82) on AM labs * Would continue to hold Jardiance, Imdur, Entresto, and Lasix at this time * Continue [employer] Eliquis, Plavix, rosuvastatin and Zetia as per current regimen Case discussed and coordinated with Dr. Cordon. Please see Dr. Cordon notes for further recommendations. I spent a total of 30 minutes coordinating, documenting, and providing care for this patient excluding time spent in the performance of separately billed services or time spent by another provider/QHP. GÓMEZ Wilson Department of Cardiology Admission and Anticipated Discharge Date Admission Date: June 30, 2025 Supervising Physician Co-Signing Physician Notes I spent a total of 30 minutes on the date of service in preparation, delivery, and documentation of the care provided to this patient, excluding any time spent in the performance of separately billed services. I have personally performed a history and physical examination on the patient. I have reviewed the advance practitioner's documentation, and I agree with, and take responsibility for the plan of care. Subjective Seen by cardiology today for examination and follow-up. Laying comfortably in bed on room air. No acute events overnight. Feeling well and asymptomatic with ambulating with physical therapy this morning. Denies chest pressure, pain, tachy palpitations, lightheadedness, syncope, orthopnea, PND, or worsening edema. Chart, medications, and telemetry personally reviewed. Review of Systems Review of Systems: See HPI for pertinent positives. All others negative other than those noted in the HPI. CONSTITUTIONAL: No change in weight, No weakness, No fatigue, No fevers, No sweats or chills. HEENT: No visual changes, No epistaxis, No bleeding gums, No dysphagia, PULMONARY: No cough, sputum, or hemoptysis, No wheezing, No shortness of breath, and No recent change in breathing. CARDIOVASCULAR: No chest pain, No dyspnea on exertion, No edema, No palpitations, No syncope, No claudication, No calf pain. GASTROINTESTINAL: No change in appetite, No abdominal pain, No change in bowel habits, No significant heartburn, No nausea, No vomiting, No diarrhea, No constipation, No blood in stools or black tarry stools, No dysphagia. HEMATOLOGIC: No abnormal bleeding and No bruising. NEUROLOGICAL: No falls, No dizziness, Normal balance, No headaches, and No weakness. PSYCH: No sleep disturbances, No mood changes. Respiratory: + dyspnea on exertion Cardiovascular: + lightheadedness Neurologic: + unsteadiness Physical Exam Physical Exam: Vital signs within normal limits as above. General: Well developed and nourished. No acute distress. A+Ox3. HEENT: Normocephalic. Atraumatic. EOMI. Conjunctiva and sclera clear. NECK: Trachea midline. No thyromegaly. No carotid bruits. No JVD. Carotid upstrokes are brisk. Heart: Irregular rhythm. S1 and S2 noted. No murmur. No rubs or gallops. PMI non displaced. Lungs: No acute respiratory distress. Clear to auscultation. No wheezes.No rhonchi. No rales. Abdomen: Normal bowel sounds. Soft. Nontender. No abdominal bruits. Extremities: Normal capillary refill. No edema. No clubbing or cyanosis. Pulses: radial=2/4, dorsal pedis=2/4. Skin: Warm and dry. NEURO: No focal deficits. PSYCH: Appropriate affect and insight. Results & Data Vital Signs (Past 12 Hours) Vital Signs Temp Pulse Pulse Resp BP Pulse Ox O2 Del Method 07/04/25 07:21 36.4 C L 72 18 141/80 H 97 Room Air 07/04/25 06:50 Room Air 07/04/25 03:04 36.4 C L 59 L 18 141/79 H 96 Room Air 07/03/25 23:31 76 07/03/25 23:02 36.8 C 60 20 147/82 H 96 Room Air Laboratory Results Comprehensive Metabolic Panel 07/04/25 Range/Units 06:26 Sodium 141 (136-145) mmol/L Potassium 4.6 (3.5-5.1) mmol/L Chloride 109 H (98-107) mmol/L Carbon Dioxide 25 (21-32) mmol/L BUN 57 H (6-23) mg/dl Creatinine 1.82 H (0.6-1.4) mg/dl Glucose 99 (70-99(Fasting)) mg/dl Calcium 9.2 (8.6-10.3) mg/dl Intake and Output 07/03/25 07/04/25 07/04/25 22:59 06:59 14:59 Intake Total 380 / 620 Balance 380 / 620 Intake: Oral 380 / 620 Other: # Unmeasured Voids 1 Weight 121.2 kg Weight Measurement Method Built in [facility] Diagnostic Findings EKG 07/03/25 AV-paced with frequent PVCs 65 bpm QTc 451 PG Care Time/CCT Total # of Minutes Spent Total Time Spent with Patient: Total time spent is greater than 50% in coordination of care (as documented) at patient's floor/unit and/or counseling patient: Coding [place] [address] SUB INP/OBS CARE 3/50MIN Patient Type Established Diagnoses Ischemic cardiomyopathy I25.5 Acute on chronic heart failure with reduced ejection fraction (HFrEF, <= 40%) I50.23 Chronic bundle branch block I45.4 Presence of combination internal cardiac defibrillator (ICD) and pacemaker Z95.810 NSVT (nonsustained ventricular tachycardia) I47.29 HTN (hypertension) I10 History of CVA (cerebrovascular accident) Z86.73 Time Spent (min) 50
--- NOTE | 2025-07-04 10:04 | Electrocardiogram Report ---
Test Reason : Blood Pressure : */* mmHG Vent. Rate : 65 BPM Atrial Rate : 65 BPM P-R Int : 164 ms QRS Dur : 130 ms QT Int : 434 ms P-R-T Axes : * -7 149 degrees QTcB Int : 451 ms AV dual-paced rhythm with frequent Premature ventricular complexes Abnormal ECG When compared with ECG of 29-Jun-2025 09:22, Premature ventricular complexes are now Present Premature supraventricular complexes are no longer Present Vent. rate has decreased by 17 bpm Confirmed by Joy Chow (Celso) on 07/04/2025 10:04:45 AM Referred By: Chava Bell Confirmed By: Joy Chow
--- NOTE | 2025-07-04 15:17 | Hospitalist Progress Note ---
Date of Service July 04, 2025 Assessment & Plan (1) Acute on chronic heart failure with reduced ejection fraction (HFrEF, <= 40%): (2) Ischemic cardiomyopathy: (3) Vascular dementia: (4) History of CVA (cerebrovascular accident): Plan Patient is a 79-year-old male with PMHx significant for CAD s/p CABG x 2 with a FOLEY to the LAD and vein graft to the OM with follow-up STEMI and collapse of the vein graft [PCI to the LAD and RCA in March 2019 revealing a patent FOLEY], history of nonsustained ventricular tachycardia, ischemic cardiomyopathy [EF = 30-35% - May 2025], HFrEF s/p BIV AICD in July 2021, asymptomatic bilateral carotid artery stenosis, history of CVA at age 30 of unclear etiology with residual R-sided facial droop and R hand weakness/sensory deficit, PAD with failed PTCA of the arteries of his hip under questionable circumstances at an outside facility, PAF s/p PABLO/DCCV in February 2021, DMII, no flow in bilateral middle cerebral arteries with collateralization suggestive of chronic high-grade stenosis and/or occlusion, intermittent LBBB, labile HTN [with prior recommendations from neurology to keep BP on higher side to improve cerebral blood flow], vascular dementia, CKD stage IIIa, postgastric surgery syndrome and EDGAR who presented to the ED from home with complaints of HOYT, orthopnea and weight gain of 11lb since being discharged from our service on 06/25/25. Patient was admitted from 06/23/25-06/25/25 with acute on chronic HFrEF, ambulatory dysfunction in the setting of progressive vascular dementia vs possible undiagnosed CVA within the past month. Following adjustments made to his medication list: metoprolol succinate increased to 50mg daily [re: therapeutic cardiac resynchronization pacing less than 90% of the time likely in part due to frequent PVCs on recent device check], Aldactone increased to 25mg daily, started on Entresto BID, started on Jardiance, restarted on Eliquis [unclear reasoning for stopping this in the first place]. TTE, 06/24/25: EF 30-35%, LV wall thickness mildly increased in non-infarct segments, mildly dilated LV, large inferoposterior wall motion abnormality with scar, grade II DD consistent with elevated LA pressure, mild-mod MR, trace TR. #Acute on chronic HFrEF #Ischemic cardiomyopathy #History of NSVT s/p BIV AICD in July 2021 #Chronic LBBB #CAD s/p CABG x 2 with a FOLEY to the LAD and vein graft to the OM with follow-up STEMI and collapse of the vein graft, PCI to the LAD and RCA in March 2019 revealing a patent FOLEY HS-troponin x 1 neg, BNP 474 Wt at presentation 126.3kg; wt previously 120.2kg on 06/25/25 = 6.1kg wt gain CXR: evidence of congestive failure, no large pleural effusion Home meds: Lasix 20mg, Aldactone 25mg Cardio on board: complex due to orthostatic syncope - meds are held due to low BP, appreciate cardio help w/ GDMT optimization. Pt on amiodarone and metoprolol Strict I&Os, daily wts (standing if able), tele monitoring Continue Plavix, statin, Zetia #CKD stage IIIa Cr 1.81 at presentation, previously Cr 1.63 on 06/25/25 Difficult to determine baseline Cr given recent med changes, lapses in OP monitoring Doubt MCKENZIE, continue to monitor Cr slight downtrend today. #Vascular dementia --> progressive memory deficits x past 1-2 months #Recent functional decline/ambulatory dysfunction with shuffling gait Evaluated by neuro last admission: suspect pt may have experienced a stroke over the past month -CT head noted area of encephalomalacia/edema peripherally in right cerebellar hemisphere consistent with area of ischemic infarction of uncertain chronicity -MRI brain could not be obtained at this time as he has a [employer]tronic biventricular pacemaker/AICD with left bundle lead which was placed in 2021 and having the left bundle lead plugged into the left ventricular port of the device is considered off label and therefore MRI brain cannot be performed at [facility] due to current radiology policy -Need to ensure pt is arranged for OP MRI brain study - will need to be completed at [facility] -Need to ensure OP neuro f/u in 4-6wks Had stroke alert in AM of 06/30, see communication note 06/30, likely orthostatic syncope contributory. Telestroke evaled, Neuro evaled - recs is neuroendovascular surgery eval as OP to address his left ICA stenosis. slow transition during change in position, compression stocking. Educated pt and his family the need for slow transition during change in position. #Bilateral carotid artery stenosis CTA head and neck on 06/24/25 showed 90% stenosis of proximal left ICA due to extensive plaque, 40% stenosis of proximal right ICA, mod to severe stenosis of intracranial left Vertebral artery and moderate stenosis of intracranial right vertebral artery, no significant flow seen in proximal middle cerebral arteries bilaterally -Need to arrange OP vascular surgery eval Continue Plavix, statin, Zetia #PAF s/p PABLO/DCCV in February 2021: Continue BB, Eliquis #DMII: Hgb A1c 6.7% as of 02/2025, 6.9 this admission. Previously on metformin --> stopped last admission 12/27 starting Jardiance. Continue Jardiance when able. SSI protocol while inpt, follow BSG checks ACHS DVT Prophylaxis: Colette Disposition: pcu/tele Admission and Anticipated Discharge Date Admission Date: June 30, 2025 Subjective Patient was seen and examined at bedside. Patient was sitting up in bed, on room air, NAD, resting comfortably. Pt's at bedside who was also updated on plan of care. Patient reports eating okay/moving bowels okay/no chest pain or shortness of breath. Pt denies dizziness and lightheadedness, Pt's agrees it is improving gr adually. Physical Exam Physical Exam: Constitutional: well developed and + obese; not in d istress Eyes: no conjunctival ab normality ENMT: Ears: no hearing i mpairment and no e xternal ear abnorm ality Mouth: oral mucous membranes not dry (chronic R -sided facial droo p s/p CVA at age [age] - unchanged) Neck: trachea midline, n o thyromegaly Respiratory: normal respiratory effort and able t o speak in complet e sentences; no re spiratory distress and no cough Aus cultation: + crack les x bb; no wheez es Cardiovascular: Rate/Rhythm: regul ar rate and regula r rhythm Heart So unds: no murmur E xtremities: no ped al edema Gastrointestinal ( Abdomen): Inspection/Auscult ation: abdomen nor mal to inspection and normal bowel s ounds; abdomen not distended Percus xin/Palpation: ab domen soft; abdome n nontender Musculoskeletal: Extremities: extre mities normal to i nspection and stre ngth 5/5 throughou t Skin: no rashes, warm an d dry Neurologic: CN's II-XI intact bilaterally (gross ly - not formally tested) Psychiatric: Orientation: alert and oriented x 3 Results & Data Results & Data Vital Signs (Past 12 Hours) Vital Signs Temp Pulse Pulse Resp BP Pulse Ox O2 Del Method 07/04/25 11:34 36.5 C 55 L 18 139/81 96 Room Air 07/04/25 07:30 82 07/04/25 07:21 36.4 C L 72 18 141/80 H 97 Room Air 07/04/25 06:50 Room Air (3) Vascular dementia Dementia severity: unspecified severity Dementia behavioral or psychological symptom: unspecified whether behavioral, psychotic, or mood disturbance or anxiety Qualified Code(s): F01.50 - Vascular dementia, unspecified severity, without behavioral disturbance, psychotic disturbance, mood disturbance, and anxiety
[2025-07-04] MEDS: METOPROLOL SUCC 25MG EXT REL TAB PO SCH (19:54)
[2025-07-05 09:04] LABS: Anion Gap 4.0 (3-11); Blood Urea Nitrogen 50.0 mg/dl (6-23); Calcium 9.3 mg/dl (8.6-10.3); Carbon Dioxide 25.0 mmol/L (21-32); Chloride 111.0 mmol/L (98-107); Creatinine Clr Calc Pharmacy 45.2 ml/min; Glucose 125.0 mg/dl (70-99(Fasting)); Magnesium 2.5 mg/dl (1.7-2.4); Potassium 4.6 mmol/L (3.5-5.1); Sodium 140.0 mmol/L (136-145)
[2025-07-05 10:37] VITALS: RESP 17; TEMP 97.5; O2SAT 96
--- NOTE | 2025-07-05 11:36 | Cardiology Progress Note ---
Date of Service July 05, 2025 Assessment & Plan (1) NSVT (nonsustained ventricular tachycardia): (2) Acute on chronic heart failure with reduced ejection fraction (HFrEF, <= 40%): (3) HTN (hypertension): (4) History of CVA (cerebrovascular accident): Plan Pt doing well today other than frequent PVCs, but patient is asymptomatic and has remained AV paced on monitor with rate in 70's. Euvolemic and kidney function stable. Bp's remain stable no stroke like symptoms that were present a few days ago with the hypotensive episodes. -Frequent PVC 's on monitor. AV paced in 70's -Continue Amiodarone and metoprolol considering adjustments to better control PVC burden without jeopardizing BP -BP stable today and have been within norms -Continue Eliquis, Plavix -Euvolemic with weight and I/O stable -Considering restarting Jardiance at reduced dose -Strict I/O and standing scale weights -Kidney function this am creatinine 1.92 -Continue reinforcing strict low sodium diet and fluid control I spent a total of 30 minutes on the date of service in preparation, delivery, and documentation of the care provided to this patient, excluding any time spent in the performance of separately billed services. Steven MAGAÑA Department of Cardiology, [facility] This chart was completed in part utilizing Speech Voice Recognition Software. Grammatical errors, random word insertions, pronoun errors, and incomplete sentences are an occasional consequence of this system due to software limitations, ambient noise, and hardware issues. Any formal questions or concerns about the content, text, or information contained within the body of this dictation should be directly addressed to the provider for clarification. Admission and Anticipated Discharge Date Admission Date: June 30, 2025 Supervising Physician Co-Signing Physician Notes Attending attestation: Case reviewed with the advanced practitioner. I have personally performed a history and physical examination on the patient. I have reviewed the advanced practitioner's documentation on the date of service referenced in note, and I agree with, and take responsibility for the plan of care. Subjective: Patient subjectively improved today. Able to walk a short distance to the restroom. Denies lightheadedness or dizziness. I think his mental status is improved compared to when I had seen him 3 days ago. Telemetry reveals sinus rhythm with AV sequential pacing and occasional PVCs. The overall frequency of the PVCs appears to be a little bit better today. Exam: Cardiovascular regular rhythm with occasional ectopy, no murmurs, no edema Impression/ Plan: Chronic heart failure with reduced ejection fraction, ischemic cardiomyopathy Frequent PVCs, runs of nonsustained ventricular tachycardia, History of biventricular pacemaker/AICD Cerebral hypoperfusion with noted middle cerebral artery territory stenoses, 90% stenosis of the proximal left internal carotid artery Recommendations: * Does not appear significantly volume overloaded upon exam and weight remains stable * Continue amiodarone 200 mg twice daily for PVC suppression * Continue metoprolol succinate ER 25 mg twice daily * Kidney function stable * Would continue to hold Jardiance, Imdur, Entresto * Continue [facility] Eliquis, Plavix, rosuvastatin and Zetia as per current regimen * Resume furosemide at at dose of 20 mg by mouth three days per week on , , Fridays. * Follow up with [facility] Cardiology-appointment to be arranged * Follow up with vascular surgery as outpatient for carotid disease * Stable from cardio perspective for discharge I spent a total of 30 minutes coordinating, documenting, and providing care for this patient excluding time spent in the performance of separately billed services or time spent by another provider. Urbano Gann, DO Subjective Pt states that he is doing well today, but states that he really never notices that he isn't. is at bedside and is the person that notices Tulio's acute changes. She states he is doing well today and that they're just looking forward to going home at some point. They're more discouraged and upset that we can't get him balanced medication truong to allow him to go home. Tulio denies any lightheadedness, dizziness, cp, sob, miles or any other issues and states he is at his baseline. Pt is up and in bathroom cleaning up independently without issue or complaints. Review of Systems Review of Systems: All systems reviewed & are unremarkable except as noted in HPI & below Constitutional: States he feels well and deneis any changes from what his baseline is Respiratory: Denies any SOB, MILES Cardiovascular: Additional Comments: Denies any palpitations or cp Neurologic: States he is gettingg around well without weakness or unsteadiness. Physical Exam Constitutional: WD/WN, vitals as above + overweight Eyes: PERRL and normal accommodation Neck: trachea midline, no thyromegaly Respiratory: normal respiratory effort, lungs clear to auscultation Cardiovascular: RRR, no murmur, no edema Rate/Rhythm: regular rate and regular rhythm Frequent PVCs Chest (Breasts): Chest: + pacemaker Gastrointestinal (Abdomen): normal bowel sounds, soft, nontender, no hepatosplenomegaly Musculoskeletal: no cyanosis or clubbing, extremities motor strength 5/5 Skin: no rashes, warm and dry Neurologic: PERRL, EOMI, accommodation nl, no face palsy, no dysarthria Psychiatric: A+Ox3, euthymic affect Speech at baseline slightly garbled Results & Data Vital Signs (Past 12 Hours) Vital Signs Temp Pulse Pulse Pulse Resp BP BP 07/05/25 10:36 36.4 C L 75 17 110/74 07/05/25 08:29 81 07/05/25 08:00 100 H 07/05/25 07:19 36.5 C 48 L 20 133/74 07/05/25 02:43 36.4 C L 60 18 136/70 Pulse Ox O2 Del Method 07/05/25 10:36 96 Room Air 07/05/25 08:29 07/05/25 08:00 07/05/25 07:19 94 Room Air 07/05/25 02:43 96 Room Air Laboratory Results Comprehensive Metabolic Panel 07/05/25 Range/Units 08:26 Sodium 140 (136-145) mmol/L Potassium 4.6 (3.5-5.1) mmol/L Chloride 111 H (98-107) mmol/L Carbon Dioxide 25 (21-32) mmol/L BUN 50 H (6-23) mg/dl Creatinine 1.92 H (0.6-1.4) mg/dl Glucose 125 H (70-99(Fasting)) mg/dl Calcium 9.3 (8.6-10.3) mg/dl Intake and Output 07/04/25 07/05/25 07/05/25 22:59 06:59 14:59 Intake Total 175 / 855 Balance 175 / 855 Intake: Oral 175 / 855 Other: # Unmeasured Voids 2 2 Weight 121.24 kg Medications Administered Current Inpatient Medications Acetaminophen (Acetaminophen 325 Mg Tab) 650 mg PO Q4H PRN PRN Reason: Pain or Fever Stop: 07/29/25 14:16 Amiodarone HCl (Amiodarone 200 Mg Tab) 200 mg PO BIDM [facility] Stop: 07/31/25 16:59 Last Admin: 07/05/25 08:27 Dose: 200 mg Apixaban (Apixaban 5 Mg Tablet) 5 mg PO BID [facility] Stop: 07/29/25 20:59 Last Admin: 07/05/25 08:23 Dose: 5 mg Clopidogrel Bisulfate (Clopidogrel Bisulfate 75 Mg Tab) 75 mg PO QAM [facility] Stop: 07/30/25 08:59 Last Admin: 07/05/25 08:22 Dose: 75 mg Cyanocobalamin (Cyanocobalamin (B-12) 500 Mcg Tablet) 500 mcg PO HS [facility] Stop: 07/29/25 20:59 Last Admin: 07/04/25 19:54 Dose: 500 mcg Dextrose (Dextrose 50% 50 Ml Syringe) 25 - 50 ml IV UD PRN; Protocol PRN Reason: Hypoglycemia Protocol Stop: 07/29/25 15:07 Ezetimibe (Ezetimibe 10 Mg Tab) 10 mg PO QAM [facility] Stop: 07/30/25 08:59 Last Admin: 07/05/25 08:23 Dose: 10 mg Empagliflozin (Empagliflozin 25 Mg Tab) 25 mg PO QAM [facility] Stop: 07/30/25 08:59 Last Admin: 06/30/25 08:08 Dose: 25 mg Finasteride (Finasteride 5 Mg Tab) 5 mg PO DAILY [facility] Stop: 07/30/25 08:59 Last Admin: 07/05/25 08:27 Dose: 5 mg Furosemide (Furosemide Inj 20 Mg/2 Ml Vial) 20 mg IV BID17 [facility] Stop: 07/29/25 16:59 Last Admin: 06/30/25 08:09 Dose: 20 mg Glucagon (Glucagon For Inj 1 Mg Vial) 1 mg SQ UD PRN; Protocol PRN Reason: Hypoglycemia Protocol Stop: 07/29/25 15:07 Glucose (Glucose 40% Gel 15 Gm Tube) 15 - 30 gm PO UD PRN; Protocol PRN Reason: Hypoglycemia Protocol Stop: 07/29/25 15:07 Glucose (Glucose 10 Tab/Tube) 4 - 8 tab PO UD PRN; Protocol PRN Reason: Hypoglycemia Protocol Stop: 07/29/25 15:07 Insulin Aspart (Insulin Aspart Per Unit Charge) 0 units SC [facility] Stop: 07/29/25 16:29 Last Admin: 07/05/25 08:22 Dose: Not Given Isosorbide Mononitrate (Isosorbide [place] Extended Rel 30 Mg Tabcr) 30 mg PO QAM [facility] Stop: 07/30/25 08:59 Last Admin: 06/30/25 08:09 Dose: 30 mg Melatonin (Melatonin 3 Mg Tab) 6 mg PO HS PRN PRN Reason: Sleep Stop: 07/31/25 20:46 Last Admin: 07/03/25 23:52 Dose: 6 mg Metoprolol Succinate (Metoprolol Succ 25mg Ext Rel Tab) 25 mg PO BID [facility] Stop: 08/03/25 20:59 Last Admin: 07/05/25 08:28 Dose: 25 mg Miscellaneous (Carbohydrates For Hypoglycemia ) 15 - 30 gm PO UD PRN PRN Reason: Hypoglycemia Protocol Stop: 07/29/25 15:07 Montelukast Sodium (Montelukast Sodium 10 Mg Tablet) 10 mg PO [facility] Stop: 07/30/25 08:59 Last Admin: 07/05/25 08:23 Dose: 10 mg Ondansetron HCl (Ondansetron Inj 2 Mg/Ml 2 Ml Vial) 4 mg IV Q6H PRN PRN Reason: Nausea And Vomiting Stop: 07/29/25 20:46 Polyethylene Glycol (Polyethylene (Miralax) 17 Gm Pack) 17 gm PO DAILY PRN PRN Reason: Constipation Stop: 07/29/25 14:16 Pregabalin (Pregabalin 75 Mg Cap) 75 mg PO QID [facility] Stop: 07/29/25 16:59 Last Admin: 07/05/25 08:29 Dose: 75 mg Rosuvastatin Calcium (Rosuvastatin Calcium 20 Mg Tab) [facility] Stop: 07/30/25 08:59 Last Admin: 07/05/25 08:23 Dose: 40 mg Sacubitril/Valsartan (Valsartan/Sacubitril 26/24mg Tab) 1 tab PO BID [facility] Stop: 07/29/25 20:59 Last Admin: 06/30/25 08:07 Dose: 1 tab Tamsulosin HCl (Tamsulosin Hcl 0.4 Mg Cap) 0.4 mg PO BID [facility] Stop: 07/29/25 20:59 Last Admin: 07/05/25 08:22 Dose: 0.4 mg PG Care Time/CCT Total # of Minutes Spent Total Time Spent: 30 Coding Level of Care Code 38574 SUB INP/OBS CARE 3/50MIN Diagnoses NSVT (nonsustained ventricular tachycardia) I47.29 Acute on chronic heart failure with reduced ejection fraction (HFrEF, <= 40%) I50.23 HTN (hypertension) I10 History of CVA (cerebrovascular accident) Z86.73 Time Spent (min) 60 Comment 30 minutes were spent by Monica Campos, [address] Gann
--- NOTE | 2025-07-05 14:54 | Discharge Summary ---
Date of Service July 05, 2025 Admission HPI Per Admitting Provider Patient is a 79-year-old male with PMHx significant for CAD s/p CABG x 2 with a FOLEY to the LAD and vein graft to the OM with follow-up STEMI and collapse of the vein graft [PCI to the LAD and RCA in March 2019 revealing a patent FOLEY], history of nonsustained ventricular tachycardia, ischemic cardiomyopathy [EF = 30-35% - May 2025], HFrEF s/p BIV AICD in July 2021, asymptomatic bilateral carotid artery stenosis, history of CVA at age 30 of unclear etiology with residual R-sided facial droop and R hand weakness/sensory deficit, PAD with failed PTCA of the arteries of his hip under questionable circumstances at an outside facility, PAF s/p PABLO/DCCV in February 2021, DMII, no flow in bilateral middle cerebral arteries with collateralization suggestive of chronic high-grade stenosis and/or occlusion, intermittent LBBB, labile HTN [with prior recommendations from neurology to keep BP on higher side to improve cerebral blood flow], vascular dementia, CKD stage IIIa, postgastric surgery syndrome and EDGAR who presented to the ED from home with complaints of increased SOB and weight gain of 11lb since being discharged from our service on 06/25/25. History gathered from the patient with assistance from his , Piper, at bedside. Patient recently discharged from our service on 06/25/25 to home without services. Patient was admitted from 06/23/25-06/25/25 with acute on chronic HFrEF, ambulatory dysfunction in the setting of progressive vascular dementia vs possible undiagnosed CVA within the past month. Following adjustments made to his medication list: metoprolol succinate increased to 50mg daily [re: th erapeutic cardiac resynchronization pacing less than 90% of the time likely in part due to frequent PVCs on recent device check], Aldactone increased to 25mg daily, started on Entresto BID, started on Jardiance, restarted on Eliquis [unclear reasoning for stopping this in the first place]. Since his discharge home last week, patient has gained approximately 11lbs despite medication compliance with notable orthopnea and worsening HOYT. notes that he was audibly "gurgling on fluid" during sleep. No reported chest pain. No change in urinary habits or reported fevers. No diet or appetite changes. CXR completed in ED and noted congestive changes. S/p 40mg IV Lasix in ED. Patient denies any SOB at rest. Maintaining O2 saturations in the upper 90s on RA. Vitals notable for labile HTN but otherwise remained stable; BP 170/110 at the time of my evaluation. SBP has been trending anywhere between 110s-180s at home per his . TTE, 06/24/25: EF 30-35%, LV wall thickness mildly increased in non-infarct segments, mildly dilated LV, large inferoposterior wall motion abnormality with scar, grade II DD consistent with elevated LA pressure, mild-mod MR, trace TR. Weight today 126.3kg; weight previously 120.2kg on 06/25/25. Admission Exam Per Admitting Provider Constitutional: well developed and + obese; not in distress Eyes: no conjunctival abnormality ENMT: Ears: no hearing impairment and no external ear abnormality Mouth: oral mucous membranes not dry (chronic R-sided facial droop s/p CVA at age 30 - unchanged) Neck: trachea midline, no thyromegaly Respiratory: normal respiratory effort and able to speak in complete sentences; no respiratory distress and no cough Auscultation: + crackles (trace bilaterally L>R); no wheezes Cardiovascular: Rate/Rhythm: regular rate and regular rhythm Heart Sounds: no murmur Extremities: no pedal edema Gastrointestinal (Abdomen): Inspection/Auscultation: abdomen normal to inspection and normal bowel sounds; abdomen not distended Percussion/Palpation: abdomen soft; abdomen nontender Musculoskeletal: Extremities: extremities normal to inspection and strength 5/5 throughout (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30 - unchanged) Skin: no rashes, warm and dry Neurologic: CN's II-XI intact bilaterally (grossly - not formally tested) Psychiatric: Orientation: alert and oriented x 3 Principal Diagnosis #Acute on chronic HFrEF #Ischemic cardiomyopathy #History of NSVT s/p BIV AICD in July 2021 #Chronic LBBB #CAD s/p CABG x 2 with a FOLEY to the LAD and vein graft to the OM with follow-up STEMI and collapse of the vein graft, PCI to the LAD and RCA in March 2019 revealing a patent FOLEY #Vascular dementia #Bilateral carotid artery stenosis Discharge Exam Constitutional: well developed and + obese; not in distress Eyes: no conjunctival abnormality ENMT: Ears: no hearing impairment and no external ear abnormality Mouth: oral mucous membranes not dry (chronic R-sided facial droop s/p CVA at age 30 - unchanged) Neck: trachea midline, no thyromegaly Respiratory: normal respiratory effort and able to speak in complete sentences; no respiratory distress and no cough Auscultation: no crackles; no wheezes Cardiovascular: Rate/Rhythm: regular rate and regular rhythm Heart Sounds: no murmur Extremities: no pedal edema Gastrointestinal (Abdomen): Inspection/Auscultation: abdomen normal to inspection and normal bowel sounds; abdomen not distended Percussion/Palpation: abdomen soft; abdomen nontender Musculoskeletal: Extremities: extremities normal to inspection and strength 5/5 throughout Skin: no rashes, warm and dry Neurologic: CN's II-XI intact bilaterally (grossly - not formally tested) Psychiatric: Orientation: alert and oriented x 3 Discharge Data Allergies Allergy/AdvReac Type Severity Reaction Status Date / Time No Known Allergies Allergy Verified 05/04/24 00:08 Consultations 06/29/25 13:22 ED Decision to Admit Stat 06/29/25 14:41 Consult Cardiology Routine 06/30/25 11:18 Consult Neurology Routine 06/30/25 17:00 Consult Human Machine Interface Engineer Routine 07/01/25 13:55 Consult Palliative Care Routine Ordered Studies 06/29/25 14:48 US abdomen ltd ascites Urgent 06/30/25 10:54 CT head/brain wo con Stat Hospital Course (1) Acute on chronic heart failure with reduced ejection fraction (HFrEF, <= 40%): (2) Ischemic cardiomyopathy: (3) Vascular dementia: (4) History of CVA (cerebrovascular accident): Plan Patient is a 79-year-old male with PMHx significant for CAD s/p CABG x 2 with a FOLEY to the LAD and vein graft to the OM with follow-up STEMI and collapse of the vein graft [PCI to the LAD and RCA in March 2019 revealing a patent FOLEY], history of nonsustained ventricular tachycardia, ischemic cardiomyopathy [EF = 30-35% - May 2025], HFrEF s/p BIV AICD in July 2021, asymptomatic bilateral carotid artery stenosis, history of CVA at age 30 of unclear etiology with residual R-sided facial droop and R hand weakness/sensory deficit, PAD with failed PTCA of the arteries of his hip under questionable circumstances at an outside facility, PAF s/p PABLO/DCCV in February 2021, DMII, no flow in bilateral middle cerebral arteries with collateralization suggestive of chronic high-grade stenosis and/or occlusion, intermittent LBBB, labile HTN [with prior recommendations from neurology to keep BP on higher side to improve cerebral blood flow], vascular dementia, CKD stage IIIa, postgastric surgery syndrome and EDGAR who presented to the ED from home with complaints of HOYT, orthopnea and weight gain of 11lb since being discharged from our service on 06/25/25. Patient was admitted from 06/23/25-06/25/25 with acute on chronic HFrEF, ambulatory dysfunction in the setting of progressive vascular dementia vs possible undiagnosed CVA within the past month. Following adjustments made to his medication list: metoprolol succinate increased to 50mg daily [re: therapeutic cardiac resynchronization pacing less than 90% of the time likely in part due to frequent PVCs on recent device check], Aldactone increased to 25mg daily, started on Entresto BID, started on Jardiance, restarted on Eliquis [unclear reasoning for stopping this in the first place]. TTE, 06/24/25: EF 30-35%, LV wall thickness mildly increased in non-infarct segments, mildly dilated LV, large inferoposterior wall motion abnormality with scar, grade II DD consistent with elevated LA pressure, mild-mod MR, trace TR. #Acute on chronic HFrEF #Ischemic cardiomyopathy #History of NSVT s/p BIV AICD in July 2021 #Chronic LBBB #CAD s/p CABG x 2 with a FOLEY to the LAD and vein graft to the OM with follow-up STEMI and collapse of the vein graft, PCI to the LAD and RCA in March 2019 revealing a patent FOLEY HS-troponin x 1 neg, BNP 474 Wt at presentation 126.3kg; wt previously 120.2kg on 06/25/25 = 6.1kg wt gain CXR: evidence of congestive failure, no large pleural effusion Home meds: Lasix 20mg, Aldactone 25mg Cardio on board: complex due to orthostatic syncope - pt has been started on amiodarone for PVC suppression, metoprolol and lasix resumed at lower dose, c/t hold Aldactone, Jardiance, Imdur, Entresto. Follow-up with cardiology in 2 to 4 weeks time upon discharge. Continue Plavix, statin, Zetia #CKD stage IIIa Cr 1.81 at presentation, previously Cr 1.63 on 06/25/25 Difficult to determine baseline Cr given recent med changes, lapses in OP monitoring Doubt MCKENZIE, continue to monitor Cr slight downtrend today. #Vascular dementia --> progressive memory deficits x past 1-2 months #Recent functional decline/ambulatory dysfunction with shuffling gait Evaluated by neuro last admission: suspect pt may have experienced a stroke over the past month -CT head noted area of encephalomalacia/edema peripherally in right cerebellar hemisphere consistent with area of ischemic infarction of uncertain chronicity -MRI brain could not be obtained at this time as he has a [employer] biventricular pacemaker/AICD with left bundle lead which was placed in 2021 and having the left bundle lead plugged into the left ventricular port of the device is considered off label and therefore MRI brain cannot be performed at [facility] due to current radiology policy -Need to ensure pt is arranged for OP MRI brain study - will need to be completed at [facility] -Need to ensure OP neuro f/u in 4-6wks Had stroke alert in AM of 06/30, see communication note 06/30, likely orthostatic syncope contributory. Telestroke evaled, Neuro evaled - recs is neuroendovascular surgery eval as OP to address his left ICA stenosis. slow transition during change in position, compression stocking. Educated pt and his family the need for slow transition during change in position. #Bilateral carotid artery stenosis CTA head and neck on 06/24/25 showed 90% stenosis of proximal left ICA due to extensive plaque, 40% stenosis of proximal right ICA, mod to severe stenosis of intracranial left Vertebral artery and moderate stenosis of intracranial right vertebral artery, no significant flow seen in proximal middle cerebral arteries bilaterally -Need to arrange OP vascular surgery eval Continue Plavix, statin, Zetia #PAF s/p PABLO/DCCV in February 2021: Continue BB, Eliquis #DMII: Hgb A1c 6.7% as of 02/2025, 6.9 this admission. Previously on metformin --> stopped last admission 2/2 starting Jardiance. Continue Jardiance when able. SSI protocol while inpt, follow BSG checks ACHS DVT Prophylaxis: Eliquis Disposition: pcu/tele Patient is being discharged home with outpatient physical therapy with following instructions at the point of discharge: Follow-up with your primary care physician within a week time and likely you will need labs CBC/CMP/magnesium/phosphorus. Follow-up with cardiology in 2 to 4 weeks time upon discharge. Follow-up with neurology in 4 weeks time upon discharge. Follow-up with neuroendovascular surgery in 2 to 4 weeks upon discharge, coordinate with your PCP office to set up the referral. Follow-up on your plan for MRI brain study as an outpatient at [facility]. Cardiology evaluated you, you have been started on amiodarone 200 Mg twice daily. Continue with your metoprolol at 25 Mg twice daily. Continue to hold your Jardiance, Imdur, Entresto, Aldactone. Resume your furosemide at 20 Mg 3 days a week [Saturday, Saturday, Fridays]. Take your medications as prescribed. Please make sure that you are able to get your medications today by calling your pharmacy before you leave the hospital so that your treatment continuity is not broken. Home Health Attestation I certify that this patient is under my care and that I, or a physicians neurosurgical physician assistant working with me, had a face to-face encounter that meets the home health [id number] encounter requirements with this patient. The encounter with the patient was in whole, or in part, for the following medical condition, which is the primary reason for home health care (list medical condition): I certify that, based on my findings, the following services are medically necessary home health services: My clinical findings support the need for the above services because: Further, I certify that my clinical findings support that this patient is homebound (i.e. absences from home require considerable and taxing effort and are for medical reasons or episcopal services or infrequently or of short duration when for other reasons) because: Certification for Home Health Services: Based on the above findings, I certify that this patient is confined to the home and needs intermittent senior care care, physical therapy and/or speech therapy or continues to need occupational therapy. The patient is under my care, and I have initiated the establishment of the plan of care. This patient will be followed by a physician who will periodically review the plan of care. Total Time Total Time Spent Total Time Spent (In Minutes): 30 Discharge Plan Discharge Items Patient Disposition: Home - Self-Care Reason For Visit: ACUTE ON CHRONIC HFreEF Discharge Diagnosis: #Acute on chronic HFrEF #Ischemic cardiomyopathy #History of NSVT s/p BIV AICD in July 2021 #Chronic LBBB #CAD s/p CABG x 2 with a FOLEY to the LAD and vein graft to the OM with follow-up STEMI and collapse of the vein graft, PCI to the LAD and RCA in March 2019 revealing a patent FOLEY #Vascular dementia #Bilateral carotid artery stenosis Condition on Discharge: Fair Activity: As commented below Activity Comment: Continue with outpatient physical therapy Non-emergency contact: Primary Care Provider Call non-emergency contact if: you have any medication questions and your symptoms worsen Follow-up/Referrals: Chava Bell MD [Primary Care Provider] - Diet: Carb Consistent or DM2, Heart Healthy and Low Sodium (2gm) Fluids: 1800ml (7 cups) Addtl Attending Provider Instructions: Follow-up with your primary care physician within a week time and likely you will need labs CBC/CMP/magnesium/phosphorus. Follow-up with cardiology in 2 to 4 weeks time upon discharge. Follow-up with neurology in 4 weeks time upon discharge. Follow-up with neuroendovascular surgery in 2 to 4 weeks upon discharge, coordinate with your PCP office to set up the referral. Follow-up on your plan for MRI brain study as an outpatient at [facility]. Cardiology evaluated you, you have been started on amiodarone 200 Mg twice daily. Continue with your metoprolol at 25 Mg twice daily. Continue to hold your Jardiance, Imdur, Entresto, Aldactone. Resume your furosemide at 20 Mg 3 days a week [Saturday, Saturday, Fridays]. Take your medications as prescribed. Please make sure that you are able to get your medications today by calling your pharmacy before you leave the hospital so that your treatment continuity is not broken. Pending Studies at Discharge: No Stand-Alone Forms: [employer], Smoking Cessation Medications and DC Order Prescriptions: New amiodarone 200 mg Tablet 200 mg PO BIDM Qty: 60 0RF metoprolol succinate 25 mg Tablet Extended Release 24 Hr 25 mg PO BID Qty: 60 0RF Continued nitroglycerin 0.4 mg Tablet, Sublingual 0.4 mg sublingual Q5M PRN (Reason: Chest Pain) Qty: 0 tamsulosin 0.4 mg Capsule 0.4 mg PO BID rosuvastatin 40 mg Tablet 40 mg PO QAM montelukast 10 mg tablet 10 mg PO QAM clopidogrel 75 mg Tablet 75 mg PO QAM ezetimibe 10 mg tablet 10 mg PO QAM ascorbic acid (vitamin C) [Vitamin C] 1,000 mg Tablet 1 g PO HS cyanocobalamin (vitamin B-12) [Vitamin B-12] 1,000 mcg Tablet 500 mcg PO HS finasteride [Proscar] 5 mg Tablet 5 mg PO DAILY pregabalin 75 mg capsule 75 mg PO QID Eliquis 5 mg Tablet 5 mg PO BID Qty: 60 0RF Changed furosemide 20 mg tablet 20 mg PO Q OTHER DAY Qty: 20 0RF Rx Instructions: 20 mg by mouth three days per week on , , Fridays. Held isosorbide mononitrate 30 mg Tablet Extended Release 24 Hr 30 mg PO QAM Qty: 0 Hold Instructions: Resume on 07/22/25. Hold until further cardiology evaluation as outpatient in 1-2 weeks. Entresto 24-26 mg Tablet 1 tab PO BID Qty: 60 0RF Hold Instructions: Resume on 07/22/25. Hold until further cardiology evaluation as outpatient in 1-2 weeks. spironolactone 25 mg tablet 25 mg PO QAM Hold Instructions: Resume on 07/22/25. Hold until further cardiology evaluation as outpatient in 1-2 weeks. Jardiance 25 mg tablet 25 mg PO QAM Hold Instructions: Resume on 07/22/25. 20 mg by mouth three days per week on , , Fridays. Discontinued metoprolol succinate 50 mg Tablet Extended Release 24 Hr 50 mg PO QAM Qty: 30 0RF Discharge Orders: Discharge Order- CHF (Routine); Ordered 07/05/25 Ordered By: Yandel Overton/Other Patient Handouts: Diabetes and Heart Disease, Heart Failure Make Changes Diet Admission Data Admit Date/Time: 06/30/25 13:43 Attending Provider: Ayaz Swift Admit Provider: Yandel Mckenzie Primary Care Provider: Chava Bell Other Providers: Ayaz Swift; Tony Bradley; Liang Foss; Em Rodrigez; Hayley Mane; Darlyn Howell
[2025-07-05 15:27] VITALS: BP 133/74; PULSE 81
== END 2025-07-05 16:06 | disposition home health service (06) | DRG 291 ==
LOC: ED 09:10 → 2N 09:10 → SUATTDRO 13:28 → 2N 14:00 → 1E 06-30 17:45 → 2S 07-01 19:03

== ENCOUNTER 2025-07-28 11:05 | Inpatient (IN) ==
--- NOTE | 2025-07-28 11:28 | Emergency Department Note ---
Impression & Plan Shortness of breath, CHF (congestive heart failure), Weakness ED Provider Note NAME: KEYANA CHAVIS AGE: 79 SEX: M : 1945 ARRIVES VIA: Walk-In INFORMANT: Patient ED PROVIDER(S): Andrews Rivers DO CHIEF COMPLAINT: Shortness of breath, 10 pound weight gain, weakness HPI: Patient is a 79-year-old male with a past medical history of dyspnea on exertion, V. tach, CHF with EF of less than 40% who presents to the ER with present at bedside who provides majority of history. She notes that he has become very weak and rundown and had increased shortness of breath since Saturday to Saturday. He has gained 11 to 12 pounds over the same time. He denies any chest pain. No belly pain. No nausea, vomiting or diarrhea. No dysuria, urgency or frequency. No other exacerbating or remitting factors. ADDITIONAL HISTORY OBTAINED: Per HPI Chronic Medical/Social Conditions Affecting Care: Per HPI PAST MEDICAL HISTORY:See Below PAST SURGICAL HISTORY:See Below FAMILY HISTORY:See Below SOCIAL HISTORY:See Below HOME MEDICATIONS:See Below ALLERGIES:See Below VITALS:See Below PHYSICAL EXAMINATION: GENERAL: Sitting up in bed, alert, well appearing, well nourished, no distress, non-toxic EYE EXAM: normal conjunctiva. OROPHARYNX: mucous membranes are moist NECK: supple, no nuchal rigidity, no adenopathy, non-tender LUNGS: Clear to auscultation. Normal chest wall mechanics HEART: no murmurs, S1 normal and S2 normal ABDOMEN: abdomen soft, non-tender, normo-active bowel sounds, no masses, no rebound or guarding. UPPER EXTREMITIES: upper extremities are grossly normal. LOWER EXTREMITIES: Faint pitting edema bilaterally. NEURO EXAM: Normal sensorium, cranial nerves II-XII grossly intact, normal speech, no gross weakness of arms, no gross weakness of legs. MEDICAL DECISION MAKING: Patient is a 79-year-old male who presents to the ER for nearly a 7 to 8 kg weight gain over the past 5 to 6 days. IV was established and blood work was obtained. Admits to feeling weak and rundown and short of breath. Labs show leukopenia 4.5 and anemia at 11.8. Platelets were low at 124. BMP with a creatinine of 2 fairly consistent with previous. LFTs bilirubin were unremarkable. Troponin was negative. Lipase is normal. Chest x-ray with no focal infiltrate. Patient was blood pressure initially was in the 80s and trended up to 140s. He was consequently given IV Lasix. Discussed case with the hospitalist for further evaluation management and treatment. Review of external records does show that his weight generally runs around 120 to 121 kg and is currently 128. Case was discussed with the hospitalist for further evaluation management treatment. Patient was given IV Lasix. Consults/Care Managements Discussions: Per [facility] Triage Nursing notes reviewed. Limited review of prior medical records performed Vital Signs: reviewed and remarkable for hypotension Differential diagnosis: Differential diagnoses includes but is not limited to pneumonia, bronchitis, COPD/Asthma exacerbation, pneumothorax, pulmonary embolism, congestive heart failure, acute coronary syndrome ER treatment provided: See below Diagnostics interpreted by me include EKG and cardiac monitoring as listed below: -Cardiac Monitoring: An order was placed for continuous cardiac monitoring. The monitor shows a rate of 60 with paced rhythm. -ECG: Paced rate of 60 Left axis No PVCs QTc 468 -Laboratory studies:Interpreted by me as stated above in MDM and shown below. Imaging studies: Xrays: As interpreted by me: Portable AP upright 1 view of the chest shows no focal infiltrate by the large cardiac silhouette CTs show: none Procedures:none Critical Care: None Past Med/Surg History Problem List Weakness (Acute) CHF (congestive heart failure) (Acute) Shortness of breath (Acute) Advanced care planning/counseling discussion Counseling regarding advanced directives and goals of care Palliative care by specialist HOYT (dyspnea on exertion) (Acute) Pulmonary edema (Acute) History of CVA (cerebrovascular accident) Ischemic cardiomyopathy Vascular dementia Generalized weakness (Acute) Ambulatory dysfunction (Acute) NSVT (nonsustained ventricular tachycardia) (Acute) Acute exacerbation of CHF (congestive heart failure) (Acute) Acute on chronic heart failure with reduced ejection fraction (HFrEF, <= 40%) Lab test negative for COVID-19 virus (Acute) Chronic bundle branch block LBBB Dyslipidemia HTN (hypertension) Gout of knee Left knee DJD NSVT (nonsustained ventricular tachycardia) NSTEMI (non-ST elevated myocardial infarction) S/P repair of paraesophageal hernia (Chronic) History of Amie fundoplication (Chronic) H/O umbilical hernia repair (Chronic) x2 TIA (transient ischemic attack) (Chronic) Gout (Chronic) GERD (gastroesophageal reflux disease) (Chronic) Peripheral vascular disease (Chronic) Status post cataract extraction (Chronic) Status post repair of ventral hernia (Chronic) Status post tonsillectomy (Chronic) Medical History Orthostasis Acute kidney injury superimposed on CKD Acute hypokalemia Elevated troponin Pneumonia Sepsis 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 CKD (chronic kidney disease), stage III Cardiomyopathy, ischemic CKD (chronic kidney disease) stage 3, GFR 30-59 ml/min Elevated troponin LBBB (left bundle branch block) Atrial fibrillation with rapid ventricular response Stenosis of left internal carotid artery Ischemic cardiomyopathy DVT prophylaxis Paroxysmal A-fib CVA (cerebral vascular accident) GERD (gastroesophageal reflux disease) Diabetes Hypertension Coronary artery disease 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 Diabetes mellitus, type 2 Surgical History History of coronary artery stent placement LAD and RCA 2019 S/P CABG x 2 Family History Mother Stroke Denies family history of Crohn's disease Colorectal cancer Ulcerative colitis Social History Smoking Status: Never smoker Tobacco Type: Cigarettes Second Hand Exposure: No; Do You Dip or Chew Tobacco: No; Hx Alcohol Use: Yes Alcohol type: beer Hx Substance Use: No Preferred Language: Filipino Communication Ability: Effective Communication Ability Comment: [phone] Blood Bank Assistant Required: No Beliefs That Will Affect Care: Spiritual marital status: Current Living Situation: Spouse current occupation: Retired Feels Safe at Home: Yes Assistive Devices: None Allergies Allergies Allergy/AdvReac Type Severity Reaction Status Date / Time No Known Allergies Allergy Verified 07/28/25 14:02 Home Meds Home Medications Medication Instructions Recorded Confirmed isosorbide mononitrate 30 mg 0 mg PO QAM #0 tabs 08/12/14 07/28/25 tablet,extended release 24 hr nitroglycerin 0.4 mg sublingual 0.4 mg sublingual Q5M PRN Chest 08/15/17 07/28/25 tablet Pain ##0 rosuvastatin 40 mg tablet 40 mg PO QAM 03/30/19 07/28/25 tamsulosin 0.4 mg capsule 0.4 mg PO BID 03/30/19 07/28/25 clopidogrel 75 mg tablet 75 mg PO QAM 03/15/21 07/28/25 montelukast 10 mg tablet 10 mg PO QAM 03/15/21 07/28/25 ezetimibe 10 mg tablet 10 mg PO QAM 07/29/21 07/28/25 pregabalin 75 mg capsule 75 mg PO QID 05/10/22 07/28/25 ascorbic acid (vitamin C) 1,000 mg 1 g PO HS 10/18/23 07/28/25 tablet (Vitamin C) cyanocobalamin (vitamin B-12) 500 mcg PO HS 10/18/23 07/28/25 1,000 mcg tablet (Vitamin B-12) finasteride 5 mg tablet (Proscar) 5 mg PO DAILY 10/18/23 07/28/25 empagliflozin 25 mg tablet 0 mg PO QAM 06/29/25 07/28/25 (Jardiance) spironolactone 25 mg tablet 0 mg PO QAM 06/29/25 07/28/25 metoprolol succinate 25 mg 25 mg PO DAILY 07/21/25 07/28/25 tablet,extended release 24 hr midodrine 2.5 mg tablet 2.5 mg PO TID 07/28/25 07/28/25 sacubitril 24 mg-valsartan 26 mg 0 tab PO BID 07/28/25 07/28/25 tablet (Entresto) Previous Rx's Medication Instructions Recorded apixaban 5 mg tablet (Eliquis) 5 mg PO BID #60 tabs 06/25/25 amiodarone 200 mg tablet 200 mg PO BIDM #60 tabs 07/05/25 furosemide 20 mg tablet 40 mg (2 x 20 mg) PO DAILY #180 07/21/25 tabs Results & Data (ED) Vital Signs Vital Signs - 24 hr 07/28/25 11:07 07/28/25 11:11 07/28/25 11:14 Temperature 36.7 C Temperature Source Temporal Artery Scan Pulse Rate 64 Pulse Rate from SpO2 Sensor Respiratory Rate 18 Respiratory Effort / Characteristics Non-Labored Respiratory Depth Normal Respiratory Pattern Regular Blood Pressure 88/52 L Blood Pressure Mean 64 Pulse Oximetry 94 95 Oxygen Delivery Method Room Air Room Air Room Air Sepsis Recent Fever Within 48 Hours No Sepsis New/Unexplained Change in Mental Status N/A Sepsis Action Taken by Nursing No Action Required 07/28/25 11:26 07/28/25 11:31 07/28/25 11:33 Temperature Temperature Source Pulse Rate 67 63 Pulse Rate from SpO2 Sensor Respiratory Rate 17 Respiratory Effort / Characteristics Respiratory Depth Respiratory Pattern Blood Pressure 108/64 99/66 L Blood Pressure Mean 71 77 Pulse Oximetry 95 Oxygen Delivery Method Sepsis Recent Fever Within 48 Hours Sepsis New/Unexplained Change in Mental Status Sepsis Action Taken by Nursing 07/28/25 12:00 07/28/25 12:27 07/28/25 13:03 Temperature Temperature Source Pulse Rate 61 64 63 Pulse Rate from SpO2 Sensor 61 64 64 Respiratory Rate 23 17 17 Respiratory Effort / Characteristics Respiratory Depth Respiratory Pattern Blood Pressure 106/74 99/61 L 95/63 L Blood Pressure Mean 84 73 73 Pulse Oximetry 95 95 94 Oxygen Delivery Method Sepsis Recent Fever Within 48 Hours Sepsis New/Unexplained Change in Mental Status Sepsis Action Taken by Nursing 07/28/25 13:30 07/28/25 14:00 07/28/25 15:00 Temperature Temperature Source Pulse Rate 60 60 61 Pulse Rate from SpO2 Sensor 60 61 59 L Respiratory Rate 15 17 15 Respiratory Effort / Characteristics Respiratory Depth Respiratory Pattern Blood Pressure 132/70 114/80 130/77 Blood Pressure Mean 90 91 99 Pulse Oximetry 96 93 95 Oxygen Delivery Method Sepsis Recent Fever Within 48 Hours Sepsis New/Unexplained Change in Mental Status Sepsis Action Taken by Nursing Laboratory Data 07/28/25 11:48 07/28/25 11:48 Lab Results 07/28/25 Range/Units 11:48 WBC 4.54 L (4.8-10.8) K/ul RBC 3.90 L (4.70-6.10) M/uL Hgb 11.8 L (14.0-18.0) g/dl Hct 35.3 L (42.0-52.0) % MCV 90.5 (80.0-100.0) fL MCH 30.3 (25.0-34.0) pg MCHC 33.4 (32.0-36.0) g/dL RDW Std Deviation 52.0 H (36.4-46.3) fL RDW Coeff of Leela 15.6 H (11.5-14.5) % Plt Count 124 L (130-400) K/uL MPV 12.4 (9.4-12.4) fL Immature Gran % (Auto) 0.2 % Neut % (Auto) 63.2 % Lymph % (Auto) 20.7 % Hand % (Auto) 10.6 % Eos % (Auto) 4.2 % Baso % (Auto) 1.1 % Neut # (Auto) 2.87 (1.40-6.50) K/uL Lymph # (Auto) 0.94 L (1.20-3.40) K/uL Hand # (Auto) 0.48 (0.11-0.59) K/uL Eos # (Auto) 0.19 (0.00-0.50) K/uL Baso # (Auto) 0.05 (0.00-0.20) K/uL Immature Gran # (Auto) 0.01 (0.01-0.20) K/uL Sodium 141 (136-145) mmol/L Potassium 4.2 (3.5-5.1) mmol/L Chloride 108 H (98-107) mmol/L Carbon Dioxide 25 (21-32) mmol/L Anion Gap 8 (3-11) BUN 49 H (6-23) mg/dl Creatinine 2.04 H (0.6-1.4) mg/dl Est Cr Clr Drug Dosing Not Reportable eGFR 32.95 BUN/Creatinine Ratio 24.0 H (10-20) Glucose 117 H (70-99(Fasting)) mg/dl Calcium 8.5 L (8.6-10.3) mg/dl Total Bilirubin 0.7 (0.2-1.0) mg/dl AST 22 (13-39) U/L ALT 20 (7-52) U/L Alkaline Phosphatase 58 (34-104) U/L Troponin I High Sens 6.8 (0-20) pg/ml B-Natriuretic Peptide 302 H (0-100) pg/ml Total Protein 6.6 (6.0-8.3) gm/dl Albumin 3.6 (3.4-5.0) gm/dl Globulin 3.0 (2.5-4.0) gm/dl Albumin/Globulin Ratio 1.2 (0.9-2) Lipase 35 (11-82) U/L Administered Medications Discontinued Medications Furosemide (Furosemide 40 Mg/4 Ml Vial) 40 mg IV ONE ONE Stop: 07/28/25 13:46 Last Admin: 07/28/25 14:08 Dose: Not Given Documented By: Junaid Imaging Data Radiologist's Impression: Chest X-Ray 07/28/25 11:14 XR chest 1V portable CLINICAL HISTORY: Chest pain, nonspecific COMPARISON STUDY: 06/30/2025 FINDINGS: The heart is enlarged. There are postsurgical changes of a midline sternotomy. There is an implantable defibrillator present. There is no focal pulmonary consolidation. Note is made of a scoliosis. There is mild central vascular prominence without evidence of overt failure. There are no significant pleural effusions. IMPRESSION: 1. Cardiomegaly 2. Mild central vascular prominence without evidence of overt failure 3. No evidence of acute parenchymal consolidation ACT 112: Negative or not required by law. Electronically signed by: Obdulio Ardon M.D. 07/28/2025 12:04 PM Discharge Plan Visit Data Chief Complaint: Cardiac Assessment Stated Complaint: HEART PROBLEMS, FLUID ED Provider: Andrews Rivers Discharge Problem: Shortness of breath, CHF (congestive heart failure), Weakness Condition: Fair Forms Stand Alone Forms: [facility] [employer] Prescriptions Prescriptions: No Action isosorbide mononitrate 30 mg Tablet Extended Release 24 Hr 0 mg PO QAM Qty: 0 Hold Instructions: Resume on 07/22/25. Hold until further cardiology evaluation as outpatient in 1-2 weeks. Patient Comments: Original Directions: 30mg by mouth once daily. Currently on hold, no restart date noted. 07/28/25 nitroglycerin 0.4 mg Tablet, Sublingual 0.4 mg sublingual Q5M PRN (Reason: Chest Pain) Qty: 0 metoprolol succinate 25 mg tablet extended release 24 hr 25 mg PO DAILY furosemide 20 mg tablet 40 mg PO DAILY Qty: 180 3RF tamsulosin 0.4 mg Capsule 0.4 mg PO BID rosuvastatin 40 mg Tablet 40 mg PO QAM montelukast 10 mg tablet 10 mg PO QAM clopidogrel 75 mg Tablet 75 mg PO QAM ezetimibe 10 mg tablet 10 mg PO QAM ascorbic acid (vitamin C) [Vitamin C] 1,000 mg Tablet 1 g PO HS cyanocobalamin (vitamin B-12) [Vitamin B-12] 1,000 mcg Tablet 500 mcg PO HS finasteride [Proscar] 5 mg Tablet 5 mg PO DAILY pregabalin 75 mg capsule 75 mg PO QID Eliquis 5 mg Tablet 5 mg PO BID Qty: 60 0RF spironolactone 25 mg tablet 0 mg PO QAM Hold Instructions: Resume on 07/22/25. Hold until further cardiology evaluation as outpatient in 1-2 weeks. Patient Comments: Original Directions: 12.5mg by mouth daily. Currently on hold, no restart date noted. 07/28/25 Jardiance 25 mg tablet 0 mg PO QAM Hold Instructions: Resume on 07/22/25. 20 mg by mouth three days per week on , , Fridays. Patient Comments: Original Directions: 25mg by mouth once daily. Currently on hold, no restart date noted. 07/28/25 amiodarone 200 mg Tablet 200 mg PO BIDM Qty: 60 0RF midodrine 2.5 mg tablet 2.5 mg PO TID sacubitril-valsartan [Entresto] 24-26 mg tablet 0 tab PO BID Patient Comments: Original Directions: [id number]: Take 1 tablet by mouth twice daily. Currently on hold, no restart date noted. 07/28/25 Referrals Referrals: Chava Bell MD [Primary Care Provider] - Discharge Problem: CHF (congestive heart failure) Qualifiers: Heart failure type: unspecified Heart failure chronicity: unspecified Qualified Code(s): I50.9 - Heart failure, unspecified
--- NOTE | 2025-07-28 12:06 | XRay Report ---
XR chest 1V portable CLINICAL HISTORY: Chest pain, nonspecific COMPARISON STUDY: 06/30/2025 FINDINGS: The heart is enlarged. There are postsurgical changes of a midline sternotomy. There is an implantable defibrillator present. There is no focal pulmonary consolidation. Note is made of a scoli osis. There is mild central vascular prominence without evidence of overt failure. There are no signi ficant pleural effusions. IMPRESSION: 1. Cardiomegaly 2. Mild central vascular prominence without evidence of overt failure 3. No evidence of acute parenchymal consolidation ACT 112: Negative or not required by law. Electronically signed by: Obdulio Ardon M.D. 07/28/2025 12:04 PM
[2025-07-28 12:09] LABS: Hematocrit (blood only) 35.3 % (42.0-52.0); Hemoglobin 11.8 g/dl (14.0-18.0); Immature Granulocytes # (auto) 0.01 K/uL (0.01-0.20); Immature Granulocytes % (auto) 0.2 %; Mean Corpuscular Hemoglobin 30.3 pg (25.0-34.0); Mean Corpuscular Volume 90.5 fL (80.0-100.0); Platelet Count 124 K/uL (130-400); RDW Standard Deviation 52.0 fL (36.4-46.3); Red Blood Count 3.90 M/uL (4.70-6.10); White Blood Count 4.54 K/ul (4.8-10.8)
[2025-07-28 12:54] LABS: Alanine Aminotransferase 20 U/L (7-52); Albumin Globulin Ratio 1.2 (0.9-2); Alkaline Phosphatase 58 U/L (34-104); Anion Gap 8 (3-11); Bilirubin,Total 0.7 mg/dl (0.2-1.0); Blood Urea Nitrogen 49 mg/dl (6-23); Calcium 8.5 mg/dl (8.6-10.3); Carbon Dioxide 25 mmol/L (21-32); Chloride 108 mmol/L (98-107); Globulin 3.0 gm/dl (2.5-4.0); Glucose 117 mg/dl (70-99(Fasting)); Lipase 35 U/L (11-82); Potassium 4.2 mmol/L (3.5-5.1); Sodium 141 mmol/L (136-145); Total Protein 6.6 gm/dl (6.0-8.3)
--- NOTE | 2025-07-28 13:56 | History & Physical Report ---
Date of Service July 28, 2025 Assessment & Plan (1) Acute on chronic heart failure with reduced ejection fraction (HFrEF, <= 40%): (2) Ischemic cardiomyopathy: (3) Transient hypotension: (4) History of orthostatic hypotension: (5) Vascular dementia: (6) Bilateral carotid artery stenosis: (7) Coronary artery disease: (8) Stage 3b chronic kidney disease (CKD): Plan Patient is a medically complex 79y/o male with PMHx significant for CAD s/p CABG x 2 with a FOLEY to the LAD and vein graft to the OM with follow-up STEMI and collapse of the vein graft [PCI to the LAD and RCA in March 2019 revealing a patent FOLEY], history of nonsustained ventricular tachycardia, ischemic cardiomyopathy and HFrEF [EF = 30-35% as of 06/24/25] with indwelling biventricular pacer defibrillator since July 2021, bilateral carotid artery stenosis, history of CVA at age 30 of unclear etiology with residual R-sided facial droop and R hand weakness/sensory deficit, PAD with failed PTCA of the arteries of his hip under questionable circumstances at an outside facility, PAF s/p PABLO/DCCV in February 2021, DMII, no flow in bilateral middle cerebral arteries with collateralization suggestive of chronic high-grade stenosis and/or occlusion, intermittent LBBB, labile HTN [with prior recommendations from neurology to keep BP on higher side to improve cerebral blood flow] with history of orthostatic syncope, vascular dementia, CKD stage IIIa, postgastric surgery syndrome and EDGAR who presented to the ED with primary complaint of gradual HOYT with weight gain of approximately 10lb since this past weekend despite diuretic compliance with 40mg po Lasix daily and a low-Na diet. Most recent confinement under our service 06/29/25-07/05/25 with acute on chronic HFrEF. Diuresis c/b transient hypotension and orthostatic syncope. Plan on DC from a cardiology standpoint was to continue amiodarone 200mg BID and Toprol-XL 25mg daily to better control PVC burden without jeopardizing blood pressure. Was also instructed to continue Eliquis and Plavix. Jardiance, Imdur and Entresto w ere placed on hold. Aldactone stopped. Was restarted on Lasix 20mg // at time of DC. Had been instructed to switch Lasix dosing to 20mg daily approximately 1wk following his last DC by his OP monument carver as he was slowly beginning to gain wt again. Baseline weight ~123kg or 272lb. Last week, during a visit with his [facility] lan administrator, he was noted to have a wt gain of ~2kg. He was instructed at that time to increase his Lasix to 40mg daily. Last dose of Lasix was this morning, 40mg. Wt today of 128.7kg --> wt gain of approximately 3kg since 07/21/25 (07/21 wt 125.6kg). #Acute on chronic HFrEF #Ischemic cardiomyopathy with indwelling biventricular pacer defibrillator since July 2021 #History of orthostatic syncope and transient hypotension BNP 302, wt gain ~3kg in the past week CXR: cardiomegaly, mild central vascular prominence w/o evidence of overt failure, no evidence of acute parenchymal consolidation 1+ BLE pitting edema, abd distention, faint bibasilar crackles appreciated on exam TTE, 06/24/25: EF 30-35%, LV wall thickness mildly increased in non-infarct segments, mildly dilated LV, large inferoposterior wall motion abnormality with scar, grade II DD consistent with elevated LA pressure, mild-mod MR, trace TR Will gently diuresis with IV Lasix 20mg daily for now given significant h/o transient hypotension, orthostasis -If there is any worsening of pt's BP, could consider IV albumin -Continue midodrine for now Appreciate formal cardiology consult for further recs For now will continue to hold Jardiance, Imdur and Entresto as previously recommended by cardiology Daily wts (standing BB if able), monitor I&Os Q4H Low-Na/HH/CC diet #Vascular dementia #Bilateral carotid artery stenosis #CAD s/p CABG x 2 with a FOLEY to the LAD and vein graft to the OM with follow-up STEMI and collapse of the vein graft, PCI to the LAD and RCA in March 2019 revea ling a patent FOLEY Evaluated by neuro during confinement 06/23/25-06/25/25 2/2 recent functional decline/amb dysfx with shuffling gait: suspect pt may have experienced a stroke 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 -CT head noted area of encephalomalacia/edema peripherally in right cerebellar hemisphere consistent with area of ischemic infarction of uncertain chronicity -MRI brain could not be obtained at this time as he has a [employer] biventricular pacemaker/AICD with left bundle lead which was placed in 2021 and having the left bundle lead plugged into the left ventricular port of the device is considered off label and therefore MRI brain cannot be performed at [facility] due to current radiology policy -CTA head and neck on 06/24/25 showed 90% stenosis of proximal left ICA due to extensive plaque, 40% stenosis of proximal right ICA, mod to severe stenosis of intracranial left vertebral artery and moderate stenosis of intracranial right vertebral artery, no significant flow seen in proximal middle cerebral arteries bilaterally Will need to have OP MRI brain study at [facility] --> this is scheduled for 09/22/25 Then has a same-day appt with Dr. Godfrey, neurosurgery, following the completion of his MRI to evaluate whether his left ICA stenosis can be intervened upon Continue Eliquis, Plavix, statin and Zetia #CKD stage IIIb A1 Follows with [facility] nephro, Dr. Kennedy Baseline Cr ~1.6-2 per chart review -Cr uptrend last admission c/w CRS per most recent nephro visit note Cr appears to be around baseline on admission Will continue to monitor closely with active IV diuresis, as per above #History of PVCs #PAF s/p PABLO+DCCV in February 2021 Continue amiodarone, Toprol-XL as previously recommended by cardiology #DMII with diabetic polyneuropathy Hgb A1c 6.9% as of 06/30/25 Jardiance placed on hold last admission as per cards SSI protocol while inpatient, monitor BSG checks ACHS Appreciate glycemic pharm assistance with insulin management #BPH Continue Proscar, Flomax for now -May need to consider holding Flomax if BP trend declines DVT Prophylaxis: Eliquis Disposition: Admit to PCU Patient seen in collaboration with Dr. Mckenzie. Please see addendum. I spent a total of 72 minutes coordinating, documenting, and providing care for this patient excluding time spent in the performance of separately billed services or time spent by another provider/QHP. This included personally reviewing all current laboratories and imaging studies, medical reconciliation, outpatient chart review and discussion with specialists. This chart was completed in part utilizing Speech Voice Recognition Software. Grammatical errors, random word insertions, pronoun errors, and incomplete sentences are an occasional consequence of this system due to software limitations, ambient noise, and hardware issues. Any formal questions or concerns about the content, text, or information contained within the body of this dictation should be directly addressed to the provider for clarification. History of Present Illness Chief Complaint: Dizziness, 10lb wt gain, SOB and weakness/fatigue Primary Care Provider: Chava Bell MD Patient is a medically complex 79-year-old male with PMHx significant for CAD s/p CABG x 2 with a FOLEY to the LAD and vein graft to the OM with follow-up STEMI and collapse of the vein graft [PCI to the LAD and RCA in March 2019 revealing a patent FOLEY], history of nonsustained ventricular tachycardia, ischemic cardiomyopathy and HFrEF [EF = 30-35% as of 06/24/25] with indwelling biventricular pacer defibrillator since July 2021, bilateral carotid artery stenosis, history of CVA at age 30 of unclear etiology with residual R-sided facial droop and R hand weakness/sensory deficit, PAD with failed PTCA of the arteries of his hip under questionable circumstances at an outside facility, PAF s/p PABLO/DCCV in February 2021, DMII, no flow in bilateral middle cerebral arteries with collateralization suggestive of chronic high-grade stenosis and/or occlusion, intermittent LBBB, labile HTN [with prior recommendations from neurology to keep BP on higher side to improve cerebral blood flow] with history of orthostatic syncope, vascular dementia, CKD stage IIIa, postgastric surgery syndrome and EDGAR who presented to the ED with multiple complaints including 10lb weight gain since Saturday, HOYT, dizziness, generalized weakness and fatigue. History primarily obtained from the patient's , Piper, at bedside with information supported by the patient during direct conversation. Additional history obtained from discussion with the ED provider and associated chart rev iew. Most recent confinement under our service 06/29/25-07/05/25 with acute on chronic HFrEF. Diuresis c/b transient hypotension and orthostatic syncope. Plan on DC from a cardiology standpoint was to continue amiodarone 200mg BID and Toprol-XL 25mg daily to better control PVC burden without jeopardizing blood pressure. Was also instructed to continue Eliquis and Plavix. Jardiance, Imdur and Entresto were placed on hold. Aldactone stopped. Was restarted on Lasix 20mg M/W/ at time of DC. Patient reportedly instructed to switch Lasix dosing to 20mg daily approximately 1 week following his last DC by his OP monument carver, Dr. Gann, as he was slowly beginning to gain weight again. Baseline weight ~123.37kg or 272lb. Last week, during a visit with his [facility] lan administrator, he was noted to have a weight gain of ~2kg. He was instructed at that time to increase his Lasix to 40mg daily. Despite this dose increase and following a low-Na diet, he has continued to gain ~10lb since this past Saturday. Last dose of Lasix was this morning, 40mg. Also with gradual dyspnea on exertion. 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 Patient admits to feeling more fatigued and overall weak as well over the past week which he has attributed to his progressive HOYT. No recent falls or trauma. Has been feeling dizzy as well with his fluctuating BP. Per his , his SBP range over the last week has been anywhere between 80 and 150 - with more notable drops upon standing which is consistent with his prior history of orthostasis. Patient had been started on midodrine 2.5mg TID by Dr. Gann following his DC last month - yet his BP still remains fluctuant despite medication compliance. Denies any cough, congestion, chest pain or abdominal pain. Feels his abdomen is more distended since Saturday, which typically occurs when he retains fluid. 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 Wt 128.7kg today, was previously 121.24kg on 07/05/25. Had OP visit with [facility] nephrology on 07/21/25 with recorded wt of 125.6kg. Allergies Allergy/AdvReac Type Severity Reaction Status Date / Time No Known Allergies Allergy Verified 07/28/25 14:02 Home Medications Medication Instructions Recorded Confirmed Type isosorbide mononitrate 30 mg 0 mg PO QAM #0 tabs 08/12/14 07/28/25 History tablet,extended release 24 hr nitroglycerin 0.4 mg sublingual 0.4 mg sublingual Q5M PRN Chest 08/15/17 07/28/25 History tablet Pain ##0 rosuvastatin 40 mg tablet 40 mg PO QAM 03/30/19 07/28/25 History tamsulosin 0.4 mg capsule 0.4 mg PO BID 03/30/19 07/28/25 History clopidogrel 75 mg tablet 75 mg PO QAM 03/15/21 07/28/25 History montelukast 10 mg tablet 10 mg PO QAM 03/15/21 07/28/25 History ezetimibe 10 mg tablet 10 mg PO QAM 07/29/21 07/28/25 History pregabalin 75 mg capsule 75 mg PO QID 05/10/22 07/28/25 History ascorbic acid (vitamin C) 1,000 mg 1 g PO HS 10/18/23 07/28/25 History tablet (Vitamin C) cyanocobalamin (vitamin B-12) 500 mcg PO HS 10/18/23 07/28/25 History 1,000 mcg tablet (Vitamin B-12) finasteride 5 mg tablet (Proscar) 5 mg PO DAILY 10/18/23 07/28/25 History apixaban 5 mg tablet (Eliquis) 5 mg PO BID #60 tabs 06/25/25 07/28/25 Rx empagliflozin 25 mg tablet 0 mg PO QAM 06/29/25 07/28/25 History (Jardiance) spironolactone 25 mg tablet 0 mg PO QAM 06/29/25 07/28/25 History amiodarone 200 mg tablet 200 mg PO BIDM #60 tabs 07/05/25 07/28/25 Rx furosemide 20 mg tablet 40 mg (2 x 20 mg) PO DAILY #180 07/21/25 07/28/25 Rx tabs metoprolol succinate 25 mg 25 mg PO DAILY 07/21/25 07/28/25 History tablet,extended release 24 hr midodrine 2.5 mg tablet 2.5 mg PO TID 07/28/25 07/28/25 History sacubitril 24 mg-valsartan 26 mg 0 tab PO BID 07/28/25 07/28/25 History tablet (Entresto) Past Med/Surg History Problem List Stage 3b chronic kidney disease (CKD) Bilateral carotid artery stenosis Transient hypotension History of orthostatic hypotension Weakness (Acute) CHF (congestive heart failure) (Acute) Shortness of breath (Acute) Advanced care planning/counseling discussion Counseling regarding advanced directives and goals of care Palliative care by specialist HOYT (dyspnea on exertion) (Acute) Pulmonary edema (Acute) History of CVA (cerebrovascular accident) Ischemic cardiomyopathy Vascular dementia Generalized weakness (Acute) Ambulatory dysfunction (Acute) NSVT (nonsustained ventricular tachycardia) (Acute) Acute exacerbation of CHF (congestive heart failure) (Acute) Acute on chronic heart failure with reduced ejection fraction (HFrEF, <= 40%) Lab test negative for COVID-19 virus (Acute) Chronic bundle branch block LBBB Dyslipidemia HTN (hypertension) Gout of knee Left knee DJD NSVT (nonsustained ventricular tachycardia) NSTEMI (non-ST elevated myocardial infarction) S/P repair of paraesophageal hernia (Chronic) History of Amie fundoplication (Chronic) H/O umbilical hernia repair (Chronic) x2 TIA (transient ischemic attack) (Chronic) Gout (Chronic) GERD (gastroesophageal reflux disease) (Chronic) Peripheral vascular disease (Chronic) Status post cataract extraction (Chronic) Status post repair of ventral hernia (Chronic) Status post tonsillectomy (Chronic) Medical History Orthostasis Acute kidney injury superimposed on CKD Acute hypokalemia Elevated troponin Pneumonia Sepsis 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 CKD (chronic kidney disease), stage III Cardiomyopathy, ischemic CKD (chronic kidney disease) stage 3, GFR 30-59 ml/min Elevated troponin LBBB (left bundle branch block) Atrial fibrillation with rapid ventricular response Stenosis of left internal carotid artery Ischemic cardiomyopathy DVT prophylaxis Paroxysmal A-fib CVA (cerebral vascular accident) GERD (gastroesophageal reflux disease) Diabetes Hypertension Coronary artery disease 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 Diabetes mellitus, type 2 Surgical History History of coronary artery stent placement LAD and RCA 2019 S/P CABG x 2 Family History Mother Stroke Denies family history of Crohn's disease Colorectal cancer Ulcerative colitis Social History Smoking Status: Never smoker Tobacco Type: Cigarettes Second Hand Exposure: No; Do You Dip or Chew Tobacco: No; Hx Alcohol Use: No Hx Substance Use: No Preferred Language: [place]i Communication Ability: Effective Communication Ability Comment: 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 Physical Exam Physical Exam: General: M, NAD, sitting up in bed, A&Ox3 with conversation, at bedside HEENT: Normocephalic, atraumatic, oropharynx normal Respiratory: Normal respiratory effort, faint bibasilar crackles, saturating ~98% on RA Cardiovascular: RRR, normal peripheral pulses, 1+ BLE pitting edema Abdomen/GI: Active bowel sounds, soft but distended, nontender to palpation in all quadrants, no guarding Extremities/Musculoskeletal: No cyanosis or clubbing, extremities motor strength intact, moves all extremities Neurologic: No overt focal deficits, CN's II-XI not formally tested but appear grossly intact bilaterally Results & Data Results & Data Vital Signs (Past 12 Hours) Vital Signs Temp Pulse Resp BP Pulse Ox O2 Del Method 07/28/25 12:00 61 23 106/74 95 07/28/25 11:33 63 17 99/66 L 95 07/28/25 11:31 67 07/28/25 11:26 108/64 07/28/25 11:14 95 Room Air 07/28/25 11:11 Room Air 07/28/25 11:07 36.7 C 64 18 88/52 L 94 Room Air Laboratory Results Short CBC 07/28/25 Range/Units 11:48 WBC 4.54 L (4.8-10.8) K/ul Hgb 11.8 L (14.0-18.0) g/dl Hct 35.3 L (42.0-52.0) % Plt Count 124 L (130-400) K/uL BMP 07/28/25 11:48 Sodium 141 Potassium 4.2 Chloride 108 H Carbon Dioxide 25 BUN 49 H Creatinine 2.04 H Glucose 117 H Calcium 8.5 L Liver Function 07/28/25 Range/Units 11:48 Total Bilirubin 0.7 (0.2-1.0) mg/dl AST 22 (13-39) U/L ALT 20 (7-52) U/L Alkaline Phosphatase 58 (34-104) U/L Albumin 3.6 (3.4-5.0) gm/dl Diagnostic Findings Chest X-Ray 07/28/25 11:14 XR chest 1V portable CLINICAL HISTORY: Chest pain, nonspecific COMPARISON STUDY: 06/30/2025 FINDINGS: The heart is enlarged. There are postsurgical changes of a midline sternotomy. There is an implantable defibrillator present. There is no focal pulmonary consolidation. Note is made of a scoliosis. There is mild central vascular prominence without evidence of overt failure. There are no significant pleural effusions. IMPRESSION: 1. Cardiomegaly 2. Mild central vascular prominence without evidence of overt failure 3. No evidence of acute parenchymal consolidation ACT 112: Negative or not required by law. Electronically signed by: Obdulio Ardon M.D. 07/28/2025 12:04 PM Code Status & VTE Plan Code Status FULL CODE - As per discussion with the patient and his , Piper, at bedside in the ED. Supervising Physician Co-Signing Physician Notes 79-year-old male with PMH of CAD status post CABG x 2, nonsustained ventricular tachycardia, ischemic cardiomyopathy, HFrEF [EF 30 to 35%] with indwelling biventricular pacer defibrillator since July 2021, bilateral carotid artery stenosis, CVA with residual right-sided facial droop and right hand weakness/sensory deficit and other complex conditions presents to the ED with worsening shortness of breath and weight gain. Patient's was also at bedside who reports that patient has been compliant with his diet/fluid intake/medicines and doctors follow-up upon discharge. She reports that his Lasix dose has been increased and up to 40 mg daily since about 7 days prior to arrival. She reports that patient's shortness of breath started to appear last Saturday and has been really worse since Saturday. She states that since Saturday patient has gained about 11 pounds in weight and patient reports that he feels tight around his abdomen and he has extreme shortness of breath with any activity. Patient denies belly pain/chest pain/diarrhea. Patient reports appetite has been normal. Labs and imagings reviewed, creatinine slightly elevated/about baseline. Patient states she already took his Lasix in the morning, plan to give him additional 20 mg IV Lasix due to concern of his fluctuating blood pressure. Cardiology consult, telemetry monitoring. On exam: Patient on room air, 1+ BLE edema, bibasilar crackles, distended abdomen/nontender. Rest of the examination as above. I have seen and examined the patient and have discussed the case with the provider above. I agree with the assessment and plan as stated. Total time spent independently: 24 minutes. (5) Vascular dementia Dementia behavioral or psychological symptom: unspecified whether behavioral, psychotic, or mood disturbance or anxiety Dementia severity: unspecified severity Qualified Code(s): F01.50 - Vascular dementia, unspecified severity, without behavioral disturbance, psychotic disturbance, mood disturbance, and anxiety (7) Coronary artery disease Associated angina: without angina Coronary Disease-Associated Artery/Lesion type: unspecified vessel or lesion type [place] vs. transplanted heart: [place] heart Qualified Code(s): I25.10 - Atherosclerotic heart disease of [place] coronary artery without angina pectoris
[2025-07-28] MEDS: FUROSEMIDE 40 MG/4 ML VIAL IV ONE (14:08)
--- NOTE | 2025-07-28 16:15 | Electrocardiogram Report ---
Test Reason : Blood Pressure : */* mmHG Vent. Rate : 60 BPM Atrial Rate : 60 BPM P-R Int : 166 ms QRS Dur : 136 ms QT Int : 468 ms P-R-T Axes : 165 -26 154 degrees QTcB Int : 468 ms AV dual-paced rhythm Abnormal ECG When compared with ECG of 03-Jul-2025 12:22, Premature ventricular complexes are no longer Present Vent. rate has decreased by 5 bpm Confirmed by Steven Hensley ([id number]) on 07/28/2025 4:15:30 PM Referred By: REFERRED SELF Confirmed By: Steven Hensley
[2025-07-28] MEDS ORDERED: MAGNESIUM HYDROXIDE SUSP 30 ML UDC PO PRN (18:10)
[2025-07-28] MEDS ORDERED: GLUCOSE 40% GEL 15 GM TUBE PO PRN (18:10)
[2025-07-28] MEDS ORDERED: CARBOHYDRATES FOR HYPOGLYCEMIA PO PRN (18:10)
[2025-07-28] MEDS ORDERED: PHARMACY GLYCEMIC MGMT CONSULT PRN (18:10)
[2025-07-28] MEDS ORDERED: DEXTROSE 50% 50 ML SYRINGE IV PRN (18:10)
[2025-07-28] MEDS ORDERED: PROMETHAZINE 6.25 MG/50.25 ML BAG IV PRN (18:10)
[2025-07-28] MEDS ORDERED: ACETAMINOPHEN 325 MG TAB PO PRN (18:10)
[2025-07-28] MEDS ORDERED: GLUCOSE 10 TAB/TUBE PO PRN (18:10)
[2025-07-28] MEDS ORDERED: GLUCAGON FOR INJ 1 MG VIAL SQ PRN (18:10)
--- NOTE | 2025-07-28 18:30 | Pharmacy Report ---
Pharmacy Glycemic Short Note 2 - Date of Service July 28, 2025 - Glycemic Short BSG Results (Last 24 hours): 07/28/25 07/28/25 11:48 18:18 Glucose 117 H POC Glucose 86 OUTPATIENT ANTIDIABETIC REGIMEN: * Jardiance 25 mg PO daily HbA1c: * 6.9% (06/30/25) ASSESSMENT: * 79 yo M admitted on 07/28/25 secondary to heart failure exacerbation. Pharmacy has been consulted to assist with inpatient glycemic management. Patient is a Type 2 diabetic as an outpatient. Please refer to outpatient regimen and most recent HbA1c above. * Admission BSG was 117 mg/dL. Patient is ordered a T2DM diet, will follow to see how patient tolerates. * Will base inpatient insulin orders on previous admission data from last month. Holding basal. Novolog only. PLAN FOR INPATIENT GLYCEMIC CONTROL: * Hold outpatient oral diabetes medications * Basal insulin * Hold * Bolus insulin * NovoLog per scale ACHS or Q6hrs while NPO * Goal Range: Low 110 mg/dL - High 140 mg/dL * Correction Factor: 35 mg/dL/unit * Nutritional / Prandial insulin per carb ratio of 1 unit per 12 grams CHO consumed
[2025-07-28] MEDS: INSULIN ASPART PER UNIT CHARGE SC SCH (18:34)
[2025-07-28] MEDS: FUROSEMIDE INJ 20 MG/2 ML VIAL IV SCH (19:29)
[2025-07-28] MEDS: MIDODRINE HCL 2.5 MG TAB PO SCH (19:29)
[2025-07-28] MEDS: AMIODARONE 200 MG TAB PO SCH (19:30)
[2025-07-28] MEDS: PREGABALIN 75 MG CAP PO SCH (20:52)
[2025-07-28] MEDS: APIXABAN 5 MG TABLET PO SCH (20:52)
[2025-07-28] MEDS: CYANOCOBALAMIN (B-12) 500 MCG TABLET PO SCH (20:52)
[2025-07-28] MEDS: TAMSULOSIN HCL 0.4 MG CAP PO SCH (20:53)
[2025-07-28] MEDS: MELATONIN 3 MG TAB PO PRN (21:08)
[2025-07-29 06:52] LABS: Hematocrit (blood only) 38.7 % (42.0-52.0); Hemoglobin 12.9 g/dl (14.0-18.0); Immature Granulocytes # (auto) 0.00 K/uL (0.01-0.20); Immature Granulocytes % (auto) 0.0 %; Mean Corpuscular Hemoglobin 29.9 pg (25.0-34.0); Mean Corpuscular Volume 89.6 fL (80.0-100.0); Platelet Count 117 K/uL (130-400); RDW Standard Deviation 50.0 fL (36.4-46.3); Red Blood Count 4.32 M/uL (4.70-6.10); White Blood Count 4.59 K/ul (4.8-10.8)
[2025-07-29 07:07] LABS: Anion Gap 7.0 (3-11); Blood Urea Nitrogen 45.0 mg/dl (6-23); Calcium 9.3 mg/dl (8.6-10.3); Carbon Dioxide 29.0 mmol/L (21-32); Chloride 105.0 mmol/L (98-107); Creatinine Clr Calc Pharmacy 45.3 ml/min; Glucose 94.0 mg/dl (70-99(Fasting)); Magnesium 2.3 mg/dl (1.7-2.4); Potassium 3.9 mmol/L (3.5-5.1); Sodium 141.0 mmol/L (136-145)
[2025-07-29] MEDS: EZETIMIBE 10 MG TAB PO SCH (09:13)
[2025-07-29] MEDS: CLOPIDOGREL BISULFATE 75 MG TAB PO SCH (09:13)
[2025-07-29] MEDS: METOPROLOL SUCC 25MG EXT REL TAB PO SCH (09:13)
[2025-07-29] MEDS: FINASTERIDE 5 MG TAB PO SCH (09:13)
[2025-07-29] MEDS: ROSUVASTATIN CALCIUM 20 MG TAB PO SCH (09:14)
[2025-07-29] MEDS: MONTELUKAST SODIUM 10 MG TABLET PO SCH (09:14)
--- NOTE | 2025-07-29 10:17 | Cardiology Consultation ---
Date of Consultation July 29, 2025 Assessment & Plan (1) Acute on chronic heart failure with reduced ejection fraction (HFrEF, <= 40%) and combined systolic and diastolic dysfunction: (2) Ischemic cardiomyopathy: (3) Stage 3b chronic kidney disease (CKD): (4) Paroxysmal A-fib: Plan 79-year-old male admitted with acute on chronic heart failure with reduced ejection fraction. Jardiance, Imdur, and Entresto discontinued during most recent hospitalization 07/05/2025 due to orthostatic hypotension and resting hypotension. Current exacerbation exacerbated by recent de-escalation of heart failure therapies. Recommendations: * Titrate Lasix to 40 mg IV twice daily. * Consider transition from oral furosemide to torsemide at time of discharge. * Patient will need initiation of diuretic protocol in the outpatient setting to effectively manage volume status. * Restrict sodium intake to less than 1.5 g daily. * Restrict fluid intake to less than 1.5 L daily. * Monitor fluid balance, daily weight, GFR, and electrolytes. * Restart Jardiance 10 mg daily. Tony Bradley DO, [facility] History of Present Illness Reason for Consultation: Acute on chronic heart failure with reduced ejection fraction Requesting Physician: Cristy Carrasquillo PA-C Attending Physician: Jerrell Nicholson DO History of Present Illness 79-year male presents to the ER with dizziness, shortness of breath, weakness, fatigue, and 10 pound weight gain. Complex cardiovascular history noted below. Recently hospitalized 06/29/2025 - 07/05/2025 with acute on chronic heart failure with reduced ejection fraction. Followed up in the cardiology clinic with concerns regarding abdominal bloating and fluctuating weight. Weight up approximately 7 pounds during that visit. Diuretic therapy was not adjusted at that time. Outpatient diuretic dose furosemide 40 mg daily. Currently patient is not using a diuretic protocol in the outpatient setting.Jardiance, Imdur, and Entresto discontinued during most recent hospitalization due to orthostatic hypotension and resting hypotension. Feeling somewhat better since admission. Fluid balance -1.1 L. Serum creatinine near baseline. Reports profound dyspnea and abdominal bloating with weight gain prior to admission. Denies any noncompliance with current medications. Denies any dietary indiscretions including excessive sodium or fluid intake. Cardiac Problems: 1. Coronary artery disease S/P CABG x2 with a FOLEY to the LAD and vein graft to the OM with follow-up STEMI and collapse of the vein graft, PCI to the LAD and RCA March 2019 revealing a patent FOLEY 3. H/O Nonsustained ventricular tachycardia 4. Ischemic cardiomyopathy, EF 30-34%, improved to 40-45%, now reduced to 30-34% on recent echo, NYHA class 3 5. Carotid artery stenosis- Follows with Vascular 6. History of CVA 7. Peripheral arterial disease with failed PTCA of the arteries of his hip under questionable circumstances at an outside facility 8. Paroxysmal atrial fibrillation, S/P PABLO/DCCV 03/16/2021, on amiodarone and Eliquis 9. Diabetes type 2 10. No flow in bilateral middle cerebral arteries with collateralization suggestive of chronic high-grade stenosis and/or occlusion 11. Intermittent LBBB 12. BIV AICD implant in Jul 2021 13. History of labile hypertension - with prior recommendations from neurology to keep BP on higher side to improve cerebral blood flow Allergies Allergy/AdvReac Type Severity Reaction Status Date / Time No Known Allergies Allergy Verified 07/28/25 14:02 Home Medications Medication Instructions Recorded Confirmed Type isosorbide mononitrate 30 mg 0 mg PO QAM #0 tabs 08/12/14 07/28/25 History tablet,extended release 24 hr nitroglycerin 0.4 mg sublingual 0.4 mg sublingual Q5M PRN Chest 08/15/17 07/28/25 History tablet Pain ##0 rosuvastatin 40 mg tablet 40 mg PO QAM 03/30/19 07/28/25 History tamsulosin 0.4 mg capsule 0.4 mg PO BID 03/30/19 07/28/25 History clopidogrel 75 mg tablet 75 mg PO QAM 03/15/21 07/28/25 History montelukast 10 mg tablet 10 mg PO QAM 03/15/21 07/28/25 History ezetimibe 10 mg tablet 10 mg PO QAM 07/29/21 07/28/25 History pregabalin 75 mg capsule 75 mg PO QID 05/10/22 07/28/25 History ascorbic acid (vitamin C) 1,000 mg 1 g PO HS 10/18/23 07/28/25 History tablet (Vitamin C) cyanocobalamin (vitamin B-12) 500 mcg PO HS 10/18/23 07/28/25 History 1,000 mcg tablet (Vitamin B-12) finasteride 5 mg tablet (Proscar) 5 mg PO DAILY 10/18/23 07/28/25 History apixaban 5 mg tablet (Eliquis) 5 mg PO BID #60 tabs 06/25/25 07/28/25 Rx empagliflozin 25 mg tablet 0 mg PO QAM 06/29/25 07/28/25 History (Jardiance) spironolactone 25 mg tablet 0 mg PO QAM 06/29/25 07/28/25 History amiodarone 200 mg tablet 200 mg PO BIDM #60 tabs 07/05/25 07/28/25 Rx furosemide 20 mg tablet 40 mg (2 x 20 mg) PO DAILY #180 07/21/25 07/28/25 Rx tabs metoprolol succinate 25 mg 25 mg PO DAILY 07/21/25 07/28/25 History tablet,extended release 24 hr midodrine 2.5 mg tablet 2.5 mg PO TID 07/28/25 07/28/25 History sacubitril 24 mg-valsartan 26 mg 0 tab PO BID 07/28/25 07/28/25 History tablet (Entresto) Patient History Medical History Orthostasis Acute kidney injury superimposed on CKD Acute hypokalemia Elevated troponin Pneumonia Sepsis 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 CKD (chronic kidney disease), stage III Cardiomyopathy, ischemic CKD (chronic kidney disease) stage 3, GFR 30-59 ml/min Elevated troponin LBBB (left bundle branch block) Atrial fibrillation with rapid ventricular response Stenosis of left internal carotid artery Ischemic cardiomyopathy DVT prophylaxis Paroxysmal A-fib CVA (cerebral vascular accident) GERD (gastroesophageal reflux disease) Diabetes Hypertension Coronary artery disease 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 Diabetes mellitus, type 2 Surgical History History of coronary artery stent placement LAD and RCA 2019 S/P CABG x 2 Family History Mother Stroke Denies family history of Crohn's disease Colorectal cancer Ulcerative colitis Social History (Reviewed 07/29/25 @ 10:20 by ISIDRA Edwards Smoking Status: Never smoker Tobacco Type: Cigarettes Second Hand Exposure: No; Do You Dip or Chew Tobacco: No; Hx Alcohol Use: No Hx Substance Use: No Preferred Language: [place] Communication Ability: Effective Communication Ability Comment: [phone] 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 Required: No Beliefs That Will Affect Care: None marital status: Current Living Situation: Spouse current occupation: Retired Other Information That Helps Us Care for You: No Feels Safe at Home: Yes Safety Concerns: Feels Safe At This Time Assistive Devices: Cane, Scooter/Electric Scooter, Walker and Wheelchair Review of Systems Review of Systems: All systems reviewed & are unremarkable except as noted in Subjective Physical Exam Constitutional: + obese; no acute distress Respiratory: no respiratory distress and no labored breathing Auscultation: + rales (Bases bilateral); no rhonchi and no wheezes Cardiovascular: Rate/Rhythm: regular rate and regular rhythm Heart Sounds: normal S1 and normal S2; no murmur Vessels: + JVD, femoral pulses present and radial pulses present Extremities: no edema Gastrointestinal (Abdomen): Inspection/Auscultation: + abdomen distended Percussion/Palpation: abdomen soft; abdomen nontender, no guarding and abdomen not rigid Neurologic: CN's II-XI intact bilaterally and moves all extremities; no focal motor deficits Results & Data Vital Signs (Past 12 Hours) Vital Signs Temp Pulse Resp BP BP Pulse Ox O2 Del Method 07/29/25 08:26 36.6 C 63 18 102/65 95 Room Air 07/29/25 02:57 36.4 C L 81 18 142/86 H 96 Room Air 07/28/25 22:38 36.4 C L 89 18 160/96 H 94 Room Air Laboratory Results Cardiac Enzymes 07/28/25 Range/Units 11:48 AST 22 (13-39) U/L Troponin I High Sens 6.8 (0-20) pg/ml B-Natriuretic Peptide 302 H (0-100) pg/ml Coagulation 07/28/25 Range/Units 11:48 B-Natriuretic Peptide 302 H (0-100) pg/ml CBC 07/28/25 07/29/25 Range/Units 11:48 06:30 WBC 4.54 L 4.59 L (4.8-10.8) K/ul RBC 3.90 L 4.32 L (4.70-6.10) M/uL Hgb 11.8 L 12.9 L (14.0-18.0) g/dl Hct 35.3 L 38.7 L (42.0-52.0) % Plt Count 124 L 117 L (130-400) K/uL Neut # (Auto) 2.87 2.56 (1.40-6.50) K/uL Lymph # (Auto) 0.94 L 1.28 (1.20-3.40) K/uL [place] # (Auto) 0.48 0.49 (0.11-0.59) K/uL Eos # (Auto) 0.19 0.19 (0.00-0.50) K/uL Baso # (Auto) 0.05 0.07 (0.00-0.20) K/uL Comprehensive Metabolic Panel 07/28/25 07/29/25 Range/Units 11:48 06:30 Sodium 141 141 (136-145) mmol/L Potassium 4.2 3.9 (3.5-5.1) mmol/L Chloride 108 H 105 (98-107) mmol/L Carbon Dioxide 25 29 (21-32) mmol/L BUN 49 H 45 H (6-23) mg/dl Creatinine 2.04 H 1.94 H (0.6-1.4) mg/dl Glucose 117 H 94 (70-99(Fasting)) mg/dl Calcium 8.5 L 9.3 (8.6-10.3) mg/dl AST 22 (13-39) U/L ALT 20 (7-52) U/L Alkaline Phosphatase 58 (34-104) U/L Total Protein 6.6 (6.0-8.3) gm/dl Albumin 3.6 (3.4-5.0) gm/dl Intake and Output 07/28/25 07/29/25 07/29/25 22:59 06:59 14:59 Intake Total 400 / 800 400 / 800 Output Total 400 / 1000 600 / 1000 975 / 975 Balance 0 / -200 -200 / -200 -975 / -975 Intake: Oral 400 / 800 400 / 800 Output: Urine 400 / 1000 600 / 1000 975 / 975 Other: # Unmeasured Voids 2 # Bowel Movement Diapers 1 Weight 124.1 kg 124.1 kg Weight Measurement Method Standing Scale Patient Weight 07/30/25 06:59 Weight 124.1 kg Diagnostic Findings Echocardiogram 06/24/2025: LVEF 30-35% Apical wall motion abnormality may reflect pacemaker activation. Large inferior posterior wall motion abnormality with scar. Mild to moderate mitral regurgitation Trace tricuspid regurgitation PG Care Time/CCT Total # of Minutes Spent Total Time Spent with Patient: Total time spent is greater than 50% in coordination of care (as documented) at patient's floor/unit and/or counseling patient: Coding Level of Care Code 34285 INT INP/OBS CARE 3/75MIN Diagnoses Acute on chronic heart failure with reduced ejection fraction (HFrEF, <= 40%) and combined systolic and diastolic dysfunction I50.43 Ischemic cardiomyopathy I25.5 Stage 3b chronic kidney disease (CKD) N18.32 Paroxysmal A-fib I48.0
[2025-07-29] MEDS: EMPAGLIFLOZIN 10 MG TAB PO SCH (13:04)
--- NOTE | 2025-07-29 13:31 | Hospitalist Progress Note ---
Date of Service July 29, 2025 Assessment & Plan (1) Acute on chronic heart failure with reduced ejection fraction (HFrEF, <= 40%): (2) Ischemic cardiomyopathy: (3) Transient hypotension: (4) History of orthostatic hypotension: (5) Vascular dementia: (6) Bilateral carotid artery stenosis: (7) Coronary artery disease: (8) Stage 3b chronic kidney disease (CKD): Plan #Acute on chronic HFrEF -EF 30% -Compliant with home lasix -BNP elevated. CXR clear -Endorsing HOYT and orthopnea -NO O2 requirements Plan -Appreciate cardio input -Continue IV lasix BID -Fluid restriction + low Na diet -Monitor renal function, electrolytes, IO -GDMT as tolerated #CAD -S/p CABG -No chest pain -Continue home plavix/eliquis and cardiac regimen #History of VT -Continue amio toprol #CKD3 -Watch closely while on IV diuretics -Avoid nephrotoxic agents if possible #Orthostatic hypotension -Continue midodrine #History of CVA -Continue home regimen #DM -SSI BGM ACHS #Vascular dementia -AOx3 -High risk for delirium -Avoid nephrotoxic agents if possible Admission and Anticipated Discharge Date Admission Date: July 28, 2025 Subjective Feeling well today. endorses HOYT. Patient denies F/C, CP, palpitations, SOB, dyspnea, abd pain, N/V/D UPdated on phone Physical Exam Physical Exam: Vitals and labs reviewed General: Well appearing, NAD HEENT: EOMI, PERRLA Neck: Supple Cardiac: RRR no rubs gallops or murmurs Lungs: CTA no rhonchi wheezing or rales Abd: S NT ND BS positive : Deffered MSK: Full ROM. No obvious deformities Ext: 1+ b/l LE pitting edema Skin: Warm, Dry Neuro: AOx3 No focal deficits. Psych: Normal Mood Results & Data Results & Data Vital Signs (Past 12 Hours) Vital Signs Temp Pulse Resp BP BP Pulse Ox O2 Del Method 07/29/25 10:55 36.7 C 63 18 126/75 93 Room Air 07/29/25 08:26 36.6 C 63 18 102/65 95 Room Air 07/29/25 02:57 36.4 C L 81 18 142/86 H 96 Room Air (5) Vascular dementia Dementia severity: unspecified severity Dementia behavioral or psychological symptom: unspecified whether behavioral, psychotic, or mood disturbance or anxiety Qualified Code(s): F01.50 - Vascular dementia, unspecified severity, without behavioral disturbance, psychotic disturbance, mood disturbance, and anxiety (7) Coronary artery disease Coronary Disease-Associated Artery/Lesion type: unspecified vessel or lesion type [place] vs. transplanted heart: [place] heart Associated angina: without angina Qualified Code(s): I25.10 - Atherosclerotic heart disease of [place] coronary artery without angina pectoris
[2025-07-29] MEDS: FUROSEMIDE 40 MG/4 ML VIAL IV SCH (17:35)
[2025-07-30] MEDS: ALBUT/IPRATROP 3MG/0.5MG NEB 3 ML VIAL NEB STA (03:34)
[2025-07-30] MEDS: MELATONIN 3 MG TAB PO STA (03:43)
[2025-07-30 07:06] LABS: Anion Gap 10.0 (3-11); Blood Urea Nitrogen 51.0 mg/dl (6-23); Calcium 9.4 mg/dl (8.6-10.3); Carbon Dioxide 27.0 mmol/L (21-32); Chloride 101.0 mmol/L (98-107); Creatinine Clr Calc Pharmacy 34.3 ml/min; Glucose 105.0 mg/dl (70-99(Fasting)); Potassium 3.8 mmol/L (3.5-5.1); Sodium 138.0 mmol/L (136-145)
--- NOTE | 2025-07-30 09:44 | Hospitalist Progress Note ---
Date of Service July 30, 2025 Assessment & Plan (1) Acute on chronic heart failure with reduced ejection fraction (HFrEF, <= 40%): (2) Ischemic cardiomyopathy: (3) Transient hypotension: (4) History of orthostatic hypotension: (5) Vascular dementia: (6) Bilateral carotid artery stenosis: (7) Coronary artery disease: (8) Stage 3b chronic kidney disease (CKD): Plan #Acute on chronic HFrEF -EF 30% -Compliant with home lasix -BNP elevated. CXR clear -Endorsing HOYT and orthopnea -NO O2 requirements Plan -Appreciate cardio input - has requested nephrology evaluate, appreciate input -Cr rising. Hold further lasix until evaluated by nephro -Fluid restriction + low Na diet -Monitor renal function, electrolytes, IO -GDMT as tolerated #CAD -S/p CABG -No chest pain -Continue home plavix/eliquis and cardiac regimen #History of VT -Continue amio toprol #PAF -POA -Rate controlled -Continue eliquis, amio, and toprol #CKD3 -Cr increased to 2.5 from 1.9 yesterday -Baseline Cr around 1.9-2.0 -Watch closely while on IV diuretics -Avoid nephrotoxic agents if possible -Nephro following #Orthostatic hypotension -Continue midodrine #History of CVA -Continue home regimen #DM -SSI BGM ACHS #Vascular dementia -AOx3 -High risk for delirium -Avoid nephrotoxic agents if possible #Carotid stenosis -Chronic issue -OP f/u Carlos on 09/22 I spent a total of 36 minutes coordinating, documenting, and providing care for this patient excluding time spent in the performance of separately billed services. This included personally reviewing all current laboratories and imaging studies, medical reconciliation, outpatient chart review and discussion with specialists Admission and Anticipated Discharge Date Admission Date: July 28, 2025 Subjective Feeling well today. endorses HOYT. Patient denies F/C, CP, palpitations, SOB, dyspnea, abd pain, N/V/D D/w at bedside Physical Exam Physical Exam: Vitals and labs reviewed General: Well appearing, NAD HEENT: EOMI, PERRLA Neck: Supple Cardiac: RRR no rubs gallops or murmurs Lungs: CTA no rhonchi wheezing or rales Abd: S NT ND BS positive : Deffered MSK: Full ROM. No obvious deformities Ext: 1+ b/l LE pitting edema Skin: Warm, Dry Neuro: AOx3 No focal deficits. Psych: Normal Mood Results & Data Results & Data Vital Signs (Past 12 Hours) Vital Signs Temp Pulse Pulse Resp BP Pulse Ox O2 Del Method 07/30/25 09:13 60 07/30/25 07:25 Room Air 07/30/25 07:17 36.4 C L 87 18 121/80 96 Room Air 07/30/25 03:37 68 18 97 Room Air 07/30/25 02:59 36.4 C L 63 18 103/69 96 Room Air 07/29/25 23:03 60 07/29/25 22:57 36.3 C L 73 16 117/64 93 Room Air Laboratory Results Abnormal lab results 07/29/25 07/30/25 07/30/25 Range/Units 20:16 06:17 07:13 BUN 51 H (6-23) mg/dl Creatinine 2.53 H D (0.6-1.4) mg/dl BUN/Creatinine Ratio 20.2 H (10-20) Glucose 105 H (70-99(Fasting)) mg/dl POC Glucose 147 H 100 H (70-99) mg/dl (5) Vascular dementia Dementia severity: unspecified severity Dementia behavioral or psychological symptom: unspecified whether behavioral, psychotic, or mood disturbance or anxiety Qualified Code(s): F01.50 - Vascular dementia, unspecified severity, without behavioral disturbance, psychotic disturbance, mood disturbance, and anxiety (7) Coronary artery disease Coronary Disease-Associated Artery/Lesion type: unspecified vessel or lesion type [place] vs. transplanted heart: [place] heart Associated angina: without angina Qualified Code(s): I25.10 - Atherosclerotic heart disease of [place] coronary artery without angina pectoris
--- NOTE | 2025-07-30 11:55 | Pharmacy Report ---
Pharmacy Glycemic Sign Off Nt - Date of Service July 30, 2025 - Assessment & Plan ASSESSMENT: * Pharmacy was consulted by Cristy AHMADI on 07/28 for glycemic control and to write orders per [facility] inpatient glycemic control protocol. * Major changes made by pharmacy to antidiabetic regimen include: * added novolog scale * Patient has been receiving minimal insulin to maintain adequate blood sugar control. Reasonable to continue with SSI novolog. Could consider adding in CR if BSGs trending upward. PLAN FOR INPATIENT GLYCEMIC CONTROL: No changes needed to current regimen. * No basal insulin warranted * Continue NovoLog per scale ACHS/Q6hrs while NPO * Goal range = 120 - 160 mg/dl * CF = 35 mg/dl/unit * CR = 1 unit for ever -- g CHO consumed * Pharmacy is signing off of glycemic consult and will no longer be making adjustments to inpatient regimen. Please feel free to re-consult if needed. Thank you.
--- NOTE | 2025-07-30 12:39 | Cardiology Progress Note ---
Date of Service July 30, 2025 Assessment & Plan (1) Acute on chronic heart failure with reduced ejection fraction (HFrEF, <= 40%) and combined systolic and diastolic dysfunction: (2) Ischemic cardiomyopathy: (3) Stage 3b chronic kidney disease (CKD): (4) Paroxysmal A-fib: Plan 79-year-old male admitted with acute on chronic heart failure with reduced ejection fraction. Jardiance, Imdur, and Entresto discontinued during most recent hospitalization 07/05/2025 due to orthostatic hypotension and resting hypotension. Jardiance restarted yesterday. Serum creatinine trending upward. Weight down 7 pounds since admission. A.m. dose of furosemide placed on hold. Recommendations: * Hold Lasix today. * Repeat basic metabolic panel in AM. * Transition from oral furosemide 40mg daily to torsemide 40mg daily at time of discharge. * Patient will need initiation of diuretic protocol in the outpatient setting to effectively manage volume status. * Restrict sodium intake to less than 1.5 g daily. * Restrict fluid intake to less than 1.5 L daily. * Continue midodrine, amiodarone, apixaban, clopidogrel, Toprol-XL, and rosuvastatin. * Appreciate nephrology input. Tony Bradley DO, [facility] Admission and Anticipated Discharge Date Admission Date: July 28, 2025 Subjective 79-year-old male seen and examined at bedside. Fluid balance -3.4 L. Weight is down 7 pounds since admission. Creatinine trending upward to 2.53 from 1.9. From trivial sinus rhythm and AV paced rhythm. Patient feeling well today. Notes reduced abdominal bloating. No edema, orthopnea, or PND. Jardiance restarted yesterday. Review of Systems Review of Systems: All systems reviewed & are unremarkable except as noted in Subjective Physical Exam Constitutional: + obese; no acute distress Respiratory: no respiratory distress and no labored breathing Auscultation: no rales (Bases bilateral), no rhonchi and no wheezes Cardiovascular: Rate/Rhythm: regular rate and regular rhythm Heart Sounds: normal S1 and normal S2; no murmur Vessels: femoral pulses present and radial pulses present; no JVD Extremities: no edema Gastrointestinal (Abdomen): Inspection/Auscultation: + abdomen distended Percussion/Palpation: abdomen soft; abdomen nontender, no guarding and abdomen not rigid Neurologic: CN's II-XI intact bilaterally and moves all extremities; no focal motor deficits Results & Data Vital Signs (Past 12 Hours) Vital Signs Temp Pulse Pulse Resp BP Pulse Ox O2 Del Method 07/30/25 11:21 36.4 C L 60 20 116/75 91 Room Air 07/30/25 09:13 60 07/30/25 07:25 Room Air 07/30/25 07:17 36.4 C L 87 18 121/80 96 Room Air 07/30/25 03:37 68 18 97 Room Air 07/30/25 02:59 36.4 C L 63 18 103/69 96 Room Air Laboratory Results Comprehensive Metabolic Panel 07/30/25 Range/Units 06:17 Sodium 138 (136-145) mmol/L Potassium 3.8 (3.5-5.1) mmol/L Chloride 101 (98-107) mmol/L Carbon Dioxide 27 (21-32) mmol/L BUN 51 H (6-23) mg/dl Creatinine 2.53 H D (0.6-1.4) mg/dl Glucose 105 H (70-99(Fasting)) mg/dl Calcium 9.4 (8.6-10.3) mg/dl Intake and Output 07/29/25 07/30/25 07/30/25 22:59 06:59 14:59 Output Total 2049 / 5 700 / 3725 Balance -2050 / -3725 -700 / -3725 Output: Urine 2049 700 / 3725 Other: Weight 121 kg Weight Measurement Method Standing Scale PG Care Time/CCT Total # of Minutes Spent Total Time Spent with Patient: Total time spent is greater than 50% in coordination of care (as documented) at patient's floor/unit and/or counseling patient: Coding Level of Care Code 60728 SUB INP/OBS CARE 3/50MIN Diagnoses Acute on chronic heart failure with reduced ejection fraction (HFrEF, <= 40%) and combined systolic and diastolic dysfunction I50.43 Ischemic cardiomyopathy I25.5 Stage 3b chronic kidney disease (CKD) N18.32 Paroxysmal A-fib I48.0
--- NOTE | 2025-07-30 14:19 | Nephrology Consultation ---
Date of Consultation July 30, 2025 Assessment & Plan (1) MCKENZIE (acute kidney injury): Non-oliguric. Volume status acceptable. Electrolytes normal. There is no emergent indication for dialysis. Change in creatinine is likely hemodynamically mediated (recent significant diuresis + chronic hypotension with associated low EAV combined with recent addition of empagliflozin). Tulio was advised that some hemodynamic changes in creatinine may be tolerated when adjusting/starting new medications or as needed during diuresis. Diuretics have been held today. Document strict I/O's. Repeat a serum metabolic profile tomorrow AM. Medications are appropriate for kidney function. If creatinine continues to rise, a dose adjustment of rosuvastatin may be considered. (2) Stage 3b chronic kidney disease (CKD): CKD IIIb A1. CKD attributed to arterionephrosclerosis and CRS. Baseline creatinine 1.6-2.0 mg/dL. Electrolytes normal. Low sodium diet. Defer restarting RAASi or SGLT2i for now pending close follow up. (3) Acute on chronic heart failure with reduced ejection fraction (HFrEF, <= 40%) and combined systolic and diastolic dysfunction: SGLT2i therapy started yesterday. RAASi (Entresto and spironolactone) held due to labile creatinine and hypotension. Volume status improved with IV diuretics. Tulio does not seem to respond as well to oral furosemide at home. Plan to start PO torsemide tomorrow. Daily standing weight and strict I/O's to be documented. Plan of care was discussed with cardiology this AM. (4) Ischemic cardiomyopathy: Maintained on midodrine for chronic hypotension. Tolerating therapy reasonably well. (5) BPH (benign prostatic hyperplasia): Symptoms controlled with finasteride and tamsulosin. History of Present Illness Reason for Consultation: PTKY. MCKENZIE on CKD Requesting Physician: Jerrell Nicholson DO Attending Physician: Jerrell Nicholson DO History of Present Illness Mr. Tulio Becerra is a 79 year-old male with chronic kidney disease and ischemic cardiomyopathy who presented to [facility] on July 28 with volume overload. Tulio recently established care with me in [place] [facility] [place]. At that time, furosemide had been recently increased to 40 mg daily. Unfortunately, he reported continued evidence of fluid retention, notably abdominal bloating/distention and progressive weight gain. Tulio presented to the ER on 07/28 with a 10 lbs weight gain from his baseline. Documentation suggests that he was experiencing associated dyspnea and dizziness. Tulio recalls feeling well. He told me today that he generally does not typically experience symptoms until he has significant concerning amounts of fluid retention + decompensated CHF. He can retain up to 10+ lbs without symptoms, except for increasing abdominal distention. During his recent hospitalization, evaluation included an abdominal US which did not demonstrate any abdominal ascites. Throughout this admission, he has lost 7 lbs with a negative fluid balance of at least 5 liters documented. Tulio received furosemide 40 mg IV x 2 doses yesterday with a net negative fluid balance of 3.4 L documented. I discussed the patient's history and plan of care with Dr. Bradley this AM. Serum creatinine at baseline had been ~1.8-2.0 mg/dL. Creatinine bumped to 2.5 mg/dL. Furosemide has been held today. Tulio was recently admitted to [facility] last month with decompensated CHF and MCKENZIE. Tulio had been struggling with hypotension affecting his ability to tolerate medical therapy. He was started on midodrine 5 mg daily last month. Weight on hospital discharge was 264 lbs. At baseline, Tulio's activity tolerance has been reduced/limited due to exertional dyspnea. He is regaining strength following his recent hospitalization. He does not typically present with lower extremity edema during episodes of decompensated CHF. Tulio relates that he tends to hold fluid in his abdomen. Abdominal US obtained during hospitalization did not demonstrate ascites. Tulio adherences to a 1.5 L daily fluid restriction and he maintains a low sodium diet. He is maintained on furosemide 20 mg daily (previously every other day or every 3 days). Empagliflozin, isosorbide mononitrate, Entresto, and spironolactone have been held due to symptomatic hypotension and elevated serum creatinine. Baseline creatinine is ~1.6-2.0 mg/dL. Tulio has not had proteinuria by history. No imaging of the kidneys is available for review. Medical history is notable for coronary artery disease (CABG x 2 -- FOLEY to LAD and vein graft to the OM; STEMI d/t collapse of the vein graft; PCI to the LAD and RCA in March 2019 revealing a patent FOLEY), h/o NSVT, ischemic cardiomyopathy (LVEF 30-35%, - May 2025), HFrEF s/p BIV AICD in July 2021, bilateral carotid artery stenosis, history of CVA at age 30 of unclear etiology with residual R-sided facial droop and R hand weakness/sensory deficit, PAD with failed PTCA of the arteries of his hip under questionable circumstances at an outside facility, PAF s/p PABLO/DCCV in February 2021, DMII, no flow in bilateral middle cerebral arteries with collateralization suggestive of chronic high-grade stenosis and/or occlusion, intermittent LBBB, labile HTN with prior recommendations from neurology to keep BP on higher side to improve cerebral blood flow, vascular dementia, CKD stage IIIb A1, postgastric surgery syndrome and EDGAR. Several recent hospitalizations in May and June. TTE, 06/24/25: EF 30-35%, LV wall thickness mildly increased in non-infarct segments, mildly dilated LV, large inferoposterior wall motion abnormality with scar, grade II DD consistent with elevated LA pressure, mild-mod MR, trace TR. Allergies Allergy/AdvReac Type Severity Reaction Status Date / Time No Known Allergies Allergy Verified 07/28/25 14:02 Home Medications Medication Instructions Recorded Confirmed Type isosorbide mononitrate 30 mg 0 mg PO QAM #0 tabs 08/12/14 07/28/25 History tablet,extended release 24 hr nitroglycerin 0.4 mg sublingual 0.4 mg sublingual Q5M PRN Chest 08/15/17 07/28/25 History tablet Pain ##0 rosuvastatin 40 mg tablet 40 mg PO QAM 03/30/19 07/28/25 History tamsulosin 0.4 mg capsule 0.4 mg PO BID 03/30/19 07/28/25 History clopidogrel 75 mg tablet 75 mg PO QAM 03/15/21 07/28/25 History montelukast 10 mg tablet 10 mg PO QAM 03/15/21 07/28/25 History ezetimibe 10 mg tablet 10 mg PO QAM 07/29/21 07/28/25 History pregabalin 75 mg capsule 75 mg PO QID 05/10/22 07/28/25 History ascorbic acid (vitamin C) 1,000 mg 1 g PO HS 10/18/23 07/28/25 History tablet (Vitamin C) cyanocobalamin (vitamin B-12) 500 mcg PO HS 10/18/23 07/28/25 History 1,000 mcg tablet (Vitamin B-12) finasteride 5 mg tablet (Proscar) 5 mg PO DAILY 10/18/23 07/28/25 History apixaban 5 mg tablet (Eliquis) 5 mg PO BID #60 tabs 06/25/25 07/28/25 Rx empagliflozin 25 mg tablet 0 mg PO QAM 06/29/25 07/28/25 History (Jardiance) spironolactone 25 mg tablet 0 mg PO QAM 06/29/25 07/28/25 History amiodarone 200 mg tablet 200 mg PO BIDM #60 tabs 07/05/25 07/28/25 Rx furosemide 20 mg tablet 40 mg (2 x 20 mg) PO DAILY #180 07/21/25 07/28/25 Rx tabs metoprolol succinate 25 mg 25 mg PO DAILY 07/21/25 07/28/25 History tablet,extended release 24 hr midodrine 2.5 mg tablet 2.5 mg PO TID 07/28/25 07/28/25 History sacubitril 24 mg-valsartan 26 mg 0 tab PO BID 07/28/25 07/28/25 History tablet (Entresto) Patient History Medical History (Updated 07/30/25 @ 17:53 by Fer Kennedy DO) BPH (benign prostatic hyperplasia) Orthostasis Acute kidney injury superimposed on CKD Acute hypokalemia Elevated troponin Pneumonia Sepsis 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 CKD (chronic kidney disease), stage III Cardiomyopathy, ischemic CKD (chronic kidney disease) stage 3, GFR 30-59 ml/min Elevated troponin LBBB (left bundle branch block) Atrial fibrillation with rapid ventricular response Stenosis of left internal carotid artery Ischemic cardiomyopathy DVT prophylaxis CVA (cerebral vascular accident) GERD (gastroesophageal reflux disease) Diabetes Hypertension Coronary artery disease 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 Diabetes mellitus, type 2 Surgical History History of coronary artery stent placement LAD and RCA 2019 S/P CABG x 2 Family History Mother Stroke Denies family history of Crohn's disease Colorectal cancer Ulcerative colitis Social History Smoking Status: Never smoker Tobacco Type: Cigarettes Second Hand Exposure: No; Do You Dip or Chew Tobacco: No; Hx Alcohol Use: No Hx Substance Use: No Preferred Language: Frisian Communication Ability: Effective Communication Ability Comment: [phone] 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: No Beliefs That Will Affect Care: None marital status: Current Living Situation: Spouse current occupation: Retired Other Information That Helps Us Care for You: No Feels Safe at Home: Yes Safety Concerns: Feels Safe At This Time Assistive Devices: Cane, Scooter/Electric Scooter, Walker and Wheelchair Review of Systems Review of Systems: All systems reviewed & are unremarkable except as noted in HPI & below Physical Exam Constitutional: well developed and + morbidly obese; no acute distress Eyes: + anicteric sclerae ENMT: Mouth: no oral mucosal abnormality and oral mucous membranes not dry Neck: normal visual inspection and trachea midline Respiratory: normal respiratory effort Auscultation: lungs clear to auscultation bilaterally Cardiovascular: Rate/Rhythm: regular rate Heart Sounds: normal S1 and normal S2 Extremities: + edema Chest (Breasts): Additional Comments: Pacer Musculoskeletal: Extremities: no cyanosis and no clubbing Skin: normal turgor; no jaundice Neurologic: Motor/Sensory: no tremor and no asterixis Psychiatric: Orientation: alert and oriented x 3 Results & Data Vital Signs (Past 12 Hours) Vital Signs Temp Pulse Pulse Resp BP Pulse Ox O2 Del Method 07/30/25 11:21 36.4 C L 60 20 116/75 91 Room Air 07/30/25 09:13 60 07/30/25 07:25 Room Air 07/30/25 07:17 36.4 C L 87 18 121/80 96 Room Air 07/30/25 03:37 68 18 97 Room Air 07/30/25 02:59 36.4 C L 63 18 103/69 96 Room Air Laboratory Results Laboratory Results - last 24 hr 07/29/25 07/29/25 07/30/25 16:09 20:16 06:17 Sodium 138 Potassium 3.8 Chloride 101 Carbon Dioxide 27 Anion Gap 10 BUN 51 H Creatinine 2.53 H D Est Cr Clr Drug Dosing 34.3 eGFR 25.45 BUN/Creatinine Ratio 20.2 H Glucose 105 H POC Glucose 96 147 H Calcium 9.4 07/30/25 07/30/25 07:13 11:10 Sodium Potassium Chloride Carbon Dioxide Anion Gap BUN Creatinine Est Cr Clr Drug Dosing eGFR BUN/Creatinine Ratio Glucose POC Glucose 100 H 94 Calcium Diagnostic Findings XR chest 1V portable COMPARISON STUDY: 06/30/2025 FINDINGS: The heart is enlarged. There are postsurgical changes of a midline sternotomy. There is an implantable defibrillator present. There is no focal pulmonary consolidation. Note is made of a scoliosis. There is mild central vascular prominence without evidence of overt failure. There are no significant pleural effusions. IMPRESSION: 1. Cardiomegaly 2. Mild central vascular prominence without evidence of overt failure 3. No evidence of acute parenchymal consolidation PG Care Time/CCT Total # of Minutes Spent Total Time Spent with Patient: Total time spent is greater than 50% in coordination of care (as documented) at patient's floor/unit and/or counseling patient: Coding Level of Care Code 86712 IN/OBS CONSULT LVL 5,80M Diagnoses MCKENZIE (acute kidney injury) N17.9 Stage 3b chronic kidney disease (CKD) N18.32 Acute on chronic heart failure with reduced ejection fraction (HFrEF, <= 40%) and combined systolic and diastolic dysfunction I50.43 Ischemic cardiomyopathy I25.5 BPH (benign prostatic hyperplasia) N40.0
[2025-07-30] MEDS: MELATONIN 3 MG TAB PO PRN (22:51)
[2025-07-31] MEDS: ALBUT/IPRATROP 3MG/0.5MG NEB 3 ML VIAL NEB STA (07:25)
[2025-07-31 07:29] LABS: Anion Gap 7.0 (3-11); Blood Urea Nitrogen 56.0 mg/dl (6-23); Calcium 9.3 mg/dl (8.6-10.3); Carbon Dioxide 29.0 mmol/L (21-32); Chloride 103.0 mmol/L (98-107); Creatinine Clr Calc Pharmacy 33.7 ml/min; Glucose 112.0 mg/dl (70-99(Fasting)); Potassium 4.5 mmol/L (3.5-5.1); Sodium 139.0 mmol/L (136-145)
--- NOTE | 2025-07-31 08:20 | XRay Report ---
XR chest 1V portable CLINICAL HISTORY: Shortness of breath. COMPARISON STUDY: Chest radiograph July 28, 2025. Chest CT March 30, 2019. FINDINGS: Postoperative findings within the cervical spine, a left subclavian pacer and median sterno spike wires are noted. Cardiomegaly is unchanged. There is no evidence for pulmonary edema. No pneumot horax or pleural effusion is present. There is no consolidation to suggest pneumonia. IMPRESSION: No acute cardiopulmonary findings. ACT 112: Negative or not required by law. Electronically signed by: Dexter Ibarra M.D. 07/31/2025 8:18 AM
--- NOTE | 2025-07-31 09:30 | Nephrology Progress Note ---
Date of Service July 31, 2025 Assessment & Plan (1) MCKENZIE (acute kidney injury): Plan: * Nonoliguric MCKENZIE - multifactorial including CMP, low EAV * Furosemide was held yesterday. UO 1.5 L last shift * Electrolyte balance is acceptable. Cr stable at 2.5 * Continue to hold diuretics today * Monitor I&O, obtain BMP in am * Once Cr is trending down will start torsemide therapy * Continue to hold entresto due to MCKENZIE (2) Stage 3b chronic kidney disease (CKD): Plan: * CKD IIIb A1. CKD attributed to arterionephrosclerosis and CRS. Baseline creatinine 1.6-2.0 mg/dL. (3) Acute on chronic heart failure with reduced ejection fraction (HFrEF, <= 40%) and combined systolic and diastolic dysfunction: Plan: * SGLT2i therapy started yesterday. RAASi (Entresto and spironolactone) held due to labile creatinine and hypotension * Daily standing weight and strict I/O's to be documented * Reviewed weight based dosing of torsemide therapy w/ patient and his this morning (4) Ischemic cardiomyopathy: Plan: * Maintained on midodrine for chronic hypotension (5) BPH (benign prostatic hyperplasia): Plan: * Symptoms controlled with finasteride and tamsulosin. Admission and Anticipated Discharge Date Admission Date: July 28, 2025 Subjective Mr. Becerra was evaluated in his hospital room this morning. He was breathing comfortably flat in bed on RA. Mr. Becerra c/o abdominal distention and noted that he remains above his target weight of 264 lbs. He does however report brisk UO. Review of Systems Constitutional: no fever Eyes: no problem reported Ear, Nose, Mouth, Throat: no problem reported Respiratory: no cough and no dyspnea Cardiovascular: no chest pain and no dyspnea at rest Gastrointestinal: + problem reported (fluid retention); no nausea, no vomiting and no diarrhea/loose stools Genitourinary: no dysuria, no difficulty urinating, no hematuria or no flank pain Integumentary: no rash Physical Exam Constitutional: not in distress Eyes: PERRL, conjunctivae normal, anicteric sclerae ENMT: external ear and nose normal, oropharynx normal Neck: trachea midline, no thyromegaly Respiratory: normal respiratory effort, lungs clear to auscultation Cardiovascular: RRR, no murmur, no edema Gastrointestinal (Abdomen): normal bowel sounds, soft, nontender, no hepatosplenomegaly Inspection/Auscultation: + abdomen distended Musculoskeletal: Extremities: no cyanosis and no clubbing Skin: no rashes, warm and dry Neurologic: no focal motor deficits Results & Data Vital Signs (Past 12 Hours) Vital Signs Temp Pulse Pulse Resp BP Pulse Ox O2 Del Method 07/31/25 07:41 36.5 C 67 18 110/71 91 Room Air 07/31/25 07:25 67 18 94 Nasal Cannula 07/31/25 06:45 Nasal Cannula 07/31/25 04:23 36.7 C 59 L 20 120/73 98 Nasal Cannula 07/31/25 00:02 36.7 C 72 18 126/76 97 Nasal Cannula 07/30/25 21:47 60 O2 Flow Rate 07/31/25 07:41 07/31/25 07:25 07/31/25 06:45 2 07/31/25 04:23 2 07/31/25 00:02 2 07/30/25 21:47 Laboratory Results Laboratory Results - last 24 hr 07/30/25 07/30/25 07/30/25 11:10 16:25 20:28 Sodium Potassium Chloride Carbon Dioxide Anion Gap BUN Creatinine Est Cr Clr Drug Dosing eGFR BUN/Creatinine Ratio Glucose POC Glucose 94 182 H 118 H Calcium 07/31/25 07/31/25 06:47 07:35 Sodium 139 Potassium 4.5 Chloride 103 Carbon Dioxide 29 Anion Gap 7 BUN 56 H Creatinine 2.58 H Est Cr Clr Drug Dosing 33.7 eGFR 24.86 BUN/Creatinine Ratio 21.7 H Glucose 112 H POC Glucose 119 H Calcium 9.3 PG Care Time/CCT Total # of Minutes Spent Total Time Spent with Patient: Total time spent is greater than 50% in coordination of care (as documented) at patient's floor/unit and/or counseling patient: Coding Level of Care Code 84581 SUB INP/OBS CARE 3/50MIN Diagnoses MCKENZIE (acute kidney injury) N17.9 Stage 3b chronic kidney disease (CKD) N18.32 Acute on chronic heart failure with reduced ejection fraction (HFrEF, <= 40%) and combined systolic and diastolic dysfunction I50.43 Ischemic cardiomyopathy I25.5 BPH (benign prostatic hyperplasia) N40.0
--- NOTE | 2025-07-31 11:53 | Hospitalist Progress Note ---
Date of Service July 31, 2025 Assessment & Plan (1) Acute on chronic heart failure with reduced ejection fraction (HFrEF, <= 40%): (2) Ischemic cardiomyopathy: (3) Transient hypotension: (4) History of orthostatic hypotension: (5) Vascular dementia: (6) Bilateral carotid artery stenosis: (7) Coronary artery disease: (8) Stage 3b chronic kidney disease (CKD): Plan #Acute on chronic HFrEF -EF 30% -Compliant with home lasix -BNP elevated. CXR clear -Endorsing HOYT and orthopnea -NO O2 requirements -Reviewed CXR 07/31, Plan -Appreciate cardio and nephro input -Holding diuretics until Cr downtrends -Fluid restriction + low Na diet -Monitor renal function, electrolytes, IO -GDMT as tolerated #CAD -S/p CABG -No chest pain -Continue home plavix/eliquis and cardiac regimen #History of VT -Continue amio toprol #PAF -POA -Rate controlled -Continue eliquis, amio, and toprol #CKD3 -Cr increased to 2.5 from 1.9 on 07/29 -Cr unchanged at 2.5 today -Baseline Cr around 1.9-2.0 -Watch closely while on IV diuretics -Avoid nephrotoxic agents if possible -Nephro following #Orthostatic hypotension -Continue midodrine #History of CVA -Continue home regimen #DM -SSI BGM ACHS #Vascular dementia -AOx3 -High risk for delirium -Avoid nephrotoxic agents if possible #Carotid stenosis -Chronic issue -OP f/u Carlos on 09/22 I spent a total of 41 minutes coordinating, documenting, and providing care for this patient excluding time spent in the performance of separately billed services. This included personally reviewing all current laboratories and imaging studies, medical reconciliation, outpatient chart review and discussion with specialists Admission and Anticipated Discharge Date Admission Date: July 28, 2025 Subjective Patient seen twice this AM. he is feeling well and has no complaints. d/w and daughter at bedside x 2 today. Physical Exam Physical Exam: Vitals and labs reviewed General: Well appearing, NAD HEENT: EOMI, PERRLA Neck: Supple Cardiac: RRR no rubs gallops or murmurs Lungs: CTA no rhonchi wheezing or rales Abd: S NT ND BS positive MSK: Full ROM. No obvious deformities Ext: No Edema cyanosis Skin: Warm, Dry Neuro: AOx3 No focal deficits. Psych: Normal Mood Results & Data Results & Data Vital Signs (Past 12 Hours) Vital Signs Temp Pulse Resp BP Pulse Ox O2 Del Method O2 Flow Rate 07/31/25 07:41 36.5 C 67 18 110/71 91 Room Air 07/31/25 07:25 67 18 94 Nasal Cannula 07/31/25 06:45 Nasal Cannula 2 07/31/25 04:23 36.7 C 59 L 20 120/73 98 Nasal Cannula 2 07/31/25 00:02 36.7 C 72 18 126/76 97 Nasal Cannula 2 Laboratory Results Abnormal lab results 07/30/25 07/30/25 07/31/25 Range/Units 16:25 20:28 06:47 BUN 56 H (6-23) mg/dl Creatinine 2.58 H (0.6-1.4) mg/dl BUN/Creatinine Ratio 21.7 H (10-20) Glucose 112 H (70-99(Fasting)) mg/dl POC Glucose 182 H 118 H (70-99) mg/dl 07/31/25 07/31/25 Range/Units 07:35 11:35 BUN (6-23) mg/dl Creatinine (0.6-1.4) mg/dl BUN/Creatinine Ratio (10-20) Glucose (70-99(Fasting)) mg/dl POC Glucose 119 H 107 H (70-99) mg/dl Diagnostic Findings Chest X-Ray 07/31/25 06:35 XR chest 1V portable CLINICAL HISTORY: Shortness of breath. COMPARISON STUDY: Chest radiograph July 28, 2025. Chest CT March 30, 2019. FINDINGS: Postoperative findings within the cervical spine, a left subclavian pacer and median sternotomy wires are noted. Cardiomegaly is unchanged. There is no evidence for pulmonary edema. No pneumothorax or pleural effusion is present. There is no consolidation to suggest pneumonia. IMPRESSION: No acute cardiopulmonary findings. ACT 112: Negative or not required by law. Electronically signed by: Dexter Ibarra M.D. 07/31/2025 8:18 AM (5) Vascular dementia Dementia severity: unspecified severity Dementia behavioral or psychological symptom: unspecified whether behavioral, psychotic, or mood disturbance or anxiety Qualified Code(s): F01.50 - Vascular dementia, unspecified severity, without behavioral disturbance, psychotic disturbance, mood disturbance, and anxiety (7) Coronary artery disease Coronary Disease-Associated Artery/Lesion type: unspecified vessel or lesion type [place] vs. transplanted heart: [place] heart Associated angina: without angina Qualified Code(s): I25.10 - Atherosclerotic heart disease of [place] coronary artery without angina pectoris
[2025-07-31 15:04] LABS: Protein Creatinine Ratio Urine 0.6 (0-0.2); Total Protein Urine Random 47.2 mg/dl (0-11.9)
--- NOTE | 2025-07-31 15:44 | Cardiology Progress Note ---
Date of Service July 31, 2025 Assessment & Plan (1) Acute on chronic heart failure with reduced ejection fraction (HFrEF, <= 40%) and combined systolic and diastolic dysfunction: (2) Ischemic cardiomyopathy: (3) Stage 3b chronic kidney disease (CKD): (4) Paroxysmal A-fib: Plan 79-year-old male admitted with acute on chronic heart failure with reduced ejection fraction. Jardiance, Imdur, and Entresto discontinued during most recent hospitalization 07/05/2025 due to orthostatic hypotension and resting hypotension. Jardiance restarted yesterday. Serum creatinine trending upward. Weight down 7 pounds since admission. A.m. dose of furosemide placed on hold. Recommendations: -Lasix remains on hold today. Cr with some improvement 2.58 -Strict I&O, daily weights and close lab monitoring. Goal serum K> 4.0 and serum Mag > 2.0 -Trend labs in AM. If Cr continues to improve, plan is to restart oral diuretics but switch to Torsemide 40mg PO QD -Strict low Na diet less than 1.5G per day; fluid restriction of 1500ml per day -Continues to diurese well, -1410ml fluid balance -last cardiac cath dates back to march 2019 in which he received 2 stents. There was no other notation of progressive stenosis noted in other vessels. -Continue midodrine, amiodarone, Eliquis, Plavix, Toprol xl and Crestor -Appreciate any recs from nephrology for ongoing management of volume status. Case has been discussed with Dr. Post. Further recommendations regarding plan of care as per her assessment. I spent a total of 30 minutes on the date of service in preparation, delivery, documentation of the care provided to the patient excluding any time spent in the performance of separately billed services. 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 He is being diuresed I have reviewed the advanced practitioner's documentation on the date of service referenced in note, and I agree with, and take responsibility for the plan of care. I spent a total of [15] minutes coordinating, documenting, and providing care for this patient excluding time spent in the performance of separately billed services or time spent by another provider. Subjective 07/31/2025: Patient seen and examined in follow up today. Feeling well today. offers no acute cardiac concerns. Family currently at bedside. Labs, vitals, diagnostics, telemetry and documentation reviewed. Telemetry reviewed showing V-paced. (hx of ICD). No acute events overnight. Review of Systems Review of Systems: All systems reviewed & are unremarkable except as noted in HPI & below Physical Exam Constitutional: well developed and well nourished; no acute distress and not ill appearing Neck: normal visual inspection and trachea midline Respiratory: normal respiratory effort, lungs clear to auscultation Cardiovascular: Rate/Rhythm: regular rate and regular rhythm Heart Sounds: + murmur (+1/6 systolic) Vessels: no JVD Extremities: + edema (trace BLE) Skin: no rashes, warm and dry Psychiatric: A+Ox3, euthymic affect Results & Data Vital Signs (Past 12 Hours) Vital Signs Temp Pulse Pulse Resp BP Pulse Ox O2 Del Method 07/31/25 13:54 64 07/31/25 11:31 36.3 C L 64 18 111/71 94 Room Air 07/31/25 08:00 60 07/31/25 07:41 36.5 C 67 18 110/71 91 Room Air 07/31/25 07:25 67 18 94 Nasal Cannula 07/31/25 06:45 Nasal Cannula 07/31/25 04:23 36.7 C 59 L 20 120/73 98 Nasal Cannula O2 Flow Rate 07/31/25 13:54 07/31/25 11:31 07/31/25 08:00 07/31/25 07:41 07/31/25 07:25 07/31/25 06:45 2 07/31/25 04:23 2 Laboratory Results Comprehensive Metabolic Panel 07/31/25 Range/Units 06:47 Sodium 139 (136-145) mmol/L Potassium 4.5 (3.5-5.1) mmol/L Chloride 103 (98-107) mmol/L Carbon Dioxide 29 (21-32) mmol/L BUN 56 H (6-23) mg/dl Creatinine 2.58 H (0.6-1.4) mg/dl Glucose 112 H (70-99(Fasting)) mg/dl Calcium 9.3 (8.6-10.3) mg/dl Intake and Output 07/31/25 07/31/25 07/31/25 06:59 14:59 22:59 Intake Total 100 / 340 240 / 240 Output Total 750 / 1750 600 / 600 Balance -650 / -1410 -360 / -360 Intake: Oral 100 / 340 240 / 240 Output: Urine 750 / 1750 600 / 600 Other: Weight 121.8 kg Weight Measurement Method Standing Scale PG Care Time/CCT Total # of Minutes Spent Total Time Spent with Patient: Total time spent is greater than 50% in coordination of care (as documented) at patient's floor/unit and/or counseling patient: [place] [address] SUB INP/OBS CARE 3/50MIN Patient Type Established Diagnoses Acute on chronic heart failure with reduced ejection fraction (HFrEF, <= 40%) and combined systolic and diastolic dysfunction I50.43 Ischemic cardiomyopathy I25.5 Stage 3b chronic kidney disease (CKD) N18.32 Paroxysmal A-fib I48.0 Time Spent (min) 40
[2025-08-01 07:20] LABS: Anion Gap 7.0 (3-11); Blood Urea Nitrogen 59.0 mg/dl (6-23); Calcium 8.8 mg/dl (8.6-10.3); Carbon Dioxide 28.0 mmol/L (21-32); Chloride 105.0 mmol/L (98-107); Creatinine Clr Calc Pharmacy 38.5 ml/min; Glucose 129.0 mg/dl (70-99(Fasting)); Potassium 4.2 mmol/L (3.5-5.1); Sodium 140.0 mmol/L (136-145)
--- NOTE | 2025-08-01 08:18 | Nephrology Progress Note ---
Date of Service August 01, 2025 Assessment & Plan (1) MCKENZIE (acute kidney injury): Plan: * Nonoliguric MCKENZIE - multifactorial including CMP, low EAV * MCKENZIE is improving. Electrolyte balance is acceptable. Cr 2.2 this am * Patient still has abdominal swelling but no peripheral edema. Electrolyte balance is acceptable * Start torsemide 40 mg daily. Advised spouse to monitor daily weight and abdominal girth. If weight increases by > 2 lbs or patient develops signs of fluid retention/increasing abdominal ascites, then increase torsemide to 40 mg BID for up to 3 days or until symptoms resolve, then resume torsemide 40 mg daily. Also advised her to hold torsemide for GI illness or signs of dehydration * Continue to hold entresto due to MCKENZIE, relative hypotension. Will defer management of entresto to cardiology * Mr. Becerra can be discharged from a nephrology perspective. I have placed an order in the outpatient EMR for my nursing staff to contact him and schedule a follow-up appointment with Dr. Kennedy in 7-14 days. I have also placed orders in the EMR to obtain nonfasting BMP, Mg, CBC, urinalysis with microscopy at [facility] lab 1-2 days prior to OV. (2) Stage 3b chronic kidney disease (CKD): Plan: * CKD 3b/A1. CKD attributed to arterionephrosclerosis and CRS. Baseline creatinine 1.6-2.0 mg/dL. (3) Acute on chronic heart failure with reduced ejection fraction (HFrEF, <= 40%) and combined systolic and diastolic dysfunction: Plan: * SGLT2i therapy started yesterday. RAASi (Entresto and spironolactone) held due to labile creatinine and hypotension * Continue daily standing weight and I/O's while hospitalized * Reviewed weight based dosing of torsemide therapy w/ patient and his this morning (4) Ischemic cardiomyopathy: Plan: * Maintained on midodrine for chronic hypotension (5) BPH (benign prostatic hyperplasia): Plan: * Symptoms controlled with finasteride and tamsulosin. Admission and Anticipated Discharge Date Admission Date: July 28, 2025 Subjective Mr. Becerra was evaluated in his hospital room this morning. He was breathing comfortably flat in bed on RA. He did not require oxygen overnight. Mr. Becerra reports that his abdominal distention has improved. He maintains brisk UO Review of Systems Constitutional: no fever Eyes: no problem reported Ear, Nose, Mouth, Throat: no problem reported Respiratory: no cough and no dyspnea Cardiovascular: no chest pain and no dyspnea at rest Gastrointestinal: + problem reported (fluid retention); no nausea, no vomiting and no diarrhea/loose stools Genitourinary: no dysuria, no difficulty urinating, no hematuria or no flank pain Integumentary: no rash Physical Exam Constitutional: not in distress Eyes: PERRL, conjunctivae normal, anicteric sclerae ENMT: external ear and nose normal, oropharynx normal Neck: trachea midline, no thyromegaly Respiratory: normal respiratory effort, lungs clear to auscultation Cardiovascular: RRR, no murmur, no edema Gastrointestinal (Abdomen): normal bowel sounds, soft, nontender, no hepatosplenomegaly Inspection/Auscultation: + abdomen distended Musculoskeletal: Extremities: no cyanosis and no clubbing Skin: no rashes, warm and dry Neurologic: no focal motor deficits Results & Data Vital Signs (Past 12 Hours) Vital Signs Temp Pulse Pulse Resp BP Pulse Ox O2 Del Method 08/01/25 08:15 36.7 C 63 16 111/77 95 Room Air 08/01/25 06:45 Room Air 08/01/25 02:42 36.5 C 65 18 114/69 95 Room Air 07/31/25 23:57 36.5 C 60 18 117/72 95 Room Air 07/31/25 21:55 65 Laboratory Results Laboratory Results - last 24 hr 07/31/25 07/31/25 07/31/25 11:35 14:35 15:58 Sodium Potassium Chloride Carbon Dioxide Anion Gap BUN Creatinine Est Cr Clr Drug Dosing eGFR BUN/Creatinine Ratio Glucose POC Glucose 107 H 183 H Calcium Ur Random Creatinine 80.4 U Random Total Protein 47.2 H Protein/Creatinin Ratio 0.6 H 07/31/25 08/01/25 08/01/25 20:55 06:15 07:27 Sodium 140 Potassium 4.2 Chloride 105 Carbon Dioxide 28 Anion Gap 7 BUN 59 H Creatinine 2.26 H D Est Cr Clr Drug Dosing 38.5 eGFR 29.14 BUN/Creatinine Ratio 26.1 H Glucose 129 H POC Glucose 151 H 103 H Calcium 8.8 Ur Random Creatinine U Random Total Protein Protein/Creatinin Ratio PG Care Time/CCT Total # of Minutes Spent Total Time Spent with Patient: Total time spent is greater than 50% in coordination of care (as documented) at patient's floor/unit and/or counseling patient: Coding Level of Care Code 68184 SUB INP/OBS CARE 3/50MIN Diagnoses MCKENZIE (acute kidney injury) N17.9 Stage 3b chronic kidney disease (CKD) N18.32 Acute on chronic heart failure with reduced ejection fraction (HFrEF, <= 40%) and combined systolic and diastolic dysfunction I50.43 Ischemic cardiomyopathy I25.5 BPH (benign prostatic hyperplasia) N40.0
[2025-08-01] MEDS: POLYETHYLENE (MIRALAX) 17 GM PACK PO PRN (08:26)
--- NOTE | 2025-08-01 08:39 | Cardiology Progress Note ---
Date of Service August 01, 2025 Assessment & Plan (1) Acute on chronic heart failure with reduced ejection fraction (HFrEF, <= 40%) and combined systolic and diastolic dysfunction: (2) Ischemic cardiomyopathy: (3) Stage 3b chronic kidney disease (CKD): (4) Paroxysmal A-fib: Plan 79-year-old male admitted with acute on chronic heart failure with reduced ejection fraction. Jardiance, Imdur, and Entresto discontinued during most recent hospitalization 07/05/2025 due to orthostatic hypotension and resting hypotension. Jardiance restarted yesterday. Serum creatinine trending upward. Weight down 7 pounds since admission. A.m. dose of furosemide placed on hold. Recommendations: -Lasix remains on hold today. Cr with some improvement 2.58 -Strict I&O, daily weights and close lab monitoring. Goal serum K> 4.0 and serum Mag > 2.0 -Trend labs in AM. If Cr continues to improve, plan is to restart oral diuretics but switch to Torsemide 40mg PO QD -Strict low Na diet less than 1.5G per day; fluid restriction of 1500ml per day -Continues to diurese well, -1410ml fluid balance -last cardiac cath dates back to march 2019 in which he received 2 stents. There was no other notation of progressive stenosis noted in other vessels. -Continue midodrine, amiodarone, Eliquis, Plavix, Toprol xl and Crestor -Appreciate any recs from nephrology for ongoing management of volume status. Case has been discussed with Dr. Post. Further recommendations regarding plan of care as per her assessment. I spent a total of 30 minutes on the date of service in preparation, delivery, documentation of the care provided to the patient excluding any time spent in the performance of separately billed services. GÓMEZ Keen [facility] Cardiology [facility] Admission and Anticipated Discharge Date Admission Date: July 28, 2025 Subjective 08/01/2025: Patient seen and examined in follow up today. Feeling Labs, vitals, diagnostics, telemetry and documentation reviewed. Telemetry reviewed showing Physical Exam Constitutional: well developed and well nourished; no acute distress and not ill appearing Neck: normal visual inspection and trachea midline Respiratory: normal respiratory effort, lungs clear to auscultation Cardiovascular: Rate/Rhythm: regular rate and regular rhythm Heart Sounds: + murmur (+1/6 systolic) Vessels: no JVD Extremities: + edema (trace BLE) Skin: no rashes, warm and dry Psychiatric: A+Ox3, euthymic affect Results & Data Vital Signs (Past 12 Hours) Vital Signs Temp Pulse Pulse Resp BP Pulse Ox O2 Del Method 08/01/25 08:15 36.7 C 63 16 111/77 95 Room Air 08/01/25 06:45 Room Air 08/01/25 02:42 36.5 C 65 18 114/69 95 Room Air 07/31/25 23:57 36.5 C 60 18 117/72 95 Room Air 07/31/25 21:55 65 PG Care Time/CCT Total # of Minutes Spent Total Time Spent with Patient: Total time spent is greater than 50% in coordination of care (as documented) at patient's floor/unit and/or counseling patient: Coding Diagnoses Acute on chronic heart failure with reduced ejection fraction (HFrEF, <= 40%) and combined systolic and diastolic dysfunction I50.43 Ischemic cardiomyopathy I25.5 Stage 3b chronic kidney disease (CKD) N18.32 Paroxysmal A-fib I48.0
[2025-08-01] MEDS: TORSEMIDE 20 MG TAB PO SCH (10:25)
--- NOTE | 2025-08-01 11:35 | Discharge Summary ---
Discharge Summary Date of Service August 01, 2025 Principal Dx & Hospital Course #1 = Principal Diagnosis (1) Acute on chronic heart failure with reduced ejection fraction (HFrEF, <= 40%): (2) Ischemic cardiomyopathy: (3) Transient hypotension: (4) History of orthostatic hypotension: (5) Vascular dementia: (6) Bilateral carotid artery stenosis: (7) Coronary artery disease: (8) Stage 3b chronic kidney disease (CKD): Plan Mr Becerra is a 79M with PMH including HFrEF, CKD3, Afib on eliquis, orthostatic hypotension, CVA who was admitted for CHF. Started on IV lasix and his Cr ld so nephrology was consulted. His diuretics were held for two days and he was changed to torsemide today by nephrology. he is feeling well today and wishes to go home. vitals and labs are stable for dc home. he will f/u with cardio and nephrology upon discharge. His home SGLT2 and entresto will be held for the time being until he follows up with nephro and cardio. d/w who agrees with plan #Acute on chronic HFrEF -EF 30% -Compliant with home lasix -BNP elevated. CXR clear -Endorsing HOYT and orthopnea -NO O2 requirements -Reviewed CXR 07/31, clear #CAD -S/p CABG -No chest pain -Continue home plavix/eliquis and cardiac regimen #History of VT -Continue amio toprol #PAF -POA -Rate controlled -Continue eliquis, amio, and toprol #CKD3 -Cr increased to 2.5 from 1.9 on 07/29 -Cr unchanged at 2.5 today -Baseline Cr around 1.9-2.0 -Watch closely while on IV diuretics -Avoid nephrotoxic agents if possible -Nephro following #Orthostatic hypotension -Continue midodrine #History of CVA -Continue home regimen #DM -SSI BGM ACHS #Vascular dementia -AOx3 -High risk for delirium -Avoid nephrotoxic agents if possible #Carotid stenosis -Chronic issue -OP f/u Carlos on 09/22 I spent a total of 36 minutes coordinating, documenting, and providing care for this patient excluding time spent in the performance of separately billed services. This included personally reviewing all current laboratories and imaging studies, medical reconciliation, outpatient chart review and discussion with specialists Notes For Next Care Provider Medication Changes From Visit lasix changed to torsemide SGLT2 and entresto held Admission HPI Per Admitting Provider Patient is a medically complex 79-year-old male with PMHx significant for CAD s/p CABG x 2 with a FOLEY to the LAD and vein graft to the OM with follow-up STEMI and collapse of the vein graft [PCI to the LAD and RCA in March 2019 revealing a patent FOLEY], history of nonsustained ventricular tachycardia, ischemic cardiomyopathy and HFrEF [EF = 30-35% as of 06/24/25] with indwelling biventricular pacer defibrillator since July 2021, bilateral carotid artery stenosis, history of CVA at age 30 of unclear etiology with residual R-sided facial droop and R hand weakness/sensory deficit, PAD with failed PTCA of the arteries of his hip under questionable circumstances at an outside facility, PAF s/p PABLO/DCCV in February 2021, DMII, no flow in bilateral middle cerebral arteries with collateralization suggestive of chronic high-grade stenosis and/or occlusion, intermittent LBBB, labile HTN [with prior recommendations from neurology to keep BP on higher side to improve cerebral blood flow] with history of orthostatic syncope, vascular dementia, CKD stage IIIa, postgastric surgery syndrome and EDGAR who presented to the ED with multiple complaints including 10lb weight gain since Saturday, HOYT, dizziness, generalized weakness and fatigue. History primarily obtained from the patient's , Piper, at bedside with information supported by the patient during direct conversation. Additional history obtained from discussion with the ED provider and associated chart review. Most recent confinement under our service 06/29/25-07/05/25 with acute on chronic HFrEF. Diuresis c/b transient hypotension and orthostatic syncope. Plan on DC from a cardiology standpoint was to continue amiodarone 200mg BID and Toprol-XL 25mg daily to better control PVC burden without jeopardizing blood pressure. Was also instructed to continue Eliquis and Plavix. Jardiance, Imdur and Entresto were placed on hold. Aldactone stopped. Was restarted on Lasix 20mg M// at time of DC. 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 Gann, as he was slowly beginning to gain weight again. Baseline weight ~123.37kg or 272lb. 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 He was instructed at that time to increase his Lasix to 40mg daily. Despite this dose increase and following a low-Na diet, he has continued to gain ~10lb since this past Saturday. Last dose of Lasix was this morning, 40mg. Also with gradual dyspnea on exertion. No supplemental O2 use DOCTOR'S ASSISTANT. Patient admits to feeling more fatigued and overall weak as well over the past week which he has attributed to his progressive HOYT. No recent falls or trauma. Has been feeling dizzy as well with his fluctuating BP. Per his , his SBP range over the last week has been anywhere between 80 and 150 - with more notable drops upon standing which is consistent with his prior history of orthostasis. Patient had been started on midodrine 2.5mg TID by Dr. Gann following his DC last month - yet his BP still remains fluctuant despite medication compliance. Denies any cough, congestion, chest pain or abdominal pain. Feels his abdomen is more distended since Saturday, which typically occurs when he retains fluid. No significant BLE edema noted DOCTOR'S ASSISTANT. Wt 128.7kg today, was previously 121.24kg on 07/05/25. Had OP visit with [facility] nephrology on 07/21/25 with recorded wt of 125.6kg. Discharge Exam Vitals and labs reviewed General: Well appearing, NAD HEENT: EOMI, PERRLA Neck: Supple Cardiac: RRR sytolic murmur Lungs: CTA no rhonchi wheezing or rales Abd: S NT ND BS positive MSK: Full ROM. No obvious deformities Ext: No Edema cyanosis Skin: Warm, Dry Neuro: AOx3 No focal deficits. Psych: Normal Mood Updated Medication List Medication Instructions Recorded Confirmed Type isosorbide mononitrate 30 mg 0 mg PO QAM #0 tabs 08/12/14 07/28/25 History tablet,extended release 24 hr nitroglycerin 0.4 mg sublingual 0.4 mg sublingual Q5M PRN Chest 08/15/17 07/28/25 History tablet Pain ##0 rosuvastatin 40 mg tablet 40 mg PO QAM 03/30/19 07/28/25 History tamsulosin 0.4 mg capsule 0.4 mg PO BID 03/30/19 07/28/25 History clopidogrel 75 mg tablet 75 mg PO QAM 03/15/21 07/28/25 History montelukast 10 mg tablet 10 mg PO QAM 03/15/21 07/28/25 History ezetimibe 10 mg tablet 10 mg PO QAM 07/29/21 07/28/25 History pregabalin 75 mg capsule 75 mg PO QID 05/10/22 07/28/25 History ascorbic acid (vitamin C) 1,000 mg 1 g PO HS 10/18/23 07/28/25 History tablet (Vitamin C) cyanocobalamin (vitamin B-12) 500 mcg PO HS 10/18/23 07/28/25 History 1,000 mcg tablet (Vitamin B-12) finasteride 5 mg tablet (Proscar) 5 mg PO DAILY 10/18/23 07/28/25 History apixaban 5 mg tablet (Eliquis) 5 mg PO BID #60 tabs 06/25/25 07/28/25 Rx empagliflozin 25 mg tablet 0 mg PO QAM 06/29/25 07/28/25 History (Jardiance) spironolactone 25 mg tablet 0 mg PO QAM 06/29/25 07/28/25 History amiodarone 200 mg tablet 200 mg PO BIDM #60 tabs 07/05/25 07/28/25 Rx furosemide 20 mg tablet 40 mg (2 x 20 mg) PO DAILY #180 07/21/25 07/28/25 Rx tabs metoprolol succinate 25 mg 25 mg PO DAILY 07/21/25 07/28/25 History tablet,extended release 24 hr midodrine 2.5 mg tablet 2.5 mg PO TID 07/28/25 07/28/25 History sacubitril 24 mg-valsartan 26 mg 0 tab PO BID 07/28/25 07/28/25 History tablet (Entresto) torsemide 20 mg tablet 40 mg (2 x 20 mg) PO QAM 30 days 08/01/25 Rx #60 tabs Hospital Stay Data Consultations 07/28/25 13:46 ED Decision to Admit Stat 07/28/25 14:41 Consult Cardiology Routine 07/30/25 09:42 Consult Nephrology Routine 07/31/25 11:31 Burn CD for patient Routine Pending Results Patient Have Any Pending Studies at Discharge: No Discharge Instructions Given to Patient (Per Discharging Provider) If weight increases by > 2 lbs or patient develops signs of fluid retention/increasing abdominal ascites, then increase torsemide to 40 mg BID for up to 3 days or until symptoms resolve, then resume torsemide 40 mg daily. Also advised her to hold torsemide for GI illness or signs of dehydration Schedule a follow-up appointment with Dr. Kennedy in 7-14 days. Home Health Attestation I certify that this patient is under my care and that I, or a physicians executive assistant to president working with me, had a face to-face encounter that meets the home health [id number] encounter requirements with this patient. The encounter with the patient was in whole, or in part, for the following medical condition, which is the primary reason for home health care (list medical condition): I certify that, based on my findings, the following services are medically necessary home health services: My clinical findings support the need for the above services because: Further, I certify that my clinical findings support that this patient is homebound (i.e. absences from home require considerable and taxing effort and are for medical reasons or congregational services or infrequently or of short duration when for other reasons) because: Certification for Home Health Services: Based on the above findings, I certify that this patient is confined to the home and needs intermittent nursing home care, physical therapy and/or speech therapy or continues to need occupational therapy. The patient is under my care, and I have initiated the establishment of the plan of care. This patient will be followed by a physician who will periodically review the plan of care. Total Time Total Time Spent Total Time Spent (In Minutes): 36
[2025-08-01 12:20] VITALS: BP 130/80; PULSE 61; RESP 18; TEMP 98.2; O2SAT 97
== END 2025-08-01 12:45 | disposition home or self-care (01) | DRG 291 ==
LOC: ED 11:05 → 2S 14:36 → SUATTDRO 14:36 → 2S 17:30

== ENCOUNTER 2025-09-15 11:10 | Inpatient (IN) ==
--- NOTE | 2025-09-07 09:18 | Anesthesiology Consultation ---
Date of Service September 07, 2025 Assessment & Plan (1) Encounter for pre-operative examination: Plan - check BSG am DOS. - Medtronic ICD: OR made aware rep will be needed DOS. - PCP hospital f/u 08/31/25 [facility]: "...has upcoming MRI...regarding known significant left sided ICA stenosis...BP ok today...plan for carotid revascularization upcoming..." - nephrology office visit 08/30/25 [facility]: "...Acute kidney injury superimposed on CKD...History consistent with CRS and intravascular volume depletion. Urine acellular by history...Recheck labs tomorrow...Advised to restart PRN torsemide at a reduced dose of 20 mg daily as needed for weight >267 lbs today. Monitoring daily weights. Baseline weight ~264-267 lbs..." - discharge summary 08/26/25 [facility]: "...Transient hypotension. History of orthostatic hypotension...Admits to using stool softeners over the weekend for constipation, also needed extra dose of diuretic per HPI. Received gentle IV fluids. Blood pressure stable...MCKENZIE on CKD III-CKD IV. Baseline creatinine ~ 2.0...Nephrology recommends EDW 267 pounds (121 kg)--to hold diuretic for weight less than 266 pounds/hypotension with SBP less than 100 or DBP Needs follow-up with nephrology in 1 to 2 weeks on discharge with repeat blood work. CVA (cerebral vascular accident): Recrudescence of old stroke symptoms likely due to hypotension...CTA head and neck on 06/24/25 showed 90% stenosis of proximal left ICA due to extensive plaque, 40% stenosis of proximal right ICA, mod to severe stenosis of intracranial left vertebral artery and moderate stenosis of intracranial right vertebral artery, no significant flow seen in proximal middle cerebral arteries bilaterally...outpatient MRI brain study at [facility] scheduled for 09/22/25 (could not obtain earlier due to pacer) 09/22/25 has a same-day appt with neurosurgery at [facility] [place] the completion of his MRI to evaluate whether his left ICA stenosis needs intervention... Currently appears fairly euvolemic...CAD s/p CABG x 2 with a FOLEY to the LAD and vein graft to the OM with follow-up STEMI and collapse of the vein graft, PCI to the LAD and RCA in March 2019 revealing a patent FOLEY..." - cardiology inpatient consult/clearance 08/25/25 [facility]: "...preoperative risk assessment with contemplation of TCAR intervention of left carotid...Surgical risk elevated (high) estimated complication rate greater than 30%. Concerns include vascular procedure (TCAR) possibly higher if open procedure. Ischemic cardiomyopathy with reduced ejection fraction. Decompensated congestive heart failure in past 30 days. Acute neurologic event less than 7 days. Acute renal failure. Diabetes mellitus. Functional capacity less than 5 METS...After all vascular studies are reviewed would optimally wish stabilization of renal function and heart failure for some reduction in risk. No further cardiovascular imaging or testing warranted. Would correlate presenting symptoms with progression in disease versus hypotension induced symptoms based on chronic issues..." - Case discussed in detail with Dr. Schroeder who advised patient can proceed from anesthesia standpoint. - Per candy roller on 09/07/25: No known infectious disease contacts, current infectious disease symptoms in past 10 days or COVID positive test result in the past 30 days. Chart Review Chart Review: Acceptable Risk for Surgery and Patient NOT seen in Pre Admission Testing History Surgery Operation Date: 09/15/25 12:10 Proposed Procedures p Left Transcarotid Artery Revascularization - Giancarlo Almazan MD Height/Weight Height: 6 ft 2 in Weight: 121.109 kg Allergies Allergy/AdvReac Type Severity Reaction Status Date / Time No Known Allergies Allergy Verified 09/07/25 07:52 Medications Home Medications Medication Instructions Recorded Confirmed Last Taken nitroglycerin 0.4 mg sublingual 0.4 mg sublingual Q5M PRN Chest 08/15/17 09/07/25 Unknown tablet Pain ##0 rosuvastatin 40 mg tablet 40 mg PO QAM 03/30/19 09/07/25 07/28/25 montelukast 10 mg tablet 10 mg PO QAM 03/15/21 09/07/25 07/28/25 ezetimibe 10 mg tablet 10 mg PO QAM 07/29/21 09/07/25 07/28/25 pregabalin 75 mg capsule 75 mg PO QID 05/10/22 09/07/25 07/28/25 ascorbic acid (vitamin C) 1,000 mg 1 g PO HS 10/18/23 09/07/25 07/28/25 tablet (Vitamin C) cyanocobalamin (vitamin B-12) 500 mcg PO HS 10/18/23 09/07/25 07/28/25 1,000 mcg tablet (Vitamin B-12) finasteride 5 mg tablet (Proscar) 5 mg PO QAM 10/18/23 09/07/25 05/03/24 apixaban 5 mg tablet (Eliquis) 5 mg PO BID #60 tabs 06/25/25 09/07/25 07/28/25 metoprolol succinate 25 mg 25 mg PO QPM 07/21/25 09/07/25 Unknown tablet,extended release 24 hr midodrine 5 mg tablet 5 mg PO TID 08/24/25 09/07/25 08/24/25 torsemide 20 mg tablet 20 mg PO QAM PRN weight gain 30 08/30/25 09/07/25 Unknown days #30 tabs amiodarone 200 mg tablet 200 mg PO BID 09/07/25 09/07/25 Unknown ticagrelor 90 mg tablet 90 mg PO BID 09/07/25 09/07/25 Unknown Past Medical History Medical History (Updated 09/07/25 @ 09:21 by Tamiko Leonard PA-C) Ambulatory dysfunction uses walker for extended distance Atrial fibrillation with rapid ventricular response BPH (benign prostatic hyperplasia) Chronic HFrEF (heart failure with reduced ejection fraction) CKD (chronic kidney disease) stage 3, GFR 30-59 ml/min f/u [facility] Coronary artery disease 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 Diabetes mellitus, type 2 diet controlled 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, 2020, resolved HOYT (dyspnea on exertion) Dyslipidemia Elevated troponin hx Generalized weakness GERD (gastroesophageal reflux disease) hx History of CVA (cerebrovascular accident) 1975 and 06/2025, no residual effects Hx of gout Hx of non-ST elevation myocardial infarction (NSTEMI) (2018) Hx of orthostatic hypotension Hypertension hx, currently has low blood pressure per ICD (implantable cardioverter-defibrillator) in place Ischemic cardiomyopathy hx LBBB (left bundle branch block) NSVT (nonsustained ventricular tachycardia) hx Orthostasis Osteoarthritis of left knee PVD (peripheral vascular disease) Stenosis of left internal carotid artery Vascular dementia Past Family History Family History Mother Stroke Denies family history of Crohn's disease Colorectal cancer Ulcerative colitis Past Surgical History Surgical History (Updated 09/07/25 @ 09:07 by Tamiko Leonard PA-C) History of coronary artery stent placement LAD and RCA 2018, [facility] History of esophagogastroduodenoscopy (EGD) History of Amie fundoplication "years ago" History of total left knee replacement History of total right knee replacement Hx of bilateral cataract extraction Hx of cervical spine surgery "years ago," no ROM limitations Hx of colonoscopy Hx of tonsillectomy Hx of umbilical hernia repair x2 S/P CABG x 2 1999, [facility] [place] f/u serafin manzanares cardio S/P ICD (internal cardiac defibrillator) procedure (2020) [facility]; f/u serafin manzanares cardio Social History Smoking Status: Former smoker tobacco type: cigarettes Smoking cigarettes per day: 1 pack/ day Do You Dip or Chew Tobacco: No Smoking End Date: 1979 Hx Alcohol Use: Yes Alcohol type: beer alcohol intake frequency: holidays/special occasions only Hx Substance Use: No substance use type: does not use Lab Results Anesthesia Preop Results Results Anesthesia Widget: Urine Color Yellow 08/25/25 Urine Appearance Clear (Clear) 08/25/25 Urine pH 6.5 (4.5-7.5) 08/25/25 Urine Specific [place] 1.009 (1.000-1.030) 08/25/25 Urine Protein Trace (Negative) H 08/25/25 Urine Glucose (UA) Negative (Negative) 08/25/25 Urine Ketones Negative (Negative) 08/25/25 Urine Blood Trace (Negative) H 08/25/25 Urine Nitrite Negative (Negative) 08/25/25 Urine Bilirubin Negative (Negative) 08/25/25 Urine Urobilinogen Negative (Negative) 08/25/25 Urine Leukocyte Esterase Negative (Negative) 08/25/25 Urine WBC (Auto) 0-5 /hpf (0-5) 08/25/25 Urine RBC (Auto) 0-2 /hpf (0-2) 08/25/25 Urine Hyaline Casts (Auto) 0-2 /lpf (0-2) 08/25/25 Urine Epithelial Cells (Auto) 0-2 /hpf (0-2) 08/25/25 Urine Bacteria (Auto) None Seen (None Seen) 08/25/25 Testing Laboratory Results 08/31 WBC: 4.1 H/H: 12/ PLATELETS: 117,000 SODIUM: 146 POTASSIUM: 4.9 CHLORIDE: 112 CO2: 21 BUN: 34 CREATININE: 1.7 GLUCOSE: 93 TSH: 6.5 Magnesium: 2.3 GFR now 42 from 23 (baseline creatinine 1.6-2 per [facility]) Electrocardiogram Date: 07/28/25 AV dual paced rhythm, rate 60 bpm Chest X-Ray Date: 08/24/25 *1 view* No acute process, and no change. Echocardiogram Date: 06/24/25 EF 30-35% LV is mildly dilated, wall thickness is mildly increased in non infarct segments Apical wall motion abnormality may reflect pacemaker activation Large inferoposterior wall wall motion abnormality with scar Grade II diastolic dysfunction Mild to moderate mitral regurgitation Doppler findings do not suggest pulmonary hypertension Stress Test Date: 05/08/21 MPHR 62% Akinesis of the inferior lateral myocardium with an estimated LVEF 41% Transmural infarct of the inferior lateral myocardium and no active ischemia Cardiac Catheterization Date: 03/31/19 LM -calcified, moderate diffuse disease LAD -occluded at the ostium Circumflex -small vessel mild diffuse disease, severe diffuse mid segment disease. Occluded OM 2 fills via right to left collaterals. Small OM1 without significant disease. RCA -moderate caliber vessel, mild diffuse mid segment disease, 50% distal right PAV right after takeoff of PDA FOLEY to LADwidely patent, mid to distal LAD after anastomosis without significant disease. Summary: 1. Severe chronic coronary artery disease - Occluded ostial LAD (previously occluded in the mid segment in 2009 with loss of S1, D1 on current cath). - Severe mid circumflex disease. Occluded OM2. - 50% distal RCA/PAV disease 2. Patent FOLEY to LAD. SVG to Circumflex known to be occluded. 3. Low intracardiac filling pressures. 4. Normal cardiac output No evidence of ACS or low cardiac output to explain presyncope, dyspneic/diaphoretic spells. Other Testing Renal US 08/25/25 1. No hydronephrosis. 2. Apparent 2.1 cm solid left upper pole renal lesion. Less likely, this could represent a splenule. Nonemergent renal protocol CT or MRI is recommended. 3. Equivocal nonobstructing right renal calculus. Carotid doppler 08/24/25 Moderate to extensive atherosclerotic plaque within the carotid bifurcations, as described above. Findings suggestive of 50-69% stenosis of the proximal left internal carotid artery. Velocities decreased when compared to prior ultrasound. Head CT 08/24/25 No acute intracranial abnormality. Head and neck CTA 06/23/25 1. Short segment severe (90%) stenosis of the proximal left internal carotid artery due to extensive plaque. 2. 40% stenosis of the proximal right internal carotid artery. 3. Moderate to severe stenosis of the intracranial left vertebral artery and moderate stenosis of the intracranial right vertebral artery. Stable CTA of the brain with no significant flow is seen in the proximal middle cerebral arteries bilaterally. Otherwise as described. ICD report 06/23/25 Medtronic DDR Total MARKET DEVELOPMENT MANAGER 81% 0 pace terminated episodes
--- NOTE | 2025-09-15 10:37 | History & Physical Report ---
Date of Service September 15, 2025 History of Present Illness Primary Care Provider: Chava Bell MD Date of Consultation August 25, 2025 Assessment & Plan (1) Bilateral carotid artery stenosis: Pt with severe short segment stenosis of L ICA, causing increased risk of CVA. Does have hx of CVA in past, but still with good strength of RUE/RLE. Discussed wtih Dr Carballo. Would consider pt for L TCAR pending cardiology clearance. Pt and are agreeable. History of Present Illness Reason for Consultation: L ICA stenosis Attending Physician: Jad Miles MD History of Present Illness 79yo m with hx of CKD, a fib, HFrEF, hypotension, CVA, ischemic cardiomyopathy, vascular dementia, dyslipidemia, gout, GERD, NSTEMI, admitted with hypotension and MCKENZIE, seen in consultation today for carotid stenosis. Pt was at home and his states his BP was 80mmHg. At the time, she also noted his facial droop and slurred speech was worse. Pt has some chronic mild facial droop and mild right sided weakness at baseline for many years d/t previous CVA. Denies amaurosis, new unilateral weakness, TSANG, fever, chest pain, SOB, abd pain, N/V, rest pain, claudication, other complaints. CTA neck from 05/2025 demonstrates severe short segment stenosis of L ICA. Allergies Allergy/AdvReac Type Severity Reaction Status Date / Time No Known Allergies Allergy Verified 08/18/25 13:41 Home Medications Medication Instructions Recorded Confirmed Type nitroglycerin 0.4 mg sublingual 0.4 mg sublingual Q5M PRN Chest 08/15/17 08/24/25 History tablet Pain ##0 rosuvastatin 40 mg tablet 40 mg PO QAM 03/30/19 08/24/25 History tamsulosin 0.4 mg capsule 0.4 mg PO BID 03/30/19 08/24/25 History clopidogrel 75 mg tablet 75 mg PO QAM 03/15/21 08/24/25 History montelukast 10 mg tablet 10 mg PO QAM 03/15/21 08/24/25 History ezetimibe 10 mg tablet 10 mg PO QAM 07/29/21 08/24/25 History pregabalin 75 mg capsule 75 mg PO QID 05/10/22 08/24/25 History ascorbic acid (vitamin C) 1,000 mg 1 g PO HS 10/18/23 08/24/25 History tablet (Vitamin C) cyanocobalamin (vitamin B-12) 500 mcg PO HS 10/18/23 08/24/25 History 1,000 mcg tablet (Vitamin B-12) finasteride 5 mg tablet (Proscar) 5 mg PO DAILY 10/18/23 08/24/25 History apixaban 5 mg tablet (Eliquis) 5 mg PO BID #60 tabs 06/25/25 08/24/25 Rx spironolactone 25 mg tablet 0 mg PO QAM 06/29/25 08/24/25 History amiodarone 200 mg tablet 200 mg PO BIDM #60 tabs 07/05/25 08/24/25 Rx metoprolol succinate 25 mg 25 mg PO DAILY 07/21/25 08/24/25 History tablet,extended release 24 hr sacubitril 24 mg-valsartan 26 mg 0 tab PO BID 07/28/25 08/24/25 History tablet (Entresto) torsemide 20 mg tablet 40 mg (2 x 20 mg) PO QAM 30 days 08/01/25 08/24/25 Rx #60 tabs empagliflozin 25 mg tablet 0 mg PO QAM 08/24/25 08/24/25 History (Jardiance) midodrine 5 mg tablet 5 mg PO TID 08/24/25 08/24/25 History Patient History Medical History BPH (benign prostatic hyperplasia) Orthostasis Acute kidney injury superimposed on CKD Acute hypokalemia Elevated troponin Pneumonia Sepsis 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 CKD (chronic kidney disease), stage III Cardiomyopathy, ischemic CKD (chronic kidney disease) stage 3, GFR 30-59 ml/min Elevated troponin LBBB (left bundle branch block) Atrial fibrillation with rapid ventricular response Stenosis of left internal carotid artery Ischemic cardiomyopathy DVT prophylaxis CVA (cerebral vascular accident) GERD (gastroesophageal reflux disease) Diabetes Hypertension Diabetes mellitus, type 2 Surgical History History of coronary artery stent placement LAD and RCA 2019S/P CABG x 2 Family History Mother StrokeDenies family history of Crohn's disease Colorectal cancer Ulcerative colitis Social History Smoking Status: Former smoker Tobacco Type: Cigarettes Cigarettes Per Day: 1 pack/ day; Second Hand Exposure: No; Do You Dip or Chew Tobacco: No; Hx Alcohol Use: No Hx Substance Use: No Preferred Language: Kittitian Communication Ability: Effective Communication Ability Comment: [phone] C2 Tactical Analysis Technician Required: No Beliefs That Will Affect Care: None marital status: Current Living Situation: Spouse current occupation: Retired Feels Safe at Home: Yes Safety Concerns: Feels Safe At This Time Assistive Devices: Cane, Walker and Wheelchair Review of Systems Review of Systems: All systems reviewed & are unremarkable except as noted in HPI & below Physical Exam Constitutional: WD/WN, vitals as above healthy appearing, cooperative and comfortable; not in distress Neck: trachea midline Respiratory: normal respiratory effort, lungs clear to auscultation Auscultation: + diminished lung sounds Cardiovascular: Rate/Rhythm: + irregularly irregular Pt did not want to get back in bed for pulse exam, will perform pulse exam at later date. Musculoskeletal: RUE/RLE 4/5 LUE/LLE 5/5 Skin: no rashes, warm and dry Neurologic: moves all extremities, + focal motor deficit (mild RUE/RLE weakness) and awake; not confused (minimal confusion) Psychiatric: Orientation: alert and oriented x 3 Results & Data Vital Signs (Past 12 Hours) Vital Signs Temp Pulse Pulse Resp BP Pulse Ox O2 Del Method 08/25/25 11:09 36.5 C 60 20 110/73 96 Room Air 08/25/25 08:04 36.7 C 89 16 119/73 93 Room Air 08/25/25 07:19 60 08/25/25 02:12 36.8 C 73 16 120/80 94 Room Air Signed By: <Electronically signed by Avis Starks PA-C> 08/25/25 1351 <Electronically signed by Giancarlo Carballo MD> 08/31/25 0949 Created: 08/25/25 1320 The status of this report is Signed. Draft = Not yet reviewed or approved by Medical Physician. Signed = Reviewed and approved by Medical Physician. Allergies Allergy/AdvReac Type Severity Reaction Status Date / Time No Known Allergies Allergy Verified 09/07/25 07:52 Home Medications Medication Instructions Recorded Confirmed Type nitroglycerin 0.4 mg sublingual 0.4 mg sublingual Q5M PRN Chest 08/15/17 09/07/25 History tablet Pain ##0 rosuvastatin 40 mg tablet 40 mg PO QAM 03/30/19 09/07/25 History montelukast 10 mg tablet 10 mg PO QAM 03/15/21 09/07/25 History ezetimibe 10 mg tablet 10 mg PO QAM 07/29/21 09/07/25 History pregabalin 75 mg capsule 75 mg PO QID 05/10/22 09/07/25 History ascorbic acid (vitamin C) 1,000 mg 1 g PO HS 10/18/23 09/07/25 History tablet (Vitamin C) cyanocobalamin (vitamin B-12) 500 mcg PO HS 10/18/23 09/07/25 History 1,000 mcg tablet (Vitamin B-12) finasteride 5 mg tablet (Proscar) 5 mg PO QAM 10/18/23 09/07/25 History apixaban 5 mg tablet (Eliquis) 5 mg PO BID #60 tabs 06/25/25 09/07/25 Rx metoprolol succinate 25 mg 25 mg PO QPM 07/21/25 09/07/25 History tablet,extended release 24 hr midodrine 5 mg tablet 5 mg PO TID 08/24/25 09/07/25 History torsemide 20 mg tablet 20 mg PO QAM PRN weight gain 30 08/30/25 09/07/25 Rx days #30 tabs amiodarone 200 mg tablet 200 mg PO BID 09/07/25 09/07/25 History ticagrelor 90 mg tablet 90 mg PO BID 09/07/25 09/07/25 History Past Med/Surg History Problem List (Updated 09/07/25 @ 09:21 by Tamiko Leonard PA-C) Encounter for pre-operative examination Hypotension (Acute) Chronic HFrEF (heart failure with reduced ejection fraction) Vitamin D deficiency Ischemic cardiomyopathy Stage 3b chronic kidney disease (CKD) Bilateral carotid artery stenosis History of orthostatic hypotension CHF (congestive heart failure) (Acute) Shortness of breath (Acute) Advanced care planning/counseling discussion HOYT (dyspnea on exertion) (Acute) Pulmonary edema (Acute) History of CVA (cerebrovascular accident) Vascular dementia Generalized weakness (Acute) Ambulatory dysfunction (Acute) NSVT (nonsustained ventricular tachycardia) (Acute) Chronic bundle branch block LBBB Left knee DJD Paroxysmal A-fib TIA (transient ischemic attack) (Chronic) HTN (hypertension) Peripheral vascular disease (Chronic) GERD (gastroesophageal reflux disease) (Chronic) Gout (Chronic) Dyslipidemia Medical History (Updated 09/07/25 @ 09:21 by Tamiko Leonard PA-C) Coronary artery disease 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 PVD (peripheral vascular disease) NSVT (nonsustained ventricular tachycardia) hx Hx of non-ST elevation myocardial infarction (NSTEMI) (2018) Chronic HFrEF (heart failure with reduced ejection fraction) ICD (implantable cardioverter-defibrillator) in place Ambulatory dysfunction uses walker for extended distance Vascular dementia Hx of orthostatic hypotension History of CVA (cerebrovascular accident) 1975 and 06/2025, no residual effects Hx of gout Generalized weakness HOYT (dyspnea on exertion) Dyslipidemia BPH (benign prostatic hyperplasia) Orthostasis 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, 2020, resolved CKD (chronic kidney disease) stage 3, GFR 30-59 ml/min f/u [facility] Elevated troponin hx LBBB (left bundle branch block) Atrial fibrillation with rapid ventricular response Stenosis of left internal carotid artery Ischemic cardiomyopathy hx GERD (gastroesophageal reflux disease) hx Hypertension hx, currently has low blood pressure per Diabetes mellitus, type 2 diet controlled Surgical History (Updated 09/07/25 @ 09:07 by Tamiko Leonard PA-C) Hx of cervical spine surgery "years ago," no ROM limitations History of esophagogastroduodenoscopy (EGD) Hx of colonoscopy Hx of tonsillectomy Hx of bilateral cataract extraction History of Amie fundoplication "years ago" Hx of umbilical hernia repair x2 History of total right knee replacement History of total left knee replacement S/P ICD (internal cardiac defibrillator) procedure (2020) [facility]; f/u serafin manzanares cardio History of coronary artery stent placement LAD and RCA 2018, [facility] S/P CABG x 2 [place] [facility] [place] f/u serafin manzanares cardio Family History Mother Stroke Denies family history of Crohn's disease Colorectal cancer Ulcerative colitis Social History Smoking Status: Former smoker Tobacco Type: Cigarettes Cigarettes Per Day: 1 pack/ day; Smoking End Date: 1979; Second Hand Exposure: No; Do You Dip or Chew Tobacco: No; Tobacco Cessation Education Requested by Patient: No Hx Alcohol Use: Yes Alcohol type: beer Hx Substance Use: No Preferred Language: [place] Communication Ability: Effective Communication Ability Comment: [phone] C2 Tactical Analysis Technician Required: No Beliefs That Will Affect Care: None marital status: Current Living Situation: Spouse current occupation: Retired Other Information That Helps Us Care for You: No Feels Safe at Home: Yes Safety Concerns: Feels Safe At This Time Assistive Devices: Walker
--- NOTE | 2025-09-15 12:45 | History & Physical Bridge Note ---
Date of Service September 15, 2025 History & Physical Bridge Note I have examined the patient, reviewed the History & Physical and in the interval since the performance of the History & Physical I have noted the following changes of clinical significance: no changes noted
[2025-09-15] MEDS: ASPIRIN 325 MG ECTAB PO STA (12:52)
[2025-09-15] MEDS: ASPIRIN 325 MG ECTAB PO ONE (12:52)
[2025-09-15] MEDS: LACTATED RINGER'S 1,000 ML IV SCH ×2 (12:53→18:36)
[2025-09-15] MEDS ORDERED: ONDANSETRON INJ 2 MG/ML 2 ML VIAL IV PRN ×2 (12:58→17:41)
[2025-09-15] MEDS ORDERED: ATROPINE SULFATE 0.1 MG/ML 10ML SYR IV PRN (12:58)
[2025-09-15] MEDS ORDERED: FLUMAZENIL 0.1 MG/1 ML 10 ML VIAL IV PRN (12:58)
[2025-09-15] MEDS ORDERED: NALOXONE HCL 0.4 MG/1 ML VIAL/CARP IV PRN (12:58)
[2025-09-15] MEDS ORDERED: PROMETHAZINE HCL 6.25 MG in SODIUM CHLORIDE 0.9% 50 ML IV PRN (12:58)
[2025-09-15] MEDS ORDERED: DOBUTamine 1000 MG/250ML D5W IV PRN (12:59)
[2025-09-15] MEDS ORDERED: ROCURONIUM BROMIDE 10 MG/ML 5 ML VIAL IV ONE (13:00)
[2025-09-15] MEDS ORDERED: MIDAZOLAM HCL 1 MG/ML 2ML VIAL ONE (13:00)
[2025-09-15] MEDS ORDERED: PROPOFOL IV EMULSION 10 MG/ML 20 ML VIAL IV ONE (13:00)
[2025-09-15] MEDS ORDERED: SUCCINYLCHOLINE CHLORIDE 20 MG/ML 10 ML VIAL IV ONE (13:00)
[2025-09-15] MEDS ORDERED: LIDOCAINE 2% 2 ML VIAL/AMP(20MG/ML) INFIL ONE (13:00)
[2025-09-15] MEDS ORDERED: DOBUTamine 1000 MG/250ML D5W IV ONE (13:06)
[2025-09-15] MEDS ORDERED: HEPARIN SOD (PORCINE) 1000 UNIT/ML ONE ×2 (13:15→14:08)
[2025-09-15] MEDS ORDERED: PHENYLEPHRINE HCL 25 MG/250 ML NSS IV ONE (14:06)
[2025-09-15] MEDS ORDERED: VASOPRESSIN 20 UNIT/ML VIAL ONE (14:07)
[2025-09-15] MEDS ORDERED: NOREPINEPHRINE BITARTRATE 1 MG/ML 4 ML VIAL IV ONE (14:18)
[2025-09-15] MEDS ORDERED: SUGAMMADEX SODIUM 200 MG/2 ML VIAL IV ONE (14:32)
[2025-09-15] MEDS ORDERED: PROTAMINE SULFATE 10 MG/ML 5 ML VIAL IV ONE (14:35)
[2025-09-15] MEDS: THROMBIN FOR SOLN 20000 UNIT KIT ONE (14:38)
[2025-09-15] MEDS: GELATIN SPONGE SZ 100 ONE (14:38)
--- NOTE | 2025-09-15 14:48 | Procedure Note ---
Angiogram Post Procedure Fluoroscopy Time (minutes): 3.9 Radiation (mGy): 113 Contrast: 15 Post Operative Report Pre & Post Diagnosis Operation Date: 09/15/25 12:40 Pre-Op Diagnosis: Left Internal Carotid Artery Stenosis Post-Op Diagnosis: Left Internal Carotid Artery Stenosis I identified the patient and participated in the time-out.: Yes Procedure Operation Date: 09/15/25 12:40 Actual Procedures p Left Transcarotid Artery Revascularization(Left), Ultrasound localization of right common femoral vein - Giancarlo Almazan MD Surgeon Giancarlo Almazan MD [employer] [place],PAC Estimated Blood Loss 10 Findings Consistent with Post-Op Diagnosis Specimens none Anesthesia Type General Complications none Disposition Accompanied Patient To Recovery: No Disposition: Recovery Room Indications This is a 72-year-old gentleman was found to have a severe stenosis of his left internal carotid artery. Endarterectomy versus TCAR was recommended. He elected to have a TCAR approach. I have discussed the risks options and benefits of the procedure with the patient. The patient understands the risks options and benefits and agrees to the procedure. Description of Procedure The patient was taken to the operating room and placed in supine position. After general anesthesia was accomplished the groins and left side of the neck and chest were prepped and draped in a sterile manner. Timeout was performed and the patient was identified. A transverse incision was made just above the clavicle between the heads of the sternocleidomastoid. This is carried down to where the common carotid artery was identified. It was isolated. It was slung with umbilical tape. Next the U stitch was placed in the common carotid artery with a 5-0 Prolene suture. Patient was given 60764 heparin at that time. Ultrasound was then used to localize the right common femoral vein. The vein was patent and compressed easily. Under ultrasound guidance the right common femoral vein was punctured and the venous sheath was inserted. This was aspirated and flushed with heparinized saline. ACT at that time was 302. Using micropuncture technique the common carotid artery was punctured. The micro sheath was inserted to 3 cm. Injection was then done showing the bifurcation. There was a significant lesion seen at the origin of the internal carotid artery on the left side. We then inserted the J-wire left and short of the lesion. The micro sheath was removed and the TCAR sheath was inserted. Once it was in place and held against the artery it was sutured to the chest wall and the incision edge. We then flushed the tubing appropriately. The venous return to was clamped onto the TCAR sheath. It was flushed through and then attached to the venous inflow sheath in the left groin. Sheath was checked for flow. The saline cleared nicely. The common carotid artery was then clamped. Flow reversal was instituted.The flow reversal was again checked for flow and found to have good flow after clamping. We inserted a 5 x 25 balloon backloaded on the wire. The wire was passed through the lesion into the petrous portion of the internal carotid. The 5 balloon was then advanced to the lesion. Lesion was then predilated with a 5 mm balloon. Balloon was removed. We then inserted the 9/7 x 30 stent. This was deployed across the lesion without difficulty. The catheter was removed. The carotid was allowed to go 2 minutes with flow reversal. Completion angiogram was done at that time which showed a widely patent carotid stent. At that point the common carotid artery was unclamped. The venous return tubing was clamped and removed from the TCAR sheath. The blood was allowed to flow back into the venous system. The TCAR sheath was then removed and the 5-0 Prolene suture securely tied. The patient was given 25 mg of protamine. Hemostasis was noted of the puncture site. An ACT was then drawn. The ACT was 135. The sheath was pulled from the groin and pressure was applied. Wound was irrigated with saline solution. Adequate hemostasis was obtained of the wound. Once this was noted the wound was closed in usual fashion using a 3-0 Vicryl suture for the subcutaneous layer and a 4-0 subcuticular Vicryl suture for the skin edges. Dermabond was used for dressing. The patient left the operation room in satisfactory condition and tolerated the procedure well. All needle and sponge counts were correct at the end of the procedure. Avis Starks Pac assisted due to lack of resident availability and was necessary for positioning, draping, retraction, wound closure deep layers, subcutaneous tissue, and skin closure and was necessary for assisting with the case. I attest to the content of the Intraoperative Record and any orders documented therein. Any exceptions are noted below.
[2025-09-15] MEDS: VISIPAQUE IV ONE (14:50)
[2025-09-15] MEDS: BUPIVACAINE/EPINEPHRINE 0.5% MPF 1:200,000 30 ML VIAL ONE (14:50)
[2025-09-15] MEDS: ceFAZolin 330 MG/ML 1 GM VIAL ONE (14:50)
[2025-09-15] MEDS: SURGICEL ABSORB HEMOSTAT 2IN X 14IN TOP ONE (14:55)
[2025-09-15] MEDS ORDERED: ESMOLOL HCL INJ 10 MG/ML 10ML VIAL IV ONE (15:08)
[2025-09-15] MEDS ORDERED: NITROGLYCERIN/D5W 100 MCG/ML BTL ONE (15:24)
--- NOTE | 2025-09-15 16:45 | Anesthesiology Progress Note ---
Date of Service September 15, 2025 Anesthesia Post Procedure Vital Signs Vital Signs: Temp Pulse Pulse Resp BP BP BP 09/15/25 16:20 76 12 105/74 105/57 L 09/15/25 16:10 76 10 L 95/62 L 115/56 L 09/15/25 16:00 76 7 L 109/71 113/57 L 09/15/25 15:50 75 8 L 122/80 101/54 L 09/15/25 15:40 75 14 145/89 H 133/66 09/15/25 15:30 75 16 153/94 H 142/69 H 09/15/25 15:22 36 C L 75 12 153/87 H 09/15/25 11:46 36.6 C 62 18 110/65 123/72 Pulse Ox O2 Del Method O2 Flow Rate 09/15/25 16:20 96 Room Air 09/15/25 16:10 96 Room Air 09/15/25 16:00 95 Room Air 09/15/25 15:50 97 Room Air 09/15/25 15:40 100 Oxymask 6 09/15/25 15:30 98 Oxymask 6 09/15/25 15:22 99 Oxymask 6 09/15/25 11:46 97 Room Air Pain Intensity Left Neck: Pain Intensity: 3 Transfer of Care Handoff Completed per policy Notes Mental Status: alert / awake / arousable Patient Amnestic to Procedure: Yes Nausea / Vomiting: adequately controlled Pain: adequately controlled Airway Patency, RR, SpO2: stable & adequate BP & HR: stable & adequate Hydration State: stable & adequate Anesthetic Complications: no major complications apparent and Pt Satisfied with anesthetic care Notes: pacemaker rep came to bedside in PACU and returned pacemaker to original mode. Noted frequent PVCs after pacer reset. EKG obtained. Patient AAOx3, blood pressure stable. Will maintain a line and admit to ICU for further post op care.
[2025-09-15] MEDS ORDERED: NITROGLYCERIN SL 0.4 MG/TAB TAB SL PRN (17:41)
[2025-09-15] MEDS ORDERED: TORSEMIDE 20 MG TAB PO PRN (17:41)
[2025-09-15] MEDS ORDERED: STAT IV Infusion **Titration per Protocol STA (17:41)
[2025-09-15] MEDS ORDERED: PHENYLEPHRINE/NSS 25 MG/250 ML BAG IV PRN (17:41)
[2025-09-15] MEDS: DOBUTamine / D5W 1,000 MG/250 ML BAG (Premixed) IV SCH (18:31)
[2025-09-15] MEDS: PREGABALIN 75 MG CAP PO SCH (18:35)
[2025-09-15] MEDS: MIDODRINE HCL 2.5 MG TAB PO SCH (20:08)
[2025-09-15] MEDS: CYANOCOBALAMIN (B-12) 500 MCG TABLET PO SCH (20:09)
[2025-09-15] MEDS: AMIODARONE 200 MG TAB PO SCH (20:09)
[2025-09-15] MEDS: ASCORBIC ACID 500 MG TAB PO SCH (20:09)
[2025-09-15] MEDS: TICAGRELOR 90 MG TAB PO SCH (20:14)
[2025-09-15] MEDS: HYDROCODONE/ACETAMOPHEN 5/325MG TAB PO PRN (20:26)
[2025-09-15] MEDS: METOPROLOL SUCC 25MG EXT REL TAB PO SCH (20:26)
[2025-09-15] MEDS: ASPIRIN CHEW 324 MG PO STA (23:09)
[2025-09-16 08:20] VITALS: TEMP 98.1
[2025-09-16 08:24] VITALS: BP 109/66
[2025-09-16] MEDS: ROSUVASTATIN CALCIUM 20 MG TAB PO SCH (08:31)
[2025-09-16] MEDS: FINASTERIDE 5 MG TAB PO SCH (08:31)
[2025-09-16] MEDS: EZETIMIBE 10 MG TAB PO SCH (08:32)
[2025-09-16] MEDS: MONTELUKAST SODIUM 10 MG TABLET PO SCH (08:32)
[2025-09-16] MEDS: APIXABAN 5 MG TABLET PO SCH (08:32)
--- NOTE | 2025-09-16 09:32 | Critical Care Progress Note ---
Date of Service September 16, 2025 Assessment & Plan Admission and Anticipated Discharge Date Admission Date: September 15, 2025 Subjective No overnight events Physical Exam Physical Exam: General: Alert. nontoxic. Skin: Warm, dry, Head: Atraumatic Ears, nose, mouth and throat: airway patent Cardiovascular: Normal peripheral perfusion Respiratory: no respiratory distress Gastrointestinal: Non distended Musculoskeletal: No deformity Results & Data Results & Data Vital Signs (Past 12 Hours) Vital Signs Temp Pulse Pulse Pulse Resp BP BP 09/16/25 08:23 36.7 C 66 62 16 110/65 09/16/25 08:15 78 16 09/16/25 08:00 36.7 C 09/16/25 08:00 60 09/16/25 07:09 60 13 09/16/25 06:06 65 16 09/16/25 06:01 118/71 09/16/25 06:01 118/71 09/16/25 06:01 118/71 09/16/25 05:45 60 16 09/16/25 05:15 65 20 09/16/25 05:00 139/81 09/16/25 05:00 139/81 09/16/25 04:57 79 17 09/16/25 04:09 60 15 09/16/25 04:00 37.2 C 115/68 09/16/25 03:57 63 15 09/16/25 03:01 108/63 09/16/25 03:00 65 11 L 09/16/25 02:09 60 5 L 09/16/25 01:09 37.1 C 60 8 L 09/16/25 01:00 67 17 09/16/25 01:00 109/89 09/16/25 00:00 60 16 09/16/25 00:00 115/66 09/16/25 00:00 62 09/15/25 23:21 111/64 09/15/25 23:00 113/62 09/15/25 22:51 61 14 09/15/25 22:18 60 20 09/15/25 22:00 140/69 09/15/25 21:48 60 20 BP BP Pulse Ox 09/16/25 08:23 109/66 124/60 94 09/16/25 08:15 94 09/16/25 08:00 09/16/25 08:00 09/16/25 07:09 95 09/16/25 06:06 97 09/16/25 06:01 09/16/25 06:01 09/16/25 06:01 09/16/25 05:45 97 09/16/25 05:15 97 09/16/25 05:00 09/16/25 05:00 09/16/25 04:57 95 09/16/25 04:09 96 09/16/25 04:00 09/16/25 03:57 97 09/16/25 03:01 09/16/25 03:00 94 09/16/25 02:09 91 09/16/25 01:09 98 09/16/25 01:00 95 09/16/25 01:00 09/16/25 00:00 98 09/16/25 00:00 09/16/25 00:00 09/15/25 23:21 09/15/25 23:00 09/15/25 22:51 96 09/15/25 22:18 98 09/15/25 22:00 09/15/25 21:48 95 Critical Care Results & Data Vital Signs (Past 12 Hours) Vital Signs Temp Pulse Pulse Pulse Resp BP BP 09/16/25 08:23 36.7 C 66 62 16 110/65 09/16/25 08:15 78 16 09/16/25 08:00 36.7 C 09/16/25 08:00 60 09/16/25 07:09 60 13 09/16/25 06:06 65 16 09/16/25 06:01 118/71 09/16/25 06:01 118/71 09/16/25 06:01 118/71 09/16/25 05:45 60 16 09/16/25 05:15 65 20 09/16/25 05:00 139/81 09/16/25 05:00 139/81 09/16/25 04:57 79 17 09/16/25 04:09 60 15 09/16/25 04:00 37.2 C 115/68 09/16/25 03:57 63 15 09/16/25 03:01 108/63 09/16/25 03:00 65 11 L 09/16/25 02:09 60 5 L 09/16/25 01:09 37.1 C 60 8 L 09/16/25 01:00 67 17 09/16/25 01:00 109/89 09/16/25 00:00 60 16 09/16/25 00:00 115/66 09/16/25 00:00 62 09/15/25 23:21 111/64 09/15/25 23:00 113/62 09/15/25 22:51 61 14 09/15/25 22:18 60 20 09/15/25 22:00 140/69 09/15/25 21:48 60 20 BP BP Pulse Ox 09/16/25 08:23 109/66 124/60 94 09/16/25 08:15 94 09/16/25 08:00 09/16/25 08:00 09/16/25 07:09 95 09/16/25 06:06 97 09/16/25 06:01 09/16/25 06:01 09/16/25 06:01 09/16/25 05:45 97 09/16/25 05:15 97 09/16/25 05:00 09/16/25 05:00 09/16/25 04:57 95 09/16/25 04:09 96 09/16/25 04:00 09/16/25 03:57 97 09/16/25 03:01 09/16/25 03:00 94 09/16/25 02:09 91 09/16/25 01:09 98 09/16/25 01:00 95 09/16/25 01:00 09/16/25 00:00 98 09/16/25 00:00 09/16/25 00:00 09/15/25 23:21 09/15/25 23:00 09/15/25 22:51 96 09/15/25 22:18 98 09/15/25 22:00 09/15/25 21:48 95 Lab & Micro Results (Past 24 Hours) No Data to Display No Data to Display No Data to Display I & O Totals 24 Hours 09/15/25 09/16/25 09/17/25 06:59 06:59 06:59 Intake Total 1999.000 / 1999. Output Total 1535 / 1535 Balance 465.000 / 465.000 Cumulative 09/02/25 11:17 thru 09/16/25 08:23 Intake Total 1999.000 Output Total 1535 Balance 465.000 RT Ventilator Mngmt (Last Documented) Ventilator Ordered Settings Respiratory Rate 16 09/16/25 08:23 Ventilator - PT Measurements Respiratory Rate 16 Coding Level of Care Code 09278 SUB INP/OBS CARE 12/19MIN
--- NOTE | 2025-09-16 13:00 | Surgery Progress Note ---
Date of Service September 16, 2025 Assessment & Plan (1) S/P vascular surgery: Plan: POD 1 from an uneventful tcar procedure. He is doing well D\C today. Admission and Anticipated Discharge Date Admission Date: September 15, 2025 Subjective No complaints. Denies any focal deficits. Denies any problems with eating Physical Exam Constitutional: WD/WN, vitals as above Neck: trachea midline Respiratory: normal respiratory effort; no respiratory distress Cardiovascular: Rate/Rhythm: regular rate and regular rhythm Musculoskeletal: Hip: + surgical incision (dry and clean with small hematoma and ecchymosis) Neurologic: CN's II-XI intact bilaterally and moves all extremities Psychiatric: A+Ox3, euthymic affect Results & Data Vital Signs (Past 12 Hours) Vital Signs Temp Pulse Pulse Pulse Resp BP BP 09/16/25 08:23 36.7 C 66 62 16 110/65 09/16/25 08:15 78 16 09/16/25 08:00 36.7 C 09/16/25 08:00 60 09/16/25 07:09 60 13 09/16/25 06:06 65 16 09/16/25 06:01 118/71 09/16/25 06:01 118/71 09/16/25 06:01 118/71 09/16/25 05:45 60 16 09/16/25 05:15 65 20 09/16/25 05:00 139/81 09/16/25 05:00 139/81 09/16/25 04:57 79 17 09/16/25 04:09 60 15 09/16/25 04:00 37.2 C 115/68 09/16/25 03:57 63 15 09/16/25 03:01 108/63 09/16/25 03:00 65 11 L 09/16/25 02:09 60 5 L 09/16/25 01:09 37.1 C 60 8 L 09/16/25 01:00 67 17 09/16/25 01:00 109/89 BP BP Pulse Ox 09/16/25 08:23 109/66 124/60 94 09/16/25 08:15 94 09/16/25 08:00 09/16/25 08:00 09/16/25 07:09 95 09/16/25 06:06 97 09/16/25 06:01 09/16/25 06:01 09/16/25 06:01 09/16/25 05:45 97 09/16/25 05:15 97 09/16/25 05:00 09/16/25 05:00 09/16/25 04:57 95 09/16/25 04:09 96 09/16/25 04:00 09/16/25 03:57 97 09/16/25 03:01 09/16/25 03:00 94 09/16/25 02:09 91 09/16/25 01:09 98 09/16/25 01:00 95 09/16/25 01:00
[2025-09-16 13:55] VITALS: PULSE 63; RESP 18; O2SAT 98
--- NOTE | 2025-09-16 21:01 | Electrocardiogram Report ---
Test Reason : Blood Pressure : */* mmHG Vent. Rate : 69 BPM Atrial Rate : 69 BPM P-R Int : 176 ms QRS Dur : 152 ms QT Int : 434 ms P-R-T Axes : * -40 159 degrees QTcB Int : 465 ms AV dual-paced rhythm with frequent Premature ventricular complexes in a pattern of bigeminy Abnormal ECG When compared with ECG of 28-Jul-2025 11:27, Vent. rate has increased by 9 bpm Premature ventricular complexes are now Present Confirmed by Fred Louise ([id number] on 09/16/2025 9:00:37 PM Referred By: Giancarlo Almazan Confirmed By: Fred Louise
--- NOTE | 2025-09-17 12:23 | Discharge Summary ---
Date of Service September 17, 2025 Admission HPI Per Admitting Provider Date of Consultation August 25, 2025 Assessment & Plan (1) Bilateral carotid artery stenosis: Pt with severe short segment stenosis of L ICA, causing increased risk of CVA. Does have hx of CVA in past, but still with good strength of RUE/RLE. Discussed wtih Dr Carballo. Would consider pt for L TCAR pending cardiology clearance. Pt and are agreeable. History of Present Illness Reason for Consultation: L ICA stenosis Attending Physician: aJd Miles MD History of Present Illness 79yo m with hx of CKD, a fib, HFrEF, hypotension, CVA, ischemic cardiomyopathy, vascular dementia, dyslipidemia, gout, GERD, NSTEMI, admitted with hypotension and MCKENZIE, seen in consultation today for carotid stenosis. Pt was at home and his states his BP was 80mmHg. At the time, she also noted his facial droop and slurred speech was worse. Pt has some chronic mild facial droop and mild right sided weakness at baseline for many years d/t previous CVA. Denies amaurosis, new unilateral weakness, TSANG, fever, chest pain, SOB, abd pain, N/V, rest pain, claudication, other complaints. CTA neck from 05/2025 demonstrates severe short segment stenosis of L ICA. Allergies Allergy/AdvReac Type Severity Reaction Status Date / Time No Known Allergies Allergy Verified 08/18/25 13:41 Home Medications Medication Instructions Recorded Confirmed Type nitroglycerin 0.4 mg sublingual 0.4 mg sublingual Q5M PRN Chest 08/15/17 08/24/25 History tablet Pain ##0 rosuvastatin 40 mg tablet 40 mg PO QAM 03/30/19 08/24/25 History tamsulosin 0.4 mg capsule 0.4 mg PO BID 03/30/19 08/24/25 History clopidogrel 75 mg tablet 75 mg PO QAM 03/15/21 08/24/25 History montelukast 10 mg tablet 10 mg PO QAM 03/15/21 08/24/25 History ezetimibe 10 mg tablet 10 mg PO QAM 07/29/21 08/24/25 History pregabalin 75 mg capsule 75 mg PO QID 05/10/22 08/24/25 History ascorbic acid (vitamin C) 1,000 mg 1 g PO HS 10/18/23 08/24/25 History tablet (Vitamin C) cyanocobalamin (vitamin B-12) 500 mcg PO HS 10/18/23 08/24/25 History 1,000 mcg tablet (Vitamin B-12) finasteride 5 mg tablet (Proscar) 5 mg PO DAILY 10/18/23 08/24/25 History apixaban 5 mg tablet (Eliquis) 5 mg PO BID #60 tabs 06/25/25 08/24/25 Rx spironolactone 25 mg tablet 0 mg PO QAM 06/29/25 08/24/25 History amiodarone 200 mg tablet 200 mg PO BIDM #60 tabs 07/05/25 08/24/25 Rx metoprolol succinate 25 mg 25 mg PO DAILY 07/21/25 08/24/25 History tablet,extended release 24 hr sacubitril 24 mg-valsartan 26 mg 0 tab PO BID 07/28/25 08/24/25 History tablet (Entresto) torsemide 20 mg tablet 40 mg (2 x 20 mg) PO QAM 30 days 08/01/25 08/24/25 Rx #60 tabs empagliflozin 25 mg tablet 0 mg PO QAM 08/24/25 08/24/25 History (Jardiance) midodrine 5 mg tablet 5 mg PO TID 08/24/25 08/24/25 History Patient History Medical History BPH (benign prostatic hyperplasia) Orthostasis Acute kidney injury superimposed on CKD Acute hypokalemia Elevated troponin Pneumonia Sepsis 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 CKD (chronic kidney disease), stage III Cardiomyopathy, ischemic CKD (chronic kidney disease) stage 3, GFR 30-59 ml/min Elevated troponin LBBB (left bundle branch block) Atrial fibrillation with rapid ventricular response Stenosis of left internal carotid artery Ischemic cardiomyopathy DVT prophylaxis CVA (cerebral vascular accident) GERD (gastroesophageal reflux disease) Diabetes Hypertension Diabetes mellitus, type 2 Surgical History History of coronary artery stent placement LAD and RCA 2019S/P CABG x 2 Family History Mother StrokeDenies family history of Crohn's disease Colorectal cancer Ulcerative colitis Social History Smoking Status: Former smoker Tobacco Type: Cigarettes Cigarettes Per Day: 1 pack/ day; Second Hand Exposure: No; Do You Dip or Chew Tobacco: No; Hx Alcohol Use: No Hx Substance Use: No Preferred Language: Serbian Communication Ability: Effective Communication Ability Comment: [phone] Boom Conveyor Operator Required: No Beliefs That Will Affect Care: None marital status: Current Living Situation: Spouse current occupation: Retired Feels Safe at Home: Yes Safety Concerns: Feels Safe At This Time Assistive Devices: Cane, Walker and Wheelchair Review of Systems Review of Systems: All systems reviewed & are unremarkable except as noted in HPI & below Physical Exam Constitutional: WD/WN, vitals as above healthy appearing, cooperative and comfortable; not in distress Neck: trachea midline Respiratory: normal respiratory effort, lungs clear to auscultation Auscultation: + diminished lung sounds Cardiovascular: Rate/Rhythm: + irregularly irregular Pt did not want to get back in bed for pulse exam, will perform pulse exam at later date. Musculoskeletal: RUE/RLE 4/5 LUE/LLE 5/5 Skin: no rashes, warm and dry Neurologic: moves all extremities, + focal motor deficit (mild RUE/RLE weakness) and awake; not confused (minimal confusion) Psychiatric: Orientation: alert and oriented x 3 Results & Data Vital Signs (Past 12 Hours) Vital Signs Temp Pulse Pulse Resp BP Pulse Ox O2 Del Method 08/25/25 11:09 36.5 C 60 20 110/73 96 Room Air 08/25/25 08:04 36.7 C 89 16 119/73 93 Room Air 08/25/25 07:19 60 08/25/25 02:12 36.8 C 73 16 120/80 94 Room Air Signed By: <Electronically signed by Avis Starks PA-C> 08/25/25 1351 <Electronically signed by Giancarlo Carballo MD> 08/31/25 0938 Created: 08/25/25 1320 The status of this report is Signed. Draft = Not yet reviewed or approved by Medical Physician. Signed = Reviewed and approved by Medical Physician. Admission Exam Per Admitting Provider Constitutional: WD/WN, vitals as above healthy appearing, cooperative and comfortable; not in distress Neck: trachea midline Respiratory: normal respiratory effort, lungs clear to auscultation Auscultation: + diminished lung sounds Cardiovascular: Rate/Rhythm: + irregularly irregular Pt did not want to get back in bed for pulse exam, will perform pulse exam at later date. Musculoskeletal: RUE/RLE 4/5 LUE/LLE 5/5 Skin: no rashes, warm and dry Neurologic: moves all extremities, + focal motor deficit (mild RUE/RLE weakness) and awake; not confused (minimal confusion) Psychiatric: Orientation: alert and oriented x 3 Principal Diagnosis 1. s/p L TCAR 2. L ICAS Discharge Exam Constitutional WD/WN, vitals as above Neck trachea midline Respiratory normal respiratory effort; no respiratory distress Cardiovascular Rate/Rhythm: regular rate and regular rhythm Musculoskeletal Hip: + surgical incision (dry and clean with small hematoma and ecchymosis) Neurologic CN's II-XI intact bilaterally and moves all extremities Psychiatric A+Ox3, euthymic affect Discharge Data Allergies Allergy/AdvReac Type Severity Reaction Status Date / Time No Known Allergies Allergy Verified 09/15/25 11:34 Consultations 09/15/25 17:41 Consult Shipping And Receiving Material Handler Routine Procedures Performed Operation Date: 09/15/25 12:40 Actual Procedures p Left Transcarotid Artery Revascularization(Left) - Giancarlo Carballo MD Ordered Studies 09/15/25 07:18 EV angio carotid cerv LT Routine US EV guide vascular access Routine Hospital Course (1) S/P vascular surgery: POD 1 from an uneventful tcar procedure. He is doing well D\C today. Total Time Total Time Spent Total Time Spent (In Minutes): 0 Discharge Plan Discharge Items Patient Disposition: Home - Self-Care Reason For Visit: Left Internal Carotid Artery Stenosis Discharge Diagnosis: Left internal carotid artery stenosis Activity: Per Instructions section Non-emergency contact: Surgeon Call non-emergency contact if: your temperature is above 101.5, your wound has increased redness, your wound has increased drainage and your wound pain has increased Follow-up/Referrals: Chava Bell MD [Primary Care Provider] - Diet: Heart Healthy Addtl Attending Provider Instructions: SPECIAL CARE INSTRUCTIONS: Diet: * You may return to previous diet. Medications: * Continue to take Aspirin, brilinta, and statin as directed. Incision Care: * You may shower, but do not rub incision. You may let the warm soapy water run over it. Be sure to dry the incision well after bathing. * Do not shave directly over the incision until it is healed. * DO NOT IMMERSE THE INCISION IN A TUB/POOL/etc. UNTIL HEALED. Restrictions: * Do not drive for at least one week or if you are still taking any narcotic pain medication. * Do not lift anything heavier than a gallon of milk for one week after going home. Possible Complications: * Numbness - It is normal to have some numbness around the incision. Numbness can extend beyond the incision to areas of the neck, ear and face. The numbness is due to bruising of nerves during the surgery and will gradually improve over a period of months. * Hoarseness/Difficulty Speaking and Swallowing - The bruising of nerves in the neck can also cause a hoarse voice, difficulty speaking or swallowing. This may improve over time, HOWEVER, if it continues for more than a few days please contact our office ([phone]). * Excessive Swelling - There will be some swelling immediately after surgery which usually resolves within one week. If you notice that the swelling is getting worse, notify your surgeon ([phone]). * Drainage/Bleeding - If there is any drainage or bleeding, it should be a very small amount (less than a teaspoon per day). If you have excessive bleeding or drainage from the incision, call your surgeon ([phone]) right away. ACTIVATION OF EMERGENCY MEDICAL SYSTEM: Call 911, immediately, if you experience any of the following: Warning Signs and Symptoms of Stroke: * Sudden numbness or weakness of the face, arm or leg, especially on one side of the body * Sudden confusion, trouble speaking or understanding * Sudden trouble seeing in one or both eyes * Sudden trouble walking, dizziness, loss of balance or coordination * Sudden severe headache with no cause Do not delay calling 911 if you experience any warning signs or symptoms of a stroke. Delay in seeking medical attention may affect what treatments can be given to you. Risk Factors for Stroke: You can reduce your chances of stroke by working with your medical provider to adopt a healthy lifestyle. Some specific ways to lower your chance of stroke are: * If you are a smoker, now is the time to stop smoking cigarettes * If you are diabetic, improve the control of your blood sugars * Avoid excessive amounts of alcohol * Control high blood pressure * Lose weight if you are overweight * Be sure to lead an active lifestyle * Eat a healthy diet low in salt, cholesterol and fat You should know about other risk factors for stroke that you are unable to control. These include: * Age 55 years or older * Male gender * Certain racial groups: , or / * Family History of Stroke, Mini stroke or Heart Attack * Sickle Cell Disease You will be receiving a call from the Vascular Surgery Nurse after you are discharged. FOLLOW UP VISIT: It is important for you to keep your follow up appointments with your medical provider. Keep any scheduled doctor appointments. Call [phone] to schedule a follow up appointment if one not already scheduled. Pending Studies at Discharge: No Stand-Alone Forms: [employer], Smoking Cessation Medications and DC Order Prescriptions: New hydrocodone-acetaminophen 5-325 mg Tablet 1 - 2 tab PO Q4H PRN (Reason: pain) Qty: 30 0RF aspirin 81 mg tablet,chewable 81 mg PO DAILY Qty: 30 1RF Continued nitroglycerin 0.4 mg Tablet, Sublingual 0.4 mg sublingual Q5M PRN (Reason: Chest Pain) Qty: 0 metoprolol succinate 25 mg tablet extended release 24 hr 25 mg PO QPM torsemide 20 mg tablet 20 mg PO QAM PRN (Reason: weight gain) 30 Days Qty: 30 0RF Hold Instructions: Hold taking until further recommendations from your physician Patient Comments: 09/07/25-currently taking once daily QAM, fluctuates often due to kidney function. Rx Instructions: PRN weight >267 lbs; hold for SBP <100 mmHg rosuvastatin [Crestor] 40 mg Tablet 40 mg PO QAM montelukast 10 mg tablet 10 mg PO QAM ezetimibe [Zetia] 10 mg tablet 10 mg PO QAM ascorbic acid (vitamin C) [Vitamin C] 1,000 mg Tablet 1 g PO HS cyanocobalamin (vitamin B-12) [Vitamin B-12] 1,000 mcg Tablet 500 mcg PO HS finasteride [Proscar] 5 mg Tablet 5 mg PO QAM pregabalin [Lyrica] 75 mg capsule 75 mg PO QID Eliquis 5 mg Tablet 5 mg PO BID Qty: 60 0RF midodrine 5 mg tablet 5 mg PO TID ticagrelor 90 mg Tablet 90 mg PO BID amiodarone 200 mg tablet 200 mg PO BID Discharge Orders: Discharge Order (Routine); Ordered 09/16/25 Ordered By: Giancarlo Carballo Admission Data Admit Date/Time: 09/15/25 12:43 Attending Provider: Giancarlo Carballo Admit Provider: Giancarlo Carballo Primary Care Provider: Chava Bell Other Providers: Bryant Gross Other Interventions: Discharge Summary Assessment (RN) Last Done: 09/16/25 08:23
== END 2025-09-16 13:51 | disposition home or self-care (01) | DRG 35 ==
LOC: ASU 11:10 → 1E 12:43
PROC: EV.TCAR (2025-09-15 12:40)

== ENCOUNTER 2025-11-04 13:42 | Inpatient (IN) ==
[2025-11-04 14:24] LABS: Hematocrit (blood only) 36.4 % (42.0-52.0); Hemoglobin 12.2 g/dL (14.0-18.0); Immature Granulocytes # (auto) 0.01 K/uL (0.01-0.20); Immature Granulocytes % (auto) 0.2 %; Mean Corpuscular Hemoglobin 32.2 pg (25.0-34.0); Mean Corpuscular Volume 96.0 fL (80.0-100.0); Platelet Count 153 K/uL (130-400); RDW Standard Deviation 50.6 fL (36.4-46.3); Red Blood Count 3.79 M/uL (4.70-6.10); White Blood Count 4.78 K/ul (4.8-10.8)
--- NOTE | 2025-11-04 14:30 | Emergency Department Note ---
Impression & Plan Stroke-like symptoms, Ambulatory dysfunction, CHF exacerbation, MCKENZIE (acute kidney injury), Vertigo ED Provider Note NAME: KEYANA CHAVIS AGE: 80 SEX: M : 1945 ARRIVES VIA: Walk-In INFORMANT: Patient, ED PROVIDER(S): Sanford Luis DO CHIEF COMPLAINT: stroke like symptoms HPI: This is a 80-year-old male with the PMHx of CAD, ischemic cardiomyopathy, HFrEF, carotid artery stenosis, vascular dementia, hypertension, dyslipidemia, gout, and CKD presenting to [facility] for further evaluation of stroke like symptoms. Patient is accompanied by his who provide additional history. provides the majority of history. The patient has an extensive vascular history. Patient woke up this morning with lightheadedness/dizziness. He did okay early in the morning and then around 11 AM developed worsening symptoms. The symptoms include severe dysarthria as well as a left-sided facial droop. His left-sided facial droop is acute on chronic. notes that it is worse. Lower half of the face. Patient's blood pressure has also been hypotensive at home. He reports generalized weakness, fatigue and malaise. They deny fever or chills. No cough or congestion. Denies chest pain or palpitations. No shortness of breath. They deny abdominal pain, nausea and vomiting. No urinary complaints. No recent changes in bowel movements. Patient denies recent changes in medications or OTC supplements. Patient offers no other complaints, today. ADDITIONAL HISTORY OBTAINED: Per HPI Chronic Medical/Social Conditions Affecting Care: Per HPI PAST MEDICAL HISTORY: See Below PAST SURGICAL HISTORY: See Below FAMILY HISTORY: See Below SOCIAL HISTORY: See Below HOME MEDICATIONS: See Below ALLERGIES: See Below VITALS: See Below PHYSICAL EXAMINATION: GENERAL: Sitting up in bed, alert, well appearing, well nourished, no distress, non-toxic EYE EXAM: normal conjunctiva. PERRL and EOM's grossly intact. OROPHARYNX: no exudate, no erythema, lips, buccal mucosa, and tongue normal and mucous membranes are moist NECK: supple, no nuchal rigidity, no adenopathy, non-tender LUNGS: Clear to auscultation. Normal chest wall mechanics HEART: no murmurs, regular rate, regular rhythm ABDOMEN: abdomen soft, non-tender, no masses, no rebound or guarding. BACK: Back is symmetrical on inspection and there is no deformity, no midline tenderness, no CVA tenderness. SKIN: no rashes and no bruising UPPER EXTREMITIES: upper extremities are grossly normal. LOWER EXTREMITIES: 3+ pitting edema bilaterally. NEURO EXAM: Normal sensorium, GCS 15, normal speech, no gross weakness of arms, drift with the weakness of legs. No drift. Finger to nose intact. Gross sensation intact. NIHSS 4. MEDICAL DECISION MAKING: Differential diagnoses includes but not limited to CVA, ICH, hydrocephalus, peripheral vertigo, CHF, hypervolemia, electrolyte derangements In summary, this is a 80 year old male who presented with lightheadedness and stroke like symptoms. Differential as above. Nursing notes and pertinent past medical records reviewed. Vital signs reviewed and the patient is afebrile and HDS. History and presentation revealed extensive cardiovascular disease with stroke like symptoms. Physical examination revealed NIHSS 4. As a result of my initial evaluation, symptoms could be consistent with stroke. Significant vascular disease. Multiple risk factors. Patient is also anticoagulated. Giving timing, patient would be a candidate for certain therapies including thrombectomy. Doubt candidate for TNK. Patient could have posterior circulation stroke given symptoms. Will likely need to proceed with MRI imaging following CTAs. Diagnostics interpreted by me include EKG and cardiac monitoring as listed below: -Cardiac Monitoring: An order was placed for continuous cardiac monitoring. The monitor shows a rate of 60-80s with regular rhythm. -ECG: AV paced rhythm at [address] segment changes to suggest STEMI. Patient completed laboratory studies and imaging. Results independently interpreted by me are stable leukopenia and anemia. Platelets are normal. MCKENZIE on CKD. Electrolytes largely unremarkable. BNP elevated. The patient was managed with close observation. CTH independently interpreted by me reveals no evidence of ICH. No significant hydrocephalus. No major skull fractures. CTH does not demonstrate findings to suggest an etiology of the patient's symptoms or presentation, today. Personally discussed with [facility]. See their note for further details. Discussed with patient and his regarding incompatibility with MRI. I discussed with him that this would not necessarily change any management. He is already on stroke reduction therapy. I do feel anticoagulation should be discussed with his atomic process engineer. I do feel that initiation of baby aspirin is appropriate. The patient needs admission more so for his symptoms in the setting of worsening kidney disease and fluid overload state likely from CHF exacerbation. CXR shows cardiomegaly and some interstitial edema. His symptoms could be consistent with peripheral vertigo as well. Ultimately, the decision was made to admit the patient for CHF exacerbation with MCKENZIE on CKD complicated by strokelike symptoms. It was recommended to admit this patient at 1541. I discussed the case with the hospitalist service via telephone/TigerText and they are agreeable to admit the patient to their services. Based on the above, including the patient's age, coexisting illnesses, labs, imaging, and exam findings the decision to treat as an inpatient. I discussed the patient with the hospitalist team who recommended admission to their services. They received the medications, treatments, interventions indicated above and their condition remained guarded. I discussed my findings with the patient and their family and they understand and agree with the treatment plan. All patient / family questions were answered to their satisfaction. Case discussed with consultants including Dr. Mcknight [facility]. Consider stopping Apixaban. Low dose ASA. Admission and MRI was agreed upon. Consults/Care Managements Discussions: Per [facility] ER treatment provided: See above Procedures: None Critical Care: None The chart was completed utilizing [employer] Speech voice recognition software. Grammatical errors, random word insertions, pronoun errors, and incomplete sentences are an occasional consequence of this system due to software limitations, ambient noise, and hardware issues. Any formal questions or concerns about the content, text, or information contained within the body of this dictation should be directly addressed to the physician for clarification. Past Med/Surg History Problem List (Updated 11/05/25 @ 00:55 by Sanford Luis DO) Vertigo (Acute) MCKENZIE (acute kidney injury) (Acute) CHF exacerbation (Acute) Ambulatory dysfunction (Acute) Stroke-like symptoms (Acute) Acute worsening of stage 3 chronic kidney disease Stroke-like symptoms S/P vascular surgery Hypotension (Acute) Chronic HFrEF (heart failure with reduced ejection fraction) Vitamin D deficiency Ischemic cardiomyopathy Stage 3b chronic kidney disease (CKD) Bilateral carotid artery stenosis History of orthostatic hypotension CHF (congestive heart failure) (Acute) Shortness of breath (Acute) Advanced care planning/counseling discussion HOYT (dyspnea on exertion) (Acute) Pulmonary edema (Acute) History of CVA (cerebrovascular accident) Vascular dementia Generalized weakness (Acute) Ambulatory dysfunction (Acute) NSVT (nonsustained ventricular tachycardia) (Acute) Chronic bundle branch block LBBB Left knee DJD Paroxysmal A-fib TIA (transient ischemic attack) (Chronic) HTN (hypertension) Peripheral vascular disease (Chronic) GERD (gastroesophageal reflux disease) (Chronic) Gout (Chronic) Dyslipidemia Medical History Coronary artery disease PVD (peripheral vascular disease) NSVT (nonsustained ventricular tachycardia) Hx of non-ST elevation myocardial infarction (NSTEMI) (2019) Chronic HFrEF (heart failure with reduced ejection fraction) ICD (implantable cardioverter-defibrillator) in place Ambulatory dysfunction Vascular dementia Hx of orthostatic hypotension History of CVA (cerebrovascular accident) Hx of gout Generalized weakness HOYT (dyspnea on exertion) Dyslipidemia BPH (benign prostatic hyperplasia) Orthostasis 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 CKD (chronic kidney disease) stage 3, GFR 30-59 ml/min Elevated troponin LBBB (left bundle branch block) Atrial fibrillation with rapid ventricular response Stenosis of left internal carotid artery Ischemic cardiomyopathy GERD (gastroesophageal reflux disease) Hypertension Diabetes mellitus, type 2 Surgical History (Updated 09/18/25 @ 00:08 by Donnell Gil) Hx of cervical spine surgery "years ago," no ROM limitations History of esophagogastroduodenoscopy (EGD) Hx of colonoscopy Hx of tonsillectomy Hx of bilateral cataract extraction History of Amie fundoplication "years ago" Hx of umbilical hernia repair x2 History of total right knee replacement History of total left knee replacement S/P ICD (internal cardiac defibrillator) procedure (2020) [facility]; f/u serafin manzanares cardio History of coronary artery stent placement LAD and RCA 2018, [facility] S/P CABG x 2 1999, [facility]; f/u serafin manzanares cardio Family History Mother Stroke Denies family history of Crohn's disease Colorectal cancer Ulcerative colitis Social History (Updated 10/07/25 @ 08:59 by Steven Mortensen) Smoking Status: Former smoker Tobacco Type: Cigarettes Cigarettes Per Day: 1 pack/ day; Smoking End Date: 1988; Second Hand Exposure: No; Do You Dip or Chew Tobacco: No; Hx Alcohol Use: No Hx Substance Use: No Preferred Language: Egyptian Communication Ability: Effective Communication Ability Comment: [phone] 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 Beliefs That Will Affect Care: None marital status: Current Living Situation: Spouse Current Living Situation Comment: lives at home with current occupation: Retired Feels Safe at Home: Yes Safety Concerns: Feels Safe At This Time Assistive Devices: Cane and Walker Allergies Allergies Allergy/AdvReac Type Severity Reaction Status Date / Time No Known Allergies Allergy Verified 11/04/25 15:20 Home Meds Home Medications Medication Instructions Recorded Confirmed nitroglycerin 0.4 mg sublingual 0.4 mg sublingual Q5M PRN Chest 08/15/17 11/04/25 tablet Pain ##0 rosuvastatin 40 mg tablet (Crestor) 40 mg PO QAM 03/30/19 11/04/25 montelukast 10 mg tablet 10 mg PO QAM 03/15/21 11/04/25 ezetimibe 10 mg tablet (Zetia) 10 mg PO QAM 07/29/21 11/04/25 pregabalin 75 mg capsule (Lyrica) 75 mg PO QID 05/10/22 11/04/25 ascorbic acid (vitamin C) 1,000 mg 1 g PO HS 10/18/23 11/04/25 tablet (Vitamin C) cyanocobalamin (vitamin B-12) 500 mcg PO HS 10/18/23 11/04/25 1,000 mcg tablet (Vitamin B-12) finasteride 5 mg tablet (Proscar) 5 mg PO QAM 10/18/23 11/04/25 metoprolol succinate 25 mg 25 mg PO QPM 07/21/25 11/04/25 tablet,extended release 24 hr midodrine 5 mg tablet 5 mg PO TID 08/24/25 11/04/25 amiodarone 200 mg tablet 200 mg PO BID 09/07/25 11/04/25 ticagrelor 90 mg tablet 90 mg PO BID 09/07/25 11/04/25 doxycycline hyclate 100 mg capsule 100 mg PO BID 11/04/25 11/04/25 levothyroxine 50 mcg tablet 50 mcg PO DAILY@0600 11/04/25 11/04/25 torsemide 20 mg tablet 20 mg PO DAILY 11/04/25 11/04/25 Previous Rx's Medication Instructions Recorded apixaban 5 mg tablet (Eliquis) 5 mg PO BID #60 tabs 06/25/25 Results & Data (ED) Vital Signs Vital Signs - 24 hr 11/04/25 13:48 11/04/25 14:03 11/04/25 15:24 Temperature 36.6 C Temperature Source Temporal Artery Scan Pulse Rate 87 61 Pulse Rate [Apical] Respiratory Rate 18 Respiratory Effort / Characteristics Non-Labored Spontaneous Respiratory Depth Normal Respiratory Pattern Regular Blood Pressure 110/67 Blood Pressure [Right Arm] Blood Pressure Mean 81 Blood Pressure Mean [Right Arm] Blood Pressure Position Sitting Pulse Oximetry 96 96 Oxygen Delivery Method Room Air Room Air Sepsis Recent Fever Within 48 Hours No Sepsis New/Unexplained Change in Mental Status N/A Sepsis Action Taken by Nursing No Action Required 11/04/25 15:24 11/04/25 15:57 11/04/25 16:00 Temperature Temperature Source Pulse Rate Pulse Rate [Apical] 62 69 Respiratory Rate 21 16 Respiratory Effort / Characteristics Respiratory Depth Respiratory Pattern Blood Pressure Blood Pressure [Right Arm] 149/102 H 138/83 138/83 Blood Pressure Mean Blood Pressure Mean [Right Arm] 117 101 101 Blood Pressure Position Pulse Oximetry 98 98 Oxygen Delivery Method Room Air Room Air Sepsis Recent Fever Within 48 Hours Sepsis New/Unexplained Change in Mental Status Sepsis Action Taken by Nursing Laboratory Data 11/04/25 14:01 11/04/25 14:01 Lab Results 11/04/25 Range/Units 14:01 WBC 4.78 L (4.8-10.8) K/ul RBC 3.79 L (4.70-6.10) M/uL Hgb 12.2 L (14.0-18.0) g/dL Hct 36.4 L (42.0-52.0) % MCV 96.0 (80.0-100.0) fL MCH 32.2 (25.0-34.0) pg MCHC 33.5 (32.0-36.0) g/dL RDW Std Deviation 50.6 H (36.4-46.3) fL RDW Coeff of Leela 14.2 (11.5-14.5) % Plt Count 153 (130-400) K/uL MPV 11.9 (9.4-12.4) fL Immature Gran % (Auto) 0.2 % Neut % (Auto) 64.5 % Lymph % (Auto) 20.7 % [place] % (Auto) 12.3 % Eos % (Auto) 1.0 % Baso % (Auto) 1.3 % Neut # (Auto) 3.08 (1.40-6.50) K/uL Lymph # (Auto) 0.99 L (1.20-3.40) K/uL [place] # (Auto) 0.59 (0.11-0.59) K/uL Eos # (Auto) 0.05 (0.00-0.50) K/uL Baso # (Auto) 0.06 (0.00-0.20) K/uL Immature Gran # (Auto) 0.01 (0.01-0.20) K/uL PT 12.2 H (9.0-12.0) Seconds INR 1.2 H (0.9-1.1) APTT 27 (21-31) Seconds PTT Ratio 1.0 Sodium 145 (136-145) mmol/L Potassium 4.1 (3.5-5.1) mmol/L Chloride 111 H (98-107) mmol/L Carbon Dioxide 27 (21-32) mmol/L Anion Gap 7 (3-11) BUN 80 H (6-23) mg/dl Creatinine 3.11 H (0.6-1.4) mg/dl Est Cr Clr Drug Dosing Not Reportable eGFR 19.74 BUN/Creatinine Ratio 25.7 H (10-20) Glucose 83 (70-99(Fasting)) mg/dl Calcium 8.9 (8.6-10.3) mg/dl Magnesium 2.3 (1.7-2.4) mg/dl Total Bilirubin 0.6 (0.2-1.0) mg/dl AST 45 H (13-39) U/L ALT 50 (7-52) U/L Alkaline Phosphatase 70 (34-104) U/L Troponin I High Sens 12.8 (0-20) pg/ml B-Natriuretic Peptide 309 H (0-100) pg/ml Total Protein 7.1 (6.0-8.3) gm/dl Albumin 4.0 (3.4-5.0) gm/dl Globulin 3.1 (2.5-4.0) gm/dl Albumin/Globulin Ratio 1.3 (0.9-2) Administered Medications Amiodarone HCl (Amiodarone 200 Mg Tab) 200 mg PO BID GITA Stop: 12/04/25 20:59 Last Admin: 11/04/25 20:11 Dose: 200 mg Documented By: RYLEE Apixaban (Apixaban 5 Mg Tablet) 5 mg PO BID GITA Stop: 12/04/25 20:59 Last Admin: 11/04/25 20:11 Dose: 5 mg Documented By: RYLEE Sodium Chloride (Nss) 1,000 mls @ 60 mls/hr IV .[id number] GITA Stop: 11/05/25 09:24 Last Admin: 11/04/25 17:28 Dose: 60 mls/hr Documented By: KWAKU Ticagrelor (Ticagrelor 90 Mg Tab) 90 mg PO BID GITA Stop: 12/04/25 20:59 Last Admin: 11/04/25 21:23 Dose: 90 mg Documented By: KDL Discontinued Medications Ioversol (Optiray 320 125ml) 115 ml IV ONCE ONE Stop: 11/04/25 14:32 Last Admin: 11/04/25 14:31 Dose: 115 ml Documented By: CHRISTINE Imaging Data Radiologist's Impression: Head CT 11/04/25 14:12 CT SCAN OF THE BRAIN WITHOUT IV CONTRAST CLINICAL HISTORY: Neurological deficit. Stroke like symptoms. COMPARISON STUDY: CT of the brain dated 08/24/2025. TECHNIQUE: Unenhanced CT scan of the brain is performed from the vertex to the skull base. Images are reviewed in the axial, sagittal, coronal planes. A dose lowering technique was utilized adhering to the principles of ALARA. FINDINGS: Brain parenchyma: Foci of right occipital, left posterior parietal comment right frontal encephalomalacia are unchanged and consistent with remote infarcts. There is a chronic lacunar infarct in the left basal ganglia. There is age- related involutional change noting moderate subcortical and periventricular microangiopathic disease. There is no hemorrhage, mass effect, or evidence of acute territorial ischemia by CT criteria. Cardenas-white matter differentiation is preserved. No extra-axial fluid collection is seen. Ventricles, sulci, cisterns: Prominent secondary to involutional change. Intracranial vasculature: There is atherosclerotic calcification of the cavernous carotid and vertebral arteries. Calvarium: Unremarkable. Sinuses and mastoids: There is trace mucosal thickening in the right maxillary sinus, the left frontal sinus, and ethmoid sinuses. The mastoid air cells are well pneumatized. Orbits: The bony orbits are grossly intact. There are bilateral ocular lens implants. IMPRESSION: Chronic infarcts as above with no hemorrhage, mass effect, or evidence of acute territorial ischemia by CT criteria. ACT 112: Negative or not required by law. Electronically signed by: Linden Thacker M.D. 11/04/2025 2:46 PM Head CTA 11/04/25 14:12 CT angio head w con CLINICAL HISTORY: 80 years-old Male with neuro deficit, acute stroke suspected. Acute stroke like symptoms COMPARISON STUDY: Head CT of same day, CTA head 06/24/2025, 04/02/2019 TECHNIQUE: Following the IV administration of 115 cc of Optiray, CT angiogram of the brain was performed from the skull base to the vertex. Images are reviewed in the axial, sagittal, and coronal planes. 3-D MIPS images are created and assessed. IV contrast was administered without complication. All measurements were obtained according to NASCET criteria. A dose lowering technique was utilized adhering to the principles of ALARA. CT DOSE: 1643.44 mGy.cm FINDINGS: CT BRAIN: Dictated separately. Involutional changes with chronic microvascular ischemic disease and chronic infarcts again noted. CT ANGIOGRAM OF THE BRAIN: There is prominent atherosclerosis of the distal internal carotid arteries with at least moderate stenosis of the bilateral clinoid and cavernous segments with areas of moderate to high-grade stenosis noted involving the clinoid and supraclinoid segments. Chronic appearance of the middle cerebral arteries without significant flow identified within either M1 segment. Small amount of flow noted within the distal MCA branches which is similar to prior and likely secondary to collateral flow. The anterior cerebral arteries are patent. Atherosclerosis with moderate stenosis involving the distal vertebral arteries. Patent left posterior cerebral artery. Chronic appearance of the right posterior cerebral artery with high-grade stenosis versus occlusion of the P1 segment and probable distal reconstitution of flow. Cerebral venous sinuses appear patent. There is no abnormal intracranial enhancement. IMPRESSION: 1. Stable exam compared to the CTA head from 06/24/2025. 2. Chronic high-grade stenosis/occlusion of the M1 segments of the middle cerebral arteries with distal reconstitution of flow. 3. Chronic high grade stenosis versus occlusion of the right posterior cerebral artery. 4. Chronic moderate to high-grade stenoses of the distal internal carotid arteries. ACT 112: Negative or not required by law. The above report was generated using voice recognition software. It may contain grammatical, syntax or spelling errors. Electronically signed by: Don Dennis M.D. 11/04/2025 2:58 PM Neck CTA 11/04/25 14:12 CT ANGIOGRAPHY OF THE NECK WITH CONTRAST CLINICAL HISTORY: neuro deficit, acute stroke suspected COMPARISON STUDY: CTA of the neck June 24, 2025. Carotid ultrasound August 26, 2025. Technique: CT angiography of the carotid and vertebral arteries was obtained using Optiray and 3D reconstruction on an independent workstation. NASCET criteria was utilized. Automated exposure control was utilized for the study. A dose lowering technique was utilized adhering to the principles of ALARA. Findings: Visualized lung apices are unremarkable. Pacer leads are partially imaged. There are no cervical spine fractures. Status post C5-C6 anterior discectomy and fusion. Multilevel degenerative changes within the cervical spine are present. There is moderate stenosis of the proximal right vertebral artery due to calcified plaque. There is also moderate stenosis of the intracranial portion the right vertebral artery which is unchanged since prior CTA. There is moderate to severe stenosis of the intracranial portion of the left vertebral artery, also unchanged. Atherosclerotic plaque results in mild stenosis of 40% of the proximal right internal carotid artery which is unchanged. There is been interval transcarotid arterial revascularization within the left carotid. Narrowing has significantly improved following stent placement. There is moderate luminal narrowing within the mid aspect of the stent. The cervical left internal carotid artery is patent. There is severe stenosis of the petrous portion of the left internal carotid artery and moderate stenosis of the petrous portion of the right internal carotid artery. CTA of the head will be reported separately. IMPRESSION: 1. Interval left carotid transarterial revascularization with significant interval improvement in vessel narrowing since prior CTA. Moderate luminal narrowing within the mid aspect of the stent. 2. No change in 40% stenosis of the proximal right internal carotid artery. 3. Redemonstration of multifocal stenoses within the bilateral vertebral arteries, as detailed above. 4. Severe stenosis of the petrous portion of the left internal carotid artery and moderate stenosis of the petrous portion of the right internal carotid artery. ACT 112: Negative or not required by law. Electronically signed by: Dexter Ibarra M.D. 11/04/2025 3:03 PM Chest X-Ray 11/04/25 15:36 XR chest 1V portable HISTORY: 80 years-old Male eval for pulm edema acute shortness of breath COMPARISON: Chest radiograph 08/25/2025 TECHNIQUE: AP view of the chest FINDINGS: Cardiac silhouette is enlarged. Median sternotomy. Left subclavian pacer/AICD. Mild chronic interstitial coarsening. No pneumothorax, pleural effusion or overt pulmonary edema. Sigmoidal scoliosis of the spine. IMPRESSION: Cardiomegaly without overt pulmonary edema. ACT 112: Negative or not required by law. The above report was generated using voice recognition software. It may contain grammatical, syntax or spelling errors. Electronically signed by: Don Dennis M.D. 11/04/2025 3:53 PM Discharge Plan Visit Data Chief Complaint: Stroke/CVA Symptoms Stated Complaint: REF BY DOC, STROKE SX, LOW BP 72/46 ED Provider: Sanford Luis Discharge Problem: Stroke-like symptoms, Ambulatory dysfunction, CHF exacerbation, MCKENZIE (acute kidney injury), Vertigo Patient Disposition: Admitted As Inpatient Condition: Serious Discharge Instructions Interventions: ED Discharge Assessment Last Done: 11/04/25 18:34
[2025-11-04] MEDS: OPTIRAY 320 125ml IV ONE (14:31)
[2025-11-04 14:41] LABS: Alanine Aminotransferase 50 U/L (7-52); Albumin Globulin Ratio 1.3 (0.9-2); Albumin Level 4.0 gm/dl (3.4-5.0); Alkaline Phosphatase 70 U/L (34-104); Anion Gap 7 (3-11); Bilirubin,Total 0.6 mg/dl (0.2-1.0); Blood Urea Nitrogen 80 mg/dl (6-23); Calcium 8.9 mg/dl (8.6-10.3); Carbon Dioxide 27 mmol/L (21-32); Chloride 111 mmol/L (98-107); Globulin 3.1 gm/dl (2.5-4.0); Glucose 83 mg/dl (70-99(Fasting)); Magnesium 2.3 mg/dl (1.7-2.4); Potassium 4.1 mmol/L (3.5-5.1); Sodium 145 mmol/L (136-145); Total Protein 7.1 gm/dl (6.0-8.3)
--- NOTE | 2025-11-04 14:47 | CT Scan Report ---
CT SCAN OF THE BRAIN WITHOUT IV CONTRAST CLINICAL HISTORY: Neurological deficit. Stroke like symptoms. COMPARISON STUDY: CT of the brain dated 08/24/2025. TECHNIQUE: Unenhanced CT scan of the brain is performed from the vertex to the skull base. Images are reviewed in the axial, sagittal, coronal planes. A dose lowering technique was utilized adhering to the principles of ALARA. FINDINGS: Brain parenchyma: Foci of right occipital, left posterior parietal comment right frontal encephalomal acia are unchanged and consistent with remote infarcts. There is a chronic lacunar infarct in the lef t basal ganglia. There is age-related involutional change noting moderate subcortical and periventric ular microangiopathic disease. There is no hemorrhage, mass effect, or evidence of acute territorial ischemia by CT criteria. Cardenas-white matter differentiation is preserved. No extra-axial fluid collect ion is seen. Ventricles, sulci, cisterns: Prominent secondary to involutional change. Intracranial vasculature: There is atherosclerotic calcification of the cavernous carotid and vertebr al arteries. Calvarium: Unremarkable. Sinuses and mastoids: There is trace mucosal thickening in the right maxillary sinus, the left fronta l sinus, and ethmoid sinuses. The mastoid air cells are well pneumatized. Orbits: The bony orbits are grossly intact. There are bilateral ocular lens implants. IMPRESSION: Chronic infarcts as above with no hemorrhage, mass effect, or evidence of acute territori al ischemia by CT criteria. ACT 112: Negative or not required by law. Electronically signed by: Linden Thacker M.D. 11/04/2025 2:46 PM
[2025-11-04 14:54] LABS: INR 1.2 (0.9-1.1); Partial Thromboplastin Time 27 Seconds (21-31); Prothrombin Time 12.2 Seconds (9.0-12.0)
--- NOTE | 2025-11-04 15:00 | CT Scan Report ---
CT angio head w con CLINICAL HISTORY: 80 years-old Male with neuro deficit, acute stroke suspected. Acute stroke like symptoms COMPARISON STUDY: Head CT of same day, CTA head 06/24/2025, 04/02/2019 TECHNIQUE: Following the IV administration of 115 cc of Optiray, CT angiogram of the brain was perfor med from the skull base to the vertex. Images are reviewed in the axial, sagittal, and coronal planes . 3-D MIPS images are created and assessed. IV contrast was administered without complication. All me asurements were obtained according to NASCET criteria. A dose lowering technique was utilized adherin g to the principles of ALARA. CT DOSE: 1643.44 mGy.cm FINDINGS: CT BRAIN: Dictated separately. Involutional changes with chronic microvascular ischemic disease and chronic inf arcts again noted. CT ANGIOGRAM OF THE BRAIN: There is prominent atherosclerosis of the distal internal carotid arteries with at least moderate sunshine nosis of the bilateral clinoid and cavernous segments with areas of moderate to high-grade stenosis n oted involving the clinoid and supraclinoid segments. Chronic appearance of the middle cerebral arter ies without significant flow identified within either M1 segment. Small amount of flow noted within t he distal MCA branches which is similar to prior and likely secondary to collateral flow. The anterio r cerebral arteries are patent. Atherosclerosis with moderate stenosis involving the distal vertebral arteries. Patent left posterior cerebral artery. Chronic appearance of the right posterior cerebral artery with high-grade stenosis versus occlusion of the P1 segment and probable distal reconstitution of flow. Cerebral venous sinuses appear patent. There is no abnormal intracranial enhancement. IMPRESSION: 1. Stable exam compared to the CTA head from 06/24/2025. 2. Chronic high-grade stenosis/occlusion of the M1 segments of the middle cerebral arteries with dist al reconstitution of flow. 3. Chronic high grade stenosis versus occlusion of the right posterior cerebral artery. 4. Chronic moderate to high-grade stenoses of the distal internal carotid arteries. ACT 112: Negative or not required by law. The above report was generated using voice recognition software. It may contain grammatical, syntax o r spelling errors. Electronically signed by: Don Dennis M.D. 11/04/2025 2:58 PM
--- NOTE | 2025-11-04 15:05 | CT Scan Report ---
CT ANGIOGRAPHY OF THE NECK WITH CONTRAST CLINICAL HISTORY: neuro deficit, acute stroke suspected COMPARISON STUDY: CTA of the neck June 24, 2025. Carotid ultrasound August 26, 2025. Technique: CT angiography of the carotid and vertebral arteries was obtained using Optiray and 3D rec onstruction on an independent workstation. NASCET criteria was utilized. Automated exposure control was utilized for the study. A dose lowering technique was utilized adhering to the principles of ALA RA. Findings: Visualized lung apices are unremarkable. Pacer leads are partially imaged. There are no cer vical spine fractures. Status post C5-C6 anterior discectomy and fusion. Multilevel degenerative hernandez ges within the cervical spine are present. There is moderate stenosis of the proximal right vertebral artery due to calcified plaque. There is also moderate stenosis of the intracranial portion the righ t vertebral artery which is unchanged since prior CTA. There is moderate to severe stenosis of the in tracranial portion of the left vertebral artery, also unchanged. Atherosclerotic plaque results in mi ld stenosis of 40% of the proximal right internal carotid artery which is unchanged. There is been in terval transcarotid arterial revascularization within the left carotid. Narrowing has significantly i mproved following stent placement. There is moderate luminal narrowing within the mid aspect of the s tent. The cervical left internal carotid artery is patent. There is severe stenosis of the petrous po rtion of the left internal carotid artery and moderate stenosis of the petrous portion of the right i nternal carotid artery. CTA of the head will be reported separately. IMPRESSION: 1. Interval left carotid transarterial revascularization with significant interval improvement in ves fadia narrowing since prior CTA. Moderate luminal narrowing within the mid aspect of the stent. 2. No change in 40% stenosis of the proximal right internal carotid artery. 3. Redemonstration of multifocal stenoses within the bilateral vertebral arteries, as detailed above. 4. Severe stenosis of the petrous portion of the left internal carotid artery and moderate stenosis o f the petrous portion of the right internal carotid artery. ACT 112: Negative or not required by law. Electronically signed by: Dexter Ibarra M.D. 11/04/2025 3:03 PM
--- NOTE | 2025-11-04 15:54 | XRay Report ---
XR chest 1V portable HISTORY: 80 years-old Male eval for pulm edema acute shortness of breath COMPARISON: Chest radiograph 08/25/2025 TECHNIQUE: AP view of the chest FINDINGS: Cardiac silhouette is enlarged. Median sternotomy. Left subclavian pacer/AICD. Mild chronic interstit ial coarsening. No pneumothorax, pleural effusion or overt pulmonary edema. Sigmoidal scoliosis of th e spine. IMPRESSION: Cardiomegaly without overt pulmonary edema. ACT 112: Negative or not required by law. The above report was generated using voice recognition software. It may contain grammatical, syntax o r spelling errors. Electronically signed by: Don Dennis M.D. 11/04/2025 3:53 PM
--- NOTE | 2025-11-04 16:25 | Electrocardiogram Report ---
Test Reason : Blood Pressure : */* mmHG Vent. Rate : 64 BPM Atrial Rate : 64 BPM P-R Int : 170 ms QRS Dur : 148 ms QT Int : 460 ms P-R-T Axes : * -19 147 degrees QTcB Int : 474 ms AV dual-paced rhythm Abnormal ECG When compared with ECG of 15-Sep-2025 16:46, Vent. rate has decreased by 5 bpm Premature ventricular complexes are no longer Present Confirmed by Oli Reyes ([id number]) on 11/04/2025 4:25:23 PM Referred By: Confirmed By: Oli Reyes
[2025-11-04] MEDS ORDERED: PHARMACIST DISCHARGE MED REC CONSULT PRN (16:42)
--- NOTE | 2025-11-04 16:48 | History & Physical Report ---
Date of Service November 04, 2025 Assessment & Plan (1) Stroke-like symptoms: (2) History of CVA (cerebrovascular accident): (3) Acute worsening of stage 3 chronic kidney disease: Plan: 80-year-old male with history of CVA,coronary disease, CABG, CHF R EF, c ardiomyopathy, status post AICD, paroxysmal atrial fibrillation on Eliquis PVD, carotid artery stenosis, diabetes type 2, CKD stage III-IV presenting with dysarthria and right-sided facial droop which started this morning. Strokelike symptoms-dysarthria, right-sided facial droop Rule out TIA versus acute CVA history of CVA, cerebral artery stenosis, A-fib on Eliquis - blood pressure noted to be systolic 80s when symptoms of dysarthria, right- sided facial droop and dizziness started at home - CT head: No acute CVA CT angiogram head and neck: Chronic findings of multiple cerebral artery stenoses - stroke alert called, neurology telemedicine evaluation performed, TNK not recommended as patient already on Eliquis and symptoms seems to be resolving - brain MRI contraindicated as patient has AICD - stroke protocol order set placed - plan is to hold usual metoprolol, torsemide to allow permissive hypertension in the setting of suspected TIA versus acute CVA current blood pressure is 138/83, seems to be trending up since admission without intervention/fluid boluses, hold midodrine to prevent possible hypertensive urgency monitor blood pressure closely - continue usual Eliquis 5 mg twice daily neurology service consulted PT and OT evaluation tomorrow Acute kidney injury on CKD stage III - unclear inciting event, patient denies poor oral intake, vomiting, diarrhea - baseline creatinine 2.4, currently 3.11 - hold torsemide initiate NSS at 60 cc/h x 1 L repeat BMP tomorrow in light of complex comorbidities, will consult nephrology service - decrease Lyrica 75 mg 4 times daily to daily other chronic medical conditions: CAD status post CABG-continue ticagrelor, Zetia, rosuvastatin CHF with reduced ejection fraction, cardiomyopathy, status post AICD placement- currently patient is hypovolemic, hold torsemide Paroxysmal atrial fibrillation- hold metoprolol for now, continue amiodarone and Eliquis PVD, carotid artery stenosis-continue rosuvastatin and ticagrelor Diabetes type 2-not on any medications, last A1c was 6.9 as of June 2025, BSG at the ER is 83 chronic anemia-hemoglobin at baseline, 12 DVT prophylaxis continue usual Eliquis twice daily for A-fib Full code Disposition Admit to PCU plan of care discussed with patient And his Piper at the bedside in detail and at length all questions answered they are understanding, agreeable, comfortable with the plan of care total time spent 60 minutes including discussion with ER provider, review of outpatient and inpatient records, history and physical examination with the patient and family, formulation of plan of care, etc. History of Present Illness Chief Complaint: strokelike symptoms including dysarthria, right-sided facial droop which started this morning Primary Care Provider: Santosh Ramírez MD 80-year-old male with history of CVA,coronary disease, CABG, CHF R EF, cardiomyopathy, status post AICD, paroxysmal atrial fibrillation on Eliquis PVD, carotid artery stenosis, diabetes type 2, CKD stage III-IV presenting with dysarthria and right-sided facial droop which started this morning. History obtained from patient and his Piper at the bedside. Patient was doing fine until this morning, upon waking up, the patient states felt very tired. While standing and working in the kitchen, he suddenly felt very dizzy, and felt that he was going to pass out. He was able to sit on the chair, and was checked by his . She noticed that patient was having slurred speech, worsening of baseline right facial droop and blurring of vision. Patient's was able to take his blood pressure and it measured systolic 80s. They called the patient's PCP and was advised to proceed to the ER. At the ER, blood pressure was 110/67, pulse rate of 87, respiratory rate 18, sat 96% on room air, afebrile. Stroke alert was called. 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 Creatinine noted to be elevated at 3.11 BNP 300s on my exam, the patient was seen sitting up in bed, comfortable, awake and alert, oriented x 3, answering all questions appropriately As per , the patient's dysarthria is still present but seems to be impro ving as well as his a right sided facial droop. The patient states he has dizziness has resolved, and also denying any headache, nausea or vomiting, blurring of vision, or any other focal neurologic deficits. No active chest pain or shortness of breath. He does not have any poor appetite, nausea or vomiting, diarrhea episodes at home. No NSAID use. Allergies Allergy/AdvReac Type Severity Reaction Status Date / Time No Known Allergies Allergy Verified 11/04/25 15:20 Home Medications Medication Instructions Recorded Confirmed Type nitroglycerin 0.4 mg sublingual 0.4 mg sublingual Q5M PRN Chest 08/15/17 11/04/25 History tablet Pain ##0 rosuvastatin 40 mg tablet (Crestor) 40 mg PO QAM 03/30/19 11/04/25 History montelukast 10 mg tablet 10 mg PO QAM 03/15/21 11/04/25 History ezetimibe 10 mg tablet (Zetia) 10 mg PO QAM 07/29/21 11/04/25 History pregabalin 75 mg capsule (Lyrica) 75 mg PO QID 05/10/22 11/04/25 History ascorbic acid (vitamin C) 1,000 mg 1 g PO HS 10/18/23 11/04/25 History tablet (Vitamin C) cyanocobalamin (vitamin B-12) 500 mcg PO HS 10/18/23 11/04/25 History 1,000 mcg tablet (Vitamin B-12) finasteride 5 mg tablet (Proscar) 5 mg PO QAM 10/18/23 11/04/25 History apixaban 5 mg tablet (Eliquis) 5 mg PO BID #60 tabs 06/25/25 11/04/25 Rx metoprolol succinate 25 mg 25 mg PO QPM 07/21/25 11/04/25 History tablet,extended release 24 hr midodrine 5 mg tablet 5 mg PO TID 08/24/25 11/04/25 History amiodarone 200 mg tablet 200 mg PO BID 09/07/25 11/04/25 History ticagrelor 90 mg tablet 90 mg PO BID 09/07/25 11/04/25 History doxycycline hyclate 100 mg capsule 100 mg PO BID 11/04/25 11/04/25 History levothyroxine 50 mcg tablet 50 mcg PO DAILY@0600 11/04/25 11/04/25 History torsemide 20 mg tablet 20 mg PO DAILY 11/04/25 11/04/25 History Past Med/Surg History Problem List (Updated 11/04/25 @ 17:14 by Jude Cadet MD) Acute worsening of stage 3 chronic kidney disease Stroke-like symptoms S/P vascular surgery Hypotension (Acute) Chronic HFrEF (heart failure with reduced ejection fraction) Vitamin D deficiency Ischemic cardiomyopathy Stage 3b chronic kidney disease (CKD) Bilateral carotid artery stenosis History of orthostatic hypotension CHF (congestive heart failure) (Acute) Shortness of breath (Acute) Advanced care planning/counseling discussion HOYT (dyspnea on exertion) (Acute) Pulmonary edema (Acute) History of CVA (cerebrovascular accident) Vascular dementia Generalized weakness (Acute) Ambulatory dysfunction (Acute) NSVT (nonsustained ventricular tachycardia) (Acute) Chronic bundle branch block LBBB Left knee DJD Paroxysmal A-fib TIA (transient ischemic attack) (Chronic) HTN (hypertension) Peripheral vascular disease (Chronic) GERD (gastroesophageal reflux disease) (Chronic) Gout (Chronic) Dyslipidemia Medical History Coronary artery disease PVD (peripheral vascular disease) NSVT (nonsustained ventricular tachycardia) Hx of non-ST elevation myocardial infarction (NSTEMI) (2018) Chronic HFrEF (heart failure with reduced ejection fraction) ICD (implantable cardioverter-defibrillator) in place Ambulatory dysfunction Vascular dementia Hx of orthostatic hypotension History of CVA (cerebrovascular accident) Hx of gout Generalized weakness HOYT (dyspnea on exertion) Dyslipidemia BPH (benign prostatic hyperplasia) Orthostasis 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 CKD (chronic kidney disease) stage 3, GFR 30-59 ml/min Elevated troponin LBBB (left bundle branch block) Atrial fibrillation with rapid ventricular response Stenosis of left internal carotid artery Ischemic cardiomyopathy GERD (gastroesophageal reflux disease) Hypertension Diabetes mellitus, type 2 Surgical History (Updated 09/18/25 @ 00:08 by Donnell Gil) Hx of cervical spine surgery "years ago," no ROM limitations History of esophagogastroduodenoscopy (EGD) Hx of colonoscopy Hx of tonsillectomy Hx of bilateral cataract extraction History of Amie fundoplication "years ago" Hx of umbilical hernia repair x2 History of total right knee replacement History of total left knee replacement S/P ICD (internal cardiac defibrillator) procedure (2020) [facility] [place]; f/u serafin manzanares cardio History of coronary artery stent placement LAD and RCA 2019, [facility] [place] [facility] [place]u serafin manzanares cardio Family History Mother Stroke Denies family history of Crohn's disease Colorectal cancer Ulcerative colitis Social History (Updated 10/07/25 @ 08:59 by Steven Mortensen) Smoking Status: Former smoker Tobacco Type: Cigarettes Cigarettes Per Day: 1 pack/ day; Second Hand Exposure: No; Do You Dip or Chew Tobacco: No; Hx Alcohol Use: No Hx Substance Use: No Preferred Language: Latvian Communication Ability: Effective Communication Ability Comment: [phone] Chemical Equipment Repairer Required: No Beliefs That Will Affect Care: None marital status: Current Living Situation: Spouse current occupation: Retired Feels Safe at Home: Yes Assistive Devices: Cane, Scooter/Electric Scooter and Stair Lift Review of Systems Review of Systems: all noted and negative except for above Physical Exam Physical Exam: General- oriented x 3, not in distress, speaks in sentences with no effort or accessory muscle use Head- atraumatic Eyes- PERRL, EOMI, anicteric ENT- positive dry oral mucosa,oropharynx clear Neck- supple, no JVD, no adenopathy, no thyromegaly; carotids +2/2, no bruits appreciated Lungs- clear to auscultation bilaterally, no rales/wheezes Heart- normal rate, regular rhythm; no murmur, no gallop, no rub appreciated Abdomen- normal bowel sounds, nondistended, soft, nontender, no masses or hepatosplenomegaly Extremities- no pretibial edema, no calf tenderness; peripheral pulses intact Neuro- alert, oriented x 3; CN 2-12 grossly intact except for some dysarthria, and right-sided facial droop; motor 5/5 bilaterally;sensation 100% on all extremities; no other gross focal neurologic deficits Skin- warm & dry Results & Data Results & Data Vital Signs (Past 12 Hours) Vital Signs Temp Pulse Pulse Resp BP BP Pulse Ox 11/04/25 16:00 138/83 11/04/25 15:57 69 16 138/83 98 11/04/25 15:24 62 21 149/102 H 98 11/04/25 15:24 96 11/04/25 14:03 61 11/04/25 13:48 36.6 C 87 18 110/67 96 O2 Del Method 11/04/25 16:00 11/04/25 15:57 Room Air 11/04/25 15:24 Room Air 11/04/25 15:24 Room Air 11/04/25 14:03 11/04/25 13:48 Room Air all noted and reviewed including below Code Status & VTE Plan VTE Prophylaxis Plan VTE Prophylaxis will be ordered: Yes
[2025-11-04] MEDS: SODIUM CHLORIDE 0.9% 1,000 ML IV SCH (17:28)
[2025-11-04] MEDS ORDERED: ACETAMINOPHEN 325 MG TAB PO PRN (19:57)
[2025-11-04] MEDS: AMIODARONE 200 MG TAB PO SCH (20:11)
[2025-11-04] MEDS: APIXABAN 5 MG TABLET PO SCH (20:11)
[2025-11-04] MEDS: TICAGRELOR 90 MG TAB PO SCH (21:23)
[2025-11-05] MEDS: LEVOTHYROXINE SODIUM 50 MCG TABLET PO SCH (06:01)
[2025-11-05 06:34] LABS: Hematocrit (blood only) 34.8 % (42.0-52.0); Hemoglobin 11.5 g/dL (14.0-18.0); Immature Granulocytes # (auto) 0.01 K/uL (0.01-0.20); Immature Granulocytes % (auto) 0.2 %; Mean Corpuscular Hemoglobin 31.1 pg (25.0-34.0); Mean Corpuscular Volume 94.1 fL (80.0-100.0); Platelet Count 139 K/uL (130-400); RDW Standard Deviation 49.1 fL (36.4-46.3); Red Blood Count 3.70 M/uL (4.70-6.10); White Blood Count 4.73 K/ul (4.8-10.8)
[2025-11-05 06:57] LABS: Alanine Aminotransferase 43.0 U/L (7-52); Albumin Globulin Ratio 1.4 (0.9-2); Albumin Level 3.7 gm/dl (3.4-5.0); Alkaline Phosphatase 63.0 U/L (34-104); Anion Gap 9.0 (3-11); Bilirubin,Total 0.6 mg/dl (0.2-1.0); Blood Urea Nitrogen 69.0 mg/dl (6-23); Calcium 8.5 mg/dl (8.6-10.3); Carbon Dioxide 23.0 mmol/L (21-32); Chloride 113.0 mmol/L (98-107); Cholesterol 102.0 mg/dl (0-200); Creatinine Clr Calc Pharmacy 31.6 ml/min; Globulin 2.7 gm/dl (2.5-4.0); Glucose 73.0 mg/dl (70-99(Fasting)); HDL Cholesterol 34.0 mg/dl; Potassium 4.2 mmol/L (3.5-5.1); Sodium 145.0 mmol/L (136-145); Total Protein 6.4 gm/dl (6.0-8.3); Triglycerides 153.0 mg/dl (0-150)
[2025-11-05 07:49] LABS: Hemoglobin A1C 6.0 % (4.5-5.6)
--- NOTE | 2025-11-05 09:18 | CT Scan Report ---
CT SCAN OF THE BRAIN WITHOUT IV CONTRAST CLINICAL HISTORY: Dysarthria. Right-sided facial droop. COMPARISON STUDY: Prior CT scans of the brain, most recently dated 11/04/2025. TECHNIQUE: Unenhanced CT scan of the brain is performed from the vertex to the skull base. Images are reviewed in the axial, sagittal, coronal planes. A dose lowering technique was utilized adhering to the principles of ALARA. FINDINGS: Brain parenchyma: Foci of right occipital, left posterior parietal, and right frontal encephalomalaci a are unchanged and consistent with remote infarcts. There is a chronic lacunar infarct in the left b levi ganglia. There is age-related involutional change noting moderate subcortical and periventricula r microangiopathic disease. There is no hemorrhage, mass effect, or evidence of acute territorial isc hemia by CT criteria. Cardenas-white matter differentiation is preserved. No extra-axial fluid collection is seen. Ventricles, sulci, cisterns: Prominent secondary to involutional change. Intracranial vasculature: There is atherosclerotic calcification of the cavernous carotid and vertebr al arteries. Calvarium: Unremarkable. Sinuses and mastoids: There is trace mucosal thickening in the right maxillary sinus, the left fronta l sinus, and the ethmoid sinuses. The mastoid air cells are well pneumatized. Orbits: The bony orbits are grossly intact. There are bilateral ocular lens implants. IMPRESSION: Chronic infarcts as above with no hemorrhage, mass effect, or evidence of acute territori al ischemia by CT criteria. Findings are similar to yesterday. ACT 112: Negative or not required by law. Electronically signed by: Linden Thacker M.D. 11/05/2025 9:17 AM
--- NOTE | 2025-11-05 09:27 | Nephrology Consultation ---
Date of Consultation November 05, 2025 Assessment & Plan (1) MCKENZIE (acute kidney injury): (2) Stage 3b chronic kidney disease (CKD): (3) Stroke-like symptoms: (4) Anemia of chronic disease: (5) Renal mass: Plan 80-year-old gentleman with stage IIIb/IV CKD in the setting of significant atherosclerotic disease, baseline creatinine lately staying around 2.2-2.5 mg/dl no significant proteinuria or hematuria on urinalysis. Admitted to the hospital with strokelike symptoms, imaging so far unremarkable. Could not have MRI because of AICD. Clinically no residual neurological symptom, speech normal. Blood pressure stable. Admission lab was notable for MCKENZIE, creatinine 3.1 which slightly improved to 2.6 this morning. Tolerating IV fluid. MCKENZIE most likely hemodynamically mediated with possible relatively low blood pressure some component of volume depletion, clinically otherwise asymptomatic. No residual neurological symptoms. -- Continue on IV normal saline for now, encourage increase p.o. intake, avoid fluid restriction -- Check renal panel and electrolyte in a.m., monitor intake and output -- will need noncontrast CT abdomen pelvis as outpatient to follow-up on the ? Left renal mass noted on renal ultrasound in August Thank you for allowing me to participate in your patient's care. It was a pleasure to see Tulio. History of Present Illness Reason for Consultation: MCKENZIE, stage 3B/4 CKD, Stroke like symptoms Attending Physician: Jerrell Nicholson, History of Present Illness Mr. Tulio Becerra is a 80 year-old male with PMH significant for stage IIIb/IV CKD, coronary artery disease, atherosclerotic disease, history of CVA, admitted to the hospital yesterday with strokelike symptoms. Nephrology consult requested for management of MCKENZIE with underlying advanced CKD. EMR records were reviewed in detail during patient's visit. was at bedside. Tulio presented to ER yesterday with history of dizziness and lightheadedness since yesterday morning. Through the day his symptoms worsen and eventually he started having dysarthria and worsening of chronic left-sided facial droop. Blood pressure was low and historically his blood pressure runs low and he has been on midodrine. He and his reports having decent p.o. intake and he tries to maintain his fluid intake. Has been voiding normally at home. By the time he presented to ER his symptoms were mostly improving and overall he was feeling well. Vital sign was stable. CTA head neck was negative for any acute finding but does have history of significant cerebrovascular disease. Had left sided TCAR on 09/15. On admission creatinine was 3.1 mg/dl, electrolyte was acceptable. Hemoglobin was 11.5. Sodium was 146. Chest x-ray showed cardiomegaly but no pulmonary vascular congestion. Midodrine and metoprolol has been on hold. Has been getting normal saline at 60 ml/h. Blood pressure staying relatively stable. Past medical history significant for stage III B/IV CKD most likely secondary to microvascular disease with significant atherosclerotic disease, baseline creatinine has been around 1 1.6-2.0 mg/dl but over last few months kidney function has been worsening with multiple hospitalization with hypotension, lately creatinine staying close to 2.2-2.5 mg/dl. Urinalysis with no significant proteinuria or hematuria. Renal ultrasound in August showed bilateral kidney around 10.2 cm, noted to have 2.1 cm solid lesion in upper part of left kidney and nonobstructing nephrolithiasis and noncontrast CT or MRI was recommended for follow-up. H/o CABG x 2, FOLEY to LAD and vein graft to the OM; PCI to the LAD and RCA in March 2019, h/o NSVT, ischemic cardiomyopathy (LVEF 30- 35%, - May 2025), HFrEF s/p BIV AICD in July 2021, L carotid artery stenosis s/p TCAR on 09/15/2025. History of CVA at age 30 of unclear etiology with residual R-sided facial droop and R hand weakness/sensory deficit, PAF s/p PABLO/DCCV in February 2021, DMII, no flow in bilateral middle cerebral arteries with collateralization suggestive of chronic high-grade stenosis and/or occlusion, intermittent LBBB, labile HTN with prior recommendations from neurology to keep BP on higher side to improve cerebral blood flow, vascular dementia, postgastric surgery syndrome and EDGAR. He reports overall feeling well this morning. No new neurological finding, speech improved and normalized. Blood pressure stable. No shortness of breath or chest pain. Morning lab was notable for improvement in kidney function, crea tinine down to 2.6, sodium 145. Allergies Allergy/AdvReac Type Severity Reaction Status Date / Time No Known Allergies Allergy Verified 11/04/25 15:20 Home Medications Medication Instructions Recorded Confirmed Type nitroglycerin 0.4 mg sublingual 0.4 mg sublingual Q5M PRN Chest 08/15/17 11/04/25 History tablet Pain ##0 rosuvastatin 40 mg tablet (Crestor) 40 mg PO QAM 03/30/19 11/04/25 History montelukast 10 mg tablet 10 mg PO QAM 03/15/21 11/04/25 History ezetimibe 10 mg tablet (Zetia) 10 mg PO QAM 07/29/21 11/04/25 History pregabalin 75 mg capsule (Lyrica) 75 mg PO QID 05/10/22 11/04/25 History ascorbic acid (vitamin C) 1,000 mg 1 g PO HS 10/18/23 11/04/25 History tablet (Vitamin C) cyanocobalamin (vitamin B-12) 500 mcg PO HS 10/18/23 11/04/25 History 1,000 mcg tablet (Vitamin B-12) finasteride 5 mg tablet (Proscar) 5 mg PO QAM 10/18/23 11/04/25 History apixaban 5 mg tablet (Eliquis) 5 mg PO BID #60 tabs 06/25/25 11/04/25 Rx metoprolol succinate 25 mg 25 mg PO QPM 07/21/25 11/04/25 History tablet,extended release 24 hr midodrine 5 mg tablet 5 mg PO TID 08/24/25 11/04/25 History amiodarone 200 mg tablet 200 mg PO BID 09/07/25 11/04/25 History ticagrelor 90 mg tablet 90 mg PO BID 09/07/25 11/04/25 History doxycycline hyclate 100 mg capsule 100 mg PO BID 11/04/25 11/04/25 History levothyroxine 50 mcg tablet 50 mcg PO DAILY@0600 11/04/25 11/04/25 History torsemide 20 mg tablet 20 mg PO DAILY 11/04/25 11/04/25 History Patient History Medical History Coronary artery disease PVD (peripheral vascular disease) NSVT (nonsustained ventricular tachycardia) Hx of non-ST elevation myocardial infarction (NSTEMI) (2018) Chronic HFrEF (heart failure with reduced ejection fraction) ICD (implantable cardioverter-defibrillator) in place Ambulatory dysfunction Vascular dementia Hx of orthostatic hypotension History of CVA (cerebrovascular accident) Hx of gout Generalized weakness HOYT (dyspnea on exertion) Dyslipidemia BPH (benign prostatic hyperplasia) Orthostasis 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 CKD (chronic kidney disease) stage 3, GFR 30-59 ml/min Elevated troponin LBBB (left bundle branch block) Atrial fibrillation with rapid ventricular response Stenosis of left internal carotid artery Ischemic cardiomyopathy GERD (gastroesophageal reflux disease) Hypertension Diabetes mellitus, type 2 Surgical History (Updated 09/18/25 @ 00:08 by Donnell Gil) Hx of cervical spine surgery "years ago," no ROM limitations History of esophagogastroduodenoscopy (EGD) Hx of colonoscopy Hx of tonsillectomy Hx of bilateral cataract extraction History of Amie fundoplication "years ago" Hx of umbilical hernia repair x2 History of total right knee replacement History of total left knee replacement S/P ICD (internal cardiac defibrillator) procedure (2020) [facility]; f/u serafin manzanares cardio History of coronary artery stent placement LAD and RCA 2018, [facility] S/P CABG x 2 1999, [facility] [place]; f/u serafin manzanares cardio Family History Mother Stroke Denies family history of Crohn's disease Colorectal cancer Ulcerative colitis Social History (Updated 10/07/25 @ 08:59 by Steven Mortensen) Smoking Status: Former smoker Tobacco Type: Cigarettes Cigarettes Per Day: 1 pack/ day; Smoking End Date: 1988; Second Hand Exposure: No; Do You Dip or Chew Tobacco: No; Hx Alcohol Use: No Hx Substance Use: No Preferred Language: Cuban Communication Ability: Effective Communication Ability Comment: [phone] Bull Ladle Tender Required: No Beliefs That Will Affect Care: None marital status: Current Living Situation: Spouse Current Living Situation Comment: lives at home with current occupation: Retired Feels Safe at Home: Yes Safety Concerns: Feels Safe At This Time Assistive Devices: Cane and Walker Review of Systems Review of Systems: All systems reviewed & are unremarkable except as noted in HPI & below Physical Exam Constitutional: WD/WN, vitals as above no acute distress Eyes: + anicteric sclerae Neck: normal visual inspection Respiratory: no respiratory distress Auscultation: lungs clear to auscultation bilaterally Cardiovascular: RRR, no murmur, no edema Gastrointestinal (Abdomen): Inspection/Auscultation: abdomen normal to inspection Musculoskeletal: Extremities: extremities normal to inspection Skin: no rashes, warm and dry Neurologic: no focal motor deficits Speech normal, No motor, sensory deficit Psychiatric: Orientation: alert and oriented x 3 Affect: euthymic affect Results & Data Vital Signs (Past 12 Hours) Vital Signs Temp Pulse Pulse Resp BP Pulse Ox O2 Del Method 11/05/25 07:40 60 11/05/25 07:08 36.5 C 65 20 139/72 96 Room Air 11/05/25 03:00 36.4 C L 73 18 111/66 97 Room Air 11/04/25 22:48 36.4 C L 75 18 104/68 97 Room Air 11/04/25 21:35 68 PG Care Time/CCT Total # of Minutes Spent Total Time Spent with Patient: Total time spent is greater than 50% in coordination of care (as documented) at patient's floor/unit and/or counseling patient: Coding Level of Care Code 96051 INT INP/OBS CARE 375MIN Diagnoses MCKENZIE (acute kidney injury) N17.9 Stage 3b chronic kidney disease (CKD) N18.32 Stroke-like symptoms R29.90 Anemia of chronic disease D63.8 Renal mass N28.89
[2025-11-05] MEDS: ROSUVASTATIN CALCIUM 20 MG TAB PO SCH (09:33)
[2025-11-05] MEDS: FINASTERIDE 5 MG TAB PO SCH (09:34)
[2025-11-05] MEDS: EZETIMIBE 10 MG TAB PO SCH (09:35)
[2025-11-05] MEDS: MONTELUKAST SODIUM 10 MG TABLET PO SCH (09:35)
[2025-11-05] MEDS: PREGABALIN 75 MG CAP PO SCH ×2 (09:38→20:37)
--- NOTE | 2025-11-05 10:02 | Neurology Consultation ---
Date of Consultation November 05, 2025 Assessment & Plan (1) Stroke-like symptoms: The patient presents with worsening right facial droop, worsening dysarthria, headache, diffuse weakness, and fatigue. His blood pressure was in the 70s on arrival. CT head showed chronic multifocal infarcts (right occipital, left parietal, right frontal, and left basal ganglia ). Repeat CT head did not show any new areas of infarct although MRI would be more sensitive to detect this. I offered the patient transfer to [facility] for MRI for definitive diagnosis. He declined as it would not change his management. - recommend continue apixaban 5 mg twice daily - recommend continue ezetimibe -recommend continue Crestor - LDL is at goal at 34 - recommend 1 month follow up in stroke Neurology Clinic -avoid hypotension as able - discussed with the patient reasons to returned to the Emergency Department including unilateral weakness, numbness, paresthesias, visual deficits, speech deficits, severe headache, or severe dizziness. The patient and his expressed agreement and understanding. - PTOT evaluated the patient, will follow up on their recommendations for discharge I discussed my recommendations with Dr. Jerrell Nicholson. Thank you for this consult. Tele Neurology will be available as needed. Please call with questions. Telehealth Consultation Telehealth Information Telehealth Information: I performed this visit using a real-time telehealth connection between my location and the patients originating location ([facility]). After connecting through interactive tele-video, patient was identified by name and date of and/or wristband check.Patient (or authorized healthcare commercial pest control representative) was informed that this was a telemedicine visit and it was being conducted confidentially over secure lines. My office door was closed and no one else was present in the room with me.Patient (or authorized healthcare commercial pest control representative) provided consent to proceed with the visit, expressed an understanding of privacy and security of the telemedicine visit, and gave permission to have a hospital commercial pest control representative in the room in order to assist with the visit and to conduct portions of the visit, as needed. I informed the patient (or authorized healthcare commercial pest control representative) that I reviewed their record and presented the opportunity for them to ask any questions regarding the visit today. The patient agreed to participate. History of Present Illness Reason for Consultation: worsening right facial droop, worsening dysarthria, headache, diffuse weakness, fatigue, low blood pressure Attending Physician: Jerrell Nicholson, DO History of Present Illness Tulio Becerra is a 80-year-old right-handed male former smoker with a past medical history of multifocal chronic infarcts (right occipital, left parietal, right frontal, and left basal ganglia) coronary artery disease s/p CABG, [place], congestive heart failure, cardiomyopathy s/p AICD, atrial fibrillation on apixaban, peripheral vascular disease, carotid artery stenoses s/p left carotid artery stent, diabetes mellitus type 2, CKD 4, hypotension who presented to [facility] on 11/05/2025 with worsening right facial droop, worsening dysarthria, headache, diffuse weakness, fatigue, and hypotension. He was evaluated by on-call Neurology who did not recommend TNK secondary to apixaban use although he was within time windows. CT head was performed and reveals his chronic infarcts in the right occipital, left parietal, right frontal, and left basal ganglia. CT angiogram head and neck was performed which shows a 40% right carotid stenoses and intracranial atherosclerotic disease. The patient takes apixaban with no missed doses. He takes ezetimibe and rosuvastatin and his LDL is at goal at 34. It is possible that some of the patient's symptoms may be stroke recrudescence as he had these symptoms with prior strokes. Unfortunately, the patient's AICD is not MRI compatible. I did offer the patient and his transfer to [facility] for MRI. They declined transfer as this will not change management administrator. NIHSS is 3 for mild aphasia, mild dysarthria, and mild right facial droop. Repeat CT head did not reveal new area of infarct, although MRI would be more sensitive to detect. The patient's blood pressure was noted to be in the 70s on arrival so stroke recrudescence is suspected. Allergies Allergy/AdvReac Type Severity Reaction Status Date / Time No Known Allergies Allergy Verified 11/04/25 15:20 Home Medications Medication Instructions Recorded Confirmed Type nitroglycerin 0.4 mg sublingual 0.4 mg sublingual Q5M PRN Chest 08/15/17 11/04/25 History tablet Pain ##0 rosuvastatin 40 mg tablet (Crestor) 40 mg PO QAM 03/30/19 11/04/25 History montelukast 10 mg tablet 10 mg PO QAM 03/15/21 11/04/25 History ezetimibe 10 mg tablet (Zetia) 10 mg PO QAM 07/29/21 11/04/25 History pregabalin 75 mg capsule (Lyrica) 75 mg PO QID 05/10/22 11/04/25 History ascorbic acid (vitamin C) 1,000 mg 1 g PO HS 10/18/23 11/04/25 History tablet (Vitamin C) cyanocobalamin (vitamin B-12) 500 mcg PO HS 10/18/23 11/04/25 History 1,000 mcg tablet (Vitamin B-12) finasteride 5 mg tablet (Proscar) 5 mg PO QAM 10/18/23 11/04/25 History apixaban 5 mg tablet (Eliquis) 5 mg PO BID #60 tabs 06/25/25 11/04/25 Rx metoprolol succinate 25 mg 25 mg PO QPM 07/21/25 11/04/25 History tablet,extended release 24 hr midodrine 5 mg tablet 5 mg PO TID 08/24/25 11/04/25 History amiodarone 200 mg tablet 200 mg PO BID 09/07/25 11/04/25 History ticagrelor 90 mg tablet 90 mg PO BID 09/07/25 11/04/25 History doxycycline hyclate 100 mg capsule 100 mg PO BID 11/04/25 11/04/25 History levothyroxine 50 mcg tablet 50 mcg PO DAILY@0600 11/04/25 11/04/25 History torsemide 20 mg tablet 20 mg PO DAILY 11/04/25 11/04/25 History Patient History Medical History Coronary artery disease PVD (peripheral vascular disease) NSVT (nonsustained ventricular tachycardia) Hx of non-ST elevation myocardial infarction (NSTEMI) (2019) Chronic HFrEF (heart failure with reduced ejection fraction) ICD (implantable cardioverter-defibrillator) in place Ambulatory dysfunction Vascular dementia Hx of orthostatic hypotension History of CVA (cerebrovascular accident) Hx of gout Generalized weakness HOYT (dyspnea on exertion) Dyslipidemia BPH (benign prostatic hyperplasia) Orthostasis 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 CKD (chronic kidney disease) stage 3, GFR 30-59 ml/min Elevated troponin LBBB (left bundle branch block) Atrial fibrillation with rapid ventricular response Stenosis of left internal carotid artery Ischemic cardiomyopathy GERD (gastroesophageal reflux disease) Hypertension Diabetes mellitus, type 2 Surgical History (Updated 09/18/25 @ 00:08 by Donnell Gil) Hx of cervical spine surgery "years ago," no ROM limitations History of esophagogastroduodenoscopy (EGD) Hx of colonoscopy Hx of tonsillectomy Hx of bilateral cataract extraction History of Amie fundoplication "years ago" Hx of umbilical hernia repair x2 History of total right knee replacement History of total left knee replacement S/P ICD (internal cardiac defibrillator) procedure (2020) [facility]; f/u serafin manzanares cardio History of coronary artery stent placement LAD and RCA 2018, [facility] S/P CABG x 2 1999, [facility]; f/u serafin manzanares cardio Family History Mother Stroke Denies family history of Crohn's disease Colorectal cancer Ulcerative colitis Social History (Updated 10/07/25 @ 08:59 by Steevn Mortensen) Smoking Status: Former smoker Tobacco Type: Cigarettes Cigarettes Per Day: 1 pack/ day; Smoking End Date: 1988; Second Hand Exposure: No; Do You Dip or Chew Tobacco: No; Hx Alcohol Use: No Hx Substance Use: No Preferred Language: Ivorian Communication Ability: Effective Communication Ability Comment: [phone] Mayonnaise Mixer Required: No Beliefs That Will Affect Care: None marital status: Current Living Situation: Spouse Current Living Situation Comment: lives at home with current occupation: Retired Feels Safe at Home: Yes Safety Concerns: Feels Safe At This Time Assistive Devices: Cane and Walker Review of Systems ROS reviewed and negative except above Physical Exam NIHSS is 3 for mild aphasia ( phonemic errors with reading), mild dysarthria, and mild right facial droop. Results & Data Vital Signs (Past 12 Hours) Vital Signs Temp Pulse Pulse Resp BP Pulse Ox O2 Del Method 11/05/25 07:40 60 11/05/25 07:08 36.5 C 65 20 139/72 96 Room Air 11/05/25 03:00 36.4 C L 73 18 111/66 97 Room Air 11/04/25 22:48 36.4 C L 75 18 104/68 97 Room Air Laboratory Results 11/05/25 11/04/25 05:48 14:01 WBC 4.73 L 4.78 L RBC 3.70 L 3.79 L Hgb 11.5 L 12.2 L Hct 34.8 L 36.4 L MCV 94.1 96.0 MCH 31.1 32.2 MCHC 33.0 33.5 RDW Std Deviation 49.1 H 50.6 H RDW Coeff of Leela 14.2 14.2 Plt Count 139 153 MPV 11.9 11.9 Immature Gran % (Auto) 0.2 0.2 Neut % (Auto) 60.9 64.5 Lymph % (Auto) 24.5 20.7 Baker % (Auto) 11.6 12.3 Eos % (Auto) 1.5 1.0 Baso % (Auto) 1.3 1.3 Neut # (Auto) 2.88 3.08 Lymph # (Auto) 1.16 L 0.99 L Baker # (Auto) 0.55 0.59 Eos # (Auto) 0.07 0.05 Baso # (Auto) 0.06 0.06 Immature Gran # (Auto) 0.01 0.01 PT 12.2 H INR 1.2 H APTT 27 PTT Ratio 1.0 Sodium 145 145 Potassium 4.2 4.1 Chloride 113 H 111 H Carbon Dioxide 23 27 Anion Gap 9 7 BUN 69 H 80 H Creatinine 2.64 H D 3.11 H Est Cr Clr Drug Dosing 31.6 Not Reportable eGFR 24.03 19.74 BUN/Creatinine Ratio 26.1 H 25.7 H Glucose 73 83 Estimat Average Glucose 126 Hemoglobin A1c 6.0 H Calcium 8.5 L 8.9 Magnesium 2.3 Total Bilirubin 0.6 0.6 AST 41 H 45 H ALT 43 50 Alkaline Phosphatase 63 70 Troponin I High Sens 12.8 B-Natriuretic Peptide 309 H Total Protein 6.4 7.1 Albumin 3.7 4.0 Globulin 2.7 3.1 Albumin/Globulin Ratio 1.4 1.3 Triglycerides 153 H Cholesterol 102 LDL Cholesterol, Calc 37 VLDL Cholesterol, Calc 31 H HDL Cholesterol 34 Cholesterol/HDL Ratio 3.[address] 11/04/25 14:12 CT SCAN OF THE BRAIN WITHOUT IV CONTRAST IMPRESSION: Chronic infarcts as above with no hemorrhage, mass effect, or evidence of acute territorial ischemia by CT criteria. Electronically signed by: Linden Thacker M.D. 11/04/2025 2:46 PM Head CTA 11/04/25 14:12 IMPRESSION: 1. Stable exam compared to the CTA head from 06/24/2025. 2. Chronic high-grade stenosis/occlusion of the M1 segments of the middle cerebral arteries with distal reconstitution of flow. 3. Chronic high grade stenosis versus occlusion of the right posterior cerebral artery. 4. Chronic moderate to high-grade stenoses of the distal internal carotid arteries. Electronically signed by: Don Dennis M.D. 11/04/2025 2:58 PM Neck CTA 11/04/25 14:12 IMPRESSION: 1. Interval left carotid transarterial revascularization with significant interv al improvement in vessel narrowing since prior CTA. Moderate luminal narrowing within the mid aspect of the stent. 2. No change in 40% stenosis of the proximal right internal carotid artery. 3. Redemonstration of multifocal stenoses within the bilateral vertebral arteries, as detailed above. 4. Severe stenosis of the petrous portion of the left internal carotid artery and moderate stenosis of the petrous portion of the right internal carotid artery. Electronically signed by: Dexter Ibarra M.D. 11/04/2025 3:[address] 11/05/25 09:00 CT SCAN OF THE BRAIN WITHOUT IV CONTRAST IMPRESSION: Chronic infarcts as above with no hemorrhage, mass effect, or evidence of acute territorial ischemia by CT criteria. Findings are similar to yesterday. Electronically signed by: Linden Thacker M.D. 11/05/2025 9:17 AM Medications Administered Home Medications Medication Instructions Recorded Confirmed Last Taken nitroglycerin 0.4 mg sublingual 0.4 mg sublingual Q5M PRN Chest 08/15/17 11/04/25 Unknown tablet Pain ##0 rosuvastatin 40 mg tablet (Crestor) 40 mg PO QAM 03/30/19 11/04/25 11/04/25 montelukast 10 mg tablet 10 mg PO QAM 03/15/21 11/04/25 11/04/25 ezetimibe 10 mg tablet (Zetia) 10 mg PO QAM 07/29/21 11/04/25 11/04/25 pregabalin 75 mg capsule (Lyrica) 75 mg PO QID 05/10/22 11/04/25 11/04/25 12:00 ascorbic acid (vitamin C) 1,000 mg 1 g PO HS 11/24/23 12/11/25 12/10/25 tablet (Vitamin C) cyanocobalamin (vitamin B-12) 500 mcg PO HS 10/18/23 11/04/25 11/03/25 1,000 mcg tablet (Vitamin B-12) finasteride 5 mg tablet (Proscar) 5 mg PO QAM 10/18/23 11/04/25 11/04/25 apixaban 5 mg tablet (Eliquis) 5 mg PO BID #60 tabs 06/25/25 11/04/25 11/04/25 08:00 metoprolol succinate 25 mg 25 mg PO QPM 07/21/25 11/04/25 11/03/25 tablet,extended release 24 hr midodrine 5 mg tablet 5 mg PO TID 08/24/25 11/04/25 11/04/25 12:00 amiodarone 200 mg tablet 200 mg PO BID 09/07/25 11/04/25 11/04/25 08:00 ticagrelor 90 mg tablet 90 mg PO BID 09/07/25 11/04/25 11/04/25 08:00 doxycycline hyclate 100 mg capsule 100 mg PO BID 11/04/25 11/04/25 Unknown levothyroxine 50 mcg tablet 50 mcg PO DAILY@0600 11/04/25 11/04/25 Unknown torsemide 20 mg tablet 20 mg PO DAILY 11/04/25 11/04/25 Unknown Active Medications Generic Name Dose Route Start Last Admin Trade Name Freq PRN Reason Stop Dose Admin Amiodarone HCl 200 mg 11/04/25 21:00 11/05/25 09:34 Amiodarone 200 Mg Tab PO 12/04/25 20:59 200 mg BID GITA Administration Apixaban 5 mg 11/04/25 21:00 11/05/25 09:34 Apixaban 5 Mg Tablet PO 12/04/25 20:59 5 mg BID GITA Administration Ezetimibe 10 mg 11/05/25 09:00 11/05/25 09:35 Ezetimibe 10 Mg Tab PO 12/05/25 08:59 10 mg QAM GITA Administration Finasteride 5 mg 11/05/25 09:00 11/05/25 09:34 Finasteride 5 Mg Tab PO 12/05/25 08:59 5 mg QAM GITA Administration Levothyroxine Sodium 50 mcg 11/05/25 06:00 11/05/25 06:01 Levothyroxine Sodium 50 Mcg Tablet PO 12/05/25 05:59 50 mcg DAILY@0600 GITA Administration Montelukast Sodium 10 mg 11/05/25 09:00 11/05/25 09:35 Montelukast Sodium 10 Mg Tablet PO 12/05/25 08:59 10 mg QAM GITA Administration Pregabalin 75 mg 11/05/25 09:00 11/05/25 09:38 Pregabalin 75 Mg Cap PO 12/05/25 08:59 75 mg DAILY GITA Administration Rosuvastatin Calcium 40 mg 11/05/25 09:00 11/05/25 09:33 Rosuvastatin Calcium 20 Mg Tab PO 12/05/25 08:59 40 mg QAM GITA Administration Ticagrelor 90 mg 11/04/25 21:00 11/05/25 09:34 Ticagrelor 90 Mg Tab PO 12/04/25 20:59 90 mg BID GITA Administration
--- NOTE | 2025-11-05 12:19 | Hospitalist Progress Note ---
Date of Service November 05, 2025 Assessment & Plan (1) Stroke-like symptoms: (2) History of CVA (cerebrovascular accident): (3) Acute worsening of stage 3 chronic kidney disease: Plan: 80-year-old male with history of CVA,coronary disease, CABG, CHF R EF, c ardiomyopathy, status post AICD, paroxysmal atrial fibrillation on Eliquis PVD, carotid artery stenosis, diabetes type 2, CKD stage III-IV presenting with dysarthria and right-sided facial droop which started this morning. Strokelike symptoms-dysarthria, right-sided facial droop -In setting of hypotensive episode with SBP in 70s -Suspect hypotension causing recrudescence of stroke -No deficits today Plan -D/w neurology, continue current regimen -Agree that transferring patient for MRI would unlikely post exchange manager -Continue home eliquis, brilinta, crestor and zetia #Acute kidney injury on CKD stage III -Nephrology following, Cr improved with IVF Plan -Appreciate nephrology input -Continue IVF for today -BMP in AM -Avoid nephrotoxic agents if possible other chronic medical conditions: CAD status post CABG-continue ticagrelor, Zetia, rosuvastatin CHF with reduced ejection fraction, cardiomyopathy, status post AICD placement- currently patient is hypovolemic, hold torsemide Paroxysmal atrial fibrillation- resume home metoprolol continue amiodarone and Eliquis PVD, carotid artery stenosis-continue rosuvastatin and ticagrelor Diabetes type 2-not on any medications, last A1c was 6.9 as of June 2025, BSG at the ER is 83 chronic anemia-hemoglobin at baseline, 12 DVT prophylaxis continue usual Eliquis twice daily for A-fib Full code Disposition Admit to PCU I spent a total of 46 minutes coordinating, documenting, and providing care for this patient excluding time spent in the performance of separately billed services. This included personally reviewing all current laboratories and imaging studies, medical reconciliation, outpatient chart review and discussion with specialists Admission and Anticipated Discharge Date Admission Date: November 04, 2025 Subjective Feeling very well this AM and denies any complaints. Patient denies F/C, CP, palpitations, SOB, dyspnea, abd pain, N/V/D. d/w at bedside Physical Exam Physical Exam: Vitals and labs reviewed General: Well appearing, NAD HEENT: EOMI, PERRLA Neck: Supple Cardiac: RRR no rubs gallops or murmurs Lungs: CTA no rhonchi wheezing or rales Abd: S NT ND BS positive : Deffered MSK: Full ROM. No obvious deformities Ext: No Edema cyanosis Skin: Warm, Dry Neuro: AOx3 No focal deficits. Psych: Normal Mood Results & Data Results & Data Vital Signs (Past 12 Hours) Vital Signs Temp Pulse Pulse Resp BP Pulse Ox O2 Del Method 11/05/25 11:13 36.2 C L 62 19 110/71 95 Room Air 11/05/25 07:40 60 11/05/25 07:08 36.5 C 65 20 139/72 96 Room Air 11/05/25 03:00 36.4 C L 73 18 111/66 97 Room Air Laboratory Results Abnormal lab results 11/04/25 11/05/25 Range/Units 14:01 05:48 WBC 4.78 L 4.73 L (4.8-10.8) K/ul RBC 3.79 L 3.70 L (4.70-6.10) M/uL Hgb 12.2 L 11.5 L (14.0-18.0) g/dL Hct 36.4 L 34.8 L (42.0-52.0) % RDW Std Deviation 50.6 H 49.1 H (36.4-46.3) fL Lymph # (Auto) 0.99 L 1.16 L (1.20-3.40) K/uL PT 12.2 H (9.0-12.0) Seconds INR 1.2 H (0.9-1.1) Chloride 111 H 113 H (98-107) mmol/L BUN 80 H 69 H (6-23) mg/dl Creatinine 3.11 H 2.64 H D (0.6-1.4) mg/dl BUN/Creatinine Ratio 25.7 H 26.1 H (10-20) Hemoglobin A1c 6.0 H (4.5-5.6) % Calcium 8.5 L (8.6-10.3) mg/dl AST 45 H 41 H (13-39) U/L B-Natriuretic Peptide 309 H (0-100) pg/ml Triglycerides 153 H (0-150) mg/dl VLDL Cholesterol, Calc 31 H (0-30) mg/dl
--- NOTE | 2025-11-05 13:39 | Pharmacy Report ---
- Date of Service November 05, 2025 - Pharmacy CVA/TIA Medication Review Medications to Prevent Stroke handout has been added to the patients discharge packet. Antiplatelet(s) * brilinta 90 mg bid Cholesterol * High intensity statin: rosuvastatin 40 mg daily DVT Prophylaxis * see below Therapeutic Anticoagulation * eliquis 5 mg bid Type 2 Diabetes * Most recent A1c 6.0% - indicates pre-diabetes range. Would encourage healthy lifestyle to maintain blood sugars in range.
--- NOTE | 2025-11-05 20:15 | Communication Note ---
Date of Service: November 05, 2025
[2025-11-06 06:24] LABS: Hematocrit (blood only) 36.0 % (42.0-52.0); Hemoglobin 11.7 g/dL (14.0-18.0); Mean Corpuscular Hemoglobin 31.3 pg (25.0-34.0); Mean Corpuscular Volume 96.3 fL (80.0-100.0); Platelet Count 134 K/uL (130-400); RDW Standard Deviation 50.7 fL (36.4-46.3); Red Blood Count 3.74 M/uL (4.70-6.10); White Blood Count 5.59 K/ul (4.8-10.8)
[2025-11-06 06:51] LABS: Albumin Level 3.7 gm/dl (3.4-5.0); Anion Gap 6.0 (3-11); Blood Urea Nitrogen 52.0 mg/dl (6-23); Calcium 8.6 mg/dl (8.6-10.3); Carbon Dioxide 22.0 mmol/L (21-32); Chloride 114.0 mmol/L (98-107); Creatinine Clr Calc Pharmacy 36.7 ml/min; Glucose 98.0 mg/dl (70-99(Fasting)); Potassium 4.6 mmol/L (3.5-5.1); Sodium 142.0 mmol/L (136-145)
[2025-11-06 07:06] VITALS: BP 130/81; RESP 19; TEMP 98.2; O2SAT 94
[2025-11-06] MEDS: METOPROLOL SUCC 25MG EXT REL TAB PO SCH (08:04)
[2025-11-06] MEDS ORDERED: STROKE PATIENT DISCHARGE STA (09:57)
--- NOTE | 2025-11-06 10:01 | Discharge Summary ---
Discharge Summary Date of Service November 06, 2025 Principal Dx & Hospital Course #1 = Principal Diagnosis (1) Stroke-like symptoms: (2) History of CVA (cerebrovascular accident): (3) Acute worsening of stage 3 chronic kidney disease: 80-year-old male with history of CVA,coronary disease, CABG, CHF R EF, cardiomyopathy, status post AICD, paroxysmal atrial fibrillation on Eliquis PVD, carotid artery stenosis, diabetes type 2, CKD stage III-IV presenting with dysarthria and right-sided facial droop. CTH without acute pathology. cannot get MRI brain due to pacemaker. This occurred in setting of transient hypotension. Neurology consulted, suspect his symptoms were secondary to hypotension causing recrudescence of stroke. No further episodes. BP stable today. He feels well without any complaints. He wishes to go home. Vitals and labs are stable on day of discharge. He is to f/u with his PCP, neurologist, and poultry boner upon discharge. Stroke like symptoms-dysarthria, right-sided facial droop -In setting of hypotensive episode with SBP in 70s -Suspect hypotension causing recrudescence of stroke -No deficits today Plan -D/w neurology, continue current regimen -Agree that transferring patient for MRI would unlikely change booth attendant -Continue home eliquis, brilinta, crestor and zetia #Acute kidney injury on CKD stage III -Nephrology following, Cr improved with IVF other chronic medical conditions: CAD status post CABG-continue ticagrelor, Zetia, rosuvastatin CHF with reduced ejection fraction, cardiomyopathy, status post AICD placement- resume home diuretic Paroxysmal atrial fibrillation- resume home metoprolol continue amiodarone and Eliquis PVD, carotid artery stenosis-continue rosuvastatin and ticagrelor Diabetes type 2-not on any medications, last A1c was 6.9 as of June 2025, BSG at the ER is 83 chronic anemia-hemoglobin at baseline, 12 DVT prophylaxis continue usual Eliquis twice daily for A-fib Full code Disposition Admit to PCU I spent a total of 40 minutes coordinating, documenting, and providing care for this patient excluding time spent in the performance of separately billed services. This included personally reviewing all current laboratories and imaging studies, medical reconciliation, outpatient chart review and discussion with specialists Notes For Next Care Provider Medication Changes From Visit none Admission HPI Per Admitting Provider 80-year-old male with history of CVA,coronary disease, CABG, CHF R EF, car diomyopathy, status post AICD, paroxysmal atrial fibrillation on Eliquis PVD, carotid artery stenosis, diabetes type 2, CKD stage III-IV presenting with dysarthria and right-sided facial droop which started this morning. History obtained from patient and his Piper at the bedside. Patient was doing fine until this morning, upon waking up, the patient states felt very tired. While standing and working in the kitchen, he suddenly felt very dizzy, and felt that he was going to pass out. He was able to sit on the chair, and was checked by his . She noticed that patient was having slurred speech, worsening of baseline right facial droop and blurring of vision. Patient's was able to take his blood pressure and it measured systolic 80s. They called the patient's PCP and was advised to proceed to the ER. At the ER, blood pressure was 110/67, pulse rate of 87, respiratory rate 18, sat 96% on room air, afebrile. Stroke alert was called. 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 Creatinine noted to be elevated at 3.11 BNP 300s on my exam, the patient was seen sitting up in bed, comfortable, awake and alert, oriented x 3, answering all questions appropriately As per , the patient's dysarthria is still present but seems to be improving as well as his a right sided facial droop. The patient states he has dizziness has resolved, and also denying any headache, nausea or vomiting, blurring of vision, or any other focal neurologic deficits. No active chest pain or shortness of breath. He does not have any poor appetite, nausea or vomiting, diarrhea episodes at home. No NSAID use. Discharge Exam Vitals and labs reviewed General: Well appearing, NAD HEENT: EOMI, PERRLA Neck: Supple Cardiac: RRR no rubs gallops or murmurs Lungs: CTA no rhonchi wheezing or rales Abd: S NT ND BS positive : Deffered MSK: Full ROM. No obvious deformities Ext: No Edema cyanosis Skin: Warm, Dry Neuro: AOx3 No focal deficits. Psych: Normal Mood Updated Medication List Medication Instructions Recorded Confirmed Type nitroglycerin 0.4 mg sublingual 0.4 mg sublingual Q5M PRN Chest 08/15/17 History tablet Pain ##0 rosuvastatin 40 mg tablet (Crestor) 40 mg PO QAM 03/30/19 11/04/25 History montelukast 10 mg tablet 10 mg PO QAM 03/15/21 11/04/25 History ezetimibe 10 mg tablet (Zetia) 10 mg PO QAM 07/29/21 11/04/25 History pregabalin 75 mg capsule (Lyrica) 75 mg PO BID 05/10/22 11/05/25 History ascorbic acid (vitamin C) 1,000 mg 1 g PO HS 10/18/23 11/04/25 History tablet (Vitamin C) cyanocobalamin (vitamin B-12) 500 mcg PO HS 10/18/23 11/04/25 History 1,000 mcg tablet (Vitamin B-12) finasteride 5 mg tablet (Proscar) 5 mg PO QAM 10/18/23 11/04/25 History apixaban 5 mg tablet (Eliquis) 5 mg PO BID #60 tabs 06/25/25 11/04/25 Rx metoprolol succinate 25 mg 25 mg PO QPM 07/21/25 11/04/25 History tablet,extended release 24 hr midodrine 5 mg tablet 5 mg PO TID 08/24/25 11/04/25 History amiodarone 200 mg tablet 200 mg PO BID 09/07/25 11/04/25 History ticagrelor 90 mg tablet 90 mg PO BID 09/07/25 11/04/25 History doxycycline hyclate 100 mg capsule 100 mg PO BID 11/04/25 11/04/25 History levothyroxine 50 mcg tablet 50 mcg PO DAILY@0600 11/04/25 11/04/25 History torsemide 20 mg tablet 20 mg PO DAILY 11/04/25 11/04/25 History Hospital Stay Data Consultations 11/04/25 16:07 ED Decision to Admit Stat 11/04/25 16:46 Consult Neurology Routine Diagnostic Imagining Performed 11/04/25 14:12 CT angio head w con Stat CT angio neck with con Stat CT head/brain wo con Stat 12/12/25 09:00 CT head/brain wo con Routine Pending Results Patient Have Any Pending Studies at Discharge: No Discharge Instructions Given to Patient (Per Discharging Provider) Please return to ED should symptoms occur again. No changes to your home medications. please follow up with your neurologist. Please follow up with your poultry boner as well; they want a noncontrast CT abdomen pelvis as outpatient. they will coordinate this. Total Time Total Time Spent Total Time Spent (In Minutes): 40
--- NOTE | 2025-11-06 10:02 | Nephrology Progress Note ---
Date of Service November 06, 2025 Assessment & Plan Admission and Anticipated Discharge Date Admission Date: November 04, 2025 Results & Data Vital Signs (Past 12 Hours) Vital Signs Temp Pulse Pulse Resp BP Pulse Ox O2 Del Method 11/06/25 07:13 87 11/06/25 07:06 36.8 C 82 19 130/81 94 Room Air 11/06/25 02:49 36.5 C 73 18 135/69 96 Room Air 11/05/25 22:24 36.3 C L 61 18 149/74 H 95 Room Air Laboratory Results Laboratory Results - last 24 hr 11/06/25 05:34 WBC 5.59 RBC 3.74 L Hgb 11.7 L Hct 36.0 L MCV 96.3 MCH 31.3 MCHC 32.5 RDW Std Deviation 50.7 H RDW Coeff of Leela 14.4 Plt Count 134 MPV 11.9 Sodium 142 Potassium 4.6 Chloride 114 H Carbon Dioxide 22 Anion Gap 6 BUN 52 H Creatinine 2.27 H D Est Cr Clr Drug Dosing 36.7 eGFR 28.80 BUN/Creatinine Ratio 22.9 H Glucose 98 Calcium 8.6 Phosphorus 2.8 Albumin 3.7 PG Care Time/CCT Total # of Minutes Spent Total Time Spent with Patient: Total time spent is greater than 50% in coordination of care (as documented) at patient's floor/unit and/or counseling patient: Coding
[2025-11-06 10:09] VITALS: PULSE 82
== END 2025-11-06 10:21 | disposition home or self-care (01) | DRG 314 ==
LOC: ED 13:42 → SUATTDRO 16:05 → 4W 16:05